=== PATIENT | female | born 1940 | race Caucasian/White ===

== ENCOUNTER 2017-01-22 11:48 | Inpatient (IN) | payer MEDICARE ==
[2017-01-22] MEDS ORDERED: IPRATROPIUM-ALBUTEROL 3 ML NEB INHALATION STA (12:33)
--- NOTE | 2017-01-22 12:35 | ED ---
General Adult HPI - General Chief complaint: Shortness of Breath Stated complaint: Diff Breathing Time Seen by Provider: 01/22/17 12:19 Source: patient, EMS, RN notes reviewed Mode of arrival: EMS Limitations: no limitations - History of Present Illness Initial comments: Patient is a pleasant 76-year-old female presenting to the emergency Department with difficulty breathing. Symptoms have progressed with the past 3-4 days. Patient does have cough with occasional brown sputum. Patient is unclear whether or not she could be having some fevers. Patient has myalgias. Patient believes she may have a history of some mild COPD and states she has smoked 5 cigars a day for the past 60 years. No calf pain or leg swelling. No chest pain. - Related Data Home Medications Medication Instructions Recorded Confirmed Levothyroxine Sodium [Synthroid] 50 mcg PO QAM 03/03/14 01/22/17 Aspirin 81 mg PO QAM 07/29/14 01/22/17 Atenolol 100 mg PO HS 09/25/15 01/22/17 Furosemide [Lasix] 40 mg PO QAM 09/25/15 01/22/17 Baclofen 10 mg PO TID PRN 01/02/16 01/22/17 ALPRAZolam [Xanax] 2 mg PO Q8H PRN 07/17/16 01/22/17 DULoxetine HCL [Cymbalta] 60 mg PO DAILY 07/17/16 01/22/17 oxyCODONE-APAP 10-325MG [Percocet 1 tab PO Q6HR PRN 07/17/16 01/22/17 10-325 mg] Disopyramide Phosphate 150 mg PO BID 01/22/17 01/22/17 Esomeprazole Magnesium [NexIUM 20 mg PO DAILY 01/22/17 01/22/17 24Hr] Allergies Allergy/AdvReac Type Severity Reaction Status Date / Time adhesive tape Allergy Rash/Hives Verified 01/22/17 12:15 Influenza Virus Vaccines Allergy "MAKES HER Verified 01/22/17 12:15 FEEL SICK" Sulfa (Sulfonamide Allergy Rash/Hives Verified 01/22/17 12:15 Antibiotics) amoxicillin trihydrate AdvReac Diarrhea Verified 01/22/17 12:15 [From Augmentin] potassium clavulanate AdvReac Diarrhea Verified 01/22/17 12:15 [From Augmentin] quinidine AdvReac BLOOD CLOTS Verified 01/22/17 12:15 Review of Systems ROS Statement: Those systems with pertinent positive or pertinent negative responses have been documented in the HPI. ROS Other: All systems not noted in ROS Statement are negative. Constitutional: Reports: as per HPI Eyes: Denies: eye pain ENT: Denies: ear pain Respiratory: Reports: cough, dyspnea Cardiovascular: Denies: chest pain Endocrine: Reports: fatigue Gastrointestinal: Denies: abdominal pain Genitourinary: Denies: dysuria Musculoskeletal: Denies: back pain Skin: Denies: rash Neurological: Denies: weakness Past Medical History Past Medical History: Atrial Fibrillation, Atrial Flutter, GERD/Reflux, Hyperlipidemia, Hypertension, Mitral Valve Prolapse (MVP), Rheumatoid Arthritis (RA), Thyroid Disorder Additional Past Medical History / Comment(s): OTHER HX: 03/06/14, 03/30/14, , 07/29/14 with CDIFF colitis, HYPOTHYROID, MVP, urinary incontinence, PROLAPSED MITRAL VALVE- NO PROBLEMS FOR 30 YRS. History of Any Multi-Drug Resistant Organisms: None Reported Date of last positivie culture/infection: UNK MDRO Source:: FECAL Past Surgical History: Adenoidectomy, Cholecystectomy, Hysterectomy, Joint Replacement, Orthopedic Surgery, Tonsillectomy Additional Past Surgical History / Comment(s): 02/18/16 total R hip arthroplasty. Other surgical HX: BILATERAL KNEE REPLACEMENT (2003-RIGHT & 2005 - LEFT); LOWER LUMBAR LAMINECTOMYL4-L5 (2007); LEFT HIP REPLACEMENT (2012) ; RIGHT SHOULDER REPLACEMENT (2008), left total knee arthroplasty revision. Bilateral cataracts with lens implants. FECALCAL TRASPLANT TX FOR C-DIFF three times. Past Anesthesia/Blood Transfusion Reactions: No Reported Reaction Past Psychological History: Anxiety, Depression Smoking Status: Current every day smoker Past Alcohol Use History: None Reported Past Drug Use History: None Reported - Past Family History Mother Family Medical History: Cancer Father Family Medical History: CVA/TIA Sister(s) Family Medical History: Unable to Obtain Daughter(s) Family Medical History: COPD, Myocardial Infarction ([place]) Additional Family Medical History / Comment(s): Mother at age 60 yrs of emphysema/lung CA Son(s) Family Medical History: Myocardial Infarction ([place]) Additional Family Medical History / Comment(s): Father at age 74yrs with "CVA of his larynx" General Exam Limitations: no limitations General appearance: alert, in no apparent distress Head exam: Present: atraumatic Eye exam: Present: normal appearance, PERRL ENT exam: Present: normal oropharynx Neck exam: Present: normal inspection Respiratory exam: Present: normal lung sounds bilaterally Cardiovascular Exam: Present: regular rate, normal rhythm GI/Abdominal exam: Present: soft. Absent: tenderness Extremities exam: Present: normal inspection. Absent: pedal edema, calf tenderness Back exam: Present: normal inspection Neurological exam: Present: alert Psychiatric exam: Present: normal affect, normal mood Skin exam: Present: normal color Course Vital Signs 01/22/17 01/22/17 01/22/17 11:55 12:14 12:29 Temperature 97.7 F Pulse Rate 59 L 54 L Pulse Rate [ Pulse Oximetery ] Respiratory 18 Rate Blood Pressure 103/56 84/46 91/46 O2 Sat by Pulse 100 Oximetry 01/22/17 01/22/17 01/22/17 12:42 12:44 12:50 Temperature Pulse Rate 52 L 50 L Pulse Rate [ 56 L Pulse Oximetery ] Respiratory 22 20 16 Rate Blood Pressure 81/43 O2 Sat by Pulse 99 Oximetry 01/22/17 01/22/17 13:27 13:50 Temperature 97.2 F L Pulse Rate 55 L 60 Pulse Rate [ Pulse Oximetery ] Respiratory 18 Rate Blood Pressure 87/47 90/46 O2 Sat by Pulse 100 100 Oximetry EKG Findings - EKG Comments: EKG Findings:: Sinus bradycardia 56. First-degree AV block with [place] of 246. QRS 88. QT 514. QTC 496. Left axis. Inferior Q waves. Septal Q waves. No acute ST change. Medical Decision Making - Medical Decision Making Patient reevaluated and resting comfortably in bed. Patient states she does have a history of anemia several times previously with unclear etiology. Case discussed in detail with Dr. Weinberg who is familiar with this patient and will admit for Dr. Marino. Consults with JAXSON and Dr. borden. Dr. Byrd has been paged. - Lab Data Result diagrams: 01/22/17 12:20 01/22/17 12:20 Lab Results 10/13/17 10/13/17 10/13/17 Range/Units 12:20 12:20 12:20 WBC 6.2 (3.8-10.6) k/uL RBC 2.66 L (3.80-5.40) m/uL Hgb 5.8 L* (11.4-16.0) gm/dL Hct 20.1 L (34.0-46.0) % MCV 75.6 L (80.0-100.0) fL MCH 21.7 L (25.0-35.0) pg MCHC 28.7 L (31.0-37.0) g/dL RDW 19.2 H (11.5-15.5) % Plt Count 336 (150-450) k/uL Neutrophils % 69 % Lymphocytes % 19 % Monocytes % 7 % Eosinophils % 2 % Basophils % 0 % Neutrophils # 4.3 (1.3-7.7) k/uL Lymphocytes # 1.2 (1.0-4.8) k/uL Monocytes # 0.5 (0-1.0) k/uL Eosinophils # 0.1 (0-0.7) k/uL Basophils # 0.0 (0-0.2) k/uL Manual Slide Review Performed Large Platelets Present Hypochromasia Marked Poikilocytosis Marked Anisocytosis Slight Microcytosis Moderate PT (9.0-12.0) sec INR (<1.2) APTT (22.0-30.0) sec D-Dimer (<0.60) mg/L FEU Sodium 138 (137-145) mmol/L Potassium 3.5 (3.5-5.1) mmol/L Chloride 102 (98-107) mmol/L Carbon Dioxide 23 (22-30) mmol/L Anion Gap 13 mmol/L BUN 10 (7-17) mg/dL Creatinine 0.85 (0.52-1.04) mg/dL Est GFR (MDRD) Af Amer >60 (>60 ml/min/1.73 sqM) Est GFR (MDRD) Non-Af >60 (>60 ml/min/1.73 sqM) Glucose 99 (74-99) mg/dL Calcium 8.9 (8.4-10.2) mg/dL Total Bilirubin 0.2 (0.2-1.3) mg/dL AST 16 (14-36) U/L ALT 21 (9-52) U/L Alkaline Phosphatase 95 (38-126) U/L Total Creatine Kinase 33 (30-135) U/L CK-MB (CK-2) 0.4 (0.0-2.4) ng/mL CK-MB (CK-2) Rel Index 1.2 Troponin I <0.012 (0.000-0.034) ng/mL NT-Pro-B Natriuret Pep pg/mL Total Protein 6.7 (6.3-8.2) g/dL Albumin 3.7 (3.5-5.0) g/dL Stool Occult Blood (Negative) 01/22/17 01/22/17 01/22/17 Range/Units 12:20 12:20 14:00 WBC (3.8-10.6) k/uL RBC (3.80-5.40) m/uL Hgb (11.4-16.0) gm/dL Hct (34.0-46.0) % MCV (80.0-100.0) fL MCH (25.0-35.0) pg MCHC (31.0-37.0) g/dL RDW (11.5-15.5) % Plt Count (150-450) k/uL Neutrophils % % Lymphocytes % % Monocytes % % Eosinophils % % Basophils % % Neutrophils # (1.3-7.7) k/uL Lymphocytes # (1.0-4.8) k/uL Monocytes # (0-1.0) k/uL Eosinophils # (0-0.7) k/uL Basophils # (0-0.2) k/uL Manual Slide Review Large Platelets Hypochromasia Poikilocytosis Anisocytosis Microcytosis PT 10.3 (9.0-12.0) sec INR 1.0 (<1.2) APTT 19.8 L (22.0-30.0) sec D-Dimer 1.01 H (<0.60) mg/L FEU Sodium (137-145) mmol/L Potassium (3.5-5.1) mmol/L Chloride (98-107) mmol/L Carbon Dioxide (22-30) mmol/L Anion Gap mmol/L BUN (7-17) mg/dL Creatinine (0.52-1.04) mg/dL Est GFR (MDRD) Af Amer (>60 ml/min/1.73 sqM) Est GFR (MDRD) Non-Af (>60 ml/min/1.73 sqM) Glucose (74-99) mg/dL Calcium (8.4-10.2) mg/dL Total Bilirubin (0.2-1.3) mg/dL AST (14-36) U/L ALT (9-52) U/L Alkaline Phosphatase (38-126) U/L Total Creatine Kinase (30-135) U/L CK-MB (CK-2) (0.0-2.4) ng/mL CK-MB (CK-2) Rel Index Troponin I (0.000-0.034) ng/mL NT-Pro-B Natriuret Pep 572 pg/mL Total Protein (6.3-8.2) g/dL Albumin (3.5-5.0) g/dL Stool Occult Blood Negative (Negative) - Radiology Data Radiology results: image reviewed (Chest x-ray shows no acute process. Hiatal hernia.) Critical Care Time Critical Care Time: Yes Total Critical Care Time: 31 Disposition Clinical Impression: Anemia, Dyspnea Disposition: ADMITTED IP TO [facility] Condition: Serious Referrals: Franklyn Marino DO [Primary Care Provider] - 1-2 days Decision Time: 14:32
[2017-01-22 13:32] LABS: Prothrombin Time 10.3 sec (9.0-12.0)
[2017-01-22 13:33] LABS: Anisocytosis Slight; Basophils % (A) 0 %; CH 22.4; CHCM 29.3; Eosinophils # (A) 0.1 k/uL (0-0.7); Eosinophils % (A) 2 %; HCT 20.1 % (34.0-46.0); HDW 4.67; Hypochromasia Marked; Luc % (Auto) 2; Lymphocytes # (A) 1.2 k/uL (1.0-4.8); Lymphocytes % (A) 19 %; MCH 21.7 pg (25.0-35.0); MCHC 28.7 g/dL (31.0-37.0); MCV 75.6 fL (80.0-100.0); Microcytosis Moderate; Monocytes # (A) 0.5 k/uL (0-1.0); Monocytes % (A) 7 %; Neutrophils # (A) 4.3 k/uL (1.3-7.7); Neutrophils % (A) 69 %; Poikilocytosis Marked; RBC 2.66 m/uL (3.80-5.40); RDW 19.2 % (11.5-15.5); WBC 6.2 k/uL (3.8-10.6); WBC (Perox) 6.45
[2017-01-22 13:36] LABS: HGB 5.8 gm/dL (11.4-16.0)
[2017-01-22 13:42] LABS: ALT 21 U/L (9-52); AST 16 U/L (14-36); Alkaline Phosphatase 95 U/L (38-126); Anion Gap 13 mmol/L; Blood Urea Nitrogen 10 mg/dL (7-17); Calcium 8.9 mg/dL (8.4-10.2); Carbon Dioxide 23 mmol/L (22-30); Chloride 102 mmol/L (98-107); Glucose 99 mg/dL (74-99); Non-African American GFR(MDRD) >60 (>60 ml/min/1.73 sqM); Potassium 3.5 mmol/L (3.5-5.1); Sodium 138 mmol/L (137-145); Total Bilirubin 0.2 mg/dL (0.2-1.3); Total Protein 6.7 g/dL (6.3-8.2)
--- NOTE | 2017-01-22 13:43 | XR ---
EXAMINATION TYPE: XR chest 2V DATE OF EXAM: 01/22/2017 COMPARISON: 07/17/2016 HISTORY: Shortness of breath and possible bronchitis. TECHNIQUE: Frontal and lateral views of the chest are obtained. FINDINGS: There is no focal air space opacity, pleural effusion, or pneumothorax seen. The cardiac silhouette size is within normal limits. The osseous structures are intact. Enlarging partial intra thoracic stomach/large hiatal hernia as seen in comparison to the prior exam. Partial visualization o f the right humeral arthroplasty. Note is made of high riding left humeral head that may relate to un derlying rotator cuff injury/tear. IMPRESSION: 1. No acute cardiopulmonary process. 2. Enlarging partial intrathoracic stomach/large hiatal hernia in comparison to the prior exam.
[2017-01-22 13:44] LABS: Partial Thromboplastin Time 19.8 sec (22.0-30.0)
[2017-01-22 13:55] LABS: Creatine Kinase 33 U/L (30-135); Large Platelets Present; Manual Review Performed
[2017-01-22 14:08] LABS: Creatine Kinase MB 0.4 ng/mL (0.0-2.4); Troponin I <0.012 ng/mL (0.000-0.034)
[2017-01-22] MEDS ORDERED: PANTOPRAZOLE 40 MG/10 ML VIAL IVP STA (14:08)
[2017-01-22] MEDS ORDERED: NALOXONE 0.4 MG/ML 1 ML VIAL IV PRN (14:35)
[2017-01-22] MEDS: SODIUM CHLORIDE 0.9% 1,000 ML IV SCH (14:37)
[2017-01-22] MEDS ORDERED: BACLOFEN 10 MG TAB PO PRN (15:33)
--- NOTE | 2017-01-22 15:33 | P.HPIM ---
History of Present Illness H&P Date: 01/22/17 This is a 75-year-old female one of Dr. 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 Marino in office about a month ago and the last time she had her blood drawn was about 4 month ago, patient was hospitalized in the past for similar scenario with the hemoglobin dropping to the findings in 6 she underwent upper and lower endoscopy as well as capsule endoscopy without finding any source of bleeding at this time. Patient will be admitted to the hospital and to the intensive care unit as her blood pressure was admitted on the low side blood pressure was 90/50 her heart rate is stable at this time. However because of her hemoglobin and because of her antibodies patient would need to have blood transfusion after checking for the antibodies. ICU consultation Dr. Byrd as well as GI consultation Dr. Mccormack. Patient did have a negative guaiac stool I believe patient will need to be evaluated by hematology oncology at this time to rule out any myelodysplasia. Review of Systems Constitutional: Reports fatigue, Reports lethargy, Reports malaise, Reports weakness, Denies anorexia, Denies chronic headaches, Denies chronic pain, Denies weight gain, Denies weight loss Eyes: denies blurred vision, denies bulging eye, denies decreased vision, denies diplopia Ears: bilateral: decreased hearing Ears, nose, mouth and throat: Denies dysphagia, Denies epistaxis, Denies neck lump, Denies swelling in throat, Denies sore throat, Denies vertigo Cardiovascular: Reports decreased exercise tolerance, Reports dyspnea on exertion, Reports high blood pressure, Reports shortness of breath, Denies chest pain, Denies phlebitis, Denies rapid heart beat, Denies syncope Respiratory: Denies congestion, Denies cough, Denies cough with sputum, Denies home oxygen, Denies sleep apnea, Denies snoring, Denies wheezing Gastrointestinal: Denies abdominal pain, Denies belching, Denies BRBPR, Denies heartburn, Denies hematemesis, Denies hematochezia, Denies indigestion, Denies melena, Denies nausea, Denies vomiting Genitourinary: Reports as per HPI Menstruation: Reports postmenopausal Musculoskeletal: Denies myalgias Musculoskeletal: absent: ankle pain, ankle stiffness, ankle swelling, elbow pain , elbow stiffness, elbow swelling, foot pain, foot stiffness, foot swelling, hand pain, hand stiffness, hand swelling, hip pain, hip stiffness, hip swelling , knee pain, knee stiffness, knee swelling, shoulder pain, shoulder stiffness, shoulder swelling, wrist pain, wrist stiffness, wrist swelling Integumentary: Denies pruritus, Denies rash Neurological: Denies numbness, Denies weakness Psychiatric: Reports anxiety, Reports depression, Denies sadness/tearfulness, Denies sleep disturbances, Denies suicidal ideation Past Medical History Past Medical History: Atrial Fibrillation, Atrial Flutter, GERD/Reflux, Hyperlipidemia, Hypertension, Mitral Valve Prolapse (MVP), Rheumatoid Arthritis (RA), Thyroid Disorder Additional Past Medical History / Comment(s): OTHER HX: 03/06/14, 03/30/14, , 07/29/14 with CDIFF colitis, HYPOTHYROID, MVP, urinary incontinence, PROLAPSED MITRAL VALVE- NO PROBLEMS FOR 30 YRS. History of Any Multi-Drug Resistant Organisms: None Reported Date of last positivie culture/infection: UNK MDRO Source:: FECAL Past Surgical History: Adenoidectomy, Cholecystectomy, Hysterectomy, Joint Replacement, Orthopedic Surgery, Tonsillectomy Additional Past Surgical History / Comment(s): 02/18/16 total R hip arthroplasty. Other surgical HX: BILATERAL KNEE REPLACEMENT (2003-RIGHT & 2005 - LEFT); LOWER LUMBAR LAMINECTOMYL4-L5 (2007); LEFT HIP REPLACEMENT (2012) ; RIGHT SHOULDER REPLACEMENT (2008), left total knee arthroplasty revision. Bilateral cataracts with lens implants. FECALCAL TRASPLANT TX FOR C-DIFF three times. Past Anesthesia/Blood Transfusion Reactions: No Reported Reaction Past Psychological History: Anxiety, Depression Smoking Status: Current every day smoker Past Alcohol Use History: None Reported Past Drug Use History: None Reported - Past Family History Mother Family Medical History: Cancer Father Family Medical History: CVA/TIA Sister(s) Family Medical History: Unable to Obtain Daughter(s) Family Medical History: COPD, Myocardial Infarction ([place]) Additional Family Medical History / Comment(s): Mother at age 60 yrs of emphysema/lung CA Son(s) Family Medical History: Myocardial Infarction ([place]) Additional Family Medical History / Comment(s): Father at age 74yrs with "CVA of his larynx" Medications and Allergies Home Medications Medication Instructions Recorded Confirmed Type Levothyroxine Sodium [Synthroid] 50 mcg PO QAM 03/03/14 01/22/17 History Aspirin 81 mg PO QAM 07/29/14 01/22/17 History Atenolol 100 mg PO HS 09/25/15 01/22/17 History Furosemide [Lasix] 40 mg PO QAM 09/25/15 01/22/17 History Baclofen 10 mg PO TID PRN 01/02/16 01/22/17 History ALPRAZolam [Xanax] 2 mg PO Q8H PRN 07/17/16 01/22/17 History DULoxetine HCL [Cymbalta] 60 mg PO DAILY 07/17/16 01/22/17 History oxyCODONE-APAP 10-325MG [Percocet 1 tab PO Q6HR PRN 07/17/16 01/22/17 History 10-325 mg] Disopyramide Phosphate 150 mg PO BID 01/22/17 01/22/17 History Esomeprazole Magnesium [NexIUM 20 mg PO DAILY 01/22/17 01/22/17 History 24Hr] Allergies Allergy/AdvReac Type Severity Reaction Status Date / Time adhesive tape Allergy Rash/Hives Verified 01/22/17 12:15 Influenza Virus Vaccines Allergy "MAKES HER Verified 01/22/17 12:15 FEEL SICK" Sulfa (Sulfonamide Allergy Rash/Hives Verified 01/22/17 12:15 Antibiotics) amoxicillin trihydrate AdvReac Diarrhea Verified 01/22/17 12:15 [From Augmentin] potassium clavulanate AdvReac Diarrhea Verified 01/22/17 12:15 [From Augmentin] quinidine AdvReac BLOOD CLOTS Verified 01/22/17 12:15 Physical Exam Vitals: Vital Signs Temp Pulse Pulse Resp BP Pulse Ox 01/22/17 14:53 64 16 107/47 100 01/22/17 13:50 97.2 F L 60 18 90/46 100 01/22/17 13:27 55 L 87/47 100 01/22/17 12:50 50 L 16 01/22/17 12:44 56 L 20 01/22/17 12:42 52 L 22 81/43 99 01/22/17 12:29 54 L 91/46 01/22/17 12:14 84/46 01/22/17 11:55 97.7 F 59 L 18 103/56 100 Intake and Output 01/22/17 01/22/17 01/22/17 06:59 14:59 22:59 Other: Weight 90.718 kg Patient Weight 01/23/17 06:59 Weight 90.718 kg - Constitutional General appearance: average body habitus, mild distress - EENT Eyes: anicteric sclerae, EOMI, PERRLA, no ptosis, no scleral icterus, normal appearance ENT: hard of hearing, NA/AT, normal oropharynx, no thrush, no tonsillar exudates Ears: bilateral: normal - Neck Neck: no lymphadenopathy, normal ROM, no rigidity, no stridor, no thyromegaly Carotids: bilateral: upstroke normal - Respiratory Respiratory: bilateral: diminished, negative: dullness, rales, rhonchi, wheezing , prolonged expiration, prolonged inspiration - Cardiovascular Rhythm: regular Heart sounds: normal: S1, S2 Abnormal Heart Sounds: systolic murmur, no S3 Gallop, no S4 Gallop - Gastrointestinal General gastrointestinal: normal bowel sounds, soft, no tenderness, no umbilical hernia, no ventral hernia - Integumentary Integumentary: normal, normal turgor - Neurologic Neurologic: CNII-XII intact - Musculoskeletal Musculoskeletal: generalized weakness, strength equal bilaterally - Psychiatric Psychiatric: A&O x's 3, appropriate affect, intact judgment & insight Results CBC & Chem 7: 01/22/17 12:20 01/22/17 12:20 Labs: Abnormal Lab Results - Last 24 Hours (Table) 01/22/17 01/22/17 Range/Units 12:20 12:20 RBC 2.66 L (3.80-5.40) m/uL Hgb 5.8 L* (11.4-16.0) gm/dL Hct 20.1 L (34.0-46.0) % MCV 75.6 L (80.0-100.0) fL MCH 21.7 L (25.0-35.0) pg MCHC 28.7 L (31.0-37.0) g/dL RDW 19.2 H (11.5-15.5) % APTT 19.8 L (22.0-30.0) sec D-Dimer 1.01 H (<0.60) mg/L FEU Thrombosis Risk Factor Assmnt - DVT/VTE Prophylaxis DVT/VTE Prophylaxis: Mechanical Prophylaxis ordered, Contraindicated - See note Assessment and Plan Plan: Assessment and plan: 1. Acute blood loss anemia symptomatic. Type and cross and transfuse 3 units of packed red blood cells, check blood for antibodies, admit the patient to intensive care unit, start IV fluid resuscitation normal saline 100 mL an hour, Dr. Byrd consultation, Dr. You consultation, considering adding hematology oncology consultation for possible bone marrow biopsy. 2. Microcytic anemia. Patient did have an EGD colonoscopy and capsule endoscopy last year without delineation of the source of the bleeding. There is no evidence of any hematuria this time, even though its microcytic anemia patient would need to have bone marrow evaluation. 3. History of SVT. Continue patient on Norpace 100 mg orally twice every day and atenolol 100 mg orally once every day. 4. Hypertension and hypertensive cardiovascular disease. Continue atenolol 100 mg orally once every day. 5. Hyperlipidemia. Low-cholesterol diet. 6. Moderate COPD. stable. 7. GERD. Continue Protonix 40 mg IV push daily. 8. Rheumatoid arthritis. Stable. 9. Hypothyroidism. Continue Synthroid 50 g orally once every day. 10. Depression. Continue Cymbalta to 60 mg orally once every day. 11. 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 12. DVT prophylaxis. Bilateral knee-high TIMOTEO hose. 13. GI prophylaxis. Continue Protonix 40 mg IV push daily. 14. Admitted to inpatient. Estimate a length of stay 2 midnights. 15. Patient is full code.
[2017-01-22 16:54] LABS: Glucose,Whole Blood 97 mg/dL (75-99)
[2017-01-22 16:54] LABS: Reticulocyte % 2.3 % (0.5-2.0)
--- NOTE | 2017-01-22 16:58 | P.CNPUL ---
<Shannan Vazquez - Last Filed: 01/22/17 16:03> History of Present Illness Consult date: 01/22/17 Requesting physician: Shirley Weinberg Reason for consult: dyspnea Chief complaint: Increased shortness of breath and weakness History of present illness: This is a 76-year-old female patient presenting to the emergency room with 2 week history of increased shortness of breath and weakness. 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 She is a current smoker, she smokes 5 cigarettes a day and she has no intentions on quitting per her statement. Patient has a rescue inhaler at home which she uses on an as-needed basis. She states in the last 2 weeks she has been using it quite frequently due to increased dyspnea even ambulating around the house. Her oral intake has been poor because she has been too weak to prepare meals for herself. She denies having fever or chills, no hemoptysis , no chest pain. She states she had been evaluated by the GI service for her anemia and had undergone an EGD, colonoscopy and the capsule endoscopy a year ago with Dr. Mccormack without finding any source of bleeding. Upper endoscopy from 11/21/2014 revealed moderate size hiatal hernia and mild antral gastritis. Colonoscopy showed no evidence of colitis or colorectal neoplasia. Patient was started on supplemental iron at that time for severe iron deficiency anemia. In the emergency room she was found to have a hemoglobin of 5.9, with evidence of microcytosis and hypochromasia. Her last hemoglobin from July 2016 was at 14.7. Her blood pressure is ranging from 80-100 systolic and diastolic in the 40s. She is currently on 2 L oxygen per nasal cannula with O2 saturations around 100%, she is afebrile, no evidence of tachycardia. EKG showed sinus bradycardia with first-degree AV block with a rate of 56 BPM. On examination patient is awake alert resting on the gurney, in no acute distress. She is complaining of a dry mouth because she hasn't been given anything to eat or drink. Mucous membranes are dry. Lung sounds are diminished with a few scattered rales at posterior bases. Heart sounds are positive for soft systolic murmur. Abdomen is soft and nontender. Stool for occult blood was negative. She denies hematemesis or hematochezia. Denies change in her bowel habits. No nausea no vomiting. Patient will be transfused with 2 units of blood for symptomatic anemia, however she was found to have multiple antibiotics on her type and screen and this will likely slightly delay her transfusion. She appears to be relatively stable despite her slight hypotension and hemoglobin of 5.9. She will be placed in the intensive care for close monitoring. Will await hematology and GI service input. Review of Systems Constitutional: Denies chills, Denies fever Eyes: denies blurred vision, denies pain Ears, nose, mouth and throat: Denies headache, Denies sore throat Cardiovascular: Reports decreased exercise tolerance, Denies chest pain, Denies shortness of breath Respiratory: Reports dyspnea, Denies cough Gastrointestinal: Denies abdominal pain, Denies diarrhea, Denies nausea, Denies vomiting Genitourinary: Denies dysuria, Denies hematuria Musculoskeletal: Denies myalgias Integumentary: Denies pruritus, Denies rash Neurological: Denies numbness, Denies weakness Psychiatric: Denies anxiety, Denies depression Endocrine: Denies fatigue, Denies weight change Past Medical History Past Medical History: Atrial Fibrillation, Atrial Flutter, GERD/Reflux, Hyperlipidemia, Hypertension, Mitral Valve Prolapse (MVP), Rheumatoid Arthritis (RA), Thyroid Disorder Additional Past Medical History / Comment(s): OTHER HX: 03/06/14, 03/30/14, , 07/29/14 with CDIFF colitis, HYPOTHYROID, MVP, urinary incontinence, PROLAPSED MITRAL VALVE- NO PROBLEMS FOR 30 YRS. History of Any Multi-Drug Resistant Organisms: None Reported Date of last positivie culture/infection: UNK MDRO Source:: FECAL Past Surgical History: Adenoidectomy, Cholecystectomy, Hysterectomy, Joint Replacement, Orthopedic Surgery, Tonsillectomy Additional Past Surgical History / Comment(s): 02/18/16 total R hip arthroplasty. Other surgical HX: BILATERAL KNEE REPLACEMENT (2003-RIGHT & 2005 - LEFT); LOWER LUMBAR LAMINECTOMYL4-L5 (2007); LEFT HIP REPLACEMENT (2012) ; RIGHT SHOULDER REPLACEMENT (2008), left total knee arthroplasty revision. Bilateral cataracts with lens implants. FECALCAL TRASPLANT TX FOR C-DIFF three times. Past Anesthesia/Blood Transfusion Reactions: No Reported Reaction Past Psychological History: Anxiety, Depression Smoking Status: Current every day smoker Past Alcohol Use History: None Reported Past Drug Use History: None Reported - Past Family History Mother Family Medical History: Cancer Father Family Medical History: CVA/TIA Sister(s) Family Medical History: Unable to Obtain Daughter(s) Family Medical History: COPD, Myocardial Infarction (VT) Additional Family Medical History / Comment(s): Mother at age 60 yrs of emphysema/lung CA Son(s) Family Medical History: Myocardial Infarction (VT) Additional Family Medical History / Comment(s): Father at age 74yrs with "CVA of his larynx" Medications and Allergies Home Medications Medication Instructions Recorded Confirmed Type Levothyroxine Sodium [Synthroid] 50 mcg PO QAM 03/03/14 01/22/17 History Aspirin 81 mg PO QAM 07/29/14 01/22/17 History Atenolol 100 mg PO HS 09/25/15 01/22/17 History Furosemide [Lasix] 40 mg PO QAM 09/25/15 01/22/17 History Baclofen 10 mg PO TID PRN 01/02/16 01/22/17 History ALPRAZolam [Xanax] 2 mg PO Q8H PRN 07/17/16 01/22/17 History DULoxetine HCL [Cymbalta] 60 mg PO DAILY 07/17/16 01/22/17 History oxyCODONE-APAP 10-325MG [Percocet 1 tab PO Q6HR PRN 07/17/16 01/22/17 History 10-325 mg] Disopyramide Phosphate 150 mg PO BID 01/22/17 01/22/17 History Esomeprazole Magnesium [NexIUM 20 mg PO DAILY 01/22/17 01/22/17 History 24Hr] Allergies Allergy/AdvReac Type Severity Reaction Status Date / Time adhesive tape Allergy Rash/Hives Verified 01/22/17 12:15 Influenza Virus Vaccines Allergy "MAKES HER Verified 01/22/17 12:15 FEEL SICK" Sulfa (Sulfonamide Allergy Rash/Hives Verified 01/22/17 12:15 Antibiotics) amoxicillin trihydrate AdvReac Diarrhea Verified 01/22/17 12:15 [From Augmentin] potassium clavulanate AdvReac Diarrhea Verified 01/22/17 12:15 [From Augmentin] quinidine AdvReac BLOOD CLOTS Verified 01/22/17 12:15 Physical Exam Vitals: Vital Signs Temp Pulse Pulse Resp BP Pulse Ox 01/22/17 14:53 64 16 107/47 100 01/22/17 13:50 97.2 F L 60 18 90/46 100 01/22/17 13:27 55 L 87/47 100 01/22/17 12:50 50 L 16 01/22/17 12:44 56 L 20 01/22/17 12:42 52 L 22 81/43 99 01/22/17 12:29 54 L 91/46 01/22/17 12:14 84/46 01/22/17 11:55 97.7 F 59 L 18 103/56 100 Intake and Output 01/22/17 01/22/17 01/22/17 06:59 14:59 22:59 Other: Weight 90.718 kg Patient Weight 01/23/17 06:59 Weight 90.718 kg - Constitutional General appearance: average body habitus, cooperative, no acute distress - EENT Eyes: EOMI, normal appearance Ears: bilateral: normal - Neck Neck: no lymphadenopathy, normal ROM Carotids: bilateral: upstroke normal Thyroid: bilateral: normal size - Respiratory Respiratory: bilateral: diminished, rales (few ) - Cardiovascular Rhythm: regular Heart sounds: normal: S1, S2 Abnormal Heart Sounds: systolic murmur systolic murmur (1) Type: holo Grade: II/ Radiation: none dorsalis pedis Peripheral Pulses: bilateral: Diminished radial pulse Peripheral Pulses: bilateral: Diminished - Gastrointestinal General gastrointestinal: no organomegaly, soft, no tenderness - Integumentary Integumentary: normal turgor, pale - Neurologic Neurologic: CNII-XII intact - Musculoskeletal Musculoskeletal: generalized weakness - Psychiatric Psychiatric: A&O x's 3, appropriate affect, intact judgment & insight Results - Laboratory Findings CBC and BMP: 01/22/17 12:20 01/22/17 12:20 PT/INR, D-dimer PT 10.3 sec (9.0-12.0) 01/22/17 12:20 INR 1.0 (<1.2) 01/22/17 12:20 D-Dimer 1.01 mg/L FEU (<0.60) H 01/22/17 12:20 Abnormal lab findings: Abnormal Labs 01/22/17 01/22/17 12:20 12:20 RBC 2.66 L Hgb 5.8 L* Hct 20.1 L MCV 75.6 L MCH 21.7 L MCHC 28.7 L RDW 19.2 H APTT 19.8 L D-Dimer 1.01 H - Diagnostic Findings Chest x-ray: report reviewed Assessment and Plan Plan: Assessment: #1. Acute symptomatic microcytic hypochromic anemia, hemoglobin 5.9. Patient has multiple antibodies, awaiting transfusion with 3 units of blood. Await input of GI service and hematology. EGD/colonoscopy on 11/21/2014 with no obvious source of bleeding. #2. Dyspnea probably secondary to profound anemia. Chest x-ray from 2016 has been reviewed and showed no evidence of focal airspace opacity, pleural effusion or pneumothorax. No evidence of leukocytosis, chest congestion , or increased sputum production in the patient with a history of COPD. #3. History of rheumatoid arthritis #4. His G of atrial fibrillation, currently in sinus rhythm with a first- degree AV block with a rate of 56 BPM #5. History of prolapsed mitral valve #6. GERD/reflux, on esomeprazole 20 mg by mouth daily for maintenance dose #7. History of hypothyroidism, on thyroid replacement therapy #8. History of COPD, not currently on any maintenance inhalers #9. Ongoing and chronic nicotine dependence, refuses to quit #10. Depression #11. Hypertension, currently hypotensive #12. Hyperlipidemia #13. History of C. difficile colitis status post fecal transplant Plan: Transfuse 2 units of PRBC as soon as they become available. Transfer to ICU for close hemodynamic monitoring. GI and DVT prophylaxis per protocol. Patient may have clear liquid diet. Agree with reticulocyte count, TIBS, and ferritin. Await GI service and hematology input. Patient's COPD seems to be stable for now. Agree with DuoNeb nebulized treatments on an as-needed basis. We will continue to closely follow this patient in the intensive care. I performed a history & physical examination of the patient and discussed their management with my nurse practitioner, Shannan Vazquez. I reviewed the nurse practitioner's note and agree with the documented findings and plan of care. <Adonis Byrd - Last Filed: 01/22/17 20:17> Physical Exam Vitals: Vital Signs Temp Pulse Pulse Resp BP Pulse Ox 01/22/17 18:30 65 18 101/45 100 01/22/17 18:00 63 15 87/41 100 01/22/17 17:34 56 L 01/22/17 17:30 57 L 49 H 87/41 100 01/22/17 17:10 98.0 F 58 L 13 87/41 98 01/22/17 17:00 63 21 114/72 99 01/22/17 16:50 114/72 01/22/17 16:40 114/72 01/22/17 16:35 97.1 F L 58 L 14 135/60 100 01/22/17 16:30 114/72 01/22/17 16:20 114/72 01/22/17 16:06 60 15 90/49 100 01/22/17 15:45 97.5 F L 14 L 60 H 87/42 100 01/22/17 14:53 64 16 107/47 100 01/22/17 13:50 97.2 F L 60 18 90/46 100 01/22/17 13:27 55 L 87/47 100 01/22/17 12:50 50 L 16 01/22/17 12:44 56 L 20 01/22/17 12:42 52 L 22 81/43 99 01/22/17 12:29 54 L 91/46 01/22/17 12:14 84/46 01/22/17 11:55 97.7 F 59 L 18 103/56 100 Intake and Output 01/22/17 01/22/17 01/22/17 06:59 14:59 22:59 Intake Total 200 Balance 200 Intake: IV 200 0.9 NACL 200 Other: Weight 90.718 kg Patient Weight 01/23/17 06:59 Weight 90.718 kg Results - Laboratory Findings CBC and BMP: 01/22/17 12:20 01/22/17 12:20 PT/INR, D-dimer PT 10.3 sec (9.0-12.0) 01/22/17 12:20 INR 1.0 (<1.2) 01/22/17 12:20 D-Dimer 1.01 mg/L FEU (<0.60) H 01/22/17 12:20 Abnormal lab findings: Abnormal Labs 01/22/17 01/22/17 01/22/17 12:20 12:20 16:16 RBC 2.66 L Hgb 5.8 L* Hct 20.1 L MCV 75.6 L MCH 21.7 L MCHC 28.7 L RDW 19.2 H Retic Count APTT 19.8 L D-Dimer 1.01 H Crossmatch See Detail 01/22/17 16:16 RBC Hgb Hct MCV MCH MCHC RDW Retic Count 2.3 H APTT D-Dimer Crossmatch Assessment and Plan Plan: This is a joint evaluation that was done with the [employer] ADMINISTRATOR. The patient was seen and evaluated and I agree on the plan mentioned above and the patient will be observed here in the [facility] for severe anemia and possible GI blood loss.
[2017-01-22] MEDS: ATENOLOL 50 MG TAB PO SCH (20:57)
[2017-01-22] MEDS: DISOPYRAMIDE 150 MG PO SCH (20:58)
[2017-01-22] MEDS: oxyCODONE-APAP 10-325MG 1 EACH TAB PO PRN (23:36)
[2017-01-22] MEDS: ALPRAZolam 0.5 MG TAB PO PRN (23:36)
[2017-01-23] MEDS: SODIUM CHLORIDE 0.9% 1,000 ML IV SCH ×3 (00:56→15:19)
[2017-01-23 03:05] LABS: Iron Saturation 2.49 (12.00-45.00)
[2017-01-23] MEDS: oxyCODONE-APAP 10-325MG 1 EACH TAB PO PRN ×3 (06:37→23:06)
[2017-01-23] MEDS: LEVOTHYROXINE 50 MCG TAB PO SCH (06:37)
[2017-01-23 06:45] LABS: Anisocytosis Slight; Basophils % (A) 1 %; CH 24.2; CHCM 29.8; Eosinophils # (A) 0.1 k/uL (0-0.7); Eosinophils % (A) 2 %; Hypochromasia Marked; Luc # (Auto) 0.21; Luc % (Auto) 3; Lymphocytes # (A) 1.3 k/uL (1.0-4.8); Lymphocytes % (A) 21 %; MCH 23.4 pg (25.0-35.0); MCHC 29.1 g/dL (31.0-37.0); MCV 80.3 fL (80.0-100.0); Mean Platelet Volume 7.4; Microcytosis Slight; Monocytes # (A) 0.5 k/uL (0-1.0); Monocytes % (A) 9 %; Neutrophils % (A) 64 %; Poikilocytosis Marked; RBC 3.61 m/uL (3.80-5.40); RDW 17.4 % (11.5-15.5); WBC 6.2 k/uL (3.8-10.6); WBC (Perox) 5.94
[2017-01-23 06:49] LABS: HGB 8.5 gm/dL (11.4-16.0)
[2017-01-23 07:06] LABS: ALT 22 U/L (9-52); AST 27 U/L (14-36); Alkaline Phosphatase 90 U/L (38-126); Anion Gap 11 mmol/L; Blood Urea Nitrogen 9 mg/dL (7-17); Calcium 8.7 mg/dL (8.4-10.2); Carbon Dioxide 22 mmol/L (22-30); Chloride 109 mmol/L (98-107); Glucose 86 mg/dL (74-99); Magnesium 1.8 mg/dL (1.6-2.3); Non-African American GFR(MDRD) >60 (>60 ml/min/1.73 sqM); Potassium 3.8 mmol/L (3.5-5.1); Sodium 142 mmol/L (137-145); Total Bilirubin 0.4 mg/dL (0.2-1.3); Total Protein 6.3 g/dL (6.3-8.2)
[2017-01-23 07:26] LABS: Iron 24 ug/dL (37-170)
[2017-01-23] MEDS ORDERED: POTASSIUM CHLORIDE ER 20 MEQ TAB.ER PO ONE (08:00)
[2017-01-23] MEDS: DISOPYRAMIDE 150 MG PO SCH ×2 (08:27→20:48)
[2017-01-23] MEDS: MENTHOL (NICE) LOZENGE MUCOUS MEM PRN ×2 (08:27→23:06)
[2017-01-23] MEDS: MAGNESIUM SULFATE-D5W PMX 1 GM in DEXTROSE/WATER 1 100ML.BAG IVPB SCH ×2 (08:27→10:53)
[2017-01-23] MEDS: PANTOPRAZOLE 40 MG/10 ML VIAL IV SCH (08:27)
--- NOTE | 2017-01-23 08:44 | P.PN ---
Subjective Progress Note Date: 01/23/17 This is a 76-year-old female patient presenting to the emergency room with 2 week history of increased shortness of breath and weakness. 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 She is a current smoker, she smokes 5 cigarettes a day and she has no intentions on quitting per her statement. Patient has a rescue inhaler at home which she uses on an as-needed basis. She states in the last 2 weeks she has been using it quite frequently due to increased dyspnea even ambulating around the house. Her oral intake has been poor because she has been too weak to prepare meals for herself. She denies having fever or chills, no hemoptysis , no chest pain. She states she had been evaluated by the GI service for her anemia and had undergone an EGD, colonoscopy and the capsule endoscopy a year ago with Dr. Mccormack without finding any source of bleeding. Upper endoscopy from 11/21/2014 revealed moderate size hiatal hernia and mild antral gastritis. Colonoscopy showed no evidence of colitis or colorectal neoplasia. Patient was started on supplemental iron at that time for severe iron deficiency anemia. In the emergency room she was found to have a hemoglobin of 5.9, with evidence of microcytosis and hypochromasia. Her last hemoglobin from July 2016 was at 14.7. Her blood pressure is ranging from 80-100 systolic and diastolic in the 40s. She is currently on 2 L oxygen per nasal cannula with O2 saturations around 100%, she is afebrile, no evidence of tachycardia. EKG showed sinus bradycardia with first-degree AV block with a rate of 56 BPM. On examination patient is awake alert resting on the gurney, in no acute distress. She is complaining of a dry mouth because she hasn't been given anything to eat or drink. Mucous membranes are dry. Lung sounds are diminished with a few scattered rales at posterior bases. Heart sounds are positive for soft systolic murmur. Abdomen is soft and nontender. Stool for occult blood was negative. She denies hematemesis or hematochezia. Denies change in her bowel habits. No nausea no vomiting. Patient will be transfused with 2 units of blood for symptomatic anemia, however she was found to have multiple antibiotics on her type and screen and this will likely slightly delay her transfusion. She appears to be relatively stable despite her slight hypotension and hemoglobin of 5.9. She will be placed in the intensive care for close monitoring. Will await hematology and GI service input. On 01/23/2017 the patient is being seen in follow-up. The patient is doing extremely well. She has no specific complaints. She got transfused with a total of 2 units of packed RBC yesterday. Serum iron level came back low at 24. She claims that she has been taking oral iron supplements over probably she is not absorbing the iron the way she is supposed to. Her follow-up hemoglobin from today is up to 8.5. No evidence of any GI bleeding. No hematemesis. No melanotic stools. Stool for occult blood was negative. Troponins been negative. No respiratory distress. No chest pain. She'll be given IV iron. She'll be transferred to medical floor today. Objective - Vital Signs Vital signs: Vital Signs Temp 98.4 F 01/23/17 04:00 Pulse 54 L 01/23/17 07:00 Resp 20 01/23/17 04:00 BP 135/68 01/23/17 07:00 Pulse Ox 95 01/23/17 07:00 Intake & Output 01/22/17 01/23/17 01/23/17 18:59 06:59 18:59 Intake Total 200 2440 100 Output Total 1650 50 Balance 200 790 50 Weight 90.718 kg 97 kg Intake: IV 200 1200 100 0.9 NACL 200 1200 100 Blood Product 1240 Rc As-1 Unit 310 [id number] Rc As-1 Unit 310 [id number] Output: Urine 1650 50 - Exam The patient appeared well nourished and normally developed. Vital signs as documented. Head exam is unremarkable. No scleral icterus or corneal arcus noted. Neck is without jugular venous distension, thyromegaly, or carotid bruits. Carotid upstrokes are brisk bilaterally. Lungs are clear to auscultation and percussion. Cardiac exam reveals the PMI to be normally sized and situated. Rhythm is regular. First and second heart sounds normal. No murmurs, rubs or gallops. Abdominal exam reveals normal bowel sounds, no masses , no organomegaly and no aortic enlargement. Extremities are nonedematous and both femoral and pedal pulses are normal.Examination of the skin revealed no evidence of significant rashes, suspicious appearing nevi or other concerning lesions. Neurologically the patient is awake and alert and there is no focal neurological deficit. - Labs CBC & Chem 7: 01/23/17 06:32 01/23/17 06:32 Labs: Abnormal Lab Results - Last 24 Hours (Table) 01/22/17 01/22/17 01/22/17 Range/Units 12:20 12:20 16:16 RBC 2.66 L (3.80-5.40) m/uL Hgb 5.8 L* (11.4-16.0) gm/dL Hct 20.1 L (34.0-46.0) % MCV 75.6 L (80.0-100.0) fL MCH 21.7 L (25.0-35.0) pg MCHC 28.7 L (31.0-37.0) g/dL RDW 19.2 H (11.5-15.5) % Retic Count (0.5-2.0) % APTT 19.8 L (22.0-30.0) sec D-Dimer 1.01 H (<0.60) mg/L FEU Chloride (98-107) mmol/L Iron (37-170) ug/dL Albumin (3.5-5.0) g/dL Crossmatch See Detail 01/22/17 01/23/17 01/23/17 Range/Units 16:16 06:32 06:32 RBC 3.61 L (3.80-5.40) m/uL Hgb 8.5 L D (11.4-16.0) gm/dL Hct 29.0 L (34.0-46.0) % MCV (80.0-100.0) fL MCH 23.4 L (25.0-35.0) pg MCHC 29.1 L (31.0-37.0) g/dL RDW 17.4 H (11.5-15.5) % Retic Count 2.3 H (0.5-2.0) % APTT (22.0-30.0) sec D-Dimer (<0.60) mg/L FEU Chloride 109 H (98-107) mmol/L Iron 24 L (37-170) ug/dL Albumin 3.4 L (3.5-5.0) g/dL Crossmatch Assessment and Plan Plan: Assessment: #1. symptomatic microcytic hypochromic anemia, hemoglobin 5.9. This is likely due to iron deficiency and there is no indication for any acute gastrointestinal examination was blood loss. The patient received 2 units of packed RBCs. The patient responded nicely in hemoglobin is above 8. Iron levels are low and the patient will be given IV iron. #2. Dyspnea probably secondary to profound anemia. Patient also has a background COPD. #3. History of rheumatoid arthritis #4. History of atrial fibrillation, currently in sinus rhythm with a first- degree AV block with a rate of 56 BPM #5. History of prolapsed mitral valve #6. GERD/reflux, on esomeprazole 20 mg by mouth daily for maintenance dose #7. History of hypothyroidism, on thyroid replacement therapy #8. History of COPD, not currently on any maintenance inhalers #9. Ongoing and chronic nicotine dependence, refuses to quit #10. Depression #11. Hypertension, currently hypotensive #12. Hyperlipidemia #13. History of C. difficile colitis status post fecal transplant Plan Give the patient IV iron 300 mg, monitor hemoglobin, watch for any bleeding, the patient is stable and she can be transferred out of the intensive care unit.
[2017-01-23] MEDS ORDERED: SODIUM FERRIC GLUCONAT-SUCROSE 125 MG in SODIUM CHLORIDE 0.9% 100 ML IVPB ONE (09:00)
[2017-01-23] MEDS ORDERED: DULoxetine HCL 60 MG CAPSULE.DR PO SCH (09:00)
--- NOTE | 2017-01-23 10:14 | CONS ---
CONSULTATION REQUESTING PHYSICIAN: Dr. Weinberg REASON FOR CONSULTATION: Severe symptomatic anemia. HISTORY OF PRESENT ILLNESS: The patient is a 76-year-old pleasant white male who is known to me from her previous hospitalizations. She was admitted with shortness of breath and was noted to have severe symptomatic anemia with a hemoglobin of 5.5 requiring 3 units of blood transfusions. This morning hemoglobin is up to 8.4 g/dL. The patient initially presented with similar symptoms in November of 2014 at which time she underwent an upper endoscopy as well as colonoscopy by me that revealed moderate-size hiatal hernia and Silviano erosions. Subsequently, she was treated with iron supplements and anemia completely resolved. She was readmitted in November of 2015 with severe anemia again at which time a small bowel capsule endoscopy was done which was reported as normal. Once again, she was treated with iron supplements and her last hemoglobin three months ago was 14.5 g/dL. For the last few days she was having some progressive weakness and shortness of breath and now came to the emergency room and once again was noted to have a hemoglobin of 5.6. She got two units of blood. She is feeling much better. Her shortness of breath has improved. She denies any abdominal pain reports no nausea, vomiting. Denies any rectal bleeding or melena. She was noted to have Hemoccult-positive stool. She denies any recent NSAID use. 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 PAST SURGICAL HISTORY: Appendectomy, cholecystectomy, hysterectomy, tonsillectomy, EGD, colonoscopy in November of 2014. MEDICATIONS: At home include: 1. Synthroid. 2. Aspirin. 3. Lasix. 4. . 5. Xanax. 6. Cymbalta. 7. Percocet. 8. Nexium. ALLERGIES: TO SULFA, AUGMENTIN, QUINIDINE, INFLUENZA VACCINE. SOCIAL HISTORY: No smoking. No alcohol use. FAMILY HISTORY: Unremarkable. Mother had some cancer. Father had some CVA. REVIEW OF SYSTEMS: Cardiopulmonary: No chest pain, shortness of breath. Genitourinary: No dysuria, hematuria. Musculoskeletal unremarkable. Skin unremarkable. Endocrine unremarkable. Psychiatric unremarkable. Neurology unremarkable. ENT vision unremarkable. Constitutional no recent weight loss. No fever, chills, night sweats. PHYSICAL EXAMINATION: She appears comfortable. No apparent distress. VITAL SIGNS: Stable. Blood pressure is 135/68, pulse 54. HEENT: examination unremarkable. Conjunctivae pink. Sclerae anicteric. Oral cavity no lesions. Neck no JVD. No lymph node enlargement. CHEST: Clear to auscultation. HEART: Regular rate and rhythm. ABDOMEN: Obese. Bowel sounds are positive. No organomegaly. Extremities no pedal edema. Skin no rashes. NEUROLOGIC: Alert and oriented x3. No focal deficits. LABS: From today, WBC 6.2, hemoglobin 5.8, MCV 75, platelets are normal. PT/INR is within normal limits. Basic metabolic panel is within normal limits. Stool Hemoccult was negative. Today hemoglobin is 8.5. 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 As mentioned above. She had an EGD and colonoscopy by me in November of 2014 and was noted to have hiatal hernia with Silviano erosions and the sigmoid diverticulosis. In November of 2015 during her last admission to the hospital with severe anemia, she had a small bowel capsule endoscopy done that was negative. She presents this time with similar symptoms with a severe anemia hemoglobin of 5.6, requiring blood transfusion, most likely we are dealing with occult GI blood loss and so far she does not have any clinically any evidence of subacute or active bleeding. RECOMMENDATIONS: 1. Agree with blood transfusion. 2. Regular diet. 3. We will proceed with an upper endoscopy to evaluate the hiatal hernia and Silviano erosions that were noted on upper endoscopy 2 years ago. As this would potentially be the cause of chronic occult GI blood loss. Upper endoscopy will be scheduled for tomorrow. I discussed with the patient benefits and complications of procedure and based on the findings, further recommendations will follow. Thank you for this consultation. MMODL / IJN: [id number] /
--- NOTE | 2017-01-23 12:12 | PN ---
PROGRESS NOTE INTERVAL HISTORY: Patient continues to be hemodynamically stable. No major events reported by nursing staff. Received 3 units transfusion yesterday without any major side effects. Patient currently is denying chest pain, shortness of breath, nausea, vomiting, abdominal pain, dizziness, lightheadedness and blurry vision. PHYSICAL EXAMINATION: VITAL SIGNS: 98.0, 57, respiratory rate 20, blood pressure 134/69. Saturation is 96% on room air. LUNGS: Clear to auscultation bilaterally. HEART: Normal S1, S2. ABDOMEN: Soft. No tenderness. Positive bowel sounds in all 4 quadrants. LOWER EXTREMITIES: No edema. PSYCH: Alert, oriented x3. Relaxed mood and affect. SKIN: No new rash. IMAGING AND LABS: Hemoglobin improved to 8.5 today. Normal otherwise CBC. Retic count was on the higher side at 2.3. Chemistry showed normal findings. Stool for occult blood came back negative. Albumin slightly low at 3.4. ASSESSMENT AND PLAN: 1. Anemia, likely related to blood loss. I discussed with Dr. Mccormack from GI current treatment plan, and Dr. Mccormack has high suspicion for upper GI bleed and would like to perform EGD in the morning, as most recent EGD was 2 years ago. She would like to ensure that her hiatal hernia is still not the cause for her current bleed, especially with a history of Silviano erosions in 2015. Patient will be continued on proton pump inhibitors. We will continue monitoring her vital signs closely. Continue repeating her blood work in the morning and consider discharging patient home tomorrow if GI clears her. 2. Patient refused hematology/oncology evaluation; said she is not interested in biopsy, bone marrow biopsy, as she is 76 and not interested in any further treatment. 3. Hypertension, under fair control. 4. Hyperlipidemia. Follow up with primary care physician. 5. Gastroesophageal reflux disease. Will continue PPI. 6. Rheumatoid arthritis/osteoarthritis; pain under fair control. 7. Hypothyroidism. Continue Synthroid. 8. Discharge planning in the morning based on clinical progress. MMODL / IJN: [id number] /
[2017-01-23 12:32] VITALS: BMI 34.4
[2017-01-23] MEDS: DULoxetine HCL 60 MG CAPSULE.DR PO SCH (20:48)
[2017-01-23] MEDS: ATENOLOL 50 MG TAB PO SCH (20:49)
[2017-01-23] MEDS: IPRATROPIUM-ALBUTEROL 3 ML NEB INHALATION PRN (21:42)
[2017-01-23] MEDS: ALPRAZolam 0.5 MG TAB PO PRN (23:07)
[2017-01-23] MEDS: ZOLPIDEM 10 MG TAB PO SCH (23:48)
[2017-01-24] MEDS: LEVOTHYROXINE 50 MCG TAB PO SCH (05:33)
[2017-01-24] MEDS ORDERED: LIDOCAINE 1% INJ 10MG/ML (20 ML MDV) ONE (08:34)
[2017-01-24] MEDS ORDERED: IV FLUID CONTINUATION 1,000 ML IV ONE (08:34)
[2017-01-24] MEDS ORDERED: PROPOFOL 10 MG/ML 20 ML VIAL IV ONE (08:34)
--- NOTE | 2017-01-24 08:53 | P.PCN ---
Date of Procedure: 01/24/17 Procedure(s) Performed: BRIEF HISTORY: Patient is a 76-year-old, pleasant, white female, admitted to the hospital with severe symptomatic anemia and hemoglobin of 5.6 requiring 3 units of blood transition. She denies any active GI bleed. She had an EGD and colonoscopy in November 2014 that showed hiatal hernia with Silviano erosions and diverticulosis she had a small bowel capsule endoscopy a year ago that was unremarkable. Because of the recurrent anemia she is scheduled for a repeat upper endoscopy today PROCEDURE PERFORMED: Esophagogastroduodenoscopy biopsy . PREOPERATIVE DIAGNOSIS: Recurrent severe symptomatic anemia IV sedation per anesthesia. PROCEDURE: After informed consent was obtained, the patient was brought into the endoscopy unit. IV sedation was administered by Anesthesia under continuous monitoring. Initially the Olympus GIF-140 video endoscope was inserted into the mouth. Esophagus intubated without any difficulty. It was gradually advanced into the stomach and duodenum and carefully examined. The bulb and the second part of the duodenum appeared normal. The scope at this time was withdrawn to the stomach, adequately insufflated with air, and upon careful examination, mucosa of the antrum, had scattered erosions and biopsies were done from this area. The body, cardia and the fundus appeared normal. The scope was then withdrawn into the esophagus. Moderate to large size hiatal hernia noted but no obvious erosions identified.The GE junction was located at 33 cm from the incisors. The esophagus appeared normal. There were no erosions or ulcerations seen and the patient tolerated the procedure well. IMPRESSION: 1. Moderate large-size hiatal hernia but no obvious erosions identified 2. Mild antral gastritis. RECOMMENDATIONS: The findings of this examination were discussed with the patient as well as a family. She was advised to continue with iron supplements. She was also advised to follow with hematology for workup of recurrent anemia.
[2017-01-24] MEDS: PANTOPRAZOLE 40 MG/10 ML VIAL IV SCH (09:52)
[2017-01-24] MEDS: DISOPYRAMIDE 150 MG PO SCH ×2 (09:52→21:04)
[2017-01-24] MEDS: oxyCODONE-APAP 10-325MG 1 EACH TAB PO PRN ×2 (09:52→15:56)
[2017-01-24] MEDS: ALPRAZolam 0.5 MG TAB PO PRN ×2 (09:52→21:10)
[2017-01-24] MEDS: FLUTICASONE 50MCG/SPRAY NASAL 16GM EA NOSTRIL SCH (12:15)
[2017-01-24] MEDS: AZITHROMYCIN 500 MG TAB PO SCH (12:15)
[2017-01-24] MEDS: LORATADINE 10 MG TAB PO SCH (12:15)
[2017-01-24] MEDS: SODIUM CHLORIDE 0.9% 1,000 ML IV SCH (15:00)
[2017-01-24] MEDS: MENTHOL (NICE) LOZENGE MUCOUS MEM PRN ×2 (16:45→21:05)
--- NOTE | 2017-01-24 17:13 | PN ---
PROGRESS NOTE INTERVAL HISTORY: Patient continued to be hemodynamically stable. No major events reported by nursing staff. Patient received EGD this morning by Dr. Mccormack and currently denied chest pain, shortness of breath. No nausea, vomiting, abdominal pain, dizziness, lightheadedness, or blurry vision. Complaining of worsening sinus symptoms. PHYSICAL EXAMINATION: Vital signs reviewed and stable. LUNGS: Clear to auscultation bilaterally. HEART: S1, S2. ABDOMEN: Soft, no tenderness. Bowel sounds soft in all four quadrant. LOWER EXTREMITY: No edema. PSYCH: Alert and oriented x3. NECK: Positive for tenderness on the facial area consistent with sinus pain. Throat examination within normal limit. IMAGING AND LABS: Reviewed. ASSESSMENT AND PLAN: 1. Anemia status post transfusion with a chronic history of anemia. The patient received a EGD that showed stable hiatal hernia without any erosions or gastritis and stool was negative for acute blood. The patient understands that she requires more workup with hematology oncology for a bone marrow biopsy. Currently refusing that test and stated that she is almost 77-years old and would like to treat herself conservatively and transfuse as needed. I discussed that with the patient at the bedside in the presence of the nursing staff where she declined further treatment and stated that she would like to follow up with her primary care physician as outpatient. The patient will be monitored during this hospital stay. 2. Sinusitis. The patient requested antibiotics to be given as it has been going on for greater than 2 weeks with greenish phlegm this morning. I would like to start patient on Zithromax due to ALLERGY TO AUGMENTIN and I would like to consider discharging the patient on Zithromax at the time of the discharge with Zyrtec 10 mg daily and Flonase twice daily and monitor for improvement. 3. Discharge planning based on clinical progress. The patient requested to be discharged in the morning as she is not ready to go home today. MMODL / IJN: [id number] /
[2017-01-24] MEDS: DULoxetine HCL 60 MG CAPSULE.DR PO SCH (21:05)
[2017-01-24] MEDS: ATENOLOL 50 MG TAB PO SCH (21:05)
[2017-01-24] MEDS: ZOLPIDEM 10 MG TAB PO SCH (21:11)
[2017-01-25] MEDS: MENTHOL (NICE) LOZENGE MUCOUS MEM PRN ×3 (00:34→19:58)
[2017-01-25] MEDS: oxyCODONE-APAP 10-325MG 1 EACH TAB PO PRN ×4 (00:34→20:59)
[2017-01-25] MEDS: LEVOTHYROXINE 50 MCG TAB PO SCH (05:51)
[2017-01-25] MEDS: PANTOPRAZOLE 40 MG/10 ML VIAL IV SCH (07:53)
[2017-01-25] MEDS: LORATADINE 10 MG TAB PO SCH (07:53)
[2017-01-25] MEDS: DISOPYRAMIDE 150 MG PO SCH ×2 (07:53→20:59)
[2017-01-25] MEDS: AZITHROMYCIN 500 MG TAB PO SCH (07:53)
[2017-01-25 10:03] LABS: Anisocytosis Slight; Basophils # (A) 0.1 k/uL (0-0.2); Basophils % (A) 1 %; CHCM 28.3; Eosinophils # (A) 0.3 k/uL (0-0.7); Eosinophils % (A) 2 %; HCT 31.9 % (34.0-46.0); HDW 4.86; HGB 8.9 gm/dL (11.4-16.0); Hypochromasia Marked; Luc # (Auto) 0.31; Luc % (Auto) 3; Lymphocytes # (A) 1.7 k/uL (1.0-4.8); Lymphocytes % (A) 16 %; MCH 23.4 pg (25.0-35.0); MCHC 27.8 g/dL (31.0-37.0); MCV 83.9 fL (80.0-100.0); Mean Platelet Volume 7.3; Monocytes # (A) 0.6 k/uL (0-1.0); Monocytes % (A) 6 %; Neutrophils # (A) 7.5 k/uL (1.3-7.7); Neutrophils % (A) 72 %; Poikilocytosis Marked; WBC 10.4 k/uL (3.8-10.6); WBC (Perox) 10.67
[2017-01-25 10:25] LABS: ALT 25 U/L (9-52); AST 20 U/L (14-36); Alkaline Phosphatase 93 U/L (38-126); Anion Gap 13 mmol/L; Blood Urea Nitrogen 7 mg/dL (7-17); Calcium 8.9 mg/dL (8.4-10.2); Carbon Dioxide 19 mmol/L (22-30); Chloride 107 mmol/L (98-107); Glucose 94 mg/dL (74-99); Non-African American GFR(MDRD) >60 (>60 ml/min/1.73 sqM); Potassium 3.9 mmol/L (3.5-5.1); Sodium 139 mmol/L (137-145); Total Bilirubin 0.2 mg/dL (0.2-1.3); Total Protein 6.9 g/dL (6.3-8.2)
[2017-01-25] MEDS: FERROUS SULFATE 325 MG TAB PO SCH (11:05)
[2017-01-25] MEDS: SODIUM CHLORIDE 0.9% 1,000 ML IV SCH (11:10)
--- NOTE | 2017-01-25 14:39 | P.PN ---
Subjective Progress Note Date: 01/25/17 This is a 75-year-old female one of Dr. 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 Marino in office about a month ago and the last time she had her blood drawn was about 4 month ago, patient was hospitalized in the past for similar scenario with the hemoglobin dropping to the findings in 6 she underwent upper and lower endoscopy as well as capsule endoscopy without finding any source of bleeding at this time. Patient will be admitted to the hospital and to the intensive care unit as her blood pressure was admitted on the low side blood pressure was 90/50 her heart rate is stable at this time. However because of her hemoglobin and because of her antibodies patient would need to have blood transfusion after checking for the antibodies. ICU consultation Dr. Byrd as well as GI consultation Dr. Mccormack. Patient did have a negative guaiac stool I believe patient will need to be evaluated by hematology oncology at this time to rule out any myelodysplasia. 01/25: Patient was was followed by Dr. Byrd from pulmonary medicine. Patient was seen by Dr. Gregor Mccormack and underwent EGD with biopsy finding moderate large size hiatal hernia with no obvious erosions. Mild antral gastritis. Patient was advised to take iron supplements and hematology for workup. Patient declines workup with hematology and prefers to follow-up with her primary care physician. Patient is complaining of lightheadedness for which orthostatics will be checked. PT and OT request placed. Patient only ate 2 bites of eggs and one bite of ptosis morning. She states she is drinking 64 ounces of water each day. Patient does not wish to be discharged home today. We will plan to monitor overnight and discharged tomorrow. She again declines hematology consult. Objective - Vital Signs Vital signs: Vital Signs Temp 97.7 F 01/25/17 07:00 Pulse 62 01/25/17 07:00 Resp 18 01/25/17 07:00 BP 120/65 01/25/17 07:00 Pulse Ox 95 01/25/17 07:00 Intake & Output 01/24/17 01/25/17 01/25/17 18:59 06:59 18:59 Intake Total 180 Output Total 200 Balance 180 -200 Intake: IV 100 Intake, IV Titration 80 Amount Sodium Chloride 0.9% 1, 80 000 ml @ 10 mls/hr IV . Q24H KACY Rx#:[id number] Output: Urine 200 Other: # Voids 3 # Bowel Movements 0 - Exam General appearance: average body habitus, mild distress - EENT Eyes: anicteric sclerae, EOMI, PERRLA, no ptosis, no scleral icterus, normal appearance ENT: hard of hearing, NA/AT, normal oropharynx, no thrush, no tonsillar exudates Ears: bilateral: normal - Neck Neck: no lymphadenopathy, normal ROM, no rigidity, no stridor, no thyromegaly Carotids: bilateral: upstroke normal - Respiratory Respiratory: bilateral: diminished, negative: dullness, rales, rhonchi, wheezing , prolonged expiration, prolonged inspiration - Cardiovascular Rhythm: regular Heart sounds: normal: S1, S2 Abnormal Heart Sounds: systolic murmur, no S3 Gallop, no S4 Gallop - Gastrointestinal General gastrointestinal: normal bowel sounds, soft, no tenderness, no umbilical hernia, no ventral hernia - Integumentary Integumentary: normal, normal turgor - Neurologic Neurologic: CNII-XII intact - Musculoskeletal Musculoskeletal: generalized weakness, strength equal bilaterally - Psychiatric Psychiatric: A&O x's 3, appropriate affect, intact judgment & insight - Labs CBC & Chem 7: 01/25/17 09:38 01/25/17 09:38 Labs: Abnormal Lab Results - Last 24 Hours (Table) 01/22/17 01/22/17 Range/Units 12:42 12:42 Haptoglobin 235.0 H (31.2-198.0) mg/dL Iron 9 L (50-170) ug/dL Iron Saturation 2.49 L (12.00-45.00) Ferritin 4.9 L (10.0-291.0) ng/mL Assessment and Plan Plan: 1. Acute blood loss anemia symptomatic. Status post transfusion of 2 units packed RBCs and EGD noted above. Dr. Byrd consultation, Dr. You consultation, patient declined hematology oncology consultation for possible bone marrow biopsy. 2. Microcytic anemia. Patient did have an EGD colonoscopy and capsule endoscopy last year without delineation of the source of the bleeding. There is no evidence of any hematuria this time, even though its microcytic anemia patient would need to have bone marrow evaluation. 3. History of SVT. Continue patient on Norpace 100 mg orally twice every day and atenolol 100 mg orally once every day. 4. Hypertension and hypertensive cardiovascular disease. Continue atenolol 100 mg orally once every day. 5. Hyperlipidemia. Low-cholesterol diet. 6. Moderate COPD. stable. 7. GERD. Continue Protonix 40 mg IV push daily. 8. Rheumatoid arthritis. Stable. 9. Hypothyroidism. Continue Synthroid 50 g orally once every day. 10. Depression, recurrent. Continue Cymbalta to 60 mg orally once every day. 11. 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 12. DVT prophylaxis. Bilateral knee-high TIMOTEO hose. 13. GI prophylaxis. Continue Protonix 40 mg IV push daily. 14. Admitted to inpatient. Estimate a length of stay 2 midnights. 15. Patient is full code. Discharge plan: Return home on Wednesday Impression and plan of care have been directed as dictated by the signing physician. Domenica Reed nurse practitioner acting as scribe for signing physician.
[2017-01-25] MEDS: FLUTICASONE 50MCG/SPRAY NASAL 16GM EA NOSTRIL SCH (15:01)
[2017-01-25] MEDS: IPRATROPIUM-ALBUTEROL 3 ML NEB INHALATION PRN (15:10)
[2017-01-25] MEDS: ZOLPIDEM 10 MG TAB PO SCH (20:59)
[2017-01-25] MEDS: ALPRAZolam 0.5 MG TAB PO PRN (20:59)
[2017-01-25] MEDS: DULoxetine HCL 60 MG CAPSULE.DR PO SCH (20:59)
[2017-01-25] MEDS: ATENOLOL 50 MG TAB PO SCH (20:59)
[2017-01-25 22:12] VITALS: RESP 16
[2017-01-26] MEDS: oxyCODONE-APAP 10-325MG 1 EACH TAB PO PRN ×2 (03:35→08:47)
[2017-01-26] MEDS: MENTHOL (NICE) LOZENGE MUCOUS MEM PRN (03:43)
[2017-01-26] MEDS: LEVOTHYROXINE 50 MCG TAB PO SCH (06:17)
[2017-01-26] MEDS: IPRATROPIUM-ALBUTEROL 3 ML NEB INHALATION PRN (07:06)
[2017-01-26] MEDS: DISOPYRAMIDE 150 MG PO SCH (07:30)
[2017-01-26] MEDS: AZITHROMYCIN 500 MG TAB PO SCH (07:30)
[2017-01-26] MEDS: LORATADINE 10 MG TAB PO SCH (07:30)
[2017-01-26] MEDS: FERROUS SULFATE 325 MG TAB PO SCH (07:30)
[2017-01-26] MEDS ORDERED: PANTOPRAZOLE 40 MG TABLET PO SCH (07:30)
[2017-01-26 08:10] VITALS: BP 124/68; PULSE 56; TEMP 98.4
[2017-01-26 08:55] LABS: Anisocytosis Slight; Basophils % (A) 1 %; CH 23.9; CHCM 28.8; Eosinophils # (A) 0.2 k/uL (0-0.7); Eosinophils % (A) 3 %; HCT 29.1 % (34.0-46.0); HDW 5.01; HGB 8.3 gm/dL (11.4-16.0); Hypochromasia Marked; Luc % (Auto) 3; Lymphocytes # (A) 1.5 k/uL (1.0-4.8); Lymphocytes % (A) 23 %; MCH 23.4 pg (25.0-35.0); MCHC 28.4 g/dL (31.0-37.0); MCV 82.2 fL (80.0-100.0); Mean Platelet Volume 6.5; Microcytosis Slight; Monocytes # (A) 0.4 k/uL (0-1.0); Monocytes % (A) 7 %; Neutrophils # (A) 4.3 k/uL (1.3-7.7); Neutrophils % (A) 64 %; Poikilocytosis Marked; RBC 3.54 m/uL (3.80-5.40); RDW 19.5 % (11.5-15.5); WBC 6.6 k/uL (3.8-10.6); WBC (Perox) 6.71
--- NOTE | 2017-01-26 10:46 | ECHOF ---
Referral Reason:LVF MEASUREMENTS -------- HEIGHT: 167.6 cm WEIGHT: 96.6 kg BP: 120/65 RVIDd: 3.4 cm (< 3.3) IVSd: 1.2 cm (0.6 - 1.1) LVIDd: 3.5 cm (3.9 - 5.3) LVPWd: 1.3 cm (0.6 - 1.1) IVSs: 1.3 cm LVIDs: 2.4 cm LVPWs: 1.5 cm LA Diam: 3.6 cm (2.7 - 3.8) LAESV Index (A-L): 31.22 ml/m Ao Diam: 3.3 cm (2.0 - 3.7) AV Cusp: 1.2 cm (1.5 - 2.6) MV EXCURSION: 11.453 mm (> 18.000) MV EF SLOPE: 32 mm/s (70 - 150) EPSS: 0.5 cm MV E Jem: 1.67 m/s MV DecT: 241 ms MV A Jem: 1.42 m/s MV E/A Ratio: 1.18 AV maxP.34 mmHg AV meanP.95 mmHg RAP: 5.00 mmHg RVSP: 33.39 mmHg FINDINGS -------- Sinus rhythm. This was a technically adequate study. The left ventricular size is normal. There is mild concentric left ventricular hypertrophy. Overall left ventricular systolic function is normal with, an EF between 60 - 65 %. The right ventricle is mildly enlarged. LA is midly dilated 29-33ml/m2. The right atrium is normal in size. There is moderate aortic valve sclerosis. There is mild aortic stenosis present. Peak/mean gradient across the Aortic Valve is 34.34mmHg / 17.95mmHg. The mitral valve leaflets are mildly thickened. Moderate mitral annular calcification present. Mild mitral regurgitation is present. The peak and mean MV gradients are 17.01mmHg 4.30mmHg as measured by doppler. Mild mitral stenosis. Mild tricuspid regurgitation present. Right ventricular systolic pressure is normal at < 35 mmHg. The pulmonic valve was not well visualized. The aortic root size is normal. The inferior vena cava is mildly dilated. There is no pericardial effusion. CONCLUSIONS -------- 1. Sinus rhythm. 2. There is mild aortic stenosis present. 3. Peak/mean gradient across the Aortic Valve is 34.34mmHg / 17.95mmHg. 4. The mitral valve leaflets are mildly thickened. 5. Moderate mitral annular calcification present. 6. Mild mitral regurgitation is present. 7. The peak and mean MV gradients are 17.01mmHg 4.30mmHg as measured by doppler. 8. Mild mitral stenosis. 9. Mild tricuspid regurgitation present. 10. Right ventricular systolic pressure is normal at < 35 mmHg. 11. The pulmonic valve was not well visualized. 12. This was a technically adequate study. 13. The aortic root size is normal. 14. The inferior vena cava is mildly dilated. 15. There is no pericardial effusion. 16. The left ventricular size is normal. 17. There is mild concentric left ventricular hypertrophy. 18. Overall left ventricular systolic function is normal with, an EF between 60 - 65 %. 19. The right ventricle is mildly enlarged. 20. LA is midly dilated 29-33ml/m2. 21. The right atrium is normal in size. 22. There is moderate aortic valve sclerosis. [place] [facility] CONSULTANT: Leslie Cortes RDCS
--- NOTE | 2017-01-26 11:21 | P.DS ---
Providers Date of admission: 01/22/17 14:35 Expected date of discharge: 01/26/17 Attending physician: Shilrey Weinberg Consults: 01/22/17 14:34 Consult Physician Urgent Consulting Provider: Sameera Mccormack Consult Reason/Comments: anemia Do you want consulting provider notified?: Yes 01/22/17 14:35 Consult Physician Stat Consulting Provider: Adonis Byrd Consult Reason/Comments: critical care Do you want consulting provider notified?: Already Contacted Primary care physician: Franklyn Marino [place] [facility] Course: This is a 75-year-old female one of Dr. 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 Marino in office about a month ago and the last time she had her blood drawn was about 4 month ago, patient was hospitalized in the past for similar scenario with the hemoglobin dropping to the findings in 6 she underwent upper and lower endoscopy as well as capsule endoscopy without finding any source of bleeding at this time. Patient will be admitted to the hospital and to the intensive care unit as her blood pressure was admitted on the low side blood pressure was 90/50 her heart rate is stable at this time. However because of her hemoglobin and because of her antibodies patient would need to have blood transfusion after checking for the antibodies. ICU consultation Dr. Byrd as well as GI consultation Dr. Mccormack. Patient did have a negative guaiac stool I believe patient will need to be evaluated by hematology oncology at this time to rule out any myelodysplasia. 01/25: Patient was was followed by Dr. Byrd from pulmonary medicine. Patient was seen by Dr. Gregor Mccormack and underwent EGD with biopsy finding moderate large size hiatal hernia with no obvious erosions. Mild antral gastritis. Patient was advised to take iron supplements and hematology for workup. Patient declines workup with hematology and prefers to follow-up with her primary care physician. Patient is complaining of lightheadedness for which orthostatics will be checked. PT and OT request placed. Patient only ate 2 bites of eggs and one bite of ptosis morning. She states she is drinking 64 ounces of water each day. Patient does not wish to be discharged home today. We will plan to monitor overnight and discharged tomorrow. She again declines hematology consult. 01/26: PT has evaluated the patient with recommendations for home with home care but patient declined need for home care. Breathing status is stable today. She will be discharged home today in stable condition. Discharge diagnoses: 1. Acute blood loss anemia symptomatic. Status post transfusion of 2 units packed RBCs and EGD noted above. 2. Microcytic anemia. Patient did have an EGD colonoscopy and capsule endoscopy last year without delineation of the source of the bleeding. There is no evidence of any hematuria this time, even though its microcytic anemia patient would need to have bone marrow evaluation. 3. History of SVT. 4. Hypertension and hypertensive cardiovascular disease. 5. Hyperlipidemia. 6. Moderate COPD. stable. 7. GERD. 8. Rheumatoid arthritis. Stable. 9. Hypothyroidism. 10. Depression, recurrent. 11. 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 Discharge plan: Return home Impression and plan of care have been directed as dictated by the signing physician. Domenica Reed nurse practitioner acting as scribe for signing physician Patient Condition at Discharge: Good Plan - Discharge Summary New Discharge Prescriptions: New Ferrous Sulfate [Iron (65 MG Elemental)] 325 mg PO Q48H tab Fluticasone Nasal [place] [Flonase Nasal [place]] 1 spray EA NOSTRIL DAILY@1600 spray Loratadine [Claritin] 10 mg PO DAILY tab Continue Levothyroxine Sodium [Synthroid] 50 mcg PO QAM Aspirin 81 mg PO QAM Furosemide [Lasix] 40 mg PO QAM Atenolol 100 mg PO HS Baclofen 10 mg PO TID PRN PRN Reason: Muscle Spasm ALPRAZolam [Xanax] 2 mg PO Q8H PRN PRN Reason: Anxiety DULoxetine HCL [Cymbalta] 60 mg PO DAILY oxyCODONE-APAP 10-325MG [Percocet 10-325 mg] 1 tab PO Q6HR PRN PRN Reason: Pain Esomeprazole Magnesium [NexIUM 24Hr] 20 mg PO DAILY Disopyramide Phosphate 150 mg PO BID Discharge Medication List Levothyroxine Sodium [Synthroid] 50 mcg PO QAM 03/03/14 [History] Aspirin 81 mg PO QAM 07/29/14 [History] Atenolol 100 mg PO HS 09/25/15 [History] Furosemide [Lasix] 40 mg PO QAM 09/25/15 [History] Baclofen 10 mg PO TID PRN 01/02/16 [History] ALPRAZolam [Xanax] 2 mg PO Q8H PRN 07/17/16 [History] DULoxetine HCL [Cymbalta] 60 mg PO DAILY 07/17/16 [History] oxyCODONE-APAP 10-325MG [Percocet 10-325 mg] 1 tab PO Q6HR PRN 07/17/16 [History ] Disopyramide Phosphate 150 mg PO BID 01/22/17 [History] Esomeprazole Magnesium [NexIUM 24Hr] 20 mg PO DAILY 01/22/17 [History] Ferrous Sulfate [Iron (65 MG Elemental)] 325 mg PO Q48H tab 01/26/17 [Rx] Fluticasone Nasal [place] [Flonase Nasal [place]] 1 spray EA NOSTRIL DAILY@1600 spray 01/26/17 [Rx] Loratadine [Claritin] 10 mg PO DAILY tab 01/26/17 [Rx] Follow up Appointment(s)/Referral(s): Franklyn Marino DO [Primary Care Provider] - 1 Week ([facility] will call with appointment time) Patient Instructions/Handouts: How to Stop Smoking (DC), Anemia (DC) Discharge Disposition: HOME SELF-CARE
== END 2017-01-26 13:34 | disposition home or self-care (01) | DRG 812 ==
LOC: EC 11:48 → 6ICU 14:35 → 4MS4W 01-23 10:36
PROVIDERS: ADMIT Internal Medicine; ATTEND Internal Medicine
PROC: 0DB68ZX Excision of Stomach, Via Natural or Artificial Opening Endoscopic, Diagnostic (ICD-10-PCS; principal; 2017-01-24 08:00)
DX: D62 Acute posthemorrhagic anemia (principal); Z94.89 Other transplanted organ and tissue status; I11.9 Hypertensive heart disease without heart failure; J44.9 Chronic obstructive pulmonary disease, unspecified; I48.92 Unspecified atrial flutter; I47.1 Supraventricular tachycardia; I48.91 Unspecified atrial fibrillation; I34.1 Nonrheumatic mitral (valve) prolapse; Z87.19 Personal history of other diseases of the digestive system; K29.60 Other gastritis without bleeding; K44.9 Diaphragmatic hernia without obstruction or gangrene; E03.9 Hypothyroidism, unspecified; E78.5 Hyperlipidemia, unspecified; F17.210 Nicotine dependence, cigarettes, uncomplicated; F32.9 Major depressive disorder, single episode, unspecified; F41.9 Anxiety disorder, unspecified; I44.0 Atrioventricular block, first degree; K21.9 Gastro-esophageal reflux disease without esophagitis; K57.30 Diverticulosis of large intestine without perforation or abscess without bleeding; M06.9 Rheumatoid arthritis, unspecified; M19.90 Unspecified osteoarthritis, unspecified site; Z79.82 Long term (current) use of aspirin; Z80.1 Family history of malignant neoplasm of trachea, bronchus and lung; Z82.5 Family history of asthma and other chronic lower respiratory diseases; Z96.611 Presence of right artificial shoulder joint; Z96.643 Presence of artificial hip joint, bilateral; Z96.653 Presence of artificial knee joint, bilateral; Z88.0 Allergy status to penicillin; Z88.2 Allergy status to sulfonamides; Z88.7 Allergy status to serum and vaccine; Z88.8 Allergy status to other drugs, medicaments and biological substances
CPT/HCPCS: 36415; 43239; 71020; 80053; 82272; 82550; 82553; 82728; 82747; 83010; 83540; 83550; 83615; 83735; 83880; 84484; 85025; 85045; 85379; 85610; 85730; 86850; 86870; 86880; 86900; 86901; 86902; 86920; 88305; 88342; 93005; 93306; 94640; 94760; 96361; 96374; 99291

== ENCOUNTER 2017-10-28 16:47 | Inpatient (IN) | payer MEDICARE ==
--- NOTE | 2017-10-28 17:54 | ED ---
General Adult HPI - General Chief complaint: Abdominal Pain Stated complaint: Abd Pain Time Seen by Provider: 10/28/17 16:49 Source: patient, EMS Mode of arrival: EMS Limitations: no limitations - History of Present Illness Initial comments: Kim is a 77-year-old female who presents to the emergency department today for evaluation of abdominal pain and diarrhea. She reports that she developed crampy abdominal pain and diarrhea a number of weeks ago, she was evaluated by her primary care physician who prescribed her Cipro and Flagyl for presumed colitis. No imaging or labs were completed that time. She reports she had mild improvement with her first dose of antibiotics, she was prescribed a refill which she did choose to get, she recently completed the second course of antibiotics. Patient reports that since starting these medications she has had less frequent diarrhea and more solid stools however she continues to experiencing a gurgling in her stomach and she feels that all foods taste bad due to taking antibiotics. Patient does have a history of C. diff colitis in the past, she reports that she had a be transferred to an outside tertiary care center for treatment. She reports that that has resolved. She reports that prior to this event she did not have any diarrhea or abdominal pain. Patient reports that she had pill endoscopy approximately a urinary half ago with findings of mild bleeding but was advised that due to her advanced age is no indication for surgery. Patient states that she is chronically anemic but doesn't require blood transfusions. - Related Data Home Medications Medication Instructions Recorded Confirmed Levothyroxine Sodium [Synthroid] 50 mcg PO QAM 03/03/14 10/28/17 Aspirin 81 mg PO QAM 07/29/14 10/28/17 Atenolol 100 mg PO HS 09/25/15 10/28/17 Furosemide [Lasix] 40 mg PO QAM 09/25/15 10/28/17 ALPRAZolam [Xanax] 2 mg PO Q8H PRN 07/17/16 10/28/17 DULoxetine HCL [Cymbalta] 60 mg PO DAILY 07/17/16 10/28/17 Citalopram Hydrobromide [CeleXA] 40 mg PO DAILY 10/28/17 10/28/17 Disopyramide Phosphate [Norpace Cr] 150 mg PO BID 10/28/17 10/28/17 Multivit-Min/Iron/Folic/Lutein 1 tab PO DAILY 10/28/17 10/28/17 [Centrum Silver Women Tablet] Tofacitinib Citrate [Xeljanz] 5 mg PO DAILY 10/28/17 10/28/17 Zolpidem [Ambien] 10 mg PO HS PRN 10/28/17 10/28/17 Previous Rx's Medication Instructions Recorded Loratadine [Claritin] 10 mg PO DAILY tab 01/26/17 Allergies Allergy/AdvReac Type Severity Reaction Status Date / Time adhesive tape Allergy Rash/Hives Verified 10/28/17 17:09 Influenza Virus Vaccines Allergy "MAKES HER Verified 10/28/17 17:09 FEEL SICK" Sulfa (Sulfonamide Allergy Rash/Hives Verified 10/28/17 17:09 Antibiotics) amoxicillin trihydrate AdvReac Diarrhea Verified 10/28/17 17:09 [From Augmentin] ciprofloxacin [From Cipro] AdvReac Unknown Verified 10/28/17 17:09 metronidazole [From Flagyl] AdvReac Unknown Verified 10/28/17 17:09 potassium clavulanate AdvReac Diarrhea Verified 10/28/17 17:09 [From Augmentin] quinidine AdvReac BLOOD CLOTS Verified 10/28/17 17:09 Review of Systems ROS Statement: Those systems with pertinent positive or pertinent negative responses have been documented in the HPI. ROS Other: All systems not noted in ROS Statement are negative. Constitutional: Denies: fever Respiratory: Denies: cough, dyspnea Cardiovascular: Denies: chest pain, palpitations Endocrine: Reports: fatigue Gastrointestinal: Reports: abdominal pain, nausea, diarrhea Genitourinary: Denies: urgency, dysuria Skin: Denies: rash, lesions Neurological: Denies: weakness Psychiatric: Reports: anxiety Hematological/Lymphatic: Denies: easy bleeding, easy bruising Past Medical History Past Medical History: Atrial Fibrillation, Atrial Flutter, GERD/Reflux, Hyperlipidemia, Hypertension, Mitral Valve Prolapse (MVP), Rheumatoid Arthritis (RA), Thyroid Disorder Additional Past Medical History / Comment(s): OTHER HX: 03/06/14, 03/30/14, , 07/29/14 with CDIFF colitis, HYPOTHYROID, MVP, urinary incontinence, PROLAPSED MITRAL VALVE- NO PROBLEMS FOR 30 YRS. History of Any Multi-Drug Resistant Organisms: None Reported Date of last positivie culture/infection: UNK MDRO Source:: FECAL Past Surgical History: Adenoidectomy, Cholecystectomy, Hysterectomy, Joint Replacement, Orthopedic Surgery, Tonsillectomy Additional Past Surgical History / Comment(s): 02/18/16 total R hip arthroplasty. Other surgical HX: BILATERAL KNEE REPLACEMENT (2003-RIGHT & 2005 - LEFT); LOWER LUMBAR LAMINECTOMYL4-L5 (2007); LEFT HIP REPLACEMENT (2012) ; RIGHT SHOULDER REPLACEMENT (2008), left total knee arthroplasty revision. Bilateral cataracts with lens implants. FECALCAL TRASPLANT TX FOR C-DIFF three times. Past Anesthesia/Blood Transfusion Reactions: No Reported Reaction Additional Past Anesthesia/Blood Transfusion Reaction / Comment(s): blood transfusion in past no reactions Past Psychological History: Anxiety, Depression Smoking Status: Current every day smoker Past Alcohol Use History: None Reported Past Drug Use History: None Reported - Past Family History Mother Family Medical History: Cancer Father Family Medical History: CVA/TIA Sister(s) Family Medical History: Unable to Obtain Daughter(s) Family Medical History: COPD, Myocardial Infarction ([place]) Additional Family Medical History / Comment(s): Mother at age 60 yrs of emphysema/lung CA Son(s) Family Medical History: Myocardial Infarction ([place]) Additional Family Medical History / Comment(s): Father at age 74yrs with "CVA of his larynx" General Exam Limitations: no limitations General appearance: alert, in no apparent distress Head exam: Present: atraumatic, normocephalic Eye exam: Present: normal appearance, PERRL ENT exam: Present: normal exam Neck exam: Present: normal inspection Respiratory exam: Present: normal lung sounds bilaterally. Absent: respiratory distress Cardiovascular Exam: Present: regular rate GI/Abdominal exam: Present: soft, tenderness, normal bowel sounds. Absent: distended, guarding, rebound, rigid Rectal exam: Present: deferred Extremities exam: Present: full ROM. Absent: pedal edema Neurological exam: Present: alert, oriented X3 Psychiatric exam: Present: normal mood Skin exam: Present: warm, dry, pallor Course Vital Signs 10/28/17 10/28/17 16:56 21:21 Temperature 96.8 F L 98.3 F Pulse Rate 57 L 63 Respiratory 20 16 Rate Blood Pressure 127/60 138/64 O2 Sat by Pulse 97 96 Oximetry - Reevaluation(s) Reevaluation #1: Patient was advised on CT findings. Expresses relief that there is no acute abnormality but expresses concern because every time she eats she has to have a bowel movement immediately afterwards. States that she feels that this is making her weak. 10/28/17 21:15 Medical Decision Making - Medical Decision Making The patient was seen and evaluated, history was obtained from the patient She with a history of C. diff colitis in the past, recent Cipro Flagyl for abdominal pain and diarrhea presumed to be colitis. Asians diarrhea is improving however she does report that any time she eats she has a bowel movement, and addition she feels that taking antibiotics this change the taste of foods for her patient states that this time she is just fed up and wanted further evaluation. Patient IV access had been attempted 2 times by EMS. Patient declined an IV but did consent to having a professional from laboratory come to draw her blood. Labs consistent with chronic anemia, mild elevation of BUN consistent with prerenal dehydration Because the patient refused IV access, CT without contrast was performed CT with no acute findings UA with UTI, culture and rocephin ordered Patient does not feel comfortable being discharged home due to her advanced age , generalized weakness and feeling of fatigue and chronic diarrhea. Patient care discussed with Dr Snell who is familiar with the patient and accepts the patient to his service - Lab Data Result diagrams: 10/28/17 19:40 10/28/17 19:40 Lab Results 10/28/17 10/28/17 10/28/17 Range/Units 19:40 19:40 20:55 WBC 6.4 (3.8-10.6) k/uL RBC 3.67 L (3.80-5.40) m/uL Hgb 10.2 L (11.4-16.0) gm/dL Hct 32.6 L (34.0-46.0) % MCV 88.8 (80.0-100.0) fL MCH 27.7 (25.0-35.0) pg MCHC 31.2 (31.0-37.0) g/dL RDW 14.1 (11.5-15.5) % Plt Count 230 (150-450) k/uL Neutrophils % 67 % Lymphocytes % 23 % Monocytes % 6 % Eosinophils % 1 % Basophils % 0 % Neutrophils # 4.2 (1.3-7.7) k/uL Lymphocytes # 1.5 (1.0-4.8) k/uL Monocytes # 0.4 (0-1.0) k/uL Eosinophils # 0.1 (0-0.7) k/uL Basophils # 0.0 (0-0.2) k/uL Hypochromasia Moderate Sodium 140 (137-145) mmol/L Potassium 3.8 (3.5-5.1) mmol/L Chloride 109 H (98-107) mmol/L Carbon Dioxide 24 (22-30) mmol/L Anion Gap 7 mmol/L BUN 29 H (7-17) mg/dL Creatinine 0.60 (0.52-1.04) mg/dL Est GFR (CKD-EPI)AfAm >90 (>60 ml/min/1.73 sqM) Est GFR (CKD-EPI)NonAf 89 (>60 ml/min/1.73 sqM) Glucose 84 (74-99) mg/dL Calcium 8.4 (8.4-10.2) mg/dL Total Bilirubin 0.3 (0.2-1.3) mg/dL AST 32 (14-36) U/L ALT 25 (9-52) U/L Alkaline Phosphatase 51 (38-126) U/L Total Protein 5.8 L (6.3-8.2) g/dL Albumin 3.3 L (3.5-5.0) g/dL Urine Color Yellow Urine Appearance Cloudy H (Clear) Urine pH 6.0 (5.0-8.0) Ur Specific Brandon 1.015 (1.001-1.035) Urine Protein Negative (Negative) Urine Glucose (UA) Negative (Negative) Urine Ketones Negative (Negative) Urine Blood Negative (Negative) Urine Nitrite Positive H (Negative) Urine Bilirubin Negative (Negative) Urine Urobilinogen <2.0 (<2.0) mg/dL Ur Leukocyte Esterase Large H (Negative) Urine WBC >182 H (0-5) /hpf Urine WBC Clumps Occasional H (None) /hpf Ur Squamous Epith Cells 7 H (0-4) /hpf Urine Bacteria Many H (None) /hpf Urine Mucus Occasional H (None) /hpf Disposition Clinical Impression: UTI (urinary tract infection), Generalized weakness Disposition: ADMITTED IP TO THIS [facility] Condition: Good Referrals: Franklyn Marino DO [Primary Care Provider] - 1-2 days Decision Time: 21:27
[2017-10-28 20:01] LABS: ALT 25 U/L (9-52); AST 32 U/L (14-36); Albumin 3.3 g/dL (3.5-5.0); Alkaline Phosphatase 51 U/L (38-126); Anion Gap 7 mmol/L; Blood Urea Nitrogen 29 mg/dL (7-17); Calcium 8.4 mg/dL (8.4-10.2); Carbon Dioxide 24 mmol/L (22-30); Chloride 109 mmol/L (98-107); Glucose 84 mg/dL (74-99); Potassium 3.8 mmol/L (3.5-5.1); Sodium 140 mmol/L (137-145); Total Bilirubin 0.3 mg/dL (0.2-1.3); Total Protein 5.8 g/dL (6.3-8.2)
[2017-10-28 20:14] LABS: Basophils % (A) 0 %; Eosinophils # (A) 0.1 k/uL (0-0.7); Eosinophils % (A) 1 %; HCT 32.6 % (34.0-46.0); HGB 10.2 gm/dL (11.4-16.0); Hypochromasia Moderate; Lymphocytes # (A) 1.5 k/uL (1.0-4.8); Lymphocytes % (A) 23 %; MCH 27.7 pg (25.0-35.0); MCHC 31.2 g/dL (31.0-37.0); MCV 88.8 fL (80.0-100.0); Mean Platelet Volume 8.5; Monocytes # (A) 0.4 k/uL (0-1.0); Monocytes % (A) 6 %; Neutrophils # (A) 4.2 k/uL (1.3-7.7); Neutrophils % (A) 67 %; Platelet Count 230 k/uL (150-450); RBC 3.67 m/uL (3.80-5.40); RDW 14.1 % (11.5-15.5); WBC 6.4 k/uL (3.8-10.6)
--- NOTE | 2017-10-28 20:55 | CT ---
EXAMINATION TYPE: CT abdomen pelvis wo con DATE OF EXAM: 10/28/2017 COMPARISON: 07/02/2014 HISTORY: ABDOMINAL PAIN CT DLP: 803 mGycm Automated exposure control for dose reduction was used. TECHNIQUE: Helical acquisition of images was performed from the lung bases through the pelvis. FINDINGS: There is moderate hiatal hernia. Lung bases are clear of consolidation. Liver and spleen appear megan l. Bile ducts are not dilated. There is no pancreatic mass. There are clips from cholecystectomy. The re is no adrenal mass. Kidneys have normal size. Ureters are not dilated. There is no hydronephrosis. There is no retroperitoneal adenopathy. There is metal artifact from multilevel posterior fusion gallito suraj. There is no intestinal wall thickening. There are no dilated loops. Bladder distends smoothly. There is bilateral hip prosthesis. There is no evidence of a pelvic mass. Appendix is not seen. There is no sign of appendicitis. IMPRESSION: HIATAL HERNIA. NEGATIVE CT SCAN OF THE ABDOMEN AND PELVIS. THERE IS CLEARING OF THE MILD INFLAMMATORY CHANGES AROUND THE SIGMOID COLON COMPARED TO OLD EXAM.
[2017-10-28 21:18] LABS: Appearance,Urine Cloudy (Clear); Bacteria,Urine Many /hpf; Bilirubin,Urine Negative (Negative); Blood,Urine Negative (Negative); Color,Urine Yellow; Glucose,Urine (UA) Negative (Negative); Ketones,Urine Negative (Negative); Leukocyte Esterase,Urine Large (Negative); Mucus,Urine Occasional /hpf; Nitrite,Urine Positive (Negative); Protein,Urine Negative (Negative); Specific Gravity,Urine 1.015 (1.001-1.035); Squamous Epithelial Cell,Urine 7 /hpf (0-4); Urobilinogen,Urine <2.0 mg/dL (<2.0); WBC,Urine >182 /hpf (0-5)
[2017-10-28] MEDS ORDERED: NALOXONE 0.4 MG/ML 1 ML VIAL IV PRN (21:28)
[2017-10-28] MEDS ORDERED: cefTRIAXone IN SWFI 1,000 MG/10 ML SYRINGE IVP STA (21:46)
[2017-10-28 22:08] VITALS: BMI 31.4
[2017-10-28] MEDS: SODIUM CHLORIDE 0.9% 1,000 ML IV SCH (22:08)
[2017-10-29] MEDS ORDERED: ALPRAZolam 0.5 MG TAB ONE (01:00)
[2017-10-29] MEDS ORDERED: DISOPYRAMIDE 150 MG ONE (01:00)
[2017-10-29] MEDS ORDERED: ZOLPIDEM 10 MG TAB ONE (01:00)
[2017-10-29] MEDS ORDERED: traMADol 50 MG TAB ONE (01:00)
[2017-10-29] MEDS ORDERED: ATENOLOL 50 MG TAB ONE (01:00)
[2017-10-29] MEDS: DISOPYRAMIDE 150 MG PO SCH ×3 (05:12→21:05)
[2017-10-29] MEDS: ATENOLOL 50 MG TAB PO SCH ×2 (05:12→21:05)
[2017-10-29 05:16] VITALS: RESP 16
[2017-10-29] MEDS: LEVOTHYROXINE 50 MCG TAB PO SCH (05:42)
[2017-10-29] MEDS: traMADol 50 MG TAB PO PRN ×2 (08:06→21:06)
[2017-10-29] MEDS: DULoxetine HCL 60 MG CAPSULE.DR PO SCH (08:07)
[2017-10-29] MEDS: ASPIRIN 81 MG PO SCH (08:07)
[2017-10-29] MEDS: FUROSEMIDE 40 MG TAB PO SCH (08:07)
[2017-10-29] MEDS: CITALOPRAM HYDROBROMIDE 20 MG TAB PO SCH (08:07)
[2017-10-29] MEDS: VIT A,C & E-LUTEIN-MINERALS 1 EACH TAB PO SCH (08:07)
[2017-10-29] MEDS: LORATADINE 10 MG TAB PO SCH (08:07)
[2017-10-29] MEDS: Tofacitinib Citrate [Xeljanz] 5 MG PO SCH (08:08)
[2017-10-29] MEDS: SODIUM CHLORIDE 0.9% 1,000 ML IV SCH (12:40)
[2017-10-29] MEDS: PANTOPRAZOLE 40 MG TABLET PO SCH (12:40)
--- NOTE | 2017-10-29 13:09 | P.HPIM ---
History of Present Illness H&P Date: 10/29/17 Chief Complaint: Abdominal pain and diarrhea This is a 77-year-old female one of Dr. 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 Patient's last hospitalization was in January 2017 at which time she was treated for acute blood loss anemia with EGD finding only mild antral gastritis. Patient gives history that she has been under treatment with Dr. Marino for colitis and at that time she only had abdominal pain but no diarrhea. Patient was started on Cipro and Flagyl and completed a two-week course. She states she has had diarrhea since she's been started and also complaining of increased weakness which continued to get worse. Her abdomen is sore but she denies any significant pain. She then picked up another course of ciprofloxacin and Flagyl but 2 days ago she stopped taking it. She states she has been drinking 64 ounces of water. She denies any vomiting. She is only able to eat a small amount of food at a time. She came into [facility] emergency center for evaluation. Her vital signs were stable. Hemoglobin 10.2, white count was 6.4, creatinine 0.6. She underwent a CAT scan of the abdomen and pelvis that showed no acute findings. Her urinalysis was cloudy, leukoesterase large, WBC is greater than 182, WBC clumps occasional, squamous cells 7. Patient was started on ceftriaxone for urinary tract infection [facility] Patient denies having any ear pain or burning with urination. He states this morning she was able to eat some scrambled eggs and afterwards she got up to the bathroom to urinate and it was the first time that she did not have a stool at the same time. Subsequently, consult placed with Dr. Ortiz from infectious disease. Patient has had ongoing problems with diarrhea with concern for C. difficile colitis. Review of Systems All systems: negative Constitutional: Reports fatigue, Reports lethargy, Reports malaise, Reports poor appetite, Reports weakness, Denies chills, Denies fever Eyes: denies blurred vision, denies pain Ears, nose, mouth and throat: Denies dental pain, Denies headache, Denies sore throat Cardiovascular: Denies chest pain, Denies decreased exercise tolerance, Denies dyspnea on exertion, Denies edema, Denies leg edema, Denies lightheadedness, Denies shortness of breath, Denies syncope Respiratory: Denies cough, Denies cough with sputum, Denies dyspnea, Denies excessive sputum, Denies hemoptysis, Denies home oxygen, Denies wheezing Gastrointestinal: Reports abdominal pain, Reports diarrhea, Reports loss of appetite, Denies nausea, Denies vomiting Genitourinary: Denies dysuria, Denies hematuria Musculoskeletal: Denies myalgias Integumentary: Denies pruritus, Denies rash Neurological: Denies numbness, Denies weakness Psychiatric: Denies anxiety, Denies depression Endocrine: Denies fatigue, Denies weight change Past Medical History Past Medical History: Atrial Fibrillation, Atrial Flutter, GERD/Reflux, Hyperlipidemia, Hypertension, Mitral Valve Prolapse (MVP), Rheumatoid Arthritis (RA), Thyroid Disorder Additional Past Medical History / Comment(s): OTHER HX: 03/06/14, 03/30/14, , 07/29/14 with CDIFF colitis, HYPOTHYROID, MVP, urinary incontinence, PROLAPSED MITRAL VALVE- NO PROBLEMS FOR 30 YRS. History of Any Multi-Drug Resistant Organisms: None Reported Date of last positivie culture/infection: UNK MDRO Source:: FECAL Past Surgical History: Adenoidectomy, Cholecystectomy, Hysterectomy, Joint Replacement, Orthopedic Surgery, Tonsillectomy Additional Past Surgical History / Comment(s): 02/18/16 total R hip arthroplasty. Other surgical HX: BILATERAL KNEE REPLACEMENT (2003-RIGHT & 2005 - LEFT); LOWER LUMBAR LAMINECTOMYL4-L5 (2007); LEFT HIP REPLACEMENT (2012) ; RIGHT SHOULDER REPLACEMENT (2008), left total knee arthroplasty revision. Bilateral cataracts with lens implants. FECALCAL TRASPLANT TX FOR C-DIFF three times. Past Anesthesia/Blood Transfusion Reactions: No Reported Reaction Additional Past Anesthesia/Blood Transfusion Reaction / Comment(s): blood transfusion in past no reactions Past Psychological History: Anxiety, Depression Additional Psychological History / Comment(s): pt lives in own home w/ a nephew , SHE IS A . CARES FOR HERSELF BUT DOES HAVE A CLEANING LADY ONCE A MONTH. STILL DRIVES, has an electric scooter/w/c. Smoking Status: Current every day smoker Past Alcohol Use History: None Reported Additional Past Alcohol Use History / Comment(s): has smoked since 1954- 5 cig per day and stated she has no intention of quitting No alcohol use or abuse. No street drug use marijuana or medical marijuana use. Past Drug Use History: None Reported - Past Family History Mother Family Medical History: Cancer Additional Family Medical History / Comment(s): Mother at age 60 with history of emphysema and lung cancer. Father Family Medical History: CVA/TIA Additional Family Medical History / Comment(s): Father at age 74 with problems with his larynx. Sister(s) Family Medical History: Unable to Obtain Daughter(s) Family Medical History: COPD, Myocardial Infarction ([place]) Son(s) Family Medical History: Myocardial Infarction ([place]) Medications and Allergies Home Medications Medication Instructions Recorded Confirmed Type Levothyroxine Sodium [Synthroid] 50 mcg PO QAM 03/03/14 10/28/17 History Aspirin 81 mg PO QAM 07/29/14 10/28/17 History Atenolol 100 mg PO HS 09/25/15 10/28/17 History Furosemide [Lasix] 40 mg PO QAM 09/25/15 10/28/17 History ALPRAZolam [Xanax] 2 mg PO Q8H PRN 07/17/16 10/28/17 History DULoxetine HCL [Cymbalta] 60 mg PO DAILY 07/17/16 10/28/17 History Loratadine [Claritin] 10 mg PO DAILY tab 01/26/17 10/28/17 Rx Citalopram Hydrobromide [CeleXA] 40 mg PO DAILY 10/28/17 10/28/17 History Disopyramide Phosphate [Norpace Cr] 150 mg PO BID 10/28/17 10/28/17 History Multivit-Min/Iron/Folic/Lutein 1 tab PO DAILY 10/28/17 10/28/17 History [Centrum Silver Women Tablet] Tofacitinib Citrate [Xeljanz] 5 mg PO DAILY 10/28/17 10/28/17 History Zolpidem [Ambien] 10 mg PO HS PRN 10/28/17 10/28/17 History traMADol HCl [Ultram] 50 mg PO TID PRN 10/28/17 10/28/17 History Allergies Allergy/AdvReac Type Severity Reaction Status Date / Time adhesive tape Allergy Rash/Hives Verified 10/28/17 17:09 Influenza Virus Vaccines Allergy "MAKES HER Verified 10/28/17 17:09 FEEL SICK" Sulfa (Sulfonamide Allergy Rash/Hives Verified 10/28/17 17:09 Antibiotics) amoxicillin trihydrate AdvReac Diarrhea Verified 10/28/17 17:09 [From Augmentin] ciprofloxacin [From Cipro] AdvReac Unknown Verified 10/28/17 17:09 metronidazole [From Flagyl] AdvReac Unknown Verified 10/28/17 17:09 potassium clavulanate AdvReac Diarrhea Verified 10/28/17 17:09 [From Augmentin] quinidine AdvReac BLOOD CLOTS Verified 10/28/17 17:09 Physical Exam Vitals: Vital Signs Temp Pulse Pulse Resp BP BP Pulse Ox 10/29/17 05:15 97.6 F 80 16 123/57 96 10/28/17 22:08 97.7 F 57 L 18 137/69 100 10/28/17 21:44 16 10/28/17 21:21 98.3 F 63 16 138/64 96 10/28/17 16:56 96.8 F L 57 L 20 127/60 97 Intake and Output 10/28/17 10/29/17 10/29/17 22:59 06:59 14:59 Intake Total 270 450 Balance 270 450 Intake: Intake, IV Titration 150 450 Amount Sodium Chloride 0.9% 1, 150 450 000 ml @ 75 mls/hr IV . [id number] [facility] Rx#:[id number] Oral 120 Other: Voiding Method Toilet # Voids 2 Weight 81.647 kg Gen: This is a obese 77-year-old female. She is in bed and appears to be in no acute distress. HEENT: Head is atraumatic, normocephalic. Pupils equal, round. Sclerae is anicteric. NECK: Supple. No JVD. No lymphadenopathy. No thyromegaly. LUNGS: Clear to auscultation. No wheezes or rhonchi. No intercostal retractions. HEART: Regular rate and rhythm. Systolic murmur. ABDOMEN: Soft. Bowel sounds are present. No masses. No tenderness. EXTREMITIES: No pedal edema. No calf tenderness. NEUROLOGICAL: Patient is awake, alert and oriented x3. Cranial nerves 2 through 12 are grossly intact. Results CBC & Chem 7: 10/28/17 19:40 10/28/17 19:40 Labs: Abnormal Lab Results - Last 24 Hours (Table) 10/28/17 10/28/17 10/28/17 Range/Units 19:40 19:40 20:55 RBC 3.67 L (3.80-5.40) m/uL Hgb 10.2 L (11.4-16.0) gm/dL Hct 32.6 L (34.0-46.0) % Chloride 109 H (98-107) mmol/L BUN 29 H (7-17) mg/dL Total Protein 5.8 L (6.3-8.2) g/dL Albumin 3.3 L (3.5-5.0) g/dL Urine Appearance Cloudy H (Clear) Urine Nitrite Positive H (Negative) Ur Leukocyte Esterase Large H (Negative) Urine WBC >182 H (0-5) /hpf Urine WBC Clumps Occasional H (None) /hpf Ur Squamous Epith Cells 7 H (0-4) /hpf Urine Bacteria Many H (None) /hpf Urine Mucus Occasional H (None) /hpf Thrombosis Risk Factor Assmnt - DVT/VTE Prophylaxis DVT/VTE Prophylaxis: Pharmacologic Prophylaxis ordered - Choose All That Apply Any of the Below Risk Factors Present?: No Other Risk Factors: No Each Risk Factor Represents 3 Points: Age 75 years or older Thrombosis Risk Factor Assessment Total Risk Factor Score: 3 Thrombosis Risk Factor Assessment Level: Very Low Risk Assessment and Plan Plan: 1. Acute asymptomatic urinary tract infection. Patient has been on ceftriaxone. Repeat urinalysis and culture ordered. Consult with Dr. Ortiz. 2. Recent treatment for colitis under the care of Dr. Marino. Patient is known to Dr. Mccormack Consult with Dr. You. Patient has been on 2 courses of both ciprofloxacin and Flagyl. These a been discontinued 3 days ago by the patient. 3. Diarrhea with history of C. difficile colitis status post fecal transplant. Consult with Dr. Ortiz. Stool specimen ordered for C. difficile toxin. 4. Anemia of chronic disease. 5. History of SVT. Continue patient on Norpace 150 mg orally twice every day and atenolol 100 mg orally once every day. 4. Hypertension and hypertensive cardiovascular disease. Continue atenolol 100 mg orally once every day. 5. Hyperlipidemia. Low-cholesterol diet. 6. Moderate COPD. stable. 7. GERD. Continue Protonix 40 mg oral daily. 8. Rheumatoid arthritis. Stable. 9. Hypothyroidism. Continue Synthroid 50 g orally once every day. 10. Depression, recurrent. Continue Cymbalta to 60 mg orally once every day. 11. 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 12. DVT prophylaxis. Lovenox daily. 13. GI prophylaxis. Continue Protonix 40 mg daily. 14. Admitted to inpatient. Estimate a length of stay 2 midnights. 15. Patient is full code. Discharge plan: Return home Impression and plan of care have been directed as dictated by the signing physician. Domenica Reed nurse practitioner acting as scribe for signing physician.
[2017-10-29] MEDS ORDERED: cefTRIAXone IN SWFI 1,000 MG/10 ML SYRINGE IVP SCH (13:15)
--- NOTE | 2017-10-29 13:35 | P.CONS ---
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 Patient gives history that she has been under treatment with Dr. Marino for colitis with abdominal pain but no diarrhea. Patient was started on Cipro and Flagyl and completed a two-week course. She states she has had diarrhea since she's been started and also complaining of increased weakness which continued to get worse. Her abdomen is sore but she denies any significant pain. She then picked up another course of ciprofloxacin and Flagyl but 2 days ago she stopped taking it. She states she has been drinking 64 ounces of water. She denies any vomiting. She is only able to eat a small amount of food at a time. She came into [facility] emergency center for evaluation. Her vital signs were stable. Hemoglobin 10.2, white count was 6.4, creatinine 0.6. She underwent a CAT scan of the abdomen and pelvis that showed no acute findings. Her urinalysis was cloudy, leukoesterase large, WBC is greater than 182, WBC clumps occasional, squamous cells 7. Patient was started on ceftriaxone for urinary tract infection and [facility]. Patient denies having any pain or burning with urination. She states this morning she was able to eat some scrambled eggs and afterwards she got up to the bathroom to urinate and it was the first time that she did not have a stool at the same time. There is a consult in place for GI. Patient has had ongoing problems with diarrhea with concern for C. difficile colitis and thus this ID consult was placed. Review of Systems All systems: negative Constitutional: Reports fatigue, Reports lethargy, Reports malaise, Reports poor appetite, Reports weakness, Denies chills, Denies fever Eyes: denies blurred vision, denies pain Ears, nose, mouth and throat: Denies dental pain, Denies headache, Denies sore throat Cardiovascular: Denies chest pain, Denies decreased exercise tolerance, Denies dyspnea on exertion, Denies edema, Denies leg edema, Denies lightheadedness, Denies shortness of breath, Denies syncope Respiratory: Denies cough, Denies cough with sputum, Denies dyspnea, Denies excessive sputum, Denies hemoptysis, Denies home oxygen, Denies wheezing Gastrointestinal: Reports abdominal pain, Reports diarrhea, Reports loss of appetite, Denies nausea, Denies vomiting Genitourinary: Denies dysuria, Denies hematuria Musculoskeletal: Denies myalgias Integumentary: Denies pruritus, Denies rash Neurological: Denies numbness, Denies weakness Psychiatric: Denies anxiety, Denies depression Endocrine: Denies fatigue, Denies weight change Past Medical History Past Medical History: Atrial Fibrillation, Atrial Flutter, GERD/Reflux, Hyperlipidemia, Hypertension, Mitral Valve Prolapse (MVP), Rheumatoid Arthritis (RA), Thyroid Disorder Additional Past Medical History / Comment(s): OTHER HX: 03/06/14, 03/30/14, , 07/29/14 with CDIFF colitis, HYPOTHYROID, MVP, urinary incontinence, PROLAPSED MITRAL VALVE- NO PROBLEMS FOR 30 YRS. History of Any Multi-Drug Resistant Organisms: None Reported Year Discovered:: UNK MDRO Source:: FECAL Past Surgical History: Adenoidectomy, Cholecystectomy, Hysterectomy, Joint Replacement, Orthopedic Surgery, Tonsillectomy Additional Past Surgical History / Comment(s): 02/18/16 total R hip arthroplasty. Other surgical HX: BILATERAL KNEE REPLACEMENT (2003-RIGHT & 2005 - LEFT); LOWER LUMBAR LAMINECTOMYL4-L5 (2007); LEFT HIP REPLACEMENT (2012) ; RIGHT SHOULDER REPLACEMENT (2008), left total knee arthroplasty revision. Bilateral cataracts with lens implants. FECALCAL TRASPLANT TX FOR C-DIFF three times. Past Anesthesia/Blood Transfusion Reactions: No Reported Reaction Additional Past Anesthesia/Blood Transfusion Reaction / Comm: blood transfusion in past no reactions Past Psychological History: Anxiety, Depression Additional Psychological History / Comment(s): pt lives in own home w/ a nephew , SHE IS A . CARES FOR HERSELF BUT DOES HAVE A CLEANING LADY ONCE A MONTH. STILL DRIVES, has an electric scooter/w/c. Smoking Status: Current every day smoker Past Alcohol Use History: None Reported Additional Past Alcohol Use History / Comment(s): has smoked since 1954- 5 cig per day and stated she has no intention of quitting No alcohol use or abuse. No street drug use marijuana or medical marijuana use. Past Drug Use History: None Reported - Past Family History Mother Family Medical History: Cancer Father Family Medical History: CVA/TIA Sister(s) Family Medical History: Unable to Obtain Daughter(s) Family Medical History: COPD, Myocardial Infarction (ID) Additional Family Medical History / Comment(s): Mother at age 60 yrs of emphysema/lung CA Son(s) Family Medical History: Myocardial Infarction (ID) Additional Family Medical History / Comment(s): Father at age 74yrs with "CVA of his larynx" Medications and Allergies Home Medications Medication Instructions Recorded Confirmed Type Levothyroxine Sodium [Synthroid] 50 mcg PO QAM 03/03/14 10/28/17 History Aspirin 81 mg PO QAM 07/29/14 10/28/17 History Atenolol 100 mg PO HS 09/25/15 10/28/17 History Furosemide [Lasix] 40 mg PO QAM 09/25/15 10/28/17 History ALPRAZolam [Xanax] 2 mg PO Q8H PRN 07/17/16 10/28/17 History DULoxetine HCL [Cymbalta] 60 mg PO DAILY 07/17/16 10/28/17 History Loratadine [Claritin] 10 mg PO DAILY tab 01/26/17 10/28/17 Rx Citalopram Hydrobromide [CeleXA] 40 mg PO DAILY 10/28/17 10/28/17 History Disopyramide Phosphate [Norpace Cr] 150 mg PO BID 10/28/17 10/28/17 History Multivit-Min/Iron/Folic/Lutein 1 tab PO DAILY 10/28/17 10/28/17 History [Centrum Silver Women Tablet] Tofacitinib Citrate [Xeljanz] 5 mg PO DAILY 10/28/17 10/28/17 History Zolpidem [Ambien] 10 mg PO HS PRN 10/28/17 10/28/17 History traMADol HCl [Ultram] 50 mg PO TID PRN 10/28/17 10/28/17 History Allergies Allergy/AdvReac Type Severity Reaction Status Date / Time adhesive tape Allergy Rash/Hives Verified 10/28/17 17:09 Influenza Virus Vaccines Allergy "MAKES HER Verified 10/28/17 17:09 FEEL SICK" Sulfa (Sulfonamide Allergy Rash/Hives Verified 10/28/17 17:09 Antibiotics) amoxicillin trihydrate AdvReac Diarrhea Verified 10/28/17 17:09 [From Augmentin] ciprofloxacin [From Cipro] AdvReac Unknown Verified 10/28/17 17:09 metronidazole [From Flagyl] AdvReac Unknown Verified 10/28/17 17:09 potassium clavulanate AdvReac Diarrhea Verified 10/28/17 17:09 [From Augmentin] quinidine AdvReac BLOOD CLOTS Verified 10/28/17 17:09 Physical Exam Vitals: Vital Signs Temp Pulse Pulse Resp BP BP Pulse Ox 10/29/17 05:15 97.6 F 80 16 123/57 96 10/28/17 22:08 97.7 F 57 L 18 137/69 100 10/28/17 21:44 16 10/28/17 21:21 98.3 F 63 16 138/64 96 10/28/17 16:56 96.8 F L 57 L 20 127/60 97 Intake and Output 10/28/17 10/29/17 10/29/17 22:59 06:59 14:59 Intake Total 270 450 Balance 270 450 Intake: Intake, IV Titration 150 450 Amount Sodium Chloride 0.9% 1, 150 450 000 ml @ 75 mls/hr IV . [id number] [facility] Rx#:[id number] Oral 120 Other: Voiding Method Toilet # Voids 2 1 Weight 81.647 kg Gen: This is a obese 77-year-old female. She is in bed and appears to be in no acute distress. HEENT: Head is atraumatic, normocephalic. Pupils equal, round. Sclerae is anicteric. NECK: Supple. No JVD. No lymphadenopathy. No thyromegaly. LUNGS: Clear to auscultation. No wheezes or rhonchi. No intercostal retractions. HEART: Regular rate and rhythm. Systolic murmur. ABDOMEN: Soft. Bowel sounds are present. No masses. No tenderness. EXTREMITIES: No pedal edema. No calf tenderness. NEUROLOGICAL: Patient is awake, alert and oriented x3. Cranial nerves 2 through 12 are grossly intact. Results Results: Laboratory Results WBC 6.4 k/uL (3.8-10.6) 10/28/17 19:40 RBC 3.67 m/uL (3.80-5.40) L 10/28/17 19:40 Hgb 10.2 gm/dL (11.4-16.0) L 10/28/17 19:40 Hct 32.6 % (34.0-46.0) L 10/28/17 19:40 MCV 88.8 fL (80.0-100.0) 10/28/17 19:40 MCH 27.7 pg (25.0-35.0) 10/28/17 19:40 MCHC 31.2 g/dL (31.0-37.0) 10/28/17 19:40 RDW 14.1 % (11.5-15.5) 10/28/17 19:40 Plt Count 230 k/uL (150-450) 10/28/17 19:40 Neutrophils % 67 % 10/28/17 19:40 Lymphocytes % 23 % 10/28/17 19:40 Monocytes % 6 % 10/28/17 19:40 Eosinophils % 1 % 10/28/17 19:40 Basophils % 0 % 10/28/17 19:40 Neutrophils # 4.2 k/uL (1.3-7.7) 10/28/17 19:40 Lymphocytes # 1.5 k/uL (1.0-4.8) 10/28/17 19:40 Monocytes # 0.4 k/uL (0-1.0) 10/28/17 19:40 Eosinophils # 0.1 k/uL (0-0.7) 10/28/17 19:40 Basophils # 0.0 k/uL (0-0.2) 10/28/17 19:40 Hypochromasia Moderate 10/28/17 19:40 Sodium 140 mmol/L (137-145) 10/28/17 19:40 Potassium 3.8 mmol/L (3.5-5.1) 10/28/17 19:40 Chloride 109 mmol/L (98-107) H 10/28/17 19:40 Carbon Dioxide 24 mmol/L (22-30) 10/28/17 19:40 Anion Gap 7 mmol/L 10/28/17 19:40 BUN 29 mg/dL (7-17) H 10/28/17 19:40 Creatinine 0.60 mg/dL (0.52-1.04) 10/28/17 19:40 Est GFR (CKD-EPI)AfAm >90 (>60 ml/min/1.73 sqM) 10/28/17 19:40 Est GFR (CKD-EPI)NonAf 89 (>60 ml/min/1.73 sqM) 10/28/17 19:40 Glucose 84 mg/dL (74-99) 10/28/17 19:40 Calcium 8.4 mg/dL (8.4-10.2) 10/28/17 19:40 Total Bilirubin 0.3 mg/dL (0.2-1.3) 10/28/17 19:40 AST 32 U/L (14-36) 10/28/17 19:40 ALT 25 U/L (9-52) 10/28/17 19:40 Alkaline Phosphatase 51 U/L (38-126) 10/28/17 19:40 Total Protein 5.8 g/dL (6.3-8.2) L 10/28/17 19:40 Albumin 3.3 g/dL (3.5-5.0) L 10/28/17 19:40 Urine Color Yellow 10/28/17 20:55 Urine Appearance Cloudy (Clear) H 10/28/17 20:55 Urine pH 6.0 (5.0-8.0) 10/28/17 20:55 Ur Specific [place] 1.015 (1.001-1.035) 10/28/17 20:55 Urine Protein Negative (Negative) 10/28/17 20:55 Urine Glucose (UA) Negative (Negative) 10/28/17 20:55 Urine Ketones Negative (Negative) 10/28/17 20:55 Urine Blood Negative (Negative) 10/28/17 20:55 Urine Nitrite Positive (Negative) H 10/28/17 20:55 Urine Bilirubin Negative (Negative) 10/28/17 20:55 Urine Urobilinogen <2.0 mg/dL (<2.0) 10/28/17 20:55 Ur Leukocyte Esterase Large (Negative) H 10/28/17 20:55 Urine WBC >182 /hpf (0-5) H 10/28/17 20:55 Urine WBC Clumps Occasional /hpf (None) H 10/28/17 20:55 Ur Squamous Epith Cells 7 /hpf (0-4) H 10/28/17 20:55 Urine Bacteria Many /hpf (None) H 10/28/17 20:55 Urine Mucus Occasional /hpf (None) H 10/28/17 20:55 CBC & Chem 7: 10/28/17 19:40 10/28/17 19:40 Labs: Abnormal Lab Results - Last 24 Hours (Table) 10/28/17 10/28/17 10/28/17 Range/Units 19:40 19:40 20:55 RBC 3.67 L (3.80-5.40) m/uL Hgb 10.2 L (11.4-16.0) gm/dL Hct 32.6 L (34.0-46.0) % Chloride 109 H (98-107) mmol/L BUN 29 H (7-17) mg/dL Total Protein 5.8 L (6.3-8.2) g/dL Albumin 3.3 L (3.5-5.0) g/dL Urine Appearance Cloudy H (Clear) Urine Nitrite Positive H (Negative) Ur Leukocyte Esterase Large H (Negative) Urine WBC >182 H (0-5) /hpf Urine WBC Clumps Occasional H (None) /hpf Ur Squamous Epith Cells 7 H (0-4) /hpf Urine Bacteria Many H (None) /hpf Urine Mucus Occasional H (None) /hpf Assessment and Plan Plan: This is a 77-year-old female who presented to the hospital with concerns for ongoing diarrhea recently under treatment for colitis on 2 courses of antibiotics with both ciprofloxacin and Flagyl and patient with history of C. difficile colitis status post fecal transplantation and possible urinary tract infection. At this time, stool specimen has not been obtainable. Urinalysis and urine culture in progress. Patient is on ceftriaxone. Continue supportive care. Further recommendations as patient progresses. The above dictated assessment and findings were discussed with Dr. Ortiz. The impression and plan of care have been directed as dictated. Domenica Reed nurse practitioner acting as scribe for Dr. Ortiz.
[2017-10-29 13:37] LABS: Appearance,Urine Clear (Clear); Bilirubin,Urine Negative (Negative); Blood,Urine Small (Negative); Color,Urine Colorless; Glucose,Urine (UA) Negative (Negative); Ketones,Urine Negative (Negative); Leukocyte Esterase,Urine Trace (Negative); Mucus,Urine Rare /hpf; Nitrite,Urine Negative (Negative); PH, Urine 6.5 (5.0-8.0); Protein,Urine Negative (Negative); Specific Gravity,Urine 1.006 (1.001-1.035); Squamous Epithelial Cell,Urine 1 /hpf (0-4); Urobilinogen,Urine <2.0 mg/dL (<2.0); WBC,Urine 1 /hpf (0-5)
[2017-10-29] MEDS: ALPRAZolam 0.5 MG TAB PO PRN (23:48)
[2017-10-29] MEDS: ZOLPIDEM 10 MG TAB PO PRN (23:48)
--- NOTE | 2017-10-29 23:48 | P.CON ---
Consult Note - . Consult date: 10/29/17 Assessment/Plan:: This is a 77-year-old female one of Dr. 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 Patient's last hospitalization was in January 2017 at which time she was treated for acute blood loss anemia with EGD finding only mild antral gastritis. Patient gives history that she has been under treatment with Dr. Marino for colitis and at that time she only had abdominal pain but no diarrhea. Patient was started on Cipro and Flagyl and completed a two-week course. She states she has had diarrhea since she's been started and also complaining of increased weakness which continued to get worse. Her abdomen is sore but she denies any significant pain. She then picked up another course of ciprofloxacin and Flagyl but 2 days ago she stopped taking it. She states she has been drinking 64 ounces of water. She denies any vomiting. She is only able to eat a small amount of food at a time. She came into [facility] emergency center for evaluation. Her vital signs were stable. Hemoglobin 10.2, white count was 6.4, creatinine 0.6. She underwent a CAT scan of the abdomen and pelvis that showed no acute findings. Her urinalysis was cloudy, leukoesterase large, WBC is greater than 182, WBC clumps occasional, squamous cells 7. Patient was started on ceftriaxone for urinary tract infection and admitted to the [facility] floor. Patient denies having any ear pain or burning with urination. He states this morning she was able to eat some scrambled eggs and afterwards she got up to the bathroom to urinate and it was the first time that she did not have a stool at the same time. Subsequently, consult placed with Dr. Ortiz from infectious disease. Patient has had ongoing problems with diarrhea with concern for C. difficile colitis. Please see the consult note as dictated by nurse practitioner Domenica Goodrichjose. 77-year-old woman presents to Hospital with recent difficulties with abdominal pain and has received several courses of antibiotic therapy. She still having some diarrhea and constantly was very concerned presented to Hospital. She has a history of C. diff colitis with prior fecal transplantation. She has has now developed diarrhea and weakness and workup is in process. The patient has been receiving multiple antibiotics including metronidazole which can give significant GI distress and even altered mental status and this will be discontinued at this point in time. Original urinalysis is mildly abnormal antibiotics were begun. Follow-up urinalysis is negative elect to discontinue the ceftriaxone and that she has no urinary symptoms and is not likely that she has a urinary tract infection. With history of C. diff would also like to limit antibiotic therapy as much as possible. Stool for C. diff is pending but does not seem to be likely at this time given the lack of frequent stool and the lack of the classic odor to them the name. Probiotic therapy will be added in the patient's frequency of stools were monitored. Computed tomography scan was performed that shows evidence of improvement since last evaluation. For now continue supportive care, fluid resuscitation and management of discomfort. Laboratory testing will further direct course of therapy, I agree with evaluation, assessment and plan is to see by nurse practitioner Mrs. Domenica Reed.
[2017-10-30] MEDS: traMADol 50 MG TAB PO PRN ×3 (05:31→21:27)
[2017-10-30] MEDS: LEVOTHYROXINE 50 MCG TAB PO SCH (06:00)
[2017-10-30] MEDS: SODIUM CHLORIDE 0.9% 1,000 ML IV SCH ×4 (08:07→14:59)
[2017-10-30] MEDS: Tofacitinib Citrate [Xeljanz] 5 MG PO SCH (08:10)
[2017-10-30] MEDS: VIT A,C & E-LUTEIN-MINERALS 1 EACH TAB PO SCH (08:10)
[2017-10-30] MEDS: PANTOPRAZOLE 40 MG TABLET PO SCH (08:10)
[2017-10-30] MEDS: FUROSEMIDE 40 MG TAB PO SCH (08:10)
[2017-10-30] MEDS: DULoxetine HCL 60 MG CAPSULE.DR PO SCH (08:10)
[2017-10-30] MEDS: DISOPYRAMIDE 150 MG PO SCH ×2 (08:10→21:26)
[2017-10-30] MEDS: LORATADINE 10 MG TAB PO SCH (08:10)
[2017-10-30] MEDS: CITALOPRAM HYDROBROMIDE 20 MG TAB PO SCH (08:10)
[2017-10-30] MEDS: LACTOBACILLUS ACIDOPH & BULGAR 1 EACH PACKET PO SCH ×3 (08:10→21:26)
[2017-10-30] MEDS: ASPIRIN 81 MG PO SCH (08:10)
[2017-10-30] MEDS ORDERED: ACETAMINOPHEN TAB 325 MG TAB PO PRN (09:09)
[2017-10-30 09:45] LABS: HCT 31.4 % (34.0-46.0); HGB 9.8 gm/dL (11.4-16.0); Hypochromasia Moderate; MCH 27.6 pg (25.0-35.0); MCHC 31.3 g/dL (31.0-37.0); MCV 88.1 fL (80.0-100.0); Platelet Count 334 k/uL (150-450); Poikilocytosis Slight; RBC 3.56 m/uL (3.80-5.40); RDW 13.8 % (11.5-15.5); WBC 6.3 k/uL (3.8-10.6)
--- NOTE | 2017-10-30 11:29 | P.PN ---
Subjective Progress Note Date: 10/30/17 This is a 77-year-old female one of Dr. 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 Patient's last hospitalization was in January 2017 at which time she was treated for acute blood loss anemia with EGD finding only mild antral gastritis. Patient gives history that she has been under treatment with Dr. Marino for colitis and at that time she only had abdominal pain but no diarrhea. Patient was started on Cipro and Flagyl and completed a two-week course. She states she has had diarrhea since she's been started and also complaining of increased weakness which continued to get worse. Her abdomen is sore but she denies any significant pain. She then picked up another course of ciprofloxacin and Flagyl but 2 days ago she stopped taking it. She states she has been drinking 64 ounces of water. She denies any vomiting. She is only able to eat a small amount of food at a time. She came into [facility] emergency center for evaluation. Her vital signs were stable. Hemoglobin 10.2, white count was 6.4, creatinine 0.6. She underwent a CAT scan of the abdomen and pelvis that showed no acute findings. Her urinalysis was cloudy, leukoesterase large, WBC is greater than 182, WBC clumps occasional, squamous cells 7. Patient was started on ceftriaxone for urinary tract infection and admitted to the [facility] floor. Patient denies having any ear pain or burning with urination. He states this morning she was able to eat some scrambled eggs and afterwards she got up to the bathroom to urinate and it was the first time that she did not have a stool at the same time. Subsequently, consult placed with Dr. Ortiz from infectious disease. Patient has had ongoing problems with diarrhea with concern for C. difficile colitis. 10/30: Patient had stool that was dark red yesterday and this was sent for occult blood which came back positive. Patient is seen by Dr. You. She is complaining of headache for which Tylenol will be added. Patient has been seen by Dr. Ortiz with recommendations for no antibiotics at this time. C. difficile toxin has returned negative. Anticipate discharge home tomorrow. Objective - Vital Signs Vital signs: Vital Signs Temp 98.0 F 10/30/17 05:55 Pulse 47 L 10/30/17 05:55 Resp 16 10/30/17 05:55 BP 112/55 10/30/17 05:55 Pulse Ox 97 10/30/17 05:55 Intake & Output 10/29/17 10/30/17 10/30/17 18:59 06:59 18:59 Intake Total 1560 540 Balance 1560 540 Intake: Oral 1560 540 Other: Voiding Method Toilet # Voids 5 1 - Exam Gen: This is a obese 77-year-old female. She is in bed and appears to be in no acute distress. HEENT: Head is atraumatic, normocephalic. Pupils equal, round. Sclerae is anicteric. NECK: Supple. No JVD. No lymphadenopathy. No thyromegaly. LUNGS: Clear to auscultation. No wheezes or rhonchi. No intercostal retractions. HEART: Regular rate and rhythm. Systolic murmur. ABDOMEN: Soft. Bowel sounds are present. No masses. No tenderness. EXTREMITIES: No pedal edema. No calf tenderness. NEUROLOGICAL: Patient is awake, alert and oriented x3. Cranial nerves 2 through 12 are grossly intact. - Labs CBC & Chem 7: 10/30/17 09:19 10/28/17 19:40 Labs: Abnormal Lab Results - Last 24 Hours (Table) 10/29/17 10/29/17 Range/Units 12:43 14:00 Urine Blood Small H (Negative) Ur Leukocyte Esterase Trace H (Negative) Urine Mucus Rare H (None) /hpf Stool Occult Blood Positive H (Negative) Microbiology - Last 24 Hours (Table) 10/29/17 12:43 Urine Culture - Preliminary Urine,Clean Catch Assessment and Plan Plan: 1. Bacteriuria without infection. Consult with Dr. Ortiz appreciated. No antibiotics. 2. Recent treatment for colitis under the care of Dr. Marino. Patient is known to Dr. Mccormack Consult with Dr. You. Patient has been on 2 courses of both ciprofloxacin and Flagyl. These a been discontinued 3 days ago by the patient. 3. Diarrhea with history of C. difficile colitis status post fecal transplant. Consult with Dr. Ortiz. C. difficile colitis has been ruled out. Consult with Dr You for GI bleed. 4. Anemia of chronic disease. 5. History of SVT. Continue patient on Norpace 150 mg orally twice every day and atenolol 100 mg orally once every day. 4. Hypertension and hypertensive cardiovascular disease. Continue atenolol 100 mg orally once every day. 5. Hyperlipidemia. Low-cholesterol diet. 6. Moderate COPD. stable. 7. GERD. Continue Protonix 40 mg oral daily. 8. Rheumatoid arthritis. Stable. 9. Hypothyroidism. Continue Synthroid 50 g orally once every day. 10. Depression, recurrent. Continue Cymbalta to 60 mg orally once every day. 11. 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 12. DVT prophylaxis. Lovenox daily. 13. GI prophylaxis. Continue Protonix 40 mg daily. 14. Patient is full code. Discharge plan: Return home Impression and plan of care have been directed as dictated by the signing physician. Domenica Reed nurse practitioner acting as scribe for signing physician.
--- NOTE | 2017-10-30 13:24 | CONS ---
CONSULTATION DATE OF SERVICE: October 30, 2017. REASON FOR CONSULTATION: Chronic diarrhea. 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 She started having diarrhea from mid September and was having about 8-10 loose watery bowel movements daily associated with lower abdominal discomfort. She saw Dr. Marino on an outpatient basis and was given empiric treatment of ciprofloxacin for 2 weeks. She continued to have persistent diarrhea and about a few days later, the antibiotics were repeated again and while she was taking the medication, she became extremely weak and tired and hence came into the emergency room for further evaluation. She had a CT of the abdomen and pelvis done in the emergency room and that was unremarkable. In the meantime, her antibiotics were on hold and since then, her symptoms are significantly improved. In fact, all day yesterday she did not have any diarrhea and so far none today. She had in face one small bowel movement with no bleeding. She did have cramping lower abdominal pain, but presently is asymptomatic. She reports no abdominal pain. No nausea, no vomiting. Overall, she is feeling much better. During this hospitalization, she did have stool studies for C diff toxin that came back as negative. PAST MEDICAL HISTORY: Significant for A. fib, hypertension, hyperlipidemia, GERD, rheumatoid arthritis, mitral valve prolapse, hypothyroidism. PAST SURGICAL HISTORY: EGD, colonoscopy in November of 2014 as a part of evaluation of severe symptomatic anemia which was unremarkable. History of laminectomy, right shoulder replacement, bilateral cataract surgery, total knee arthroplasty and right hip arthroplasty. History of adenoidectomy, cholecystectomy, hysterectomy, and tonsillectomy. MEDICATIONS: At home include Synthroid, aspirin, Atenolol, Lasix, Xanax, Cymbalta, Claritin, Celexa, multivitamins, and Ambien and Ultram. ALLERGIES: To AMOXICILLIN, SULFA AND POTASSIUM. SOCIAL HISTORY: No smoking. No alcohol use. FAMILY HISTORY: Mother had some kind of cancer. Father had CVA and TIA. REVIEW OF SYSTEMS: Cardiopulmonary: No chest pain, shortness of breath. Genitourinary: No dysuria or hematuria. Musculoskeletal: Unremarkable. Skin unremarkable. Endocrine unremarkable. Psychiatric: Unremarkable. Neurological: Unremarkable. ENT/vision unremarkable. Constitutional: No recent weight loss. No fever, chills, night sweats. PHYSICAL EXAMINATION: She appears comfortable. No apparent distress. Vital signs are stable. Blood pressure is 104/64, pulse rate 49, temperature 98.4. HEENT examination unremarkable. Conjunctivae pink. Sclerae anicteric. Oral cavity no lesions. Neck no jugular venous distention or lymph node enlargement. The chest was clear to auscultation. HEART: Regular rate and rhythm. ABDOMEN: Soft. Bowel sounds are positive. No organomegaly. Extremities: No pedal edema. Skin no rashes. NEUROLOGIC: Alert and oriented x3. No focal deficits. LAB: Done at the time of admission to the hospital: WBC 6.4, hemoglobin 10.2, platelets are normal. Basic metabolic panel is within normal limits. Today hemoglobin is 9.8, WBC 6.3, platelets 334. C diff toxin is negative. Stool Hemoccult was positive. IMPRESSION: 1. This is a lady who presents with chronic diarrhea for the last one month duration who had prior history of recurrent C diff colitis for which she underwent stool transplant at [facility] in 2016. Because of the recurrent diarrhea, she had C diff toxin done on outpatient basis which was negative. She was treated empirically with Cipro and Flagyl for 2 weeks with no relief in her symptoms. She was restarted back on antibiotics eight days ago, but while she was on the medications, she became extremely weak and tired, came to the emergency room and now all her antibiotics have been on hold and since then the diarrhea has completely resolved. The patient did have an EGD and colonoscopy in November of 2014 that was unremarkable. Most likely she had antibiotic associated diarrhea. Recent C diff toxin testing was once again reported as negative. 2. Hemoccult-positive stool, but stable hemoglobin. As mentioned above, EGD and colonoscopy in November of 2014 was unremarkable. RECOMMENDATIONS: 1. Advance diet as tolerated. 2. Since the diarrhea has resolved at this time, we will continue with conservative approach. No plans on any endoscopy intervention at the present time. 3. We will follow the patient closely during the hospital stay. Thank you for this consultation. MMODL / IJN: [id number] /
[2017-10-30] MEDS: ATENOLOL 50 MG TAB PO SCH (20:45)
[2017-10-30] MEDS: ALPRAZolam 0.5 MG TAB PO PRN (21:27)
[2017-10-30] MEDS: ZOLPIDEM 10 MG TAB PO PRN (22:13)
[2017-10-31] MEDS: LOPERAMIDE 2 MG CAP PO PRN ×2 (00:17→05:42)
[2017-10-31] MEDS: SODIUM CHLORIDE 0.9% 1,000 ML IV SCH ×3 (01:21→14:58)
[2017-10-31] MEDS: traMADol 50 MG TAB PO PRN ×3 (05:17→21:42)
[2017-10-31] MEDS: LEVOTHYROXINE 50 MCG TAB PO SCH (05:42)
[2017-10-31] MEDS: LACTOBACILLUS ACIDOPH & BULGAR 1 EACH PACKET PO SCH ×3 (07:53→21:42)
[2017-10-31] MEDS: PANTOPRAZOLE 40 MG TABLET PO SCH (07:53)
[2017-10-31 07:56] LABS: HCT 28.6 % (34.0-46.0); HGB 9.1 gm/dL (11.4-16.0); Hypochromasia Moderate; MCH 27.9 pg (25.0-35.0); MCHC 31.7 g/dL (31.0-37.0); MCV 88.2 fL (80.0-100.0); Mean Platelet Volume 7.1; Platelet Count 260 k/uL (150-450); RBC 3.25 m/uL (3.80-5.40); RDW 13.9 % (11.5-15.5); WBC 5.7 k/uL (3.8-10.6)
[2017-10-31 08:23] LABS: ALT 22 U/L (9-52); AST 19 U/L (14-36); Albumin 3.1 g/dL (3.5-5.0); Alkaline Phosphatase 52 U/L (38-126); Anion Gap 8 mmol/L; Blood Urea Nitrogen 6 mg/dL (7-17); Calcium 8.2 mg/dL (8.4-10.2); Carbon Dioxide 26 mmol/L (22-30); Chloride 104 mmol/L (98-107); Glucose 84 mg/dL (74-99); Sodium 138 mmol/L (137-145); Total Bilirubin 0.2 mg/dL (0.2-1.3); Total Protein 5.5 g/dL (6.3-8.2)
--- NOTE | 2017-10-31 09:26 | P.PN ---
Subjective Progress Note Date: 10/31/17 This is a 77-year-old female one of Dr. Marino with a previous medical history significant for hypertension and hypertensive cardio vascular disease, mitral valve prolapse, supraventricular tachycardia, rheumatoid arthritis, GERD, COPD, and recurrent C. difficile colitis for which she required fecal transplantation at [facility]. Patient's last hospitalization was in January 2017 at which time she was treated for acute blood loss anemia with EGD finding only mild antral gastritis. Patient gives history that she has been under treatment with Dr. Marino for colitis and at that time she only had abdominal pain but no diarrhea. Patient was started on Cipro and Flagyl and completed a two-week course. She states she has had diarrhea since she's been started and also complaining of increased weakness which continued to get worse. Her abdomen is sore but she denies any significant pain. She then picked up another course of ciprofloxacin and Flagyl but 2 days ago she stopped taking it. She states she has been drinking 64 ounces of water. She denies any vomiting. She is only able to eat a small amount of food at a time. She came into [facility] emergency center for evaluation. Her vital signs were stable. Hemoglobin 10.2, white count was 6.4, creatinine 0.6. She underwent a CAT scan of the abdomen and pelvis that showed no acute findings. Her urinalysis was cloudy, leukoesterase large, WBC is greater than 182, WBC clumps occasional, squamous cells 7. Patient was started on ceftriaxone for urinary tract infection and [facility] Patient denies having any ear pain or burning with urination. He states this morning she was able to eat some scrambled eggs and afterwards she got up to the bathroom to urinate and it was the first time that she did not have a stool at the same time. Subsequently, consult placed with Dr. Ortiz from infectious disease. Patient has had ongoing problems with diarrhea with concern for C. difficile colitis. 10/30: Patient had stool that was dark red yesterday and this was sent for occult blood which came back positive. Patient is seen by Dr. Mccormack. She is complaining of headache for which Tylenol will be added. Patient has been seen by Dr. Ortiz with recommendations for no antibiotics at this time. C. difficile toxin has returned negative. Patient continues to have very poor oral intake and only eating a few bites. She will been started on IV fluids at 100 mL per hour. Anticipate possible discharge home tomorrow. 10/31: Patient continued to have diarrhea and Imodium was given last evening. Her last bowel movement was at 9:30 pm. She was able to eat cereal and banana. Plan to continue IVF for most of today and monitor over night and most likely discharge home tomorrow. Objective - Vital Signs Vital signs: Vital Signs Temp 97.0 F L 10/31/17 05:00 Pulse 55 L 10/31/17 05:00 Resp 16 10/31/17 05:00 BP 106/58 10/31/17 05:00 Pulse Ox 98 10/31/17 05:00 Intake & Output 10/30/17 10/31/17 10/31/17 18:59 06:59 18:59 Weight 88.451 kg Other: Voiding Method Toilet Toilet # Voids 2 2 # Bowel Movements 2 - Exam Gen: This is a obese 77-year-old female. She is in bed and appears to be in no acute distress. HEENT: Head is atraumatic, normocephalic. Pupils equal, round. Sclerae is anicteric. NECK: Supple. No JVD. No lymphadenopathy. No thyromegaly. LUNGS: Clear to auscultation. No wheezes or rhonchi. No intercostal retractions. HEART: Regular rate and rhythm. Systolic murmur. ABDOMEN: Soft. Bowel sounds are present. No masses. No tenderness. EXTREMITIES: No pedal edema. No calf tenderness. NEUROLOGICAL: Patient is awake, alert and oriented x3. Cranial nerves 2 through 12 are grossly intact. - Labs CBC & Chem 7: 10/31/17 07:19 10/31/17 07:19 Labs: Abnormal Lab Results - Last 24 Hours (Table) 10/30/17 10/31/17 Range/Units 09:19 07:19 RBC 3.56 L 3.25 L (3.80-5.40) m/uL Hgb 9.8 L 9.1 L (11.4-16.0) gm/dL Hct 31.4 L 28.6 L (34.0-46.0) % Microbiology - Last 24 Hours (Table) 10/29/17 12:43 Urine Culture - Final Urine,Clean Catch Assessment and Plan Plan: 1. Bacteriuria without infection. Consult with Dr. Ortiz appreciated. No antibiotics. 2. Recent treatment for colitis under the care of Dr. Marino. Patient is known to Dr. Mccormack Consult with Dr. You. Patient has been on 2 courses of both ciprofloxacin and Flagyl. These a been discontinued 3 days ago by the patient. 3. Diarrhea with history of C. difficile colitis status post fecal transplant. Consult with Dr. Ortiz. C. difficile colitis has been ruled out. Consult with Dr You for GI bleed. Imodium added. 4. Anemia of chronic disease. 5. History of SVT. Continue patient on Norpace 150 mg orally twice every day and atenolol 100 mg orally once every day. 4. Hypertension and hypertensive cardiovascular disease. Continue atenolol 100 mg orally once every day. 5. Hyperlipidemia. Low-cholesterol diet. 6. Moderate COPD. stable. 7. GERD. Continue Protonix 40 mg oral daily. 8. Rheumatoid arthritis. Stable. 9. Hypothyroidism. Continue Synthroid 50 g orally once every day. 10. Depression, recurrent. Continue Cymbalta to 60 mg orally once every day. 11. 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 12. DVT prophylaxis. Lovenox daily. 13. GI prophylaxis. Continue Protonix 40 mg daily. 14. Patient is full code. Discharge plan: Return home Wednesday. Impression and plan of care have been directed as dictated by the signing physician. Domenica Reed nurse practitioner acting as scribe for signing physician.
[2017-10-31] MEDS: CITALOPRAM HYDROBROMIDE 20 MG TAB PO SCH (09:33)
[2017-10-31] MEDS: VIT A,C & E-LUTEIN-MINERALS 1 EACH TAB PO SCH (09:33)
[2017-10-31] MEDS: DULoxetine HCL 60 MG CAPSULE.DR PO SCH (09:33)
[2017-10-31] MEDS: DISOPYRAMIDE 150 MG PO SCH ×2 (09:33→21:42)
[2017-10-31] MEDS: LORATADINE 10 MG TAB PO SCH (09:34)
[2017-10-31] MEDS: Tofacitinib Citrate [Xeljanz] 5 MG PO SCH (09:34)
[2017-10-31] MEDS: ASPIRIN 81 MG PO SCH (09:34)
[2017-10-31] MEDS: FUROSEMIDE 40 MG TAB PO SCH (09:34)
[2017-10-31] MEDS: POTASSIUM CHLORIDE ER 20 MEQ TAB.ER PO SCH ×2 (09:38→11:45)
--- NOTE | 2017-10-31 12:40 | PN ---
PROGRESS NOTE DATE OF SERVICE: October 31, 2017 Patient is a 77-year-old pleasant white female admitted to the hospital with severe diarrhea, abdominal pain of one month duration. She was treated with 2 courses of Cipro and Flagyl on an outpatient basis and while she was towards the tail end of her 2nd course, she started feeling extremely worse and hence was admitted to the hospital for further evaluation. Since being in the hospital, antibiotic regimen was discontinued. She had a CT of the abdomen and pelvis done that was unremarkable. Repeat C diff toxin was negative. She was doing well. Yesterday, however, after eating her meal, she had some cramping lower abdominal pain with diarrhea. She was started on Imodium and she is feeling much better today. PHYSICAL EXAMINATION: Appears comfortable in no apparent distress. VITAL SIGNS: Stable. Blood pressure 87/51, pulse rate 50, temperature 97.5. HEENT examination unremarkable. Conjunctivae pink. Sclerae anicteric. Oral cavity no lesions. Neck no jugular venous distention or lymph node enlargement. Chest was clear to auscultation. HEART: Regular rate and rhythm. ABDOMEN: Soft. Bowel sounds are positive. No organomegaly. Extremities: No pedal edema. Skin no rashes. NEUROLOGIC: Alert and oriented x3. No focal deficits. LABS: From today WBC 5.7, hemoglobin 9.1, platelets are normal. Potassium 3, BUN and creatinine normal. IMPRESSION: 1. Chronic diarrhea of 1 month duration status post and empiric antibiotic therapy on an outpatient basis with no help. Presently on Imodium 1 tablet 3 times daily and the diarrhea has resolved. 2. Anemia and Hemoccult-positive stool. She did have an EGD and colonoscopy in November of 2014 as well as capsule endoscopy that was unremarkable. RECOMMENDATIONS: 1. Continue with Imodium as needed. 2. Patient can be discharged home today with outpatient follow up in 2 weeks. Thank you for this consultation. MMODL / IJN: [id number] /
[2017-10-31] MEDS: ATENOLOL 50 MG TAB PO SCH (21:42)
[2017-10-31] MEDS: ALPRAZolam 0.5 MG TAB PO PRN (22:11)
[2017-11-01] MEDS: ZOLPIDEM 10 MG TAB PO PRN (00:55)
[2017-11-01] MEDS: LEVOTHYROXINE 50 MCG TAB PO SCH (05:50)
[2017-11-01] MEDS: SODIUM CHLORIDE 0.9% 1,000 ML IV SCH (05:50)
[2017-11-01] MEDS: traMADol 50 MG TAB PO PRN (05:58)
[2017-11-01] MEDS: PANTOPRAZOLE 40 MG TABLET PO SCH (07:08)
[2017-11-01] MEDS: ASPIRIN 81 MG PO SCH (07:09)
[2017-11-01] MEDS: LORATADINE 10 MG TAB PO SCH (07:09)
[2017-11-01] MEDS: DISOPYRAMIDE 150 MG PO SCH (07:09)
[2017-11-01] MEDS: VIT A,C & E-LUTEIN-MINERALS 1 EACH TAB PO SCH (07:09)
[2017-11-01] MEDS: LACTOBACILLUS ACIDOPH & BULGAR 1 EACH PACKET PO SCH (07:09)
[2017-11-01] MEDS: CITALOPRAM HYDROBROMIDE 20 MG TAB PO SCH (07:10)
[2017-11-01] MEDS: DULoxetine HCL 60 MG CAPSULE.DR PO SCH ×2 (07:10→07:20)
[2017-11-01] MEDS: FUROSEMIDE 40 MG TAB PO SCH (07:10)
[2017-11-01] MEDS: ATENOLOL 50 MG TAB PO SCH (07:10)
[2017-11-01] MEDS: Tofacitinib Citrate [Xeljanz] 5 MG PO SCH (07:11)
[2017-11-01 07:12] VITALS: BP 116/55; PULSE 61; TEMP 97.9
[2017-11-01] MEDS: LOPERAMIDE 2 MG CAP PO PRN (09:57)
--- NOTE | 2017-11-01 14:11 | P.DS ---
Providers Date of admission: 10/30/17 12:53 Expected date of discharge: 11/01/17 Attending physician: Angel Snell Consults: 10/29/17 10:28 Consult Physician Routine Consulting Provider: Angel Ortiz Consult Reason/Comments: diarrhea Do you want consulting provider notified?: Yes 10/29/17 10:55 Consult Physician Routine Consulting Provider: Sameera Mccormack Consult Reason/Comments: + stool occult blood Do you want consulting provider notified?: Yes Primary care physician: Franklyn Marino [facility] Course: This is a 77-year-old female one of Dr. 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 Patient's last hospitalization was in January 2017 at which time she was treated for acute blood loss anemia with EGD finding only mild antral gastritis. Patient gives history that she has been under treatment with Dr. Marino for colitis and at that time she only had abdominal pain but no diarrhea. Patient was started on Cipro and Flagyl and completed a two-week course. She states she has had diarrhea since she's been started and also complaining of increased weakness which continued to get worse. Her abdomen is sore but she denies any significant pain. She then picked up another course of ciprofloxacin and Flagyl but 2 days ago she stopped taking it. She states she has been drinking 64 ounces of water. She denies any vomiting. She is only able to eat a small amount of food at a time. She came into [facility] emergency center for evaluation. Her vital signs were stable. Hemoglobin 10.2, white count was 6.4, creatinine 0.6. She underwent a CAT scan of the abdomen and pelvis that showed no acute findings. Her urinalysis was cloudy, leukoesterase large, WBC is greater than 182, WBC clumps occasional, squamous cells 7. Patient was started on ceftriaxone for urinary tract infection and admitted to the [facility] floor. Patient denies having any ear pain or burning with urination. He states this morning she was able to eat some scrambled eggs and afterwards she got up to the bathroom to urinate and it was the first time that she did not have a stool at the same time. Subsequently, consult placed with Dr. Ortiz from infectious disease. Patient has had ongoing problems with diarrhea with concern for C. difficile colitis. 10/30: Patient had stool that was dark red yesterday and this was sent for occult blood which came back positive. Patient is seen by Dr. Mccormack. She is complaining of headache for which Tylenol will be added. Patient has been seen by Dr. Ortiz with recommendations for no antibiotics at this time. C. difficile toxin has returned negative. Patient continues to have very poor oral intake and only eating a few bites. She will been started on IV fluids at 100 mL per hour. Anticipate possible discharge home tomorrow. 10/31: Patient continued to have diarrhea and Imodium was given last evening. Her last bowel movement was at 9:30 pm. She was able to eat cereal and banana. Plan to continue IVF for most of today and monitor over night and most likely discharge home tomorrow. 11/01: Patient has had no further episodes of diarrhea. She is tolerating her diet. Patient will be discharged home today in stable condition. Discharge diagnoses: 1. Bacteriuria without infection. 2. Recent treatment for colitis under the care of Dr. Marino. 3. Diarrhea secondary to recent antibiotics with history of C. difficile colitis status post fecal transplant. 4. Anemia of chronic disease. 5. History of SVT. 4. Hypertension and hypertensive cardiovascular disease. 5. Hyperlipidemia. 6. Moderate COPD. stable. 7. GERD. 8. Rheumatoid arthritis. Stable. 9. Hypothyroidism. 10. Depression, recurrent. Discharge plan: Return home Impression and plan of care have been directed as dictated by the signing physician. Domenica Reed nurse practitioner acting as scribe for signing physician. Patient Condition at Discharge: Good Plan - Discharge Summary Discharge Rx Participant: No New Discharge Prescriptions: New Lactobacillus Acidoph & Bulgar [Lactinex] 1 each PO TID packet Loperamide [Imodium] 2 mg PO QID PRN cap PRN Reason: Diarrhea Pantoprazole [Protonix] 40 mg PO AC-BRKFST tablet.dr Lee Levothyroxine Sodium [Synthroid] 50 mcg PO QAM Aspirin 81 mg PO QAM Furosemide [Lasix] 40 mg PO QAM Atenolol 100 mg PO HS ALPRAZolam [Xanax] 2 mg PO Q8H PRN PRN Reason: Anxiety DULoxetine HCL [Cymbalta] 60 mg PO DAILY Loratadine [Claritin] 10 mg PO DAILY tab Zolpidem [Ambien] 10 mg PO HS PRN PRN Reason: Insomnia Tofacitinib Citrate [Xeljanz] 5 mg PO DAILY Multivit-Min/Iron/Folic/Lutein [Centrum Silver Women Tablet] 1 tab PO DAILY Disopyramide Phosphate [Norpace Cr] 150 mg PO BID Citalopram Hydrobromide [CeleXA] 40 mg PO DAILY traMADol HCl [Ultram] 50 mg PO TID PRN PRN Reason: Pain Discharge Medication List Levothyroxine Sodium [Synthroid] 50 mcg PO QAM 03/03/14 [History] Aspirin 81 mg PO QAM 07/29/14 [History] Atenolol 100 mg PO HS 09/25/15 [History] Furosemide [Lasix] 40 mg PO QAM 09/25/15 [History] ALPRAZolam [Xanax] 2 mg PO Q8H PRN 07/17/16 [History] DULoxetine HCL [Cymbalta] 60 mg PO DAILY 07/17/16 [History] Loratadine [Claritin] 10 mg PO DAILY tab 01/26/17 [Rx] Citalopram Hydrobromide [CeleXA] 40 mg PO DAILY 10/28/17 [History] Disopyramide Phosphate [Norpace Cr] 150 mg PO BID 10/28/17 [History] Multivit-Min/Iron/Folic/Lutein [Centrum Silver Women Tablet] 1 tab PO DAILY [History] Tofacitinib Citrate [Xeljanz] 5 mg PO DAILY 10/28/17 [History] Zolpidem [Ambien] 10 mg PO HS PRN 10/28/17 [History] traMADol HCl [Ultram] 50 mg PO TID PRN 10/28/17 [History] Lactobacillus Acidoph & Bulgar [Lactinex] 1 each PO TID packet 11/01/17 [Rx] Loperamide [Imodium] 2 mg PO QID PRN cap 11/01/17 [Rx] Pantoprazole [Protonix] 40 mg PO AC-BRKFST tablet. 11/01/17 [Rx] Follow up Appointment(s)/Referral(s): Franklyn Marino DO [Primary Care Provider] - 11/11/17 4:00 pm Patient Instructions/Handouts: Urinary Tract Infection in Women (DC), Weakness (GEN)
== END 2017-11-01 14:10 | disposition home or self-care (01) | DRG 394 ==
LOC: EC 16:47 → 5MS5E 21:27 → OBSVTOIN 10-30 12:53
PROVIDERS: ADMIT Internal Medicine Geriatric Medicine; ATTEND Internal Medicine Geriatric Medicine
DX: K52.1 Toxic gastroenteritis and colitis (principal); I48.92 Unspecified atrial flutter; F33.9 Major depressive disorder, recurrent, unspecified; D63.8 Anemia in other chronic diseases classified elsewhere; J44.9 Chronic obstructive pulmonary disease, unspecified; I11.9 Hypertensive heart disease without heart failure; I34.1 Nonrheumatic mitral (valve) prolapse; I48.91 Unspecified atrial fibrillation; M06.9 Rheumatoid arthritis, unspecified; E03.9 Hypothyroidism, unspecified; E78.5 Hyperlipidemia, unspecified; F17.200 Nicotine dependence, unspecified, uncomplicated; F41.9 Anxiety disorder, unspecified; T36.95XA Adverse effect of unspecified systemic antibiotic, initial encounter; K21.9 Gastro-esophageal reflux disease without esophagitis; R19.5 Other fecal abnormalities; R51 Headache; R32 Unspecified urinary incontinence; E66.9 Obesity, unspecified; Z68.31 Body mass index [BMI] 31.0-31.9, adult; Z79.82 Long term (current) use of aspirin; Z79.899 Other long term (current) drug therapy; Z79.890 Hormone replacement therapy; Z88.1 Allergy status to other antibiotic agents; Z88.2 Allergy status to sulfonamides; Z88.7 Allergy status to serum and vaccine; Z88.8 Allergy status to other drugs, medicaments and biological substances; Z91.048 Other nonmedicinal substance allergy status; Z96.653 Presence of artificial knee joint, bilateral; Z96.643 Presence of artificial hip joint, bilateral; Z96.611 Presence of right artificial shoulder joint; Z90.710 Acquired absence of both cervix and uterus; Z90.49 Acquired absence of other specified parts of digestive tract; Z86.19 Personal history of other infectious and parasitic diseases; Z98.42 Cataract extraction status, left eye; Z98.41 Cataract extraction status, right eye; Z96.1 Presence of intraocular lens; Z80.1 Family history of malignant neoplasm of trachea, bronchus and lung; Z82.3 Family history of stroke; Z82.49 Family history of ischemic heart disease and other diseases of the circulatory system; Z82.5 Family history of asthma and other chronic lower respiratory diseases; Y92.009 Unspecified place in unspecified non-institutional (private) residence as the place of occurrence of the external cause
CPT/HCPCS: 36415; 74176; 80053; 81001; 82272; 85025; 85027; 87086; 87324; 99285

== ENCOUNTER 2018-01-13 19:46 | Inpatient (IN) | payer MEDICARE ==
[2018-01-13] MEDS ORDERED: SODIUM CHLORIDE 0.9% 1,000 ML IV STA (19:48)
[2018-01-13 20:39] LABS: Creatine Kinase 29 U/L (30-135)
[2018-01-13 20:41] LABS: Albumin 3.3 g/dL (3.5-5.0); Anisocytosis Slight; Calcium 8.5 mg/dL (8.4-10.2); Hypochromasia Marked; INR 1.1 (<1.2); MCH 22.7 pg (25.0-35.0); MCV 84.1 fL (80.0-100.0); Magnesium 1.8 mg/dL (1.6-2.3); Mean Platelet Volume 7.2; Platelet Count 334 k/uL (150-450); Poikilocytosis Moderate; Potassium 3.2 mmol/L (3.5-5.1); RBC 2.12 m/uL (3.80-5.40); RDW 17.6 % (11.5-15.5); Total Bilirubin 0.3 mg/dL (0.2-1.3); Total Protein 5.9 g/dL (6.3-8.2); WBC 6.8 k/uL (3.8-10.6)
[2018-01-13 20:48] LABS: HGB 4.8 gm/dL (11.4-16.0)
[2018-01-13 20:49] LABS: HCT 17.8 % (34.0-46.0)
[2018-01-13 20:52] LABS: Creatine Kinase MB 0.5 ng/mL (0.0-2.4); Troponin I <0.012 ng/mL (0.000-0.034)
[2018-01-13 20:58] LABS: Partial Thromboplastin Time 19.4 sec (22.0-30.0)
[2018-01-13 21:15] LABS: Anisocytosis (M) Present; Hypochromasia (M) Present; Lymphocytes # (M) 1.02 k/uL (1.0-4.8); Monocytes # (M) 0.75 k/uL (0-1.0); Neutrophils # (M) 5.03 k/uL (1.3-7.7); Neutrophils % (M) 74 %; Nucleated Red Blood Cells 0 /100 WBC (0-0); Poikilocytosis (M) Present; Polychromasia Present; Total Cells Counted 100
--- NOTE | 2018-01-13 21:33 | ED ---
Recheck HPI - General Chief Complaint: Recheck/Abnormal Lab/Rx Stated Complaint: Low hemoglobin Time Seen by Provider: 01/13/18 19:47 Source: patient, RN notes reviewed, old records reviewed Mode of arrival: EMS Limitations: no limitations - History of Present Illness Initial Comments: This is a 77-year-old female the ER for evaluation. Patient states she presented today for evaluation of low hemoglobin. States she was seen an outpatient for continued evaluation of significant infection. She's been feeling increasingly weak lately with difficulty getting around secondary to shortness of breath. Patient states she has history of GI bleed with history of low hemoglobin. Patient has not passed out or is not feeling she cannot pass out but does feel significantly weak MD Complaint: abnormal lab (Anemia) -: month(s) Initial Visit For: other (Weakness) Returns Today for: Called Because of Abnormal Lab/Test Context: called for abnormal lab result Associated Symptoms: shortness of breath, malaise - Related Data Home Medications Medication Instructions Recorded Confirmed Levothyroxine Sodium [Synthroid] 50 mcg PO QAM 03/03/14 01/13/18 Aspirin 81 mg PO QAM 07/29/14 01/13/18 Atenolol 100 mg PO HS 09/25/15 01/13/18 Furosemide [Lasix] 40 mg PO QAM 09/25/15 01/13/18 ALPRAZolam [Xanax] 2 mg PO Q8H PRN 07/17/16 01/13/18 Disopyramide Phosphate [Norpace Cr] 150 mg PO BID 10/28/17 01/13/18 Multivit-Min/Iron/Folic/Lutein 1 tab PO DAILY 10/28/17 01/13/18 [Centrum Silver Women Tablet] Zolpidem [Ambien] 10 mg PO HS PRN 10/28/17 01/13/18 traMADol HCl [Ultram] 50 mg PO TID PRN 10/28/17 01/13/18 Pantoprazole [Protonix] 40 mg PO QAM 01/13/18 01/13/18 Previous Rx's Medication Instructions Recorded Loratadine [Claritin] 10 mg PO DAILY tab 01/26/17 Cholestyramine (with Sugar) 4 gm PO AC-BID #20 packet 12/20/17 [Questran Packet] Allergies Allergy/AdvReac Type Severity Reaction Status Date / Time adhesive tape Allergy Rash/Hives Verified 01/13/18 20:30 Influenza Virus Vaccines Allergy "MAKES HER Verified 01/13/18 20:30 FEEL SICK" Sulfa (Sulfonamide Allergy Rash/Hives Verified 01/13/18 20:30 Antibiotics) amoxicillin trihydrate AdvReac Diarrhea Verified 01/13/18 20:30 [From Augmentin] ciprofloxacin [From Cipro] AdvReac Unknown Verified 01/13/18 20:30 metronidazole [From Flagyl] AdvReac Unknown Verified 01/13/18 20:30 potassium clavulanate AdvReac Diarrhea Verified 01/13/18 20:30 [From Augmentin] quinidine AdvReac BLOOD CLOTS Verified 01/13/18 20:30 Review of Systems ROS Statement: Those systems with pertinent positive or pertinent negative responses have been documented in the HPI. ROS Other: All systems not noted in ROS Statement are negative. Past Medical History Past Medical History: Atrial Fibrillation, Atrial Flutter, GERD/Reflux, Hyperlipidemia, Hypertension, Mitral Valve Prolapse (MVP), Rheumatoid Arthritis (RA), Thyroid Disorder Additional Past Medical History / Comment(s): OTHER HX: 03/06/14, 03/30/14, , 07/29/14 with CDIFF colitis, HYPOTHYROID, MVP, urinary incontinence, PROLAPSED MITRAL VALVE- NO PROBLEMS FOR 30 YRS. History of Any Multi-Drug Resistant Organisms: C-DIFF Date of last positivie culture/infection: 11/29/2017 per pt MDRO Source:: none Past Surgical History: Adenoidectomy, Cholecystectomy, Hysterectomy, Joint Replacement, Orthopedic Surgery, Tonsillectomy Additional Past Surgical History / Comment(s): 02/18/16 total R hip arthroplasty. Other surgical HX: BILATERAL KNEE REPLACEMENT (2003-RIGHT & 2005 - LEFT); LOWER LUMBAR LAMINECTOMYL4-L5 (2007); LEFT HIP REPLACEMENT (2012) ; RIGHT SHOULDER REPLACEMENT (2008), left total knee arthroplasty revision. Bilateral cataracts with lens implants. FECALCAL TRASPLANT TX FOR C-DIFF three times. Past Anesthesia/Blood Transfusion Reactions: No Reported Reaction Additional Past Anesthesia/Blood Transfusion Reaction / Comment(s): blood transfusion in past no reactions Past Psychological History: Anxiety, Depression Smoking Status: Current every day smoker Past Alcohol Use History: None Reported Past Drug Use History: None Reported - Past Family History Mother Family Medical History: Cancer Additional Family Medical History / Comment(s): Mother at age 60 with history of emphysema and lung cancer. Father Family Medical History: CVA/TIA Additional Family Medical History / Comment(s): Father at age 74 with problems with his larynx. Sister(s) Family Medical History: Unable to Obtain Daughter(s) Family Medical History: COPD, Myocardial Infarction ([place]) Additional Family Medical History / Comment(s): Mother at age 60 yrs of emphysema/lung CA Son(s) Family Medical History: Myocardial Infarction ([place]) Additional Family Medical History / Comment(s): Father at age 74yrs with "CVA of his larynx" General Exam Limitations: no limitations General appearance: alert, in no apparent distress Head exam: Present: atraumatic, normocephalic, normal inspection Eye exam: Present: normal appearance, PERRL, EOMI. Absent: scleral icterus, conjunctival injection, periorbital swelling ENT exam: Present: normal exam, mucous membranes moist Neck exam: Present: normal inspection. Absent: tenderness, meningismus, lymphadenopathy Respiratory exam: Present: normal lung sounds bilaterally. Absent: respiratory distress, wheezes, rales, rhonchi, stridor Cardiovascular Exam: Present: regular rate, normal rhythm, normal heart sounds. Absent: systolic murmur, diastolic murmur, rubs, gallop, clicks GI/Abdominal exam: Present: soft, normal bowel sounds. Absent: distended, tenderness, guarding, rebound, rigid Extremities exam: Present: normal inspection, full ROM, normal capillary refill. Absent: tenderness, pedal edema, joint swelling, calf tenderness Back exam: Present: normal inspection Neurological exam: Present: alert, oriented X3, CN II-XII intact Psychiatric exam: Present: normal affect, normal mood Skin exam: Present: warm, dry, intact, normal color. Absent: rash Course Vital Signs 01/13/18 01/13/18 19:49 21:51 Temperature 97.3 F L 96.6 F L Pulse Rate 64 72 Respiratory 18 18 Rate Blood Pressure 106/52 105/51 O2 Sat by Pulse 97 95 Oximetry - Reevaluation(s) Reevaluation #1: 01/13/18 22:07 Patient's medical record and prior hemoglobin is reviewed Reevaluation #2: 01/13/18 22:07 Patient states she feels still feels weak and dizzy Medical Decision Making - Medical Decision Making 77 female the ER for evaluation positive GI bleed positive anemia. Patient be admitted for transfusion and monitoring of hemodynamic status - Lab Data Result diagrams: 01/13/18 20:11 01/13/18 20:11 Lab Results 01/13/18 01/13/18 01/13/18 Range/Units 20:11 20:11 20:11 WBC 6.8 (3.8-10.6) k/uL RBC 2.12 L (3.80-5.40) m/uL Hgb 4.8 L* (11.4-16.0) gm/dL Hct 17.8 L* (34.0-46.0) % MCV 84.1 (80.0-100.0) fL MCH 22.7 L (25.0-35.0) pg MCHC 27.0 L (31.0-37.0) g/dL RDW 17.6 H (11.5-15.5) % Plt Count 334 (150-450) k/uL Neutrophils % (Manual) 74 % Lymphocytes % (Manual) 15 % Monocytes % (Manual) 11 % Neutrophils # (Manual) 5.03 (1.3-7.7) k/uL Lymphocytes # (Manual) 1.02 (1.0-4.8) k/uL Monocytes # (Manual) 0.75 (0-1.0) k/uL Nucleated RBCs 0 (0-0) /100 WBC Manual Slide Review Performed Polychromasia Present Hypochromasia Marked Hypochromasia (manual) Present Poikilocytosis Moderate Poikilocytosis (manual Present Anisocytosis Slight Anisocytosis (manual) Present PT (9.0-12.0) sec INR (<1.2) APTT (22.0-30.0) sec Sodium 138 (137-145) mmol/L Potassium 3.2 L (3.5-5.1) mmol/L Chloride 105 (98-107) mmol/L Carbon Dioxide 23 (22-30) mmol/L Anion Gap 10 mmol/L BUN 11 (7-17) mg/dL Creatinine 0.81 (0.52-1.04) mg/dL Est GFR (CKD-EPI)AfAm 82 (>60 ml/min/1.73 sqM) Est GFR (CKD-EPI)NonAf 71 (>60 ml/min/1.73 sqM) Glucose 114 H (74-99) mg/dL Calcium 8.5 (8.4-10.2) mg/dL Magnesium 1.8 (1.6-2.3) mg/dL Total Bilirubin 0.3 (0.2-1.3) mg/dL AST 15 (14-36) U/L ALT 9 (9-52) U/L Alkaline Phosphatase 65 (38-126) U/L Total Creatine Kinase 29 L (30-135) U/L CK-MB (CK-2) 0.5 (0.0-2.4) ng/mL CK-MB (CK-2) Rel Index 1.7 Troponin I <0.012 (0.000-0.034) ng/mL Total Protein 5.9 L (6.3-8.2) g/dL Albumin 3.3 L (3.5-5.0) g/dL Crossmatch 01/13/18 01/13/18 Range/Units 20:11 20:11 WBC (3.8-10.6) k/uL RBC (3.80-5.40) m/uL Hgb (11.4-16.0) gm/dL Hct (34.0-46.0) % MCV (80.0-100.0) fL MCH (25.0-35.0) pg MCHC (31.0-37.0) g/dL RDW (11.5-15.5) % Plt Count (150-450) k/uL Neutrophils % (Manual) % Lymphocytes % (Manual) % Monocytes % (Manual) % Neutrophils # (Manual) (1.3-7.7) k/uL Lymphocytes # (Manual) (1.0-4.8) k/uL Monocytes # (Manual) (0-1.0) k/uL Nucleated RBCs (0-0) /100 WBC Manual Slide Review Polychromasia Hypochromasia Hypochromasia (manual) Poikilocytosis Poikilocytosis (manual Anisocytosis Anisocytosis (manual) PT 11.0 (9.0-12.0) sec INR 1.1 (<1.2) APTT 19.4 L (22.0-30.0) sec Sodium (137-145) mmol/L Potassium (3.5-5.1) mmol/L Chloride (98-107) mmol/L Carbon Dioxide (22-30) mmol/L Anion Gap mmol/L BUN (7-17) mg/dL Creatinine (0.52-1.04) mg/dL Est GFR (CKD-EPI)AfAm (>60 ml/min/1.73 sqM) Est GFR (CKD-EPI)NonAf (>60 ml/min/1.73 sqM) Glucose (74-99) mg/dL Calcium (8.4-10.2) mg/dL Magnesium (1.6-2.3) mg/dL Total Bilirubin (0.2-1.3) mg/dL AST (14-36) U/L ALT (9-52) U/L Alkaline Phosphatase (38-126) U/L Total Creatine Kinase (30-135) U/L CK-MB (CK-2) (0.0-2.4) ng/mL CK-MB (CK-2) Rel Index Troponin I (0.000-0.034) ng/mL Total Protein (6.3-8.2) g/dL Albumin (3.5-5.0) g/dL Crossmatch See Detail Critical Care Time Critical Care Time: Yes Total Critical Care Time: 31 Disposition Clinical Impression: GI bleeding, Weakness, Anemia Disposition: ADMITTED IP TO THIS [facility] Condition: Serious Is patient prescribed a controlled substance at d/c from ED?: No Referrals: Franklyn Marino DO [Primary Care Provider] - 1-2 days
[2018-01-13] MEDS ORDERED: POTASSIUM BICARBONATE/CIT AC 20 MEQ TABLET.EFF PO ONE (23:41)
[2018-01-13] MEDS: ALPRAZolam 1 MG TAB PO PRN (23:48)
[2018-01-14 00:12] LABS: Glucose,Whole Blood 105 mg/dL (75-99)
[2018-01-14 00:31] VITALS: BMI 33.9
[2018-01-14] MEDS: ZOLPIDEM 10 MG TAB PO PRN ×2 (02:06→21:38)
[2018-01-14 05:20] LABS: Anisocytosis Slight; Basophils % (A) 0 %; Eosinophils # (A) 0.1 k/uL (0-0.7); Eosinophils % (A) 2 %; Hypochromasia Marked; Lymphocytes # (A) 1.3 k/uL (1.0-4.8); Lymphocytes % (A) 20 %; MCH 20.4 pg (25.0-35.0); MCHC 24.8 g/dL (31.0-37.0); MCV 82.3 fL (80.0-100.0); Microcytosis Slight; Monocytes # (A) 0.4 k/uL (0-1.0); Monocytes % (A) 7 %; Neutrophils # (A) 4.4 k/uL (1.3-7.7); Neutrophils % (A) 69 %; Platelet Count 304 k/uL (150-450); Poikilocytosis Moderate; RDW 18.4 % (11.5-15.5); WBC 6.3 k/uL (3.8-10.6)
[2018-01-14 05:33] LABS: Sodium 137 mmol/L (137-145)
[2018-01-14 05:36] LABS: Anion Gap 6 mmol/L; Blood Urea Nitrogen 20 mg/dL (7-17); Calcium 7.7 mg/dL (8.4-10.2); Carbon Dioxide 22 mmol/L (22-30); Chloride 109 mmol/L (98-107); Glucose 99 mg/dL (74-99); Magnesium 1.7 mg/dL (1.6-2.3); Phosphorus 3.3 mg/dL (2.5-4.5); Potassium 3.6 mmol/L (3.5-5.1)
[2018-01-14 05:56] LABS: HCT 13.2 % (34.0-46.0); HGB 3.3 gm/dL (11.4-16.0)
[2018-01-14] MEDS ORDERED: Potassium Replacement Protocol 1 EACH MISC MISCELLANE PRN (06:39)
[2018-01-14] MEDS ORDERED: Magnesium Replacement Protocol 1 EACH MISC MISCELLANE PRN (06:40)
[2018-01-14] MEDS ORDERED: POTASSIUM CHLORIDE ER 20 MEQ TAB.ER PO SCH (07:00)
[2018-01-14] MEDS: MAGNESIUM SULFATE-D5W PMX 1 GM in DEXTROSE/WATER 1 100ML.BAG IVPB SCH ×2 (08:09→09:59)
[2018-01-14] MEDS: PANTOPRAZOLE 40 MG/10 ML VIAL IV SCH (08:10)
--- NOTE | 2018-01-14 09:22 | P.CNPUL ---
History of Present Illness Consult date: 01/14/18 Reason for consult: dyspnea, other Chief complaint: Weakness, profound anemia History of present illness: This is 77-year-old white female patient of Dr. Marino, who presented to the emergency department on 01/13/2018 at 1900 for evaluation of following weakness, shortness of breath, difficulty getting around. No syncope, no chest pain, patient has been having black stools, however she is on iron supplements, and thinks could be related to the iron supplements. 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, rheumatoid arthritis, hypothyroidism, anxiety, depression, nicotine dependence. Patient was recently hospitalized for persistent watery diarrhea, generalized weakness, and the C. diff culture was positive. During that admission hemoglobin was noted to be around 7.0, however patient denied any bloody stools. Infectious disease service was involved, patient was placed on deficit, Questran, her diarrhea had improved, and patient was discharged home on 12/20/2017. Patient's last EGD was done by Dr. Mccormack, on 01/22/2017 and and there was moderate large size hiatal hernia with no obvious erosions, mild antral gastritis. Last colonoscopy in November 2014 as part of the evaluation of severe symptomatic anemia was unremarkable. Patient had also at the capsule endoscopy in the past without finding any source of bleeding. Lab work revealed hemoglobin of 4.8, WBC of 6.8, platelet count of 334, PT was 11, INR was 1.1, sodium is 138, potassium is 3.2, the rest of her electrolytes and renal profile were all within normal limits, troponin and cardiac enzymes were negative 1, LFTs were within normal limits. Patient was hypotensive with a blood pressure of 88/48, she was given a fluid bolus of 500 mL of normal saline. Afebrile, currently on 2 L per nasal cannula and her pulse ox is 97%. Pulse ox on room air was noted to be around 88. She started on IV Protonix, IV normal saline at a rate of 100 ML per hour, patient is to receive packed red blood cell transfusion, but there is presence of antibodies which is delayed transfusion. Expected arrival of packed red blood cells is sometime today from [place]. Currently patient is hemodynamically stable, denies any chest pain. Blood pressures 93/53, remains sinus rhythm on the monitor, with a rate of 74 BPM, no arrhythmias. Mildly short of breath, but no acute distress. This morning's hemoglobin is 3.3, patient denies any ongoing diarrhea. Has not had a bowel movement since she came in. GI service has been consulted. Patient is being monitored in the intensive care unit. Review of Systems All systems: negative Constitutional: Denies chills, Denies fever Eyes: denies blurred vision, denies pain Ears, nose, mouth and throat: Denies headache, Denies sore throat Cardiovascular: Reports dyspnea on exertion, Denies chest pain, Denies shortness of breath Respiratory: Reports dyspnea, Denies cough Gastrointestinal: Reports abdominal pain, Denies diarrhea, Denies nausea, Denies vomiting Genitourinary: Denies dysuria, Denies hematuria Musculoskeletal: Denies myalgias Integumentary: Denies pruritus, Denies rash Neurological: Reports weakness, Denies numbness Psychiatric: Denies anxiety, Denies depression Endocrine: Reports weight change, Denies fatigue Past Medical History Past Medical History: Atrial Fibrillation, Atrial Flutter, GERD/Reflux, Hyperlipidemia, Hypertension, Mitral Valve Prolapse (MVP), Rheumatoid Arthritis (RA), Thyroid Disorder Additional Past Medical History / Comment(s): OTHER HX: 03/06/14, 03/30/14, , 07/29/14 with CDIFF colitis, HYPOTHYROID, MVP, urinary incontinence, PROLAPSED MITRAL VALVE- NO PROBLEMS FOR 30 YRS. History of Any Multi-Drug Resistant Organisms: C-DIFF Date of last positivie culture/infection: 11/29/2017 per pt MDRO Source:: none Past Surgical History: Adenoidectomy, Cholecystectomy, Hysterectomy, Joint Replacement, Orthopedic Surgery, Tonsillectomy Additional Past Surgical History / Comment(s): 02/18/16 total R hip arthroplasty. Other surgical HX: BILATERAL KNEE REPLACEMENT (2003-RIGHT & 2005 - LEFT); LOWER LUMBAR LAMINECTOMYL4-L5 (2007); LEFT HIP REPLACEMENT (2012) ; RIGHT SHOULDER REPLACEMENT (2008), left total knee arthroplasty revision. Bilateral cataracts with lens implants. FECALCAL TRASPLANT TX FOR C-DIFF three times. Past Anesthesia/Blood Transfusion Reactions: No Reported Reaction Additional Past Anesthesia/Blood Transfusion Reaction / Comment(s): blood transfusion in past no reactions Past Psychological History: Anxiety, Depression Additional Psychological History / Comment(s): pt lives in own home w/ a nephew , SHE IS A . CARES FOR HERSELF BUT DOES HAVE A CLEANING LADY ONCE A MONTH. STILL DRIVES, has an electric scooter/w/c. Smoking Status: Current every day smoker Past Alcohol Use History: None Reported Additional Past Alcohol Use History / Comment(s): has smoked since 195- 5 cig per day and stated she has no intention of quitting No alcohol use or abuse. No street drug use marijuana or medical marijuana use. Past Drug Use History: None Reported - Past Family History Mother Family Medical History: Cancer Additional Family Medical History / Comment(s): Mother at age 60 with history of emphysema and lung cancer. Father Family Medical History: CVA/TIA Additional Family Medical History / Comment(s): Father at age 74 with problems with his larynx. Sister(s) Family Medical History: Unable to Obtain Daughter(s) Family Medical History: COPD, Myocardial Infarction ([place]) Additional Family Medical History / Comment(s): Mother at age 60 yrs of emphysema/lung CA Son(s) Family Medical History: Myocardial Infarction ([place]) Additional Family Medical History / Comment(s): Father at age 74yrs with "CVA of his larynx" Medications and Allergies Home Medications Medication Instructions Recorded Confirmed Type Levothyroxine Sodium [Synthroid] 50 mcg PO QAM 03/03/14 01/13/18 History Aspirin 81 mg PO QAM 07/29/14 01/13/18 History Atenolol 100 mg PO HS 09/25/15 01/13/18 History Furosemide [Lasix] 40 mg PO QAM 09/25/15 01/13/18 History ALPRAZolam [Xanax] 2 mg PO Q8H PRN 07/17/16 01/13/18 History Loratadine [Claritin] 10 mg PO DAILY tab 01/26/17 01/13/18 Rx Disopyramide Phosphate [Norpace Cr] 150 mg PO BID 10/28/17 01/13/18 History Multivit-Min/Iron/Folic/Lutein 1 tab PO DAILY 10/28/17 01/13/18 History [Centrum Silver Women Tablet] Zolpidem [Ambien] 10 mg PO HS PRN 10/28/17 01/13/18 History traMADol HCl [Ultram] 50 mg PO TID PRN 10/28/17 01/13/18 History Cholestyramine (with Sugar) 4 gm PO AC-BID #20 packet 12/20/17 01/13/18 Rx [Questran Packet] Pantoprazole [Protonix] 40 mg PO QAM 01/13/18 01/13/18 History Allergies Allergy/AdvReac Type Severity Reaction Status Date / Time adhesive tape Allergy Rash/Hives Verified 01/13/18 20:30 Influenza Virus Vaccines Allergy "MAKES HER Verified 01/13/18 20:30 FEEL SICK" Sulfa (Sulfonamide Allergy Rash/Hives Verified 01/13/18 20:30 Antibiotics) amoxicillin trihydrate AdvReac Diarrhea Verified 01/13/18 20:30 [From Augmentin] ciprofloxacin [From Cipro] AdvReac Unknown Verified 01/13/18 20:30 metronidazole [From Flagyl] AdvReac Unknown Verified 01/13/18 20:30 potassium clavulanate AdvReac Diarrhea Verified 01/13/18 20:30 [From Augmentin] quinidine AdvReac BLOOD CLOTS Verified 01/13/18 20:30 Physical Exam Vitals: Vital Signs Temp Pulse Pulse Resp BP BP Pulse Ox 01/14/18 08:00 99.1 F 74 22 93/53 97 01/14/18 07:30 76 97 01/14/18 07:00 72 100 01/14/18 06:30 71 88 L 01/14/18 06:00 74 100 01/14/18 05:30 73 100 01/14/18 05:00 71 95/53 100 01/14/18 04:30 75 100 01/14/18 04:00 98.0 F 76 92/50 96 01/14/18 03:30 74 100 01/14/18 03:00 73 95 01/14/18 02:30 73 100 01/14/18 02:00 75 98/51 99 01/14/18 01:30 79 97 01/14/18 01:00 97.3 F L 77 18 85 L 01/14/18 00:30 73 100 01/14/18 00:10 79 01/13/18 23:47 74 16 92/49 100 01/13/18 23:14 70 16 88/48 99 01/13/18 22:53 97.3 F L 72 18 85/49 100 01/13/18 21:51 96.6 F L 72 18 105/51 95 01/13/18 19:49 97.3 F L 64 18 106/52 97 Intake and Output 01/13/18 01/14/18 01/14/18 22:59 06:59 14:59 Intake Total 500 Output Total 1325 Balance -825 Intake: IV 500 Sodium Chloride 0.9% 1, 500 000 ml @ 100 mls/hr IV . Q10H STA Rx#:[id number] Output: Urine 1325 Uretheral (Perez) 1000 Other: Voiding Method Indwelling Catheter Weight 95.3 kg GENERAL EXAM: Alert, irritable, 77-year-old white female comfortable in no apparent distress. HEAD: Normocephalic/atraumatic. EYES: Normal reaction of pupils, equal size. Conjunctiva pink, sclera white. NOSE: Clear with pink turbinates. THROAT: No erythema or exudates. NECK: No masses, no JVD, no thyroid enlargement, no adenopathy. CHEST: No chest wall deformity. Symmetrical expansion. LUNGS: Equal air entry with crackles over bilateral lower lobes posteriorly, no wheeze, rhonchi or dullness. CVS: Regular rate and rhythm, normal S1 and S2, no gallops, no murmurs, no rubs ABDOMEN: Soft, nontender. No hepatosplenomegaly, normal bowel sounds, no guarding or rigidity. EXTREMITIES: No clubbing, mild pretib edema, no cyanosis, 2+ pulses and upper and lower extremities. MUSCULOSKELETAL: Muscle strength and tone normal. SPINE: No scoliosis or deformity SKIN: No rashes CENTRAL NERVOUS SYSTEM: Alert and oriented -3. No focal deficits, tone is normal in all 4 extremities. PSYCHIATRIC: Alert and oriented -3. Appropriate affect. Intact judgment and insight. Results - Laboratory Findings CBC and BMP: 01/14/18 04:39 01/14/18 04:39 PT/INR, D-dimer PT 11.0 sec (9.0-12.0) 01/13/18 20:11 INR 1.1 (<1.2) 01/13/18 20:11 Abnormal lab findings: Abnormal Labs 01/13/18 01/13/18 01/13/18 20:11 20:11 20:11 RBC 2.12 L Hgb 4.8 L* Hct 17.8 L* MCH 22.7 L MCHC 27.0 L RDW 17.6 H APTT Potassium 3.2 L Chloride BUN Glucose 114 H POC Glucose (mg/dL) Calcium Total Creatine Kinase 29 L Total Protein 5.9 L Albumin 3.3 L Crossmatch 01/13/18 01/13/18 01/13/18 20:11 20:11 21:47 RBC Hgb Hct MCH MCHC RDW APTT 19.4 L Potassium Chloride BUN Glucose POC Glucose (mg/dL) Calcium Total Creatine Kinase Total Protein Albumin Crossmatch See Detail See Detail 01/14/18 01/14/18 01/14/18 00:10 04:39 04:39 RBC 1.60 L Hgb 3.3 L* D Hct 13.2 L* MCH 20.4 L MCHC 24.8 L RDW 18.4 H APTT Potassium Chloride 109 H BUN 20 H Glucose POC Glucose (mg/dL) 105 H Calcium 7.7 L Total Creatine Kinase Total Protein Albumin Crossmatch Assessment and Plan Plan: Assessment: #1. Acute on chronic symptomatic anemia, hemoglobin of 4.8 on presentation, currently down to 3.3. Patient presented with worsening weakness, difficulty ambulating, and shortness of breath. She is awaiting transfusion with packed red blood cells, has multiple antibodies. Awaiting input from GI service. Last EGD from 2016 showed moderate large size hiatal hernia without obvious erosions, mild antral gastritis. Patient is on iron supplements, and she is having black stools. Will obtain occult blood. Previous colonoscopy without evidence of colitis or colorectal neoplasia, endoscopy without any source of bleeding. #2. Recent hospitalization in December for recurrent C. diff colitis, patient was treated with Dificid, and Questran, improved and was discharged home on 01/2018 #3. Recurrent C. diff colitis, with history of fecal transplant #4. 30 pound weight loss per patient in the last 6 weeks related to lack of appetite, ongoing diarrhea, dehydration #5. History of atrial fibrillation, currently in sinus rhythm, patient is on baby aspirin only #6. History of supraventricular tachycardia #7. Mitral valve prolapse #8. Rheumatoid arthritis #9. Hypothyroidism #10. Nicotine dependence, 5 cigarettes a day #11. COPD, stable #12. Chronic back pain #13. Bilateral cataracts with lens implants #14. Anxiety and depression Plan: Continue IV fluids at 100 ML per hour, patient is awaiting the arrival of packed red blood cells from [place], he has multiple antibodies. For now patient remains hemodynamically stable. GI service has been consulted. Continue IV Protonix. We'll check stool for occult blood. We'll restart patient's Synthroid, Norpace, and Ultram. We'll continue close hemodynamic monitoring. Patient will remain in the intensive care unit. I performed a history & physical examination of the patient and discussed their management with my nurse practitioner, Shannan Vazquez. I reviewed the nurse practitioner's note and agree with the documented findings and plan of care. Lung sounds are some rales at bilateral lower lobes. The findings and the impression was discussed with the patient. I attest to the documentation by the nurse practitioner. Time with Patient: Greater than 30
--- NOTE | 2018-01-14 10:15 | P.CONS ---
History of Present Illness - Reason for Consult Consult date: 01/14/18 anemia Requesting physician: Shirley Weinberg - Chief Complaint Weakness lethargy - History of Present Illness 77-year-old female with a history of atrial fibrillation, iron deficiency anemia admitted with profound weakness lethargy. Admission hemoglobin 4.5 presently 3.3. Blood transfusion has been ordered however presently delayed secondary to an antibody issue. White count 6.3-6.8. MCV 84. Platelet 334. BUN 11. Creatinine 0.8. Consult requested for anemia. Previous hemoglobin over the last few months ranging between 7-8. Home medications include baby aspirin. No NSAIDs or alcohol. Denies overt bleeding such as hematemesis hematochezia or melena. Patient reports her bowel movements to be black in color the takes oral iron. EGD colonoscopy 2014 for evaluation of iron deficiency anemia was unremarkable. EGD January 2017 moderate-sized hiatal hernia no evidence of peptic ulcer disease. Capsule study has been performed within the last year into patient's memory was unremarkable as well. Presently she reports generalized pain arthritic in nature secondary to her rheumatoid arthritis. Hemodynamically stable. She was recently hospitalized at [facility] a month ago for C. diff colitis which she has previously received fecal transplant. She was discharged with Dificid and Questran. Review of Systems Constitutional: Denies fever, chills, sweats, weight gain, or loss. Profound lethargy weakness. HEENT: Negative for migraines, blurred vision or loss, earaches, drainage, tinnitus, oral mucosal lesions, dysphagia, or odynophagia. CARDIAC: Negative for chest pain, arrhythmias, or palpitation. RESPIRATORY: Admitted with shortness of breath, denies hemoptysis, cough, or sputum production. GI: See HPI for pertinent findings. : Negative for hematuria, urgency, frequency, polyuria, or dysuria. GYNc: Denies possibility of . Negative vaginal discharge. MUSCULOSKELETAL: Negative for muscle aches, swelling, arthritis, and arthralgias. NEUROLOGIC: Negative for stroke or TIA. ENDOCRINE: Negative for thyroid problems. SKIN: Negative for rash or itching. PSYCHIATRIC: Negative history for depression and anxiety Past Medical History Past Medical History: Atrial Fibrillation, Atrial Flutter, GERD/Reflux, Hyperlipidemia, Hypertension, Mitral Valve Prolapse (MVP), Rheumatoid Arthritis (RA), Thyroid Disorder Additional Past Medical History / Comment(s): OTHER HX: 11/25/14, 03/30/14, , 07/29/14 with CDIFF colitis, HYPOTHYROID, MVP, urinary incontinence, PROLAPSED MITRAL VALVE- NO PROBLEMS FOR 30 YRS. History of Any Multi-Drug Resistant Organisms: C-DIFF Year Discovered:: 11/29/2017 per pt MDRO Source:: none Past Surgical History: Adenoidectomy, Cholecystectomy, Hysterectomy, Joint Replacement, Orthopedic Surgery, Tonsillectomy Additional Past Surgical History / Comment(s): 02/18/16 total R hip arthroplasty. Other surgical HX: BILATERAL KNEE REPLACEMENT (2003-RIGHT & 2005 - LEFT); LOWER LUMBAR LAMINECTOMYL4-L5 (2007); LEFT HIP REPLACEMENT (2012) ; RIGHT SHOULDER REPLACEMENT (2008), left total knee arthroplasty revision. Bilateral cataracts with lens implants. FECALCAL TRASPLANT TX FOR C-DIFF three times. Past Anesthesia/Blood Transfusion Reactions: No Reported Reaction Additional Past Anesthesia/Blood Transfusion Reaction / Comm: blood transfusion in past no reactions Past Psychological History: Anxiety, Depression Additional Psychological History / Comment(s): pt lives in own home w/ a nephew , SHE IS A . CARES FOR HERSELF BUT DOES HAVE A CLEANING LADY ONCE A MONTH. STILL DRIVES, has an electric scooter/w/c. Smoking Status: Current every day smoker Past Alcohol Use History: None Reported Additional Past Alcohol Use History / Comment(s): has smoked since 1954- 5 cig per day and stated she has no intention of quitting No alcohol use or abuse. No street drug use marijuana or medical marijuana use. Past Drug Use History: None Reported - Past Family History Mother Family Medical History: Cancer Additional Family Medical History / Comment(s): Mother at age 60 with history of emphysema and lung cancer. Father Family Medical History: CVA/TIA Additional Family Medical History / Comment(s): Father at age 74 with problems with his larynx. Sister(s) Family Medical History: Unable to Obtain Daughter(s) Family Medical History: COPD, Myocardial Infarction ([place]) Additional Family Medical History / Comment(s): Mother at age 60 yrs of emphysema/lung CA Son(s) Family Medical History: Myocardial Infarction ([place]) Additional Family Medical History / Comment(s): Father at age 74yrs with "CVA of his larynx" Medications and Allergies Home Medications Medication Instructions Recorded Confirmed Type Levothyroxine Sodium [Synthroid] 50 mcg PO QAM 03/03/14 01/13/18 History Aspirin 81 mg PO QAM 07/29/14 01/13/18 History Atenolol 100 mg PO HS 09/25/15 01/13/18 History Furosemide [Lasix] 40 mg PO QAM 09/25/15 01/13/18 History ALPRAZolam [Xanax] 2 mg PO Q8H PRN 07/17/16 01/13/18 History Loratadine [Claritin] 10 mg PO DAILY tab 01/26/17 01/13/18 Rx Disopyramide Phosphate [Norpace Cr] 150 mg PO BID 10/28/17 01/13/18 History Multivit-Min/Iron/Folic/Lutein 1 tab PO DAILY 10/28/17 01/13/18 History [Centrum Silver Women Tablet] Zolpidem [Ambien] 10 mg PO HS PRN 10/28/17 01/13/18 History traMADol HCl [Ultram] 50 mg PO TID PRN 10/28/17 01/13/18 History Cholestyramine (with Sugar) 4 gm PO AC-BID #20 packet 12/20/17 01/13/18 Rx [Questran Packet] Pantoprazole [Protonix] 40 mg PO QAM 01/13/18 01/13/18 History Allergies Allergy/AdvReac Type Severity Reaction Status Date / Time adhesive tape Allergy Rash/Hives Verified 01/13/18 20:30 Influenza Virus Vaccines Allergy "MAKES HER Verified 01/13/18 20:30 FEEL SICK" Sulfa (Sulfonamide Allergy Rash/Hives Verified 01/13/18 20:30 Antibiotics) amoxicillin trihydrate AdvReac Diarrhea Verified 01/13/18 20:30 [From Augmentin] ciprofloxacin [From Cipro] AdvReac Unknown Verified 01/13/18 20:30 metronidazole [From Flagyl] AdvReac Unknown Verified 01/13/18 20:30 potassium clavulanate AdvReac Diarrhea Verified 01/13/18 20:30 [From Augmentin] quinidine AdvReac BLOOD CLOTS Verified 01/13/18 20:30 Physical Exam Vitals: Vital Signs Temp Pulse Pulse Resp BP BP Pulse Ox 01/14/18 10:00 77 22 100/50 95 01/14/18 09:30 75 22 100/50 99 01/14/18 09:00 69 97 01/14/18 08:30 74 85 L 01/14/18 08:00 99.1 F 74 22 93/53 97 01/14/18 07:30 76 97 01/14/18 07:00 72 100 01/14/18 06:30 71 88 L 01/14/18 06:00 74 100 01/14/18 05:30 73 100 01/14/18 05:00 71 95/53 100 01/14/18 04:30 75 100 01/14/18 04:00 98.0 F 76 92/50 96 01/14/18 03:30 74 100 01/14/18 03:00 73 95 01/14/18 02:30 73 100 01/14/18 02:00 75 98/51 99 01/14/18 01:30 79 97 01/14/18 01:00 97.3 F L 77 18 85 L 01/14/18 00:30 73 100 01/14/18 00:10 79 01/13/18 23:47 74 16 92/49 100 01/13/18 23:14 70 16 88/48 99 01/13/18 22:53 97.3 F L 72 18 85/49 100 01/13/18 21:51 96.6 F L 72 18 105/51 95 01/13/18 19:49 97.3 F L 64 18 106/52 97 Intake and Output 01/13/18 01/14/18 01/14/18 22:59 06:59 14:59 Intake Total 600 600 Output Total 1400 780 Balance -800 -180 Intake: IV 600 400 Sodium Chloride 0.9% 1, 600 400 000 ml @ 100 mls/hr IV . Q10H [facility] Rx#:[id number] Intake, IV Titration 200 Amount Magnesium Sulfate-D5w Pmx 200 1 gm In Dextrose/Water 1 100ml.bag @ 100 mls/hr IVPB Q1H [facility] Rx#: [id number] Output: Urine 1400 780 Uretheral (Perez) 1000 500 Other: Voiding Method Indwelling Catheter Indwelling Catheter Weight 95.3 kg General appearance: The patient is alert, oriented, in no acute distress. HET: Head is normocephalic and atraumatic. Pupils are equal and reactive. Oropharynx is clear without lesions. Neck: Supple without lymphadenopathy. Trachea midline. Heart: S1 S2. Regular rate and rhythm. Lungs: No crackles or wheezes are heard. Abdomen: Soft, very mild tenderness across the midabdomen, nondistended with bowel sounds. No peritoneal signs. No palpable organomegaly or masses. Extremities: Normal skin color and turgor. No cyanosis, rash, ulceration, clubbing, or edema. Radial and pedal pulses are 2/4 bilaterally. Neurological: No focal deficits. Strength and sensation are grossly intact. Results CBC & Chem 7: 01/14/18 04:39 01/14/18 04:39 Labs: Abnormal Lab Results - Last 24 Hours (Table) 01/13/18 01/13/18 01/13/18 Range/Units 20:11 20:11 20:11 RBC 2.12 L (3.80-5.40) m/uL Hgb 4.8 L* (11.4-16.0) gm/dL Hct 17.8 L* (34.0-46.0) % MCH 22.7 L (25.0-35.0) pg MCHC 27.0 L (31.0-37.0) g/dL RDW 17.6 H (11.5-15.5) % APTT (22.0-30.0) sec Potassium 3.2 L (3.5-5.1) mmol/L Chloride (98-107) mmol/L BUN (7-17) mg/dL Glucose 114 H (74-99) mg/dL POC Glucose (mg/dL) (75-99) mg/dL Calcium (8.4-10.2) mg/dL Total Creatine Kinase 29 L (30-135) U/L Total Protein 5.9 L (6.3-8.2) g/dL Albumin 3.3 L (3.5-5.0) g/dL Crossmatch 01/13/18 01/13/18 01/13/18 Range/Units 20:11 20:11 21:47 RBC (3.80-5.40) m/uL Hgb (11.4-16.0) gm/dL Hct (34.0-46.0) % MCH (25.0-35.0) pg MCHC (31.0-37.0) g/dL RDW (11.5-15.5) % APTT 19.4 L (22.0-30.0) sec Potassium (3.5-5.1) mmol/L Chloride (98-107) mmol/L BUN (7-17) mg/dL Glucose (74-99) mg/dL POC Glucose (mg/dL) (75-99) mg/dL Calcium (8.4-10.2) mg/dL Total Creatine Kinase (30-135) U/L Total Protein (6.3-8.2) g/dL Albumin (3.5-5.0) g/dL Crossmatch See Detail See Detail 01/14/18 01/14/18 01/14/18 Range/Units 00:10 04:39 04:39 RBC 1.60 L (3.80-5.40) m/uL Hgb 3.3 L* D (11.4-16.0) gm/dL Hct 13.2 L* (34.0-46.0) % MCH 20.4 L (25.0-35.0) pg MCHC 24.8 L (31.0-37.0) g/dL RDW 18.4 H (11.5-15.5) % APTT (22.0-30.0) sec Potassium (3.5-5.1) mmol/L Chloride 109 H (98-107) mmol/L BUN 20 H (7-17) mg/dL Glucose (74-99) mg/dL POC Glucose (mg/dL) 105 H (75-99) mg/dL Calcium 7.7 L (8.4-10.2) mg/dL Total Creatine Kinase (30-135) U/L Total Protein (6.3-8.2) g/dL Albumin (3.5-5.0) g/dL Crossmatch Assessment and Plan (1) Symptomatic anemia Narrative/Plan: 77-year-old female admitted with profound symptomatic iron deficiency anemia without overt bleeding. History of iron deficiency anemia with EGD 1 year ago reporting no evidence of peptic ulcer disease moderate-sized large hiatal hernia underlying Silviano erosions cannot be excluded, small bowel capsule endoscopy unremarkable as well. Colonoscopy 2015 unremarkable. Current Visit: Yes Status: Acute Code(s): D64.9 - ANEMIA, UNSPECIFIED SNOMED Code(s): 275214331 (2) Iron deficiency Current Visit: Yes Status: Acute Code(s): E61.1 - IRON DEFICIENCY SNOMED Code(s): 01191377 (3) History of Clostridium difficile colitis Current Visit: Yes Status: Acute Code(s): Z86.19 - PERSONAL HISTORY OF OTHER INFECTIOUS AND PARASITIC DISEASES SNOMED Code(s): 709160799 (4) Status post fecal microbiota transplant Current Visit: Yes Status: Acute Code(s): THW6151 - SNOMED Code(s): 687795598 Plan: 1. Liquid diet as tolerated. Blood transfusion as indicated. CBC monitoring. FOBT requested. Iron supplementation. 2. Inpatient endoscopic exams not planned at this time but contingent on clinical course. Thank you for this kind referral and the opportunity to participate in the care of your patient. This consultation was discussed with Dr. Bergman. The impression and plan of care have been directed as dictated.
--- NOTE | 2018-01-14 13:38 | XR ---
EXAMINATION TYPE: XR chest 1V portable DATE OF EXAM: 01/14/2018 COMPARISON: Prior chest x-ray 01/22/2017 HISTORY: Shortness of breath TECHNIQUE: Single frontal view of the chest is obtained. FINDINGS: Patient is rotated. Heart is enlarged. There is overlying cardiac lead and artifact. Patie nt is status post right shoulder arthroplasty. No pneumothorax or pleural effusion. Patchy basilar de nsity suspected, retrocardiac density with central lucency again noted compatible with hiatal hernia. Interstitium is mildly increased. Central vascularity shows a similar appearance. IMPRESSION: Findings are similar to prior exam. Cardiomegaly. Retrocardiac density may be related to hiatal hernia, there may be associated atelectasis, difficult to exclude pneumonia. Mild prominence of interstitium could be technical, correlate to exclude interstitial edema. Follow-up as indicated.
[2018-01-14 14:15] LABS: Polychromasia Present
[2018-01-14 14:17] LABS: Reticulocyte % 3.3 % (0.5-2.0)
--- NOTE | 2018-01-14 15:35 | P.HPIM ---
History of Present Illness H&P Date: 01/14/18 This is a 77-year-old female one of Dr. Marino's patients, she has a past medical history of hypertension, hypertensive cardiovascular disease , mitral valve prolapse, supraventricular tachycardia, rheumatoid arthritis, GERD, COPD, and recurrent C. diff colitis. 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 diff at [facility] 3. Patient have follow-up appointment with Dr. Oritz and was noted to be pale and weak at that time. He ordered outpatient laboratory studies which found a hemoglobin of 5.7 and patient was instructed to come into [facility] emergency center for evaluation where she was found to have a hemoglobin of 4.8 and this morning 3.3. Patient says only been admitted into intensive care unit and is starting transfusion for 1 unit of packed RBCs delayed due to antibodies. Patient is known to have chronic anemia and is followed up with Dr. Shelton in the past. She denies having any change in her stools but they are normally dark due to iron. GI and oncology on consult. Put pressures have been on the low side but not requiring vasopressors. Perez catheter has been placed. Review of Systems All systems: negative Constitutional: Reports fatigue, Reports weakness, Denies chills, Denies fever Eyes: denies blurred vision, denies pain Ears, nose, mouth and throat: Denies headache, Denies sore throat Cardiovascular: Denies chest pain, Denies lightheadedness, Denies shortness of breath, Denies syncope Respiratory: Denies cough, Denies cough with sputum, Denies dyspnea, Denies excessive sputum, Denies hemoptysis, Denies home oxygen, Denies wheezing Gastrointestinal: Denies abdominal pain, Denies diarrhea, Denies nausea, Denies vomiting Genitourinary: Denies dysuria, Denies hematuria Musculoskeletal: Denies myalgias Integumentary: Denies pruritus, Denies rash Neurological: Denies numbness, Denies weakness Psychiatric: Denies anxiety, Denies depression Endocrine: Denies fatigue, Denies weight change Past Medical History Past Medical History: Atrial Fibrillation, Atrial Flutter, GERD/Reflux, Hyperlipidemia, Hypertension, Mitral Valve Prolapse (MVP), Rheumatoid Arthritis (RA), Thyroid Disorder Additional Past Medical History / Comment(s): OTHER HX: 03/06/14, 03/30/14, , 07/29/14 with CDIFF colitis, HYPOTHYROID, MVP, urinary incontinence, PROLAPSED MITRAL VALVE- NO PROBLEMS FOR 30 YRS. History of Any Multi-Drug Resistant Organisms: C-DIFF Date of last positivie culture/infection: 11/29/2017 per pt MDRO Source:: none Past Surgical History: Adenoidectomy, Cholecystectomy, Hysterectomy, Joint Replacement, Orthopedic Surgery, Tonsillectomy Additional Past Surgical History / Comment(s): 02/18/16 total R hip arthroplasty. Other surgical HX: BILATERAL KNEE REPLACEMENT (2003-RIGHT & 2005 - LEFT); LOWER LUMBAR LAMINECTOMYL4-L5 (2007); LEFT HIP REPLACEMENT (2012) ; RIGHT SHOULDER REPLACEMENT (2008), left total knee arthroplasty revision. Bilateral cataracts with lens implants. FECALCAL TRASPLANT TX FOR C-DIFF three times. Past Anesthesia/Blood Transfusion Reactions: No Reported Reaction Additional Past Anesthesia/Blood Transfusion Reaction / Comment(s): blood transfusion in past no reactions Past Psychological History: Anxiety, Depression Additional Psychological History / Comment(s): pt lives in own home w/ a nephew , SHE IS A . CARES FOR HERSELF BUT DOES HAVE A CLEANING LADY ONCE A MONTH. STILL DRIVES, has an electric scooter/w/c. Smoking Status: Current every day smoker Past Alcohol Use History: None Reported Additional Past Alcohol Use History / Comment(s): has smoked since 1954- 5 cig per day and stated she has no intention of quitting No alcohol use or abuse. No street drug use marijuana or medical marijuana use. Past Drug Use History: None Reported - Past Family History Mother Family Medical History: Cancer Additional Family Medical History / Comment(s): Mother at age 60 with history of emphysema and lung cancer. Father Family Medical History: CVA/TIA Additional Family Medical History / Comment(s): Father at age 74 with problems with his larynx. Sister(s) Family Medical History: Unable to Obtain Daughter(s) Family Medical History: COPD, Myocardial Infarction ([place]) Additional Family Medical History / Comment(s): Mother at age 60 yrs of emphysema/lung CA Son(s) Family Medical History: Myocardial Infarction ([place]) Additional Family Medical History / Comment(s): Father at age 74yrs with "CVA of his larynx" Medications and Allergies Home Medications Medication Instructions Recorded Confirmed Type Levothyroxine Sodium [Synthroid] 50 mcg PO QAM 03/03/14 01/13/18 History Aspirin 81 mg PO QAM 07/29/14 01/13/18 History Atenolol 100 mg PO HS 09/25/15 01/13/18 History Furosemide [Lasix] 40 mg PO QAM 09/25/15 01/13/18 History ALPRAZolam [Xanax] 2 mg PO Q8H PRN 07/17/16 01/13/18 History Loratadine [Claritin] 10 mg PO DAILY tab 01/26/17 01/13/18 Rx Disopyramide Phosphate [Norpace Cr] 150 mg PO BID 10/28/17 01/13/18 History Multivit-Min/Iron/Folic/Lutein 1 tab PO DAILY 10/28/17 01/13/18 History [Centrum Silver Women Tablet] Zolpidem [Ambien] 10 mg PO HS PRN 10/28/17 01/13/18 History traMADol HCl [Ultram] 50 mg PO TID PRN 10/28/17 01/13/18 History Cholestyramine (with Sugar) 4 gm PO AC-BID #20 packet 12/20/17 01/13/18 Rx [Questran Packet] Pantoprazole [Protonix] 40 mg PO QAM 01/13/18 01/13/18 History Allergies Allergy/AdvReac Type Severity Reaction Status Date / Time adhesive tape Allergy Rash/Hives Verified 01/13/18 20:30 Influenza Virus Vaccines Allergy "MAKES HER Verified 01/13/18 20:30 FEEL SICK" Sulfa (Sulfonamide Allergy Rash/Hives Verified 01/13/18 20:30 Antibiotics) amoxicillin trihydrate AdvReac Diarrhea Verified 01/13/18 20:30 [From Augmentin] ciprofloxacin [From Cipro] AdvReac Unknown Verified 01/13/18 20:30 metronidazole [From Flagyl] AdvReac Unknown Verified 01/13/18 20:30 potassium clavulanate AdvReac Diarrhea Verified 01/13/18 20:30 [From Augmentin] quinidine AdvReac BLOOD CLOTS Verified 01/13/18 20:30 Physical Exam Vitals: Vital Signs Temp Pulse Pulse Resp BP BP Pulse Ox 10/05/18 09:30 75 22 100/50 99 01/14/18 09:00 69 97 01/14/18 08:30 74 85 L 01/14/18 08:00 99.1 F 74 22 93/53 97 01/14/18 07:30 76 97 01/14/18 07:00 72 100 01/14/18 06:30 71 88 L 01/14/18 06:00 74 100 01/14/18 05:30 73 100 01/14/18 05:00 71 95/53 100 01/14/18 04:30 75 100 01/14/18 04:00 98.0 F 76 92/50 96 01/14/18 03:30 74 100 01/14/18 03:00 73 95 01/14/18 02:30 73 100 01/14/18 02:00 75 98/51 99 01/14/18 01:30 79 97 01/14/18 01:00 97.3 F L 77 18 85 L 01/14/18 00:30 73 100 01/14/18 00:10 79 01/13/18 23:47 74 16 92/49 100 01/13/18 23:14 70 16 88/48 99 01/13/18 22:53 97.3 F L 72 18 85/49 100 01/13/18 21:51 96.6 F L 72 18 105/51 95 01/13/18 19:49 97.3 F L 64 18 106/52 97 Intake and Output 01/13/18 01/14/18 01/14/18 22:59 06:59 14:59 Intake Total 500 Output Total 1325 500 Balance -825 -500 Intake: IV 500 Sodium Chloride 0.9% 1, 500 000 ml @ 100 mls/hr IV . Q10H [facility] Rx#:[id number] Output: Urine 1325 500 Uretheral (Perez) 1000 500 Other: Voiding Method Indwelling Catheter Indwelling Catheter Weight 95.3 kg Gen: This is a obese 77-year-old female. She is in bed and appears to be in no acute distress. HEENT: Head is atraumatic, normocephalic. Pupils equal, round. Sclerae is anicteric. NECK: Supple. No JVD. No lymphadenopathy. No thyromegaly. LUNGS: Clear to auscultation. No wheezes or rhonchi. No intercostal retractions. HEART: Regular rate and rhythm. Systolic murmur. ABDOMEN: Soft. Bowel sounds are present. No masses. No tenderness. EXTREMITIES: No pedal edema. No calf tenderness. NEUROLOGICAL: Patient is awake, alert and oriented x3. Cranial nerves 2 through 12 are grossly intact. Results CBC & Chem 7: 01/14/18 04:39 01/14/18 04:39 Labs: Abnormal Lab Results - Last 24 Hours (Table) 01/13/18 01/13/18 01/13/18 Range/Units 20:11 20:11 20:11 RBC 2.12 L (3.80-5.40) m/uL Hgb 4.8 L* (11.4-16.0) gm/dL Hct 17.8 L* (34.0-46.0) % MCH 22.7 L (25.0-35.0) pg MCHC 27.0 L (31.0-37.0) g/dL RDW 17.6 H (11.5-15.5) % APTT (22.0-30.0) sec Potassium 3.2 L (3.5-5.1) mmol/L Chloride (98-107) mmol/L BUN (7-17) mg/dL Glucose 114 H (74-99) mg/dL POC Glucose (mg/dL) (75-99) mg/dL Calcium (8.4-10.2) mg/dL Total Creatine Kinase 29 L (30-135) U/L Total Protein 5.9 L (6.3-8.2) g/dL Albumin 3.3 L (3.5-5.0) g/dL Crossmatch 01/13/18 01/13/18 01/13/18 Range/Units 20:11 20:11 21:47 RBC (3.80-5.40) m/uL Hgb (11.4-16.0) gm/dL Hct (34.0-46.0) % MCH (25.0-35.0) pg MCHC (31.0-37.0) g/dL RDW (11.5-15.5) % APTT 19.4 L (22.0-30.0) sec Potassium (3.5-5.1) mmol/L Chloride (98-107) mmol/L BUN (7-17) mg/dL Glucose (74-99) mg/dL POC Glucose (mg/dL) (75-99) mg/dL Calcium (8.4-10.2) mg/dL Total Creatine Kinase (30-135) U/L Total Protein (6.3-8.2) g/dL Albumin (3.5-5.0) g/dL Crossmatch See Detail See Detail 01/14/18 01/14/18 01/14/18 Range/Units 00:10 04:39 04:39 RBC 1.60 L (3.80-5.40) m/uL Hgb 3.3 L* D (11.4-16.0) gm/dL Hct 13.2 L* (34.0-46.0) % MCH 20.4 L (25.0-35.0) pg MCHC 24.8 L (31.0-37.0) g/dL RDW 18.4 H (11.5-15.5) % APTT (22.0-30.0) sec Potassium (3.5-5.1) mmol/L Chloride 109 H (98-107) mmol/L BUN 20 H (7-17) mg/dL Glucose (74-99) mg/dL POC Glucose (mg/dL) 105 H (75-99) mg/dL Calcium 7.7 L (8.4-10.2) mg/dL Total Creatine Kinase (30-135) U/L Total Protein (6.3-8.2) g/dL Albumin (3.5-5.0) g/dL Crossmatch Thrombosis Risk Factor Assmnt - DVT/VTE Prophylaxis DVT/VTE Prophylaxis: Mechanical Prophylaxis ordered - Choose All That Apply Any of the Below Risk Factors Present?: No Other Risk Factors: Yes Each Risk Factor Represents 3 Points: Age 75 years or older Other congenital or acquired thrombophilia - If yes, enter type in comment: No Thrombosis Risk Factor Assessment Total Risk Factor Score: 3 Thrombosis Risk Factor Assessment Level: Moderate Risk Assessment and Plan Plan: 1. Profound anemia with history of anemia of chronic disease. No signs of bleeding. GI consult and oncology consult. Patient to be transfused 2 units of packed RBCs. Anemia workup. Repeat CBC this evening. 2. History of C.Difficile colitis status post fecal transplant at [facility]. Monitor closely. Avoid antibiotics. 3. History of SVT. Stable, Norpace 150 mg twice a day. 4. Hypertension and hypertensive cardiovascular disease. Continue Norpace. 5. GERD. Continue Protonix 40 mg IV twice daily 6. Rheumatoid arthritis. 7. Hypothyroidism. Continue levothyroxine 50 MCG daily 8. Generalized anxiety disorder. Continue Xanax 2 mg every 8 hours as needed. 9. DVT prophylaxis. SCDs and TIMOTEO hose 10. GI prophylaxis. Protonix 40 mg twice daily. Patient will be admitted to the hospital for a minimum of 2 night stay. Discharge plan: Most likely return home The above impression and plan of care have been discussed and directed by signing physician. Domenica Reed nurse practitioner acting as scribe for signing physician.
[2018-01-14] MEDS ORDERED: diphenhydrAMINE 50 MG/ML 1 ML VIAL IVP STA (15:43)
[2018-01-14] MEDS ORDERED: ACETAMINOPHEN TAB 325 MG TAB PO STA (15:43)
[2018-01-14 17:45] LABS: Anisocytosis Slight; HCT 22.7 % (34.0-46.0); Hypochromasia Marked; MCHC 29.5 g/dL (31.0-37.0); Mean Platelet Volume 8.2; Platelet Count 305 k/uL (150-450); Poikilocytosis Marked; RBC 2.58 m/uL (3.80-5.40); RDW 18.5 % (11.5-15.5); WBC 9.5 k/uL (3.8-10.6)
[2018-01-14 17:46] LABS: HGB 6.7 gm/dL (11.4-16.0); MCV 88.1 fL (80.0-100.0)
[2018-01-14] MEDS: traMADol 50 MG TAB PO PRN (18:15)
[2018-01-14 19:46] LABS: Iron Saturation 3.57 (12.00-45.00)
--- NOTE | 2018-01-14 21:14 | P.CONS ---
History of Present Illness - Reason for Consult Consult date: 01/14/18 Severe anemia with iron deficiency - History of Present Illness The patient is a 77-year-old white female, with multiple medical problems and complicated past medical history. She has a long-standing history of anemia, dating back to at least early 2014. She has had very severe drops in hemoglobin intermittently since that time, including 5.8 in 08/24, 6.3 in 12/26, and 5.9 in 01/26. She has apparently seen Dr. Shelton in the past, though those records are not available to me presently. She has had an EGD and colonoscopy in 2014 that were apparently negative. She also had a capsule endoscopy in 2015 that was negative. EGD in 01/26 was also negative. She has required blood transfusions intermittently. She has been on oral iron for at least 6 months. She has not noted any overt bleeding. She was sent in by her primary care physician because of a hemoglobin of 4.5 and on outpatient testing, associated with marked weakness, shortness of breath on exertion and some dizziness on exertion. This had been progressive over the past several days. Blood transfusion was ordered but could not be started immediately as she has antibodies. Hemoglobin in the meantime declined to 3.3. Consult was therefore placed a further evaluation and recommendations. She has noted black stools because of oral iron but no overt bleeding. 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 She has been on antibiotics chronically. Review of Systems Constitutional: Reports chills, Reports fatigue, Reports weakness Eyes: denies blurred vision, denies pain Ears: deny: decreased hearing, ear discharge, earache, tinnitus Ears, nose, mouth and throat: Denies headache, Denies sore throat Cardiovascular: Reports dyspnea on exertion, Reports rapid heart beat, Reports shortness of breath Respiratory: Reports dyspnea Gastrointestinal: Reports as per HPI Genitourinary: Denies dysuria, Denies hematuria Menstruation: Reports postmenopausal Musculoskeletal: Reports muscle weakness Integumentary: Denies pruritus, Denies rash Neurological: Reports weakness Psychiatric: Denies anxiety, Denies depression Endocrine: Reports fatigue, Denies weight change Hematologic/Lymphatic: Reports as per HPI Past Medical History Past Medical History: Atrial Fibrillation, Atrial Flutter, GERD/Reflux, Hyperlipidemia, Hypertension, Mitral Valve Prolapse (MVP), Rheumatoid Arthritis (RA), Thyroid Disorder Additional Past Medical History / Comment(s): OTHER HX: 03/06/14, 03/30/14, , 07/29/14 with CDIFF colitis, HYPOTHYROID, MVP, urinary incontinence, PROLAPSED MITRAL VALVE- NO PROBLEMS FOR 30 YRS. History of Any Multi-Drug Resistant Organisms: C-DIFF Year Discovered:: 11/29/2017 per pt MDRO Source:: none Past Surgical History: Adenoidectomy, Cholecystectomy, Hysterectomy, Joint Replacement, Orthopedic Surgery, Tonsillectomy Additional Past Surgical History / Comment(s): 02/18/16 total R hip arthroplasty. Other surgical HX: BILATERAL KNEE REPLACEMENT (2003-RIGHT & 2005 - LEFT); LOWER LUMBAR LAMINECTOMYL4-L5 (2007); LEFT HIP REPLACEMENT (2012) ; RIGHT SHOULDER REPLACEMENT (2008), left total knee arthroplasty revision. Bilateral cataracts with lens implants. FECALCAL TRASPLANT TX FOR C-DIFF three times. Past Anesthesia/Blood Transfusion Reactions: No Reported Reaction Additional Past Anesthesia/Blood Transfusion Reaction / Comm: blood transfusion in past no reactions Past Psychological History: Anxiety, Depression Additional Psychological History / Comment(s): pt lives in own home w/ a nephew , SHE IS A . CARES FOR HERSELF BUT DOES HAVE A CLEANING LADY ONCE A MONTH. STILL DRIVES, has an electric scooter/w/c. Smoking Status: Current every day smoker Past Alcohol Use History: None Reported Additional Past Alcohol Use History / Comment(s): has smoked since 1954- 5 cig per day and stated she has no intention of quitting No alcohol use or abuse. No street drug use marijuana or medical marijuana use. Past Drug Use History: None Reported - Past Family History Mother Family Medical History: Cancer Additional Family Medical History / Comment(s): Mother at age 60 with history of emphysema and lung cancer. Father Family Medical History: CVA/TIA Additional Family Medical History / Comment(s): Father at age 74 with problems with his larynx. Sister(s) Family Medical History: Unable to Obtain Daughter(s) Family Medical History: COPD, Myocardial Infarction ([place]) Additional Family Medical History / Comment(s): Mother at age 60 yrs of emphysema/lung CA Son(s) Family Medical History: Myocardial Infarction ([place]) Additional Family Medical History / Comment(s): Father at age 74yrs with "CVA of his larynx" Medications and Allergies Home Medications Medication Instructions Recorded Confirmed Type Levothyroxine Sodium [Synthroid] 50 mcg PO QAM 03/03/14 01/13/18 History Aspirin 81 mg PO QAM 07/29/14 01/13/18 History Atenolol 100 mg PO HS 09/25/15 01/13/18 History Furosemide [Lasix] 40 mg PO QAM 09/25/15 01/13/18 History ALPRAZolam [Xanax] 2 mg PO Q8H PRN 07/17/16 01/13/18 History Loratadine [Claritin] 10 mg PO DAILY tab 01/26/17 01/13/18 Rx Disopyramide Phosphate [Norpace Cr] 150 mg PO BID 10/28/17 01/13/18 History Multivit-Min/Iron/Folic/Lutein 1 tab PO DAILY 10/28/17 01/13/18 History [Centrum Silver Women Tablet] Zolpidem [Ambien] 10 mg PO HS PRN 10/28/17 01/13/18 History traMADol HCl [Ultram] 50 mg PO TID PRN 10/28/17 01/13/18 History Cholestyramine (with Sugar) 4 gm PO AC-BID #20 packet 12/20/17 01/13/18 Rx [Questran Packet] Pantoprazole [Protonix] 40 mg PO QAM 01/13/18 01/13/18 History Allergies Allergy/AdvReac Type Severity Reaction Status Date / Time adhesive tape Allergy Rash/Hives Verified 01/13/18 20:30 Influenza Virus Vaccines Allergy "MAKES HER Verified 01/13/18 20:30 FEEL SICK" Sulfa (Sulfonamide Allergy Rash/Hives Verified 01/13/18 20:30 Antibiotics) amoxicillin trihydrate AdvReac Diarrhea Verified 01/13/18 20:30 [From Augmentin] ciprofloxacin [From Cipro] AdvReac Unknown Verified 01/13/18 20:30 metronidazole [From Flagyl] AdvReac Unknown Verified 01/13/18 20:30 potassium clavulanate AdvReac Diarrhea Verified 01/13/18 20:30 [From Augmentin] quinidine AdvReac BLOOD CLOTS Verified 01/13/18 20:30 Physical Exam Vitals: Vital Signs Temp Pulse Pulse Resp BP BP Pulse Ox 01/14/18 17:00 98 15 98/57 99 01/14/18 16:30 89 18 98 01/14/18 16:00 98.7 F 81 22 114/57 97 01/14/18 15:48 98.2 F 76 22 113/52 01/14/18 15:46 98.7 F 85 22 113/52 01/14/18 15:30 70 97 01/14/18 15:00 72 98 01/14/18 14:30 72 22 87 L 01/14/18 14:00 75 18 100/50 100 01/14/18 13:51 98.2 F 73 18 89/51 99 01/14/18 13:30 78 18 95 01/14/18 13:21 98.1 F 76 18 81/46 99 01/14/18 13:11 98.2 F 75 18 80/45 99 01/14/18 13:08 98.2 F 74 22 88/51 01/14/18 13:07 98.1 F 72 18 96/55 01/14/18 13:00 72 18 92/53 94 L 01/14/18 12:30 77 12 95 01/14/18 12:00 98.2 F 70 22 99/54 100 01/14/18 11:41 98.1 F 68 22 94/50 100 01/14/18 11:30 69 111/55 100 01/14/18 11:11 98.2 F 69 22 111/55 100 01/14/18 11:01 98.1 F 75 22 99/52 01/14/18 11:00 73 100 01/14/18 10:30 73 100 01/14/18 10:00 77 22 100/50 95 01/14/18 09:30 75 22 100/50 99 01/14/18 09:00 69 97 05 08:30 74 85 L 01/14/18 08:00 99.1 F 74 22 93/53 97 01/14/18 07:30 76 97 05 07:00 72 100 01/14/18 06:30 71 88 L 05 06:00 74 100 05 05:30 73 100 01/14/18 05:00 71 95/53 100 08/27 04:30 75 100 10/05/18 04:00 98.0 F 76 92/50 96 01/14/18 03:30 74 100 01/14/18 03:00 73 95 01/14/18 02:30 73 100 01/14/18 02:00 75 98/51 99 01/14/18 01:30 79 97 01/14/18 01:00 97.3 F L 77 18 85 L 01/14/18 00:30 73 100 01/14/18 00:10 79 01/13/18 23:47 74 16 92/49 100 01/13/18 23:14 70 16 88/48 99 01/13/18 22:53 97.3 F L 72 18 85/49 100 01/13/18 21:51 96.6 F L 72 18 105/51 95 01/13/18 19:49 97.3 F L 64 18 106/52 97 Intake and Output 01/14/18 01/14/18 01/14/18 06:59 14:59 22:59 Intake Total 600 1410 510 Output Total 1400 565 70 Balance -800 845 440 Intake: IV 600 900 200 Sodium Chloride 0.9% 1, 600 900 200 000 ml @ 100 mls/hr IV . Q10H [facility] Rx#:[id number] Intake, IV Titration 200 Amount Magnesium Sulfate-D5w Pmx 200 1 gm In Dextrose/Water 1 100ml.bag @ 100 mls/hr IVPB Q1H [facility] Rx#: [id number] Blood Product 310 310 Rc As-1 Unit 310 [id number] Rc As-1 Unit 0 310 [id number] Output: Urine 1400 565 70 Uretheral (Perez) 1000 Other: Voiding Method Indwelling Catheter Indwelling Catheter - Constitutional General appearance: mild distress (Due to new onset rigors) - EENT Eyes: EOMI, PERRLA ENT: hearing grossly normal, normal oropharynx - Neck Neck: no lymphadenopathy Thyroid: bilateral: normal size - Respiratory Respiratory: bilateral: CTA - Cardiovascular Rhythm: regular Heart sounds: normal: S1, S2 - Gastrointestinal General gastrointestinal: normal bowel sounds, soft - Integumentary Integumentary: normal - Neurologic Neurologic: CNII-XII intact - Musculoskeletal Musculoskeletal: generalized weakness, strength equal bilaterally - Psychiatric Psychiatric: A&O x's 3, appropriate affect Results CBC & Chem 7: 01/14/18 16:00 01/14/18 04:39 Labs: Abnormal Lab Results - Last 24 Hours (Table) 01/13/18 01/13/18 01/13/18 Range/Units 20:11 20:11 20:11 RBC 2.12 L (3.80-5.40) m/uL Hgb 4.8 L* (11.4-16.0) gm/dL Hct 17.8 L* (34.0-46.0) % MCH 22.7 L (25.0-35.0) pg MCHC 27.0 L (31.0-37.0) g/dL RDW 17.6 H (11.5-15.5) % Retic Count (0.5-2.0) % APTT (22.0-30.0) sec Potassium 3.2 L (3.5-5.1) mmol/L Chloride (98-107) mmol/L BUN (7-17) mg/dL Glucose 114 H (74-99) mg/dL POC Glucose (mg/dL) (75-99) mg/dL Calcium (8.4-10.2) mg/dL Total Creatine Kinase 29 L (30-135) U/L Total Protein 5.9 L (6.3-8.2) g/dL Albumin 3.3 L (3.5-5.0) g/dL Crossmatch 01/13/18 01/13/18 01/13/18 Range/Units 20:11 20:11 21:47 RBC (3.80-5.40) m/uL Hgb (11.4-16.0) gm/dL Hct (34.0-46.0) % MCH (25.0-35.0) pg MCHC (31.0-37.0) g/dL RDW (11.5-15.5) % Retic Count (0.5-2.0) % APTT 19.4 L (22.0-30.0) sec Potassium (3.5-5.1) mmol/L Chloride (98-107) mmol/L BUN (7-17) mg/dL Glucose (74-99) mg/dL POC Glucose (mg/dL) (75-99) mg/dL Calcium (8.4-10.2) mg/dL Total Creatine Kinase (30-135) U/L Total Protein (6.3-8.2) g/dL Albumin (3.5-5.0) g/dL Crossmatch See Detail See Detail 01/14/18 01/14/18 01/14/18 Range/Units 00:10 04:39 04:39 RBC 1.60 L (3.80-5.40) m/uL Hgb 3.3 L* D (11.4-16.0) gm/dL Hct 13.2 L* (34.0-46.0) % MCH 20.4 L (25.0-35.0) pg MCHC 24.8 L (31.0-37.0) g/dL RDW 18.4 H (11.5-15.5) % Retic Count (0.5-2.0) % APTT (22.0-30.0) sec Potassium (3.5-5.1) mmol/L Chloride 109 H (98-107) mmol/L BUN 20 H (7-17) mg/dL Glucose (74-99) mg/dL POC Glucose (mg/dL) 105 H (75-99) mg/dL Calcium 7.7 L (8.4-10.2) mg/dL Total Creatine Kinase (30-135) U/L Total Protein (6.3-8.2) g/dL Albumin (3.5-5.0) g/dL Crossmatch 01/14/18 Range/Units 04:39 RBC (3.80-5.40) m/uL Hgb (11.4-16.0) gm/dL Hct (34.0-46.0) % MCH (25.0-35.0) pg MCHC (31.0-37.0) g/dL RDW (11.5-15.5) % Retic Count 3.3 H (0.5-2.0) % APTT (22.0-30.0) sec Potassium (3.5-5.1) mmol/L Chloride (98-107) mmol/L BUN (7-17) mg/dL Glucose (74-99) mg/dL POC Glucose (mg/dL) (75-99) mg/dL Calcium (8.4-10.2) mg/dL Total Creatine Kinase (30-135) U/L Total Protein (6.3-8.2) g/dL Albumin (3.5-5.0) g/dL Crossmatch Comments: ECHO report , EGDs, colonoscopy , capsule endoscopy, pathology reports reviewed in EMR Chest x-ray: report reviewed CT scan - abdomen: report reviewed CT scan - pelvis: report reviewed Assessment and Plan (1) Anemia Narrative/Plan: This has been ongoing, with intermittent , severe drops, requiring transfusions. W/u is c/w iron deficiency, including most recent iron studies from 01/26 and this admission. She denied any h/o obvious bleeding. - At this it is likely that she has some component of chronic , low volume blood loss, related to small bowel AVMs and/or her colitis. In addition, she likely has reduced iron absortion due to her GI issues - Transfuse acutely to keep Hgb > 7 - Start Iv iron. I would recommend continued f/u as an outpt with IV iron as appropriate. PO iron does not appear to be effective. Current Visit: Yes Status: Acute Code(s): D64.9 - ANEMIA, UNSPECIFIED SNOMED Code(s): 963157501 Plan: Defer to the admitting service and other consultants for management of her other medical problems
[2018-01-14] MEDS: DISOPYRAMIDE 150 MG PO SCH (21:38)
[2018-01-14] MEDS: ALPRAZolam 1 MG TAB PO PRN (21:38)
[2018-01-15] MEDS: LEVOTHYROXINE 50 MCG TAB PO SCH (05:56)
[2018-01-15] MEDS: traMADol 50 MG TAB PO PRN ×3 (05:56→21:26)
[2018-01-15 06:29] LABS: Anisocytosis Slight; Basophils % (A) 0 %; Eosinophils # (A) 0.1 k/uL (0-0.7); Eosinophils % (A) 1 %; Hypochromasia Marked; Lymphocytes # (A) 0.8 k/uL (1.0-4.8); Lymphocytes % (A) 13 %; MCH 26.5 pg (25.0-35.0); MCHC 30.4 g/dL (31.0-37.0); MCV 87.1 fL (80.0-100.0); Mean Platelet Volume 6.9; Monocytes # (A) 0.4 k/uL (0-1.0); Monocytes % (A) 6 %; Neutrophils # (A) 4.9 k/uL (1.3-7.7); Neutrophils % (A) 78 %; Platelet Count 232 k/uL (150-450); Poikilocytosis Marked; RBC 2.03 m/uL (3.80-5.40); WBC 6.4 k/uL (3.8-10.6)
[2018-01-15 06:41] LABS: HCT 17.7 % (34.0-46.0); HGB 5.4 gm/dL (11.4-16.0)
[2018-01-15 06:55] LABS: Anion Gap 7 mmol/L; Blood Urea Nitrogen 8 mg/dL (7-17); Calcium 7.5 mg/dL (8.4-10.2); Carbon Dioxide 20 mmol/L (22-30); Chloride 113 mmol/L (98-107); Glucose 106 mg/dL (74-99); Magnesium 1.9 mg/dL (1.6-2.3); Potassium 3.2 mmol/L (3.5-5.1); Sodium 140 mmol/L (137-145)
[2018-01-15] MEDS: DISOPYRAMIDE 150 MG PO SCH ×2 (09:51→21:42)
--- NOTE | 2018-01-15 10:20 | P.PN ---
Subjective Progress Note Date: 01/15/18 Principal diagnosis: Profound anemia, weakness This is 77-year-old white female patient of Dr. Marino, who presented to the emergency department on 01/13/2018 at 1900 for evaluation of following weakness, shortness of breath, difficulty getting around. No syncope, no chest pain, patient has been having black stools, however she is on iron supplements, and thinks could be related to the iron supplements. Patient has an underlying history of anemia with multiple transfusions in the past, atrial fibrillation on baby aspirin, GERD/reflux, hypertension, hyperlipidemia, mitral valve prolapse, SVT, COPD, recurrent C. diff colitis with history of fecal transplant at [facility], rheumatoid arthritis, hypothyroidism, anxiety, depression, nicotine dependence. Patient was recently hospitalized for persistent watery diarrhea, generalized weakness, and the C. diff culture was positive. During that admission hemoglobin was noted to be around 7.0, however patient denied any bloody stools. Infectious disease service was involved, patient was placed on deficit, Questran, her diarrhea had improved, and patient was discharged home on 12/20/2017. Patient's last EGD was done by Dr. Mccormack, on 01/22/2017 and and there was moderate large size hiatal hernia with no obvious erosions, mild antral gastritis. Last colonoscopy in November 2014 as part of the evaluation of severe symptomatic anemia was unremarkable. Patient had also at the capsule endoscopy in the past without finding any source of bleeding. Lab work revealed hemoglobin of 4.8, WBC of 6.8, platelet count of 334, PT was 11, INR was 1.1, sodium is 138, potassium is 3.2, the rest of her electrolytes and renal profile were all within normal limits, troponin and cardiac enzymes were negative 1, LFTs were within normal limits. Patient was hypotensive with a blood pressure of 88/48, she was given a fluid bolus of 500 mL of normal saline. Afebrile, currently on 2 L per nasal cannula and her pulse ox is 97%. Pulse ox on room air was noted to be around 88. She started on IV Protonix, IV normal saline at a rate of 100 ML per hour, patient is to receive packed red blood cell transfusion, but there is presence of antibodies which is delayed transfusion. Expected arrival of packed red blood cells is sometime today from [place]. Currently patient is hemodynamically stable, denies any chest pain. Blood pressures 93/53, remains sinus rhythm on the monitor, with a rate of 74 BPM, no arrhythmias. Mildly short of breath, but no acute distress. This morning's hemoglobin is 3.3, patient denies any ongoing diarrhea. Has not had a bowel movement since she came in. GI service has been consulted. Patient is being monitored in the intensive care unit. The patient was seen again today 01/15/2018 in follow-up in the intensive care unit. She remains awake, alert in no no acute distress. She is status post 2 units of packed red blood cells with a hemoglobin of 5.4. 2 more units are pending. She is also receiving IV iron. She denies any worsening shortness of breath, cough or congestion. No dizziness or lightheadedness. No palpitations or chest pain. She is currently afebrile. O2 saturations in the 90s on room air. She is maintaining mean arterial pressures greater than 60. Currently not requiring pressor support. She remains in a positive balance. She has been seen by hematology and they feel her anemia is likely secondary to iron deficiency, chronic low volume blood loss, small bowel AVMs and or colitis. No plans for inpatient endoscopy per GI services. Objective - Vital Signs Vital signs: Vital Signs Temp 98.1 F 01/15/18 08:53 Pulse 78 01/15/18 09:00 Resp 18 01/15/18 08:53 BP 99/47 01/15/18 09:00 Pulse Ox 100 01/15/18 09:00 Intake & Output 01/14/18 01/15/18 01/15/18 18:59 06:59 18:59 Intake Total 2020 1680 890 Output Total 750 1175 200 Balance 1270 505 690 Weight 99.5 kg Intake: IV 1200 1200 100 Sodium Chloride 0.9% 1, 1200 1200 100 000 ml @ 100 mls/hr IV . Q10H [facility] Rx#:[id number] Intake, IV Titration 200 Amount Magnesium Sulfate-D5w Pmx 200 1 gm In Dextrose/Water 1 100ml.bag @ 100 mls/hr IVPB Q1H [facility] Rx#: [id number] Oral 480 290 Blood Product 620 500 Rc As-1 Unit 310 [id number] Rc As-1 Unit 0 [id number] Rc As-1 Unit 310 [id number] Output: Urine 750 1175 200 Other: Voiding Method Indwelling Catheter Indwelling Catheter Indwelling Catheter - Exam GENERAL EXAM: Alert, irritable, 77-year-old white female comfortable in no apparent distress. HEAD: Normocephalic/atraumatic. EYES: Normal reaction of pupils, equal size. Conjunctiva pink, sclera white. NOSE: Clear with pink turbinates. THROAT: No erythema or exudates. NECK: No masses, no JVD, no thyroid enlargement, no adenopathy. CHEST: No chest wall deformity. Symmetrical expansion. LUNGS: Equal air entry with crackles over bilateral lower lobes posteriorly, faint end expiratory wheeze. CVS: Regular rate and rhythm, normal S1 and S2, no gallops, no murmurs, no rubs ABDOMEN: Soft, nontender. No hepatosplenomegaly, normal bowel sounds, no guarding or rigidity. EXTREMITIES: No clubbing, mild pretib edema, no cyanosis, 2+ pulses and upper and lower extremities. MUSCULOSKELETAL: Muscle strength and tone normal. SPINE: No scoliosis or deformity SKIN: No rashes CENTRAL NERVOUS SYSTEM: Alert and oriented -3. No focal deficits, tone is normal in all 4 extremities. PSYCHIATRIC: Alert and oriented -3. Appropriate affect. Intact judgment and insight. - Labs CBC & Chem 7: 01/15/18 05:22 01/15/18 05:22 Labs: Abnormal Lab Results - Last 24 Hours (Table) 01/13/18 01/14/18 01/14/18 Range/Units 21:47 04:39 04:39 RBC 1.60 L (3.80-5.40) m/uL Hgb 3.3 L* D (11.4-16.0) gm/dL Hct 13.2 L* (34.0-46.0) % MCH 20.4 L (25.0-35.0) pg MCHC 24.8 L (31.0-37.0) g/dL RDW 18.4 H (11.5-15.5) % Lymphocytes # (1.0-4.8) k/uL Retic Count 3.3 H (0.5-2.0) % Potassium (3.5-5.1) mmol/L Chloride (98-107) mmol/L Carbon Dioxide (22-30) mmol/L Glucose (74-99) mg/dL Calcium (8.4-10.2) mg/dL Iron (50-170) ug/dL Iron Saturation (12.00-45.00) Crossmatch See Detail 01/14/18 01/14/18 01/14/18 Range/Units 04:39 16:00 16:00 RBC 2.58 L (3.80-5.40) m/uL Hgb 6.7 L* D (11.4-16.0) gm/dL Hct 22.7 L (34.0-46.0) % MCH (25.0-35.0) pg MCHC 29.5 L (31.0-37.0) g/dL RDW 18.5 H (11.5-15.5) % Lymphocytes # (1.0-4.8) k/uL Retic Count (0.5-2.0) % Potassium (3.5-5.1) mmol/L Chloride (98-107) mmol/L Carbon Dioxide (22-30) mmol/L Glucose (74-99) mg/dL Calcium (8.4-10.2) mg/dL Iron 12 L (50-170) ug/dL Iron Saturation 3.57 L (12.00-45.00) Crossmatch See Detail 01/15/18 01/15/18 Range/Units 05:22 05:22 RBC 2.03 L (3.80-5.40) m/uL Hgb 5.4 L* (11.4-16.0) gm/dL Hct 17.7 L* (34.0-46.0) % MCH (25.0-35.0) pg MCHC 30.4 L (31.0-37.0) g/dL RDW 18.0 H (11.5-15.5) % Lymphocytes # 0.8 L (1.0-4.8) k/uL Retic Count (0.5-2.0) % Potassium 3.2 L (3.5-5.1) mmol/L Chloride 113 H (98-107) mmol/L Carbon Dioxide 20 L (22-30) mmol/L Glucose 106 H (74-99) mg/dL Calcium 7.5 L (8.4-10.2) mg/dL Iron (50-170) ug/dL Iron Saturation (12.00-45.00) Crossmatch Assessment and Plan Assessment: Assessment: #1. Acute on chronic symptomatic anemia, hemoglobin of 4.8 on presentation, currently down to 3.3. Patient presented with worsening weakness, difficulty ambulating, and shortness of breath. Last EGD from 2016 showed moderate large size hiatal hernia without obvious erosions, mild antral gastritis. Patient is on iron supplements, and she is having black stools. Previous colonoscopy without evidence of colitis or colorectal neoplasia, endoscopy without any source of bleeding. On 01/15/2018 her current hemoglobin is 5.4. She is receiving 2 more units of packed red blood cells today. She is receiving IV iron as well. Hematology is on the case and feels this is an iron deficiency anemia with low volume blood loss related to small bowel AVMs and/or her colitis. In addition she likely has reduced iron absorption due to her GI issues. GI services are on the case. No plans for endoscopy at this time. #2. Recent hospitalization in December for recurrent C. diff colitis, patient was treated with Dificid, and Questran, improved and was discharged home on 01/2018 #3. Recurrent C. diff colitis, with history of fecal transplant #4. 30 pound weight loss per patient in the last 6 weeks related to lack of appetite, ongoing diarrhea, dehydration #5. History of atrial fibrillation, currently in sinus rhythm, patient is on baby aspirin only #6. History of supraventricular tachycardia #7. Mitral valve prolapse #8. Rheumatoid arthritis #9. Hypothyroidism #10. Nicotine dependence, 5 cigarettes a day #11. COPD, stable #12. Chronic back pain #13. Bilateral cataracts with lens implants #14. Anxiety and depression Plan: The patient is seen and evaluated by Dr. Byrd. We will add bronchodilators. We'll continue with blood transfusions and iron replacement. We'll plan to transfer out of the intensive care unit today. Continue to monitor hemoglobins. We will continue to follow and make further recommendations based on her clinical status. I, the cosigning physician, performed a history & physical examination of the patient. Lungs sounds with faint end expiratory wheeze, crackles in the posterior bases. Maintaining good O2 saturations in the 90s on room air. I discussed the assessment and plan of care with my nurse practitioner, Judith Ackerman. I attest to the above note as dictated by her.
--- NOTE | 2018-01-15 12:20 | P.PN ---
Subjective Progress Note Date: 01/15/18 This is a 77-year-old female one of Dr. Marino's patients, she has a past medical history of hypertension, hypertensive cardiovascular disease , mitral valve prolapse, supraventricular tachycardia, rheumatoid arthritis, GERD, COPD, and recurrent C. diff colitis. 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 diff at [facility] 3. Patient have follow-up appointment with Dr. Ortiz and was noted to be pale and weak at that time. He ordered outpatient laboratory studies which found a hemoglobin of 5.7 and patient was instructed to come into [facility] [place] for evaluation where she was found to have a hemoglobin of 4.8 and this morning 3.3. Patient says only been admitted into intensive care unit and is starting transfusion for 1 unit of packed RBCs delayed due to antibodies. Patient is known to have chronic anemia and is followed up with Dr. Shelton in the past. She denies having any change in her stools but they are normally dark due to iron. GI and oncology on consult. Put pressures have been on the low side but not requiring vasopressors. Perez catheter has been placed. 01/15: Patient is resting comfortably without any complaints today. Patient continues to have packed red blood cells blood transfusion. Hemoglobin today is 5.4. She has had a total of 4 transfusion. GI consult completed, endoscopic exams not planned at this time but contingent on clinical course. IV iron ordered. Patient denies any diarrhea, abdominal pain, nausea or vomiting, or hematemesis. She denies any chest pain or difficulty breathing at this time. Urine output is apparently 70-80 mL per hour. Sinus rhythm with a rate of 70 noted on telemetry. Objective - Vital Signs Vital signs: Vital Signs Temp 98.0 F 01/15/18 11:24 Pulse 62 01/15/18 11:24 Resp 18 01/15/18 11:24 BP 106/56 01/15/18 11:24 Pulse Ox 96 01/15/18 11:24 Intake & Output 01/14/18 01/15/18 01/15/18 18:59 06:59 18:59 Intake Total 2020 1680 1000 Output Total 750 1175 260 Balance 1270 505 740 Weight 99.5 kg Intake: IV 1200 1200 100 Sodium Chloride 0.9% 1, 1200 1200 100 000 ml @ 100 mls/hr IV . Q10H [facility] Rx#:[id number] Intake, IV Titration 200 Amount Magnesium Sulfate-D5w Pmx 200 1 gm In Dextrose/Water 1 100ml.bag @ 100 mls/hr IVPB Q1H [facility] Rx#: [id number] Oral 480 290 Blood Product 620 610 Rc As-1 Unit 310 [id number] Rc As-1 Unit 310 [id number] Rc As-1 Unit 310 [id number] Rc As-1 Unit 0 [id number] Output: Urine 750 1175 260 Other: Voiding Method Indwelling Catheter Indwelling Catheter Indwelling Catheter - Exam Gen: This is a 77-year-old female resting comfortably, no acute distress noted, cooperative, obese HEENT: Head is atraumatic, normocephalic. Pupils equal, round. Sclerae is anicteric. NECK: Supple. No JVD. No lymphadenopathy. No thyromegaly. LUNGS: Clear to auscultation. No wheezes or rhonchi. No intercostal retractions. HEART: Regular rate and rhythm. No murmur. ABDOMEN: Soft. Bowel sounds are present. No masses. No tenderness. EXTREMITIES: No pedal edema. No calf tenderness. NEUROLOGICAL: Patient is awake, alert and oriented x3. Cranial nerves 2 through 12 are grossly intact. - Labs CBC & Chem 7: 01/15/18 05:22 01/15/18 05:22 Labs: Abnormal Lab Results - Last 24 Hours (Table) 01/13/18 01/14/18 01/14/18 Range/Units 21:47 04:39 04:39 RBC 1.60 L (3.80-5.40) m/uL Hgb 3.3 L* D (11.4-16.0) gm/dL Hct 13.2 L* (34.0-46.0) % MCH 20.4 L (25.0-35.0) pg MCHC 24.8 L (31.0-37.0) g/dL RDW 18.4 H (11.5-15.5) % Lymphocytes # (1.0-4.8) k/uL Retic Count 3.3 H (0.5-2.0) % Potassium (3.5-5.1) mmol/L Chloride (98-107) mmol/L Carbon Dioxide (22-30) mmol/L Glucose (74-99) mg/dL Calcium (8.4-10.2) mg/dL Iron (50-170) ug/dL Iron Saturation (12.00-45.00) Crossmatch See Detail 01/14/18 01/14/18 01/14/18 Range/Units 04:39 16:00 16:00 RBC 2.58 L (3.80-5.40) m/uL Hgb 6.7 L* D (11.4-16.0) gm/dL Hct 22.7 L (34.0-46.0) % MCH (25.0-35.0) pg MCHC 29.5 L (31.0-37.0) g/dL RDW 18.5 H (11.5-15.5) % Lymphocytes # (1.0-4.8) k/uL Retic Count (0.5-2.0) % Potassium (3.5-5.1) mmol/L Chloride (98-107) mmol/L Carbon Dioxide (22-30) mmol/L Glucose (74-99) mg/dL Calcium (8.4-10.2) mg/dL Iron 12 L (50-170) ug/dL Iron Saturation 3.57 L (12.00-45.00) Crossmatch See Detail 01/15/18 01/15/18 Range/Units 05:22 05:22 RBC 2.03 L (3.80-5.40) m/uL Hgb 5.4 L* (11.4-16.0) gm/dL Hct 17.7 L* (34.0-46.0) % MCH (25.0-35.0) pg MCHC 30.4 L (31.0-37.0) g/dL RDW 18.0 H (11.5-15.5) % Lymphocytes # 0.8 L (1.0-4.8) k/uL Retic Count (0.5-2.0) % Potassium 3.2 L (3.5-5.1) mmol/L Chloride 113 H (98-107) mmol/L Carbon Dioxide 20 L (22-30) mmol/L Glucose 106 H (74-99) mg/dL Calcium 7.5 L (8.4-10.2) mg/dL Iron (50-170) ug/dL Iron Saturation (12.00-45.00) Crossmatch Assessment and Plan Plan: 1. Profound anemia with history of anemia of chronic disease. No signs of bleeding. GI consult, no endoscopic exams ordered at this time, oncology consult, IV iron added. Patient transfused a total of 4 units of packed RBCs. Anemia workup completed. Repeat CBC in the a.m. 2. History of C.Difficile colitis status post fecal transplant at [facility]. Monitor closely. Avoid antibiotics. 3. History of SVT. Stable, Norpace 150 mg twice a day. 4. Hypertension and hypertensive cardiovascular disease. Continue Norpace. 5. GERD. Continue Protonix 40 mg IV twice daily 6. Rheumatoid arthritis. 7. Hypothyroidism. Continue levothyroxine 50 MCG daily 8. Generalized anxiety disorder. Continue Xanax 2 mg every 8 hours as needed. 9. DVT prophylaxis. SCDs and TIMOTEO hose 10. GI prophylaxis. Protonix 40 mg twice daily. Impression and plan of care have been directed as dictated by the signing physician. Skylar Fox nurse practitioner acting as scribe for signing physician.
[2018-01-15] MEDS: POTASSIUM CHLORIDE ER 20 MEQ TAB.ER PO SCH ×2 (13:33→14:48)
[2018-01-15] MEDS: PANTOPRAZOLE 40 MG/10 ML VIAL IV SCH (14:38)
[2018-01-15] MEDS: SODIUM FERRIC GLUCONAT-SUCROSE 125 MG in SODIUM CHLORIDE 0.9% 100 ML IVPB SCH (14:55)
[2018-01-15] MEDS: MAGNESIUM SULFATE-D5W PMX 1 GM in DEXTROSE/WATER 1 100ML.BAG IVPB SCH ×2 (16:07→17:39)
[2018-01-15 17:56] LABS: Anisocytosis Slight; Basophils % (A) 0 %; Eosinophils # (A) 0.1 k/uL (0-0.7); Eosinophils % (A) 2 %; HCT 27.8 % (34.0-46.0); Hypochromasia Marked; Lymphocytes # (A) 1.1 k/uL (1.0-4.8); Lymphocytes % (A) 16 %; MCH 27.5 pg (25.0-35.0); MCHC 30.4 g/dL (31.0-37.0); MCV 90.4 fL (80.0-100.0); Mean Platelet Volume 8.3; Monocytes # (A) 0.6 k/uL (0-1.0); Monocytes % (A) 9 %; Neutrophils # (A) 4.7 k/uL (1.3-7.7); Neutrophils % (A) 71 %; Platelet Count 208 k/uL (150-450); Poikilocytosis Marked; RBC 3.07 m/uL (3.80-5.40); RDW 17.4 % (11.5-15.5); WBC 6.7 k/uL (3.8-10.6)
[2018-01-15 17:57] LABS: HGB 8.4 gm/dL (11.4-16.0)
[2018-01-15 18:15] LABS: Polychromasia Present
--- NOTE | 2018-01-15 20:57 | PN ---
PROGRESS NOTE DATE OF SERVICE: January 15, 2018. CHIEF COMPLAINT: Tired. Janey seen today as a followup. She remained in the intensive care unit. She is still requiring blood transfusion, and she is also currently receiving parenteral iron supplement. Her medication reviewed in her electronic medical record. Denies any fever or chills. No nausea or vomiting. No melena, hematochezia, hematuria or hemoptysis. PHYSICAL EXAMINATION: She is alert, oriented x3. She does not appear to be in distress. Her vital signs are temperature 98.1, afebrile, pulse 67 regular, respiration 18, blood pressure 119/57. HEENT: Normocephalic, atraumatic. No icterus. NECK: Supple. CHEST: Equal expansion bilaterally. Lungs are clear to auscultation. Heart is regular rhythm. Abdomen is soft. No tenderness. Extremities reveal no edema. SKIN: No significant bruises. LABORATORY DATA: WBC of 6.4, hemoglobin 5.4, hematocrit 17.7, platelets are 232. IMPRESSION: Anemia. This is likely been going on for significant period of time, which has worsened over time. The previous iron studies were suggestive of severe iron deficiency anemia. She did have a GI workup in the past including an EGD last year, which revealed large hiatal hernia, and also she did have a colonoscopy within the last 2 years or so, which was unremarkable and she also had a capsule endoscopy. Definitely this worsening anemia happened over prolonged periods of time with severe iron deficiency, which could be due to chronic gastrointestinal blood loss or possible AVM or also she may have issue with absorption of iron supplement because she has severe iron deficiency despite being on oral iron supplement. RECOMMENDATION: 1. Agree with supportive transfusion. 2. The patient may continue parenteral iron supplement. 3. Once her hemoglobin stabilizes, the patient could be discharged home. She will require periodic monitoring of her hemoglobin and of her iron and she may require periodic parenteral iron supplement. Also we should consider additional workup in the outpatient setting, which may include an enteroscopy or CT enterogram to for to further evaluate potential source or potential cause of gastrointestinal blood loss. The above was discussed with the patient. I have answered her questions. MMODL / IJN: [id number] /
[2018-01-15] MEDS: ALBUTEROL NEBULIZED 2.5 MG/3 ML INHALATION PRN (21:25)
[2018-01-15] MEDS: ALPRAZolam 1 MG TAB PO PRN (21:26)
[2018-01-15] MEDS: ZOLPIDEM 10 MG TAB PO PRN (21:26)
[2018-01-16] MEDS: ALPRAZolam 1 MG TAB PO PRN ×2 (04:28→21:33)
[2018-01-16 05:11] LABS: Anisocytosis Slight; Basophils % (A) 0 %; Eosinophils # (A) 0.1 k/uL (0-0.7); Eosinophils % (A) 2 %; HCT 25.6 % (34.0-46.0); HGB 7.7 gm/dL (11.4-16.0); Hypochromasia Marked; Lymphocytes # (A) 0.9 k/uL (1.0-4.8); Lymphocytes % (A) 14 %; MCH 26.9 pg (25.0-35.0); MCV 89.6 fL (80.0-100.0); Mean Platelet Volume 8.1; Monocytes # (A) 0.5 k/uL (0-1.0); Monocytes % (A) 8 %; Neutrophils # (A) 4.9 k/uL (1.3-7.7); Neutrophils % (A) 74 %; Platelet Count 218 k/uL (150-450); Poikilocytosis Marked; RBC 2.86 m/uL (3.80-5.40); RDW 17.7 % (11.5-15.5); WBC 6.5 k/uL (3.8-10.6)
[2018-01-16 05:22] LABS: ALT 17 U/L (9-52); AST 21 U/L (14-36); Albumin 2.4 g/dL (3.5-5.0); Alkaline Phosphatase 53 U/L (38-126); Anion Gap 7 mmol/L; Blood Urea Nitrogen 6 mg/dL (7-17); Calcium 7.7 mg/dL (8.4-10.2); Carbon Dioxide 19 mmol/L (22-30); Chloride 112 mmol/L (98-107); Glucose 90 mg/dL (74-99); Phosphorus 3.7 mg/dL (2.5-4.5); Potassium 3.4 mmol/L (3.5-5.1); Sodium 138 mmol/L (137-145); Total Bilirubin 0.5 mg/dL (0.2-1.3); Total Protein 4.7 g/dL (6.3-8.2)
[2018-01-16] MEDS: LEVOTHYROXINE 50 MCG TAB PO SCH (06:47)
[2018-01-16] MEDS: DISOPYRAMIDE 150 MG PO SCH ×2 (08:07→22:25)
[2018-01-16] MEDS: PANTOPRAZOLE 40 MG/10 ML VIAL IV SCH (08:07)
[2018-01-16] MEDS: SODIUM FERRIC GLUCONAT-SUCROSE 125 MG in SODIUM CHLORIDE 0.9% 100 ML IVPB SCH (10:16)
--- NOTE | 2018-01-16 10:34 | PN ---
PROGRESS NOTE DATE OF SERVICE: January 16, 2018. REQUESTING PHYSICIAN: Dr. Snell. The patient is a 77-year-old pleasant white female admitted to the hospital with severe anemia, hemoglobin of 5.5 requiring 2 units of blood transfusion. The patient has been doing well. Presently in the ICU. Denies any symptoms. She reports no abdominal pain. No nausea, no vomiting. No fever, chills, or night sweats. She had a similar episode in 2014 at which time she was admitted to the hospital with a hemoglobin of 5, needing an EGD and colonoscopy that was unremarkable. Two years later, which was in January of 2017 she was readmitted to the hospital with once again with severe iron deficiency anemia. Upper endoscopy done at that time revealed a moderate- sized hiatal hernia, but otherwise it was unremarkable. Subsequently, she had a small bowel capsule endoscopy done that was also unremarkable. The patient denies any symptoms currently. PHYSICAL EXAMINATION: She appears comfortable. No apparent distress. VITAL SIGNS: Stable. Blood pressure is 119/52, pulse rate 73, temperature 99.3. HEENT examination unremarkable. Conjunctivae pink. Sclerae anicteric. Oral cavity no lesions. Neck no jugular venous distention or lymph node enlargement. Chest was clear to auscultation. HEART: Regular rate and rhythm. ABDOMEN: Soft. Bowel sounds are positive. No organomegaly. Extremities no pedal edema. Skin no rashes. NEUROLOGIC: Alert and oriented x3. No focal deficits. LABS: From at the time of admission to the hospital revealed WBC 6.3, hemoglobin 3.3, and platelets are 304. Today hemoglobin is 7.7, WBC 6.5, and platelets are normal. Serum ferritin is 70, TIBC 336, iron is 12, and iron saturation is 3.5%. IMPRESSION: Severe symptomatic iron deficiency anemia with a hemoglobin at 3.3, requiring 4 units of blood transfusion. Patient had similar hospitalizations in 2014 at which time an EGD and colonoscopy showed a moderate-size hiatal hernia, but otherwise unremarkable. She had a hospitalization in January of 2017. An EGD done at that time showed a moderate-size hiatal hernia, but no source of active bleeding. The small bowel capsule endoscopy done around the same time was unremarkable. Most likely her anemia is from occult gastrointestinal blood loss source of which remains unidentified. RECOMMENDATIONS: 1. We will not plan on any endoscopy intervention at the present time as patient does not want to proceed with anything while in the hospital. 2. We will consider repeat small bowel capsule endoscopy or CT/MR enterography to investigate further on an outpatient basis. 3. Continue with iron supplements. 4. Follow up with Dr. Shelton on a periodic basis and monitor hemoglobin and hematocrit closely. Thank you for this consultation. MMODL / IJN: [id number] /
--- NOTE | 2018-01-16 11:42 | P.PN ---
Subjective Progress Note Date: 01/16/18 On 01/17/2080 I'm seeing this patient for a follow-up. The patient received 2 units of packed RBC and hemoglobin is up to 8.4 and dropped down to 7.7. No evidence of any acute GI bleeding for now. She is calm and comfortable. No respiratory difficulties. No transfusion reaction. No other complaints otherwise for now and the patient be transferred out of the intensive care unit today. Hemodynamically she is stable. Renal function stable. The patient received a dose of IV iron yesterday and hematology is on the case. She had a formed bowel movement today. She is is drinking in drinking adequately. Objective - Vital Signs Vital signs: Vital Signs Temp 99.3 F 01/16/18 04:00 Pulse 68 01/16/18 11:00 Resp 15 01/16/18 11:00 BP 124/58 01/16/18 11:00 Pulse Ox 97 01/16/18 11:00 Intake & Output 01/15/18 01/16/18 01/16/18 18:59 06:59 18:59 Intake Total 2000 700 440 Output Total 700 900 540 Balance 1300 -200 -100 Weight 99.2 kg Intake: IV 100 220 100 0.9 220 100 Sodium Chloride 0.9% 1, 100 000 ml @ 100 mls/hr IV . Q10H [facility] Rx#:[id number] Intake, IV Titration 300 100 Amount Magnesium Sulfate-D5w Pmx 200 1 gm In Dextrose/Water 1 100ml.bag @ 100 mls/hr IVPB Q1H [facility] Rx#: [id number] Sodium Ferric Gluconat- 100 100 Sucrose 125 mg In Sodium Chloride 0.9% 100 ml @ 100 mls/hr IVPB DAILY [facility] Rx#:[id number] Oral 680 480 240 Blood Product 920 Rc As-1 Unit 310 [id number] Rc As-1 Unit 310 [id number] Output: Urine 700 900 540 Other: Voiding Method Indwelling Catheter Indwelling Catheter Indwelling Catheter - Exam GENERAL EXAM: Alert, irritable, 77-year-old white female comfortable in no apparent distress. HEAD: Normocephalic/atraumatic. EYES: Normal reaction of pupils, equal size. Conjunctiva pink, sclera white. NOSE: Clear with pink turbinates. THROAT: No erythema or exudates. NECK: No masses, no JVD, no thyroid enlargement, no adenopathy. CHEST: No chest wall deformity. Symmetrical expansion. LUNGS: Equal air entry with crackles over bilateral lower lobes posteriorly, faint end expiratory wheeze. CVS: Regular rate and rhythm, normal S1 and S2, no gallops, no murmurs, no rubs ABDOMEN: Soft, nontender. No hepatosplenomegaly, normal bowel sounds, no guarding or rigidity. EXTREMITIES: No clubbing, mild pretib edema, no cyanosis, 2+ pulses and upper and lower extremities. MUSCULOSKELETAL: Muscle strength and tone normal. SPINE: No scoliosis or deformity SKIN: No rashes CENTRAL NERVOUS SYSTEM: Alert and oriented -3. No focal deficits, tone is normal in all 4 extremities. PSYCHIATRIC: Alert and oriented -3. Appropriate affect. Intact judgment and insight. - Labs CBC & Chem 7: 01/16/18 04:21 01/16/18 04:21 Labs: Abnormal Lab Results - Last 24 Hours (Table) 01/14/18 01/15/18 01/16/18 Range/Units 16:00 17:27 04:21 RBC 3.07 L 2.86 L (3.80-5.40) m/uL Hgb 8.4 L D 7.7 L (11.4-16.0) gm/dL Hct 27.8 L 25.6 L (34.0-46.0) % MCHC 30.4 L 30.0 L (31.0-37.0) g/dL RDW 17.4 H 17.7 H (11.5-15.5) % Lymphocytes # 0.9 L (1.0-4.8) k/uL Potassium (3.5-5.1) mmol/L Chloride (98-107) mmol/L Carbon Dioxide (22-30) mmol/L BUN (7-17) mg/dL Calcium (8.4-10.2) mg/dL Total Protein (6.3-8.2) g/dL Albumin (3.5-5.0) g/dL Crossmatch See Detail 01/16/18 Range/Units 04:21 RBC (3.80-5.40) m/uL Hgb (11.4-16.0) gm/dL Hct (34.0-46.0) % MCHC (31.0-37.0) g/dL RDW (11.5-15.5) % Lymphocytes # (1.0-4.8) k/uL Potassium 3.4 L (3.5-5.1) mmol/L Chloride 112 H (98-107) mmol/L Carbon Dioxide 19 L (22-30) mmol/L BUN 6 L (7-17) mg/dL Calcium 7.7 L (8.4-10.2) mg/dL Total Protein 4.7 L (6.3-8.2) g/dL Albumin 2.4 L (3.5-5.0) g/dL Crossmatch Assessment and Plan Plan: Assessment: #1. Acute on chronic symptomatic anemia, hemoglobin of 4.8 on presentation, currently down to 3.3. Patient presented with worsening weakness, difficulty ambulating, and shortness of breath. Last EGD from 2016 showed moderate large size hiatal hernia without obvious erosions, mild antral gastritis. Patient is on iron supplements, and she is having black stools. Previous colonoscopy without evidence of colitis or colorectal neoplasia, endoscopy without any source of bleeding. On 01/15/2018 her current hemoglobin is 5.4. She is receiving 2 more units of packed red blood cells today. She is receiving IV iron as well. Hematology is on the case and feels this is an iron deficiency anemia with low volume blood loss related to small bowel AVMs and/or her colitis. In addition she likely has reduced iron absorption due to her GI issues. GI services are on the case. No plans for endoscopy at this time. On 01/16/2018 the patient is transfused and the patient is hemodynamically stable and hemoglobin is above 7 and there are no signs of any acute GI bleeding. IV iron was also given an hematology is on the case. No plans to repeat her endoscopy at this point in time. #2. Recent hospitalization in December for recurrent C. diff colitis, patient was treated with Dificid, and Questran, improved and was discharged home on 01/2018 #3. Recurrent C. diff colitis, with history of fecal transplant #4. 30 pound weight loss per patient in the last 6 weeks related to lack of appetite, ongoing diarrhea, dehydration #5. History of atrial fibrillation, currently in sinus rhythm, patient is on baby aspirin only #6. History of supraventricular tachycardia #7. Mitral valve prolapse #8. Rheumatoid arthritis #9. Hypothyroidism #10. Nicotine dependence, 5 cigarettes a day #11. COPD, stable #12. Chronic back pain #13. Bilateral cataracts with lens implants #14. Anxiety and depression Plan Transfer this patient to medical floor. She'll be leaving the ICU today under the care of medicine.
--- NOTE | 2018-01-16 12:30 | P.PN ---
Subjective Progress Note Date: 01/16/18 This is a 77-year-old female one of Dr. Marino's patients, she has a past medical history of hypertension, hypertensive cardiovascular disease , mitral valve prolapse, supraventricular tachycardia, rheumatoid arthritis, GERD, COPD, and recurrent C. diff colitis. 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 diff at [facility] 3. Patient have follow-up appointment with Dr. Ortiz and was noted to be pale and weak at that time. He ordered outpatient laboratory studies which found a hemoglobin of 5.7 and patient was instructed to come into [facility] emergency [place] for evaluation where she was found to have a hemoglobin of 4.8 and this morning 3.3. Patient says only been admitted into intensive care unit and is starting transfusion for 1 unit of packed RBCs delayed due to antibodies. Patient is known to have chronic anemia and is followed up with Dr. Shelton in the past. She denies having any change in her stools but they are normally dark due to iron. GI and oncology on consult. Put pressures have been on the low side but not requiring vasopressors. Perez catheter has been placed. 01/15: Patient is resting comfortably without any complaints today. Patient continues to have packed red blood cells blood transfusion. Hemoglobin today is 5.4. She has had a total of 4 transfusion. GI consult completed, endoscopic exams not planned at this time but contingent on clinical course. IV iron ordered. Patient denies any diarrhea, abdominal pain, nausea or vomiting, or hematemesis. She denies any chest pain or difficulty breathing at this time. Urine output is apparently 70-80 mL per hour. Sinus rhythm with a rate of 70 noted on telemetry. 01/16: Patient continues to rest comfortably without any complaints today. Patient had a total of 4 transfusions. Hemoglobin today is 7.7. Continues to have intravenous iron supplements. Hematology and gastroenterology testing can be completed in the outpatient setting. Patient denies any diarrhea, abdominal pain, nausea or vomiting, or hematemesis. She denies any chest pain or difficulty breathing at this time. Urine output is approximately 70-80 ML per hour. Patient may be transferred to medical surgical unit for possible discharge tomorrow home. Sinus rhythm with a rate of 75 noted on telemetry. Objective - Vital Signs Vital signs: Vital Signs Temp 99.3 F 01/16/18 04:00 Pulse 68 01/16/18 11:00 Resp 15 01/16/18 11:00 BP 124/58 01/16/18 11:00 Pulse Ox 97 01/16/18 11:00 Intake & Output 01/15/18 01/16/18 01/16/18 18:59 06:59 18:59 Intake Total 2000 700 440 Output Total 700 900 540 Balance 1300 -200 -100 Weight 99.2 kg Intake: IV 100 220 100 0.9 220 100 Sodium Chloride 0.9% 1, 100 000 ml @ 100 mls/hr IV . Q10H [facility] Rx#:[id number] Intake, IV Titration 300 100 Amount Magnesium Sulfate-D5w Pmx 200 1 gm In Dextrose/Water 1 100ml.bag @ 100 mls/hr IVPB Q1H [facility] Rx#: [id number] Sodium Ferric Gluconat- 100 100 Sucrose 125 mg In Sodium Chloride 0.9% 100 ml @ 100 mls/hr IVPB DAILY [facility] Rx#:[id number] Oral 680 480 240 Blood Product 920 Rc As-1 Unit 310 [id number] Rc As-1 Unit 310 [id number] Output: Urine 700 900 540 Other: Voiding Method Indwelling Catheter Indwelling Catheter Indwelling Catheter - Exam Gen: This is a 77-year-old female resting comfortably, no acute distress noted, cooperative, obese HEENT: Head is atraumatic, normocephalic. Pupils equal, round. Sclerae is anicteric. NECK: Supple. No JVD. No lymphadenopathy. No thyromegaly. LUNGS: Clear to auscultation. No wheezes or rhonchi. No intercostal retractions. HEART: Regular rate and rhythm. No murmur. ABDOMEN: Soft. Bowel sounds are present. No masses. No tenderness. EXTREMITIES: No pedal edema. No calf tenderness. NEUROLOGICAL: Patient is awake, alert and oriented x3. Cranial nerves 2 through 12 are grossly intact. - Labs CBC & Chem 7: 01/16/18 04:21 01/16/18 04:21 Labs: Abnormal Lab Results - Last 24 Hours (Table) 01/14/18 01/15/18 01/16/18 Range/Units 16:00 17:27 04:21 RBC 3.07 L 2.86 L (3.80-5.40) m/uL Hgb 8.4 L D 7.7 L (11.4-16.0) gm/dL Hct 27.8 L 25.6 L (34.0-46.0) % MCHC 30.4 L 30.0 L (31.0-37.0) g/dL RDW 17.4 H 17.7 H (11.5-15.5) % Lymphocytes # 0.9 L (1.0-4.8) k/uL Potassium (3.5-5.1) mmol/L Chloride (98-107) mmol/L Carbon Dioxide (22-30) mmol/L BUN (7-17) mg/dL Calcium (8.4-10.2) mg/dL Total Protein (6.3-8.2) g/dL Albumin (3.5-5.0) g/dL Crossmatch See Detail 01/16/18 Range/Units 04:21 RBC (3.80-5.40) m/uL Hgb (11.4-16.0) gm/dL Hct (34.0-46.0) % MCHC (31.0-37.0) g/dL RDW (11.5-15.5) % Lymphocytes # (1.0-4.8) k/uL Potassium 3.4 L (3.5-5.1) mmol/L Chloride 112 H (98-107) mmol/L Carbon Dioxide 19 L (22-30) mmol/L BUN 6 L (7-17) mg/dL Calcium 7.7 L (8.4-10.2) mg/dL Total Protein 4.7 L (6.3-8.2) g/dL Albumin 2.4 L (3.5-5.0) g/dL Crossmatch Assessment and Plan Plan: 1. Profound anemia with history of anemia of chronic disease. No signs of bleeding. Repeat hemoglobin 7.7, continue with IV iron, hematologic and gastroenterologic testing may be completed outpatient setting. Transferred to medical surgical unit with a possible discharge tomorrow. 2. History of C.Difficile colitis status post fecal transplant at [facility]. Monitor closely. Avoid antibiotics. 3. History of SVT. Stable, Norpace 150 mg twice a day. 4. Hypertension and hypertensive cardiovascular disease. Continue Norpace. 5. GERD. Continue Protonix 40 mg IV twice daily 6. Rheumatoid arthritis. 7. Hypothyroidism. Continue levothyroxine 50 MCG daily 8. Generalized anxiety disorder. Continue Xanax 2 mg every 8 hours as needed. 9. DVT prophylaxis. SCDs and TIMOTEO hose 10. GI prophylaxis. Protonix 40 mg twice daily. Impression and plan of care have been directed as dictated by the signing physician. Skylar Fox nurse practitioner acting as scribe for signing physician.
[2018-01-16] MEDS: traMADol 50 MG TAB PO PRN (16:27)
[2018-01-16] MEDS: ALBUTEROL NEBULIZED 2.5 MG/3 ML INHALATION PRN ×3 (16:33→23:57)
[2018-01-16] MEDS: ZOLPIDEM 10 MG TAB PO PRN (21:33)
[2018-01-17] MEDS: traMADol 50 MG TAB PO PRN (01:47)
[2018-01-17] MEDS: ALPRAZolam 1 MG TAB PO PRN (04:36)
[2018-01-17] MEDS: LEVOTHYROXINE 50 MCG TAB PO SCH (06:42)
[2018-01-17 07:11] VITALS: BP 143/79; RESP 16; TEMP 98
[2018-01-17] MEDS: ALBUTEROL NEBULIZED 2.5 MG/3 ML INHALATION PRN ×2 (08:25→12:41)
[2018-01-17] MEDS: PANTOPRAZOLE 40 MG/10 ML VIAL IV SCH (09:05)
[2018-01-17] MEDS: DISOPYRAMIDE 150 MG PO SCH (09:05)
[2018-01-17 09:13] LABS: Anisocytosis Slight; Basophils % (A) 0 %; Eosinophils # (A) 0.1 k/uL (0-0.7); Eosinophils % (A) 1 %; HCT 26.4 % (34.0-46.0); HGB 7.9 gm/dL (11.4-16.0); Hypochromasia Marked; Lymphocytes # (A) 0.8 k/uL (1.0-4.8); Lymphocytes % (A) 13 %; MCH 26.4 pg (25.0-35.0); MCHC 29.8 g/dL (31.0-37.0); MCV 88.4 fL (80.0-100.0); Mean Platelet Volume 8.2; Monocytes # (A) 0.4 k/uL (0-1.0); Monocytes % (A) 7 %; Neutrophils % (A) 79 %; Platelet Count 197 k/uL (150-450); Poikilocytosis Marked; RBC 2.98 m/uL (3.80-5.40); RDW 18.8 % (11.5-15.5); WBC 6.3 k/uL (3.8-10.6)
[2018-01-17 09:19] LABS: Anion Gap 6 mmol/L; Blood Urea Nitrogen 5 mg/dL (7-17); Carbon Dioxide 23 mmol/L (22-30); Chloride 109 mmol/L (98-107); Glucose 97 mg/dL (74-99); Magnesium 1.6 mg/dL (1.6-2.3); Potassium 3.7 mmol/L (3.5-5.1); Sodium 138 mmol/L (137-145)
[2018-01-17] MEDS ORDERED: ACETAMINOPHEN TAB 325 MG TAB PO PRN (09:26)
[2018-01-17 12:42] VITALS: PULSE 72
--- NOTE | 2018-01-17 16:07 | P.DS ---
Providers Date of admission: 01/13/18 21:40 Expected date of discharge: 01/17/18 Attending physician: Shirley Weinberg Consults: 01/13/18 21:40 Consult Physician Routine Consulting Provider: Deyvi Medrano Consult Reason/Comments: gib Do you want consulting provider notified?: Yes 01/13/18 22:02 Consult Physician Routine Consulting Provider: Bernabe Sanchez Consult Reason/Comments: icu Do you want consulting provider notified?: Yes 01/14/18 12:14 Consult Physician Routine Consulting Provider: Eddie Acuna Consult Reason/Comments: anemia Do you want consulting provider notified?: Yes [facility] Course: This is a 77-year-old female one of Dr. Marino's patients, she has a past medical history of hypertension, hypertensive cardiovascular disease , mitral valve prolapse, supraventricular tachycardia, rheumatoid arthritis, GERD, COPD, and recurrent C. diff colitis. 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 Patient have follow-up appointment with Dr. Ortiz and was noted to be pale and weak at that time. He ordered outpatient laboratory studies which found a hemoglobin of 5.7 and patient was instructed to come into [facility] emergency center for evaluation where she was found to have a hemoglobin of 4.8 and this morning 3.3. Patient says only been admitted into intensive care unit and is starting transfusion for 1 unit of packed RBCs delayed due to antibodies. Patient is known to have chronic anemia and is followed up with Dr. Shelton in the past. She denies having any change in her stools but they are normally dark due to iron. GI and oncology on consult. Put pressures have been on the low side but not requiring vasopressors. Eprez catheter has been placed. 01/15: Patient is resting comfortably without any complaints today. Patient continues to have packed red blood cells blood transfusion. Hemoglobin today is 5.4. She has had a total of 4 transfusion. GI consult completed, endoscopic exams not planned at this time but contingent on clinical course. IV iron ordered. Patient denies any diarrhea, abdominal pain, nausea or vomiting, or hematemesis. She denies any chest pain or difficulty breathing at this time. Urine output is apparently 70-80 mL per hour. Sinus rhythm with a rate of 70 noted on telemetry. 01/16: Patient continues to rest comfortably without any complaints today. Patient had a total of 4 transfusions. Hemoglobin today is 7.7. Continues to have intravenous iron supplements. Hematology and gastroenterology testing can be completed in the outpatient setting. Patient denies any diarrhea, abdominal pain, nausea or vomiting, or hematemesis. She denies any chest pain or difficulty breathing at this time. Urine output is approximately 70-80 ML per hour. Patient may be transferred to medical surgical unit for possible discharge tomorrow home. Sinus rhythm with a rate of 75 noted on telemetry. 01/17: Hemoglobin is stable today at 7.9, WBC 6.3 and platelet count 197, creatinine of 0.51. Patient has complaints of a headache this morning of a #8 that did not help with trying month old. Tylenol added which didn't significantly help her headache. Patient will be discharged home today in stable condition. Discharge diagnoses: 1. Profound anemia with history of anemia of chronic disease. 2. History of C.Difficile colitis status post fecal transplant at [facility]. 3. History of SVT. 4. Hypertension and hypertensive cardiovascular disease. 5. GERD. 6. Rheumatoid arthritis. 7. Hypothyroidism. 8. Generalized anxiety disorder. Discharge plan: home Impression and plan of care have been directed as dictated by the signing physician. Domenica Reed nurse practitioner acting as scribe for signing physician. Patient Condition at Discharge: Good Plan - Discharge Summary New Discharge Prescriptions: New Ferrous Sulfate [Feosol] 325 mg PO DAILY #30 tab Continue Levothyroxine Sodium [Synthroid] 50 mcg PO QAM Aspirin 81 mg PO QAM Furosemide [Lasix] 40 mg PO QAM Atenolol 100 mg PO HS ALPRAZolam [Xanax] 2 mg PO Q8H PRN PRN Reason: Anxiety Loratadine [Claritin] 10 mg PO DAILY tab Zolpidem [Ambien] 10 mg PO HS PRN PRN Reason: Insomnia Multivit-Min/Iron/Folic/Lutein [Centrum Silver Women Tablet] 1 tab PO DAILY Disopyramide Phosphate [Norpace Cr] 150 mg PO BID traMADol HCl [Ultram] 50 mg PO TID PRN PRN Reason: Pain Cholestyramine (with Sugar) [Questran Packet] 4 gm PO AC-BID #20 packet Pantoprazole [Protonix] 40 mg PO QAM Discharge Medication List Levothyroxine Sodium [Synthroid] 50 mcg PO QAM 03/03/14 [History] Aspirin 81 mg PO QAM 07/29/14 [History] Atenolol 100 mg PO HS 09/25/15 [History] Furosemide [Lasix] 40 mg PO QAM 09/25/15 [History] ALPRAZolam [Xanax] 2 mg PO Q8H PRN 07/17/16 [History] Loratadine [Claritin] 10 mg PO DAILY tab 01/26/17 [Rx] Disopyramide Phosphate [Norpace Cr] 150 mg PO BID 10/28/17 [History] Multivit-Min/Iron/Folic/Lutein [Centrum Silver Women Tablet] 1 tab PO DAILY [History] Zolpidem [Ambien] 10 mg PO HS PRN 10/28/17 [History] traMADol HCl [Ultram] 50 mg PO TID PRN 10/28/17 [History] Cholestyramine (with Sugar) [Questran Packet] 4 gm PO AC-BID #20 packet [Rx] Pantoprazole [Protonix] 40 mg PO QAM 01/13/18 [History] Ferrous Sulfate [Feosol] 325 mg PO DAILY #30 tab 01/17/18 [Rx] Follow up Appointment(s)/Referral(s): Eddie Acuna MD [STAFF PHYSICIAN] - 01/27/18 3:15 pm ([place] [address] ) Sameera Mccormack MD [STAFF PHYSICIAN] - 02/23/18 2:45 pm Franklyn Marino DO [Primary Care Provider] - 1 Week (Office will contact patient upon discharge to set up a follow up appointment) Patient Instructions/Handouts: Gastrointestinal Bleeding (DC), Anemia (DC) Discharge Disposition: HOME SELF-CARE
[2018-01-18 09:34] LABS: Methylmalonic Acid 0.14 umol/L (<0.40)
== END 2018-01-17 13:40 | disposition home or self-care (01) | DRG 812 ==
LOC: EC 19:46 → 6ICU 21:40 → 3SUR 01-16 14:53
PROVIDERS: ADMIT Internal Medicine; ATTEND Internal Medicine
PROC: 30233N1 Transfusion of Nonautologous Red Blood Cells into Peripheral Vein, Percutaneous Approach (ICD-10-PCS; principal; 2018-01-17)
DX: D50.9 Iron deficiency anemia, unspecified (principal); I48.92 Unspecified atrial flutter; A04.71 Enterocolitis due to Clostridium difficile, recurrent; D63.8 Anemia in other chronic diseases classified elsewhere; E03.9 Hypothyroidism, unspecified; E78.5 Hyperlipidemia, unspecified; F17.210 Nicotine dependence, cigarettes, uncomplicated; F32.9 Major depressive disorder, single episode, unspecified; F41.1 Generalized anxiety disorder; G89.29 Other chronic pain; M54.9 Dorsalgia, unspecified; Z98.42 Cataract extraction status, left eye; Z98.41 Cataract extraction status, right eye; Z96.1 Presence of intraocular lens; R63.4 Abnormal weight loss; Z68.35 Body mass index [BMI] 35.0-35.9, adult; I11.9 Hypertensive heart disease without heart failure; I34.1 Nonrheumatic mitral (valve) prolapse; I48.91 Unspecified atrial fibrillation; Z79.82 Long term (current) use of aspirin; Z79.890 Hormone replacement therapy; Z79.899 Other long term (current) drug therapy; J44.9 Chronic obstructive pulmonary disease, unspecified; K21.9 Gastro-esophageal reflux disease without esophagitis; K44.9 Diaphragmatic hernia without obstruction or gangrene; K55.20 Angiodysplasia of colon without hemorrhage; M06.9 Rheumatoid arthritis, unspecified; Z80.1 Family history of malignant neoplasm of trachea, bronchus and lung; Z82.3 Family history of stroke; Z82.49 Family history of ischemic heart disease and other diseases of the circulatory system; Z82.5 Family history of asthma and other chronic lower respiratory diseases; Z86.19 Personal history of other infectious and parasitic diseases; Z90.710 Acquired absence of both cervix and uterus; Z96.611 Presence of right artificial shoulder joint; Z96.643 Presence of artificial hip joint, bilateral; Z96.653 Presence of artificial knee joint, bilateral; Z88.1 Allergy status to other antibiotic agents; Z88.0 Allergy status to penicillin; Z88.2 Allergy status to sulfonamides; Z88.8 Allergy status to other drugs, medicaments and biological substances; Z94.89 Other transplanted organ and tissue status
CPT/HCPCS: 36415; 71045; 80048; 80053; 82550; 82553; 82607; 82728; 82747; 83010; 83540; 83550; 83615; 83735; 83921; 84100; 84484; 85025; 85027; 85045; 85610; 85730; 86850; 86870; 86880; 86885; 86900; 86901; 86902; 86920; 94640; 96360; 96361; 99291

== ENCOUNTER → 2018-01-13 | Outpatient (CLI) | payer MEDICARE ==
[2018-01-13 17:44] LABS: Anisocytosis Slight; Basophils % (A) 0 %; Eosinophils # (A) 0.1 k/uL (0-0.7); Eosinophils % (A) 1 %; Hypochromasia Marked; Lymphocytes # (A) 1.4 k/uL (1.0-4.8); Lymphocytes % (A) 20 %; MCH 21.2 pg (25.0-35.0); MCHC 24.5 g/dL (31.0-37.0); MCV 86.5 fL (80.0-100.0); Mean Platelet Volume 6.8; Monocytes # (A) 0.4 k/uL (0-1.0); Monocytes % (A) 6 %; Neutrophils % (A) 70 %; Platelet Count 349 k/uL (150-450); Poikilocytosis Slight; RDW 17.1 % (11.5-15.5); WBC 7.2 k/uL (3.8-10.6)
[2018-01-13 17:48] LABS: Anion Gap 9 mmol/L; Blood Urea Nitrogen 11 mg/dL (7-17); Calcium 8.5 mg/dL (8.4-10.2); Carbon Dioxide 22 mmol/L (22-30); Chloride 106 mmol/L (98-107); Glucose 83 mg/dL (74-99); Potassium 3.6 mmol/L (3.5-5.1); Sodium 137 mmol/L (137-145)
[2018-01-13 17:57] LABS: HCT 18.2 % (34.0-46.0); HGB 4.5 gm/dL (11.4-16.0)
[2018-01-14 02:44] LABS: Iron Saturation 37.86 (12.00-45.00)
== END | disposition home or self-care (01) ==
LOC: LABWHC1 16:26
PROVIDERS: ATTEND Internal Medicine Infectious Disease
DX: D64.9 Anemia, unspecified (principal)
CPT/HCPCS: 36415; 80048; 82728; 83540; 83550; 85025

== ENCOUNTER 2018-03-15 19:15 | Inpatient (IN) | payer MEDICARE ==
[2018-03-15 20:12] LABS: Albumin 3.7 g/dL (3.5-5.0); Calcium 8.6 mg/dL (8.4-10.2); Potassium 3.6 mmol/L (3.5-5.1); Total Bilirubin 0.3 mg/dL (0.2-1.3); Total Protein 6.8 g/dL (6.3-8.2)
[2018-03-15 20:13] LABS: Anisocytosis Slight; Hypochromasia Marked; MCH 20.6 pg (25.0-35.0); MCHC 27.4 g/dL (31.0-37.0); MCV 75.2 fL (80.0-100.0); Mean Platelet Volume 7.1; Microcytosis Moderate; Platelet Count 308 k/uL (150-450); Poikilocytosis Moderate; RBC 2.51 m/uL (3.80-5.40); RDW 19.4 % (11.5-15.5)
[2018-03-15 20:16] LABS: HCT 18.9 % (34.0-46.0); HGB 5.2 gm/dL (11.4-16.0); Prothrombin Time 10.1 sec (9.0-12.0)
[2018-03-15 20:20] LABS: Partial Thromboplastin Time 16.7 sec (22.0-30.0)
[2018-03-15 20:43] LABS: Eosinophils # (M) 0.12 k/uL (0-0.7); Neutrophils % (M) 64 %; Nucleated Red Blood Cells 1 /100 WBC (0-0); Total Cells Counted 200
[2018-03-15 20:44] LABS: Hypersegmented Neutrophils Present; Lymphocytes # (M) 1.77 k/uL (1.0-4.8); Neutrophils # (M) 3.78 k/uL (1.3-7.7); Ovalocytes Present; Poikilocytosis (M) Present; Polychromasia Present; Target Cells Present; Toxic Vacuolation Present; WBC 5.9 k/uL (3.8-10.6)
--- NOTE | 2018-03-15 20:48 | ED ---
Recheck HPI - General Chief Complaint: Recheck/Abnormal Lab/Rx Stated Complaint: low hemoglobin Time Seen by Provider: 03/15/18 19:18 Source: patient, EMS - History of Present Illness Initial Comments: 77-year-old female patient presents to the emergency department today sent by her primary care physician for low hemoglobin. Patient states that she has history of anemia and had labs drawn around 2:00 this afternoon. Patient is unsure why she is anemic. States they have been unable to find a cause. She states she has been feeling unwell. States she is tired, and weak. She denies any chest pain or shortness of breath. She denies any hematemesis, hematochezia , or melena. Denies any hematuria, dysuria, urinary frequency, urinary urgency. Patient denies any recent rash, fever, chills, abdominal pain, nausea, vomiting, diarrhea, constipation, back pain, numbness, tingling, dizziness, hematuria, dysuria, urinary urgency, urinary frequency, headache, visual changes , or any other complaints. - Related Data Home Medications Medication Instructions Recorded Confirmed Levothyroxine Sodium [Synthroid] 50 mcg PO QAM 03/03/14 03/15/18 Aspirin 81 mg PO QAM 07/29/14 03/15/18 Atenolol 100 mg PO HS 09/25/15 03/15/18 ALPRAZolam [Xanax] 2 mg PO HS 07/17/16 03/15/18 Disopyramide Phosphate [Norpace Cr] 150 mg PO BID 10/28/17 03/15/18 Multivit-Min/Iron/Folic/Lutein 1 tab PO DAILY 10/28/17 03/15/18 [Centrum Silver Women Tablet] Zolpidem [Ambien] 10 mg PO HS 10/28/17 03/15/18 Albuterol Inhaler [Ventolin Hfa 2 puff INHALATION RT-QID PRN 03/15/18 03/15/18 Inhaler] Citalopram Hydrobromide [CeleXA] 40 mg PO DAILY 03/15/18 03/15/18 Esomeprazole Magnesium [NexIUM] 40 mg PO DAILY 03/15/18 03/15/18 Latanoprost [Xalatan 0.005%] 1 drop BOTH EYES HS 03/15/18 03/15/18 Previous Rx's Medication Instructions Recorded Ferrous Sulfate [Feosol] 325 mg PO DAILY #30 tab 01/17/18 Allergies Allergy/AdvReac Type Severity Reaction Status Date / Time adhesive tape Allergy Rash/Hives Verified 03/15/18 20:05 Influenza Virus Vaccines Allergy "MAKES HER Verified 03/15/18 20:05 FEEL SICK" Sulfa (Sulfonamide Allergy Rash/Hives Verified 03/15/18 20:05 Antibiotics) amoxicillin trihydrate AdvReac Diarrhea Verified 03/15/18 20:05 [From Augmentin] ciprofloxacin [From Cipro] AdvReac Unknown Verified 03/15/18 20:05 metronidazole [From Flagyl] AdvReac Unknown Verified 03/15/18 20:05 potassium clavulanate AdvReac Diarrhea Verified 03/15/18 20:05 [From Augmentin] quinidine AdvReac BLOOD CLOTS Verified 03/15/18 20:05 Review of Systems ROS Statement: Those systems with pertinent positive or pertinent negative responses have been documented in the HPI. ROS Other: All systems not noted in ROS Statement are negative. Past Medical History Past Medical History: Atrial Fibrillation, Atrial Flutter, GERD/Reflux, Hyperlipidemia, Hypertension, Mitral Valve Prolapse (MVP), Rheumatoid Arthritis (RA), Thyroid Disorder Additional Past Medical History / Comment(s): OTHER HX: 03/06/14, 03/30/14, , 07/29/14 with CDIFF colitis, HYPOTHYROID, MVP, urinary incontinence, PROLAPSED MITRAL VALVE- NO PROBLEMS FOR 30 YRS. History of Any Multi-Drug Resistant Organisms: C-DIFF Date of last positivie culture/infection: 11/29/2017 per pt MDRO Source:: none Past Surgical History: Adenoidectomy, Cholecystectomy, Hysterectomy, Joint Replacement, Orthopedic Surgery, Tonsillectomy Additional Past Surgical History / Comment(s): 02/18/16 total R hip arthroplasty. Other surgical HX: BILATERAL KNEE REPLACEMENT (2003-RIGHT & 2005 - LEFT); LOWER LUMBAR LAMINECTOMYL4-L5 (2007); LEFT HIP REPLACEMENT (2012) ; RIGHT SHOULDER REPLACEMENT (2008), left total knee arthroplasty revision. Bilateral cataracts with lens implants. FECALCAL TRASPLANT TX FOR C-DIFF three times. Past Anesthesia/Blood Transfusion Reactions: No Reported Reaction Additional Past Anesthesia/Blood Transfusion Reaction / Comment(s): blood transfusion in past no reactions Past Psychological History: Anxiety, Depression Smoking Status: Current every day smoker Past Alcohol Use History: None Reported Past Drug Use History: None Reported - Past Family History Mother Family Medical History: Cancer Additional Family Medical History / Comment(s): Mother at age 60 with history of emphysema and lung cancer. Father Family Medical History: CVA/TIA Additional Family Medical History / Comment(s): Father at age 74 with problems with his larynx. Sister(s) Family Medical History: Unable to Obtain Daughter(s) Family Medical History: COPD, Myocardial Infarction (NE) Additional Family Medical History / Comment(s): Mother at age 60 yrs of emphysema/lung CA Son(s) Family Medical History: Myocardial Infarction ([place]) Additional Family Medical History / Comment(s): Father at age 74yrs with "CVA of his larynx" General Exam General appearance: alert, in no apparent distress, other (This is a well- developed, well-nourished elderly female patient in no acute distress. Vital signs upon presentation are temperature 97.1F, pulse 63, respirations 16, blood pressure 119/57, pulse ox 100% on room air.) Eye exam: Present: normal appearance, PERRL, EOMI. Absent: scleral icterus, conjunctival injection, periorbital swelling ENT exam: Present: normal exam, normal oropharynx, mucous membranes moist Respiratory exam: Present: normal lung sounds bilaterally. Absent: respiratory distress, wheezes, rales, rhonchi, stridor Cardiovascular Exam: Present: regular rate, normal rhythm, normal heart sounds. Absent: systolic murmur, diastolic murmur, rubs, gallop, clicks GI/Abdominal exam: Present: soft, normal bowel sounds. Absent: distended, tenderness, guarding, rebound, rigid Neurological exam: Present: alert, oriented X3, CN II-XII intact Psychiatric exam: Present: normal affect, normal mood Skin exam: Present: warm, dry, intact, normal color. Absent: rash Course Vital Signs 03/15/18 19:22 Temperature 97.1 F L Pulse Rate 63 Respiratory 16 Rate Blood Pressure 119/57 O2 Sat by Pulse 100 Oximetry Medical Decision Making - Medical Decision Making 77 year-old female patient with history of anemia and multiple heart conditions presents to the emergency department today sent by her primary care physician for low hemoglobin. Labs repeated here and did reveal hemoglobin of 5.2, hematocrit 18.9, remainder of labs were unremarkable. Did order type and screen with crossmatched for 2 units of packed red blood cells. Patient will be admitted to the hospital. Patient is currently hemodynamically stable. - Lab Data Result diagrams: 03/15/18 19:47 03/15/18 19:47 Lab Results 03/15/18 03/15/18 03/15/18 Range/Units 19:47 19:47 19:47 WBC 5.9 (3.8-10.6) k/uL RBC 2.51 L (3.80-5.40) m/uL Hgb 5.2 L* (11.4-16.0) gm/dL Hct 18.9 L* (34.0-46.0) % MCV 75.2 L (80.0-100.0) fL MCH 20.6 L (25.0-35.0) pg MCHC 27.4 L (31.0-37.0) g/dL RDW 19.4 H (11.5-15.5) % Plt Count 308 (150-450) k/uL Neutrophils % (Manual) 64 % Lymphocytes % (Manual) 30 % Monocytes % (Manual) 5 % Eosinophils % (Manual) 2 % Neutrophils # (Manual) 3.78 (1.3-7.7) k/uL Lymphocytes # (Manual) 1.77 (1.0-4.8) k/uL Monocytes # (Manual) 0.30 (0-1.0) k/uL Eosinophils # (Manual) 0.12 (0-0.7) k/uL Nucleated RBCs 1 H (0-0) /100 WBC Manual Slide Review Performed Hypersegmented Neuts Present Toxic Vacuolation Present Polychromasia Present Hypochromasia Marked Poikilocytosis Moderate Poikilocytosis (manual Present Anisocytosis Slight Microcytosis Moderate Target Cells Present Ovalocytes Present PT 10.1 (9.0-12.0) sec INR 1.0 (<1.2) APTT 16.7 L (22.0-30.0) sec Sodium (137-145) mmol/L Potassium (3.5-5.1) mmol/L Chloride (98-107) mmol/L Carbon Dioxide (22-30) mmol/L Anion Gap mmol/L BUN (7-17) mg/dL Creatinine (0.52-1.04) mg/dL Est GFR (CKD-EPI)AfAm (>60 ml/min/1.73 sqM) Est GFR (CKD-EPI)NonAf (>60 ml/min/1.73 sqM) Glucose (74-99) mg/dL Calcium (8.4-10.2) mg/dL Total Bilirubin (0.2-1.3) mg/dL AST (14-36) U/L ALT (9-52) U/L Alkaline Phosphatase (38-126) U/L Total Protein (6.3-8.2) g/dL Albumin (3.5-5.0) g/dL Blood Type Cancelled Blood Type Recheck Cancelled Antibody Screen Cancelled Crossmatch See Detail Spec Expiration Date Cancelled 03/15/18 Range/Units 19:47 WBC (3.8-10.6) k/uL RBC (3.80-5.40) m/uL Hgb (11.4-16.0) gm/dL Hct (34.0-46.0) % MCV (80.0-100.0) fL MCH (25.0-35.0) pg MCHC (31.0-37.0) g/dL RDW (11.5-15.5) % Plt Count (150-450) k/uL Neutrophils % (Manual) % Lymphocytes % (Manual) % Monocytes % (Manual) % Eosinophils % (Manual) % Neutrophils # (Manual) (1.3-7.7) k/uL Lymphocytes # (Manual) (1.0-4.8) k/uL Monocytes # (Manual) (0-1.0) k/uL Eosinophils # (Manual) (0-0.7) k/uL Nucleated RBCs (0-0) /100 WBC Manual Slide Review Hypersegmented Neuts Toxic Vacuolation Polychromasia Hypochromasia Poikilocytosis Poikilocytosis (manual Anisocytosis Microcytosis Target Cells Ovalocytes PT (9.0-12.0) sec INR (<1.2) APTT (22.0-30.0) sec Sodium 137 (137-145) mmol/L Potassium 3.6 (3.5-5.1) mmol/L Chloride 105 (98-107) mmol/L Carbon Dioxide 22 (22-30) mmol/L Anion Gap 10 mmol/L BUN 11 (7-17) mg/dL Creatinine 0.81 (0.52-1.04) mg/dL Est GFR (CKD-EPI)AfAm 82 (>60 ml/min/1.73 sqM) Est GFR (CKD-EPI)NonAf 71 (>60 ml/min/1.73 sqM) Glucose 102 H (74-99) mg/dL Calcium 8.6 (8.4-10.2) mg/dL Total Bilirubin 0.3 (0.2-1.3) mg/dL AST 27 (14-36) U/L ALT 13 (9-52) U/L Alkaline Phosphatase 56 (38-126) U/L Total Protein 6.8 (6.3-8.2) g/dL Albumin 3.7 (3.5-5.0) g/dL Blood Type Blood Type Recheck Antibody Screen Crossmatch Spec Expiration Date - EKG Data -: EKG Interpreted by Dc EKG Comments: EKG obtained at 1928 shows sinus rhythm with first-degree AV block, prolonged QT , ventricular rate is 60, OR interval 226, QRS duration 86, QTc 518, QTC 518. No evidence of ST elevation or depression. Disposition Clinical Impression: Anemia Disposition: ADMITTED IP TO THIS [facility] Condition: Serious Referrals: Franklyn Marino DO [Primary Care Provider] - 1-2 days Decision to Admit Reason: Admit from EC Decision Date: 03/15/18 Decision Time: 21:47
[2018-03-15] MEDS ORDERED: NALOXONE 0.4 MG/ML 1 ML VIAL IV PRN (21:43)
[2018-03-15] MEDS: ALPRAZolam 1 MG TAB PO SCH (23:43)
[2018-03-16] MEDS: oxyCODONE-APAP 5-325MG 1 EACH TAB PO PRN ×3 (00:30→19:38)
[2018-03-16] MEDS: ZOLPIDEM 10 MG TAB PO PRN ×2 (00:30→22:34)
[2018-03-16] MEDS: LEVOTHYROXINE 50 MCG TAB PO SCH (05:37)
[2018-03-16 07:05] LABS: Anisocytosis Slight; Basophils % (A) 0 %; Eosinophils # (A) 0.1 k/uL (0-0.7); Eosinophils % (A) 2 %; Hypochromasia Marked; Lymphocytes % (A) 19 %; MCH 21.2 pg (25.0-35.0); MCHC 27.5 g/dL (31.0-37.0); MCV 77.2 fL (80.0-100.0); Mean Platelet Volume 6.6; Microcytosis Slight; Monocytes # (A) 0.3 k/uL (0-1.0); Monocytes % (A) 5 %; Neutrophils # (A) 3.8 k/uL (1.3-7.7); Neutrophils % (A) 71 %; Platelet Count 286 k/uL (150-450); Poikilocytosis Moderate; RBC 2.05 m/uL (3.80-5.40); RDW 18.6 % (11.5-15.5); WBC 5.3 k/uL (3.8-10.6)
[2018-03-16 07:14] LABS: HGB 4.4 gm/dL (11.4-16.0)
[2018-03-16 07:15] LABS: HCT 15.8 % (34.0-46.0)
[2018-03-16] MEDS: PANTOPRAZOLE 40 MG TABLET PO SCH (08:28)
[2018-03-16] MEDS: CITALOPRAM HYDROBROMIDE 20 MG TAB PO SCH (08:28)
[2018-03-16] MEDS: ASPIRIN 81 MG PO SCH (08:29)
[2018-03-16] MEDS: NORPACE PO SCH ×2 (08:29→22:35)
--- NOTE | 2018-03-16 10:35 | P.CONS ---
History of Present Illness - Reason for Consult Consult date: 03/16/18 Anemia Requesting physician: Angel Snell - Chief Complaint abnormal CBC - History of Present Illness 77 year old female with a history of C. difficile colitis, iron deficiency anemia and positive Hemoccult testing status post EGD colonoscopy capsule endoscopy presents with reported abnormal CBC in the outpatient setting without abdominal pain and symptoms of shortness of breath x 2 weeks. Patient denies overt bleeding such as hematemesis hematochezia or melena. Hemoglobin 4.8. MCV 77.5. Platelets 318. BUN 10. Creatinine 0.7. Denies fever chills abdominal pain. Previous hemoglobin January 2018 9.3. Home medications include Feosol 325 mg every other day secondary to constipation as well as PPI therapy 40 mg daily. Aspirin 81 mg daily. No alcohol or NSAIDs. Iron indices; iron 5. TIBC 325. Ferritin 17. Endoscopic history: EGD colonoscopy November 2014 moderate size hiatal hernia Silviano erosions colonoscopy colonic diverticulosis. Capsule endoscopy November 2015 normal. EGD January 2017 moderate large-size hiatal hernia no obvious erosions identified. Review of Systems Constitutional: Denies fever, chills, sweats, weight gain, or loss. HEENT: Negative for migraines, blurred vision or loss, earaches, drainage, tinnitus, oral mucosal lesions, dysphagia, or odynophagia. CARDIAC: Negative for chest pain, arrhythmias, or palpitation. RESPIRATORY: Negative for shortness of breath, hemoptysis, cough, or sputum production. GI: See HPI for pertinent findings. : Negative for hematuria, urgency, frequency, polyuria, or dysuria. GYNc: Negative vaginal discharge. MUSCULOSKELETAL: Negative for muscle aches, swelling, arthritis, and arthralgias. NEUROLOGIC: Negative for stroke or TIA. ENDOCRINE: Negative for thyroid problems. SKIN: Negative for rash or itching. PSYCHIATRIC: Negative history for depression and anxiety Past Medical History Past Medical History: Atrial Fibrillation, Atrial Flutter, GERD/Reflux, Hyperlipidemia, Hypertension, Mitral Valve Prolapse (MVP), Rheumatoid Arthritis (RA), Thyroid Disorder Additional Past Medical History / Comment(s): OTHER HX: 03/06/14, 03/30/14, , 07/29/14 with CDIFF colitis, HYPOTHYROID, MVP, urinary incontinence, PROLAPSED MITRAL VALVE- NO PROBLEMS FOR 30 YRS. History of Any Multi-Drug Resistant Organisms: C-DIFF Year Discovered:: 11/29/2017 per pt MDRO Source:: none Past Surgical History: Adenoidectomy, Cholecystectomy, Hysterectomy, Joint Replacement, Orthopedic Surgery, Tonsillectomy Additional Past Surgical History / Comment(s): 02/18/16 total R hip arthroplasty. Other surgical HX: BILATERAL KNEE REPLACEMENT (2003-RIGHT & 2005 - LEFT); LOWER LUMBAR LAMINECTOMYL4-L5 (2007); LEFT HIP REPLACEMENT (2012) ; RIGHT SHOULDER REPLACEMENT (2008), left total knee arthroplasty revision. Bilateral cataracts with lens implants. FECALCAL TRASPLANT TX FOR C-DIFF three times. Past Anesthesia/Blood Transfusion Reactions: No Reported Reaction Additional Past Anesthesia/Blood Transfusion Reaction / Comm: blood transfusion in past no reactions Past Psychological History: Anxiety, Depression Additional Psychological History / Comment(s): pt lives in own home w/ a nephew , SHE IS A . CARES FOR HERSELF BUT DOES HAVE A CLEANING LADY ONCE A MONTH. STILL DRIVES, has an electric scooter/w/c. Smoking Status: Current every day smoker Past Alcohol Use History: None Reported Additional Past Alcohol Use History / Comment(s): has smoked since 1954- 5 cig per day and stated she has no intention of quitting No alcohol use or abuse. No street drug use marijuana or medical marijuana use. Past Drug Use History: None Reported - Past Family History Mother Family Medical History: Cancer Additional Family Medical History / Comment(s): Mother at age 60 with history of emphysema and lung cancer. Father Family Medical History: CVA/TIA Additional Family Medical History / Comment(s): Father at age 74 with problems with his larynx. Sister(s) Family Medical History: Unable to Obtain Daughter(s) Family Medical History: COPD, Myocardial Infarction ([place]) Additional Family Medical History / Comment(s): Mother at age 60 yrs of emphysema/lung CA Son(s) Family Medical History: Myocardial Infarction ([place]) Additional Family Medical History / Comment(s): Father at age 74yrs with "CVA of his larynx" Medications and Allergies Home Medications Medication Instructions Recorded Confirmed Type Levothyroxine Sodium [Synthroid] 50 mcg PO QAM 03/03/14 03/15/18 History Aspirin 81 mg PO QAM 07/29/14 03/15/18 History Atenolol 100 mg PO HS 09/25/15 03/15/18 History ALPRAZolam [Xanax] 2 mg PO HS 07/17/16 03/15/18 History Disopyramide Phosphate [Norpace Cr] 150 mg PO BID 10/28/17 03/15/18 History Multivit-Min/Iron/Folic/Lutein 1 tab PO DAILY 10/28/17 03/15/18 History [Centrum Silver Women Tablet] Zolpidem [Ambien] 10 mg PO HS 10/28/17 03/15/18 History Ferrous Sulfate [Feosol] 325 mg PO DAILY #30 tab 01/17/18 03/15/18 Rx Albuterol Inhaler [Ventolin Hfa 2 puff INHALATION RT-QID PRN 03/15/18 03/15/18 History Inhaler] Citalopram Hydrobromide [CeleXA] 40 mg PO DAILY 03/15/18 03/15/18 History Esomeprazole Magnesium [NexIUM] 40 mg PO DAILY 03/15/18 03/15/18 History Latanoprost [Xalatan 0.005%] 1 drop BOTH EYES HS 03/15/18 03/15/18 History Allergies Allergy/AdvReac Type Severity Reaction Status Date / Time adhesive tape Allergy Rash/Hives Verified 03/15/18 20:05 Influenza Virus Vaccines Allergy "MAKES HER Verified 03/15/18 20:05 FEEL SICK" Sulfa (Sulfonamide Allergy Rash/Hives Verified 03/15/18 20:05 Antibiotics) amoxicillin trihydrate AdvReac Diarrhea Verified 03/15/18 20:05 [From Augmentin] ciprofloxacin [From Cipro] AdvReac Unknown Verified 03/15/18 20:05 metronidazole [From Flagyl] AdvReac Unknown Verified 03/15/18 20:05 potassium clavulanate AdvReac Diarrhea Verified 03/15/18 20:05 [From Augmentin] quinidine AdvReac BLOOD CLOTS Verified 03/15/18 20:05 Physical Exam Vitals: Vital Signs Temp Pulse Pulse Resp BP BP Pulse Ox 03/16/18 07:38 98.3 F 66 15 102/62 100 03/16/18 01:58 98.2 F 98/57 03/15/18 22:28 97.7 F 69 17 117/55 100 03/15/18 22:05 98.1 F 89 16 101/54 97 03/15/18 19:22 97.1 F L 63 16 119/57 100 Intake and Output 03/15/18 03/16/18 03/16/18 22:59 06:59 14:59 Other: # Voids 1 1 Weight 86.183 kg General appearance: The patient is alert, oriented, in no acute distress. HET: Head is normocephalic and atraumatic. Pupils are equal and reactive. Oropharynx is clear without lesions. Neck: Supple without lymphadenopathy. Trachea midline. Heart: S1 S2. Regular rate and rhythm. Lungs: No crackles or wheezes are heard. Abdomen: Soft, nontender, nondistended with bowel sounds. No peritoneal signs. No palpable organomegaly or masses. Extremities: Normal skin color and turgor. No cyanosis, rash, ulceration, clubbing, or edema. Radial and pedal pulses are 2/4 bilaterally. Neurological: No focal deficits. Strength and sensation are grossly intact. Results CBC & Chem 7: 03/16/18 06:51 03/15/18 19:47 Labs: Abnormal Lab Results - Last 24 Hours (Table) 03/15/18 03/15/18 03/15/18 Range/Units 19:47 19:47 19:47 RBC 2.51 L (3.80-5.40) m/uL Hgb 5.2 L* (11.4-16.0) gm/dL Hct 18.9 L* (34.0-46.0) % MCV 75.2 L (80.0-100.0) fL MCH 20.6 L (25.0-35.0) pg MCHC 27.4 L (31.0-37.0) g/dL RDW 19.4 H (11.5-15.5) % Nucleated RBCs 1 H (0-0) /100 WBC APTT 16.7 L (22.0-30.0) sec Glucose (74-99) mg/dL Crossmatch See Detail 03/15/18 03/15/18 03/16/18 Range/Units 19:47 21:26 06:51 RBC 2.05 L (3.80-5.40) m/uL Hgb 4.4 L* (11.4-16.0) gm/dL Hct 15.8 L* (34.0-46.0) % MCV 77.2 L (80.0-100.0) fL MCH 21.2 L (25.0-35.0) pg MCHC 27.5 L (31.0-37.0) g/dL RDW 18.6 H (11.5-15.5) % Nucleated RBCs (0-0) /100 WBC APTT (22.0-30.0) sec Glucose 102 H (74-99) mg/dL Crossmatch See Detail Assessment and Plan (1) Iron deficiency anemia Narrative/Plan: 77 year old female with a history of iron deficiency anemia status post EGD colonoscopy capsule endoscopy in the past with findings of colonic diverticulosis hiatal hernia Silviano erosions no evidence of peptic ulcer disease presents with severe symptomatic anemia abnormal outpatient CBC without overt bleeding such as hematemesis hematochezia melena maintained on daily PPI and every other day iron supplementation. Possible component of chronic blood loss. Current Visit: Yes Status: Acute Code(s): D50.9 - IRON DEFICIENCY ANEMIA, UNSPECIFIED SNOMED Code(s): 57373454 Plan: 1. Hematology consult patient may benefit from IV iron therapy to help off set constipation from oral supplementation. Hemoccult testing requested. Dr. Mccormack recommends repeating capsule study tomorrow. Hold oral iron for capsule study. Blood transfusion. Clear liquids today. NPO after mn. Inpatient endoscopy is not planned at this time. CBC monitoring. Thank you for this kind referral and the opportunity to participate in the care of your patient. This consultation was discussed with Dr. Mccormack. The impression and plan of care have been directed as dictated.
[2018-03-16] MEDS: SODIUM FERRIC GLUCONAT-SUCROSE 125 MG in SODIUM CHLORIDE 0.9% 100 ML IVPB SCH (10:43)
[2018-03-16] MEDS: MULTIVITAMINS, THERA 1 EACH TAB PO SCH (11:50)
[2018-03-16] MEDS ORDERED: FERROUS SULFATE 325 MG TAB PO SCH (12:00)
--- NOTE | 2018-03-16 13:03 | P.HPIM ---
History of Present Illness H&P Date: 03/16/18 Chief Complaint: Shortness of breath This is a 77-year-old female one of Dr. Marino's patients, she has a past medical history of hypertension, hypertensive cardiovascular disease , mitral valve prolapse, supraventricular tachycardia, rheumatoid arthritis, GERD, COPD, and recurrent C. diff colitis. 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 diff at [facility]. The patient had a recent hospitalization in January which time she presented to the hospital with hemoglobin of 4.8. She was seen in consultation by GI and patient was to have follow-up in their office with plan for iron transfusions. Patient states she has follow-up with Dr. Ortiz and was told that no more return visits were necessary at this point as she had no diarrhea and no C. diff was evident. Patient states she has had trouble following up with her physicians because her daughter had a nervous breakdown recently. Patient states she has had shortness of breath and feeling sleepy all the time for the past 2 weeks. She denies any tarry or bloody stools, no diarrhea, no fever no chills, no abdominal pain, no cough. Patient presented with hemoglobin of 5.2 and repeat was 4.4. Patient was admitted to the [facility] floor, blood transfusion and iron infusion ordered, consult with GI, oncology. Dr. Mccormack recommends capsule endoscopy tomorrow, hold oral iron. No inpatient endoscopy is planned. Diet is clear liquids. Review of Systems All systems: negative Constitutional: Reports daytime sleepiness, Denies anorexia, Denies chills, Denies fever, Denies lethargy, Denies malaise, Denies night sweats, Denies poor appetite, Denies weight loss Eyes: denies blurred vision, denies pain Ears, nose, mouth and throat: Denies dental pain, Denies dysphagia, Denies headache, Denies mouth pain, Denies sore throat, Denies vertigo Cardiovascular: Reports shortness of breath, Denies chest pain, Denies edema, Denies leg edema, Denies palpitations, Denies syncope Respiratory: Denies cough Gastrointestinal: Denies abdominal pain, Denies diarrhea, Denies loss of appetite, Denies nausea, Denies vomiting Genitourinary: Denies dysuria, Denies hematuria Musculoskeletal: Denies myalgias Integumentary: Denies pruritus, Denies rash Neurological: Denies numbness, Denies weakness Psychiatric: Denies anxiety, Denies depression Endocrine: Denies fatigue, Denies weight change Past Medical History Past Medical History: Atrial Fibrillation, Atrial Flutter, GERD/Reflux, Hyperlipidemia, Hypertension, Mitral Valve Prolapse (MVP), Rheumatoid Arthritis (RA), Thyroid Disorder Additional Past Medical History / Comment(s): OTHER HX: 03/06/14, 03/30/14, , 07/29/14 with CDIFF colitis, HYPOTHYROID, MVP, urinary incontinence, PROLAPSED MITRAL VALVE- NO PROBLEMS FOR 30 YRS. History of Any Multi-Drug Resistant Organisms: C-DIFF Date of last positivie culture/infection: 11/29/2017 per pt MDRO Source:: none Past Surgical History: Adenoidectomy, Cholecystectomy, Hysterectomy, Joint Replacement, Orthopedic Surgery, Tonsillectomy Additional Past Surgical History / Comment(s): 02/18/16 total R hip arthroplasty. Other surgical HX: BILATERAL KNEE REPLACEMENT (2003-RIGHT & 2005 - LEFT); LOWER LUMBAR LAMINECTOMYL4-L5 (2007); LEFT HIP REPLACEMENT (2012) ; RIGHT SHOULDER REPLACEMENT (2008), left total knee arthroplasty revision. Bilateral cataracts with lens implants. FECALCAL TRASPLANT TX FOR C-DIFF three times. Past Anesthesia/Blood Transfusion Reactions: No Reported Reaction Additional Past Anesthesia/Blood Transfusion Reaction / Comment(s): blood transfusion in past no reactions Past Psychological History: Anxiety, Depression Additional Psychological History / Comment(s): pt lives in own home w/ a nephew , SHE IS A . CARES FOR HERSELF BUT DOES HAVE A CLEANING LADY ONCE A MONTH. STILL DRIVES, has an electric scooter/w/c. Smoking Status: Current every day smoker Past Alcohol Use History: None Reported Additional Past Alcohol Use History / Comment(s): has smoked since 1954- 5 cig per day and stated she has no intention of quitting No alcohol use or abuse. No street drug use marijuana or medical marijuana use. Past Drug Use History: None Reported - Past Family History Mother Family Medical History: Cancer Additional Family Medical History / Comment(s): Mother at age 60 with history of emphysema and lung cancer. Father Family Medical History: CVA/TIA Additional Family Medical History / Comment(s): Father at age 74 with problems with his larynx. Sister(s) Family Medical History: Unable to Obtain Daughter(s) Family Medical History: COPD, Myocardial Infarction ([place]) Additional Family Medical History / Comment(s): Mother at age 60 yrs of emphysema/lung CA Son(s) Family Medical History: Myocardial Infarction ([place]) Additional Family Medical History / Comment(s): Father at age 74yrs with "CVA of his larynx" Medications and Allergies Home Medications Medication Instructions Recorded Confirmed Type Levothyroxine Sodium [Synthroid] 50 mcg PO QAM 03/03/14 03/15/18 History Aspirin 81 mg PO QAM 07/29/14 03/15/18 History Atenolol 100 mg PO HS 09/25/15 03/15/18 History ALPRAZolam [Xanax] 2 mg PO HS 07/17/16 03/15/18 History Disopyramide Phosphate [Norpace Cr] 150 mg PO BID 10/28/17 03/15/18 History Multivit-Min/Iron/Folic/Lutein 1 tab PO DAILY 10/28/17 03/15/18 History [Centrum Silver Women Tablet] Zolpidem [Ambien] 10 mg PO HS 10/28/17 03/15/18 History Ferrous Sulfate [Feosol] 325 mg PO DAILY #30 tab 01/17/18 03/15/18 Rx Albuterol Inhaler [Ventolin Hfa 2 puff INHALATION RT-QID PRN 03/15/18 03/15/18 History Inhaler] Citalopram Hydrobromide [CeleXA] 40 mg PO DAILY 03/15/18 03/15/18 History Esomeprazole Magnesium [NexIUM] 40 mg PO DAILY 03/15/18 03/15/18 History Latanoprost [Xalatan 0.005%] 1 drop BOTH EYES HS 03/15/18 03/15/18 History Allergies Allergy/AdvReac Type Severity Reaction Status Date / Time adhesive tape Allergy Rash/Hives Verified 03/15/18 20:05 Influenza Virus Vaccines Allergy "MAKES HER Verified 03/15/18 20:05 FEEL SICK" Sulfa (Sulfonamide Allergy Rash/Hives Verified 03/15/18 20:05 Antibiotics) amoxicillin trihydrate AdvReac Diarrhea Verified 03/15/18 20:05 [From Augmentin] ciprofloxacin [From Cipro] AdvReac Unknown Verified 03/15/18 20:05 metronidazole [From Flagyl] AdvReac Unknown Verified 03/15/18 20:05 potassium clavulanate AdvReac Diarrhea Verified 03/15/18 20:05 [From Augmentin] quinidine AdvReac BLOOD CLOTS Verified 03/15/18 20:05 Physical Exam Vitals: Vital Signs Temp Pulse Pulse Resp BP BP Pulse Ox 03/16/18 01:58 98.2 F 98/57 03/15/18 22:28 97.7 F 69 17 117/55 100 03/15/18 22:05 98.1 F 89 16 101/54 97 03/15/18 19:22 97.1 F L 63 16 119/57 100 Intake and Output 03/15/18 03/16/18 03/16/18 22:59 06:59 14:59 Other: # Voids 1 1 Weight 86.183 kg Gen: This is a obese 77-year-old female. She is in bed and appears to be in no acute distress. HEENT: Head is atraumatic, normocephalic. Pupils equal, round. Sclerae is anicteric. NECK: Supple. No JVD. No lymphadenopathy. No thyromegaly. LUNGS: Clear to auscultation. No wheezes or rhonchi. No intercostal retractions. HEART: Regular rate and rhythm. Systolic murmur. ABDOMEN: Soft. Bowel sounds are present. No masses. No tenderness. EXTREMITIES: No pedal edema. No calf tenderness. NEUROLOGICAL: Patient is awake, alert and oriented x3. Cranial nerves 2 through 12 are grossly intact. Results CBC & Chem 7: 03/16/18 06:51 03/15/18 19:47 Labs: Abnormal Lab Results - Last 24 Hours (Table) 03/15/18 03/15/18 03/15/18 Range/Units 19:47 19:47 19:47 RBC 2.51 L (3.80-5.40) m/uL Hgb 5.2 L* (11.4-16.0) gm/dL Hct 18.9 L* (34.0-46.0) % MCV 75.2 L (80.0-100.0) fL MCH 20.6 L (25.0-35.0) pg MCHC 27.4 L (31.0-37.0) g/dL RDW 19.4 H (11.5-15.5) % Nucleated RBCs 1 H (0-0) /100 WBC APTT 16.7 L (22.0-30.0) sec Glucose (74-99) mg/dL Crossmatch See Detail 03/15/18 03/15/18 03/16/18 Range/Units 19:47 21:26 06:51 RBC 2.05 L (3.80-5.40) m/uL Hgb 4.4 L* (11.4-16.0) gm/dL Hct 15.8 L* (34.0-46.0) % MCV 77.2 L (80.0-100.0) fL MCH 21.2 L (25.0-35.0) pg MCHC 27.5 L (31.0-37.0) g/dL RDW 18.6 H (11.5-15.5) % Nucleated RBCs (0-0) /100 WBC APTT (22.0-30.0) sec Glucose 102 H (74-99) mg/dL Crossmatch See Detail Thrombosis Risk Factor Assmnt - DVT/VTE Prophylaxis DVT/VTE Prophylaxis: Mechanical Prophylaxis ordered - Choose All That Apply Any of the Below Risk Factors Present?: Yes Each Factor Represents 1 point: Obesity (BMI >25) Other Risk Factors: Yes Each Risk Factor Represents 3 Points: Age 75 years or older Other congenital or acquired thrombophilia - If yes, enter type in comment: No Thrombosis Risk Factor Assessment Total Risk Factor Score: 4 Thrombosis Risk Factor Assessment Level: Moderate Risk Assessment and Plan Plan: 1. Acute anemia with history of anemia of chronic disease. No signs of bleeding. Hemoccult stool ordered. GI consult and oncology consult. Patient to be transfused 1 units of packed RBCs and one infusion of Ferrlecit. 2. History of C.Difficile colitis status post fecal transplant at [facility]. Monitor closely. Avoid antibiotics. 3. History of SVT. Stable, Norpace 150 mg twice a day. 4. Hypertension and hypertensive cardiovascular disease. Continue Norpace. 5. GERD. Continue Protonix 40 mg IV twice daily 6. Rheumatoid arthritis. 7. Hypothyroidism. Continue levothyroxine 50 MCG daily 8. Generalized anxiety disorder. Continue Xanax 2 mg every hs. 9. DVT prophylaxis. SCDs and TIMOTEO hose 10. GI prophylaxis. Protonix 40 mg daily. Patient will be admitted to the hospital for a minimum of 2 night stay. Discharge plan: Most likely return home The above impression and plan of care have been discussed and directed by signing physician. Domenica Reed nurse practitioner acting as scribe for signing physician.
--- NOTE | 2018-03-16 15:57 | P.CONS ---
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 She states that she has been worked up through gastroenterology, iron deficient state. She has been trying to take oral iron supplementation daily but admits constipation can cause her to miss doses now and again. She did well for a few years and then 2 years ago she had another episode of severe anemia requiring approximately 6-8 units of packed red blood cells. Patient did fine again until just recently, she noticed increasing shortness of breath at rest and unrealistic weakness. She contacted her primary care physician Dr. Marino who directed her to the hospital. Patient was sent to the emergency room and found to have a hemoglobin of 5.2, today it is 4.4, pending 2 units PRBCs for transfusion. MCV 77.2, MCH 21.2 MCHC 27.5, B12 202. Pt denied history of any other blood problems, no family history of blood disorders, denies bleeding of any kind, nose, urine or stool, no easy bruising, she has had some unintentional weight loss lately and loss of appetite which she attributes to being so tired. Denied headaches, nausea, vomiting, hematemesis, cough, she does have shortness of breath on exertion, no chest pain , abd pain, bloating, cramping, leg swelling, new or unusual pain. Last mammogram 2014, EGD 2016, colonoscopy 2014 Review of Systems 14 point ROS as stated in HPI Past Medical History Past Medical History: Atrial Fibrillation, Atrial Flutter, GERD/Reflux, Hyperlipidemia, Hypertension, Mitral Valve Prolapse (MVP), Rheumatoid Arthritis (RA), Thyroid Disorder Additional Past Medical History / Comment(s): OTHER HX: 03/06/14, 03/30/14, , 07/29/14 with CDIFF colitis, HYPOTHYROID, MVP, urinary incontinence, PROLAPSED MITRAL VALVE- NO PROBLEMS FOR 30 YRS. History of Any Multi-Drug Resistant Organisms: C-DIFF Year Discovered:: 11/29/2017 per pt MDRO Source:: none Past Surgical History: Adenoidectomy, Cholecystectomy, Hysterectomy, Joint Replacement, Orthopedic Surgery, Tonsillectomy Additional Past Surgical History / Comment(s): 02/18/16 total R hip arthroplasty. Other surgical HX: BILATERAL KNEE REPLACEMENT (2003-RIGHT & 2006 - LEFT); LOWER LUMBAR LAMINECTOMYL4-L5 (2007); LEFT HIP REPLACEMENT (2012) ; RIGHT SHOULDER REPLACEMENT (2008), left total knee arthroplasty revision. Bilateral cataracts with lens implants. FECALCAL TRASPLANT TX FOR C-DIFF three times. Past Anesthesia/Blood Transfusion Reactions: No Reported Reaction Additional Past Anesthesia/Blood Transfusion Reaction / Comm: blood transfusion in past no reactions Past Psychological History: Anxiety, Depression Additional Psychological History / Comment(s): pt lives in own home w/ a nephew , SHE IS A . CARES FOR HERSELF BUT DOES HAVE A CLEANING LADY ONCE A MONTH. STILL DRIVES, has an electric scooter/w/c. Smoking Status: Current every day smoker Past Alcohol Use History: None Reported Additional Past Alcohol Use History / Comment(s): has smoked since 1953- 5 cig per day and stated she has no intention of quitting No alcohol use or abuse. No street drug use marijuana or medical marijuana use. Past Drug Use History: None Reported - Past Family History Mother Family Medical History: Cancer Additional Family Medical History / Comment(s): Mother at age 60 with history of emphysema and lung cancer. Father Family Medical History: CVA/TIA Additional Family Medical History / Comment(s): Father at age 74 with problems with his larynx. Sister(s) Family Medical History: Unable to Obtain Daughter(s) Family Medical History: COPD, Myocardial Infarction (ME) Additional Family Medical History / Comment(s): Mother at age 60 yrs of emphysema/lung CA Son(s) Family Medical History: Myocardial Infarction (ME) Additional Family Medical History / Comment(s): Father at age 74yrs with "CVA of his larynx" Medications and Allergies Home Medications Medication Instructions Recorded Confirmed Type Levothyroxine Sodium [Synthroid] 50 mcg PO QAM 03/03/14 03/15/18 History Aspirin 81 mg PO QAM 07/29/14 03/15/18 History Atenolol 100 mg PO HS 09/25/15 03/15/18 History ALPRAZolam [Xanax] 2 mg PO HS 07/17/16 03/15/18 History Disopyramide Phosphate [Norpace Cr] 150 mg PO BID 10/28/17 03/15/18 History Multivit-Min/Iron/Folic/Lutein 1 tab PO DAILY 10/28/17 03/15/18 History [Centrum Silver Women Tablet] Zolpidem [Ambien] 10 mg PO HS 10/28/17 03/15/18 History Ferrous Sulfate [Feosol] 325 mg PO DAILY #30 tab 01/17/18 03/15/18 Rx Albuterol Inhaler [Ventolin Hfa 2 puff INHALATION RT-QID PRN 03/15/18 03/15/18 History Inhaler] Citalopram Hydrobromide [CeleXA] 40 mg PO DAILY 03/15/18 03/15/18 History Esomeprazole Magnesium [NexIUM] 40 mg PO DAILY 03/15/18 03/15/18 History Latanoprost [Xalatan 0.005%] 1 drop BOTH EYES HS 03/15/18 03/15/18 History Allergies Allergy/AdvReac Type Severity Reaction Status Date / Time adhesive tape Allergy Rash/Hives Verified 03/15/18 20:05 Influenza Virus Vaccines Allergy "MAKES HER Verified 03/15/18 20:05 FEEL SICK" Sulfa (Sulfonamide Allergy Rash/Hives Verified 03/15/18 20:05 Antibiotics) amoxicillin trihydrate AdvReac Diarrhea Verified 03/15/18 20:05 [From Augmentin] ciprofloxacin [From Cipro] AdvReac Unknown Verified 03/15/18 20:05 metronidazole [From Flagyl] AdvReac Unknown Verified 03/15/18 20:05 potassium clavulanate AdvReac Diarrhea Verified 03/15/18 20:05 [From Augmentin] quinidine AdvReac BLOOD CLOTS Verified 03/15/18 20:05 Physical Exam Vitals: Vital Signs Temp Pulse Pulse Resp BP BP Pulse Ox 03/16/18 15:44 97.8 F 63 16 105/64 03/16/18 15:34 98.3 F 67 18 114/60 03/16/18 15:26 98.3 F 60 18 109/61 03/16/18 07:38 98.3 F 66 15 102/62 100 03/16/18 01:58 98.2 F 98/57 03/15/18 22:28 97.7 F 69 17 117/55 100 03/15/18 22:05 98.1 F 89 16 101/54 97 03/15/18 19:22 97.1 F L 63 16 119/57 100 Intake and Output 03/16/18 03/16/18 03/16/18 06:59 14:59 22:59 Intake Total 200 0 Balance 200 0 Intake: Blood Product 0 Rc Pheresis As-3 Unit 0 [id number] Other 200 Other: # Voids 1 3 - Constitutional General appearance: average body habitus, cooperative, no acute distress - EENT Eyes: anicteric sclerae, EOMI, normal appearance ENT: hearing grossly normal, normal oropharynx - Neck Neck: no lymphadenopathy - Respiratory Respiratory: bilateral: CTA - Cardiovascular Heart sounds: normal: S1, S2 leg Peripheral Edema: bilateral: Trace - Gastrointestinal General gastrointestinal: no absent bowel sounds, no decreased bowel sounds, no distended, no hepatomegaly, no hyperactive bowel sounds, normal bowel sounds, no organomegaly, no rigid, no scaphoid, soft, no splenomegaly, no tenderness, no umbilical hernia, no ventral hernia - Integumentary Integumentary: pale - Neurologic Neurologic: CNII-XII intact - Musculoskeletal Musculoskeletal: generalized weakness, strength equal bilaterally - Psychiatric Psychiatric: A&O x's 3, appropriate affect, intact judgment & insight Results CBC & Chem 7: 03/16/18 06:51 03/15/18 19:47 Labs: Abnormal Lab Results - Last 24 Hours (Table) 03/15/18 03/15/18 03/15/18 Range/Units 19:47 19:47 19:47 RBC 2.51 L (3.80-5.40) m/uL Hgb 5.2 L* (11.4-16.0) gm/dL Hct 18.9 L* (34.0-46.0) % MCV 75.2 L (80.0-100.0) fL MCH 20.6 L (25.0-35.0) pg MCHC 27.4 L (31.0-37.0) g/dL RDW 19.4 H (11.5-15.5) % Nucleated RBCs 1 H (0-0) /100 WBC APTT 16.7 L (22.0-30.0) sec Glucose (74-99) mg/dL Crossmatch See Detail 03/15/18 03/15/18 03/16/18 Range/Units 19:47 21:26 06:51 RBC 2.05 L (3.80-5.40) m/uL Hgb 4.4 L* (11.4-16.0) gm/dL Hct 15.8 L* (34.0-46.0) % MCV 77.2 L (80.0-100.0) fL MCH 21.2 L (25.0-35.0) pg MCHC 27.5 L (31.0-37.0) g/dL RDW 18.6 H (11.5-15.5) % Nucleated RBCs (0-0) /100 WBC APTT (22.0-30.0) sec Glucose 102 H (74-99) mg/dL Crossmatch See Detail Assessment and Plan (1) Iron deficiency anemia Narrative/Plan: Cont work up per GI Supplement with parenteral iron due to increased bioavailability with better/ faster iron store replacement and fewer side effects, pt c/o constipation with the oral preparation. Pt can continue to get parenteral iron in the outpatient setting through our office if ok with PCP. PRBC transfusions to keep Hgb 7 or greater, unless symptomatic. Additional labs ordered to complete work up Current Visit: Yes Status: Chronic Priority: High Code(s): D50.9 - IRON DEFICIENCY ANEMIA, UNSPECIFIED SNOMED Code(s): 07820149 (2) B12 deficiency anemia Narrative/Plan: B12 supplement initiated inpatient, to be given daily. Continue supplement monthly outpatient. Current Visit: Yes Status: Acute Priority: Medium Code(s): D51.9 - VITAMIN B12 DEFICIENCY ANEMIA, UNSPECIFIED SNOMED Code(s): 86706240 Plan: Follow-up Dr. Acuna 4-5 weeks after discharge to reevaluate iron stores with possible continuation of parenteral iron. Can give B12 as well if needed
[2018-03-16] MEDS ORDERED: CYANOCOBALAMIN 1,000 MCG/ML 1 ML VIAL IM SCH (16:00)
[2018-03-16] MEDS ORDERED: MAGNESIUM CITRATE 296 ML BOTTLE PO ONE (17:00)
[2018-03-16] MEDS: ALBUTEROL NEBULIZED 2.5 MG/3 ML INHALATION PRN (20:13)
[2018-03-16] MEDS ORDERED: ZOLPIDEM 10 MG TAB PO SCH (21:45)
[2018-03-16] MEDS: ATENOLOL 50 MG TAB PO SCH (22:29)
[2018-03-16] MEDS: ALPRAZolam 1 MG TAB PO SCH (22:34)
[2018-03-16] MEDS: LATANOPROST 0.005% OPHTH DROPS 2.5 ML BTL BOTH EYES SCH (22:35)
[2018-03-16] MEDS: CYANOCOBALAMIN 1,000 MCG/ML 1 ML VIAL IM SCH (22:44)
[2018-03-16 23:02] LABS: Anisocytosis Slight; Basophils % (A) 0 %; Eosinophils # (A) 0.1 k/uL (0-0.7); Eosinophils % (A) 1 %; HCT 21.8 % (34.0-46.0); Hypochromasia Marked; Lymphocytes # (A) 0.8 k/uL (1.0-4.8); Lymphocytes % (A) 18 %; MCH 23.2 pg (25.0-35.0); MCHC 28.6 g/dL (31.0-37.0); MCV 81.2 fL (80.0-100.0); Mean Platelet Volume 7.4; Microcytosis Slight; Monocytes # (A) 0.3 k/uL (0-1.0); Monocytes % (A) 6 %; Neutrophils # (A) 3.5 k/uL (1.3-7.7); Neutrophils % (A) 73 %; Platelet Count 292 k/uL (150-450); Poikilocytosis Marked; RBC 2.68 m/uL (3.80-5.40); RDW 18.9 % (11.5-15.5); WBC 4.7 k/uL (3.8-10.6)
[2018-03-16 23:08] LABS: HGB 6.2 gm/dL (11.4-16.0)
[2018-03-17] MEDS: LEVOTHYROXINE 50 MCG TAB PO SCH (05:54)
[2018-03-17] MEDS: MULTIVITAMINS, THERA 1 EACH TAB PO SCH (10:11)
[2018-03-17] MEDS: ASPIRIN 81 MG PO SCH (10:12)
[2018-03-17] MEDS: CITALOPRAM HYDROBROMIDE 20 MG TAB PO SCH (10:12)
[2018-03-17] MEDS: NORPACE PO SCH ×2 (10:12→21:00)
[2018-03-17] MEDS: PANTOPRAZOLE 40 MG TABLET PO SCH (10:12)
--- NOTE | 2018-03-17 11:04 | P.PN ---
Subjective Progress Note Date: 03/17/18 This is a 77-year-old female one of Dr. Marino's patients, she has a past medical history of hypertension, hypertensive cardiovascular disease , mitral valve prolapse, supraventricular tachycardia, rheumatoid arthritis, GERD, COPD, and recurrent C. diff colitis. 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 diff at [facility] 3. The patient had a recent hospitalization in January which time she presented to the hospital with hemoglobin of 4.8. She was seen in consultation by GI and patient was to have follow-up in their office with plan for iron transfusions. Patient states she has follow-up with Dr. Ortiz and was told that no more return visits were necessary at this point as she had no diarrhea and no C. diff was evident. Patient states she has had trouble following up with her physicians because her daughter had a nervous breakdown recently. Patient states she has had shortness of breath and feeling sleepy all the time for the past 2 weeks. She denies any tarry or bloody stools, no diarrhea, no fever no chills, no abdominal pain, no cough. Patient presented with hemoglobin of 5.2 and repeat was 4.4. Patient was admitted to the [facility] floor, blood transfusion and iron infusion ordered, consult with GI, oncology. Dr. Mccormack recommends capsule endoscopy tomorrow, hold oral iron. No inpatient endoscopy is planned. Diet is clear liquids. 03/17: Repeat hemoglobin is 6.2 after 2 units of packed RBCs and patient is scheduled for transfusion of 2 more units today. Patient received 1 dose of Ferrlecit yesterday. She is undergoing capsule endoscopy today. She has had no rectal bleeding. Dr. Acuna is following with plan for follow-up in the outpatient setting for IV iron. Anticipate discharge home tomorrow. Review of Systems Constitutional: Reports daytime sleepiness, Denies anorexia, Denies chills, Denies fever, Denies lethargy, Denies malaise, Denies night sweats, Denies poor appetite, Denies weight loss Eyes: denies blurred vision, denies pain Ears, nose, mouth and throat: Denies dental pain, Denies dysphagia, Denies headache, Denies mouth pain, Denies sore throat, Denies vertigo Cardiovascular: Reports shortness of breath, Denies chest pain, Denies edema, Denies leg edema, Denies palpitations, Denies syncope Respiratory: Denies cough Gastrointestinal: Denies abdominal pain, Denies diarrhea, Denies loss of appetite, Denies nausea, Denies vomiting, denies bloody stools. Genitourinary: Denies dysuria, Denies hematuria Musculoskeletal: Denies myalgias Integumentary: Denies pruritus, Denies rash Neurological: Denies numbness, Denies weakness Psychiatric: Denies anxiety, Denies depression Endocrine: Denies fatigue, Denies weight change Objective - Vital Signs Vital signs: Vital Signs Temp 97.9 F 03/17/18 07:10 Pulse 63 03/17/18 07:10 Resp 17 03/17/18 07:57 BP 126/56 03/17/18 07:10 Pulse Ox 100 03/17/18 07:10 Intake & Output 03/16/18 03/17/18 03/17/18 18:59 06:59 18:59 Intake Total 510 0 Output Total 300 Balance 510 -300 Intake: Blood Product 310 0 Rc Pheresis 2 As3 Unit 0 0 [id number] Rc Pheresis As-3 Unit 310 [id number] Other 200 Output: Urine 300 Other: Voiding Method Bedside Commode # Voids 3 1 - Exam Gen: This is a obese 77-year-old female. She is in bed and appears to be in no acute distress at rest. HEENT: Head is atraumatic, normocephalic. Pupils equal, round. Sclerae is anicteric. NECK: Supple. No JVD. No lymphadenopathy. No thyromegaly. LUNGS: Clear to auscultation. No wheezes or rhonchi. No intercostal retractions. HEART: Regular rate and rhythm. Systolic murmur. ABDOMEN: Soft. Bowel sounds are present. No masses. No tenderness. EXTREMITIES: No pedal edema. No calf tenderness. NEUROLOGICAL: Patient is awake, alert and oriented x3. Cranial nerves 2 through 12 are grossly intact. - Labs CBC & Chem 7: 03/16/18 22:41 03/15/18 19:47 Labs: Abnormal Lab Results - Last 24 Hours (Table) 03/15/18 03/16/18 Range/Units 21:26 22:41 RBC 2.68 L (3.80-5.40) m/uL Hgb 6.2 L* D (11.4-16.0) gm/dL Hct 21.8 L (34.0-46.0) % MCH 23.2 L (25.0-35.0) pg MCHC 28.6 L (31.0-37.0) g/dL RDW 18.9 H (11.5-15.5) % Lymphocytes # 0.8 L (1.0-4.8) k/uL Crossmatch See Detail Assessment and Plan Plan: 1. Acute anemia with history of anemia of chronic disease. No signs of bleeding. Hemoccult stool ordered. GI consult and oncology consult. Patienthas been transfused 2 units of packed RBCs and scheduled for 2 more units today. He is status post one infusion of Ferrlecit. 2. History of C.Difficile colitis status post fecal transplant at [facility]. Monitor closely. Avoid antibiotics. 3. History of SVT. Stable, Norpace 150 mg twice a day. 4. Hypertension and hypertensive cardiovascular disease. Continue Norpace. 5. GERD. Continue Protonix 40 mg IV twice daily 6. Rheumatoid arthritis. 7. Hypothyroidism. Continue levothyroxine 50 MCG daily 8. Generalized anxiety disorder. Continue Xanax 2 mg every hs. 9. DVT prophylaxis. SCDs and TIMOTEO hose 10. GI prophylaxis. Protonix 40 mg daily. Discharge plan: Most likely return home tomorrow without homecare The above impression and plan of care have been discussed and directed by signing physician. Domenica Reed nurse practitioner acting as scribe for signing physician.
[2018-03-17 11:31] LABS: Anisocytosis Slight; HCT 22.4 % (34.0-46.0); Hypochromasia Marked; MCH 22.5 pg (25.0-35.0); MCHC 28.1 g/dL (31.0-37.0); MCV 79.8 fL (80.0-100.0); Mean Platelet Volume 7.8; Microcytosis Slight; Platelet Count 272 k/uL (150-450); Poikilocytosis Marked; RBC 2.81 m/uL (3.80-5.40); RDW 19.2 % (11.5-15.5); WBC 5.1 k/uL (3.8-10.6)
[2018-03-17 11:39] LABS: HGB 6.3 gm/dL (11.4-16.0)
--- NOTE | 2018-03-17 12:21 | P.PN ---
Subjective Progress Note Date: 03/17/18 Principal diagnosis: anemia severe symptomatic No bleeding. HGB 6.3 receiving blood. Capsule endoscopy started this morning. Denies abdominal pain. Nonbloody BM x 1. Objective - Vital Signs Vital signs: Vital Signs Temp 98.1 F 03/17/18 10:41 Pulse 63 03/17/18 10:41 Resp 17 03/17/18 10:41 BP 118/63 03/17/18 10:41 Pulse Ox 97 03/17/18 10:41 Intake & Output 03/16/18 03/17/18 03/17/18 18:59 06:59 18:59 Intake Total 510 310 0 Output Total 300 Balance 510 10 0 Intake: Blood Product 310 310 0 Rc As-1 Unit 0 [id number] Rc Pheresis 2 As3 Unit 0 310 [id number] Rc Pheresis As-3 Unit 310 [id number] Other 200 Output: Urine 300 Other: Voiding Method Bedside Commode # Voids 3 1 1 - Constitutional General appearance: Present: average body habitus - EENT Eyes: Present: normal appearance Ears: bilateral: normal - Neck Neck: Present: normal ROM - Respiratory Respiratory: bilateral: CTA - Cardiovascular Heart sounds: normal: S1, S2 - Gastrointestinal General gastrointestinal: Present: soft - Neurologic Neurologic: Present: CNII-XII intact - Psychiatric Psychiatric: Present: A&O x's 3 - Labs CBC & Chem 7: 03/17/18 10:55 03/15/18 19:47 Labs: Abnormal Lab Results - Last 24 Hours (Table) 03/15/18 03/16/18 03/17/18 Range/Units 21:26 22:41 10:55 RBC 2.68 L 2.81 L (3.80-5.40) m/uL Hgb 6.2 L* D 6.3 L* (11.4-16.0) gm/dL Hct 21.8 L 22.4 L (34.0-46.0) % MCV 79.8 L (80.0-100.0) fL MCH 23.2 L 22.5 L (25.0-35.0) pg MCHC 28.6 L 28.1 L (31.0-37.0) g/dL RDW 18.9 H 19.2 H (11.5-15.5) % Lymphocytes # 0.8 L (1.0-4.8) k/uL Crossmatch See Detail Assessment and Plan (1) Iron deficiency anemia Narrative/Plan: 77 year old female with a history of iron deficiency anemia status post EGD colonoscopy capsule endoscopy in the past with findings of colonic diverticulosis hiatal hernia Silviano erosions no evidence of peptic ulcer disease presents with severe symptomatic anemia abnormal outpatient CBC without overt bleeding such as hematemesis hematochezia melena maintained on daily PPI and every other day iron supplementation. Possible component of chronic blood loss. Current Visit: Yes Status: Chronic Priority: High Code(s): D50.9 - IRON DEFICIENCY ANEMIA, UNSPECIFIED SNOMED Code(s): 05089221 Plan: 1. CBC monitoring. WIll review capsule in am. PPI therapy. Assessment and plan of care discussed with Dr. Mccormack
--- NOTE | 2018-03-17 14:45 | P.PN ---
Subjective Progress Note Date: 03/17/18 Principal diagnosis: microcytic, hypochromic, iron deficient, low B12 anemia Pt seen in f/u. SHe is getting more blood today. SHe has received parenteral iron doses daily, B12 IM was initiated, she is having capsule endoscopy. Objective - Vital Signs Vital signs: Vital Signs Temp 98.1 F 03/17/18 13:55 Pulse 68 03/17/18 13:55 Resp 16 03/17/18 13:55 BP 114/66 03/17/18 13:55 Pulse Ox 97 03/17/18 10:41 Intake & Output 03/16/18 03/17/18 03/17/18 18:59 06:59 18:59 Intake Total 510 310 310 Output Total 300 Balance 510 10 310 Intake: Blood Product 310 310 310 Rc As-1 Unit 0 [id number] Rc As-1 Unit 310 [id number] Rc Pheresis 2 As3 Unit 0 310 [id number] Rc Pheresis As-3 Unit 310 [id number] Other 200 Output: Urine 300 Other: Voiding Method Bedside Commode # Voids 3 1 1 - Constitutional General appearance: Present: cooperative, no acute distress, thin - EENT Eyes: Present: anicteric sclerae, EOMI - Respiratory Respiratory: bilateral: CTA - Cardiovascular Heart sounds: normal: S1, S2 - Peripheral edema leg Peripheral Edema: bilateral: None - Gastrointestinal General gastrointestinal: Present: normal bowel sounds, soft - Integumentary Integumentary: Present: pale - Neurologic Neurologic: Present: CNII-XII intact - Musculoskeletal Musculoskeletal: Present: strength equal bilaterally - Psychiatric Psychiatric: Present: A&O x's 3, appropriate affect, intact judgment & insight - Labs CBC & Chem 7: 03/17/18 10:55 03/15/18 19:47 Labs: Abnormal Lab Results - Last 24 Hours (Table) 03/15/18 03/16/18 03/17/18 Range/Units 21:26 22:41 10:55 RBC 2.68 L 2.81 L (3.80-5.40) m/uL Hgb 6.2 L* D 6.3 L* (11.4-16.0) gm/dL Hct 21.8 L 22.4 L (34.0-46.0) % MCV 79.8 L (80.0-100.0) fL MCH 23.2 L 22.5 L (25.0-35.0) pg MCHC 28.6 L 28.1 L (31.0-37.0) g/dL RDW 18.9 H 19.2 H (11.5-15.5) % Lymphocytes # 0.8 L (1.0-4.8) k/uL Crossmatch See Detail Assessment and Plan (1) Iron deficiency anemia Current Visit: Yes Status: Chronic Priority: High Code(s): D50.9 - IRON DEFICIENCY ANEMIA, UNSPECIFIED SNOMED Code(s): 14969060 (2) B12 deficiency anemia Current Visit: Yes Status: Acute Priority: Medium Code(s): D51.9 - VITAMIN B12 DEFICIENCY ANEMIA, UNSPECIFIED SNOMED Code(s): 53064971 Plan: Pt will f/u with Dr. Acuna to continue parenteral iron supplementation as oral supplement is not adequate. Appt in chart. We can also continue B12 monthly
[2018-03-17] MEDS: oxyCODONE-APAP 5-325MG 1 EACH TAB PO PRN ×2 (14:52→21:00)
[2018-03-17] MEDS: SODIUM FERRIC GLUCONAT-SUCROSE 125 MG in SODIUM CHLORIDE 0.9% 100 ML IVPB SCH (17:51)
[2018-03-17] MEDS: ALPRAZolam 1 MG TAB PO SCH (20:59)
[2018-03-17] MEDS: ATENOLOL 50 MG TAB PO SCH (20:59)
[2018-03-17] MEDS: LATANOPROST 0.005% OPHTH DROPS 2.5 ML BTL BOTH EYES SCH (21:00)
[2018-03-17] MEDS: ZOLPIDEM 10 MG TAB PO PRN (21:00)
[2018-03-17] MEDS: CYANOCOBALAMIN 1,000 MCG/ML 1 ML VIAL IM SCH (21:00)
[2018-03-18] MEDS: oxyCODONE-APAP 5-325MG 1 EACH TAB PO PRN ×2 (04:13→12:55)
[2018-03-18] MEDS: ALBUTEROL NEBULIZED 2.5 MG/3 ML INHALATION PRN (04:29)
[2018-03-18] MEDS: LEVOTHYROXINE 50 MCG TAB PO SCH (06:00)
[2018-03-18 07:24] VITALS: BP 119/66; PULSE 88; RESP 20; TEMP 97.9
[2018-03-18] MEDS: MULTIVITAMINS, THERA 1 EACH TAB PO SCH (08:46)
[2018-03-18] MEDS: PANTOPRAZOLE 40 MG TABLET PO SCH (08:46)
[2018-03-18] MEDS: NORPACE PO SCH (08:46)
[2018-03-18] MEDS: CITALOPRAM HYDROBROMIDE 20 MG TAB PO SCH (08:46)
[2018-03-18] MEDS: ASPIRIN 81 MG PO SCH (08:46)
[2018-03-18 09:33] LABS: Anisocytosis Slight; HCT 28.4 % (34.0-46.0); Hypochromasia Marked; MCHC 29.6 g/dL (31.0-37.0); MCV 84.2 fL (80.0-100.0); Mean Platelet Volume 7.7; Microcytosis Slight; Platelet Count 248 k/uL (150-450); Poikilocytosis Marked; RBC 3.37 m/uL (3.80-5.40); RDW 18.8 % (11.5-15.5); WBC 8.4 k/uL (3.8-10.6)
[2018-03-18] MEDS: SODIUM FERRIC GLUCONAT-SUCROSE 125 MG in SODIUM CHLORIDE 0.9% 100 ML IVPB SCH ×2 (09:44→10:05)
[2018-03-18 09:46] LABS: HGB 8.4 gm/dL (11.4-16.0)
--- NOTE | 2018-03-18 11:34 | P.PN ---
Subjective Progress Note Date: 03/18/18 Principal diagnosis: anemia severe symptomatic No bleeding. Passing nonbloody bowel movements. Hemoglobin 8.4. Received IV iron. Small bowel capsule endoscopy complete preliminary report no active bleeding. Feels well. Denies abdominal pain. Objective - Vital Signs Vital signs: Vital Signs Temp 97.9 F 03/18/18 07:22 Pulse 88 03/18/18 07:22 Resp 20 03/18/18 07:22 BP 119/66 03/18/18 07:22 Pulse Ox 96 03/18/18 07:22 Intake & Output 03/17/18 03/18/18 03/18/18 18:59 06:59 18:59 Intake Total 970 550 150 Balance 970 550 150 Intake: Intake, IV Titration 100 Amount Sodium Ferric Gluconat- 100 Sucrose 125 mg In Sodium Chloride 0.9% 100 ml @ 100 mls/hr IVPB DAILY [facility] Rx#:[id number] Oral 350 450 150 Blood Product 620 Rc As-1 Unit 310 [id number] Rc As-1 Unit 310 [id number] Other: Voiding Method Bedside Commode Bedside Commode # Voids 1 2 - Exam General appearance: The patient is alert, oriented, in no acute distress. HET: Head is normocephalic and atraumatic. Pupils are equal and reactive. Oropharynx is clear without lesions. Neck: Supple without lymphadenopathy. Trachea midline. Heart: S1 S2. Regular rate and rhythm. Lungs: No crackles or wheezes are heard. Abdomen: Soft, nontender, nondistended with bowel sounds. No peritoneal signs. No palpable organomegaly or masses. Extremities: Normal skin color and turgor. No cyanosis, rash, ulceration, clubbing, or edema. Radial and pedal pulses are 2/4 bilaterally. Neurological: No focal deficits. Strength and sensation are grossly intact. - Labs CBC & Chem 7: 03/18/18 08:31 03/15/18 19:47 Labs: Abnormal Lab Results - Last 24 Hours (Table) 03/15/18 03/17/18 03/18/18 Range/Units 21:26 10:55 08:31 RBC 2.81 L 3.37 L (3.80-5.40) m/uL Hgb 6.3 L* 8.4 L D (11.4-16.0) gm/dL Hct 22.4 L 28.4 L (34.0-46.0) % MCV 79.8 L (80.0-100.0) fL MCH 22.5 L (25.0-35.0) pg MCHC 28.1 L 29.6 L (31.0-37.0) g/dL RDW 19.2 H 18.8 H (11.5-15.5) % Crossmatch See Detail Assessment and Plan (1) Iron deficiency anemia Narrative/Plan: 77 year old female with a history of iron deficiency anemia status post EGD colonoscopy capsule endoscopy in the past with findings of colonic diverticulosis hiatal hernia Silviano erosions no evidence of peptic ulcer disease presents with severe symptomatic anemia abnormal outpatient CBC without overt bleeding such as hematemesis hematochezia melena maintained on daily PPI and every other day iron supplementation. Status post small bowel capsule endoscopy no evidence of active bleeding. Current Visit: Yes Status: Chronic Priority: High Code(s): D50.9 - IRON DEFICIENCY ANEMIA, UNSPECIFIED SNOMED Code(s): 96918718 Plan: 1. Discharge per medicine hematology. We will defer to hematology service for iron supplementation recommendations. Will follow as needed. Assessment and plan of care discussed with Dr. Mccormack
--- NOTE | 2018-03-18 14:15 | P.DS ---
Providers Date of admission: 03/15/18 20:57 Expected date of discharge: 03/18/18 Attending physician: Angel Snell Consults: 03/16/18 09:48 Consult Physician Routine Consulting Provider: Sameera Mccormack Consult Reason/Comments: chronic anemia Do you want consulting provider notified?: Yes 03/16/18 09:51 Consult Physician Routine Consulting Provider: Eddie Acuna Consult Reason/Comments: chronic anemia Do you want consulting provider notified?: Yes Primary care physician: Franklyn Marino [facility] Course: This is a 77-year-old female one of Dr. Marino's patients, she has a past medical history of hypertension, hypertensive cardiovascular disease , mitral valve prolapse, supraventricular tachycardia, rheumatoid arthritis, GERD, COPD, and recurrent C. diff colitis. 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 diff at [facility]. The patient had a recent hospitalization in January which time she presented to the hospital with hemoglobin of 4.8. She was seen in consultation by GI and patient was to have follow-up in their office with plan for iron transfusions. Patient states she has follow-up with Dr. Ortiz and was told that no more return visits were necessary at this point as she had no diarrhea and no C. diff was evident. Patient states she has had trouble following up with her physicians because her daughter had a nervous breakdown recently. Patient states she has had shortness of breath and feeling sleepy all the time for the past 2 weeks. She denies any tarry or bloody stools, no diarrhea, no fever no chills, no abdominal pain, no cough. Patient presented with hemoglobin of 5.2 and repeat was 4.4. Patient was admitted to the [facility] floor, blood transfusion and iron infusion ordered, consult with GI, oncology. Dr. Mccormack recommends capsule endoscopy tomorrow, hold oral iron. No inpatient endoscopy is planned. Diet is clear liquids. 03/17: Repeat hemoglobin is 6.2 after 2 units of packed RBCs and patient is scheduled for transfusion of 2 more units today. Patient received 1 dose of Ferrlecit yesterday. She is undergoing capsule endoscopy today. She has had no rectal bleeding. Dr. Acuna is following with plan for follow-up in the outpatient setting for IV iron. Anticipate discharge home tomorrow. 03/18: Oncology also added and B12 IM and plan is to follow-up with Dr. Acuna for parenteral iron supplementation and appointment has been made. Patient is to continue on B12 monthly injections. Capsule endoscopy was completed yesterday. Patient has received a total of 4 units of packed RBCs. She has received Ferrlecit infusion 2 doses Hemoglobin this morning Patient denies having any abdominal pain, no bloody stools or tarry stools. Patient will be discharged home today in stable condition. Discharge diagnoses: 1. Acute anemia with history of anemia of chronic disease. 2. History of C.Difficile colitis status post fecal transplant at [facility]. 3. History of SVT. Stable 4. Hypertension and hypertensive cardiovascular disease. 5. GERD. 6. Rheumatoid arthritis. 7. Hypothyroidism. 8. Generalized anxiety disorder. Discharge plan: home without homecare The above impression and plan of care have been discussed and directed by signing physician. Domenica Reed nurse practitioner acting as scribe for signing physician. Patient Condition at Discharge: Good Plan - Discharge Summary Discharge Rx Participant: No New Discharge Prescriptions: No Action Levothyroxine Sodium [Synthroid] 50 mcg PO QAM Aspirin 81 mg PO QAM Atenolol 100 mg PO HS ALPRAZolam [Xanax] 2 mg PO HS Zolpidem [Ambien] 10 mg PO HS Multivit-Min/Iron/Folic/Lutein [Centrum Silver Women Tablet] 1 tab PO DAILY Disopyramide Phosphate [Norpace Cr] 150 mg PO BID Ferrous Sulfate [Feosol] 325 mg PO DAILY #30 tab Esomeprazole Magnesium [NexIUM] 40 mg PO DAILY Citalopram Hydrobromide [CeleXA] 40 mg PO DAILY Latanoprost [Xalatan 0.005%] 1 drop BOTH EYES HS Albuterol Inhaler [Ventolin Hfa Inhaler] 2 puff INHALATION RT-QID PRN PRN Reason: Shortness Of Breath Discharge Medication List Levothyroxine Sodium [Synthroid] 50 mcg PO QAM 03/03/14 [History] Aspirin 81 mg PO QAM 07/29/14 [History] Atenolol 100 mg PO HS 09/25/15 [History] ALPRAZolam [Xanax] 2 mg PO HS 07/17/16 [History] Disopyramide Phosphate [Norpace Cr] 150 mg PO BID 10/28/17 [History] Multivit-Min/Iron/Folic/Lutein [Centrum Silver Women Tablet] 1 tab PO DAILY [History] Zolpidem [Ambien] 10 mg PO HS 10/28/17 [History] Ferrous Sulfate [Feosol] 325 mg PO DAILY #30 tab 01/17/18 [Rx] Albuterol Inhaler [Ventolin Hfa Inhaler] 2 puff INHALATION RT-QID PRN 03/15/18 [ History] Citalopram Hydrobromide [CeleXA] 40 mg PO DAILY 03/15/18 [History] Esomeprazole Magnesium [NexIUM] 40 mg PO DAILY 03/15/18 [History] Latanoprost [Xalatan 0.005%] 1 drop BOTH EYES HS 03/15/18 [History] Follow up Appointment(s)/Referral(s): Eddie Acuna MD [STAFF PHYSICIAN] - 04/21/18 2:30 pm (This visit is at the [facility] office ) Franklyn Marino DO [Primary Care Provider] - 1 Week (Office will call patient to make follow up appointment) Patient Instructions/Handouts: Anemia (DC) Activity/Diet/Wound Care/Special Instructions: Pt will be contacted by Dr. Acuna's office to schedule iron infusions in the next week. B12 1000mcg IM monthly Discharge Disposition: HOME SELF-CARE
== END 2018-03-18 13:34 | disposition home or self-care (01) | DRG 812 ==
LOC: EC 19:15 → 4SSUR 20:57
PROVIDERS: ADMIT Internal Medicine Geriatric Medicine; ATTEND Internal Medicine Geriatric Medicine
PROC: 30230N1 Transfusion of Nonautologous Red Blood Cells into Peripheral Vein, Open Approach (ICD-10-PCS; principal; 2018-03-16)
DX: D50.9 Iron deficiency anemia, unspecified (principal); D63.8 Anemia in other chronic diseases classified elsewhere; D51.9 Vitamin B12 deficiency anemia, unspecified; I34.1 Nonrheumatic mitral (valve) prolapse; I11.9 Hypertensive heart disease without heart failure; J44.9 Chronic obstructive pulmonary disease, unspecified; M06.9 Rheumatoid arthritis, unspecified; K59.03 Drug induced constipation; T45.4X5A Adverse effect of iron and its compounds, initial encounter; K44.9 Diaphragmatic hernia without obstruction or gangrene; K57.30 Diverticulosis of large intestine without perforation or abscess without bleeding; K21.9 Gastro-esophageal reflux disease without esophagitis; E03.9 Hypothyroidism, unspecified; R32 Unspecified urinary incontinence; E78.5 Hyperlipidemia, unspecified; F41.1 Generalized anxiety disorder; F32.9 Major depressive disorder, single episode, unspecified; E66.9 Obesity, unspecified; Z68.30 Body mass index [BMI] 30.0-30.9, adult; F17.210 Nicotine dependence, cigarettes, uncomplicated; Z71.6 Tobacco abuse counseling; Z79.82 Long term (current) use of aspirin; Z79.890 Hormone replacement therapy; Z79.899 Other long term (current) drug therapy; Z86.79 Personal history of other diseases of the circulatory system; Z90.710 Acquired absence of both cervix and uterus; Z86.19 Personal history of other infectious and parasitic diseases; Z90.49 Acquired absence of other specified parts of digestive tract; Z94.89 Other transplanted organ and tissue status; Z96.653 Presence of artificial knee joint, bilateral; Z96.643 Presence of artificial hip joint, bilateral; Z96.611 Presence of right artificial shoulder joint; Z98.42 Cataract extraction status, left eye; Z98.41 Cataract extraction status, right eye; Z96.1 Presence of intraocular lens; Z88.0 Allergy status to penicillin; Z88.7 Allergy status to serum and vaccine; Z88.8 Allergy status to other drugs, medicaments and biological substances; Z91.048 Other nonmedicinal substance allergy status; Z82.5 Family history of asthma and other chronic lower respiratory diseases; Z80.1 Family history of malignant neoplasm of trachea, bronchus and lung; Z82.3 Family history of stroke; Z82.49 Family history of ischemic heart disease and other diseases of the circulatory system
CPT/HCPCS: 36415; 80053; 85025; 85027; 85610; 85730; 86850; 86870; 86880; 86900; 86901; 86902; 86920; 91110; 93005; 94640; 99285

== ENCOUNTER → 2018-03-15 | Outpatient (CLI) | payer MEDICARE ==
[2018-03-15 14:51] LABS: Anisocytosis Slight; Hypochromasia Marked; MCH 20.4 pg (25.0-35.0); MCHC 26.4 g/dL (31.0-37.0); Mean Platelet Volume 6.7; Microcytosis Slight; Platelet Count 318 k/uL (150-450); Poikilocytosis Moderate; RBC 2.33 m/uL (3.80-5.40); RDW 18.6 % (11.5-15.5); Reticulocyte % 5.2 % (0.5-2.0)
[2018-03-15 15:03] LABS: MCV 77.5 fL (80.0-100.0)
[2018-03-15 15:10] LABS: HCT 18.1 % (34.0-46.0)
[2018-03-15 15:23] LABS: HGB 4.8 gm/dL (11.4-16.0)
[2018-03-15 16:49] LABS: Band Neutrophils % 1 %; Neutrophils % (M) 78 %; Nucleated Red Blood Cells 3 /100 WBC (0-0); Total Cells Counted 200
[2018-03-15 16:50] LABS: Eosinophils # (M) 0.05 k/uL (0-0.7); Lymphocytes # (M) 0.74 k/uL (1.0-4.8); Monocytes # (M) 0.42 k/uL (0-1.0); Ovalocytes Present; Poikilocytosis (M) Present; Polychromasia Present; WBC 5.3 k/uL (3.8-10.6)
[2018-03-15 16:52] LABS: Target Cells Present
[2018-03-15 19:22] LABS: Anion Gap 6.8 mmol/L (4.00-12.00); Calcium 8.3 mg/dL (8.7-10.3); Carbon Dioxide 25.2 mmol/L (21.6-31.8); Iron Saturation 1.54 (12.00-45.00); Potassium 3.2 mmol/L (3.5-5.5)
== END | disposition home or self-care (01) ==
LOC: LABWHC1 12:52
PROVIDERS: ATTEND Family Medicine
DX: D64.9 Anemia, unspecified (principal)
CPT/HCPCS: 36415; 80048; 82728; 83540; 83550; 85025; 85045

== ENCOUNTER 2018-03-18 19:05 | Inpatient (IN) | payer MEDICARE ==
[2018-03-18] MEDS ORDERED: DEXAMETHASONE SOD PHOSPHATE 10 MG/ML 1 ML VIAL IV STA (19:11)
[2018-03-18] MEDS ORDERED: IPRATROPIUM-ALBUTEROL 3 ML NEB INHALATION STA (19:11)
[2018-03-18] MEDS ORDERED: FUROSEMIDE 10 MG/ML 4 ML VIAL IV STA ×2 (19:16→23:14)
--- NOTE | 2018-03-18 19:21 | ED ---
General Adult HPI - General Chief complaint: Shortness of Breath Stated complaint: MERVIN Time Seen by Provider: 03/18/18 19:09 Source: patient, EMS, RN notes reviewed, old records reviewed Mode of arrival: EMS Limitations: no limitations - History of Present Illness Initial comments: 77-year-old female with difficulty breathing. Symptoms began approximately 5 hours prior to arrival. History is somewhat limited secondary to clinical presentation. Patient was found by paramedics in severe respiratory distress, hypertensive, tachycardic tachypneic. Patient was placed on CPAP and transported to the emergency department. She was admitted to this hospital with anemia and received 4 units of packed RBCs over the past 24 hours. She is currently being evaluated for COPD and takes albuterol as needed at home. No fever. No chest pain. - Related Data Home Medications Medication Instructions Recorded Confirmed Levothyroxine Sodium [Synthroid] 50 mcg PO QAM 03/03/14 03/18/18 Aspirin 81 mg PO QAM 07/29/14 03/18/18 Atenolol 100 mg PO HS 09/25/15 03/18/18 ALPRAZolam [Xanax] 2 mg PO HS 07/17/16 03/18/18 Disopyramide Phosphate [Norpace Cr] 150 mg PO BID 10/28/17 03/18/18 Multivit-Min/Iron/Folic/Lutein 1 tab PO DAILY 10/28/17 03/18/18 [Centrum Silver Women Tablet] Zolpidem [Ambien] 10 mg PO HS 10/28/17 03/18/18 Albuterol Inhaler [Ventolin Hfa 2 puff INHALATION RT-QID PRN 03/15/18 03/18/18 Inhaler] Citalopram Hydrobromide [CeleXA] 40 mg PO DAILY 03/15/18 03/18/18 Esomeprazole Magnesium [NexIUM] 40 mg PO DAILY 03/15/18 03/18/18 Latanoprost [Xalatan 0.005%] 1 drop BOTH EYES HS 03/15/18 03/18/18 Previous Rx's Medication Instructions Recorded Ferrous Sulfate [Feosol] 325 mg PO DAILY #30 tab 01/17/18 Allergies Allergy/AdvReac Type Severity Reaction Status Date / Time adhesive tape Allergy Rash/Hives Verified 03/18/18 20:13 Influenza Virus Vaccines Allergy "MAKES HER Verified 03/18/18 20:13 FEEL SICK" Sulfa (Sulfonamide Allergy Rash/Hives Verified 03/18/18 20:13 Antibiotics) amoxicillin trihydrate AdvReac Diarrhea Verified 03/18/18 20:13 [From Augmentin] ciprofloxacin [From Cipro] AdvReac Unknown Verified 03/18/18 20:13 metronidazole [From Flagyl] AdvReac Unknown Verified 03/18/18 20:13 potassium clavulanate AdvReac Diarrhea Verified 03/18/18 20:13 [From Augmentin] quinidine AdvReac BLOOD CLOTS Verified 03/18/18 20:13 Review of Systems ROS Statement: Those systems with pertinent positive or pertinent negative responses have been documented in the HPI. ROS Other: All systems not noted in ROS Statement are negative. Past Medical History Past Medical History: Atrial Fibrillation, Atrial Flutter, GERD/Reflux, Hyperlipidemia, Hypertension, Mitral Valve Prolapse (MVP), Rheumatoid Arthritis (RA), Thyroid Disorder Additional Past Medical History / Comment(s): OTHER HX: 03/06/14, 03/30/14, , 07/29/14 with CDIFF colitis, HYPOTHYROID, MVP, urinary incontinence, PROLAPSED MITRAL VALVE- NO PROBLEMS FOR 30 YRS. History of Any Multi-Drug Resistant Organisms: C-DIFF Date of last positivie culture/infection: 11/29/2017 per pt MDRO Source:: none Past Surgical History: Adenoidectomy, Cholecystectomy, Hysterectomy, Joint Replacement, Orthopedic Surgery, Tonsillectomy Additional Past Surgical History / Comment(s): 02/18/16 total R hip arthroplasty. Other surgical HX: BILATERAL KNEE REPLACEMENT (2003-RIGHT & 2005 - LEFT); LOWER LUMBAR LAMINECTOMYL4-L5 (2007); LEFT HIP REPLACEMENT (2012) ; RIGHT SHOULDER REPLACEMENT (2008), left total knee arthroplasty revision. Bilateral cataracts with lens implants. FECALCAL TRASPLANT TX FOR C-DIFF three times. Past Anesthesia/Blood Transfusion Reactions: No Reported Reaction Additional Past Anesthesia/Blood Transfusion Reaction / Comment(s): blood transfusion in past no reactions Past Psychological History: Anxiety, Depression Smoking Status: Current every day smoker Past Alcohol Use History: None Reported Past Drug Use History: None Reported - Past Family History Mother Family Medical History: Cancer Additional Family Medical History / Comment(s): Mother at age 60 with history of emphysema and lung cancer. Father Family Medical History: CVA/TIA Additional Family Medical History / Comment(s): Father at age 74 with problems with his larynx. Sister(s) Family Medical History: Unable to Obtain Daughter(s) Family Medical History: COPD, Myocardial Infarction (OK) Additional Family Medical History / Comment(s): Mother at age 60 yrs of emphysema/lung CA Son(s) Family Medical History: Myocardial Infarction (OK) Additional Family Medical History / Comment(s): Father at age 74yrs with "CVA of his larynx" General Exam Limitations: no limitations General appearance: alert, in distress Head exam: Present: atraumatic, normocephalic Eye exam: Present: normal appearance, PERRL Neck exam: Present: normal inspection. Absent: tenderness, meningismus Respiratory exam: Present: respiratory distress, wheezes, rales Cardiovascular Exam: Present: normal rhythm, tachycardia GI/Abdominal exam: Present: soft. Absent: distended, tenderness, guarding Extremities exam: Present: pedal edema (Trace edema) Neurological exam: Present: alert, oriented X3. Absent: motor sensory deficit Psychiatric exam: Present: anxious Skin exam: Present: warm, dry, intact. Absent: cyanosis, diaphoretic Course Vital Signs 03/18/18 03/18/18 03/18/18 19:08 19:36 19:42 Temperature 97.5 F L Pulse Rate 105 H 82 82 Respiratory 29 H Rate Blood Pressure 165/100 O2 Sat by Pulse 94 L Oximetry 03/18/18 03/18/18 20:26 21:06 Temperature Pulse Rate 79 69 Respiratory 22 19 Rate Blood Pressure 117/78 88/61 O2 Sat by Pulse 97 97 Oximetry EKG Findings - EKG Comments: EKG Findings:: EKG: Sinus tachycardia QRS slightly widened, 100 ms, ventricular rate 104, PA interval 192, no ST segment elevation. Medical Decision Making - Medical Decision Making 77-year-old female presented in respiratory distress. Patient was discharged earlier today after receiving transfusion for anemia. She had bilateral Rales on exam. Chest x-ray does show coarse lung markings. Patient has mildly elevated white blood cell count at 12.1, hemoglobin is stable 9.3, CMP is within normal limits, BNP is elevated 2002 and 40. After treatment with BiPAP and Lasix, patient's symptoms are somewhat improved. Vital signs normalized. She will be kept in observation for several doses of diuretics. Symptoms likely related to fluid overload secondary to transfusion. - Lab Data Result diagrams: 03/18/18 19:20 03/18/18 19:20 Lab Results 03/18/18 03/18/18 03/18/18 Range/Units 19:20 19:20 19:20 WBC 12.1 H (3.8-10.6) k/uL RBC 3.85 (3.80-5.40) m/uL Hgb 9.3 L (11.4-16.0) gm/dL Hct 32.2 L (34.0-46.0) % MCV 83.6 (80.0-100.0) fL MCH 24.1 L (25.0-35.0) pg MCHC 28.8 L (31.0-37.0) g/dL RDW 19.4 H (11.5-15.5) % Plt Count 293 (150-450) k/uL Neutrophils % 88 % Lymphocytes % 7 % Monocytes % 4 % Eosinophils % 1 % Basophils % 0 % Neutrophils # 10.6 H (1.3-7.7) k/uL Lymphocytes # 0.8 L (1.0-4.8) k/uL Monocytes # 0.5 (0-1.0) k/uL Eosinophils # 0.1 (0-0.7) k/uL Basophils # 0.0 (0-0.2) k/uL Hypochromasia Marked Poikilocytosis Marked Anisocytosis Slight Microcytosis Slight PT (9.0-12.0) sec INR (<1.2) APTT (22.0-30.0) sec Sodium 137 (137-145) mmol/L Potassium 4.0 (3.5-5.1) mmol/L Chloride 105 (98-107) mmol/L Carbon Dioxide 22 (22-30) mmol/L Anion Gap 10 mmol/L BUN 10 (7-17) mg/dL Creatinine 0.55 (0.52-1.04) mg/dL Est GFR (CKD-EPI)AfAm >90 (>60 ml/min/1.73 sqM) Est GFR (CKD-EPI)NonAf >90 (>60 ml/min/1.73 sqM) Glucose 209 H (74-99) mg/dL POC Glucose (mg/dL) (75-99) mg/dL POC Glu [employer] Production Supervisor ID Calcium 8.4 (8.4-10.2) mg/dL Magnesium 1.9 (1.6-2.3) mg/dL Total Bilirubin 1.2 (0.2-1.3) mg/dL AST 42 H (14-36) U/L ALT 20 (9-52) U/L Alkaline Phosphatase 83 (38-126) U/L Total Creatine Kinase 37 (30-135) U/L CK-MB (CK-2) 0.5 (0.0-2.4) ng/mL CK-MB (CK-2) Rel Index 1.4 Troponin I <0.012 (0.000-0.034) ng/mL NT-Pro-B Natriuret Pep pg/mL Total Protein 6.9 (6.3-8.2) g/dL Albumin 3.7 (3.5-5.0) g/dL 03/18/18 03/18/18 03/18/18 Range/Units 19:20 19:20 19:28 WBC (3.8-10.6) k/uL RBC (3.80-5.40) m/uL Hgb (11.4-16.0) gm/dL Hct (34.0-46.0) % MCV (80.0-100.0) fL MCH (25.0-35.0) pg MCHC (31.0-37.0) g/dL RDW (11.5-15.5) % Plt Count (150-450) k/uL Neutrophils % % Lymphocytes % % Monocytes % % Eosinophils % % Basophils % % Neutrophils # (1.3-7.7) k/uL Lymphocytes # (1.0-4.8) k/uL Monocytes # (0-1.0) k/uL Eosinophils # (0-0.7) k/uL Basophils # (0-0.2) k/uL Hypochromasia Poikilocytosis Anisocytosis Microcytosis PT 11.3 (9.0-12.0) sec INR 1.1 (<1.2) APTT 22.9 (22.0-30.0) sec Sodium (137-145) mmol/L Potassium (3.5-5.1) mmol/L Chloride (98-107) mmol/L Carbon Dioxide (22-30) mmol/L Anion Gap mmol/L BUN (7-17) mg/dL Creatinine (0.52-1.04) mg/dL Est GFR (CKD-EPI)AfAm (>60 ml/min/1.73 sqM) Est GFR (CKD-EPI)NonAf (>60 ml/min/1.73 sqM) Glucose (74-99) mg/dL POC Glucose (mg/dL) 228 H (75-99) mg/dL POC Glu [employer] Production Supervisor ID Bautista Sin Calcium (8.4-10.2) mg/dL Magnesium (1.6-2.3) mg/dL Total Bilirubin (0.2-1.3) mg/dL AST (14-36) U/L ALT (9-52) U/L Alkaline Phosphatase (38-126) U/L Total Creatine Kinase (30-135) U/L CK-MB (CK-2) (0.0-2.4) ng/mL CK-MB (CK-2) Rel Index Troponin I (0.000-0.034) ng/mL NT-Pro-B Natriuret Pep 2240 pg/mL Total Protein (6.3-8.2) g/dL Albumin (3.5-5.0) g/dL Critical Care Time Critical Care Time: Yes Total Critical Care Time: 35 Disposition Clinical Impression: Fluid overload, Dyspnea Disposition: ADMITTED IP TO THIS [facility] Condition: Stable Is patient prescribed a controlled substance at d/c from ED?: No Referrals: Franklyn Marino DO [Primary Care Provider] - 1-2 days Decision to Admit Reason: Admit from EC Decision Date: 03/18/18 Decision Time: 22:06
[2018-03-18 19:34] LABS: Glucose,Whole Blood 228 mg/dL (75-99)
--- NOTE | 2018-03-18 19:44 | XR ---
EXAMINATION TYPE: XR chest 1V portable DATE OF EXAM: 03/18/2018 COMPARISON: 01/14/2018 HISTORY: Difficulty breathing TECHNIQUE: Single frontal view of the chest is obtained. FINDINGS: Heart is enlarged. There is no gross heart failure. There is moderate coarsening of the vilma ng markings. There are chest leads. There is right shoulder prosthesis. There is no definite pleural effusion. Bony thorax appears intact. IMPRESSION: Pulmonary fibrosis. No significant change.
[2018-03-18 19:48] LABS: INR 1.1 (<1.2); Partial Thromboplastin Time 22.9 sec (22.0-30.0); Prothrombin Time 11.3 sec (9.0-12.0)
[2018-03-18 19:50] LABS: ALT 20 U/L (9-52); AST 42 U/L (14-36); Albumin 3.7 g/dL (3.5-5.0); Alkaline Phosphatase 83 U/L (38-126); Anion Gap 10 mmol/L; Blood Urea Nitrogen 10 mg/dL (7-17); Calcium 8.4 mg/dL (8.4-10.2); Carbon Dioxide 22 mmol/L (22-30); Chloride 105 mmol/L (98-107); Glucose 209 mg/dL (74-99); Magnesium 1.9 mg/dL (1.6-2.3); Sodium 137 mmol/L (137-145); Total Bilirubin 1.2 mg/dL (0.2-1.3); Total Protein 6.9 g/dL (6.3-8.2)
[2018-03-18 19:51] LABS: Creatine Kinase 37 U/L (30-135)
[2018-03-18 19:58] LABS: Anisocytosis Slight; Basophils % (A) 0 %; Eosinophils # (A) 0.1 k/uL (0-0.7); Eosinophils % (A) 1 %; HCT 32.2 % (34.0-46.0); HGB 9.3 gm/dL (11.4-16.0); Hypochromasia Marked; Lymphocytes # (A) 0.8 k/uL (1.0-4.8); Lymphocytes % (A) 7 %; MCH 24.1 pg (25.0-35.0); MCHC 28.8 g/dL (31.0-37.0); MCV 83.6 fL (80.0-100.0); Mean Platelet Volume 7.6; Microcytosis Slight; Monocytes # (A) 0.5 k/uL (0-1.0); Monocytes % (A) 4 %; Neutrophils # (A) 10.6 k/uL (1.3-7.7); Neutrophils % (A) 88 %; Platelet Count 293 k/uL (150-450); Poikilocytosis Marked; RBC 3.85 m/uL (3.80-5.40); RDW 19.4 % (11.5-15.5); WBC 12.1 k/uL (3.8-10.6)
[2018-03-18 20:04] LABS: Creatine Kinase MB 0.5 ng/mL (0.0-2.4); Troponin I <0.012 ng/mL (0.000-0.034)
[2018-03-18] MEDS ORDERED: NALOXONE 0.4 MG/ML 1 ML VIAL IV PRN (21:59)
[2018-03-18] MEDS ORDERED: ACETAMINOPHEN TAB 325 MG TAB PO PRN (21:59)
[2018-03-18] MEDS ORDERED: ALBUTEROL NEBULIZED 2.5 MG/3 ML INHALATION PRN (23:16)
[2018-03-18 23:18] VITALS: BMI 31.4
[2018-03-18] MEDS: IPRATROPIUM-ALBUTEROL 3 ML NEB INHALATION SCH (23:42)
[2018-03-18] MEDS ORDERED: ZOLPIDEM 10 MG TAB ONE (23:50)
[2018-03-18] MEDS: DISOPYRAMIDE 150 MG PO SCH (23:52)
[2018-03-18] MEDS: ALPRAZolam 1 MG TAB PO SCH (23:52)
[2018-03-18] MEDS: ZOLPIDEM 10 MG TAB PO SCH (23:52)
[2018-03-18] MEDS: oxyCODONE-APAP 10-325MG 1 EACH TAB PO PRN (23:52)
[2018-03-19] MEDS: PANTOPRAZOLE 40 MG TABLET PO SCH (06:09)
[2018-03-19] MEDS: LEVOTHYROXINE 50 MCG TAB PO SCH (06:09)
[2018-03-19 07:30] LABS: Anisocytosis Moderate; Basophils % (A) 0 %; Eosinophils % (A) 0 %; HCT 27.1 % (34.0-46.0); HGB 7.9 gm/dL (11.4-16.0); Hypochromasia Marked; Lymphocytes # (A) 0.3 k/uL (1.0-4.8); Lymphocytes % (A) 9 %; MCH 24.2 pg (25.0-35.0); MCHC 29.2 g/dL (31.0-37.0); MCV 82.9 fL (80.0-100.0); Mean Platelet Volume 7.8; Microcytosis Slight; Monocytes # (A) 0.1 k/uL (0-1.0); Monocytes % (A) 3 %; Neutrophils % (A) 86 %; Platelet Count 236 k/uL (150-450); Poikilocytosis Marked; RBC 3.27 m/uL (3.80-5.40); WBC 3.6 k/uL (3.8-10.6)
[2018-03-19 07:31] LABS: ALT 24 U/L (9-52); AST 19 U/L (14-36); Alkaline Phosphatase 69 U/L (38-126); Anion Gap 8 mmol/L; Blood Urea Nitrogen 11 mg/dL (7-17); Calcium 8.5 mg/dL (8.4-10.2); Carbon Dioxide 28 mmol/L (22-30); Chloride 105 mmol/L (98-107); Glucose 138 mg/dL (74-99); Magnesium 1.6 mg/dL (1.6-2.3); Potassium 3.4 mmol/L (3.5-5.1); Sodium 141 mmol/L (137-145); Total Bilirubin 0.6 mg/dL (0.2-1.3); Total Protein 5.7 g/dL (6.3-8.2)
[2018-03-19] MEDS: IPRATROPIUM-ALBUTEROL 3 ML NEB INHALATION SCH ×4 (07:49→19:07)
[2018-03-19] MEDS: ASPIRIN 81 MG PO SCH (07:55)
[2018-03-19] MEDS: DISOPYRAMIDE 150 MG PO SCH ×2 (07:55→21:19)
[2018-03-19] MEDS: CITALOPRAM HYDROBROMIDE 20 MG TAB PO SCH (07:55)
[2018-03-19] MEDS: FERROUS SULFATE 325 MG TAB PO SCH (07:56)
[2018-03-19] MEDS: FUROSEMIDE 10 MG/ML 4 ML VIAL IV SCH ×2 (07:56→21:20)
[2018-03-19] MEDS ORDERED: POTASSIUM CHLORIDE ER 20 MEQ TAB.ER PO STA (08:03)
[2018-03-19] MEDS: MULTIVITAMINS, THERA 1 EACH TAB PO SCH (11:54)
--- NOTE | 2018-03-19 12:01 | P.HPIM ---
History of Present Illness H&P Date: 03/19/18 Chief Complaint: Acute respiratory distress due to pulmonary edema. This is a 77-year-old female one of Dr. Marino's patients, she has a past medical history of hypertension, hypertensive cardiovascular disease , mitral valve prolapse, supraventricular tachycardia, rheumatoid arthritis, GERD, COPD, and recurrent C. diff colitis. 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 diff at [facility] 3. The patient had a recent hospitalization in January which time she presented to the hospital with hemoglobin of 4.8. She was seen in consultation by GI and patient was to have follow-up in their office with plan for iron transfusions. Patient states she has follow-up with Dr. Ortiz and was told that no more return visits were necessary at this point as she had no diarrhea and no C. diff was evident. Patient states she has had trouble following up with her physicians because her daughter had a nervous breakdown recently. Patient states she has had shortness of breath and feeling sleepy all the time for the past 2 weeks. She denies any tarry or bloody stools, no diarrhea, no fever no chills, no abdominal pain, no cough. Patient presented with hemoglobin of 5.2 and repeat was 4.4. Patient did receive a total of 4 Packed red blood cells and iron infusion and was just discharged yesterday,went home and developed to have severe respiratory distress was placed on BIPAP and was transferred back to [facility] were she was found to have acute pulmonary edema and did receive 2 doses of lasix and was taken off her BIPAP and she was feeling better, however because of her presentation she was kept in the hospital for evaluation and treatment. Review of Systems Constitutional: Reports fatigue, Reports malaise, Reports weakness Eyes: denies blurred vision, denies bulging eye, denies decreased vision Cardiovascular: Reports decreased exercise tolerance, Reports dyspnea on exertion, Reports shortness of breath, Denies chest pain, Denies leg edema, Denies lightheadedness, Denies rapid heart beat, Denies syncope Respiratory: Reports congestion, Reports cough, Reports dyspnea, Reports wheezing, Denies sleep apnea, Denies snoring Gastrointestinal: Reports change in bowel habits, Reports nausea, Denies abdominal pain, Denies bloating, Denies BRBPR, Denies heartburn, Denies hematemesis, Denies hematochezia, Denies melena, Denies vomiting Genitourinary: Denies dysuria, Denies hematuria Musculoskeletal: Denies myalgias Musculoskeletal: absent: ankle pain, ankle stiffness, ankle swelling, elbow pain , elbow stiffness, elbow swelling, foot pain, foot stiffness, foot swelling, hand pain, hand stiffness, hand swelling, hip pain, hip stiffness, hip swelling , knee pain, knee stiffness, knee swelling, shoulder pain, shoulder stiffness, shoulder swelling, wrist pain, wrist stiffness, wrist swelling Integumentary: Denies pruritus, Denies rash Neurological: Denies numbness, Denies weakness Psychiatric: Reports anxiety, Reports depression, Reports mood swings, Denies sleep disturbances, Denies suicidal ideation Endocrine: Denies fatigue, Denies weight change Past Medical History Past Medical History: Atrial Fibrillation, Atrial Flutter, GERD/Reflux, Hyperlipidemia, Hypertension, Mitral Valve Prolapse (MVP), Rheumatoid Arthritis (RA), Thyroid Disorder Additional Past Medical History / Comment(s): OTHER HX: 03/06/14, 03/30/14, , 07/29/14 with CDIFF colitis, HYPOTHYROID, MVP, urinary incontinence, PROLAPSED MITRAL VALVE- NO PROBLEMS FOR 30 YRS. History of Any Multi-Drug Resistant Organisms: C-DIFF Date of last positivie culture/infection: 11/29/2017 per pt MDRO Source:: none Past Surgical History: Adenoidectomy, Cholecystectomy, Hysterectomy, Joint Replacement, Orthopedic Surgery, Tonsillectomy Additional Past Surgical History / Comment(s): 02/18/16 total R hip arthroplasty. Other surgical HX: BILATERAL KNEE REPLACEMENT (2003-RIGHT & 2005 - LEFT); LOWER LUMBAR LAMINECTOMYL4-L5 (2007); LEFT HIP REPLACEMENT (2012) ; RIGHT SHOULDER REPLACEMENT (2008), left total knee arthroplasty revision. Bilateral cataracts with lens implants. FECALCAL TRASPLANT TX FOR C-DIFF three times. Past Anesthesia/Blood Transfusion Reactions: No Reported Reaction Additional Past Anesthesia/Blood Transfusion Reaction / Comment(s): blood transfusion in past no reactions Past Psychological History: Anxiety, Depression Additional Psychological History / Comment(s): pt lives in own home w/ a nephew , SHE IS A . CARES FOR HERSELF BUT DOES HAVE A CLEANING LADY ONCE A MONTH. STILL DRIVES, has an electric scooter/w/c. Smoking Status: Current every day smoker Past Alcohol Use History: None Reported Additional Past Alcohol Use History / Comment(s): has smoked since 1954- 5 cig per day and stated she has no intention of quitting No alcohol use or abuse. No street drug use marijuana or medical marijuana use. Past Drug Use History: None Reported - Past Family History Mother Family Medical History: Cancer Additional Family Medical History / Comment(s): Mother at age 60 with history of emphysema and lung cancer. Father Family Medical History: CVA/TIA Additional Family Medical History / Comment(s): Father at age 74 with problems with his larynx. Sister(s) Family Medical History: Unable to Obtain Daughter(s) Family Medical History: COPD, Myocardial Infarction ([place]) Additional Family Medical History / Comment(s): Mother at age 60 yrs of emphysema/lung CA Son(s) Family Medical History: Myocardial Infarction ([place]) Additional Family Medical History / Comment(s): Father at age 74yrs with "CVA of his larynx" Medications and Allergies Home Medications Medication Instructions Recorded Confirmed Type Levothyroxine Sodium [Synthroid] 50 mcg PO QAM 03/03/14 03/18/18 History Aspirin 81 mg PO QAM 07/29/14 03/18/18 History Atenolol 100 mg PO HS 09/25/15 03/18/18 History ALPRAZolam [Xanax] 2 mg PO HS 07/17/16 03/18/18 History Disopyramide Phosphate [Norpace Cr] 150 mg PO BID 10/28/17 03/18/18 History Multivit-Min/Iron/Folic/Lutein 1 tab PO DAILY 10/28/17 03/18/18 History [Centrum Silver Women Tablet] Zolpidem [Ambien] 10 mg PO HS 10/28/17 03/18/18 History Ferrous Sulfate [Feosol] 325 mg PO DAILY #30 tab 01/17/18 03/18/18 Rx Albuterol Inhaler [Ventolin Hfa 2 puff INHALATION RT-QID PRN 03/15/18 03/18/18 History Inhaler] Citalopram Hydrobromide [CeleXA] 40 mg PO DAILY 03/15/18 03/18/18 History Esomeprazole Magnesium [NexIUM] 40 mg PO DAILY 03/15/18 03/18/18 History Latanoprost [Xalatan 0.005%] 1 drop BOTH EYES HS 03/15/18 03/18/18 History oxyCODONE-APAP 10-325MG [Percocet 1 tab PO Q6HR PRN 03/18/18 03/18/18 History 10-325 mg] Allergies Allergy/AdvReac Type Severity Reaction Status Date / Time adhesive tape Allergy Rash/Hives Verified 03/18/18 20:13 Influenza Virus Vaccines Allergy "MAKES HER Verified 03/18/18 20:13 FEEL SICK" Sulfa (Sulfonamide Allergy Rash/Hives Verified 03/18/18 20:13 Antibiotics) amoxicillin trihydrate AdvReac Diarrhea Verified 03/18/18 20:13 [From Augmentin] ciprofloxacin [From Cipro] AdvReac Unknown Verified 03/18/18 20:13 metronidazole [From Flagyl] AdvReac Unknown Verified 03/18/18 20:13 potassium clavulanate AdvReac Diarrhea Verified 03/18/18 20:13 [From Augmentin] quinidine AdvReac BLOOD CLOTS Verified 03/18/18 20:13 Physical Exam Vitals: Vital Signs Temp Pulse Pulse Resp BP BP BP 03/19/18 04:00 72 22 134/71 03/19/18 00:00 75 22 114/65 03/18/18 22:30 69 16 117/75 03/18/18 22:00 67 17 118/73 03/18/18 21:06 69 19 88/61 03/18/18 20:26 79 22 117/78 03/18/18 19:42 82 03/18/18 19:36 82 03/18/18 19:08 97.5 F L 105 H 29 H 165/100 Pulse Ox 03/19/18 04:00 96 03/19/18 00:00 98 03/18/18 22:30 99 03/18/18 22:00 97 03/18/18 21:06 97 03/18/18 20:26 97 03/18/18 19:42 03/18/18 19:36 03/18/18 19:08 94 L Intake and Output 03/18/18 03/19/18 03/19/18 22:59 06:59 14:59 Output Total 1400 Balance -1400 Output: Urine 1400 Other: # Voids 1 1 Weight 88.2 kg 88.2 kg - Constitutional General appearance: mild distress - EENT Eyes: anicteric sclerae, EOMI, PERRLA, no ptosis, no scleral icterus, normal appearance ENT: hearing grossly normal, NA/AT, normal oropharynx, no thrush Ears: bilateral: normal - Neck Neck: no lymphadenopathy, normal ROM, no rigidity, no stridor, no thyromegaly Carotids: bilateral: upstroke normal Thyroid: bilateral: normal size - Respiratory Respiratory: bilateral: diminished, rales, wheezing, prolonged expiration, negative: dullness, rhonchi - Cardiovascular Rhythm: regular Heart sounds: normal: S1, S2 Abnormal Heart Sounds: systolic murmur, S3 Gallop - Gastrointestinal General gastrointestinal: decreased bowel sounds, soft, no splenomegaly, no tenderness, no umbilical hernia, no ventral hernia - Neurologic Neurologic: CNII-XII intact - Musculoskeletal Musculoskeletal: generalized weakness, strength equal bilaterally - Psychiatric Psychiatric: A&O x's 3, appropriate affect, intact judgment & insight Results CBC & Chem 7: 03/19/18 06:15 03/19/18 06:15 Labs: Abnormal Lab Results - Last 24 Hours (Table) 03/18/18 03/18/18 03/18/18 Range/Units 19:20 19:20 19:28 WBC 12.1 H (3.8-10.6) k/uL RBC (3.80-5.40) m/uL Hgb 9.3 L (11.4-16.0) gm/dL Hct 32.2 L (34.0-46.0) % MCH 24.1 L (25.0-35.0) pg MCHC 28.8 L (31.0-37.0) g/dL RDW 19.4 H (11.5-15.5) % Neutrophils # 10.6 H (1.3-7.7) k/uL Lymphocytes # 0.8 L (1.0-4.8) k/uL Potassium (3.5-5.1) mmol/L Glucose 209 H (74-99) mg/dL POC Glucose (mg/dL) 228 H (75-99) mg/dL AST 42 H (14-36) U/L Total Protein (6.3-8.2) g/dL Albumin (3.5-5.0) g/dL 03/19/18 03/19/18 Range/Units 06:15 06:15 WBC 3.6 L (3.8-10.6) k/uL RBC 3.27 L (3.80-5.40) m/uL Hgb 7.9 L (11.4-16.0) gm/dL Hct 27.1 L (34.0-46.0) % MCH 24.2 L (25.0-35.0) pg MCHC 29.2 L (31.0-37.0) g/dL RDW 20.0 H (11.5-15.5) % Neutrophils # (1.3-7.7) k/uL Lymphocytes # 0.3 L (1.0-4.8) k/uL Potassium 3.4 L (3.5-5.1) mmol/L Glucose 138 H (74-99) mg/dL POC Glucose (mg/dL) (75-99) mg/dL AST (14-36) U/L Total Protein 5.7 L (6.3-8.2) g/dL Albumin 3.0 L (3.5-5.0) g/dL Thrombosis Risk Factor Assmnt - DVT/VTE Prophylaxis DVT/VTE Prophylaxis: Mechanical Prophylaxis ordered, Contraindicated - See note - Choose All That Apply Any of the Below Risk Factors Present?: Yes Each Factor Represents 1 point: Obesity (BMI >25), Swollen legs (current), Varicose veins Other Risk Factors: Yes Each Risk Factor Represents 3 Points: Age 75 years or older Other congenital or acquired thrombophilia - If yes, enter type in comment: No Thrombosis Risk Factor Assessment Total Risk Factor Score: 6 Thrombosis Risk Factor Assessment Level: High Risk Assessment and Plan Assessment: Assessment and plan: 1. Acute respiratory failure due to pulmonary edema and fluid overload . continue with lasix 40 mg IVP Q 12 hours and Nebulized treatment Duoneb 3 ml inhalation QID and O2 support ,we will continue with daily weight and monitor BMP and Magnesium. 2. Acute anemia with history of anemia of chronic disease. No signs of bleeding. S/P 4 units of PRBCs and Ferrlicit infusion. 3. History of C.Difficile colitis status post fecal transplant at [facility]. Monitor closely. Avoid antibiotics. 4. History of SVT. Stable, Norpace 150 mg twice a day. 5. Hypertension and hypertensive cardiovascular disease. Continue Norpace. 6. GERD. Continue Protonix 40 mg IV twice daily 7. Rheumatoid arthritis. Stable. 8. Hypothyroidism. Continue levothyroxine 50 MCG daily 9. Generalized anxiety disorder. Continue Xanax 2 mg every hs. 10. DVT prophylaxis. SCDs and TIMOTEO hose 11. GI prophylaxis. Protonix 40 mg daily. Patient will be admitted to the hospital for a minimum of 2 night stay. Discharge plan: Most likely return home
[2018-03-19] MEDS: oxyCODONE-APAP 10-325MG 1 EACH TAB PO PRN ×2 (12:51→21:19)
[2018-03-19] MEDS: ATENOLOL 50 MG TAB PO SCH (21:15)
[2018-03-19] MEDS: LATANOPROST 0.005% OPHTH DROPS 2.5 ML BTL BOTH EYES SCH (21:20)
[2018-03-19] MEDS: ALPRAZolam 1 MG TAB PO SCH (22:48)
[2018-03-19] MEDS: ZOLPIDEM 10 MG TAB PO SCH (22:48)
[2018-03-20] MEDS: oxyCODONE-APAP 10-325MG 1 EACH TAB PO PRN ×2 (05:49→21:32)
[2018-03-20] MEDS: PANTOPRAZOLE 40 MG TABLET PO SCH (05:49)
[2018-03-20] MEDS: LEVOTHYROXINE 50 MCG TAB PO SCH (05:49)
[2018-03-20 06:20] LABS: Anisocytosis Moderate; Basophils % (A) 0 %; Eosinophils # (A) 0.1 k/uL (0-0.7); Eosinophils % (A) 1 %; HCT 28.3 % (34.0-46.0); HGB 8.4 gm/dL (11.4-16.0); Hypochromasia Marked; Lymphocytes # (A) 1.2 k/uL (1.0-4.8); Lymphocytes % (A) 18 %; MCHC 29.7 g/dL (31.0-37.0); MCV 84.2 fL (80.0-100.0); Mean Platelet Volume 7.3; Microcytosis Slight; Monocytes # (A) 0.4 k/uL (0-1.0); Monocytes % (A) 6 %; Neutrophils # (A) 4.8 k/uL (1.3-7.7); Neutrophils % (A) 73 %; Platelet Count 279 k/uL (150-450); Poikilocytosis Marked; RBC 3.36 m/uL (3.80-5.40); RDW 21.4 % (11.5-15.5); WBC 6.5 k/uL (3.8-10.6)
[2018-03-20 06:30] LABS: ALT 16 U/L (9-52); AST 20 U/L (14-36); Albumin 3.1 g/dL (3.5-5.0); Alkaline Phosphatase 61 U/L (38-126); Anion Gap 8 mmol/L; Blood Urea Nitrogen 8 mg/dL (7-17); Calcium 8.3 mg/dL (8.4-10.2); Carbon Dioxide 29 mmol/L (22-30); Chloride 103 mmol/L (98-107); Glucose 78 mg/dL (74-99); Magnesium 1.4 mg/dL (1.6-2.3); Potassium 2.9 mmol/L (3.5-5.1); Sodium 140 mmol/L (137-145); Total Bilirubin 0.5 mg/dL (0.2-1.3); Total Protein 5.9 g/dL (6.3-8.2)
[2018-03-20] MEDS ORDERED: POTASSIUM CHLORIDE ER 20 MEQ TAB.ER PO STA (07:32)
[2018-03-20] MEDS: IPRATROPIUM-ALBUTEROL 3 ML NEB INHALATION SCH ×4 (07:51→19:22)
[2018-03-20] MEDS: MULTIVITAMINS, THERA 1 EACH TAB PO SCH (08:20)
[2018-03-20] MEDS: MAGNESIUM SULFATE-D5W PMX 1 GM in DEXTROSE/WATER 1 100ML.BAG IVPB SCH ×2 (08:20→09:27)
[2018-03-20] MEDS: FERROUS SULFATE 325 MG TAB PO SCH (08:20)
[2018-03-20] MEDS: CITALOPRAM HYDROBROMIDE 20 MG TAB PO SCH (08:20)
[2018-03-20] MEDS: ASPIRIN 81 MG PO SCH (08:20)
[2018-03-20] MEDS: DISOPYRAMIDE 150 MG PO SCH ×2 (08:22→21:33)
[2018-03-20] MEDS ORDERED: POTASSIUM CHLORIDE ER 20 MEQ TAB.ER PO ONE (12:00)
[2018-03-20] MEDS: ATENOLOL 50 MG TAB PO SCH (21:28)
[2018-03-20] MEDS: ALPRAZolam 1 MG TAB PO SCH (21:33)
[2018-03-20] MEDS: LATANOPROST 0.005% OPHTH DROPS 2.5 ML BTL BOTH EYES SCH (21:33)
--- NOTE | 2018-03-20 22:30 | P.PN ---
Subjective Progress Note Date: 03/20/18 This is a 77-year-old female one of Dr. Marino's patients, she has a past medical history of hypertension, hypertensive cardiovascular disease , mitral valve prolapse, supraventricular tachycardia, rheumatoid arthritis, GERD, COPD, and recurrent C. diff colitis. 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 diff at [facility] 3. The patient had a recent hospitalization in January which time she presented to the hospital with hemoglobin of 4.8. She was seen in consultation by GI and patient was to have follow-up in their office with plan for iron transfusions. Patient states she has follow-up with Dr. Ortiz and was told that no more return visits were necessary at this point as she had no diarrhea and no C. diff was evident. Patient states she has had trouble following up with her physicians because her daughter had a nervous breakdown recently. Patient states she has had shortness of breath and feeling sleepy all the time for the past 2 weeks. She denies any tarry or bloody stools, no diarrhea, no fever no chills, no abdominal pain, no cough. Patient presented with hemoglobin of 5.2 and repeat was 4.4. Patient did receive a total of 4 Packed red blood cells and iron infusion and was just discharged yesterday,went home and developed to have severe respiratory distress was placed on BIPAP and was transferred back to [facility] were she was found to have acute pulmonary edema and did receive 2 doses of lasix and was taken off her BIPAP and she was feeling better, however because of her presentation she was kept in the hospital for evaluation and treatment. 03/20:Patient is doing much better we will replace her potassium and magnesium and she will be discharged home in AM. Objective - Vital Signs Vital signs: Vital Signs Temp 98 F 03/19/18 16:00 Pulse 67 03/20/18 04:00 Resp 17 03/20/18 04:00 BP 110/57 03/20/18 04:00 Pulse Ox 95 03/20/18 04:00 Intake & Output 03/19/18 03/20/18 03/20/18 18:59 06:59 18:59 Intake Total 942 Output Total 1700 3500 Balance -758 -3500 Intake: Oral 942 Output: Urine 1700 3500 - Exam - Constitutional General appearance: mild distress - EENT Eyes: anicteric sclerae, EOMI, PERRLA, no ptosis, no scleral icterus, normal appearance ENT: hearing grossly normal, NA/AT, normal oropharynx, no thrush Ears: bilateral: normal - Neck Neck: no lymphadenopathy, normal ROM, no rigidity, no stridor, no thyromegaly Carotids: bilateral: upstroke normal Thyroid: bilateral: normal size - Respiratory Respiratory: bilateral: diminished, rales, wheezing, prolonged expiration, negative: dullness, rhonchi - Cardiovascular Rhythm: regular Heart sounds: normal: S1, S2 Abnormal Heart Sounds: systolic murmur, S3 Gallop - Gastrointestinal General gastrointestinal: decreased bowel sounds, soft, no splenomegaly, no tenderness, no umbilical hernia, no ventral hernia - Neurologic Neurologic: CNII-XII intact - Musculoskeletal Musculoskeletal: generalized weakness, strength equal bilaterally - Psychiatric Psychiatric: A&O x's 3, appropriate affect, intact judgment & insight - Labs CBC & Chem 7: 03/20/18 05:38 03/20/18 05:38 Labs: Abnormal Lab Results - Last 24 Hours (Table) 03/19/18 03/19/18 03/20/18 Range/Units 06:15 06:15 05:38 WBC 3.6 L (3.8-10.6) k/uL RBC 3.27 L 3.36 L (3.80-5.40) m/uL Hgb 7.9 L 8.4 L (11.4-16.0) gm/dL Hct 27.1 L 28.3 L (34.0-46.0) % MCH 24.2 L (25.0-35.0) pg MCHC 29.2 L 29.7 L (31.0-37.0) g/dL RDW 20.0 H 21.4 H (11.5-15.5) % Lymphocytes # 0.3 L (1.0-4.8) k/uL Potassium 3.4 L (3.5-5.1) mmol/L Glucose 138 H (74-99) mg/dL Calcium (8.4-10.2) mg/dL Magnesium (1.6-2.3) mg/dL Total Protein 5.7 L (6.3-8.2) g/dL Albumin 3.0 L (3.5-5.0) g/dL 03/20/18 Range/Units 05:38 WBC (3.8-10.6) k/uL RBC (3.80-5.40) m/uL Hgb (11.4-16.0) gm/dL Hct (34.0-46.0) % MCH (25.0-35.0) pg MCHC (31.0-37.0) g/dL RDW (11.5-15.5) % Lymphocytes # (1.0-4.8) k/uL Potassium 2.9 L (3.5-5.1) mmol/L Glucose (74-99) mg/dL Calcium 8.3 L (8.4-10.2) mg/dL Magnesium 1.4 L (1.6-2.3) mg/dL Total Protein 5.9 L (6.3-8.2) g/dL Albumin 3.1 L (3.5-5.0) g/dL Assessment and Plan Assessment: Assessment and plan: 1. Acute respiratory failure due to pulmonary edema and fluid overload . continue with lasix 40 mg IVP Q 12 hours and Nebulized treatment Duoneb 3 ml inhalation QID and O2 support ,we will continue with daily weight and monitor BMP and Magnesium. 2. Acute anemia with history of anemia of chronic disease. No signs of bleeding. S/P 4 units of PRBCs and Ferrlicit infusion. 3. History of C.Difficile colitis status post fecal transplant at [facility]. Monitor closely. Avoid antibiotics. 4. History of SVT. Stable, Norpace 150 mg twice a day. 5. Hypertension and hypertensive cardiovascular disease. Continue Norpace. 6. GERD. Continue Protonix 40 mg IV twice daily 7. Rheumatoid arthritis. Stable. 8. Hypothyroidism. Continue levothyroxine 50 MCG daily 9. Generalized anxiety disorder. Continue Xanax 2 mg every hs. 10. DVT prophylaxis. SCDs and TIMOTEO hose 11. GI prophylaxis. Protonix 40 mg daily. 12. Home tomorrow morning
[2018-03-20] MEDS: ZOLPIDEM 10 MG TAB PO SCH (23:03)
[2018-03-21] MEDS: oxyCODONE-APAP 10-325MG 1 EACH TAB PO PRN (03:27)
[2018-03-21] MEDS: PANTOPRAZOLE 40 MG TABLET PO SCH (06:28)
[2018-03-21] MEDS: LEVOTHYROXINE 50 MCG TAB PO SCH (06:28)
[2018-03-21 07:15] LABS: Anisocytosis Moderate; Basophils % (A) 0 %; Eosinophils # (A) 0.1 k/uL (0-0.7); Eosinophils % (A) 4 %; HCT 29.6 % (34.0-46.0); HGB 8.6 gm/dL (11.4-16.0); Hypochromasia Marked; Lymphocytes # (A) 1.1 k/uL (1.0-4.8); Lymphocytes % (A) 28 %; MCH 24.7 pg (25.0-35.0); MCV 85.1 fL (80.0-100.0); Mean Platelet Volume 6.8; Microcytosis Slight; Monocytes # (A) 0.3 k/uL (0-1.0); Monocytes % (A) 9 %; Neutrophils # (A) 2.3 k/uL (1.3-7.7); Neutrophils % (A) 58 %; Platelet Count 270 k/uL (150-450); Poikilocytosis Marked; RBC 3.48 m/uL (3.80-5.40); RDW 20.7 % (11.5-15.5)
[2018-03-21 07:41] LABS: Anion Gap 6 mmol/L; Blood Urea Nitrogen 6 mg/dL (7-17); Calcium 8.5 mg/dL (8.4-10.2); Carbon Dioxide 29 mmol/L (22-30); Chloride 103 mmol/L (98-107); Glucose 79 mg/dL (74-99); Magnesium 1.8 mg/dL (1.6-2.3); Potassium 3.7 mmol/L (3.5-5.1); Sodium 138 mmol/L (137-145)
[2018-03-21] MEDS: IPRATROPIUM-ALBUTEROL 3 ML NEB INHALATION SCH ×3 (07:45→15:23)
[2018-03-21] MEDS: DISOPYRAMIDE 150 MG PO SCH (07:47)
[2018-03-21] MEDS: CITALOPRAM HYDROBROMIDE 20 MG TAB PO SCH (07:47)
[2018-03-21] MEDS: ASPIRIN 81 MG PO SCH (07:47)
[2018-03-21] MEDS: FERROUS SULFATE 325 MG TAB PO SCH (07:47)
[2018-03-21 07:48] VITALS: RESP 18
[2018-03-21] MEDS: MULTIVITAMINS, THERA 1 EACH TAB PO SCH (07:48)
[2018-03-21] MEDS: BENZONATATE 100 MG CAP PO SCH ×2 (11:27→15:45)
[2018-03-21 11:46] VITALS: BP 126/67; PULSE 70; TEMP 97.8
--- NOTE | 2018-03-21 15:08 | P.DS ---
Providers Date of admission: 03/20/18 06:56 Expected date of discharge: 03/21/18 Attending physician: Shirley Weinberg Primary care physician: [facility]: This is a 77-year-old female one of Dr. Marino's patients, she has a past medical history of hypertension, hypertensive cardiovascular disease , mitral valve prolapse, supraventricular tachycardia, rheumatoid arthritis, GERD, COPD, and recurrent C. diff colitis. 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 diff at [facility] 3. The patient had a recent hospitalization in January which time she presented to the hospital with hemoglobin of 4.8. She was seen in consultation by GI and patient was to have follow-up in their office with plan for iron transfusions. Patient states she has follow-up with Dr. Ortiz and was told that no more return visits were necessary at this point as she had no diarrhea and no C. diff was evident. Patient states she has had trouble following up with her physicians because her daughter had a nervous breakdown recently. Patient states she has had shortness of breath and feeling sleepy all the time for the past 2 weeks. She denies any tarry or bloody stools, no diarrhea, no fever no chills, no abdominal pain, no cough. Patient presented with hemoglobin of 5.2 and repeat was 4.4. Patient did receive a total of 4 Packed red blood cells and iron infusion and was just discharged yesterday,went home and developed to have severe respiratory distress was placed on BIPAP and was transferred back to [facility] were she was found to have acute pulmonary edema and did receive 2 doses of lasix and was taken off her BIPAP and she was feeling better, however because of her presentation she was kept in the hospital for evaluation and treatment. 03/20:Patient is doing much better we will replace her potassium and magnesium and she will be discharged home in AM. 03/21: Patient is doing much better today. Potassium and magnesium are normal. She has no lower extremity edema. Patient instructed to take her Lasix at home just on Wednesday and Wednesday when needed. Nebulizer will be ordered for home. Discharge diagnoses: 1. Acute respiratory failure due to pulmonary edema and fluid overload 2. Acute anemia with history of anemia of chronic disease. 3. History of C.Difficile colitis status post fecal transplant at [facility]. 4. History of SVT. 5. Hypertension and hypertensive cardiovascular disease. 6. GERD. 7. Rheumatoid arthritis. 8. Hypothyroidism. 9. Generalized anxiety disorder. Discharge plan: Home Impression and plan of care have been directed as dictated by the signing physician. Domenica Reed nurse practitioner acting as scribe for signing physician. Patient Condition at Discharge: Good Plan - Discharge Summary Discharge Rx Participant: No New Discharge Prescriptions: New Benzonatate [Tessalon Perles] 100 mg PO TID PRN #30 capsule PRN Reason: Cough Ipratropium-Albuterol Nebulize [Duoneb 0.5 mg-3 mg/3 ml Soln] 3 ml INHALATION RT-QID #120 ampul.neb Continue Levothyroxine Sodium [Synthroid] 50 mcg PO QAM Aspirin 81 mg PO QAM Atenolol 100 mg PO HS ALPRAZolam [Xanax] 2 mg PO HS Zolpidem [Ambien] 10 mg PO HS Multivit-Min/Iron/Folic/Lutein [Centrum Silver Women Tablet] 1 tab PO DAILY Disopyramide Phosphate [Norpace Cr] 150 mg PO BID Ferrous Sulfate [Feosol] 325 mg PO DAILY #30 tab Esomeprazole Magnesium [NexIUM] 40 mg PO DAILY Citalopram Hydrobromide [CeleXA] 40 mg PO DAILY Latanoprost [Xalatan 0.005%] 1 drop BOTH EYES HS Albuterol Inhaler [Ventolin Hfa Inhaler] 2 puff INHALATION RT-QID PRN PRN Reason: Shortness Of Breath oxyCODONE-APAP 10-325MG [Percocet 10-325 mg] 1 tab PO Q6HR PRN PRN Reason: Pain Control Discharge Medication List Levothyroxine Sodium [Synthroid] 50 mcg PO QAM 03/03/14 [History] Aspirin 81 mg PO QAM 07/29/14 [History] Atenolol 100 mg PO HS 09/25/15 [History] ALPRAZolam [Xanax] 2 mg PO HS 07/17/16 [History] Disopyramide Phosphate [Norpace Cr] 150 mg PO BID 10/28/17 [History] Multivit-Min/Iron/Folic/Lutein [Centrum Silver Women Tablet] 1 tab PO DAILY [History] Zolpidem [Ambien] 10 mg PO HS 10/28/17 [History] Ferrous Sulfate [Feosol] 325 mg PO DAILY #30 tab 01/17/18 [Rx] Albuterol Inhaler [Ventolin Hfa Inhaler] 2 puff INHALATION RT-QID PRN 03/15/18 [ History] Citalopram Hydrobromide [CeleXA] 40 mg PO DAILY 03/15/18 [History] Esomeprazole Magnesium [NexIUM] 40 mg PO DAILY 03/15/18 [History] Latanoprost [Xalatan 0.005%] 1 drop BOTH EYES HS 03/15/18 [History] oxyCODONE-APAP 10-325MG [Percocet 10-325 mg] 1 tab PO Q6HR PRN 03/18/18 [History ] Benzonatate [Tessalon Perles] 100 mg PO TID PRN #30 capsule 03/21/18 [Rx] Ipratropium-Albuterol Nebulize [Duoneb 0.5 mg-3 mg/3 ml Soln] 3 ml INHALATION RT -QID #120 ampul.neb 03/21/18 [Rx] Follow up Appointment(s)/Referral(s): [facility], [NON-STAFF] - As Needed Franklyn Marino DO [Primary Care Provider] - 03/28/18 3:00 pm (Wednesday -previously scheduled appointment)
--- NOTE | 2018-03-23 10:34 | CDI ---
Documentation Clarification Form Date: 03/23/2018 10:21:02 AM From: ELSI Wetzel; Antonia Zapata [employer] Phone: If you have a question about this query, please contact Antonia Zapata [employer] at [phone] between 8am and 5pm. Admit Date: 03/20/2018 6:56:00 AM Patient Name: Janey Trejo Visit Number: [id number] Discharge Date: 03/21/2018 3:46:00 PM ATTENTION: The Clinical Documentation Specialists (CDI) and [facility] Coding Staff appreciate your assistance in clarifying documentation. Please respond to the clarification below the line at the bottom and electronically sign. The CDI & [facility] Coding staff will review the response and follow-up if needed. Please note: Queries are made part of the Legal Health Record. If you have any questions, please contact the author of this message via ITS. Dr. Shirley Weinberg Acute respiratory failure due to pulmonary edema and fluid overload is documented in the record. The patient received blood transfusion prior to admission, and returned to the ED with respiratory distress and fluid overload. She was given IV Lasix and placed on BIPAP. History/Risk Factors: Anemia of chronic disease, hypertensive cardiovascular disease, hypothyroidism. Clinical Indicators: Pulmonary edema, fluid overload. Treatment: IV Lasix In your professional opinion, please further clarify the presenting fluid overload and pulmonary edema, Transfusion Associated Circulatory Overload (TACO) Other underlying cause, please specify Unable to determine Transfusion associated circulatory overload. SUSAND
== END 2018-03-21 15:46 | disposition home health service (06) | DRG 640 ==
LOC: EC 19:05 → 3SCARD 22:06 → OBSVTOIN 03-20 06:56
PROVIDERS: ADMIT Internal Medicine; ATTEND Internal Medicine
DX: E87.71 Transfusion associated circulatory overload (principal); J96.00 Acute respiratory failure, unspecified whether with hypoxia or hypercapnia; J81.0 Acute pulmonary edema; E87.70 Fluid overload, unspecified; D63.8 Anemia in other chronic diseases classified elsewhere; E03.9 Hypothyroidism, unspecified; E78.5 Hyperlipidemia, unspecified; F17.200 Nicotine dependence, unspecified, uncomplicated; F32.9 Major depressive disorder, single episode, unspecified; F41.1 Generalized anxiety disorder; I11.9 Hypertensive heart disease without heart failure; I34.1 Nonrheumatic mitral (valve) prolapse; I48.91 Unspecified atrial fibrillation; J44.9 Chronic obstructive pulmonary disease, unspecified; K21.9 Gastro-esophageal reflux disease without esophagitis; M06.9 Rheumatoid arthritis, unspecified; Z79.890 Hormone replacement therapy; Z79.899 Other long term (current) drug therapy; Z80.1 Family history of malignant neoplasm of trachea, bronchus and lung; Z82.3 Family history of stroke; Z82.49 Family history of ischemic heart disease and other diseases of the circulatory system; Z82.5 Family history of asthma and other chronic lower respiratory diseases; Z86.19 Personal history of other infectious and parasitic diseases; Z90.710 Acquired absence of both cervix and uterus; Z98.42 Cataract extraction status, left eye; Z98.41 Cataract extraction status, right eye; Z96.1 Presence of intraocular lens; Z96.611 Presence of right artificial shoulder joint; Z96.643 Presence of artificial hip joint, bilateral; Z96.653 Presence of artificial knee joint, bilateral; Z94.89 Other transplanted organ and tissue status; Z88.1 Allergy status to other antibiotic agents; Z88.7 Allergy status to serum and vaccine; Z88.2 Allergy status to sulfonamides; Z88.8 Allergy status to other drugs, medicaments and biological substances
CPT/HCPCS: 36415; 71045; 80048; 80053; 82550; 82553; 83735; 83880; 84132; 84484; 85025; 85610; 85730; 93005; 94640; 94660; 94760; 96374; 96375; 99291

== ENCOUNTER 2018-03-23 22:11 | Inpatient (IN) | payer MEDICARE ==
[2018-03-23] MEDS ORDERED: FUROSEMIDE 10 MG/ML 4 ML VIAL IV STA (22:18)
[2018-03-23] MEDS ORDERED: LORazepam 2 MG/ML INJ IV STA (22:18)
[2018-03-23 22:53] LABS: Anisocytosis Moderate; Basophils % (A) 0 %; Eosinophils # (A) 0.1 k/uL (0-0.7); Eosinophils % (A) 1 %; HCT 37.8 % (34.0-46.0); HGB 10.8 gm/dL (11.4-16.0); Hypochromasia Marked; Lymphocytes # (A) 0.8 k/uL (1.0-4.8); Lymphocytes % (A) 9 %; MCH 24.2 pg (25.0-35.0); MCHC 28.7 g/dL (31.0-37.0); MCV 84.5 fL (80.0-100.0); Mean Platelet Volume 7.1; Microcytosis Slight; Monocytes # (A) 0.4 k/uL (0-1.0); Monocytes % (A) 5 %; Neutrophils # (A) 7.4 k/uL (1.3-7.7); Neutrophils % (A) 85 %; Platelet Count 380 k/uL (150-450); Poikilocytosis Moderate; RBC 4.48 m/uL (3.80-5.40); RDW 20.3 % (11.5-15.5); WBC 8.8 k/uL (3.8-10.6)
[2018-03-23 23:07] LABS: Prothrombin Time 10.9 sec (9.0-12.0)
[2018-03-23 23:12] LABS: ALT 18 U/L (9-52); AST 32 U/L (14-36); Alkaline Phosphatase 90 U/L (38-126); Anion Gap 10 mmol/L; Blood Urea Nitrogen 12 mg/dL (7-17); Carbon Dioxide 25 mmol/L (22-30); Chloride 104 mmol/L (98-107); Glucose 203 mg/dL (74-99); Sodium 139 mmol/L (137-145); Total Bilirubin 0.5 mg/dL (0.2-1.3); Total Protein 7.2 g/dL (6.3-8.2)
[2018-03-23 23:14] LABS: Creatine Kinase 34 U/L (30-135)
[2018-03-23 23:26] LABS: Creatine Kinase MB 0.7 ng/mL (0.0-2.4); Troponin I <0.012 ng/mL (0.000-0.034)
--- NOTE | 2018-03-23 23:26 | XR ---
EXAMINATION TYPE: XR chest 1V portable DATE OF EXAM: 03/23/2018 COMPARISON: 03/18/2018 HISTORY: Dyspnea TECHNIQUE: Single frontal view of the chest is obtained. FINDINGS: Heart is enlarged. There is coarsening of the lung markings. There is no heart failure. I see no pleural effusion. IMPRESSION: Cardiomegaly and pulmonary fibrosis. No gross heart failure. No change compared to old e xam.
--- NOTE | 2018-03-23 23:56 | ED ---
General Adult HPI - General Chief complaint: Shortness of Breath Stated complaint: MERVIN Time Seen by Provider: 03/23/18 22:16 Source: patient, EMS Mode of arrival: EMS Limitations: no limitations - History of Present Illness Initial comments: Tiana Hernandez is a 77-year-old female with extensive past medical history who presents the emergency department today via EMS in respiratory distress. Patient reports she was recently admitted for difficulty breathing due to fluid overload after a transfusion of 4 units of packed red blood cells. Patient reports she improved mildly during her admission but since returning home has again felt short of breath. Patient reports that this evening she began having significant worsening of her shortness of breath so she called 911. EMS reports they found the patient in moderate respiratory distress, she was wheezing, tachypneic, one-word dyspnea, noted to have oxygen saturations of only the low 70s on room air. Patient was placed on CPAP during transport to the hospital. - Related Data Home Medications Medication Instructions Recorded Confirmed RX: Levothyroxine Sodium 50 mcg PO QAM 03/03/14 03/23/18 [Synthroid] RX: Aspirin 81 mg PO QAM 07/29/14 03/23/18 RX: Atenolol 100 mg PO HS 09/25/15 03/23/18 RX: ALPRAZolam [Xanax] 2 mg PO HS 07/17/16 03/23/18 RX: Disopyramide Phosphate 150 mg PO BID 10/28/17 03/23/18 [Norpace Cr] RX: Multivit-Min/Iron/Folic/Lutein 1 tab PO DAILY 10/28/17 03/23/18 [Centrum Silver Women Tablet] RX: Zolpidem [Ambien] 10 mg PO HS 10/28/17 03/23/18 RX: Albuterol Inhaler [Ventolin 2 puff INHALATION RT-QID PRN 03/15/18 03/23/18 Hfa Inhaler] RX: Citalopram Hydrobromide 40 mg PO DAILY 03/15/18 03/23/18 [CeleXA] RX: Esomeprazole Magnesium [NexIUM] 40 mg PO DAILY 03/15/18 03/23/18 RX: Latanoprost [Xalatan 0.005%] 1 drop BOTH EYES HS 03/15/18 03/23/18 RX: oxyCODONE-APAP 10-325MG 1 tab PO Q6HR PRN 03/18/18 03/23/18 [Percocet 10-325 mg] Ipratropium-Albuterol Nebulize 3 ml INHALATION RT-QID 03/23/18 03/23/18 [Duoneb 0.5 mg-3 mg/3 ml Soln] Previous Rx's Medication Instructions Recorded RX: Ferrous Sulfate [Feosol] 325 mg PO DAILY #30 tab 01/17/18 Benzonatate [Tessalon Perles] 100 mg PO TID PRN #30 capsule 03/21/18 Allergies Allergy/AdvReac Type Severity Reaction Status Date / Time adhesive tape Allergy Rash/Hives Verified 03/18/18 20:13 Influenza Virus Vaccines Allergy "MAKES HER Verified 03/18/18 20:13 FEEL SICK" Sulfa (Sulfonamide Allergy Rash/Hives Verified 03/18/18 20:13 Antibiotics) amoxicillin trihydrate AdvReac Diarrhea Verified 03/18/18 20:13 [From Augmentin] ciprofloxacin [From Cipro] AdvReac Unknown Verified 03/18/18 20:13 metronidazole [From Flagyl] AdvReac Unknown Verified 03/18/18 20:13 potassium clavulanate AdvReac Diarrhea Verified 03/18/18 20:13 [From Augmentin] quinidine AdvReac BLOOD CLOTS Verified 03/18/18 20:13 Review of Systems ROS Statement: Those systems with pertinent positive or pertinent negative responses have been documented in the HPI. ROS Other: All systems not noted in ROS Statement are negative. Limitations: ROS unobtainable due to patients medical condition (respiratory distress) Past Medical History Past Medical History: Atrial Fibrillation, Atrial Flutter, GERD/Reflux, Hyperlipidemia, Hypertension, Mitral Valve Prolapse (MVP), Rheumatoid Arthritis (RA), Thyroid Disorder Additional Past Medical History / Comment(s): OTHER HX: 03/06/14, 03/30/14, , 07/29/14 with CDIFF colitis, HYPOTHYROID, MVP, urinary incontinence, PROLAPSED MITRAL VALVE- NO PROBLEMS FOR 30 YRS. History of Any Multi-Drug Resistant Organisms: C-DIFF Date of last positivie culture/infection: 11/29/2017 per pt MDRO Source:: none Past Surgical History: Adenoidectomy, Cholecystectomy, Hysterectomy, Joint Replacement, Orthopedic Surgery, Tonsillectomy Additional Past Surgical History / Comment(s): 02/18/16 total R hip arthroplasty. Other surgical HX: BILATERAL KNEE REPLACEMENT (2003-RIGHT & 2005 - LEFT); LOWER LUMBAR LAMINECTOMYL4-L5 (2007); LEFT HIP REPLACEMENT (2012) ; RIGHT SHOULDER REPLACEMENT (2008), left total knee arthroplasty revision. Bilateral cataracts with lens implants. FECALCAL TRASPLANT TX FOR C-DIFF three times. Past Anesthesia/Blood Transfusion Reactions: No Reported Reaction Additional Past Anesthesia/Blood Transfusion Reaction / Comment(s): blood transfusion in past no reactions Past Psychological History: Anxiety, Depression Smoking Status: Current every day smoker Past Alcohol Use History: None Reported Past Drug Use History: None Reported - Past Family History Mother Family Medical History: Cancer Additional Family Medical History / Comment(s): Mother at age 60 with history of emphysema and lung cancer. Father Family Medical History: CVA/TIA Additional Family Medical History / Comment(s): Father at age 74 with problems with his larynx. Sister(s) Family Medical History: Unable to Obtain Daughter(s) Family Medical History: COPD, Myocardial Infarction ([place]) Additional Family Medical History / Comment(s): Mother at age 60 yrs of emphysema/lung CA Son(s) Family Medical History: Myocardial Infarction ([place]) Additional Family Medical History / Comment(s): Father at age 74yrs with "CVA of his larynx" General Exam - General Exam Comments Initial Comments: Physical Exam GENERAL: Chronically ill-appearing in acute respiratory distress HENT: Normocephalic, Atraumatic. EYES: PERRL, EOMI No conjunctival pallor PULMONARY: Tachypnea, course breath sounds CARDIOVASCULAR: There is a regular rate and rhythm without any murmurs gallops or rubs. ABDOMEN: Soft and nontender with normal bowel sounds. SKIN: Skin is clear with no lesions or rashes and otherwise unremarkable. : Deferred NEUROLOGIC: Patient is alert and oriented x3. Moving all extremities spontaneously MUSCULOSKELETAL: Normal extremities with adequate strength and full range of motion. No lower extremity swelling or edema. No calf tenderness. PSYCHIATRIC: Normal psychiatric evaluation. Limitations: no limitations Limitations: no limitations Course Vital Signs 03/23/18 03/23/18 03/23/18 22:13 22:19 22:30 Temperature Pulse Rate 62 Respiratory 28 H Rate Blood Pressure 143/95 143/95 143/95 O2 Sat by Pulse 99 99 98 Oximetry 03/23/18 03/23/18 03/24/18 23:00 23:30 01:00 Temperature Pulse Rate 51 L 50 L 49 L Respiratory 19 Rate Blood Pressure 139/89 115/90 126/69 O2 Sat by Pulse Oximetry 03/24/18 03:26 Temperature 97.9 F Pulse Rate 57 L Respiratory 18 Rate Blood Pressure 124/76 O2 Sat by Pulse 100 Oximetry EKG Findings - EKG Comments: EKG Findings:: EKG obtained at 10:41 PM, rate is 54, rhythm is sinus bradycardia with first degree AV block and a prolonged QT. VT is 214, QRS is 84 , QTC is 513. Medical Decision Making - Medical Decision Making Patient was seen and evaluated immediately upon arrival to the emergency department, patient was noted to be in moderate respiratory distress Patient received solumedrol, and duoneb x2 en route to the hospital Patient was transitioned from EMS CPAP to hospital BiPAP Labs and imaging were ordered Labs are reviewed, anemia resolved - hemoglobin 10 Chest x-ray with no acute findings Patient's with her breathing improved significantly with BiPAP At this time will plan to admit patient for respiratory distress Patient tolerated BiPAP for approximately 3hrs, was weaned to NC She care was discussed with Dr. Weinberg who requests a CT angiogram of the chest to evaluate for cause of the patient's hypoxia as her chest x-ray does not reveal any large pleural effusions or cause for hypoxia Computed tomography scan reveals no acute pulmonary embolism, there is moderate bilateral pleural effusions which is likely causing patient's hypoxia. - Lab Data Result diagrams: 03/23/18 22:40 03/23/18 22:40 Lab Results 03/23/18 03/23/18 03/23/18 Range/Units 22:40 22:40 22:40 WBC 8.8 (3.8-10.6) k/uL RBC 4.48 (3.80-5.40) m/uL Hgb 10.8 L (11.4-16.0) gm/dL Hct 37.8 (34.0-46.0) % MCV 84.5 (80.0-100.0) fL MCH 24.2 L (25.0-35.0) pg MCHC 28.7 L (31.0-37.0) g/dL RDW 20.3 H (11.5-15.5) % Plt Count 380 (150-450) k/uL Neutrophils % 85 % Lymphocytes % 9 % Monocytes % 5 % Eosinophils % 1 % Basophils % 0 % Neutrophils # 7.4 (1.3-7.7) k/uL Lymphocytes # 0.8 L (1.0-4.8) k/uL Monocytes # 0.4 (0-1.0) k/uL Eosinophils # 0.1 (0-0.7) k/uL Basophils # 0.0 (0-0.2) k/uL Hypochromasia Marked Poikilocytosis Moderate Anisocytosis Moderate Microcytosis Slight PT (9.0-12.0) sec INR (<1.2) APTT (22.0-30.0) sec Sodium (137-145) mmol/L Potassium (3.5-5.1) mmol/L Chloride (98-107) mmol/L Carbon Dioxide (22-30) mmol/L Anion Gap mmol/L BUN (7-17) mg/dL Creatinine (0.52-1.04) mg/dL Est GFR (CKD-EPI)AfAm (>60 ml/min/1.73 sqM) Est GFR (CKD-EPI)NonAf (>60 ml/min/1.73 sqM) Glucose (74-99) mg/dL Calcium (8.4-10.2) mg/dL Total Bilirubin (0.2-1.3) mg/dL AST (14-36) U/L ALT (9-52) U/L Alkaline Phosphatase (38-126) U/L Total Creatine Kinase 34 (30-135) U/L CK-MB (CK-2) 0.7 (0.0-2.4) ng/mL CK-MB (CK-2) Rel Index 2.1 Troponin I <0.012 (0.000-0.034) ng/mL Total Protein (6.3-8.2) g/dL Albumin (3.5-5.0) g/dL Blood Type A Positive Blood Type Recheck No Antibody Screen POSITIVE Antibody Identification Anti-Little c Direct Antiglob Test Negative Spec Expiration Date 03/26/2018233903/23/18 03/23/18 Range/Units 22:40 22:40 WBC (3.8-10.6) k/uL RBC (3.80-5.40) m/uL Hgb (11.4-16.0) gm/dL Hct (34.0-46.0) % MCV (80.0-100.0) fL MCH (25.0-35.0) pg MCHC (31.0-37.0) g/dL RDW (11.5-15.5) % Plt Count (150-450) k/uL Neutrophils % % Lymphocytes % % Monocytes % % Eosinophils % % Basophils % % Neutrophils # (1.3-7.7) k/uL Lymphocytes # (1.0-4.8) k/uL Monocytes # (0-1.0) k/uL Eosinophils # (0-0.7) k/uL Basophils # (0-0.2) k/uL Hypochromasia Poikilocytosis Anisocytosis Microcytosis PT 10.9 (9.0-12.0) sec INR 1.0 (<1.2) APTT 22.0 (22.0-30.0) sec Sodium 139 (137-145) mmol/L Potassium 4.0 (3.5-5.1) mmol/L Chloride 104 (98-107) mmol/L Carbon Dioxide 25 (22-30) mmol/L Anion Gap 10 mmol/L BUN 12 (7-17) mg/dL Creatinine 0.62 (0.52-1.04) mg/dL Est GFR (CKD-EPI)AfAm >90 (>60 ml/min/1.73 sqM) Est GFR (CKD-EPI)NonAf 88 (>60 ml/min/1.73 sqM) Glucose 203 H (74-99) mg/dL Calcium 9.0 (8.4-10.2) mg/dL Total Bilirubin 0.5 (0.2-1.3) mg/dL AST 32 (14-36) U/L ALT 18 (9-52) U/L Alkaline Phosphatase 90 (38-126) U/L Total Creatine Kinase (30-135) U/L CK-MB (CK-2) (0.0-2.4) ng/mL CK-MB (CK-2) Rel Index Troponin I (0.000-0.034) ng/mL Total Protein 7.2 (6.3-8.2) g/dL Albumin 4.0 (3.5-5.0) g/dL Blood Type Blood Type Recheck Antibody Screen Antibody Identification Direct Antiglob Test Spec Expiration Date Disposition Clinical Impression: Hypoxia, Pleural effusion, Acute respiratory failure Disposition: ADMITTED IP TO THIS HOSP Referrals: Shirley Weinberg MD [Primary Care Provider] - 1-2 days
[2018-03-24] MEDS ORDERED: NALOXONE 0.4 MG/ML 1 ML VIAL IV PRN (03:06)
[2018-03-24] MEDS ORDERED: ALBUTEROL NEBULIZED 2.5 MG/3 ML INHALATION PRN (03:07)
--- NOTE | 2018-03-24 03:09 | CT ---
EXAMINATION TYPE: CT chest angio for PE DATE OF EXAM: 03/24/2018 COMPARISON: None HISTORY: Chest pain CT DLP: mGycm Automated exposure control for dose reduction was used. CONTRAST: CT Chest for pulmonary embolism performed with , patient injected with mL of . The contrast was Isovue 75 mL. FINDINGS: There are 3-D post processed images. There are bilateral pleural effusions. There is no mediastinal adenopathy. Thoracic aorta is intact. There is aneurysm of the ascending aorta measures 4.2 cm. There is no dissection. There are no hilar masses. There is normal contrast opacification of the pulmonary arteries. There are no filling defect s. There is a large hiatal hernia. There is basilar pulmonary infiltrate and atelectasis. The heart a ppears enlarged. There is spurring in the thoracic spine. There is lumbar spine posterior fusion surg queta. There is no thoracic compression fracture. IMPRESSION: No evidence of pulmonary embolism. Cardiomegaly. As the attending aortic aneurysm. Moderate pleural effusions with bilateral basilar atelectasis. Large hiatal hernia.
[2018-03-24] MEDS ORDERED: ALPRAZolam 0.25 MG TAB PO STA (03:25)
[2018-03-24 03:53] LABS: Glucose,Whole Blood 101 mg/dL (75-99)
[2018-03-24 05:00] VITALS: BMI 29.2
[2018-03-24] MEDS: oxyCODONE-APAP 10-325MG 1 EACH TAB PO PRN ×2 (05:34→18:46)
[2018-03-24] MEDS: LEVOTHYROXINE 50 MCG TAB PO SCH (05:34)
[2018-03-24] MEDS: CITALOPRAM HYDROBROMIDE 20 MG TAB PO SCH (08:34)
[2018-03-24] MEDS: ASPIRIN 81 MG PO SCH (08:34)
[2018-03-24] MEDS: DISOPYRAMIDE 150 MG PO SCH ×2 (08:34→21:14)
[2018-03-24] MEDS: IPRATROPIUM-ALBUTEROL 3 ML NEB INHALATION SCH ×4 (08:52→20:17)
[2018-03-24] MEDS: LISINOPRIL 2.5 MG TAB PO SCH (11:52)
--- NOTE | 2018-03-24 12:55 | P.HPIM ---
History of Present Illness H&P Date: 03/24/18 Chief Complaint: acute diastolic heart failure/recurrent. This is a 77-year-old female one of Dr. Marino's patients, she has a past medical history of hypertension, hypertensive cardiovascular disease , mitral valve prolapse, supraventricular tachycardia, rheumatoid arthritis, GERD, COPD, and recurrent C. diff colitis. 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 diff at [facility]. The patient had a recent hospitalization in January which time she presented to the hospital with hemoglobin of 4.8. She was seen in consultation by GI and patient was to have follow-up in their office with plan for iron transfusions. Patient states she has follow-up with Dr. Ortiz and was told that no more return visits were necessary at this point as she had no diarrhea and no C. diff was evident. Patient states she has had trouble following up with her physicians because her daughter had a nervous breakdown recently. Patient states she has had shortness of breath and feeling sleepy all the time for the past 2 weeks. She denies any tarry or bloody stools, no diarrhea, no fever no chills, no abdominal pain, no cough. Patient presented with hemoglobin of 5.2 and repeat was 4.4. Patient did receive a total of 4 Packed red blood cells and iron infusion and was just discharged ,went home and developed to have severe respiratory distress was placed on BIPAP and was transferred back to [facility] were she was found to have acute pulmonary edema and did receive 2 doses of lasix and was taken off her BIPAP and she was feeling better, then she was aggressively diuresed using IV Lasix for the next 2 days and after that she was sent home patient went and saw Dr. Espinoza in the office and she was scheduled to go for an IV iron infusion was done yesterday and she was scheduled for another IV infusion for next Wednesday patient went back home and she suddenly developed to have a significant shortness of breath associated with orthopnea and PND she ended up calling EMS and the patient was brought into the ER she was placed on a BiPAP again and she was in acute respiratory failure patient was given Lasix and she was admitted to the hospital for cardiology evaluation, echocardiogram was obtained to check the LV function rule out broken heart syndrome as the patient has been under a lot of stress over the last few months. Review of Systems Constitutional: Denies anorexia, Denies chronic headaches, Denies lethargy, Denies weight gain, Denies weight loss Eyes: denies blurred vision, denies bulging eye, denies decreased vision, denies diplopia Ears: deny: decreased hearing Ears, nose, mouth and throat: Denies dysphagia, Denies neck lump, Denies sore throat Cardiovascular: Reports decreased exercise tolerance, Reports dyspnea on exertion, Reports high blood pressure, Reports shortness of breath, Denies chest pain, Denies rapid heart beat, Denies syncope Respiratory: Denies congestion, Denies cough with sputum, Denies home oxygen, Denies sleep apnea, Denies snoring, Denies wheezing Gastrointestinal: Denies abdominal pain, Denies bloating, Denies BRBPR, Denies excessive gas, Denies melena, Denies nausea, Denies vomiting Genitourinary: Denies dysuria Menstruation: Reports postmenopausal Musculoskeletal: Denies myalgias Musculoskeletal: absent: ankle pain, ankle stiffness, ankle swelling, elbow pain , elbow stiffness, elbow swelling, foot pain, foot stiffness, foot swelling, hand pain, hand stiffness, hand swelling, hip pain, hip stiffness, hip swelling , knee pain, knee stiffness, knee swelling, shoulder pain, shoulder stiffness, shoulder swelling, wrist pain, wrist stiffness, wrist swelling Integumentary: Denies pruritus, Denies rash Neurological: Denies numbness, Denies weakness Psychiatric: Reports anxiety, Reports depression, Reports sleep disturbances, Denies sadness/tearfulness, Denies suicidal ideation Endocrine: Denies fatigue, Denies weight change Past Medical History Past Medical History: Atrial Fibrillation, Atrial Flutter, GERD/Reflux, Hyperlipidemia, Hypertension, Mitral Valve Prolapse (MVP), Rheumatoid Arthritis (RA), Thyroid Disorder Additional Past Medical History / Comment(s): OTHER HX: 03/06/14, 03/30/14, , 07/29/14 with CDIFF colitis, HYPOTHYROID, MVP, urinary incontinence, PROLAPSED MITRAL VALVE- NO PROBLEMS FOR 30 YRS. History of Any Multi-Drug Resistant Organisms: C-DIFF Date of last positivie culture/infection: 11/29/2017 per pt MDRO Source:: none Past Surgical History: Adenoidectomy, Cholecystectomy, Hysterectomy, Joint Replacement, Orthopedic Surgery, Tonsillectomy Additional Past Surgical History / Comment(s): 02/18/16 total R hip arthroplasty. Other surgical HX: BILATERAL KNEE REPLACEMENT (2003-RIGHT & 2006 - LEFT); LOWER LUMBAR LAMINECTOMYL4-L5 (2007); LEFT HIP REPLACEMENT (2012) ; RIGHT SHOULDER REPLACEMENT (2008), left total knee arthroplasty revision. Bilateral cataracts with lens implants. FECALCAL TRASPLANT TX FOR C-DIFF three times. Past Anesthesia/Blood Transfusion Reactions: No Reported Reaction Additional Past Anesthesia/Blood Transfusion Reaction / Comment(s): blood transfusion in past no reactions Smoking Status: Current every day smoker - Past Family History Mother Family Medical History: Cancer Additional Family Medical History / Comment(s): Mother at age 60 with history of emphysema and lung cancer. Father Family Medical History: CVA/TIA Additional Family Medical History / Comment(s): Father at age 74 with problems with his larynx. Sister(s) Family Medical History: Unable to Obtain Daughter(s) Family Medical History: COPD, Myocardial Infarction ([place]) Additional Family Medical History / Comment(s): Mother at age 60 yrs of emphysema/lung CA Son(s) Family Medical History: Myocardial Infarction ([place]) Additional Family Medical History / Comment(s): Father at age 74yrs with "CVA of his larynx" Medications and Allergies Home Medications Medication Instructions Recorded Confirmed Type Levothyroxine Sodium [Synthroid] 50 mcg PO QAM 03/03/14 03/23/18 History Aspirin 81 mg PO QAM 07/29/14 03/23/18 History Atenolol 100 mg PO HS 09/25/15 03/23/18 History ALPRAZolam [Xanax] 2 mg PO HS 07/17/16 03/23/18 History Disopyramide Phosphate [Norpace Cr] 150 mg PO BID 10/28/17 03/23/18 History Multivit-Min/Iron/Folic/Lutein 1 tab PO DAILY 10/28/17 03/23/18 History [Centrum Silver Women Tablet] Zolpidem [Ambien] 10 mg PO HS 10/28/17 03/23/18 History Ferrous Sulfate [Feosol] 325 mg PO DAILY #30 tab 01/17/18 03/23/18 Rx Albuterol Inhaler [Ventolin Hfa 2 puff INHALATION RT-QID PRN 03/15/18 03/23/18 History Inhaler] Citalopram Hydrobromide [CeleXA] 40 mg PO DAILY 03/15/18 03/23/18 History Esomeprazole Magnesium [NexIUM] 40 mg PO DAILY 03/15/18 03/23/18 History Latanoprost [Xalatan 0.005%] 1 drop BOTH EYES HS 03/15/18 03/23/18 History oxyCODONE-APAP 10-325MG [Percocet 1 tab PO Q6HR PRN 03/18/18 03/23/18 History 10-325 mg] Benzonatate [Tessalon Perles] 100 mg PO TID PRN #30 capsule 03/21/18 03/23/18 Rx Ipratropium-Albuterol Nebulize 3 ml INHALATION RT-QID 03/23/18 03/23/18 History [Duoneb 0.5 mg-3 mg/3 ml Soln] Allergies Allergy/AdvReac Type Severity Reaction Status Date / Time adhesive tape Allergy Rash/Hives Verified 03/18/18 20:13 Influenza Virus Vaccines Allergy "MAKES HER Verified 03/18/18 20:13 FEEL SICK" Sulfa (Sulfonamide Allergy Rash/Hives Verified 03/18/18 20:13 Antibiotics) amoxicillin trihydrate AdvReac Diarrhea Verified 03/18/18 20:13 [From Augmentin] ciprofloxacin [From Cipro] AdvReac Unknown Verified 03/18/18 20:13 metronidazole [From Flagyl] AdvReac Unknown Verified 03/18/18 20:13 potassium clavulanate AdvReac Diarrhea Verified 03/18/18 20:13 [From Augmentin] quinidine AdvReac BLOOD CLOTS Verified 03/18/18 20:13 Physical Exam Vitals: Vital Signs Temp Pulse Pulse Resp BP BP Pulse Ox 03/24/18 12:24 60 03/24/18 12:12 62 03/24/18 09:02 60 03/24/18 08:53 60 03/24/18 07:00 98.1 F 58 L 16 127/70 97 03/24/18 04:30 100 03/24/18 03:36 98.8 F 60 16 141/76 98 03/24/18 03:26 97.9 F 57 L 18 124/76 100 03/24/18 01:00 49 L 126/69 03/23/18 23:30 50 L 115/90 03/23/18 23:00 51 L 19 139/89 03/23/18 22:30 143/95 98 03/23/18 22:19 143/95 99 03/23/18 22:13 62 28 H 143/95 99 Intake and Output 03/23/18 03/24/18 03/24/18 22:59 06:59 14:59 Other: Voiding Method Bedpan # Voids 1 1 Weight 77.111 kg 77.111 kg 77.111 kg - Constitutional General appearance: average body habitus, no acute distress - EENT Eyes: anicteric sclerae, EOMI, PERRLA, no ptosis, no scleral icterus, normal appearance ENT: hearing grossly normal, NA/AT, normal oropharynx, no thrush Ears: bilateral: bulging - Neck Neck: no lymphadenopathy, normal ROM, no rigidity, no stridor, no thyromegaly Carotids: bilateral: upstroke normal Thyroid: bilateral: normal size - Respiratory Respiratory: bilateral: diminished, negative: dullness, rales, rhonchi, wheezing , prolonged expiration, prolonged inspiration - Cardiovascular Rhythm: regular Heart sounds: normal: S1, S2 Abnormal Heart Sounds: systolic murmur, no S3 Gallop - Gastrointestinal General gastrointestinal: normal bowel sounds, soft, no splenomegaly, no tenderness, no umbilical hernia - Integumentary Integumentary: normal, normal turgor - Neurologic Neurologic: CNII-XII intact - Musculoskeletal Musculoskeletal: generalized weakness, strength equal bilaterally - Psychiatric Psychiatric: A&O x's 3, appropriate affect, intact judgment & insight Results CBC & Chem 7: 03/23/18 22:40 03/23/18 22:40 Labs: Abnormal Lab Results - Last 24 Hours (Table) 03/23/18 03/23/18 03/24/18 Range/Units 22:40 22:40 03:51 Hgb 10.8 L (11.4-16.0) gm/dL MCH 24.2 L (25.0-35.0) pg MCHC 28.7 L (31.0-37.0) g/dL RDW 20.3 H (11.5-15.5) % Lymphocytes # 0.8 L (1.0-4.8) k/uL Glucose 203 H (74-99) mg/dL POC Glucose (mg/dL) 101 H (75-99) mg/dL Thrombosis Risk Factor Assmnt - DVT/VTE Prophylaxis DVT/VTE Prophylaxis: Pharmacologic Prophylaxis ordered, Mechanical Prophylaxis ordered - Choose All That Apply Each Factor Represents 1 point: Serious lung disease incl. pneumonia (< 1month) Thrombosis Risk Factor Assessment Total Risk Factor Score: 1 Thrombosis Risk Factor Assessment Level: Low Risk Assessment and Plan Assessment: Assessment and plan: 1. Acute respiratory failure due acute diastolic heart failure rule out broken heart syndrome. . continue with lasix 40 mg IVP Q 12 hours and Nebulized treatment Duoneb 3 ml inhalation QID and O2 support ,we will continue with daily weight and monitor BMP and Magnesium. 2. Acute anemia with history of anemia of chronic disease. No signs of bleeding. S/P 4 units of PRBCs and Ferrlicit infusion. 3. History of C.Difficile colitis status post fecal transplant at [facility]. Monitor closely. Avoid antibiotics. 4. History of SVT. Stable, Norpace 150 mg twice a day. 5. Hypertension and hypertensive cardiovascular disease. Continue Norpace. 6. GERD. Continue Protonix 40 mg IV twice daily 7. Rheumatoid arthritis. Stable. 8. Hypothyroidism. Continue levothyroxine 50 MCG daily 9. Generalized anxiety disorder. Continue Xanax 2 mg every hs. 10. DVT prophylaxis. SCDs and TIMOTEO hose 11. GI prophylaxis. Protonix 40 mg daily. Patient will be admitted to the hospital for a minimum of 2 night stay. Discharge plan: Most likely return home
[2018-03-24] MEDS: HEPARIN SODIUM,PORCINE 5,000 UNIT/ML 1 ML VIAL SQ SCH (13:10)
[2018-03-24] MEDS: ALPRAZolam 1 MG TAB PO SCH (21:14)
[2018-03-24] MEDS: FUROSEMIDE 10 MG/ML 4 ML VIAL IV SCH (21:14)
[2018-03-24] MEDS: LATANOPROST 0.005% OPHTH DROPS 2.5 ML BTL BOTH EYES SCH (21:14)
[2018-03-24] MEDS: POTASSIUM CHLORIDE ER 20 MEQ TAB.ER PO SCH (21:15)
[2018-03-24] MEDS: ZOLPIDEM 10 MG TAB PO SCH (21:15)
[2018-03-24] MEDS: ATENOLOL 50 MG TAB PO SCH (21:15)
[2018-03-25] MEDS: HEPARIN SODIUM,PORCINE 5,000 UNIT/ML 1 ML VIAL SQ SCH ×3 (00:58→23:25)
[2018-03-25] MEDS: LEVOTHYROXINE 50 MCG TAB PO SCH (05:57)
[2018-03-25] MEDS: FERROUS SULFATE 325 MG TAB PO SCH (08:31)
[2018-03-25] MEDS: CITALOPRAM HYDROBROMIDE 20 MG TAB PO SCH (08:31)
[2018-03-25] MEDS: DISOPYRAMIDE 150 MG PO SCH (08:31)
[2018-03-25] MEDS: MULTIVITAMINS, THERA 1 EACH TAB PO SCH (08:31)
[2018-03-25] MEDS: LISINOPRIL 2.5 MG TAB PO SCH (08:31)
[2018-03-25] MEDS: ASPIRIN 81 MG PO SCH (08:31)
[2018-03-25] MEDS: PANTOPRAZOLE 40 MG TABLET PO SCH (08:31)
[2018-03-25] MEDS: FUROSEMIDE 10 MG/ML 4 ML VIAL IV SCH ×2 (08:32→21:40)
[2018-03-25] MEDS: POTASSIUM CHLORIDE ER 20 MEQ TAB.ER PO SCH ×2 (08:32→21:40)
[2018-03-25 08:45] LABS: Anisocytosis Moderate; Basophils % (A) 1 %; Eosinophils # (A) 0.1 k/uL (0-0.7); Eosinophils % (A) 2 %; HCT 32.1 % (34.0-46.0); Hypochromasia Marked; Lymphocytes % (A) 20 %; MCH 24.5 pg (25.0-35.0); MCHC 28.3 g/dL (31.0-37.0); MCV 86.5 fL (80.0-100.0); Mean Platelet Volume 6.6; Microcytosis Slight; Monocytes # (A) 0.4 k/uL (0-1.0); Monocytes % (A) 8 %; Neutrophils # (A) 3.5 k/uL (1.3-7.7); Neutrophils % (A) 68 %; Platelet Count 261 k/uL (150-450); Poikilocytosis Moderate; RBC 3.71 m/uL (3.80-5.40); WBC 5.1 k/uL (3.8-10.6)
[2018-03-25 08:53] LABS: HGB 9.1 gm/dL (11.4-16.0)
[2018-03-25 09:06] LABS: Albumin 3.3 g/dL (3.5-5.0); Calcium 8.6 mg/dL (8.4-10.2); Magnesium 1.7 mg/dL (1.6-2.3); Potassium 3.7 mmol/L (3.5-5.1); Total Bilirubin 0.4 mg/dL (0.2-1.3); Total Protein 6.1 g/dL (6.3-8.2)
[2018-03-25] MEDS: oxyCODONE-APAP 10-325MG 1 EACH TAB PO PRN ×2 (10:14→18:18)
[2018-03-25] MEDS: IPRATROPIUM-ALBUTEROL 3 ML NEB INHALATION SCH ×4 (10:31→21:11)
--- NOTE | 2018-03-25 11:31 | ECHOF ---
Referral Reason:LVF MEASUREMENTS -------- HEIGHT: 162.6 cm WEIGHT: 77.1 kg BP: 127/70 RVIDd: 3.9 cm (< 3.3) IVSd: 1.2 cm (0.6 - 1.1) LVIDd: 4.3 cm (3.9 - 5.3) LVPWd: 1.3 cm (0.6 - 1.1) IVSs: 1.6 cm LVIDs: 2.4 cm LVPWs: 1.6 cm LA Diam: 4.0 cm (2.7 - 3.8) LAESV Index (A-L): 37.54 ml/m Ao Diam: 3.5 cm (2.0 - 3.7) AV Cusp: 1.7 cm (1.5 - 2.6) MV EXCURSION: 18.395 mm (> 18.000) MV EF SLOPE: 37 mm/s (70 - 150) EPSS: 0.5 cm MV E Jem: 1.64 m/s MV DecT: 216 ms MV A Jem: 1.10 m/s MV E/A Ratio: 1.49 AV maxP.22 mmHg AV meanP.31 mmHg RAP: 5.00 mmHg RVSP: 36.35 mmHg FINDINGS -------- Sinus rhythm. This was a technically good study. The left ventricular size is normal. There is mild concentric left ventricular hypertrophy. Overa ll left ventricular systolic function is mild-moderately impaired with, an EF between 40 - 45 %. Mi d anterior LV wall motion is hypokinetic. Mid anteroseptal LV wall motion is hypokinetic. Apica l anterior LV wall motion is hypokinetic. Apical septum LV wall motion is hypokinetic. The right ventricle is mild to moderately enlarged. LA is moderately dilated 34-39 ml/m2 The right atrium is normal in size. There is moderate aortic valve sclerosis. There is moderate aortic stenosis present. Peak/mean gr adient across the Aortic Valve is 42.22mmHg / 22.31mmHg. The mitral valve leaflets are mildly thickened. Mild mitral regurgitation is present. Mild tricuspid regurgitation present. There is mild pulmonary hypertension. The right ventricular systolic pressure, as measured by Doppler, is 36.35mmHg. Moderate pulmonic regurgitation. The aortic root size is normal. Normal inferior vena cava with normal inspiratory collapse consistent with estimated right atrial pre ssure of 5 mmHg. The inferior vena cava is mildly dilated. There is no pericardial effusion. CONCLUSIONS -------- 1. Sinus rhythm. 2. This was a technically good study. 3. The left ventricular size is normal. 4. There is mild concentric left ventricular hypertrophy. 5. Overall left ventricular systolic function is mild-moderately impaired with, an EF between 40 - 45 %. 6. Mid anteroseptal LV wall motion is hypokinetic. 7. Apical anterior LV wall motion is hypokinetic. 8. Apical septum LV wall motion is hypokinetic. 9. The right ventricle is mild to moderately enlarged. 10. LA is moderately dilated 34-39 ml/m2 11. There is moderate aortic valve sclerosis. 12. There is moderate aortic stenosis present. 13. Peak/mean gradient across the Aortic Valve is 42.22mmHg / 22.31mmHg. 14. The mitral valve leaflets are mildly thickened. 15. Mild mitral regurgitation is present. 16. Mild tricuspid regurgitation present. 17. There is mild pulmonary hypertension. 18. Moderate pulmonic regurgitation. 19. The aortic root size is normal. 20. Normal inferior vena cava with normal inspiratory collapse consistent with estimated right atrial pressure of 5 mmHg. 21. The inferior vena cava is mildly dilated. 22. There is no pericardial effusion. ROPE LAYING MACHINE OPERATOR: Leslie Cortes RDCS
--- NOTE | 2018-03-25 13:51 | P.CRDCN ---
History of Present Illness History of present illness: This is a pleasant 77-year-old female past medical history significant for hypertension, paroxysmal SVT, aortic stenosis, mitral valve prolapse with mitral regurgitation, COPD, dyslipidemia and chronic nicotine dependence. She is to follow the office with Dr. Almendarez but has not followed since early 1999. If he has to see her in consultation secondary to exertional shortness of breath and heart failure. Echocardiogram has been obtained and reveals mild to moderately impaired left ventricular systolic function with ejection fraction 40-45%, mid anteroseptal, apical anterior and apical septal wall motion hypokinesia, moderately dilated left atrium, mild aortic valve sclerosis, moderate aortic stenosis with a mean gradient across the valve of 22 mmHg, mildly thickened mitral valve leaflets, mild mitral regurgitation, mild tricuspid regurgitation and mild pulmonary hypertension with an RVSP of 36 mmHg. She presented to the hospital 2 days ago with symptoms of increased shortness of breath with exertion. Chest x-ray obtained on admission reveals cardiomegaly and pulmonary fibrosis with no gross heart failure noted. She states that she was at home she was becoming significantly short of breath with exertion. She was unable to go from the bedroom to the bathroom without having to stop to take a breath. Initially since she sat down her breathing would greatly improve. However prior to coming in the shortness of breath had increased to at rest as well as with exertion. She felt as though she was having a very difficult time catching her breath and she was unable to lay flat in bed without feeling extremely short of breath. She also noticed increased swelling of her lower extremities. Since arrival she is started on IV Lasix and states she has been up and down to the bathroom multiple times and is feeling much better. Lower extremity has improved per the patient and his noted only be trace at this time. She states she can get up and use the restroom using her walker without feeling significantly short of breath. She denies symptoms of chest discomfort, dizziness or palpitations. She is seen and examined resting comfortably lying flat in bed in no acute distress. She also states she has lost approximately 30 pounds in the previous 6 weeks secondary to poor oral intake and having no appetite. Per the patient she has undergone cardiac catheterization in the past approximately 20 years ago and was told she has no blockages. Those records are unavailable to me at this time. EKG reveals sinus bradycardia heart rate of 54 with a first-degree AV block, inferior Q waves noted as well as evidence of old anterior wall myocardial infarction. CTA chest reveals no evidence of pulmonary embolism with cardiomegaly as well as moderate pleural effusions and bibasilar and a large hiatal hernia. Laboratory data reviewed, WBC 5.1, hemoglobin 9.1, platelets 261, sodium 140, potassium 3.7, magnesium 1.7, creatinine 0.75, GFR 78, cardiac enzymes negative 1, ENT proBNP 3080. Most recent echocardiogram in 2017 reveals preserved left ventricular systolic function with ejection fraction 60-65%, mitral regurgitation and aortic stenosis with a mean of 17 mmHg. She underwent a dobutamine stress echocardiogram in 2013 that was negative for stress-induced ischemia. At the time of my exam: CONSTITUTIONAL: Denies fever. Denies chills. EYES: Denies blurred vision. Denies vision changes. Denies eye pain. EARS, NOSE, MOUTH & THROAT: Denies headache. Denies sore throat. Denies ear pain. CARDIOVASCULAR: Denies chest pain. Denies shortness of breath. Denies orthopnea. Denies PND. Denies palpitations. RESPIRATORY: Denies cough. GASTROINTESTINAL: Denies abdominal pain. Denies diarrhea. Denies constipation. Denies nausea. Denies vomiting. MUSCULOSKELETAL: Denies myalgias. INTEGUMENTARY: Denies pruitis. Denies rash. NEUROLOGIC: Denies numbness. Denies tingling. Denies weakness. PSYCHIATRIC: Denies anxiety. Denies depression. ENDOCRINE: Denies fatigue. Denies weight change. Denies polydipsia. Denies polyurina. GENITOURINARY: Denies burning, hematuria or urgency with micturation. HEMATOLOGIC: Denies history of anemia. Denies bleeding. Blood pressure 121/74 heart rate 52 afebrile maintaining oxygen saturation on room air GENERAL: This is a 77-year-old female in no apparent distress at the time of my examination. HEENT: Head is atraumatic, normocephalic. Pupils are equal, round. Sclerae anicteric. Conjunctivae are clear. Mucous membranes of the mouth are moist. Neck is supple. There is no jugular venous distention. No carotid bruit is heard. LUNGS: Clear to auscultation no wheezes, rales or rhonchi. No chest wall tenderness is noted on palpation or with deep breathing. Diminished bilaterally. HEART: Regular rate and rhythm with systolic ejection murmur at the base and the apex, no rubs or gallops. S1 and S2 heard. ABDOMEN: Soft, nontender. Bowel sounds are heard. No organomegaly noted. EXTREMITIES: Trace bilateral lower extremity edema. No calf tenderness noted. VASCULAR: Radial and dorsalis pedis pulses palpated, no evidence of clubbing. NEUROLOGIC: Patient is awake, alert and oriented x3. ASSESSMENT Acute systolic heart failure, new since echocardiogram obtained in 2017. Unknown if due to ischemic or nonischemic cardiomyopathy. Will require cardiac catheterization once hemodynamically stable. History of SVT in the past, has been on norpace for 20+ years. Hypertension Dyslipidemia Aortic stenosis, mean gradient 22 mmHg Mitral regurgitation COPD Recent anemia requiring transfusion Chronic nicotine dependence PLAN Continue IV lasix as previously ordered. Follow renal function and electrolytes in the morning. Document daily weights along with intake and output to accurately assess disuresis. Discontinue norpace permanently. Continue atenolol 100 mg daily, may increase if needed. Continue lisinopril. Once she is hemodynamically stable from a heart failure perspective, she will require cardiac catheterization to assess coronary arteries. Smoking cessation recommended. We will continue to follow and make recommendations accordingly. Thank you kindly for this consultation. Nurse Practitioner note has been reviewed, I agree with a documented findings and plan of care. Patient was seen and examined. Past Medical History Past Medical History: Atrial Fibrillation, Atrial Flutter, GERD/Reflux, Hyperlipidemia, Hypertension, Mitral Valve Prolapse (MVP), Rheumatoid Arthritis (RA), Thyroid Disorder Additional Past Medical History / Comment(s): OTHER HX: 03/06/14, 03/30/14, , 07/29/14 with CDIFF colitis, HYPOTHYROID, MVP, urinary incontinence, PROLAPSED MITRAL VALVE- NO PROBLEMS FOR 30 YRS. History of Any Multi-Drug Resistant Organisms: C-DIFF Date of last positivie culture/infection: 11/29/2017 per pt MDRO Source:: none Past Surgical History: Adenoidectomy, Cholecystectomy, Hysterectomy, Joint Replacement, Orthopedic Surgery, Tonsillectomy Additional Past Surgical History / Comment(s): 02/18/16 total R hip arthroplasty. Other surgical HX: BILATERAL KNEE REPLACEMENT (2003-RIGHT & 2005 - LEFT); LOWER LUMBAR LAMINECTOMYL4-L5 (2007); LEFT HIP REPLACEMENT (2012) ; RIGHT SHOULDER REPLACEMENT (2008), left total knee arthroplasty revision. Bilateral cataracts with lens implants. FECALCAL TRASPLANT TX FOR C-DIFF three times. Past Anesthesia/Blood Transfusion Reactions: No Reported Reaction Additional Past Anesthesia/Blood Transfusion Reaction / Comment(s): blood transfusion in past no reactions Smoking Status: Current every day smoker - Past Family History Mother Family Medical History: Cancer Additional Family Medical History / Comment(s): Mother at age 60 with history of emphysema and lung cancer. Father Family Medical History: CVA/TIA Additional Family Medical History / Comment(s): Father at age 74 with problems with his larynx. Sister(s) Family Medical History: Unable to Obtain Daughter(s) Family Medical History: COPD, Myocardial Infarction (NM) Additional Family Medical History / Comment(s): Mother at age 60 yrs of emphysema/lung CA Son(s) Family Medical History: Myocardial Infarction (NM) Additional Family Medical History / Comment(s): Father at age 74yrs with "CVA of his larynx" Medications and Allergies Home Medications Medication Instructions Recorded Confirmed Type Levothyroxine Sodium [Synthroid] 50 mcg PO QAM 03/03/14 03/23/18 History Aspirin 81 mg PO QAM 07/29/14 03/23/18 History Atenolol 100 mg PO HS 09/25/15 03/23/18 History ALPRAZolam [Xanax] 2 mg PO HS 07/17/16 03/23/18 History Disopyramide Phosphate [Norpace Cr] 150 mg PO BID 10/28/17 03/23/18 History Multivit-Min/Iron/Folic/Lutein 1 tab PO DAILY 10/28/17 03/23/18 History [Centrum Silver Women Tablet] Zolpidem [Ambien] 10 mg PO HS 10/28/17 03/23/18 History Ferrous Sulfate [Feosol] 325 mg PO DAILY #30 tab 01/17/18 03/23/18 Rx Albuterol Inhaler [Ventolin Hfa 2 puff INHALATION RT-QID PRN 03/15/18 03/23/18 History Inhaler] Citalopram Hydrobromide [CeleXA] 40 mg PO DAILY 03/15/18 03/23/18 History Esomeprazole Magnesium [NexIUM] 40 mg PO DAILY 03/15/18 03/23/18 History Latanoprost [Xalatan 0.005%] 1 drop BOTH EYES HS 03/15/18 03/23/18 History oxyCODONE-APAP 10-325MG [Percocet 1 tab PO Q6HR PRN 03/18/18 03/23/18 History 10-325 mg] Benzonatate [Tessalon Perles] 100 mg PO TID PRN #30 capsule 03/21/18 03/23/18 Rx Ipratropium-Albuterol Nebulize 3 ml INHALATION RT-QID 03/23/18 03/23/18 History [Duoneb 0.5 mg-3 mg/3 ml Soln] Allergies Allergy/AdvReac Type Severity Reaction Status Date / Time adhesive tape Allergy Rash/Hives Verified 03/18/18 20:13 Influenza Virus Vaccines Allergy "MAKES HER Verified 03/18/18 20:13 FEEL SICK" Sulfa (Sulfonamide Allergy Rash/Hives Verified 03/18/18 20:13 Antibiotics) amoxicillin trihydrate AdvReac Diarrhea Verified 03/18/18 20:13 [From Augmentin] ciprofloxacin [From Cipro] AdvReac Unknown Verified 03/18/18 20:13 metronidazole [From Flagyl] AdvReac Unknown Verified 03/18/18 20:13 potassium clavulanate AdvReac Diarrhea Verified 03/18/18 20:13 [From Augmentin] quinidine AdvReac BLOOD CLOTS Verified 03/18/18 20:13 Physical Exam Vitals: Vital Signs Temp Pulse Pulse Resp BP Pulse Ox 03/25/18 10:42 60 03/25/18 10:34 60 03/25/18 06:55 97.7 F 52 L 16 121/74 97 03/25/18 00:57 97.6 F 50 L 16 107/59 99 03/24/18 20:43 98.6 F 75 18 120/65 98 03/24/18 20:27 61 03/24/18 20:19 61 03/24/18 16:03 62 03/24/18 15:53 60 03/24/18 15:00 98.0 F 60 15 126/72 97 Intake and Output 03/24/18 03/25/18 03/25/18 22:59 06:59 14:59 Other: # Voids 1 1 1 Weight 77 kg Results 03/25/18 06:43 03/25/18 06:43 Cardiac Enzymes 03/25/18 Range/Units 06:43 AST 28 (14-36) U/L CBC 03/25/18 Range/Units 06:43 WBC 5.1 (3.8-10.6) k/uL RBC 3.71 L (3.80-5.40) m/uL Hgb 9.1 L D (11.4-16.0) gm/dL Hct 32.1 L (34.0-46.0) % Plt Count 261 (150-450) k/uL Comprehensive Metabolic Panel 03/25/18 Range/Units 06:43 Sodium 140 (137-145) mmol/L Potassium 3.7 (3.5-5.1) mmol/L Chloride 102 (98-107) mmol/L Carbon Dioxide 30 (22-30) mmol/L BUN 10 (7-17) mg/dL Creatinine 0.75 (0.52-1.04) mg/dL Glucose 66 L (74-99) mg/dL Calcium 8.6 (8.4-10.2) mg/dL AST 28 (14-36) U/L ALT 14 (9-52) U/L Alkaline Phosphatase 68 (38-126) U/L Total Protein 6.1 L (6.3-8.2) g/dL Albumin 3.3 L (3.5-5.0) g/dL Current Medications Generic Name Dose Route Start Last Admin Trade Name Freq PRN Reason Stop Dose Admin Albuterol Sulfate 2 mg 03/24/18 03:07 Ventolin Nebulized INHALATION RT-QID PRN Shortness Of Breath Albuterol/Ipratropium 3 ml 03/24/18 08:00 03/25/18 10:31 Duoneb 0.5 Mg-3 Mg/3 Ml Soln INHALATION 3 ml RT-QID KACY Administration Alprazolam 2 mg 03/24/18 21:00 03/24/18 21:14 Xanax PO 2 mg HS KACY Administration Aspirin 81 mg 03/24/18 09:00 03/25/18 08:31 Aspirin PO 81 mg QAM KACY Administration Atenolol 100 mg 03/24/18 21:00 03/24/18 21:15 Tenormin PO 100 mg HS KACY Administration Citalopram Hydrobromide 40 mg 03/24/18 09:00 03/25/18 08:31 Celexa PO 40 mg DAILY KACY Administration Ferrous Sulfate 325 mg 03/25/18 12:00 03/25/18 08:31 Feosol PO 325 mg DAILY@1200 KACY Administration Furosemide 40 mg 03/24/18 21:00 03/25/18 08:32 Lasix IV 40 mg Q12HR KACY Administration Heparin Sodium (Porcine) 5,000 unit 03/24/18 13:00 03/25/18 12:48 Heparin SQ 5,000 unit Q12H KACY Administration Latanoprost 1 drops 03/24/18 21:00 03/24/18 21:14 Xalatan 0.005% BOTH EYES 1 drops HS KACY Administration Levothyroxine Sodium 50 mcg 03/24/18 06:30 03/25/18 05:57 Synthroid PO 50 mcg DAILY@0630 KACY Administration Lisinopril 2.5 mg 03/24/18 11:15 03/25/18 08:31 Zestril PO 2.5 mg DAILY KACY Administration Multivitamins 1 each 03/25/18 12:00 03/25/18 08:31 Theragran PO 1 each DAILY@1200 KACY Administration Naloxone HCl 0.2 mg 03/24/18 03:06 Narcan IV Q2M PRN Opioid Reversal Oxycodone/Acetaminophen 1 each 03/24/18 03:07 03/25/18 10:14 Percocet 10-325 PO 1 each Q6HR PRN Administration Pain Control Pantoprazole Sodium 40 mg 03/25/18 07:30 03/25/18 08:31 Protonix PO 40 mg AC-[id number] KACY Administration Potassium Chloride 20 meq 03/24/18 21:00 03/25/18 08:32 K-Dur 20 PO 20 meq BID KACY Administration Zolpidem Tartrate 10 mg 03/24/18 21:00 03/24/18 21:15 Ambien PO 10 mg HS KACY Administration Intake and Output 03/24/18 03/25/18 03/25/18 22:59 06:59 14:59 Other: # Voids 1 1 1 Weight 77 kg Patient Weight 03/26/18 06:59 Weight 77 kg 03/25/18 06:43 03/25/18 06:43
--- NOTE | 2018-03-25 15:18 | P.PN ---
Subjective Progress Note Date: 03/25/18 This is a 77-year-old female one of Dr. Marino's patients, she has a past medical history of hypertension, hypertensive cardiovascular disease , mitral valve prolapse, supraventricular tachycardia, rheumatoid arthritis, GERD, COPD, and recurrent C. diff colitis. 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 diff at [facility] 3. The patient had a recent hospitalization in January which time she presented to the hospital with hemoglobin of 4.8. She was seen in consultation by GI and patient was to have follow-up in their office with plan for iron transfusions. Patient states she has follow-up with Dr. Ortiz and was told that no more return visits were necessary at this point as she had no diarrhea and no C. diff was evident. Patient states she has had trouble following up with her physicians because her daughter had a nervous breakdown recently. Patient states she has had shortness of breath and feeling sleepy all the time for the past 2 weeks. She denies any tarry or bloody stools, no diarrhea, no fever no chills, no abdominal pain, no cough. Patient presented with hemoglobin of 5.2 and repeat was 4.4. Patient did receive a total of 4 Packed red blood cells and iron infusion and was just discharged ,went home and developed to have severe respiratory distress was placed on BIPAP and was transferred back to [facility] were she was found to have acute pulmonary edema and did receive 2 doses of lasix and was taken off her BIPAP and she was feeling better, then she was aggressively diuresed using IV Lasix for the next 2 days and after that she was sent home patient went and saw Dr. Espinoza in the office and she was scheduled to go for an IV iron infusion was done yesterday and she was scheduled for another IV infusion for next Wednesday patient went back home and she suddenly developed to have a significant shortness of breath associated with orthopnea and PND she ended up calling EMS and the patient was brought into the ER she was placed on a BiPAP again and she was in acute respiratory failure patient was given Lasix and she was admitted to the hospital for cardiology evaluation, echocardiogram was obtained to check the LV function rule out broken heart syndrome as the patient has been under a lot of stress over the last few months. 03/25: We will add in consult with cardiology for heart failure. Echocardiogram report is still pending. Patient states that her breathing is improved. She is concerned about having a diagnosis of heart failure. We will continue IV Lasix at 40 mg every 12 hours. No weight loss. Hemoglobin 9.1, creatinine 0.75, electrolytes are within normal limits. Review of Systems Constitutional: Denies anorexia, Denies chronic headaches, Denies lethargy, Denies weight gain, Denies weight loss Eyes: denies blurred vision, denies bulging eye, denies decreased vision, denies diplopia Ears: deny: decreased hearing Ears, nose, mouth and throat: Denies dysphagia, Denies neck lump, Denies sore throat Cardiovascular: Reports decreased exercise tolerance, Reports dyspnea on exertion, Reports high blood pressure, Reports shortness of breath, Denies chest pain, Denies rapid heart beat, Denies syncope Respiratory: Denies congestion, Denies cough with sputum, Denies home oxygen, Denies sleep apnea, Denies snoring, Denies wheezing Gastrointestinal: Denies abdominal pain, Denies bloating, Denies BRBPR, Denies excessive gas, Denies melena, Denies nausea, Denies vomiting Genitourinary: Denies dysuria Menstruation: Reports postmenopausal Musculoskeletal: Denies myalgias Musculoskeletal: absent: ankle pain, ankle stiffness, ankle swelling, elbow pain , elbow stiffness, elbow swelling, foot pain, foot stiffness, foot swelling, hand pain, hand stiffness, hand swelling, hip pain, hip stiffness, hip swelling , knee pain, knee stiffness, knee swelling, shoulder pain, shoulder stiffness, shoulder swelling, wrist pain, wrist stiffness, wrist swelling Integumentary: Denies pruritus, Denies rash Neurological: Denies numbness, Denies weakness Psychiatric: Reports anxiety, Reports depression, Reports sleep disturbances, Denies sadness/tearfulness, Denies suicidal ideation Endocrine: Denies fatigue, Denies weight change Objective - Vital Signs Vital signs: Vital Signs Temp 97.7 F 03/25/18 06:55 Pulse 60 03/25/18 10:42 Resp 16 03/25/18 06:55 BP 121/74 03/25/18 06:55 Pulse Ox 97 03/25/18 06:55 Intake & Output 03/24/18 03/25/18 03/25/18 18:59 06:59 18:59 Weight 77.111 kg Other: Voiding Method Bedpan # Voids 1 1 1 - Exam General appearance: average body habitus, no acute distress while at rest - EENT Eyes: anicteric sclerae, EOMI, PERRLA, no ptosis, no scleral icterus, normal appearance ENT: hearing grossly normal, NA/AT, normal oropharynx, no thrush Ears: bilateral: bulging - Neck Neck: no lymphadenopathy, normal ROM, no rigidity, no stridor, no thyromegaly Carotids: bilateral: upstroke normal Thyroid: bilateral: normal size - Respiratory Respiratory: bilateral: diminished, negative: dullness, rales, rhonchi, wheezing , prolonged expiration, prolonged inspiration - Cardiovascular Rhythm: regular Heart sounds: normal: S1, S2 Abnormal Heart Sounds: systolic murmur, no S3 Gallop - Gastrointestinal General gastrointestinal: normal bowel sounds, soft, no splenomegaly, no tenderness, no umbilical hernia - Integumentary Integumentary: normal, normal turgor - Neurologic Neurologic: CNII-XII intact - Musculoskeletal Musculoskeletal: generalized weakness, strength equal bilaterally - Psychiatric Psychiatric: A&O x's 3, appropriate affect, intact judgment & insight - Labs CBC & Chem 7: 03/25/18 06:43 03/25/18 06:43 Labs: Abnormal Lab Results - Last 24 Hours (Table) 03/25/18 03/25/18 Range/Units 06:43 06:43 RBC 3.71 L (3.80-5.40) m/uL Hgb 9.1 L D (11.4-16.0) gm/dL Hct 32.1 L (34.0-46.0) % MCH 24.5 L (25.0-35.0) pg MCHC 28.3 L (31.0-37.0) g/dL RDW 20.0 H (11.5-15.5) % Glucose 66 L (74-99) mg/dL Total Protein 6.1 L (6.3-8.2) g/dL Albumin 3.3 L (3.5-5.0) g/dL Assessment and Plan Plan: 1. Acute hypoxic respiratory failure due acute diastolic heart failure rule out broken heart syndrome. Continue with lasix 40 mg IVP Q 12 hours and Nebulized treatment Duoneb 3 ml inhalation QID and O2 support ,we will continue with daily weight and monitor BMP and Magnesium. Consult cardiology. Echocardiogram report pending. 2. Acute anemia with history of anemia of chronic disease. No signs of bleeding. S/P 4 units of PRBCs and Ferrlicit infusion. 3. History of C.Difficile colitis status post fecal transplant at [facility]. Monitor closely. Avoid antibiotics. 4. History of SVT. Stable, Norpace 150 mg twice a day. 5. Hypertension and hypertensive cardiovascular disease. Continue Norpace. 6. GERD. Continue Protonix 40 mg IV twice daily 7. Rheumatoid arthritis. Stable. 8. Hypothyroidism. Continue levothyroxine 50 MCG daily 9. Generalized anxiety disorder. Continue Xanax 2 mg every hs. 10. DVT prophylaxis. SCDs and TIMOTEO hose 11. GI prophylaxis. Protonix 40 mg daily. Discharge plan: Most likely return home Impression and plan of care have been directed as dictated by the signing physician. Domenica Reed nurse practitioner acting as scribe for signing physician.
[2018-03-25] MEDS: LATANOPROST 0.005% OPHTH DROPS 2.5 ML BTL BOTH EYES SCH (21:40)
[2018-03-25] MEDS: ALPRAZolam 1 MG TAB PO SCH (21:40)
[2018-03-25] MEDS: ATENOLOL 50 MG TAB PO SCH (21:40)
[2018-03-25] MEDS: ZOLPIDEM 10 MG TAB PO SCH (22:19)
[2018-03-26] MEDS: LEVOTHYROXINE 50 MCG TAB PO SCH (07:31)
[2018-03-26] MEDS: oxyCODONE-APAP 10-325MG 1 EACH TAB PO PRN ×3 (07:33→20:36)
[2018-03-26 08:15] LABS: Anion Gap 8 mmol/L; Blood Urea Nitrogen 10 mg/dL (7-17); Calcium 8.6 mg/dL (8.4-10.2); Carbon Dioxide 30 mmol/L (22-30); Chloride 102 mmol/L (98-107); Glucose 85 mg/dL (74-99); Potassium 3.6 mmol/L (3.5-5.1); Sodium 140 mmol/L (137-145)
[2018-03-26] MEDS: CITALOPRAM HYDROBROMIDE 20 MG TAB PO SCH (09:44)
[2018-03-26] MEDS: PANTOPRAZOLE 40 MG TABLET PO SCH (09:44)
[2018-03-26] MEDS: FUROSEMIDE 10 MG/ML 4 ML VIAL IV SCH (09:44)
[2018-03-26] MEDS: ASPIRIN 81 MG PO SCH (09:45)
[2018-03-26] MEDS: POTASSIUM CHLORIDE ER 20 MEQ TAB.ER PO SCH (09:45)
[2018-03-26] MEDS: LISINOPRIL 2.5 MG TAB PO SCH (09:45)
[2018-03-26] MEDS: IPRATROPIUM-ALBUTEROL 3 ML NEB INHALATION SCH ×4 (10:00→21:15)
--- NOTE | 2018-03-26 12:22 | P.PN ---
Subjective Progress Note Date: 03/26/18 This is a pleasant 77-year-old female past medical history significant for hypertension, paroxysmal SVT, aortic stenosis, mitral valve prolapse with mitral regurgitation, COPD, dyslipidemia and chronic nicotine dependence. She is to follow the office with Dr. Almendarez but has not followed since early 1999. If he has to see her in consultation secondary to exertional shortness of breath and heart failure. Echocardiogram has been obtained and reveals mild to moderately impaired left ventricular systolic function with ejection fraction 40-45%, mid anteroseptal, apical anterior and apical septal wall motion hypokinesia, moderately dilated left atrium, mild aortic valve sclerosis, moderate aortic stenosis with a mean gradient across the valve of 22 mmHg, mildly thickened mitral valve leaflets, mild mitral regurgitation, mild tricuspid regurgitation and mild pulmonary hypertension with an RVSP of 36 mmHg. She presented to the hospital 2 days ago with symptoms of increased shortness of breath with exertion. Chest x-ray obtained on admission reveals cardiomegaly and pulmonary fibrosis with no gross heart failure noted. She states that she was at home she was becoming significantly short of breath with exertion. She was unable to go from the bedroom to the bathroom without having to stop to take a breath. Initially since she sat down her breathing would greatly improve. However prior to coming in the shortness of breath had increased to at rest as well as with exertion. She felt as though she was having a very difficult time catching her breath and she was unable to lay flat in bed without feeling extremely short of breath. She also noticed increased swelling of her lower extremities. Since arrival she is started on IV Lasix and states she has been up and down to the bathroom multiple times and is feeling much better. Lower extremity has improved per the patient and his noted only be trace at this time. She states she can get up and use the restroom using her walker without feeling significantly short of breath. She denies symptoms of chest discomfort, dizziness or palpitations. She is seen and examined resting comfortably lying flat in bed in no acute distress. She also states she has lost approximately 30 pounds in the previous 6 weeks secondary to poor oral intake and having no appetite. Per the patient she has undergone cardiac catheterization in the past approximately 20 years ago and was told she has no blockages. Those records are unavailable to me at this time. EKG reveals sinus bradycardia heart rate of 54 with a first-degree AV block, inferior Q waves noted as well as evidence of old anterior wall myocardial infarction. CTA chest reveals no evidence of pulmonary embolism with cardiomegaly as well as moderate pleural effusions and bibasilar and a large hiatal hernia. Laboratory data reviewed, WBC 5.1, hemoglobin 9.1, platelets 261, sodium 140, potassium 3.7, magnesium 1.7, creatinine 0.75, GFR 78, cardiac enzymes negative 1, proBNP 3080. Most recent echocardiogram in 2017 reveals preserved left ventricular systolic function with ejection fraction 60-65%, mitral regurgitation and aortic stenosis with a mean of 17 mmHg. She underwent a dobutamine stress echocardiogram in 2012 that was negative for stress-induced ischemia. 03/26: Denies having any shortness of breath. She states she is trying to wean herself off oxygen. Pulse ox is 95% on room air. She anticipates ambulating in the hallway today. Weight is unchanged. Electrolytes are within normal limits, potassium 3.6, creatinine 0.71. Patient does not have any pedal edema. Heart rate is running in the 50s and 60s in a sinus rhythm. Atenolol will be changed to 50 mg twice daily and atorvastatin added. Plan is for patient to follow up with Dr. Bryant in 2 weeks for scheduling of outpatient heart catheterization. At the time of my exam: CONSTITUTIONAL: Denies fever. Denies chills. EYES: Denies blurred vision. Denies vision changes. Denies eye pain. EARS, NOSE, MOUTH & THROAT: Denies headache. Denies sore throat. Denies ear pain. CARDIOVASCULAR: Denies chest pain. Denies shortness of breath. Denies orthopnea. Denies PND. Denies palpitations. Denies pedal edema RESPIRATORY: Denies cough. GASTROINTESTINAL: Denies abdominal pain. Denies diarrhea. Denies constipation. Denies nausea. Denies vomiting. MUSCULOSKELETAL: Denies myalgias. INTEGUMENTARY: Denies pruitis. Denies rash. NEUROLOGIC: Denies numbness. Denies tingling. Denies weakness. PSYCHIATRIC: Denies anxiety. Denies depression. ENDOCRINE: Denies fatigue. Denies weight change. Denies polydipsia. Denies polyurina. GENITOURINARY: Denies burning, hematuria or urgency with micturation. HEMATOLOGIC: Denies history of anemia. Denies bleeding. Blood pressure 100/50 heart rate 52 afebrile maintaining oxygen saturation on room air GENERAL: This is a 77-year-old female in no apparent distress at the time of my examination. HEENT: Head is atraumatic, normocephalic. Pupils are equal, round. Sclerae anicteric. Conjunctivae are clear. Mucous membranes of the mouth are moist. Neck is supple. There is no jugular venous distention. No carotid bruit is heard. LUNGS: Clear to auscultation no wheezes, rales or rhonchi. No chest wall tenderness is noted on palpation or with deep breathing. Diminished bilaterally. HEART: Regular rate and rhythm with systolic ejection murmur at the base and the apex, no rubs or gallops. S1 and S2 heard. ABDOMEN: Soft, nontender. Bowel sounds are heard. No organomegaly noted. EXTREMITIES: Trace bilateral lower extremity edema. No calf tenderness noted. VASCULAR: Radial and dorsalis pedis pulses palpated, no evidence of clubbing. NEUROLOGIC: Patient is awake, alert and oriented x3. ASSESSMENT Acute systolic heart failure, new since echocardiogram obtained in 2017. Unknown if due to ischemic or nonischemic cardiomyopathy. Will require cardiac catheterization once hemodynamically stable. History of SVT in the past, has been on norpace for 20+ years. Hypertension Dyslipidemia Aortic stenosis, mean gradient 22 mmHg Mitral regurgitation COPD Recent anemia requiring transfusion Chronic nicotine dependence PLAN IV lasix will be changed to oral Lasix 40 mg daily. Discontinue norpace permanently. Continue atenolol which will be changed to 50 mg twice daily. Continue lisinopril. Once she is hemodynamically stable from a heart failure perspective, she will require cardiac catheterization to assess coronary arteries. Appointment with Dr. Bryant in 2 weeks for scheduling of heart catheterization. Smoking cessation recommended. Patient does not intend to quit smoking. New prescriptions have been sent to her pharmacy. Patient is cleared for discharge from cardiology standpoint. Thank you kindly for this consultation. Nurse Practitioner note has been reviewed, I agree with a documented findings and plan of care. Patient was seen and examined. Objective - Vital Signs Vital signs: Vital Signs Temp 97.8 F 03/26/18 09:57 Pulse 57 L 03/26/18 09:59 Resp 16 03/26/18 09:57 BP 100/50 03/26/18 09:57 Pulse Ox 95 03/26/18 09:57 Intake & Output 03/25/18 03/26/18 03/26/18 18:59 06:59 18:59 Intake Total 840 240 Balance 840 240 Weight 77 kg Intake: Oral 840 240 Other: # Voids 4 1 - Labs CBC & Chem 7: 03/25/18 06:43 03/26/18 07:35
[2018-03-26] MEDS: MULTIVITAMINS, THERA 1 EACH TAB PO SCH (12:24)
[2018-03-26] MEDS: HEPARIN SODIUM,PORCINE 5,000 UNIT/ML 1 ML VIAL SQ SCH ×2 (12:24→23:34)
[2018-03-26] MEDS: FERROUS SULFATE 325 MG TAB PO SCH (12:24)
[2018-03-26 20:33] VITALS: RESP 16
[2018-03-26] MEDS: ATENOLOL 50 MG TAB PO SCH (20:35)
[2018-03-26] MEDS: LATANOPROST 0.005% OPHTH DROPS 2.5 ML BTL BOTH EYES SCH (20:36)
[2018-03-26] MEDS: ZOLPIDEM 10 MG TAB PO SCH (23:34)
[2018-03-26] MEDS: ALPRAZolam 1 MG TAB PO SCH (23:34)
[2018-03-27] MEDS: IPRATROPIUM-ALBUTEROL 3 ML NEB INHALATION SCH ×4 (08:25→20:42)
[2018-03-27] MEDS: PANTOPRAZOLE 40 MG TABLET PO SCH (08:44)
[2018-03-27] MEDS: FERROUS SULFATE 325 MG TAB PO SCH (08:44)
[2018-03-27] MEDS: ASPIRIN 81 MG PO SCH (08:44)
[2018-03-27] MEDS: oxyCODONE-APAP 10-325MG 1 EACH TAB PO PRN ×3 (08:44→21:25)
[2018-03-27] MEDS: LISINOPRIL 2.5 MG TAB PO SCH (08:44)
[2018-03-27] MEDS: POTASSIUM CHLORIDE ER 20 MEQ TAB.ER PO SCH (08:45)
[2018-03-27] MEDS: CITALOPRAM HYDROBROMIDE 20 MG TAB PO SCH (08:45)
[2018-03-27] MEDS: LEVOTHYROXINE 50 MCG TAB PO SCH (08:46)
[2018-03-27] MEDS: ATENOLOL 50 MG TAB PO SCH ×2 (08:46→21:26)
[2018-03-27] MEDS ORDERED: FUROSEMIDE 40 MG TAB PO SCH (09:00)
--- NOTE | 2018-03-27 11:10 | P.PN ---
Subjective This is a pleasant 77-year-old female past medical history significant for hypertension, paroxysmal SVT, aortic stenosis, mitral valve prolapse with mitral regurgitation, COPD, dyslipidemia and chronic nicotine dependence. She is to follow the office with Dr. Almendarez but has not followed since early 1999. If he has to see her in consultation secondary to exertional shortness of breath and heart failure. Echocardiogram has been obtained and reveals mild to moderately impaired left ventricular systolic function with ejection fraction 40-45%, mid anteroseptal, apical anterior and apical septal wall motion hypokinesia, moderately dilated left atrium, mild aortic valve sclerosis, moderate aortic stenosis with a mean gradient across the valve of 22 mmHg, mildly thickened mitral valve leaflets, mild mitral regurgitation, mild tricuspid regurgitation and mild pulmonary hypertension with an RVSP of 36 mmHg. She is seen and examined laying flat in bed in no acute distress. She states she generally feels ongoing weakness and is concerned about her ability to get around independently at home. She denies chest pain, shortness of breath , dizziness or palpitations. Blood pressure 113/60 heart rate 59 afebrile maintaining oxygen saturation on room air. currently maintained on aspirin 81 mg daily, atenolol 50 mg twice a day, Lasix 40 mg daily, lisinopril 2.5 mg daily. GENERAL: This is a 77-year-old female in no apparent distress at the time of my examination. HEENT: Head is atraumatic, normocephalic. Pupils are equal, round. Sclerae anicteric. Conjunctivae are clear. Mucous membranes of the mouth are moist. Neck is supple. There is no jugular venous distention. No carotid bruit is heard. LUNGS: Clear to auscultation no wheezes, rales or rhonchi. No chest wall tenderness is noted on palpation or with deep breathing. Diminished bilaterally. HEART: Regular rate and rhythm with systolic ejection murmur at the base and the apex, no rubs or gallops. S1 and S2 heard. EXTREMITIES: Trace bilateral lower extremity edema. No calf tenderness noted. ASSESSMENT Acute systolic heart failure, new since echocardiogram obtained in 2016. Unknown if due to ischemic or nonischemic cardiomyopathy. Will require cardiac catheterization once hemodynamically stable. History of SVT in the past, has been on norpace for 20+ years. Hypertension Dyslipidemia Aortic stenosis, mean gradient 22 mmHg Mitral regurgitation COPD Recent anemia requiring transfusion Chronic nicotine dependence PLAN Continue current medical regimen. Patient is stable from a cardiac perspective. Follow-up with Dr. Bryant as an outpatient for outpatient elective cardiac catheterization once anemia and fluid overload has completely stabilized. Nurse Practitioner note has been reviewed, I agree with a documented findings and plan of care. Patient was seen and examined. Objective - Vital Signs Vital signs: Vital Signs Temp 98.2 F 03/27/18 08:55 Pulse 59 L 03/27/18 08:55 Resp 16 03/27/18 08:55 BP 113/60 03/27/18 08:55 Pulse Ox 96 03/27/18 08:55 Intake & Output 03/26/18 03/27/18 03/27/18 18:59 06:59 18:59 Intake Total 720 240 Balance 720 240 Weight 84.4 kg Intake: Oral 720 240 - Labs CBC & Chem 7: 03/25/18 06:43 03/26/18 07:35
[2018-03-27] MEDS ORDERED: ALPRAZolam 0.25 MG TAB PO PRN (13:56)
[2018-03-27] MEDS: busPIRone HCl 10 MG TAB PO SCH ×2 (14:08→21:25)
[2018-03-27] MEDS: MULTIVITAMINS, THERA 1 EACH TAB PO SCH (14:09)
[2018-03-27] MEDS: HEPARIN SODIUM,PORCINE 5,000 UNIT/ML 1 ML VIAL SQ SCH (14:09)
[2018-03-27] MEDS ORDERED: traZODone HCL 100 MG TAB PO SCH (21:00)
[2018-03-27] MEDS: LATANOPROST 0.005% OPHTH DROPS 2.5 ML BTL BOTH EYES SCH (21:25)
--- NOTE | 2018-03-27 23:24 | P.PN ---
Subjective Progress Note Date: 03/27/18 shelly is a pleasant 77-year-old female past medical history significant for hypertension, paroxysmal SVT, aortic stenosis, mitral valve prolapse with mitral regurgitation, COPD, dyslipidemia and chronic nicotine dependence. She is to follow the office with Dr. Almendarez but has not followed since early 1999. If he has to see her in consultation secondary to exertional shortness of breath and heart failure. Echocardiogram has been obtained and reveals mild to moderately impaired left ventricular systolic function with ejection fraction 40-45%, mid anteroseptal, apical anterior and apical septal wall motion hypokinesia, moderately dilated left atrium, mild aortic valve sclerosis , moderate aortic stenosis with a mean gradient across the valve of 22 mmHg, mildly thickened mitral valve leaflets, mild mitral regurgitation, mild tricuspid regurgitation and mild pulmonary hypertension with an RVSP of 36 mmHg. She presented to the hospital 2 days ago with symptoms of increased shortness of breath with exertion. Chest x-ray obtained on admission reveals cardiomegaly and pulmonary fibrosis with no gross heart failure noted. She states that she was at home she was becoming significantly short of breath with exertion. She was unable to go from the bedroom to the bathroom without having to stop to take a breath. Initially since she sat down her breathing would greatly improve. However prior to coming in the shortness of breath had increased to at rest as well as with exertion. She felt as though she was having a very difficult time catching her breath and she was unable to lay flat in bed without feeling extremely short of breath. She also noticed increased swelling of her lower extremities. Since arrival she is started on IV Lasix and states she has been up and down to the bathroom multiple times and is feeling much better. Lower extremity has improved per the patient and his noted only be trace at this time. She states she can get up and use the restroom using her walker without feeling significantly short of breath. She denies symptoms of chest discomfort, dizziness or palpitations. She is seen and examined resting comfortably lying flat in bed in no acute distress. She also states she has lost approximately 30 pounds in the previous 6 weeks secondary to poor oral intake and having no appetite. Per the patient she has undergone cardiac catheterization in the past approximately 20 years ago and was told she has no blockages. Those records are unavailable to me at this time. EKG reveals sinus bradycardia heart rate of 54 with a first-degree AV block, inferior Q waves noted as well as evidence of old anterior wall myocardial infarction. CTA chest reveals no evidence of pulmonary embolism with cardiomegaly as well as moderate pleural effusions and bibasilar and a large hiatal hernia. Laboratory data reviewed, WBC 5.1, hemoglobin 9.1, platelets 261, sodium 140, potassium 3.7, magnesium 1.7, creatinine 0.75, GFR 78, cardiac enzymes negative 1, proBNP 3080. Most recent echocardiogram in 2017 reveals preserved left ventricular systolic function with ejection fraction 60-65%, mitral regurgitation and aortic stenosis with a mean of 17 mmHg. She underwent a dobutamine stress echocardiogram in 2012 that was negative for stress-induced ischemia. 03/26: Denies having any shortness of breath. She states she is trying to wean herself off oxygen. Pulse ox is 95% on room air. She anticipates ambulating in the hallway today. Weight is unchanged. Electrolytes are within normal limits, potassium 3.6, creatinine 0.71. Patient does not have any pedal edema. Heart rate is running in the 50s and 60s in a sinus rhythm. Atenolol will be changed to 50 mg twice daily and atorvastatin added. Plan is for patient to follow up with Dr. Bryant in 2 weeks for scheduling of outpatient heart catheterization 03/27 patient request stay as she has a hard take getting both xanax 2 hs hs and ambien 10 mg hs as rx OP, she wants to be transitioned to a safer profile for sleep medication, trazodone 100 mg hs initally started tonight will decrease xanax to 0.25 mg tid prn, saart buspar 10 mg bid for anxiety. we will keep patient another night to allow safe transition to this medication,s se profile discussed along with drug prescription safety as per nursing staff, her atenolol has been held for the past 2 days, heart rate has been between 55, but systolic pressure ranges between 87-96 today, lisinopril 2.5 will be held secondary to low BP we are going to decrease atenolol to 12.5 mg every morning to be started tomorrow. TSH to be obtained Objective - Vital Signs Vital signs: Vital Signs Temp 98.2 F 03/27/18 08:55 Pulse 68 03/27/18 13:12 Resp 16 03/27/18 08:55 BP 113/60 03/27/18 08:55 Pulse Ox 96 03/27/18 08:55 Intake & Output 03/26/18 03/27/18 03/27/18 18:59 06:59 18:59 Intake Total 720 480 Balance 720 480 Weight 84.4 kg Intake: Oral 720 480 - Constitutional General appearance: Present: cooperative, no acute distress - EENT Eyes: Present: anicteric sclerae, EOMI, PERRLA, dentition normal ENT: Present: normal oropharynx - Neck Neck: Present: normal ROM. Absent: lymphadenopathy, other, rigidity, stridor, thyromegaly Thyroid: bilateral: normal size - Respiratory Respiratory: bilateral: CTA, negative: diminished, dullness, rales - Cardiovascular Rhythm: regular Heart sounds: normal: S1, S2 Abnormal Heart Sounds: Absent: systolic murmur, diastolic murmur, rub, S3 Gallop , S4 Gallop, click, other - Gastrointestinal General gastrointestinal: Present: normal bowel sounds, soft - Integumentary Integumentary: Present: decreased turgor, normal - Musculoskeletal Musculoskeletal: Present: gait normal, strength equal bilaterally - Psychiatric Psychiatric: Present: A&O x's 3. Absent: appropriate affect, intact judgment & insight - Labs CBC & Chem 7: 03/25/18 06:43 03/26/18 07:35 Assessment and Plan Plan: Acute hypoxic respiratory failure due acute diastolic heart failure rule out broken heart syndrome. Continue with lasix 40 mg IVP Q 12 hours and Nebulized treatment Duoneb 3 ml inhalation QID and O2 support ,we will continue with daily weight and monitor BMP and Magnesium. Consult cardiology. Echocardiogram report pending. 2. Acute anemia with history of anemia of chronic disease. No signs of bleeding. S/P 4 units of PRBCs and Ferrlicit infusion. 3. History of C.Difficile colitis status post fecal transplant at [facility]. Monitor closely. Avoid antibiotics. 4. History of SVT. Stable, Norpace 150 mg twice a day. 5. Hypertension and hypertensive cardiovascular disease. Continue Norpace. 6. GERD. Continue Protonix 40 mg IV twice daily 7. Rheumatoid arthritis. Stable. 8. Hypothyroidism. Continue levothyroxine 50 MCG daily 9. Generalized anxiety disorder. Continue Xanax 2 mg every hs. 10. generalized anziety and chronic sleep disorder/ insomnia, benzo chronic use. patient will be transitioned off ambien as per Beer's criteria, will use buspar 10 bid for aniety and xanax 0.25 tid prn, will monitor for benzo withdrawals. 10. DVT prophylaxis. SCDs and TIMOTEO roberts discharge planning: home in am
[2018-03-28] MEDS: HEPARIN SODIUM,PORCINE 5,000 UNIT/ML 1 ML VIAL SQ SCH ×3 (00:36→13:14)
[2018-03-28 01:31] LABS: Anisocytosis Moderate; Basophils % (A) 1 %; Eosinophils # (A) 0.2 k/uL (0-0.7); Eosinophils % (A) 4 %; HCT 32.8 % (34.0-46.0); HGB 9.6 gm/dL (11.4-16.0); Hypochromasia Marked; Lymphocytes # (A) 1.1 k/uL (1.0-4.8); Lymphocytes % (A) 28 %; MCH 25.7 pg (25.0-35.0); MCHC 29.2 g/dL (31.0-37.0); MCV 88.1 fL (80.0-100.0); Mean Platelet Volume 6.9; Monocytes # (A) 0.3 k/uL (0-1.0); Monocytes % (A) 6 %; Neutrophils # (A) 2.4 k/uL (1.3-7.7); Neutrophils % (A) 60 %; Platelet Count 283 k/uL (150-450); Poikilocytosis Moderate; RBC 3.72 m/uL (3.80-5.40); RDW 20.3 % (11.5-15.5)
[2018-03-28 01:40] LABS: ALT 19 U/L (9-52); AST 25 U/L (14-36); Albumin 3.1 g/dL (3.5-5.0); Alkaline Phosphatase 68 U/L (38-126); Anion Gap 10 mmol/L; Blood Urea Nitrogen 10 mg/dL (7-17); Calcium 8.4 mg/dL (8.4-10.2); Carbon Dioxide 26 mmol/L (22-30); Chloride 100 mmol/L (98-107); Glucose 118 mg/dL (74-99); Potassium 3.8 mmol/L (3.5-5.1); Sodium 136 mmol/L (137-145); Total Bilirubin 0.2 mg/dL (0.2-1.3); Total Protein 5.7 g/dL (6.3-8.2)
[2018-03-28 07:18] LABS: T4, Free (Free Thyroxine) 1.29 ng/dL (0.78-2.19)
[2018-03-28] MEDS: IPRATROPIUM-ALBUTEROL 3 ML NEB INHALATION SCH ×2 (08:24→11:48)
[2018-03-28] MEDS: POTASSIUM CHLORIDE ER 20 MEQ TAB.ER PO SCH (08:34)
[2018-03-28] MEDS: ASPIRIN 81 MG PO SCH (08:35)
[2018-03-28] MEDS: LEVOTHYROXINE 50 MCG TAB PO SCH (08:35)
[2018-03-28] MEDS: oxyCODONE-APAP 10-325MG 1 EACH TAB PO PRN (08:35)
[2018-03-28] MEDS: CITALOPRAM HYDROBROMIDE 20 MG TAB PO SCH (08:35)
[2018-03-28] MEDS: PANTOPRAZOLE 40 MG TABLET PO SCH (08:35)
[2018-03-28] MEDS: busPIRone HCl 10 MG TAB PO SCH (08:36)
[2018-03-28 08:42] VITALS: BP 130/61; TEMP 98.2
[2018-03-28] MEDS ORDERED: ATENOLOL 12.5 MG TAB PO SCH (09:00)
[2018-03-28] MEDS ORDERED: FUROSEMIDE 20 MG TAB PO SCH (09:00)
[2018-03-28 12:03] VITALS: PULSE 64
[2018-03-28] MEDS: FERROUS SULFATE 325 MG TAB PO SCH (13:14)
[2018-03-28] MEDS: MULTIVITAMINS, THERA 1 EACH TAB PO SCH (13:14)
[2018-03-29] MEDS ORDERED: LEVOTHYROXINE 75 MCG TAB PO SCH (06:30)
--- NOTE | 2018-03-30 08:58 | P.DS ---
Providers Date of admission: 03/24/18 03:09 Expected date of discharge: 03/28/18 Attending physician: Shirley Wienberg Consults: 03/25/18 10:44 Consult Physician Routine Consulting Provider: Adria Angela Consult Reason/Comments: heart failure Do you want consulting provider notified?: Yes Primary care physician: Shirley Weinberg [facility] Course: This is a 77-year-old female one of Dr. Marino's patients, she has a past medical history of hypertension, hypertensive cardiovascular disease , mitral valve prolapse, supraventricular tachycardia, rheumatoid arthritis, GERD, COPD, and recurrent C. diff colitis. 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 diff at [facility]. The patient had a recent hospitalization in January which time she presented to the hospital with hemoglobin of 4.8. She was seen in consultation by GI and patient was to have follow-up in their office with plan for iron transfusions. Patient states she has follow-up with Dr. Ortiz and was told that no more return visits were necessary at this point as she had no diarrhea and no C. diff was evident. Patient states she has had trouble following up with her physicians because her daughter had a nervous breakdown recently. Patient states she has had shortness of breath and feeling sleepy all the time for the past 2 weeks. She denies any tarry or bloody stools, no diarrhea, no fever no chills, no abdominal pain, no cough. Patient presented with hemoglobin of 5.2 and repeat was 4.4. Patient did receive a total of 4 Packed red blood cells and iron infusion and was just discharged ,went home and developed to have severe respiratory distress was placed on BIPAP and was transferred back to [facility] were she was found to have acute pulmonary edema and did receive 2 doses of lasix and was taken off her BIPAP and she was feeling better, then she was aggressively diuresed using IV Lasix for the next 2 days and after that she was sent home patient went and saw Dr. Espinoza in the office and she was scheduled to go for an IV iron infusion was done yesterday and she was scheduled for another IV infusion for next Wednesday patient went back home and she suddenly developed to have a significant shortness of breath associated with orthopnea and PND she ended up calling EMS and the patient was brought into the ER she was placed on a BiPAP again and she was in acute respiratory failure patient was given Lasix and she was admitted to the hospital for cardiology evaluation, echocardiogram was obtained to check the LV function rule out broken heart syndrome as the patient has been under a lot of stress over the last few months. 03/25: We will add in consult with cardiology for heart failure. Echocardiogram report is still pending. Patient states that her breathing is improved. She is concerned about having a diagnosis of heart failure. We will continue IV Lasix at 40 mg every 12 hours. No weight loss. Hemoglobin 9.1, creatinine 0.75, electrolytes are within normal limits. 03/26: Denies having any shortness of breath. She states she is trying to wean herself off oxygen. Pulse ox is 95% on room air. She anticipates ambulating in the hallway today. Weight is unchanged. Electrolytes are within normal limits, potassium 3.6, creatinine 0.71. Patient does not have any pedal edema. Heart rate is running in the 50s and 60s in a sinus rhythm. Atenolol will be changed to 50 mg twice daily and atorvastatin added. Plan is for patient to follow up with Dr. Bryant in 2 weeks for scheduling of outpatient heart catheterization 03/27 patient request stay as she has a hard take getting both xanax 2 hs hs and ambien 10 mg hs as rx OP, she wants to be transitioned to a safer profile for sleep medication, trazodone 100 mg hs initally started tonight will decrease xanax to 0.25 mg tid prn, saart buspar 10 mg bid for anxiety. we will keep patient another night to allow safe transition to this medication,s se profile discussed along with drug prescription safety as per nursing staff, her atenolol has been held for the past 2 days, heart rate has been between 55, but systolic pressure ranges between 87-96 today, lisinopril 2.5 will be held secondary to low BP we are going to decrease atenolol to 12.5 mg every morning to be started tomorrow. TSH to be obtained 03/28: TSH came back at 7.940 and levothyroxine will be increased to 75 g daily. Patient states she could not sleep last night. Patient has been started on a number of new medications during this hospitalization. She is plan for follow-up with Dr. Bryant in the office for anticipated a heart catheterization. Hemoglobin 9.6, creatinine 0.7. Patient has been afebrile, blood pressure 130/61, pulse ox 97% on room air. Heart rate running in the 60s. Patient will be discharged home today in stable condition. Discharge diagnoses: 1. Acute hypoxic respiratory failure due acute diastolic heart failure with cardiomyopathy, unknown if ischemic or nonischemic. 2. Acute anemia with history of anemia of chronic disease. No blood loss anemia. 3. History of C.Difficile colitis status post fecal transplant at [facility]. 4. History of SVT. 5. Hypertension and hypertensive cardiovascular disease. 6. GERD. 7. Rheumatoid arthritis. Stable. 8. Hypothyroidism. 9. Generalized anxiety disorder. 10. Chronic sleep disorder/ insomnia Discharge plan: Home Impression and plan of care have been directed as dictated by the signing physician. Domenica Reed nurse practitioner acting as scribe for signing physician. Patient Condition at Discharge: Good Plan - Discharge Summary Discharge Rx Participant: No New Discharge Prescriptions: New Lisinopril [Zestril] 2.5 mg PO DAILY #60 tab ALPRAZolam [Xanax] 0.25 mg PO TID PRN #21 tab PRN Reason: Anxiety Atenolol [Tenormin] 12.5 mg PO DAILY #30 tab busPIRone HCl [Buspar] 10 mg PO BID #60 tab Furosemide [Lasix] 20 mg PO DAILY #30 tab Levothyroxine Sodium [Synthroid] 75 mcg PO DAILY@0630 #30 tab Potassium Chloride ER [K-Dur 10] 10 meq PO DAILY #30 tab traZODone HCL [Desyrel] 150 mg PO HS #45 tab Continue Aspirin 81 mg PO QAM Multivit-Min/Iron/Folic/Lutein [Centrum Silver Women Tablet] 1 tab PO DAILY Ferrous Sulfate [Feosol] 325 mg PO DAILY #30 tab Esomeprazole Magnesium [NexIUM] 40 mg PO DAILY Latanoprost [Xalatan 0.005%] 1 drop BOTH EYES HS Albuterol Inhaler [Ventolin Hfa Inhaler] 2 puff INHALATION RT-QID PRN PRN Reason: Shortness Of Breath oxyCODONE-APAP 10-325MG [Percocet 10-325 mg] 1 tab PO Q6HR PRN PRN Reason: Pain Control Benzonatate [Tessalon Perles] 100 mg PO TID PRN #30 capsule PRN Reason: Cough Ipratropium-Albuterol Nebulize [Duoneb 0.5 mg-3 mg/3 ml Soln] 3 ml INHALATION RT-QID Changed Citalopram Hydrobromide [CeleXA] 20 mg PO DAILY #0 Discontinued Levothyroxine Sodium [Synthroid] 50 mcg PO QAM Atenolol 100 mg PO HS ALPRAZolam [Xanax] 2 mg PO HS Zolpidem [Ambien] 10 mg PO HS Disopyramide Phosphate [Norpace Cr] 150 mg PO BID Discharge Medication List Aspirin 81 mg PO QAM 07/29/14 [History] Multivit-Min/Iron/Folic/Lutein [Centrum Silver Women Tablet] 1 tab PO DAILY [History] Ferrous Sulfate [Feosol] 325 mg PO DAILY #30 tab 01/17/18 [Rx] Albuterol Inhaler [Ventolin Hfa Inhaler] 2 puff INHALATION RT-QID PRN 03/15/18 [ History] Esomeprazole Magnesium [NexIUM] 40 mg PO DAILY 03/15/18 [History] Latanoprost [Xalatan 0.005%] 1 drop BOTH EYES HS 03/15/18 [History] oxyCODONE-APAP 10-325MG [Percocet 10-325 mg] 1 tab PO Q6HR PRN 03/18/18 [History ] Benzonatate [Tessalon Perles] 100 mg PO TID PRN #30 capsule 03/21/18 [Rx] Ipratropium-Albuterol Nebulize [Duoneb 0.5 mg-3 mg/3 ml Soln] 3 ml INHALATION RT -QID 03/23/18 [History] Lisinopril [Zestril] 2.5 mg PO DAILY #60 tab 03/26/18 [Rx] ALPRAZolam [Xanax] 0.25 mg PO TID PRN #21 tab 03/28/18 [Rx] Atenolol [Tenormin] 12.5 mg PO DAILY #30 tab 03/28/18 [Rx] Citalopram Hydrobromide [CeleXA] 20 mg PO DAILY #0 12/17/18 [Rx] Furosemide [Lasix] 20 mg PO DAILY #30 tab 03/28/18 [Rx] Levothyroxine Sodium [Synthroid] 75 mcg PO DAILY@0630 #30 tab 03/28/18 [Rx] Potassium Chloride ER [K-Dur 10] 10 meq PO DAILY #30 tab 03/28/18 [Rx] busPIRone HCl [Buspar] 10 mg PO BID #60 tab 03/28/18 [Rx] traZODone HCL [Desyrel] 150 mg PO HS #45 tab 03/28/18 [Rx] Follow up Appointment(s)/Referral(s): Nuzhat Bryant MD [STAFF PHYSICIAN] - 2 Weeks (please call office) [facility], [NON-STAFF] - As Needed Franklyn Marino DO [STAFF PHYSICIAN] - 1 Week (office will with appointment time) Patient Instructions/Handouts: Chronic Respiratory Failure (DC) Activity/Diet/Wound Care/Special Instructions: Hold Lisinopril for Systolic BP <100 Discharge Disposition: HOME WITH HOME HEALTH SERVICES
== END 2018-03-28 14:21 | disposition home health service (06) | DRG 291 ==
LOC: EC 22:11 → 4SSUR 03-24 03:09
PROVIDERS: ADMIT Internal Medicine; ATTEND Internal Medicine
PROC: 5A09357 Assistance with Respiratory Ventilation, Less than 24 Consecutive Hours, Continuous Positive Airway Pressure (ICD-10-PCS; principal; 2018-03-24)
DX: I11.0 Hypertensive heart disease with heart failure (principal); I50.21 Acute systolic (congestive) heart failure; J96.01 Acute respiratory failure with hypoxia; I47.1 Supraventricular tachycardia; I27.20 Pulmonary hypertension, unspecified; J44.9 Chronic obstructive pulmonary disease, unspecified; J84.10 Pulmonary fibrosis, unspecified; I08.3 Combined rheumatic disorders of mitral, aortic and tricuspid valves; D63.8 Anemia in other chronic diseases classified elsewhere; I48.91 Unspecified atrial fibrillation; I42.9 Cardiomyopathy, unspecified; M06.9 Rheumatoid arthritis, unspecified; R00.1 Bradycardia, unspecified; F32.9 Major depressive disorder, single episode, unspecified; E03.9 Hypothyroidism, unspecified; G47.00 Insomnia, unspecified; E78.5 Hyperlipidemia, unspecified; F17.200 Nicotine dependence, unspecified, uncomplicated; F41.1 Generalized anxiety disorder; I25.2 Old myocardial infarction; I44.0 Atrioventricular block, first degree; K21.9 Gastro-esophageal reflux disease without esophagitis; R32 Unspecified urinary incontinence; F51.04 Psychophysiologic insomnia; Z79.82 Long term (current) use of aspirin; Z79.890 Hormone replacement therapy; Z79.899 Other long term (current) drug therapy; Z96.653 Presence of artificial knee joint, bilateral; Z96.611 Presence of right artificial shoulder joint; Z96.642 Presence of left artificial hip joint; Z98.42 Cataract extraction status, left eye; Z98.41 Cataract extraction status, right eye; Z96.1 Presence of intraocular lens; Z90.710 Acquired absence of both cervix and uterus; Z86.19 Personal history of other infectious and parasitic diseases; Z90.49 Acquired absence of other specified parts of digestive tract; Z88.1 Allergy status to other antibiotic agents; Z88.2 Allergy status to sulfonamides; Z88.7 Allergy status to serum and vaccine; Z88.8 Allergy status to other drugs, medicaments and biological substances; Z71.6 Tobacco abuse counseling; Z82.5 Family history of asthma and other chronic lower respiratory diseases; Z82.49 Family history of ischemic heart disease and other diseases of the circulatory system; Z82.3 Family history of stroke; Z80.1 Family history of malignant neoplasm of trachea, bronchus and lung
CPT/HCPCS: 36415; 71045; 71275; 80048; 80053; 82550; 82553; 83735; 83880; 84439; 84443; 84484; 85025; 85610; 85730; 86850; 86870; 86880; 86900; 86901; 86902; 93306; 94640; 94660; 96374; 96375; 99285

== ENCOUNTER 2018-05-12 12:37 | Inpatient (IN) | payer MEDICARE ==
--- NOTE | 2018-05-12 13:36 | ED ---
General Adult HPI - General Chief complaint: Recheck/Abnormal Lab/Rx Stated complaint: needs blood transfusion Time Seen by Provider: 05/12/18 12:58 Source: patient, RN notes reviewed, old records reviewed Mode of arrival: wheelchair Limitations: no limitations - History of Present Illness Initial comments: 71 sexual female presenting for evaluation of anemia. Patient has been dealing with chronic anemia and been receiving blood transfusions through the infusion center. She had outpatient laboratory testing yesterday that reveal hemoglobin 6.1, she is scheduled for 2 units packed RBCs and transfuse today. The infusion center was unable to obtain IV access as well as an issue with the patient's antibodies. Patient has no complaints, no anticoagulation, no history of melena or rectal bleeding. She reports some mild dyspnea, no lightheadedness, she is asymptomatic at the time my evaluation. - Related Data Home Medications Medication Instructions Recorded Confirmed Aspirin 81 mg PO QAM 07/29/14 05/12/18 Ipratropium-Albuterol Nebulize 3 ml INHALATION RT-QID 03/23/18 05/12/18 [Duoneb 0.5 mg-3 mg/3 ml Soln] Citalopram Hydrobromide [CeleXA] 40 mg PO DAILY 05/12/18 05/12/18 Furosemide [Lasix] 40 mg PO DAILY 05/12/18 05/12/18 oxyCODONE-APAP 7.5-325MG [Percocet 1 tab PO TID PRN 05/12/18 05/12/18 7.5-325 mg] Previous Rx's Medication Instructions Recorded Lisinopril [Zestril] 2.5 mg PO DAILY #60 tab 03/26/18 ALPRAZolam [Xanax] 0.25 mg PO TID PRN #21 tab 03/28/18 Atenolol [Tenormin] 12.5 mg PO DAILY #30 tab 03/28/18 Levothyroxine Sodium [Synthroid] 75 mcg PO DAILY@0630 #30 tab 03/28/18 Potassium Chloride ER [K-Dur 10] 10 meq PO DAILY #30 tab 03/28/18 busPIRone HCl [Buspar] 10 mg PO BID #60 tab 03/28/18 Allergies Allergy/AdvReac Type Severity Reaction Status Date / Time adhesive tape Allergy Rash/Hives Verified 05/12/18 14:26 Influenza Virus Vaccines Allergy "MAKES HER Verified 05/12/18 14:26 FEEL SICK" Sulfa (Sulfonamide Allergy Rash/Hives Verified 05/12/18 14:26 Antibiotics) amoxicillin trihydrate AdvReac Diarrhea Verified 05/12/18 14:26 [From Augmentin] ciprofloxacin [From Cipro] AdvReac Unknown Verified 05/12/18 14:26 metronidazole [From Flagyl] AdvReac Unknown Verified 05/12/18 14:26 potassium clavulanate AdvReac Diarrhea Verified 05/12/18 14:26 [From Augmentin] quinidine AdvReac BLOOD CLOTS Verified 05/12/18 14:26 Review of Systems ROS Statement: Those systems with pertinent positive or pertinent negative responses have been documented in the HPI. ROS Other: All systems not noted in ROS Statement are negative. Past Medical History Past Medical History: Atrial Fibrillation, Atrial Flutter, GERD/Reflux, Hyperlipidemia, Hypertension, Mitral Valve Prolapse (MVP), Rheumatoid Arthritis (RA), Thyroid Disorder Additional Past Medical History / Comment(s): OTHER HX: 03/06/14, 03/30/14, , 07/29/14 with CDIFF colitis, HYPOTHYROID, MVP, urinary incontinence, PROLAPSED MITRAL VALVE- NO PROBLEMS FOR 30 YRS. History of Any Multi-Drug Resistant Organisms: C-DIFF Date of last positivie culture/infection: 11/29/2017 per pt MDRO Source:: none Past Surgical History: Adenoidectomy, Cholecystectomy, Hysterectomy, Joint Replacement, Orthopedic Surgery, Tonsillectomy Additional Past Surgical History / Comment(s): 02/18/16 total R hip arthroplasty. Other surgical HX: BILATERAL KNEE REPLACEMENT (2003-RIGHT & 2005 - LEFT); LOWER LUMBAR LAMINECTOMYL4-L5 (2007); LEFT HIP REPLACEMENT (2012) ; RIGHT SHOULDER REPLACEMENT (2008), left total knee arthroplasty revision. Bilateral cataracts with lens implants. FECALCAL TRASPLANT TX FOR C-DIFF three times. Past Anesthesia/Blood Transfusion Reactions: No Reported Reaction Additional Past Anesthesia/Blood Transfusion Reaction / Comment(s): blood transfusion in past no reactions Past Psychological History: Anxiety, Depression Smoking Status: Current every day smoker Past Alcohol Use History: None Reported Past Drug Use History: None Reported - Past Family History Mother Family Medical History: Cancer Additional Family Medical History / Comment(s): Mother at age 60 with history of emphysema and lung cancer. Father Family Medical History: CVA/TIA Additional Family Medical History / Comment(s): Father at age 74 with problems with his larynx. Sister(s) Family Medical History: Unable to Obtain Daughter(s) Family Medical History: COPD, Myocardial Infarction ([place]) Additional Family Medical History / Comment(s): Mother at age 60 yrs of emphysema/lung CA Son(s) Family Medical History: Myocardial Infarction ([place]) Additional Family Medical History / Comment(s): Father at age 74yrs with "CVA of his larynx" General Exam Limitations: no limitations General appearance: alert, in no apparent distress Head exam: Present: atraumatic, normocephalic Eye exam: Present: normal appearance, PERRL ENT exam: Present: normal exam. Absent: normal oropharynx, mucous membranes dry Neck exam: Present: normal inspection. Absent: tenderness, meningismus Respiratory exam: Present: normal lung sounds bilaterally. Absent: respiratory distress, wheezes Cardiovascular Exam: Present: regular rate, normal rhythm, systolic murmur GI/Abdominal exam: Present: soft. Absent: distended, tenderness, guarding Extremities exam: Present: normal inspection, normal capillary refill. Absent: pedal edema Neurological exam: Present: alert, oriented X3, CN II-XII intact. Absent: motor sensory deficit Psychiatric exam: Present: normal affect, normal mood Skin exam: Present: warm, dry, intact. Absent: cyanosis, diaphoretic Course Vital Signs 05/12/18 05/12/18 12:48 14:21 Temperature 98.2 F Pulse Rate 101 H 76 Respiratory 16 18 Rate Blood Pressure 94/59 90/61 O2 Sat by Pulse 96 100 Oximetry Medical Decision Making - Medical Decision Making 77 -year-old female presents for evaluation of anemia. Patient has chronic anemia. She had outpatient laboratory testing yesterday which showed hemogram 6.1, she was scheduled for 2 units transfused at the infusion center. IV access was attempted but failed. She was sent to the ER for evaluation treatment. Hemoglobin emergency department today is 5.9. 2 units have been ordered and are pending. Patient does have significant antibodies and there will be a in the laboratory of packed RBCs. She will be placed in observation awaiting transfusion. Case is discussed with Dr. Snell, will accept admission. - Lab Data Result diagrams: 05/12/18 13:25 05/12/18 13:25 Lab Results 05/12/18 05/12/18 05/12/18 Range/Units 13:25 13:25 13:25 WBC 7.7 (3.8-10.6) k/uL RBC 2.48 L (3.80-5.40) m/uL Hgb 5.9 L* (11.4-16.0) gm/dL Hct 19.4 L* (34.0-46.0) % MCV 78.3 L (80.0-100.0) fL MCH 23.9 L (25.0-35.0) pg MCHC 30.6 L (31.0-37.0) g/dL RDW 18.5 H (11.5-15.5) % Plt Count 330 (150-450) k/uL PT (9.0-12.0) sec INR (<1.2) APTT (22.0-30.0) sec Sodium 138 (137-145) mmol/L Potassium 3.5 (3.5-5.1) mmol/L Chloride 107 (98-107) mmol/L Carbon Dioxide 22 (22-30) mmol/L Anion Gap 9 mmol/L BUN 19 H (7-17) mg/dL Creatinine 1.11 H (0.52-1.04) mg/dL Est GFR (CKD-EPI)AfAm 56 (>60 ml/min/1.73 sqM) Est GFR (CKD-EPI)NonAf 49 (>60 ml/min/1.73 sqM) Glucose 89 (74-99) mg/dL Calcium 9.2 (8.4-10.2) mg/dL Magnesium 1.7 (1.6-2.3) mg/dL Total Bilirubin 0.2 (0.2-1.3) mg/dL AST 15 (14-36) U/L ALT 13 (9-52) U/L Alkaline Phosphatase 69 (38-126) U/L Total Protein 6.7 (6.3-8.2) g/dL Albumin 3.8 (3.5-5.0) g/dL Disposition Clinical Impression: Iron deficiency anemia, Symptomatic anemia Disposition: ADMITTED IP TO THIS HOSP Condition: Stable Is patient prescribed a controlled substance at d/c from ED?: No Referrals: Franklyn Marino DO [Primary Care Provider] - 1-2 days Decision to Admit Reason: Admit from EC Decision Date: 05/12/18 Decision Time: 14:38
[2018-05-12 13:38] LABS: Anisocytosis Slight; Basophils % (A) 0 %; Eosinophils # (A) 0.2 k/uL (0-0.7); Eosinophils % (A) 2 %; Hypochromasia Marked; Lymphocytes # (A) 1.1 k/uL (1.0-4.8); Lymphocytes % (A) 14 %; MCH 23.9 pg (25.0-35.0); MCHC 30.6 g/dL (31.0-37.0); MCV 78.3 fL (80.0-100.0); Mean Platelet Volume 7.4; Microcytosis Slight; Monocytes # (A) 0.5 k/uL (0-1.0); Monocytes % (A) 6 %; Neutrophils # (A) 5.8 k/uL (1.3-7.7); Neutrophils % (A) 75 %; Platelet Count 330 k/uL (150-450); Poikilocytosis Marked; RBC 2.48 m/uL (3.80-5.40); RDW 18.5 % (11.5-15.5); WBC 7.7 k/uL (3.8-10.6)
[2018-05-12 13:43] LABS: HCT 19.4 % (34.0-46.0); HGB 5.9 gm/dL (11.4-16.0)
[2018-05-12 13:49] LABS: Albumin 3.8 g/dL (3.5-5.0); Calcium 9.2 mg/dL (8.4-10.2); Magnesium 1.7 mg/dL (1.6-2.3); Potassium 3.5 mmol/L (3.5-5.1); Total Bilirubin 0.2 mg/dL (0.2-1.3); Total Protein 6.7 g/dL (6.3-8.2)
[2018-05-12] MEDS ORDERED: SODIUM CHLORIDE 0.9% 500 ML 500 ML IV ONE (14:24)
[2018-05-12] MEDS ORDERED: NALOXONE 0.4 MG/ML 1 ML VIAL IV PRN (14:34)
[2018-05-12 14:44] LABS: INR 0.9 (<1.2); Prothrombin Time 9.9 sec (9.0-12.0)
[2018-05-12 14:51] LABS: Partial Thromboplastin Time 18.4 sec (22.0-30.0)
[2018-05-12 15:29] VITALS: BMI 28.2
[2018-05-12 20:03] LABS: Glucose,Whole Blood 147 mg/dL (75-99)
[2018-05-12] MEDS: oxyCODONE-APAP 7.5-325MG 1 EACH TAB PO PRN (21:20)
[2018-05-12] MEDS: busPIRone HCl 10 MG TAB PO SCH (21:21)
[2018-05-12] MEDS: ALPRAZolam 0.25 MG TAB PO PRN (22:01)
[2018-05-13] MEDS: LEVOTHYROXINE 75 MCG TAB PO SCH (05:32)
[2018-05-13] MEDS: IPRATROPIUM-ALBUTEROL 3 ML NEB INHALATION SCH ×4 (08:33→20:34)
[2018-05-13] MEDS: oxyCODONE-APAP 7.5-325MG 1 EACH TAB PO PRN ×2 (08:35→17:45)
[2018-05-13] MEDS: LISINOPRIL 2.5 MG TAB PO SCH (08:35)
[2018-05-13] MEDS: FUROSEMIDE 40 MG TAB PO SCH (08:35)
[2018-05-13] MEDS: POTASSIUM CHLORIDE ER 10 MEQ TAB.ER.PRT PO SCH (08:35)
[2018-05-13] MEDS: ASPIRIN 81 MG PO SCH (08:36)
[2018-05-13] MEDS: ATENOLOL 12.5 MG TAB PO SCH (08:37)
[2018-05-13] MEDS: CITALOPRAM HYDROBROMIDE 20 MG TAB PO SCH (08:37)
[2018-05-13] MEDS: busPIRone HCl 10 MG TAB PO SCH ×2 (08:38→20:33)
[2018-05-13] MEDS ORDERED: FUROSEMIDE 10 MG/ML 2 ML VIAL IV ONE (11:51)
--- NOTE | 2018-05-13 13:12 | P.HPIM ---
History of Present Illness H&P Date: 05/12/18 Chief Complaint: acute symptomatic anemi, chronic colitis, A. fib/A flutter, hyper recurren 77-year-old female one of Dr. Marino patient with frequent flying to the hospital with acute anemia blood loss iron deficient with hemoglobin run as low as 5 sometimes with chronic history of colitis, recurrent C. diff, chronic diarrhea and chronic gastrointestinal symptoms. Patient was the hospital four time in the last 8 weeks with severe diarrhea acute blood loss along with acute symptom of colitis and recurrent shortness of breath and dyspnea. Patient apparently was diagnosed with acute anemia this time and arrangement for blood transfusion was made to have it as an outpatient patient presented today to the outpatient clinic they were not able to start peripheral IV for her transfusion ended up being sent to the emergency department and found to have severe anemia with hemoglobin of 5.9 very symptomatic very dyspneic and surprisingly had we have antibiotic he will take over 12 hours to get her 2 units of blood Angela. Patient was admitted for symptoms treatment for acute anemia with no active sign of GI bleed at this point. No need for any further GI workup at this point patient had recurrent workup in the last 2 years last time was less than 6 month ago. Patient blood transfusion was order and will be admitted will continue fluid and the Crystal resuscitation till her blood transfusion complete. Review of Systems CONSTITUTIONAL: Well-developed very pale in mild respiratory distre EYES: No icterus sclerae, no conjunctivitis. EARS, NOSE, MOUTH, THROAT, and FACE: No sore throat, lymphadenopathy, carotid bruits or deformity. RESPIRATORY: mild shortness of breath with mild cough with no whee CARDIOVASCULAR: positive chest pain and dyspn with PND and orthopn GASTROINTESTINAL: recurrent episode of ab no constipation no vomitin., No active GI Bleed, no distention or masses. GENITOURINARY: Negative for Hematuria or UTI, no kidney stones. INTEGUMENT/BREAST: Negative for any muscular injury with mild osteoarthritis.. HEMATOLOGIC/LYMPHATIC: Negative for bleed or purpura. MUSCULOSKELTAL: Negative for Myalgia or arthralgia. NEURLOGICAL: No LOC, Sz or syncope, blurred vision dizziness or abnormality.. BEHAVIORAL/PSYCH: Negative. ENDOCRINE: Negative. Past Medical History Past Medical History: Atrial Fibrillation, Atrial Flutter, GERD/Reflux, Hyperlipidemia, Hypertension, Mitral Valve Prolapse (MVP), Rheumatoid Arthritis (RA), Thyroid Disorder Additional Past Medical History / Comment(s): OTHER HX: 03/06/14, 03/30/14, , 07/29/14 with CDIFF colitis, HYPOTHYROID, MVP, urinary incontinence, PROLAPSED MITRAL VALVE- NO PROBLEMS FOR 30 YRS.anemia -requiring blood transfusion History of Any Multi-Drug Resistant Organisms: C-DIFF Date of last positivie culture/infection: cdiff(eia) intrp (positive) MDRO Source:: 12-16-17 under serology in computer Past Surgical History: Adenoidectomy, Cholecystectomy, Hysterectomy, Joint Replacement, Orthopedic Surgery, Tonsillectomy Additional Past Surgical History / Comment(s): 02/18/16 total R hip arthroplasty. Other surgical HX: BILATERAL KNEE REPLACEMENT (2003-RIGHT & 2005 - LEFT); LOWER LUMBAR LAMINECTOMYL4-L5 (2007); LEFT HIP REPLACEMENT (2012) ; RIGHT SHOULDER REPLACEMENT (2008), left total knee arthroplasty revision. Bilateral cataracts with lens implants. FECAL TRASPLANT TX FOR C-DIFF three times.cataracts-lens implants Past Anesthesia/Blood Transfusion Reactions: No Reported Reaction Additional Past Anesthesia/Blood Transfusion Reaction / Comment(s): blood transfusion in past no reactions Smoking Status: Current every day smoker - Past Family History Mother Family Medical History: Cancer Additional Family Medical History / Comment(s): Mother at age 60 with history of emphysema and lung cancer. Father Family Medical History: CVA/TIA Additional Family Medical History / Comment(s): Father at age 74 with problems with his larynx. Sister(s) Family Medical History: Unable to Obtain Daughter(s) Family Medical History: COPD, Myocardial Infarction ([place]) Additional Family Medical History / Comment(s): Mother at age 60 yrs of emphysema/lung CA Son(s) Family Medical History: Myocardial Infarction ([place]) Additional Family Medical History / Comment(s): Father at age 74yrs with "CVA of his larynx" Medications and Allergies Home Medications Medication Instructions Recorded Confirmed Type Aspirin 81 mg PO QAM 07/29/14 05/12/18 History Ipratropium-Albuterol Nebulize 3 ml INHALATION RT-QID 03/23/18 05/12/18 History [Duoneb 0.5 mg-3 mg/3 ml Soln] Lisinopril [Zestril] 2.5 mg PO DAILY #60 tab 03/26/18 05/12/18 Rx ALPRAZolam [Xanax] 0.25 mg PO TID PRN #21 tab 03/28/18 05/12/18 Rx Atenolol [Tenormin] 12.5 mg PO DAILY #30 tab 03/28/18 05/12/18 Rx Levothyroxine Sodium [Synthroid] 75 mcg PO DAILY@0630 #30 tab 03/28/18 05/12/18 Rx Potassium Chloride ER [K-Dur 10] 10 meq PO DAILY #30 tab 03/28/18 05/12/18 Rx busPIRone HCl [Buspar] 10 mg PO BID #60 tab 03/28/18 05/12/18 Rx Citalopram Hydrobromide [CeleXA] 40 mg PO DAILY 05/12/18 05/12/18 History Furosemide [Lasix] 40 mg PO DAILY 05/12/18 05/12/18 History oxyCODONE-APAP 7.5-325MG [Percocet 1 tab PO TID PRN 05/12/18 05/12/18 History 7.5-325 mg] Allergies Allergy/AdvReac Type Severity Reaction Status Date / Time adhesive tape Allergy Rash/Hives Verified 05/12/18 14:26 Influenza Virus Vaccines Allergy "MAKES HER Verified 05/12/18 14:26 FEEL SICK" Sulfa (Sulfonamide Allergy Rash/Hives Verified 05/12/18 14:26 Antibiotics) amoxicillin trihydrate AdvReac Diarrhea Verified 05/12/18 14:26 [From Augmentin] ciprofloxacin [From Cipro] AdvReac Unknown Verified 05/12/18 14:26 metronidazole [From Flagyl] AdvReac Unknown Verified 05/12/18 14:26 potassium clavulanate AdvReac Diarrhea Verified 05/12/18 14:26 [From Augmentin] quinidine AdvReac BLOOD CLOTS Verified 05/12/18 14:26 Physical Exam Vitals: Vital Signs Temp Pulse Pulse Resp BP BP Pulse Ox 05/12/18 16:05 97.3 F L 58 L 18 98/48 95 05/12/18 14:21 76 18 90/61 100 05/12/18 12:48 98.2 F 101 H 16 94/59 96 Intake and Output 05/12/18 05/12/18 05/12/18 06:59 14:59 22:59 Intake Total 500 Balance 500 Intake: Amount of Fluid Infused ( 500 ml) Other: Weight 79.379 kg General Appearance: Alert, cooperative, tachypnea In mild respiratory distress very pale Neck HEENT: Supple, no lymphadenopathy, no thyroid enlargement, no carotid bruits. Lungs: decrease breath sound bilaterally fine rhonchi positive mild expiratory whe Chest Wall: Chest wall normal expansion with deep inspiration no tenderness and no deformity was found on exam, no costochondral pain or discomfort. Heart: Regular rate and rhythm, S1, S2 normal, no murmur, rub or gallop.positive tachycardia Back: Symmetric, no curvature, ROM normal, no CVA tenderness. Abdomen: Soft, non-tender, bowel sounds active mild generalized abdomine epigastric and done region area. Extremities: Extremities normal, atraumatic, no cyanosis or edema. Pulses: 2+ and symmetric. Skin: Skin color, texture, tugor normal, no rashes or lesions. Neurologic: Alert oriented x3 cranial nerves II through XII intact, no motor deficit, no abnormal balance or gait. Results CBC & Chem 7: 05/12/18 13:25 05/12/18 13:25 Labs: Abnormal Lab Results - Last 24 Hours (Table) 05/12/18 05/12/18 05/12/18 Range/Units 13:25 13:25 13:25 RBC 2.48 L (3.80-5.40) m/uL Hgb 5.9 L* (11.4-16.0) gm/dL Hct 19.4 L* (34.0-46.0) % MCV 78.3 L (80.0-100.0) fL MCH 23.9 L (25.0-35.0) pg MCHC 30.6 L (31.0-37.0) g/dL RDW 18.5 H (11.5-15.5) % APTT (22.0-30.0) sec BUN 19 H (7-17) mg/dL Creatinine 1.11 H (0.52-1.04) mg/dL POC Glucose (mg/dL) (75-99) mg/dL Crossmatch See Detail 01/31/19 01/31/19 Range/Units 14:15 20:01 RBC (3.80-5.40) m/uL Hgb (11.4-16.0) gm/dL Hct (34.0-46.0) % MCV (80.0-100.0) fL MCH (25.0-35.0) pg MCHC (31.0-37.0) g/dL RDW (11.5-15.5) % APTT 18.4 L (22.0-30.0) sec BUN (7-17) mg/dL Creatinine (0.52-1.04) mg/dL POC Glucose (mg/dL) 147 H (75-99) mg/dL Crossmatch Thrombosis Risk Factor Assmnt - Choose All That Apply Each Factor Represents 1 point: Obesity (BMI >25) Each Risk Factor Represents 3 Points: Age 75 years or older Thrombosis Risk Factor Assessment Total Risk Factor Score: 4 Thrombosis Risk Factor Assessment Level: Moderate Risk Assessment and Plan Plan: 1 Acute symptomatic anemia: Patient will be admitted to the hospital blood transfusion 14 it was requested in the meanwhile continue fluid resuscitation and crystal resuscitation. 2 Recurrent episode of GI bleed with full workup no need for any further workup at this point continue iron supplement and infusion when needed. 3 Severe iron deficiency: With malabsorption of iron has been seen hematology iron infusion has been ordered to be done as needed and can be perform as an outpatient at the hematology clinic. 4 Severe dyspnea and shortness of breath: Combination off chronic diastolic heart failure along with COPD continue to treat underlying disease. Continue patient on bronchodilator and steroid nebulizer. 5 A. fib/A flutter: Pulse rates under control currently remain on Tenormin 12.5 mg daily only. 6 Hypertension: Has been on lisinopril 2.5 mg and atenolol 12.5 mg daily. 7 History of recurrent C. diff: With no episode lately her diarrhea has improved some still on Imodium for symptom control only. 8 Chronic depression: Has been on site Teleprompter 40 mg daily along with BuSpar an as-needed basis. 9 Chronic pain syndrome: Has been on Percocet 3 times a day. 10 Hypothyroidism: Continue Synthroid 75 g daily. 11 GI prophylaxis: Continue patient on PPI with pantoprazole daily. 12 DVT prophylaxis: Patient had absolute contraindication for anticoagulation, will continue patient on knee-high TIMOTEO hose and early mobilization. CODE STATUS: Full code. Admit patient to inpatient status for 1-2 nights.
--- NOTE | 2018-05-13 13:14 | P.DS ---
Providers Date of admission: 05/12/18 14:34 Attending physician: Angel Snell [facility]: Chief Complaint: acute symptomatic anemi, chronic colitis, A. fib/A flutter, hyper recurren 77-year-old female one of Dr. Marino patient with frequent flying to the hospital with acute anemia blood loss iron deficient with hemoglobin run as low as 5 sometimes with chronic history of colitis, recurrent C. diff, chronic diarrhea and chronic gastrointestinal symptoms. Patient was the hospital four time in the last 8 weeks with severe diarrhea acute blood loss along with acute symptom of colitis and recurrent shortness of breath and dyspnea. Patient apparently was diagnosed with acute anemia this time and arrangement for blood transfusion was made to have it as an outpatient patient presented today to the outpatient clinic they were not able to start peripheral IV for her transfusion ended up being sent to the emergency department and found to have severe anemia with hemoglobin of 5.9 very symptomatic very dyspneic and surprisingly had we have antibiotic he will take over 12 hours to get her 2 units of blood Angela. Patient was admitted for symptoms treatment for acute anemia with no active sign of GI bleed at this point. No need for any further GI workup at this point patient had recurrent workup in the last 2 years last time was less than 6 month ago. Patient blood transfusion was order and will be admitted will continue fluid and the Crystal resuscitation till her blood transfusion complete. Physical examination: Vitals: Vital Signs Temp Pulse Pulse Resp BP BP Pulse Ox 05/12/18 16:05 97.3 F L 58 L 18 98/48 95 05/12/18 14:21 76 18 90/61 100 05/12/18 12:48 98.2 F 101 H 16 94/59 96 Intake and Output 05/12/18 05/12/18 05/12/18 06:59 14:59 22:59 Intake Total 500 Balance 500 Intake: Amount of Fluid Infused ( 500 ml) Other: Weight 79.379 kg General Appearance: Alert, cooperative, tachypnea In mild respiratory distress very pale Neck HEENT: Supple, no lymphadenopathy, no thyroid enlargement, no carotid bruits. Lungs: decrease breath sound bilaterally fine rhonchi positive mild expiratory whe Chest Wall: Chest wall normal expansion with deep inspiration no tenderness and no deformity was found on exam, no costochondral pain or discomfort. Heart: Regular rate and rhythm, S1, S2 normal, no murmur, rub or gallop.positive tachycardia Back: Symmetric, no curvature, ROM normal, no CVA tenderness. Abdomen: Soft, non-tender, bowel sounds active mild generalized abdomine epigastric and done region area. Extremities: Extremities normal, atraumatic, no cyanosis or edema. Pulses: 2+ and symmetric. Skin: Skin color, texture, tugor normal, no rashes or lesions. Neurologic: Alert oriented x3 cranial nerves II through XII intact, no motor deficit, no abnormal balance or gait. Plan: 1 Acute symptomatic anemia: Patient will be admitted to the hospital for blood transfusion, was requested in the meanwhile continue fluid resuscitation and crystal resuscitation. 2 Recurrent episode of GI bleed with full workup no need for any further workup at this point continue iron supplement and infusion when needed. 3 Severe iron deficiency: With malabsorption of iron has been seen hematology iron infusion has been ordered to be done as needed and can be perform as an outpatient at the hematology clinic. 4 Severe dyspnea and shortness of breath: Combination off chronic diastolic heart failure along with COPD continue to treat underlying disease. Continue patient on bronchodilator and steroid nebulizer. 5 A. fib/A flutter: Pulse rates under control currently remain on Tenormin 12.5 mg daily only. 6 Hypertension: Has been on lisinopril 2.5 mg and atenolol 12.5 mg daily. 7 History of recurrent C. diff: With no episode lately her diarrhea has improved some still on Imodium for symptom control only. 8 Chronic depression: Has been on site Teleprompter 40 mg daily along with BuSpar an as-needed basis. 9 Chronic pain syndrome: Has been on Percocet 3 times a day. 10 Hypothyroidism: Continue Synthroid 75 g daily. 11 GI prophylaxis: Continue patient on PPI with pantoprazole daily. 12 DVT prophylaxis: Patient had absolute contraindication for anticoagulation, will continue patient on knee-high TIMOTEO hose and early mobilization. Long talk with the patient about further planning again to see the senior erp consultant every 2 weeks and request to do CBC and iron testing and to do iron infusion along with Procrit at least every 2-4 weeks repeatedly till her hemoglobin stain up and not dropping down any further. Patient is seen Dr. Acuna appointment will be made with him from here on and she'll be going back to see Dr. Marino every month. Patient Condition at Discharge: Stable Plan - Discharge Summary Discharge Rx Participant: Yes New Discharge Prescriptions: Continue Aspirin 81 mg PO QAM Ipratropium-Albuterol Nebulize [Duoneb 0.5 mg-3 mg/3 ml Soln] 3 ml INHALATION RT-QID Lisinopril [Zestril] 2.5 mg PO DAILY #60 tab ALPRAZolam [Xanax] 0.25 mg PO TID PRN #21 tab PRN Reason: Anxiety Atenolol [Tenormin] 12.5 mg PO DAILY #30 tab busPIRone HCl [Buspar] 10 mg PO BID #60 tab Levothyroxine Sodium [Synthroid] 75 mcg PO DAILY@0630 #30 tab Potassium Chloride ER [K-Dur 10] 10 meq PO DAILY #30 tab Citalopram Hydrobromide [CeleXA] 40 mg PO DAILY Furosemide [Lasix] 40 mg PO DAILY oxyCODONE-APAP 7.5-325MG [Percocet 7.5-325 mg] 1 tab PO TID PRN PRN Reason: Pain Discharge Medication List Aspirin 81 mg PO QAM 07/29/14 [History] Ipratropium-Albuterol Nebulize [Duoneb 0.5 mg-3 mg/3 ml Soln] 3 ml INHALATION RT -QID 03/23/18 [History] Lisinopril [Zestril] 2.5 mg PO DAILY #60 tab 03/26/18 [Rx] ALPRAZolam [Xanax] 0.25 mg PO TID PRN #21 tab 03/28/18 [Rx] Atenolol [Tenormin] 12.5 mg PO DAILY #30 tab 03/28/18 [Rx] Levothyroxine Sodium [Synthroid] 75 mcg PO DAILY@0630 #30 tab 03/28/18 [Rx] Potassium Chloride ER [K-Dur 10] 10 meq PO DAILY #30 tab 03/28/18 [Rx] busPIRone HCl [Buspar] 10 mg PO BID #60 tab 03/28/18 [Rx] Citalopram Hydrobromide [CeleXA] 40 mg PO DAILY 05/12/18 [History] Furosemide [Lasix] 40 mg PO DAILY 05/12/18 [History] oxyCODONE-APAP 7.5-325MG [Percocet 7.5-325 mg] 1 tab PO TID PRN 05/12/18 [ History] Follow up Appointment(s)/Referral(s): Eddie Acuna MD [STAFF PHYSICIAN] - 05/30/18 3:00 pm ([address] Office) Franklyn Marino DO [Primary Care Provider] - 05/20/18 8:00 am Patient Instructions/Handouts: Anemia (DC), Blood Transfusion (GEN)
[2018-05-13] MEDS ORDERED: traZODone HCL 50 MG TAB PO SCH (21:00)
[2018-05-13] MEDS: ALPRAZolam 0.25 MG TAB PO PRN (22:57)
[2018-05-13 23:59] VITALS: RESP 16
[2018-05-14] MEDS: oxyCODONE-APAP 7.5-325MG 1 EACH TAB PO PRN ×2 (01:18→08:46)
[2018-05-14 05:44] VITALS: BP 206/145; PULSE 82; TEMP 98.1
[2018-05-14] MEDS: LEVOTHYROXINE 75 MCG TAB PO SCH (06:18)
[2018-05-14] MEDS: ASPIRIN 81 MG PO SCH (08:41)
[2018-05-14] MEDS: LISINOPRIL 2.5 MG TAB PO SCH (08:42)
[2018-05-14] MEDS: CITALOPRAM HYDROBROMIDE 20 MG TAB PO SCH (08:42)
[2018-05-14] MEDS: ATENOLOL 12.5 MG TAB PO SCH (08:42)
[2018-05-14] MEDS: FUROSEMIDE 40 MG TAB PO SCH (08:42)
[2018-05-14] MEDS: POTASSIUM CHLORIDE ER 10 MEQ TAB.ER.PRT PO SCH (08:42)
[2018-05-14] MEDS: busPIRone HCl 10 MG TAB PO SCH (08:42)
[2018-05-14] MEDS: IPRATROPIUM-ALBUTEROL 3 ML NEB INHALATION SCH (08:49)
== END 2018-05-14 09:31 | disposition home or self-care (01) | DRG 812 ==
LOC: EC 12:37 → 3NMEDONC 14:34 → OBSVTOIN 14:34 → 3NMEDONC 15:12
PROVIDERS: ADMIT Internal Medicine Geriatric Medicine; ATTEND Internal Medicine Geriatric Medicine
PROC: 30233N1 Transfusion of Nonautologous Red Blood Cells into Peripheral Vein, Percutaneous Approach (ICD-10-PCS; principal; 2018-05-13)
DX: D62 Acute posthemorrhagic anemia (principal); I48.92 Unspecified atrial flutter; I50.32 Chronic diastolic (congestive) heart failure; K90.9 Intestinal malabsorption, unspecified; D50.9 Iron deficiency anemia, unspecified; E03.9 Hypothyroidism, unspecified; E78.5 Hyperlipidemia, unspecified; F17.200 Nicotine dependence, unspecified, uncomplicated; F32.9 Major depressive disorder, single episode, unspecified; G89.4 Chronic pain syndrome; I11.0 Hypertensive heart disease with heart failure; I34.1 Nonrheumatic mitral (valve) prolapse; I48.91 Unspecified atrial fibrillation; J44.9 Chronic obstructive pulmonary disease, unspecified; K21.9 Gastro-esophageal reflux disease without esophagitis; K52.9 Noninfective gastroenteritis and colitis, unspecified; M06.9 Rheumatoid arthritis, unspecified; Z79.82 Long term (current) use of aspirin; Z79.890 Hormone replacement therapy; Z79.899 Other long term (current) drug therapy; Z80.1 Family history of malignant neoplasm of trachea, bronchus and lung; Z82.3 Family history of stroke; Z82.49 Family history of ischemic heart disease and other diseases of the circulatory system; Z82.5 Family history of asthma and other chronic lower respiratory diseases; Z90.710 Acquired absence of both cervix and uterus; Z98.42 Cataract extraction status, left eye; Z98.41 Cataract extraction status, right eye; Z96.1 Presence of intraocular lens; Z96.611 Presence of right artificial shoulder joint; Z96.643 Presence of artificial hip joint, bilateral; Z96.653 Presence of artificial knee joint, bilateral
CPT/HCPCS: 36415; 80053; 83735; 85025; 85610; 85730; 86850; 86870; 86880; 86900; 86901; 86902; 86920; 94640; 96360; 99285

== ENCOUNTER 2018-06-06 18:03 | Inpatient (IN) | payer MEDICARE ==
[2018-06-06] MEDS ORDERED: SODIUM CHLORIDE 0.9% 1,000 ML IV ONE (20:18)
--- NOTE | 2018-06-06 20:22 | ED ---
Recheck HPI - General Chief Complaint: Recheck/Abnormal Lab/Rx Stated Complaint: Dr Acuna wants this pt to receive 2 units Source: patient, RN notes reviewed, old records reviewed Mode of arrival: ambulatory Limitations: no limitations - History of Present Illness Initial Comments: This is a 77-year-old female the ER for evaluation. Patient is to is to be evaluated regarding weakness, not feeling well. Lightheadedness dizziness or weakness. No trauma no fevers. No travel history or sick contacts. Patient states she does not feel well. Has history of the same regarding anemia MD Complaint: abnormal lab (Hemoglobin) -: unknown Returns Today for: Called Because of Abnormal Lab/Test Context: called for abnormal lab result Associated Symptoms: shortness of breath, malaise - Related Data Home Medications Medication Instructions Recorded Confirmed Aspirin 81 mg PO QAM 07/29/14 05/12/18 Ipratropium-Albuterol Nebulize 3 ml INHALATION RT-QID 03/23/18 05/12/18 [Duoneb 0.5 mg-3 mg/3 ml Soln] Citalopram Hydrobromide [CeleXA] 40 mg PO DAILY 05/12/18 05/12/18 Furosemide [Lasix] 40 mg PO DAILY 05/12/18 05/12/18 oxyCODONE-APAP 7.5-325MG [Percocet 1 tab PO TID PRN 05/12/18 05/12/18 7.5-325 mg] Previous Rx's Medication Instructions Recorded Lisinopril [Zestril] 2.5 mg PO DAILY #60 tab 03/26/18 ALPRAZolam [Xanax] 0.25 mg PO TID PRN #21 tab 03/28/18 Atenolol [Tenormin] 12.5 mg PO DAILY #30 tab 03/28/18 Levothyroxine Sodium [Synthroid] 75 mcg PO DAILY@0630 #30 tab 03/28/18 Potassium Chloride ER [K-Dur 10] 10 meq PO DAILY #30 tab 03/28/18 busPIRone HCl [Buspar] 10 mg PO BID #60 tab 03/28/18 Allergies Allergy/AdvReac Type Severity Reaction Status Date / Time adhesive tape Allergy Rash/Hives Verified 06/06/18 18:15 Influenza Virus Vaccines Allergy "MAKES HER Verified 06/06/18 18:15 FEEL SICK" Sulfa (Sulfonamide Allergy Rash/Hives Verified 06/06/18 18:15 Antibiotics) amoxicillin trihydrate AdvReac Diarrhea Verified 06/06/18 18:15 [From Augmentin] ciprofloxacin [From Cipro] AdvReac Unknown Verified 06/06/18 18:15 metronidazole [From Flagyl] AdvReac Unknown Verified 06/06/18 18:15 potassium clavulanate AdvReac Diarrhea Verified 06/06/18 18:15 [From Augmentin] quinidine AdvReac BLOOD CLOTS Verified 06/06/18 18:15 Review of Systems ROS Statement: Those systems with pertinent positive or pertinent negative responses have been documented in the HPI. ROS Other: All systems not noted in ROS Statement are negative. Past Medical History Past Medical History: Atrial Fibrillation, Atrial Flutter, GERD/Reflux, Hyperlipidemia, Hypertension, Mitral Valve Prolapse (MVP), Rheumatoid Arthritis (RA), Thyroid Disorder Additional Past Medical History / Comment(s): OTHER HX: 03/06/14, 03/30/14, , 07/29/14 with CDIFF colitis, HYPOTHYROID, MVP, urinary incontinence, PROLAPSED MITRAL VALVE- NO PROBLEMS FOR 30 YRS.anemia -requiring blood transfusion History of Any Multi-Drug Resistant Organisms: C-DIFF Date of last positivie culture/infection: cdiff(eia) intrp (positive) MDRO Source:: 12-16-17 under serology in computer Past Surgical History: Adenoidectomy, Cholecystectomy, Hysterectomy, Joint Replacement, Orthopedic Surgery, Tonsillectomy Additional Past Surgical History / Comment(s): 02/18/16 total R hip arthroplasty. Other surgical HX: BILATERAL KNEE REPLACEMENT (2003-RIGHT & 2005 - LEFT); LOWER LUMBAR LAMINECTOMYL4-L5 (2007); LEFT HIP REPLACEMENT (2012) ; RIGHT SHOULDER REPLACEMENT (2008), left total knee arthroplasty revision. Bilateral cataracts with lens implants. FECAL TRASPLANT TX FOR C-DIFF three times.cataracts-lens implants Past Anesthesia/Blood Transfusion Reactions: No Reported Reaction Additional Past Anesthesia/Blood Transfusion Reaction / Comment(s): blood transfusion in past no reactions Past Psychological History: Anxiety, Depression Smoking Status: Current every day smoker Past Alcohol Use History: None Reported Past Drug Use History: None Reported - Past Family History Mother Family Medical History: Cancer Additional Family Medical History / Comment(s): Mother at age 60 with history of emphysema and lung cancer. Father Family Medical History: CVA/TIA Additional Family Medical History / Comment(s): Father at age 74 with problems with his larynx. Sister(s) Family Medical History: Unable to Obtain Daughter(s) Family Medical History: COPD, Myocardial Infarction ([place]) Additional Family Medical History / Comment(s): Mother at age 60 yrs of emphysema/lung CA Son(s) Family Medical History: Myocardial Infarction ([place]) Additional Family Medical History / Comment(s): Father at age 74yrs with "CVA of his larynx" General Exam Limitations: no limitations General appearance: alert, in no apparent distress, lethargic Head exam: Present: atraumatic, normocephalic, normal inspection Eye exam: Present: normal appearance, PERRL, EOMI. Absent: scleral icterus, conjunctival injection, periorbital swelling ENT exam: Present: normal exam, mucous membranes moist Neck exam: Present: normal inspection. Absent: tenderness, meningismus, lymphadenopathy Respiratory exam: Present: normal lung sounds bilaterally. Absent: respiratory distress, wheezes, rales, rhonchi, stridor Cardiovascular Exam: Present: regular rate, normal rhythm, normal heart sounds. Absent: systolic murmur, diastolic murmur, rubs, gallop, clicks GI/Abdominal exam: Present: soft, normal bowel sounds. Absent: distended, tenderness, guarding, rebound, rigid Extremities exam: Present: normal inspection, full ROM, normal capillary refill. Absent: tenderness, pedal edema, joint swelling, calf tenderness Back exam: Present: normal inspection Neurological exam: Present: alert, oriented X3, CN II-XII intact Psychiatric exam: Present: normal affect, normal mood Skin exam: Present: warm, dry, intact, normal color. Absent: rash Course Vital Signs 06/06/18 18:10 Temperature 97.9 F Pulse Rate 55 L Respiratory 18 Rate Blood Pressure 100/57 O2 Sat by Pulse 98 Oximetry - Reevaluation(s) Reevaluation #1: 06/06/18 20:21 Medical record is reviewed with history of multiple times having the same issues Reevaluation #2: 06/06/18 20:21 Patient still feeling very weak dizzy lightheaded Medical Decision Making - Medical Decision Making 77 female the ER with recurrent anemia. Patient sent in by oncology hematology for evaluation she may, patient is anemic we'll be admitted for transfusion and monitoring Disposition Clinical Impression: Weakness, Iron deficiency anemia, GI bleeding, B12 deficiency anemia, Microcytic hypochromic anemia Disposition: ADMITTED IP TO THIS HOSP Condition: Fair Referrals: Franklyn Marino DO [Primary Care Provider] - 1-2 days
[2018-06-06 21:09] LABS: Anisocytosis Moderate; Hypochromasia Marked; MCH 21.9 pg (25.0-35.0); MCHC 27.8 g/dL (31.0-37.0); Mean Platelet Volume 7.6; Microcytosis Moderate; Platelet Count 328 k/uL (150-450); Poikilocytosis Marked; RBC 2.34 m/uL (3.80-5.40); RDW 21.1 % (11.5-15.5)
[2018-06-06 21:20] LABS: HGB 5.1 gm/dL (11.4-16.0)
[2018-06-06 21:21] LABS: HCT 18.5 % (34.0-46.0); Partial Thromboplastin Time 18.1 sec (22.0-30.0); Prothrombin Time 10.8 sec (9.0-12.0)
[2018-06-06 21:28] LABS: Albumin 3.7 g/dL (3.5-5.0); Calcium 8.8 mg/dL (8.4-10.2); Eosinophils # (M) 0.07 k/uL (0-0.7); Lymphocytes # (M) 1.54 k/uL (1.0-4.8); Magnesium 1.9 mg/dL (1.6-2.3); Monocytes # (M) 0.42 k/uL (0-1.0); Neutrophils # (M) 5.11 k/uL (1.3-7.7); Neutrophils % (M) 73 %; Nucleated Red Blood Cells 0 /100 WBC (0-0); Phosphorus 4.6 mg/dL (2.5-4.5); Poikilocytosis (M) Present; Polychromasia Present; Potassium 3.8 mmol/L (3.5-5.1); Total Bilirubin 0.6 mg/dL (0.2-1.3); Total Cells Counted 200; Total Protein 6.6 g/dL (6.3-8.2)
[2018-06-06 21:29] LABS: Hypersegmented Neutrophils Present; Ovalocytes Present; Target Cells Present; Toxic Vacuolation Present
[2018-06-06 23:08] VITALS: BMI 25.0
[2018-06-07] MEDS ORDERED: ALPRAZolam 0.5 MG TAB PO SCH ×2 (00:45)
[2018-06-07] MEDS: oxyCODONE-APAP 7.5-325MG 1 EACH TAB PO PRN (01:38)
[2018-06-07] MEDS: traZODone HCL 100 MG TAB PO SCH ×2 (01:39→21:11)
[2018-06-07] MEDS ORDERED: SODIUM CHLORIDE 0.9% 500 ML 500 ML IV ONE (03:11)
[2018-06-07] MEDS: SODIUM CHLORIDE 0.9% 1,000 ML IV SCH ×3 (03:31→21:15)
--- NOTE | 2018-06-07 08:41 | P.CONS ---
History of Present Illness - Reason for Consult Consult date: 06/07/18 anemia Requesting physician: Yeison Woodruff - Chief Complaint anemia on routine blood work - History of Present Illness Ms. Trejo is a very pleasant female pt of Dr. Acuna, initially seen in consult [facility] 03/16/18, with a long-standing history of iron deficient anemia that was diagnosed 2012. She has had extensive workup including EGD and colonoscopy in 2014, and then EGD again in 2016, all negative. She tried oral iron supplementation with somewhat irregular use due to constipation. During an episode in 2017 she had required about 6-8 units of packed red blood cells, iron studies showed iron deficiency, B12 had a significant drop. She had a capsule endoscopy that was negative. Patient had trouble keeping appointments in the office, due to difficulties with transportation and weakness. She was admitted to the hospital again on 05/11/18 with hemoglobin in the 5 range and was discharged after transfusion. She, unfortunately, again missed appointment due to transportation issues and was ultimately seen for her first office visit on 06/06/18. She was sent to hospital for transfusion, Hgb 5.1 on admit. Pt has been symptomatic for a few days, weakness, SOB with any activity, denies any bleeding. No other c/o on a 14 point ROS Review of Systems 14 point ROS is negative except as stated in HPI Past Medical History Past Medical History: Atrial Fibrillation, Atrial Flutter, GERD/Reflux, Hyperlipidemia, Hypertension, Mitral Valve Prolapse (MVP), Rheumatoid Arthritis (RA), Thyroid Disorder Additional Past Medical History / Comment(s): OTHER HX: 03/06/14, 03/30/14, , 07/29/14 with CDIFF colitis, HYPOTHYROID, MVP, urinary incontinence, PROLAPSED MITRAL VALVE- NO PROBLEMS FOR 30 YRS.anemia -requiring blood transfusion History of Any Multi-Drug Resistant Organisms: C-DIFF Year Discovered:: 2016 MDRO Source:: Stool Past Surgical History: Adenoidectomy, Cholecystectomy, Hysterectomy, Joint Replacement, Orthopedic Surgery, Tonsillectomy Additional Past Surgical History / Comment(s): 02/18/16 total R hip arthroplasty. Other surgical HX: BILATERAL KNEE REPLACEMENT (2003-RIGHT & 2005 - LEFT); LOWER LUMBAR LAMINECTOMYL4-L5 (2007); LEFT HIP REPLACEMENT (2012) ; RIGHT SHOULDER REPLACEMENT (2008), left total knee arthroplasty revision. Bilateral cataracts with lens implants. FECAL TRASPLANT TX FOR C-DIFF three times.cataracts-lens implants Past Anesthesia/Blood Transfusion Reactions: No Reported Reaction Additional Past Anesthesia/Blood Transfusion Reaction / Comm: blood transfusion in past no reactions Past Psychological History: Anxiety, Depression Additional Psychological History / Comment(s): pt lives in own home w/roommate, SHE IS A . STILL DRIVES, has an electric scooter currently not working so uses rollator. Smoking Status: Current every day smoker Past Alcohol Use History: None Reported Additional Past Alcohol Use History / Comment(s): has smoked since 1953- 5 cig per day and stated she has no intention of quitting No alcohol use or abuse. No street drug use marijuana or medical marijuana use. Past Drug Use History: None Reported - Past Family History Mother Family Medical History: Cancer Additional Family Medical History / Comment(s): Mother at age 60 with history of emphysema and lung cancer. Father Family Medical History: CVA/TIA Additional Family Medical History / Comment(s): Father at age 74 with problems with his larynx. Sister(s) Family Medical History: Unable to Obtain Daughter(s) Family Medical History: COPD, Myocardial Infarction ([place]) Additional Family Medical History / Comment(s): Mother at age 60 yrs of emphysema/lung CA Son(s) Family Medical History: Myocardial Infarction ([place]) Additional Family Medical History / Comment(s): Father at age 74yrs with "CVA of his larynx" Medications and Allergies Home Medications Medication Instructions Recorded Confirmed Type Ipratropium-Albuterol Nebulize 3 ml INHALATION RT-QID PRN 03/23/18 06/06/18 History [Duoneb 0.5 mg-3 mg/3 ml Soln] Lisinopril [Zestril] 2.5 mg PO DAILY #60 tab 03/26/18 06/06/18 Rx Potassium Chloride ER [K-Dur 10] 10 meq PO DAILY #30 tab 03/28/18 06/06/18 Rx busPIRone HCl [Buspar] 10 mg PO BID #60 tab 03/28/18 06/06/18 Rx Citalopram Hydrobromide [CeleXA] 40 mg PO DAILY 05/12/18 06/06/18 History Furosemide [Lasix] 40 mg PO DAILY 05/12/18 06/06/18 History oxyCODONE-APAP 7.5-325MG [Percocet 0.5 tab PO Q6H 05/12/18 06/06/18 History 7.5-325 mg] ALPRAZolam [Xanax] 2 mg PO HS 06/06/18 06/06/18 History Atenolol 100 mg PO DAILY 06/06/18 06/06/18 History Esomeprazole Magnesium [NexIUM] 40 mg PO DAILY 06/06/18 06/06/18 History Levothyroxine Sodium [Synthroid] 50 mcg PO DAILY 06/06/18 06/06/18 History traZODone HCL 100 mg PO HS 06/06/18 06/06/18 History Allergies Allergy/AdvReac Type Severity Reaction Status Date / Time adhesive tape Allergy Rash/Hives Verified 06/06/18 20:43 Influenza Virus Vaccines Allergy "MAKES HER Verified 06/06/18 20:43 FEEL SICK" Sulfa (Sulfonamide Allergy Rash/Hives Verified 06/06/18 20:43 Antibiotics) amoxicillin trihydrate AdvReac Diarrhea Verified 06/06/18 20:43 [From Augmentin] ciprofloxacin [From Cipro] AdvReac Unknown Verified 06/06/18 20:43 metronidazole [From Flagyl] AdvReac Unknown Verified 06/06/18 20:43 potassium clavulanate AdvReac Diarrhea Verified 06/06/18 20:43 [From Augmentin] quinidine AdvReac BLOOD CLOTS Verified 06/06/18 20:43 Physical Exam Vitals: Vital Signs Temp Pulse Pulse Resp BP BP BP 06/07/18 06:02 98.0 F 60 88/45 06/07/18 05:54 98.0 F 58 L 18 88/45 06/07/18 05:24 98.3 F 57 L 16 89/46 06/07/18 05:14 98.2 F 57 L 14 87/47 06/07/18 04:25 86/49 06/07/18 03:54 96/50 06/07/18 03:51 82/42 06/07/18 03:50 06/07/18 03:42 75/43 06/07/18 03:41 80/37 06/07/18 03:24 83/39 06/07/18 03:21 77/34 06/07/18 03:06 74/38 06/07/18 02:50 76/40 06/07/18 02:30 79/39 06/07/18 02:09 87/37 06/07/18 01:38 93/51 06/07/18 00:41 92/62 06/06/18 23:08 95/59 06/06/18 22:51 95/59 06/06/18 22:35 97.6 F 84/38 06/06/18 22:00 62 18 92/43 06/06/18 21:46 62 18 91/42 06/06/18 18:10 97.9 F 55 L 18 100/57 Pulse Ox 06/07/18 06:02 100 06/07/18 05:54 100 06/07/18 05:24 98 06/07/18 05:14 98 06/07/18 04:25 06/07/18 03:54 06/07/18 03:51 06/07/18 03:50 99 06/07/18 03:42 06/07/18 03:41 06/07/18 03:24 06/07/18 03:21 06/07/18 03:06 06/07/18 02:50 06/07/18 02:30 06/07/18 02:09 06/07/18 01:38 06/07/18 00:41 06/06/18 23:08 06/06/18 22:51 06/06/18 22:35 06/06/18 22:00 99 06/06/18 21:46 100 06/06/18 18:10 98 Intake and Output 06/06/18 06/07/18 06/07/18 22:59 06:59 14:59 Intake Total 1500 Balance 1500 Intake: Intake, IV Titration 1000 Amount Sodium Chloride 0.9% 1, 500 000 ml @ 100 mls/hr IV . Q10H [facility] Rx#:[id number] Sodium Chloride 0.9% 500 500 ml 500 ml @ 999 mls/hr IV .Q31M ONE Rx#:[id number] Oral 500 Blood Product 0 Rc As-1 Unit 0 [id number] Other: # Voids 2 Weight 70.307 kg - Constitutional General appearance: average body habitus, cooperative, no acute distress - EENT Eyes: anicteric sclerae, EOMI ENT: hearing grossly normal - Neck Neck: no lymphadenopathy - Respiratory Respiratory: bilateral: CTA - Cardiovascular Rhythm: regular Heart sounds: normal: S1, S2 Abnormal Heart Sounds: systolic murmur leg Peripheral Edema: bilateral: None - Gastrointestinal General gastrointestinal: no absent bowel sounds, no decreased bowel sounds, no distended, no hepatomegaly, no hyperactive bowel sounds, normal bowel sounds, no organomegaly, no rigid, no scaphoid, soft, no splenomegaly, no tenderness, no umbilical hernia, no ventral hernia - Integumentary Integumentary: pale - Neurologic Neurologic: CNII-XII intact - Musculoskeletal Musculoskeletal: generalized weakness, strength equal bilaterally - Psychiatric Psychiatric: A&O x's 3, appropriate affect, intact judgment & insight Results CBC & Chem 7: 06/06/18 20:52 06/06/18 20:52 Labs: Abnormal Lab Results - Last 24 Hours (Table) 06/06/18 06/06/18 06/06/18 Range/Units 20:52 20:52 20:52 RBC 2.34 L (3.80-5.40) m/uL Hgb 5.1 L* (11.4-16.0) gm/dL Hct 18.5 L* (34.0-46.0) % MCV 79.0 L (80.0-100.0) fL MCH 21.9 L (25.0-35.0) pg MCHC 27.8 L (31.0-37.0) g/dL RDW 21.1 H (11.5-15.5) % APTT 18.1 L (22.0-30.0) sec Glucose 115 H (74-99) mg/dL Phosphorus 4.6 H (2.5-4.5) mg/dL AST 68 H (14-36) U/L Crossmatch 06/06/18 Range/Units 20:52 RBC (3.80-5.40) m/uL Hgb (11.4-16.0) gm/dL Hct (34.0-46.0) % MCV (80.0-100.0) fL MCH (25.0-35.0) pg MCHC (31.0-37.0) g/dL RDW (11.5-15.5) % APTT (22.0-30.0) sec Glucose (74-99) mg/dL Phosphorus (2.5-4.5) mg/dL AST (14-36) U/L Crossmatch See Detail Assessment and Plan (1) B12 deficiency anemia Current Visit: Yes Status: Chronic Priority: Medium Code(s): D51.9 - VITAMIN B12 DEFICIENCY ANEMIA, UNSPECIFIED SNOMED Code(s): 79510392 (2) Microcytic hypochromic anemia Current Visit: Yes Status: Chronic Priority: High Code(s): D50.9 - IRON DEFICIENCY ANEMIA, UNSPECIFIED SNOMED Code(s): 27089100 (3) Iron deficiency anemia Current Visit: Yes Status: Chronic Priority: High Code(s): D50.9 - IRON DEFICIENCY ANEMIA, UNSPECIFIED SNOMED Code(s): 89907611 Plan: Pt has recurrent iron deficiency anemia, appears to follow a pattern of periodic , severe exacerbations of unknown etiology. Extensive GI w/u has been negative. 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 She was advised that the mainstay of treatment from the Heme standpoint would be aggressive iron supplementation and avoidance of any blood thinners, antiplatelet therapy. ASA was stopped. P[facility] panel was ordered in office to rule that out as a cause for recurrent iron deficiency. Plan is to transfuse pt and discharge Did discuss case with the child support case officer. Have asked for contact information to be provided to patient for transportation. Discussed the option of home care doing lab draws in the patient home 2-3 days before her visits so that the appropriate labs can be evaluated prior to visit so treatment can be provided with fewer appts. This is being worked on.
[2018-06-07] MEDS ORDERED: IPRATROPIUM-ALBUTEROL 3 ML NEB INHALATION PRN (09:47)
[2018-06-07] MEDS: oxyCODONE-APAP 7.5-325MG 1 EACH TAB PO SCH ×2 (10:51→18:37)
[2018-06-07] MEDS ORDERED: PANTOPRAZOLE 40 MG TABLET PO STA (11:07)
--- NOTE | 2018-06-07 13:05 | P.HPIM ---
History of Present Illness H&P Date: 06/07/18 Chief Complaint: Acute severe anemia, acute iron loss, shortness of breath l ightheadedness a 77-year-old female one of Dr. Marino patient was seen for the last few years almost on regular basis in the hospital for recurrent anemia with multiple admission for blood transfusion and workup for GI in the last 2 years had EGD and colonoscopy in 2015 in 2017 also had small bowel series ENDOSCOPY THIS PAST YEAR WITH NO MAJOR FINDING. PATIENT CONTINUED TO HAVE SIGNIFICANT DROP IN HER HEMOGLOBIN WITH HEMOGLOBIN RUN DOWN TO 5 and required transfusion. Last time patient had blood transfusion was 3 weeks ago had 1 unit stays in the hospital overnight and end up going home to see Dr. Acuna on regular basis her first appointment with him was on 06/06/2018 her CBC showed hemoglobin 5 patient was referred to [facility] and admitted to have 2 units of blood transfusion and iron infusion 2 in the next 48 hours. Review of Systems CONSTITUTIONAL: Well-developed no acute respiratory distress. EYES: No icterus sclerae, no conjunctivitis. EARS, NOSE, MOUTH, THROAT, and FACE: No sore throat, lymphadenopathy, carotid br uits or deformity. RESPIRATORY: Positive shortness of breath cough and wheezes CARDIOVASCULAR: Positive PND orthopnea no angina GASTROINTESTINAL: No Abd pain, Nausea or vomiting, no Diarrhea or constipation, No GI Bleed, no distention or masses. GENITOURINARY: Negative for Hematuria or UTI, no kidney stones. INTEGUMENT/BREAST: Negative for any muscular injury with mild osteoarthritis.. HEMATOLOGIC/LYMPHATIC: Positive anemia with recurrent blood transfusion. MUSCULOSKELTAL: Negative for Myalgia and generalized arthralgia NEURLOGICAL: No LOC, Sz or syncope, blurred vision dizziness or abnormality.. BEHAVIORAL/PSYCH: Negative. ENDOCRINE: Negative. Past Medical History Past Medical History: Atrial Fibrillation, Atrial Flutter, GERD/Reflux, Hyperlipidemia, Hypertension, Mitral Valve Prolapse (MVP), Rheumatoid Arthritis (RA), Thyroid Disorder Additional Past Medical History / Comment(s): OTHER HX: 03/06/14, 03/30/14, 07/03/14, 07/29/14 with CDIFF colitis, HYPOTHYROID, MVP, urinary incontinence, PROLAPSED MITRAL VALVE- NO PROBLEMS FOR 30 YRS.anemia -requiring blood transfusion History of Any Multi-Drug Resistant Organisms: C-DIFF Date of last positivie culture/infection: 2015 MDRO Source:: Stool Past Surgical History: Adenoidectomy, Cholecystectomy, Hysterectomy, Joint Replacement, Orthopedic Surgery, Tonsillectomy Additional Past Surgical History / Comment(s): 02/18/16 total R hip arthroplasty. Other surgical HX: BILATERAL KNEE REPLACEMENT (2003-RIGHT & 2005 - LEFT); LOWER LUMBAR LAMINECTOMYL4-L5 (2007); LEFT HIP REPLACEMENT (2012); RIGHT SHOULDER REPLACEMENT (2008), left total knee arthroplasty revision. Bilateral cataracts with lens implants. FECAL TRASPLANT TX FOR C-DIFF three ti mes.cataracts-lens implants Past Anesthesia/Blood Transfusion Reactions: No Reported Reaction Additional Past Anesthesia/Blood Transfusion Reaction / Comment(s): blood transfusion in past no reactions Past Psychological History: Anxiety, Depression Additional Psychological History / Comment(s): pt lives in own home w/roommate, SHE IS A . STILL DRIVES, has an electric scooter currently not working so uses rollator. Smoking Status: Current every day smoker Past Alcohol Use History: None Reported Additional Past Alcohol Use History / Comment(s): has smoked since 1954- 5 cig per day and stated she has no intention of quitting No alcohol use or abuse. No street drug use marijuana or medical marijuana use. Past Drug Use History: None Reported - Past Family History Mother Family Medical History: Cancer Additional Family Medical History / Comment(s): Mother at age 60 with history of emphysema and lung cancer. Father Family Medical History: CVA/TIA Additional Family Medical History / Comment(s): Father at age 74 with problems with his larynx. Sister(s) Family Medical History: Unable to Obtain Daughter(s) Family Medical History: COPD, Myocardial Infarction ([place]) Additional Family Medical History / Comment(s): Mother at age 60 yrs of emphysema/lung CA Son(s) Family Medical History: Myocardial Infarction ([place]) Additional Family Medical History / Comment(s): Father at age 74yrs with " CVA of his larynx" Medications and Allergies Home Medications Medication Instructions Recorded Confirmed Type Ipratropium-Albuterol Nebulize 3 ml INHALATION RT-QID PRN 03/23/18 06/06/18 History [Duoneb 0.5 mg-3 mg/3 ml Soln] Lisinopril [Zestril] 2.5 mg PO DAILY #60 tab 03/26/18 06/06/18 Rx Potassium Chloride ER [K-Dur 10] 10 meq PO DAILY #30 tab 03/28/18 06/06/18 Rx busPIRone HCl [Buspar] 10 mg PO BID #60 tab 03/28/18 06/06/18 Rx Citalopram Hydrobromide [CeleXA] 40 mg PO DAILY 05/12/18 06/06/18 History Furosemide [Lasix] 40 mg PO DAILY 05/12/18 06/06/18 History oxyCODONE-APAP 7.5-325MG [Percocet 0.5 tab PO Q6H 05/12/18 06/06/18 History 7.5-325 mg] ALPRAZolam [Xanax] 2 mg PO HS 06/06/18 06/06/18 History Atenolol 100 mg PO DAILY 06/06/18 06/06/18 History Esomeprazole Magnesium [NexIUM] 40 mg PO DAILY 06/06/18 06/06/18 History Levothyroxine Sodium [Synthroid] 50 mcg PO DAILY 06/06/18 06/06/18 History traZODone HCL 100 mg PO HS 06/06/18 06/06/18 History Allergies Allergy/AdvReac Type Severity Reaction Status Date / Time adhesive tape Allergy Rash/Hives Verified 06/06/18 20:43 Influenza Virus Vaccines Allergy "MAKES HER Verified 06/06/18 20:43 FEEL SICK" Sulfa (Sulfonamide Allergy Rash/Hives Verified 06/06/18 20:43 Antibiotics) amoxicillin trihydrate AdvReac Diarrhea Verified 06/06/18 20:43 [From Augmentin] ciprofloxacin [From Cipro] AdvReac Unknown Verified 06/06/18 20:43 metronidazole [From Flagyl] AdvReac Unknown Verified 06/06/18 20:43 potassium clavulanate AdvReac Diarrhea Verified 06/06/18 20:43 [From Augmentin] quinidine AdvReac BLOOD CLOTS Verified 06/06/18 20:43 Physical Exam Vitals: Vital Signs Temp Pulse Pulse Resp BP BP BP 06/07/18 10:56 98.2 F 65 16 92/53 06/07/18 10:53 98.2 F 65 16 92/53 02/26/19 10:43 97.8 F 60 16 90/51 06/07/18 08:44 98.0 F 64 16 91/51 06/07/18 08:41 98.0 F 65 14 91/51 06/07/18 08:40 98.0 F 64 16 91/51 06/07/18 06:02 98.0 F 60 88/45 06/07/18 05:54 98.0 F 58 L 18 88/45 06/07/18 05:24 98.3 F 57 L 16 89/46 06/07/18 05:14 98.2 F 57 L 14 87/47 06/07/18 04:25 86/49 06/07/18 03:54 96/50 06/07/18 03:51 82/42 06/07/18 03:50 06/07/18 03:42 75/43 06/07/18 03:41 80/37 06/07/18 03:24 83/39 06/07/18 03:21 77/34 06/07/18 03:06 74/38 06/07/18 02:50 76/40 06/07/18 02:30 79/39 06/07/18 02:09 87/37 06/07/18 01:38 93/51 06/07/18 00:41 92/62 06/06/18 23:08 95/59 06/06/18 22:51 95/59 06/06/18 22:35 97.6 F 84/38 06/06/18 22:00 62 18 92/43 06/06/18 21:46 62 18 91/42 06/06/18 18:10 97.9 F 55 L 18 100/57 Pulse Ox 06/07/18 10:56 98 06/07/18 10:53 98 06/07/18 10:43 98 06/07/18 08:44 100 06/07/18 08:41 100 06/07/18 08:40 100 06/07/18 06:02 100 06/07/18 05:54 100 06/07/18 05:24 98 06/07/18 05:14 98 06/07/18 04:25 06/07/18 03:54 06/07/18 03:51 06/07/18 03:50 99 06/07/18 03:42 06/07/18 03:41 06/07/18 03:24 06/07/18 03:21 06/07/18 03:06 06/07/18 02:50 06/07/18 02:30 06/07/18 02:09 06/07/18 01:38 06/07/18 00:41 06/06/18 23:08 06/06/18 22:51 06/06/18 22:35 06/06/18 22:00 99 06/06/18 21:46 100 06/06/18 18:10 98 Intake and Output 06/06/18 06/07/18 06/07/18 22:59 06:59 14:59 Intake Total 1500 310 Balance 1500 310 Intake: Intake, IV Titration 1000 Amount Sodium Chloride 0.9% 1, 500 000 ml @ 100 mls/hr IV . Q10H [facility] Rx#:[id number] Sodium Chloride 0.9% 500 500 ml 500 ml @ 999 mls/hr IV .Q31M ONE Rx#:[id number] Oral 500 Blood Product 0 310 Rc As-1 Unit 0 310 [id number] Rc As-1 Unit 0 [id number] Other: # Voids 2 Weight 70.307 kg General Appearance: Alert, cooperative, no distress, appears stated age. Very pale. Neck HEENT: Supple, no lymphadenopathy, no thyroid enlargement, no carotid bruits. Lungs: Clear to auscultation without crackles or wheezes no rhonchi, no deformity. Chest Wall: Chest wall normal expansion with deep inspiration no tenderness and no deformity was found on exam, no costochondral pain or discomfort. Heart: Regular rate and rhythm, S1, S2 normal, no murmur, rub or gallop. Positive mild irregularity with 2/6 ejection systolic murmur. Back: Symmetric, no curvature, ROM normal, no CVA tenderness. Abdomen: Soft, non-tender, bowel sounds active all four quadrants, no masses, no organomegaly. Extremities: Extremities normal, atraumatic, no cyanosis or edema. Pulses: 2+ and symmetric. Skin: Skin color, texture, tugor normal, no rashes or lesions. Neurologic: Alert oriented x3 cranial nerves II through XII intact, no motor deficit, no abnormal balance or gait. Results CBC & Chem 7: 06/06/18 20:52 06/06/18 20:52 Labs: Abnormal Lab Results - Last 24 Hours (Table) 06/06/18 06/06/18 06/06/18 Range/Units 20:52 20:52 20:52 RBC 2.34 L (3.80-5.40) m/uL Hgb 5.1 L* (11.4-16.0) gm/dL Hct 18.5 L* (34.0-46.0) % MCV 79.0 L (80.0-100.0) fL MCH 21.9 L (25.0-35.0) pg MCHC 27.8 L (31.0-37.0) g/dL RDW 21.1 H (11.5-15.5) % APTT 18.1 L (22.0-30.0) sec Glucose 115 H (74-99) mg/dL Phosphorus 4.6 H (2.5-4.5) mg/dL AST 68 H (14-36) U/L Crossmatch 06/06/18 Range/Units 20:52 RBC (3.80-5.40) m/uL Hgb (11.4-16.0) gm/dL Hct (34.0-46.0) % MCV (80.0-100.0) fL MCH (25.0-35.0) pg MCHC (31.0-37.0) g/dL RDW (11.5-15.5) % APTT (22.0-30.0) sec Glucose (74-99) mg/dL Phosphorus (2.5-4.5) mg/dL AST (14-36) U/L Crossmatch See Detail Thrombosis Risk Factor Assmnt - DVT/VTE Prophylaxis DVT/VTE Prophylaxis: Pharmacologic Prophylaxis ordered, Mechanical Prophylaxis ordered - Choose All That Apply Any of the Below Risk Factors Present?: No Other Risk Factors: Yes Each Risk Factor Represents 3 Points: Age 75 years or older Other congenital or acquired thrombophilia - If yes, enter type in comment: No Thrombosis Risk Factor Assessment Total Risk Factor Score: 3 Thrombosis Risk Factor Assessment Level: Moderate Risk Assessment and Plan Plan: 1 acute anemia: Most likely iron deficiency most likely from GI bleed not been able to find despite all the testing and study had an the past and multiple referral to GI and general surgery. Patient will have blood transfusion and iron infusion for now continued see hematology and recommended to repeat her CBC every 2 weeks and repeat iron infusion one of her her level is low. Blood transfusion to be preserved less her hemoglobin is below 7. 2 severe iron deficiency: Combination of GI bleed and atypical iron loss, patient will be on iron infusion regular basis probably between 2-4 weeks. 3 COPD: Has been on DuoNeb and Pulmicort. 4 chronic edema and chronic diastolic congestive heart failure: Has been on Zestril 2.5 mg a day furosemide 40 mg daily and atenolol 100 mg a day. 5 nonsustained A. fib: With pulse rates under control on atenolol patient is not a candidate for any anticoagulation. 6 chronic depression: Has been on BuSpar and citalopram. 7 hypothyroidism: Continue levothyroxine 50 g daily. 8 hypertension will continue atenolol at 10 mg daily and lisinopril 2.5 mg titrated the dose higher if needed. 9 chronic anxiety attacks: Has been on trazodone and reduce alprazolam 2.5 mg daily at bedtime as needed. 10 chronic pain syndrome: Mostly from arthralgia and chronic lower back pain, patient remain on hydrocodone on an as-needed basis. 11 severe GERD/GI prophylaxis: Remain on pantoprazole. 12 history of rheumatoid arthritis: She is on Tylenol derivative product no aggressive anti-inflammatory agent or biological agent this point. 13 valvular heart disease: Mostly mitral regurgitation has been on medical management only. CODE STATUS: Full code. Admit patient to inpatient status for more than 2 nights.
[2018-06-07] MEDS: SODIUM FERRIC GLUCONAT-SUCROSE 125 MG in SODIUM CHLORIDE 0.9% 100 ML IVPB SCH (14:46)
[2018-06-07 18:02] LABS: Anisocytosis Slight; Basophils % (A) 0 %; Eosinophils # (A) 0.1 k/uL (0-0.7); Eosinophils % (A) 2 %; HCT 22.7 % (34.0-46.0); Hypochromasia Marked; Lymphocytes # (A) 0.6 k/uL (1.0-4.8); Lymphocytes % (A) 10 %; MCH 24.7 pg (25.0-35.0); MCHC 29.1 g/dL (31.0-37.0); Mean Platelet Volume 7.3; Monocytes # (A) 0.2 k/uL (0-1.0); Monocytes % (A) 4 %; Neutrophils # (A) 4.5 k/uL (1.3-7.7); Neutrophils % (A) 83 %; Platelet Count 239 k/uL (150-450); Poikilocytosis Marked; RBC 2.68 m/uL (3.80-5.40); RDW 17.9 % (11.5-15.5); WBC 5.4 k/uL (3.8-10.6)
[2018-06-07 18:06] LABS: MCV 84.8 fL (80.0-100.0)
[2018-06-07 18:07] LABS: HGB 6.6 gm/dL (11.4-16.0)
[2018-06-07] MEDS ORDERED: traZODone HCL 100 MG TAB PO SCH (21:00)
[2018-06-07] MEDS: busPIRone HCl 10 MG TAB PO SCH (21:11)
[2018-06-07] MEDS: ALPRAZolam 1 MG TAB PO SCH (21:11)
[2018-06-08] MEDS: oxyCODONE-APAP 7.5-325MG 1 EACH TAB PO SCH ×5 (02:44→22:39)
[2018-06-08] MEDS: SODIUM CHLORIDE 0.9% 1,000 ML IV SCH ×2 (05:33→16:05)
[2018-06-08] MEDS: LEVOTHYROXINE 50 MCG TAB PO SCH ×2 (05:46→05:49)
[2018-06-08] MEDS: SODIUM FERRIC GLUCONAT-SUCROSE 125 MG in SODIUM CHLORIDE 0.9% 100 ML IVPB SCH (09:46)
[2018-06-08] MEDS: busPIRone HCl 10 MG TAB PO SCH ×2 (09:47→22:30)
[2018-06-08] MEDS: CITALOPRAM HYDROBROMIDE 20 MG TAB PO SCH (09:47)
[2018-06-08] MEDS: FUROSEMIDE 40 MG TAB PO SCH (09:47)
[2018-06-08] MEDS: PANTOPRAZOLE 40 MG TABLET PO SCH (09:47)
[2018-06-08 09:48] LABS: Anisocytosis Slight; Basophils % (A) 0 %; Eosinophils # (A) 0.1 k/uL (0-0.7); Eosinophils % (A) 2 %; HCT 23.2 % (34.0-46.0); Hypochromasia Marked; Lymphocytes # (A) 0.5 k/uL (1.0-4.8); Lymphocytes % (A) 11 %; MCH 24.5 pg (25.0-35.0); MCHC 28.4 g/dL (31.0-37.0); MCV 86.5 fL (80.0-100.0); Mean Platelet Volume 7.5; Monocytes # (A) 0.2 k/uL (0-1.0); Monocytes % (A) 5 %; Neutrophils # (A) 3.5 k/uL (1.3-7.7); Neutrophils % (A) 80 %; Platelet Count 231 k/uL (150-450); Poikilocytosis Marked; RBC 2.69 m/uL (3.80-5.40); RDW 17.9 % (11.5-15.5); WBC 4.4 k/uL (3.8-10.6)
[2018-06-08] MEDS: ATENOLOL 50 MG TAB PO SCH (09:50)
[2018-06-08] MEDS: LISINOPRIL 2.5 MG TAB PO SCH (09:50)
[2018-06-08 09:52] LABS: HGB 6.6 gm/dL (11.4-16.0)
[2018-06-08 10:12] LABS: Mixed Population RBC Present
[2018-06-08 10:13] LABS: Polychromasia Present
[2018-06-08] MEDS: oxyCODONE-APAP 7.5-325MG 1 EACH TAB PO PRN (12:36)
--- NOTE | 2018-06-08 12:39 | P.PN ---
Subjective Progress Note Date: 06/08/18 Principal diagnosis: iron deficient anemia In f/u today pt is feeling frustrated as her Hgb after 2 units is still only 6.8. She has received parenteral iron infusions as well. Denies any symptoms or SE post transfusion/infusions. She is fatigued and weak. Denies any visible bleeding Objective - Vital Signs Vital signs: Vital Signs Temp 97.7 F 06/08/18 06:46 Pulse 62 06/08/18 06:46 Resp 16 06/08/18 06:46 BP 90/50 06/08/18 06:46 Pulse Ox 95 06/08/18 06:46 Intake & Output 06/07/18 06/08/18 06/08/18 18:59 06:59 18:59 Intake Total 842 Balance 842 Intake: Oral 222 Blood Product 620 Rc As-1 Unit 310 [id number] Rc As-1 Unit 310 [id number] Other: # Voids 2 2 # Bowel Movements 1 1 - Constitutional General appearance: Present: cooperative, no acute distress, thin - EENT Eyes: Present: anicteric sclerae, EOMI ENT: Present: hearing grossly normal - Respiratory Respiratory: bilateral: CTA - Cardiovascular Heart sounds: normal: S1, S2 Abnormal Heart Sounds: Absent: systolic murmur, diastolic murmur, rub, S3 Gallop , S4 Gallop, click, other - Peripheral edema leg Peripheral Edema: bilateral: None - Gastrointestinal General gastrointestinal: Present: normal bowel sounds, soft - Integumentary Integumentary: Present: pale - Neurologic Neurologic: Present: CNII-XII intact - Musculoskeletal Musculoskeletal: Present: generalized weakness, strength equal bilaterally - Psychiatric Psychiatric: Present: A&O x's 3, appropriate affect, intact judgment & insight - Labs CBC & Chem 7: 06/08/18 08:31 06/06/18 20:52 Labs: Abnormal Lab Results - Last 24 Hours (Table) 06/06/18 06/07/18 06/08/18 Range/Units 20:52 17:52 08:31 RBC 2.68 L 2.69 L (3.80-5.40) m/uL Hgb 6.6 L* D 6.6 L* (11.4-16.0) gm/dL Hct 22.7 L 23.2 L (34.0-46.0) % MCH 24.7 L 24.5 L (25.0-35.0) pg MCHC 29.1 L 28.4 L (31.0-37.0) g/dL RDW 17.9 H 17.9 H (11.5-15.5) % Lymphocytes # 0.6 L 0.5 L (1.0-4.8) k/uL Crossmatch See Detail Assessment and Plan (1) B12 deficiency anemia Narrative/Plan: Cont B12 supplements Current Visit: Yes Status: Chronic Priority: Medium Code(s): D51.9 - VITAMIN B12 DEFICIENCY ANEMIA, UNSPECIFIED SNOMED Code(s): 95994354 (2) Microcytic hypochromic anemia Narrative/Plan: Severe iron deficiency. Pt has work up pending ([facility] labs), all other work up has been reviewed. Plan for now is to treat with transfusions PRN and aggressive iron supplementation. Current Visit: Yes Status: Chronic Priority: High Code(s): D50.9 - IRON DEFICIENCY ANEMIA, UNSPECIFIED SNOMED Code(s): 26403677 (3) Iron deficiency anemia Narrative/Plan: Parenteral iron supplementation being administered Current Visit: Yes Status: Chronic Priority: High Code(s): D50.9 - IRON DEFICIENCY ANEMIA, UNSPECIFIED SNOMED Code(s): 06872227 Plan: Transfuse to Hgb>7. Complete parenteral iron course Pt has f/u in chart for 2 weeks for CBC and transfusion if needed.
[2018-06-08] MEDS ORDERED: CYANOCOBALAMIN 1,000 MCG/ML 1 ML VIAL IM ONE (12:40)
[2018-06-08] MEDS ORDERED: FUROSEMIDE 10 MG/ML 2 ML VIAL IV ONE (17:16)
[2018-06-08] MEDS: ALPRAZolam 1 MG TAB PO SCH (22:29)
[2018-06-08] MEDS: traZODone HCL 100 MG TAB PO SCH (22:30)
[2018-06-09] MEDS: SODIUM CHLORIDE 0.9% 1,000 ML IV SCH ×3 (02:58→22:31)
[2018-06-09] MEDS: oxyCODONE-APAP 7.5-325MG 1 EACH TAB PO SCH (05:49)
[2018-06-09] MEDS ORDERED: oxyCODONE-APAP 7.5-325MG 1 EACH TAB PO PRN (08:00)
[2018-06-09] MEDS: FUROSEMIDE 40 MG TAB PO SCH (08:13)
[2018-06-09] MEDS: PANTOPRAZOLE 40 MG TABLET PO SCH (08:13)
[2018-06-09] MEDS: CITALOPRAM HYDROBROMIDE 20 MG TAB PO SCH (08:13)
[2018-06-09] MEDS: ATENOLOL 50 MG TAB PO SCH (08:13)
[2018-06-09] MEDS: LEVOTHYROXINE 50 MCG TAB PO SCH (08:13)
[2018-06-09] MEDS: busPIRone HCl 10 MG TAB PO SCH ×2 (08:13→22:24)
[2018-06-09] MEDS: oxyCODONE-APAP 7.5-325MG 1 EACH TAB PO PRN ×2 (08:14→22:25)
[2018-06-09] MEDS: LISINOPRIL 2.5 MG TAB PO SCH (08:14)
--- NOTE | 2018-06-09 08:21 | P.PN ---
Subjective Progress Note Date: 06/08/18 77-year-old female one of Dr. Marino patient was seen for the last few years almost on regular basis in the hospital for recurrent anemia with multiple admission for blood transfusion and workup for GI in the last 2 years had EGD and colonoscopy in 2015 in 2017 also had small bowel series ENDOSCOPY THIS PAST YEAR WITH NO MAJOR FINDING. PATIENT CONTINUED TO HAVE SIGNIFICANT DROP IN HER HEMOGLOBIN WITH HEMOGLOBIN RUN DOWN TO 5 and required transfusion. Last time patient had blood transfusion was 3 weeks ago had 1 unit stays in the hospital overnight and end up going home to see Dr. Acuna on regular basis her first appointment with him was on 06/06/2018 her CBC showed hemoglobin 5 patient was referred to [facility] [place] and admitted to have 2 units of blood transfusion and iron infusion 2 in the next 48 hours. 06/08: Patient denies new complaints. She feels a little stronger after transfusion yesterday. HGB 6.6 and another unit of blood will be ordered for today which will total 3. She is receiving second dose Ferrlecit as well. She has been afebrile, HR 50-60s, BP 91/54. Will plan for third dose of iron tomorrow and discharge home most likely tomorrow. Review of Systems CONSTITUTIONAL: no fever, no chills. EYES: No icterus sclerae, no conjunctivitis. EARS, NOSE, MOUTH, THROAT, and FACE: No sore throat, lymphadenopathy, carotid bruits or deformity. RESPIRATORY: Positive shortness of breath cough and wheezes CARDIOVASCULAR: Positive PND orthopnea no angina GASTROINTESTINAL: No Abd pain, Nausea or vomiting, no Diarrhea or constipation, No GI Bleed, no distention or masses. GENITOURINARY: Negative for Hematuria or UTI, no kidney stones. INTEGUMENT/BREAST: Negative for any muscular injury with mild osteoarthritis.. HEMATOLOGIC/LYMPHATIC: Positive anemia with recurrent blood transfusion. MUSCULOSKELTAL: Negative for Myalgia and generalized arthralgia NEURLOGICAL: No LOC, Sz or syncope, blurred vision dizziness or abnormality.. BEHAVIORAL/PSYCH: Negative. ENDOCRINE: Negative. Objective - Vital Signs Vital signs: Vital Signs Temp 97.7 F 06/08/18 06:46 Pulse 62 06/08/18 06:46 Resp 16 06/08/18 06:46 BP 90/50 06/08/18 06:46 Pulse Ox 95 06/08/18 06:46 Intake & Output 06/07/18 06/08/18 06/08/18 18:59 06:59 18:59 Intake Total 842 Balance 842 Intake: Oral 222 Blood Product 620 Rc As-1 Unit 310 [id number] Rc As-1 Unit 310 [id number] Other: # Voids 2 2 # Bowel Movements 1 1 - Exam General Appearance: Alert, cooperative, no distress, appears stated age.Pale. Neck HEENT: Supple, no lymphadenopathy, no thyroid enlargement, no carotid bruits. Lungs: Clear to auscultation without crackles or wheezes no rhonchi, no deformity. Chest Wall: Chest wall normal expansion with deep inspiration no tenderness and no deformity was found on exam, no costochondral pain or discomfort. Heart: Regular rate and rhythm, S1, S2 normal, no murmur, rub or gallop. Positive mild irregularity with 2/6 ejection systolic murmur. Back: Symmetric, no curvature, ROM normal, no CVA tenderness. Abdomen: Soft, non-tender, bowel sounds active all four quadrants, no masses, no organomegaly. Extremities: Extremities normal, atraumatic, no cyanosis or edema. Pulses: 2+ and symmetric. Skin: Skin color, texture, tugor normal, no rashes or lesions. Neurologic: Alert oriented x3 cranial nerves II through XII intact, no motor def icit, no abnormal balance or gait. - Labs CBC & Chem 7: 06/08/18 08:31 06/06/18 20:52 Labs: Abnormal Lab Results - Last 24 Hours (Table) 06/06/18 06/07/18 06/08/18 Range/Units 20:52 17:52 08:31 RBC 2.68 L 2.69 L (3.80-5.40) m/uL Hgb 6.6 L* D 6.6 L* (11.4-16.0) gm/dL Hct 22.7 L 23.2 L (34.0-46.0) % MCH 24.7 L 24.5 L (25.0-35.0) pg MCHC 29.1 L 28.4 L (31.0-37.0) g/dL RDW 17.9 H 17.9 H (11.5-15.5) % Lymphocytes # 0.6 L 0.5 L (1.0-4.8) k/uL Crossmatch See Detail Assessment and Plan Plan: 1 acute anemia secondary to a combination of chronic disease anemia and possible GI bleed. Patient will have blood transfusion and iron infusion for now continued see hematology and recommended to repeat her CBC every 2 weeks and repeat iron infusion one of her her level is low. Blood transfusion to be preserved less her hemoglobin is below 7. 2 severe iron deficiency: Combination of GI bleed and atypical iron loss, patient will be on iron infusion regular basis probably between 2-4 weeks. 3 COPD: Has been on DuoNeb and Pulmicort. 4 chronic edema and chronic diastolic heart failure: Has been on Zestril 2.5 mg a day furosemide 40 mg daily and atenolol 100 mg a day. 5 nonsustained A. fib: With pulse rates under control on atenolol patient is not a candidate for any anticoagulation. 6 chronic depression: Has been on BuSpar and citalopram. 7 hypothyroidism: Continue levothyroxine 50 g daily. 8 hypertension will continue atenolol at 10 mg daily and lisinopril 2.5 mg titrated the dose higher if needed. 9 chronic anxiety attacks: Has been on trazodone and reduce alprazolam 2.5 mg daily at bedtime as needed. 10 chronic pain syndrome: Mostly from arthralgia and chronic lower back pain, patient remain on hydrocodone on an as-needed basis. 11 severe GERD/GI prophylaxis: Remain on pantoprazole. 12 history of rheumatoid arthritis: She is on Tylenol derivative product no aggressive anti-inflammatory agent or biological agent this point. 13 valvular heart disease: Mostly mitral regurgitation has been on medical management only. CODE STATUS: Full code. Home in the next 24 hours Impression and plan of care have been directed as dictated by the signing physician. Domenica Reed nurse practitioner acting as scribe for signing physician.
[2018-06-09 09:54] LABS: Anisocytosis Slight; Basophils # (A) 0.1 k/uL (0-0.2); Basophils % (A) 2 %; Eosinophils # (A) 0.1 k/uL (0-0.7); Eosinophils % (A) 2 %; HCT 26.1 % (34.0-46.0); HGB 7.6 gm/dL (11.4-16.0); Hypochromasia Marked; Lymphocytes # (A) 0.5 k/uL (1.0-4.8); Lymphocytes % (A) 12 %; MCH 24.3 pg (25.0-35.0); MCV 83.8 fL (80.0-100.0); Mean Platelet Volume 7.9; Microcytosis Slight; Monocytes # (A) 0.2 k/uL (0-1.0); Monocytes % (A) 5 %; Neutrophils # (A) 3.5 k/uL (1.3-7.7); Neutrophils % (A) 78 %; Platelet Count 218 k/uL (150-450); Poikilocytosis Marked; RBC 3.11 m/uL (3.80-5.40); RDW 18.6 % (11.5-15.5); WBC 4.4 k/uL (3.8-10.6)
[2018-06-09] MEDS: SODIUM FERRIC GLUCONAT-SUCROSE 125 MG in SODIUM CHLORIDE 0.9% 100 ML IVPB SCH (11:12)
--- NOTE | 2018-06-09 13:56 | P.PN ---
Subjective Progress Note Date: 06/09/18 77-year-old female one of Dr. Marino patient was seen for the last few years almost on regular basis in the hospital for recurrent anemia with multiple admission for blood transfusion and workup for GI in the last 2 years had EGD and colonoscopy in 2015 in 2017 also had small bowel series ENDOSCOPY THIS PAST YEAR WITH NO MAJOR FINDING. PATIENT CONTINUED TO HAVE SIGNIFICANT DROP IN HER HEMOGLOBIN WITH HEMOGLOBIN RUN DOWN TO 5 and required transfusion. Last time patient had blood transfusion was 3 weeks ago had 1 unit stays in the hospital overnight and end up going home to see Dr. Acuna on regular basis her first appointment with him was on 06/06/2018 her CBC showed hemoglobin 5 patient was referred to [facility] [place] and admitted to have 2 units of blood transfusion and iron infusion 2 in the next 48 hours. 06/08: Patient denies new complaints. She feels a little stronger after transfusion yesterday. HGB 6.6 and another unit of blood will be ordered for today which will total 3. She is receiving second dose Ferrlecit as well. She has been afebrile, HR 50-60s, BP 91/54. Will plan for third dose of iron tomorrow and discharge home most likely tomorrow. 06/09: Repeat hemoglobin this morning is 7.6. No obvious bleeding. Recommended patient to have a full GI workup at a later point and also recommend bone marrow biopsy at some point. Plan to monitor overnight and most likely discharge home tomorrow. She is status post 3 units packed RBCs and 3 infusions of Ferrlecit. Review of Systems CONSTITUTIONAL: no fever, no chills. Complains of generalized weakness EYES: No icterus sclerae, no conjunctivitis. EARS, NOSE, MOUTH, THROAT, and FACE: No sore throat, lymphadenopathy, carotid bruits or deformity. RESPIRATORY: Positive shortness of breath cough and wheezes CARDIOVASCULAR: Positive PND orthopnea no angina GASTROINTESTINAL: No Abd pain, Nausea or vomiting, no Diarrhea or constipation, No GI Bleed, no distention or masses. GENITOURINARY: Negative for Hematuria or UTI, no kidney stones. INTEGUMENT/BREAST: Negative for any muscular injury with mild osteoarthritis.. HEMATOLOGIC/LYMPHATIC: Positive anemia with recurrent blood transfusion. MUSCULOSKELTAL: Negative for Myalgia and generalized arthralgia NEURLOGICAL: No LOC, Sz or syncope, blurred vision dizziness or abnormality.. BEHAVIORAL/PSYCH: Negative. ENDOCRINE: Negative. Objective - Vital Signs Vital signs: Vital Signs Temp 97.6 F 06/09/18 07:00 Pulse 59 L 06/09/18 07:00 Resp 16 06/09/18 07:00 BP 104/63 06/09/18 07:00 Pulse Ox 99 06/09/18 07:00 Intake & Output 06/08/18 06/09/18 06/09/18 18:59 06:59 18:59 Intake Total 310 Output Total 400 Balance 310 -400 Intake: Blood Product 310 Rc As-1 Unit 310 [id number] Output: Urine 400 Other: # Voids 2 1 - Exam General Appearance: Alert, cooperative, no distress, appears stated age. Pale. Neck HEENT: Supple, no lymphadenopathy, no thyroid enlargement, no carotid bruits. Lungs: Clear to auscultation without crackles or wheezes no rhonchi, no deformity. Chest Wall: Chest wall normal expansion with deep inspiration no tenderness and no deformity was found on exam, no costochondral pain or discomfort. Heart: Regular rate and rhythm, S1, S2 normal, no murmur, rub or gallop. Positive mild irregularity with 2/6 ejection systolic murmur. Back: Symmetric, no curvature, ROM normal, no CVA tenderness. Abdomen: Soft, non-tender, bowel sounds active all four quadrants, no masses, no organomegaly. Extremities: Extremities normal, atraumatic, no cyanosis or edema. Pulses: 2+ and symmetric. Skin: Skin color, texture, tugor normal, no rashes or lesions. Neurologic: Alert oriented x3 cranial nerves II through XII intact, no motor deficit, no abnormal balance or gait. - Labs CBC & Chem 7: 06/09/18 09:08 06/06/18 20:52 Labs: Abnormal Lab Results - Last 24 Hours (Table) 06/06/18 06/09/18 Range/Units 20:52 09:08 RBC 3.11 L (3.80-5.40) m/uL Hgb 7.6 L (11.4-16.0) gm/dL Hct 26.1 L (34.0-46.0) % MCH 24.3 L (25.0-35.0) pg MCHC 29.0 L (31.0-37.0) g/dL RDW 18.6 H (11.5-15.5) % Lymphocytes # 0.5 L (1.0-4.8) k/uL Crossmatch See Detail Assessment and Plan Plan: 1 acute anemia secondary to a combination of chronic disease anemia and possible GI bleed. Patient will have blood transfusion and iron infusion for now continued see hematology and recommended to repeat her CBC every 2 weeks and repeat iron infusion one of her her level is low. Blood transfusion to be preserved less her hemoglobin is below 7. 2 severe iron deficiency: Combination of GI bleed and atypical iron loss, patient will be on iron infusion regular basis probably between 2-4 weeks. 3 COPD: Has been on DuoNeb and Pulmicort. 4 chronic edema and chronic diastolic heart failure: Has been on Zestril 2.5 mg a day furosemide 40 mg daily and atenolol 100 mg a day. 5 nonsustained A. fib: With pulse rates under control on atenolol patient is not a candidate for any anticoagulation. 6 chronic depression: Has been on BuSpar and citalopram. 7 hypothyroidism: Continue levothyroxine 50 g daily. 8 hypertension will continue atenolol at 10 mg daily and lisinopril 2.5 mg titrated the dose higher if needed. 9 chronic anxiety attacks: Has been on trazodone and reduce alprazolam 2.5 mg daily at bedtime as needed. 10 chronic pain syndrome: Mostly from arthralgia and chronic lower back pain, patient remain on hydrocodone on an as-needed basis. 11 severe GERD/GI prophylaxis: Remain on pantoprazole. 12 history of rheumatoid arthritis: She is on Tylenol derivative product no aggressive anti-inflammatory agent or biological agent this point. 13 valvular heart disease: Mostly mitral regurgitation has been on medical management only. CODE STATUS: Full code. Discharge plan: Home with [facility] Impression and plan of care have been directed as dictated by the signing physician. Domenica Reed nurse practitioner acting as scribe for signing physician.
--- NOTE | 2018-06-09 19:29 | P.PN ---
Subjective Progress Note Date: 06/09/18 Principal diagnosis: iron deficient anemia In follow-up today patient is sitting up at the bedside, in much better spirits , she is feeling stronger. He is status post 3 units of blood as well as 3 doses of IV iron, Hgb 7.6 Objective - Vital Signs Vital signs: Vital Signs Temp 98.1 F 06/09/18 14:28 Pulse 55 L 06/09/18 14:28 Resp 17 06/09/18 14:28 BP 92/59 06/09/18 14:28 Pulse Ox 99 06/09/18 07:00 Intake & Output 06/09/18 06/09/18 06/10/18 06:59 18:59 06:59 Intake Total 1488 Output Total 400 2 Balance -400 1486 Intake: Intake, IV Titration 600 Amount Sodium Chloride 0.9% 1, 600 000 ml @ 100 mls/hr IV . Q10H KACY Rx#:[id number] Oral 888 Output: Urine 400 2 Other: # Voids 1 - Exam Well-developed, well-nourished, normocephalic, atraumatic, anicteric sclera, alert and oriented 4, no acute distress, respirations even and unlabored, no swelling in the lower extremities, strength equal bilaterally, patient is independently ambulatory - Labs CBC & Chem 7: 06/09/18 09:08 06/06/18 20:52 Labs: Abnormal Lab Results - Last 24 Hours (Table) 06/09/18 Range/Units 09:08 RBC 3.11 L (3.80-5.40) m/uL Hgb 7.6 L (11.4-16.0) gm/dL Hct 26.1 L (34.0-46.0) % MCH 24.3 L (25.0-35.0) pg MCHC 29.0 L (31.0-37.0) g/dL RDW 18.6 H (11.5-15.5) % Lymphocytes # 0.5 L (1.0-4.8) k/uL Assessment and Plan (1) B12 deficiency anemia Narrative/Plan: IM B12 given. Next dose will be given 1 month. Current Visit: Yes Status: Chronic Priority: Medium Code(s): D51.9 - VITAMIN B12 DEFICIENCY ANEMIA, UNSPECIFIED SNOMED Code(s): 37754704 (2) Microcytic hypochromic anemia Narrative/Plan: Severe iron deficiency. Pt has work up [facility] labs still pending, all other work up has been reviewed. Plan is to treat with transfusions PRN and aggressive iron supplementation. Patient is status post 3 units of packed red blood cells as well as 3 infusions of parenteral iron with a hemoglobin improvement today to 7.6. Current Visit: Yes Status: Chronic Priority: High Code(s): D50.9 - IRON DEFICIENCY ANEMIA, UNSPECIFIED SNOMED Code(s): 75107828 (3) Iron deficiency anemia Narrative/Plan: Parenteral iron supplementation being administered Current Visit: Yes Status: Chronic Priority: High Code(s): D50.9 - IRON DEFICIENCY ANEMIA, UNSPECIFIED SNOMED Code(s): 87198718 Plan: Transfuse to Hgb>7. Complete parenteral iron course Pt has f/u in chart for 2 weeks for CBC, iron studies and transfusion if needed.
[2018-06-09] MEDS: ALPRAZolam 1 MG TAB PO SCH (22:25)
[2018-06-09] MEDS: traZODone HCL 100 MG TAB PO SCH (22:25)
[2018-06-10 01:21] VITALS: TEMP 97.9
[2018-06-10] MEDS: oxyCODONE-APAP 7.5-325MG 1 EACH TAB PO PRN (03:52)
[2018-06-10 07:04] VITALS: BP 106/54; PULSE 61; RESP 17
[2018-06-10] MEDS: ATENOLOL 50 MG TAB PO SCH (07:05)
[2018-06-10] MEDS: LEVOTHYROXINE 50 MCG TAB PO SCH (07:05)
[2018-06-10] MEDS: busPIRone HCl 10 MG TAB PO SCH (07:05)
[2018-06-10] MEDS: PANTOPRAZOLE 40 MG TABLET PO SCH (07:05)
[2018-06-10] MEDS: CITALOPRAM HYDROBROMIDE 20 MG TAB PO SCH (07:06)
[2018-06-10] MEDS: LISINOPRIL 2.5 MG TAB PO SCH (07:06)
[2018-06-10] MEDS: FUROSEMIDE 40 MG TAB PO SCH (07:06)
[2018-06-10] MEDS: SODIUM CHLORIDE 0.9% 1,000 ML IV SCH (07:07)
[2018-06-10] MEDS: SODIUM FERRIC GLUCONAT-SUCROSE 125 MG in SODIUM CHLORIDE 0.9% 100 ML IVPB SCH (08:36)
[2018-06-10 11:36] LABS: Anisocytosis Slight; Basophils % (A) 1 %; Eosinophils # (A) 0.2 k/uL (0-0.7); Eosinophils % (A) 4 %; HCT 25.4 % (34.0-46.0); HGB 7.5 gm/dL (11.4-16.0); Hypochromasia Marked; Lymphocytes # (A) 0.8 k/uL (1.0-4.8); Lymphocytes % (A) 16 %; MCH 25.5 pg (25.0-35.0); MCHC 29.5 g/dL (31.0-37.0); MCV 86.4 fL (80.0-100.0); Mean Platelet Volume 7.3; Monocytes # (A) 0.3 k/uL (0-1.0); Monocytes % (A) 7 %; Neutrophils # (A) 3.3 k/uL (1.3-7.7); Neutrophils % (A) 71 %; Platelet Count 208 k/uL (150-450); Poikilocytosis Marked; RBC 2.94 m/uL (3.80-5.40); RDW 19.5 % (11.5-15.5); WBC 4.6 k/uL (3.8-10.6)
[2018-06-10 12:06] LABS: Polychromasia Present
[2018-06-10 12:07] LABS: Large Platelets Present; Mixed Population RBC Present
== END 2018-06-10 13:57 | disposition home health service (06) | DRG 378 ==
LOC: EC 18:03 → 4SSUR 20:18 → INTOOBSV 20:18 → OBSVTOIN 06-07 13:54 → INTOOBSV 06-07 13:54
PROVIDERS: ADMIT Internal Medicine Geriatric Medicine; ATTEND Internal Medicine Geriatric Medicine
PROC: 30233N1 Transfusion of Nonautologous Red Blood Cells into Peripheral Vein, Percutaneous Approach (ICD-10-PCS; principal; 2018-06-07)
DX: K92.2 Gastrointestinal hemorrhage, unspecified (principal); I50.32 Chronic diastolic (congestive) heart failure; D50.9 Iron deficiency anemia, unspecified; D51.9 Vitamin B12 deficiency anemia, unspecified; E03.9 Hypothyroidism, unspecified; E78.5 Hyperlipidemia, unspecified; F17.210 Nicotine dependence, cigarettes, uncomplicated; F32.9 Major depressive disorder, single episode, unspecified; F41.1 Generalized anxiety disorder; G89.4 Chronic pain syndrome; I11.0 Hypertensive heart disease with heart failure; I34.1 Nonrheumatic mitral (valve) prolapse; I34.0 Nonrheumatic mitral (valve) insufficiency; I48.91 Unspecified atrial fibrillation; J44.9 Chronic obstructive pulmonary disease, unspecified; K21.9 Gastro-esophageal reflux disease without esophagitis; K59.00 Constipation, unspecified; M06.9 Rheumatoid arthritis, unspecified; Z96.653 Presence of artificial knee joint, bilateral; Z96.643 Presence of artificial hip joint, bilateral; Z96.611 Presence of right artificial shoulder joint; Z96.1 Presence of intraocular lens; Z79.82 Long term (current) use of aspirin; Z79.890 Hormone replacement therapy; Z79.899 Other long term (current) drug therapy; Z80.1 Family history of malignant neoplasm of trachea, bronchus and lung; Z82.3 Family history of stroke; Z82.49 Family history of ischemic heart disease and other diseases of the circulatory system; Z82.5 Family history of asthma and other chronic lower respiratory diseases; Z98.42 Cataract extraction status, left eye; Z98.41 Cataract extraction status, right eye; Z90.710 Acquired absence of both cervix and uterus; Z86.19 Personal history of other infectious and parasitic diseases; Z88.1 Allergy status to other antibiotic agents; Z88.0 Allergy status to penicillin; Z88.2 Allergy status to sulfonamides; Z88.7 Allergy status to serum and vaccine; Z88.8 Allergy status to other drugs, medicaments and biological substances
CPT/HCPCS: 36415; 80053; 83735; 84100; 84484; 85025; 85610; 85730; 86850; 86870; 86880; 86900; 86901; 86902; 86920; 93005; 94640; 99285

== ENCOUNTER 2018-09-06 22:51 | Inpatient (IN) | payer MEDICARE ==
[2018-09-06] MEDS ORDERED: MORPHINE SULFATE 2 MG/ML SYRINGE IVP STA (23:07)
--- NOTE | 2018-09-06 23:28 | ED ---
General Adult HPI - General Chief complaint: Recheck/Abnormal Lab/Rx Stated complaint: SOB Source: EMS, RN notes reviewed Mode of arrival: EMS Limitations: no limitations - History of Present Illness Initial comments: This is a 78-year-old female presents emergency Department with a long-standing history of anemia. Patient states she also has chronic arthritis in her hips and knees. Patient comes in today because she's been feeling short of breath and that usually occurs when she has become more anemic. Patient states her shortness of breath is worse with exertion. Patient denies any chest pain patient denies any palpitations. Patient denies any lightheadedness. Patient denies any near syncopal episode. Patient denies headache patient denies numbness weakness. Patient denies any recent fever chills or cough. Patient denies any black or bloody stool - Related Data Home Medications Medication Instructions Recorded Confirmed Ipratropium-Albuterol Nebulize 3 ml INHALATION RT-QID 03/23/18 09/06/18 [Duoneb 0.5 mg-3 mg/3 ml Soln] Citalopram Hydrobromide [CeleXA] 40 mg PO DAILY 05/12/18 09/06/18 Furosemide [Lasix] 40 mg PO DAILY 05/12/18 09/06/18 ALPRAZolam [Xanax] 2 mg PO Q8H PRN 06/06/18 09/06/18 Atenolol 100 mg PO HS 06/06/18 09/06/18 Levothyroxine Sodium [Synthroid] 50 mcg PO DAILY 06/06/18 09/06/18 traZODone HCL 100 mg PO HS 06/06/18 09/06/18 Potassium Chloride ER [K-Dur 20] 20 meq PO BID 09/06/18 09/06/18 Previous Rx's Medication Instructions Recorded busPIRone HCl [Buspar] 10 mg PO BID #60 tab 03/28/18 Allergies Allergy/AdvReac Type Severity Reaction Status Date / Time adhesive tape Allergy Rash/Hives Verified 09/06/18 23:15 Influenza Virus Vaccines Allergy "MAKES HER Verified 09/06/18 23:15 FEEL SICK" Sulfa (Sulfonamide Allergy Rash/Hives Verified 09/06/18 23:15 Antibiotics) amoxicillin trihydrate AdvReac Diarrhea Verified 09/06/18 23:15 [From Augmentin] ciprofloxacin [From Cipro] AdvReac Unknown Verified 09/06/18 23:15 metronidazole [From Flagyl] AdvReac Unknown Verified 09/06/18 23:15 potassium clavulanate AdvReac Diarrhea Verified 09/06/18 23:15 [From Augmentin] quinidine AdvReac BLOOD CLOTS Verified 09/06/18 23:15 Review of Systems ROS Statement: Those systems with pertinent positive or pertinent negative responses have been documented in the HPI. ROS Other: All systems not noted in ROS Statement are negative. Past Medical History Past Medical History: Atrial Fibrillation, Atrial Flutter, GERD/Reflux, Hyperlipidemia, Hypertension, Mitral Valve Prolapse (MVP), Rheumatoid Arthritis (RA), Thyroid Disorder Additional Past Medical History / Comment(s): OTHER HX: 03/06/14, 03/30/14, 07/03/14, 07/29/14 with CDIFF colitis, HYPOTHYROID, MVP, urinary incontinence, PROLAPSED MITRAL VALVE- NO PROBLEMS FOR 30 YRS.anemia -requiring blood transfusion History of Any Multi-Drug Resistant Organisms: C-DIFF Date of last positivie culture/infection: 2015 MDRO Source:: Stool Past Surgical History: Adenoidectomy, Cholecystectomy, Hysterectomy, Joint Replacement, Orthopedic Surgery, Tonsillectomy Additional Past Surgical History / Comment(s): 02/18/16 total R hip arthroplasty. Other surgical HX: BILATERAL KNEE REPLACEMENT (2003-RIGHT & 2005 - LEFT); LOWER LUMBAR LAMINECTOMYL4-L5 (2007); LEFT HIP REPLACEMENT (2012); RIGHT SHOULDER REPLACEMENT (2008), left total knee arthroplasty revision. Bilateral cataracts with lens implants. FECAL TRASPLANT TX FOR C-DIFF three times.cataracts-lens implants Past Anesthesia/Blood Transfusion Reactions: No Reported Reaction Additional Past Anesthesia/Blood Transfusion Reaction / Comment(s): blood transfusion in past no reactions Past Psychological History: Anxiety, Depression Smoking Status: Current every day smoker Past Alcohol Use History: None Reported Past Drug Use History: None Reported - Past Family History Mother Family Medical History: Cancer Additional Family Medical History / Comment(s): Mother at age 60 with history of emphysema and lung cancer. Father Family Medical History: CVA/TIA Additional Family Medical History / Comment(s): Father at age 74 with problems with his larynx. Sister(s) Family Medical History: Unable to Obtain Daughter(s) Family Medical History: COPD, Myocardial Infarction ([place]) Additional Family Medical History / Comment(s): Mother at age 60 yrs of emphysema/lung CA Son(s) Family Medical History: Myocardial Infarction ([place]) Additional Family Medical History / Comment(s): Father at age 74yrs with "CVA of his larynx" General Exam - General Exam Comments Initial Comments: GENERAL: Patient is well-developed and well-nourished. Patient is nontoxic and well- hydrated and is in mild distress. ENT: Neck is soft and supple. No significant lymphadenopathy is noted. Oropharynx is clear. Moist mucous membranes. Neck has full range of motion without eliciting any pain. EYES: The sclera were anicteric and conjunctiva were pink and moist. Extraocular movements were intact and pupils were equal round and reactive to light. Eyelids were unremarkable. PULMONARY: Unlabored respirations. Good breath sounds bilaterally. No audible rales rhonchi or wheezing was noted. CARDIOVASCULAR: There is a regular rate and rhythm without any murmurs gallops or rubs. ABDOMEN: Soft and nontender with normal bowel sounds. No palpable organomegaly was noted. There is no palpable pulsatile mass. SKIN: Patient's conjunctiva are pale. NEUROLOGIC: Patient is alert and oriented x3. Cranial nerves II through XII are grossly intact. Motor and sensory are also intact. Normal speech, volume and content. Symmetrical smile. MUSCULOSKELETAL: Normal extremities with adequate strength and full range of motion. LYMPHATICS: No significant lymphadenopathy is noted PSYCHIATRIC: Normal psychiatric evaluation. Limitations: no limitations Course Vital Signs 09/06/18 22:54 Temperature 99.0 F Pulse Rate 71 Respiratory 18 Rate Blood Pressure 87/43 O2 Sat by Pulse 100 Oximetry Medical Decision Making - Medical Decision Making EKG shows a normal sinus rhythm at 60 bpm WV interval is 22 QRS is 88 QT interval is 438 QTC is 465 per patient's EKG shows no ST segment elevation however there is T-wave inversions in the 5 and V6 as well as Q waves in II, III, and F aVF. EKG is unchanged from before Chest x-ray shows no acute abnormality other than a hiatal hernia. I spoke with Dr. Weinberg he agreed to admit the patient admitted the patient and I wrote admitting orders. - Lab Data Result diagrams: 09/06/18 23:25 09/06/18 23:25 Lab Results 09/06/18 09/06/18 09/06/18 Range/Units 23:25 23:25 23:25 WBC 14.6 H (3.8-10.6) k/uL RBC 2.53 L (3.80-5.40) m/uL Hgb 6.9 L* D (11.4-16.0) gm/dL Hct 23.2 L (34.0-46.0) % MCV 91.5 (80.0-100.0) fL MCH 27.1 (25.0-35.0) pg MCHC 29.6 L (31.0-37.0) g/dL RDW 17.4 H (11.5-15.5) % Plt Count 272 (150-450) k/uL Neutrophils % 85 % Lymphocytes % 7 % Monocytes % 6 % Eosinophils % 1 % Basophils % 0 % Neutrophils # 12.5 H (1.3-7.7) k/uL Lymphocytes # 1.0 (1.0-4.8) k/uL Monocytes # 0.9 (0-1.0) k/uL Eosinophils # 0.1 (0-0.7) k/uL Basophils # 0.0 (0-0.2) k/uL Hypochromasia Marked Poikilocytosis Moderate Anisocytosis Slight PT (9.0-12.0) sec INR (<1.2) APTT (22.0-30.0) sec Sodium 138 (137-145) mmol/L Potassium 3.3 L (3.5-5.1) mmol/L Chloride 105 (98-107) mmol/L Carbon Dioxide 24 (22-30) mmol/L Anion Gap 9 mmol/L BUN 45 H (7-17) mg/dL Creatinine 0.96 (0.52-1.04) mg/dL Est GFR (CKD-EPI)AfAm 66 (>60 ml/min/1.73 sqM) Est GFR (CKD-EPI)NonAf 57 (>60 ml/min/1.73 sqM) Glucose 139 H (74-99) mg/dL Calcium 8.6 (8.4-10.2) mg/dL Total Bilirubin 0.2 (0.2-1.3) mg/dL AST 23 (14-36) U/L ALT 9 (9-52) U/L Alkaline Phosphatase 68 (38-126) U/L Total Protein 5.7 L (6.3-8.2) g/dL Albumin 3.2 L (3.5-5.0) g/dL Blood Type A Positive Blood Type Recheck No Antibody Screen POSITIVE Spec Expiration Date 09/09/2018 - 232409/06/18 Range/Units 23:25 WBC (3.8-10.6) k/uL RBC (3.80-5.40) m/uL Hgb (11.4-16.0) gm/dL Hct (34.0-46.0) % MCV (80.0-100.0) fL MCH (25.0-35.0) pg MCHC (31.0-37.0) g/dL RDW (11.5-15.5) % Plt Count (150-450) k/uL Neutrophils % % Lymphocytes % % Monocytes % % Eosinophils % % Basophils % % Neutrophils # (1.3-7.7) k/uL Lymphocytes # (1.0-4.8) k/uL Monocytes # (0-1.0) k/uL Eosinophils # (0-0.7) k/uL Basophils # (0-0.2) k/uL Hypochromasia Poikilocytosis Anisocytosis PT 10.4 (9.0-12.0) sec INR 1.0 (<1.2) APTT 19.7 L (22.0-30.0) sec Sodium (137-145) mmol/L Potassium (3.5-5.1) mmol/L Chloride (98-107) mmol/L Carbon Dioxide (22-30) mmol/L Anion Gap mmol/L BUN (7-17) mg/dL Creatinine (0.52-1.04) mg/dL Est GFR (CKD-EPI)AfAm (>60 ml/min/1.73 sqM) Est GFR (CKD-EPI)NonAf (>60 ml/min/1.73 sqM) Glucose (74-99) mg/dL Calcium (8.4-10.2) mg/dL Total Bilirubin (0.2-1.3) mg/dL AST (14-36) U/L ALT (9-52) U/L Alkaline Phosphatase (38-126) U/L Total Protein (6.3-8.2) g/dL Albumin (3.5-5.0) g/dL Blood Type Blood Type Recheck Antibody Screen Spec Expiration Date Disposition Clinical Impression: Anemia, Dyspnea, Leukocytosis Disposition: ADMITTED IP TO THIS HOSP Referrals: Franklyn Marino DO [Primary Care Provider] - 1-2 days Time of Disposition: 01:12
[2018-09-06 23:57] LABS: Albumin 3.2 g/dL (3.5-5.0); Calcium 8.6 mg/dL (8.4-10.2); Potassium 3.3 mmol/L (3.5-5.1); Total Bilirubin 0.2 mg/dL (0.2-1.3); Total Protein 5.7 g/dL (6.3-8.2)
[2018-09-07 00:13] LABS: Anisocytosis Slight; Basophils % (A) 0 %; Eosinophils # (A) 0.1 k/uL (0-0.7); Eosinophils % (A) 1 %; HCT 23.2 % (34.0-46.0); Hypochromasia Marked; Lymphocytes % (A) 7 %; MCH 27.1 pg (25.0-35.0); MCHC 29.6 g/dL (31.0-37.0); MCV 91.5 fL (80.0-100.0); Mean Platelet Volume 7.4; Monocytes # (A) 0.9 k/uL (0-1.0); Monocytes % (A) 6 %; Neutrophils # (A) 12.5 k/uL (1.3-7.7); Neutrophils % (A) 85 %; Platelet Count 272 k/uL (150-450); Poikilocytosis Moderate; RBC 2.53 m/uL (3.80-5.40); RDW 17.4 % (11.5-15.5); WBC 14.6 k/uL (3.8-10.6)
[2018-09-07 00:24] LABS: Prothrombin Time 10.4 sec (9.0-12.0)
[2018-09-07 00:31] LABS: HGB 6.9 gm/dL (11.4-16.0)
[2018-09-07] MEDS ORDERED: SODIUM CHLORIDE 0.9% 500 ML 500 ML IV ONE (00:32)
[2018-09-07 00:56] LABS: Partial Thromboplastin Time 19.7 sec (22.0-30.0)
--- NOTE | 2018-09-07 01:05 | XR ---
EXAM: XR Chest, 2 Views CLINICAL HISTORY: ITS.REASON XR Reason: Difficulty breathing TECHNIQUE: Frontal and lateral views of the chest. COMPARISON: 03/23/18 x-ray IMPRESSION: Cardiomegaly. Large hiatal hernia. No consolidation or pleural effusion.
[2018-09-07] MEDS ORDERED: SODIUM CHLORIDE 0.9% 1,000 ML IV ONE (01:13)
[2018-09-07] MEDS ORDERED: IBUPROFEN 600 MG TAB PO STA (06:36)
[2018-09-07 07:15] LABS: Appearance,Urine Cloudy (Clear); Bacteria,Urine Few /hpf; Bilirubin,Urine Negative (Negative); Blood,Urine Small (Negative); Color,Urine Light Yellow; Glucose,Urine (UA) Negative (Negative); Hyaline Casts,Urine 17 /lpf (0-2); Ketones,Urine Negative (Negative); Leukocyte Esterase,Urine Large (Negative); Mucus,Urine Rare /hpf; Nitrite,Urine Negative (Negative); Protein,Urine Negative (Negative); RBC,Urine 4 /hpf (0-5); Specific Gravity,Urine 1.012 (1.001-1.035); Squamous Epithelial Cell,Urine 1 /hpf (0-4); Urobilinogen,Urine <2.0 mg/dL (<2.0); WBC,Urine 58 /hpf (0-5)
[2018-09-07] MEDS ORDERED: predniSONE 20 MG TAB PO SCH (09:00)
[2018-09-07] MEDS: PANTOPRAZOLE 40 MG TABLET PO SCH (11:44)
[2018-09-07] MEDS: CITALOPRAM HYDROBROMIDE 20 MG TAB PO SCH (11:44)
[2018-09-07] MEDS: LEVOTHYROXINE 50 MCG TAB PO SCH (11:44)
--- NOTE | 2018-09-07 12:00 | P.CONS ---
History of Present Illness - Reason for Consult Consult date: 09/07/18 anemia Requesting physician: Yeison Lawson - Chief Complaint SOB, weakness - History of Present Illness Ms. Trejo is a very pleasant female pt of Dr. Acuna, initially seen in consult 03/16/18, long-standing history of iron deficient anemia diagnosed 2012. Extensive workup, including EGD and colonoscopy in 2014, and then EGD again in 2017, capsule endoscopy, all negative. Oral iron not tolerated due to constipation. Since 2014, documented in this electronic medical record, patient has had 20 units of packed red blood cells, she is currently pending one more. She does have iron studies that show iron and B12 deficiency. Patient continues to have trouble keeping appointments in the office, due to difficulties with transportation and weakness. She has been admitted 3 times this year for severe, symptomatic anemia. She is currently admitted for the same. Hemoglobin is 6.9 on admit. She has been symptomatic for a few days, weakness, SOB with any activity, denies any bleeding. No other c/o on a 14 point ROS Review of Systems 14 point review of systems is negative except as stated in HPI Past Medical History Past Medical History: Atrial Fibrillation, Atrial Flutter, Cancer, Heart Failure, COPD, GERD/Reflux, Hyperlipidemia, Hypertension, Mitral Valve Prolapse (MVP), Osteoarthritis (OA), Rheumatoid Arthritis (RA), Supraventricular Tachycardia (SVT), Thyroid Disorder Additional Past Medical History / Comment(s): Recurrent anemia/transfusions-pt states cause unknown, MVP/mitral regurg, chronic edema lower legs, chronic pain- back/DDD, arthritis bilateral hips/knees, severe gerd, hypothyroid, urinary incontinence, constipation, cdiff colitis, varicosities, seasonal allergies, skin cancer with removals History of Any Multi-Drug Resistant Organisms: C-DIFF Year Discovered:: 2016 MDRO Source:: Stool Past Surgical History: Adenoidectomy, Cholecystectomy, Hysterectomy, Joint Replacement, Orthopedic Surgery, Tonsillectomy Additional Past Surgical History / Comment(s): Fecal implants x 3, bilateral total hip arthroplasties, bilateral total knee arthroplasties with L knee revision, lumbar spine surgery x2, R shoulder hemiarthroplasty, bilateral cataracts/lens implants, skin cancer removals, colonoscopy Past Anesthesia/Blood Transfusion Reactions: No Reported Reaction Additional Past Anesthesia/Blood Transfusion Reaction / Comm: blood transfusion in past no reactions Smoking Status: Light tobacco smoker - Past Family History Mother Family Medical History: Cancer Additional Family Medical History / Comment(s): Mother at age 60 with history of emphysema and lung cancer. Father Family Medical History: CVA/TIA Additional Family Medical History / Comment(s): Father at age 74 with problems with his larynx. Sister(s) Family Medical History: Unable to Obtain Daughter(s) Family Medical History: COPD, Myocardial Infarction ([place]) Additional Family Medical History / Comment(s): Mother at age 60 yrs of emphysema/lung CA Son(s) Family Medical History: Myocardial Infarction ([place]) Additional Family Medical History / Comment(s): Father at age 74yrs with "CVA of his larynx" Medications and Allergies Home Medications Medication Instructions Recorded Confirmed Type Ipratropium-Albuterol Nebulize 3 ml INHALATION RT-QID 03/23/18 09/06/18 History [Duoneb 0.5 mg-3 mg/3 ml Soln] busPIRone HCl [Buspar] 10 mg PO BID #60 tab 03/28/18 09/06/18 Rx Citalopram Hydrobromide [CeleXA] 40 mg PO DAILY 05/12/18 09/06/18 History Furosemide [Lasix] 40 mg PO DAILY 05/12/18 09/06/18 History ALPRAZolam [Xanax] 2 mg PO Q8H PRN 06/06/18 09/06/18 History Atenolol 100 mg PO HS 06/06/18 09/06/18 History Levothyroxine Sodium [Synthroid] 50 mcg PO DAILY 06/06/18 09/06/18 History traZODone HCL 100 mg PO HS 06/06/18 09/06/18 History Potassium Chloride ER [K-Dur 20] 20 meq PO BID 09/06/18 09/06/18 History Allergies Allergy/AdvReac Type Severity Reaction Status Date / Time adhesive tape Allergy Rash/Hives Verified 09/06/18 23:15 Influenza Virus Vaccines Allergy "MAKES HER Verified 09/06/18 23:15 FEEL SICK" Sulfa (Sulfonamide Allergy Rash/Hives Verified 09/06/18 23:15 Antibiotics) amoxicillin trihydrate AdvReac Diarrhea Verified 09/06/18 23:15 [From Augmentin] ciprofloxacin [From Cipro] AdvReac Unknown Verified 09/06/18 23:15 metronidazole [From Flagyl] AdvReac Unknown Verified 09/06/18 23:15 potassium clavulanate AdvReac Diarrhea Verified 09/06/18 23:15 [From Augmentin] quinidine AdvReac BLOOD CLOTS Verified 09/06/18 23:15 Physical Exam Vitals: Vital Signs Temp Pulse Pulse Resp BP BP Pulse Ox 09/07/18 10:05 97.9 F 69 19 92/50 100 09/07/18 09:03 98 F 68 20 94/50 100 09/07/18 07:27 97.8 F 66 20 95/44 100 09/07/18 06:33 68 18 92/40 100 09/07/18 05:30 66 18 96/47 100 09/07/18 03:55 67 18 93/41 97 09/06/18 22:54 99.0 F 71 18 87/43 100 Intake and Output 09/06/18 09/07/18 09/07/18 22:59 06:59 14:59 Other: Weight 81.647 kg - Constitutional General appearance: cooperative, no acute distress, thin - EENT Eyes: anicteric sclerae, EOMI, normal appearance ENT: hearing grossly normal, normal oropharynx - Neck Neck: no lymphadenopathy - Respiratory Respiratory: bilateral: diminished - Cardiovascular Rhythm: regular Heart sounds: normal: S1, S2 Abnormal Heart Sounds: no systolic murmur, no diastolic murmur, no rub, no S3 Gallop, no S4 Gallop, no click, no other leg Peripheral Edema: bilateral: None - Gastrointestinal General gastrointestinal: no absent bowel sounds, no decreased bowel sounds, no distended, no hepatomegaly, no hyperactive bowel sounds, normal bowel sounds, no organomegaly, no rigid, no scaphoid, soft, no splenomegaly, no tenderness, no umbilical hernia, no ventral hernia - Integumentary Integumentary: pale - Neurologic Neurologic: CNII-XII intact - Musculoskeletal Musculoskeletal: generalized weakness, strength equal bilaterally - Psychiatric Psychiatric: A&O x's 3, appropriate affect, intact judgment & insight Results CBC & Chem 7: 09/06/18 23:25 09/06/18 23:25 Labs: Abnormal Lab Results - Last 24 Hours (Table) 09/06/18 09/06/18 09/06/18 Range/Units 23:25 23:25 23:25 WBC 14.6 H (3.8-10.6) k/uL RBC 2.53 L (3.80-5.40) m/uL Hgb 6.9 L* D (11.4-16.0) gm/dL Hct 23.2 L (34.0-46.0) % MCHC 29.6 L (31.0-37.0) g/dL RDW 17.4 H (11.5-15.5) % Neutrophils # 12.5 H (1.3-7.7) k/uL APTT 19.7 L (22.0-30.0) sec Potassium 3.3 L (3.5-5.1) mmol/L BUN 45 H (7-17) mg/dL Glucose 139 H (74-99) mg/dL Total Protein 5.7 L (6.3-8.2) g/dL Albumin 3.2 L (3.5-5.0) g/dL Urine Appearance (Clear) Urine Blood (Negative) Ur Leukocyte Esterase (Negative) Urine WBC (0-5) /hpf Urine WBC Clumps (None) /hpf Urine Bacteria (None) /hpf Hyaline Casts (0-2) /lpf Urine Mucus (None) /hpf 09/07/18 Range/Units 02:43 WBC (3.8-10.6) k/uL RBC (3.80-5.40) m/uL Hgb (11.4-16.0) gm/dL Hct (34.0-46.0) % MCHC (31.0-37.0) g/dL RDW (11.5-15.5) % Neutrophils # (1.3-7.7) k/uL APTT (22.0-30.0) sec Potassium (3.5-5.1) mmol/L BUN (7-17) mg/dL Glucose (74-99) mg/dL Total Protein (6.3-8.2) g/dL Albumin (3.5-5.0) g/dL Urine Appearance Cloudy H (Clear) Urine Blood Small H (Negative) Ur Leukocyte Esterase Large H (Negative) Urine WBC 58 H (0-5) /hpf Urine WBC Clumps Rare H (None) /hpf Urine Bacteria Few H (None) /hpf Hyaline Casts 17 H (0-2) /lpf Urine Mucus Rare H (None) /hpf Assessment and Plan (1) B12 deficiency anemia Current Visit: No Status: Chronic Priority: Medium Code(s): D51.9 - VITAMIN B12 DEFICIENCY ANEMIA, UNSPECIFIED SNOMED Code(s): 15911254 (2) Iron deficiency anemia Current Visit: Yes Status: Chronic Priority: Medium Code(s): D50.9 - IRON DEFICIENCY ANEMIA, UNSPECIFIED SNOMED Code(s): 47218651 Plan: Patient has been typed and cross with plans for transfusion of 1 unit of packed red blood cells. Patient does have antibodies. Have requested iron studies to be performed on blood collected prior to blood transfusion. Patient will be supplemented if appropriate. Will check when last B12 was given to patient, it is given to her monthly in the office.
[2018-09-07] MEDS: busPIRone HCl 10 MG TAB PO SCH ×2 (12:54→20:35)
[2018-09-07] MEDS: HYDROcodone/APAP 5-325MG 1 EACH TAB PO PRN ×2 (13:58→20:34)
--- NOTE | 2018-09-07 15:06 | P.HPIM ---
History of Present Illness H&P Date: 09/07/18 This is a 78-year-old female one of Dr. Marino's patients, past medical history of hypertension, hypertensive cardiovascular disease, mitral valve prolapse, supraventricular tachycardia, rheumatoid arthritis, GERD, COPD, and recurrent C. diff colitis. 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 The patient has had multiple hospitalizations regarding anemia with hemoglobin as low as 4.8 and followed by GI and oncology with plan for transfusions/iron infusions as an outpatient. She has not had any recent recurrence of C. difficile colitis. Her most recent hospitalization was in May which time she was treated for acute anemia secondary to chronic disease and possible GI bleed and she was transfused for a total of 3 units of packed RBCs and received Ferrlecit as well. She also received 1 dose of vitamin B12 and was followed by oncology. Patient complains of shortness of breath that is worse with exertion. No chest pain or palpitations. No lightheadedness and no syncopal episodes. No fever or chills, no cough, no headache no numbness or weakness. Patient denies any black or bloody stools. Patient is complaining of pain in her hips and knees and states she is normally on Percocet but has been out for the past 10 days. She also states that she is was on an ER stretcher which made things worse. Patient states she has been following with Dr. Acuna every month and hemoglobin was up to 12 and then approximately one and half weeks later dropped down to 8. She last saw him 2 weeks ago and has only received 1 dose of Ferrlecit. She denies any iron transfusions for 4 months. Patient presented to [facility] emergency center for evaluation. Patient was afebrile, initial blood pressure 87/43, hemoglobin 6.9, white count 14.6, platelet count 272. Sodium 138, potassium 3.3, chloride 105, CO2 24, BUN 45 and creatinine 0.96, blood sugar 139. PT 1.0. Chest x-ray showed no acute abnormality other than a hiatal hernia. EKG was a sinus rhythm in the 60s without ST elevation. T-wave inversion and V5 V6 and Q waves in 23 and aVF. EKG was unchanged from prior. The patient has been ordered for 1 unit packed RBC transfusion but due to antibodies this is delayed. Oncology is on consult and has ordered iron studies and B12 level. Review of Systems All systems: negative Constitutional: Reports fatigue, Reports weakness, Denies anorexia, Denies chills, Denies fever, Denies weight loss Eyes: denies blurred vision, denies pain Ears, nose, mouth and throat: Denies dysphagia, Denies headache, Denies nasal congestion, Denies nasal discharge, Denies sore throat, Denies vertigo Cardiovascular: Reports decreased exercise tolerance, Reports dyspnea on exertio n, Denies chest pain, Denies edema, Denies lightheadedness, Denies palpitations, Denies shortness of breath, Denies syncope Respiratory: Denies cough, Denies cough with sputum, Denies dyspnea, Denies excessive sputum, Denies hemoptysis, Denies home oxygen, Denies wheezing Gastrointestinal: Denies abdominal pain, Denies diarrhea, Denies hematemesis, Denies loss of appetite, Denies melena, Denies nausea, Denies vomiting Genitourinary: Denies dysuria, Denies hematuria Musculoskeletal: Denies frequent falls, Denies gait dysfunction, Denies muscle weakness, Denies myalgias Integumentary: Denies pruritus, Denies rash, Denies wounds Neurological: Denies change in mentation, Denies change in speech, Denies gait dysfunction, Denies head injury, Denies headaches, Denies numbness, Denies seizures, Denies weakness Psychiatric: Denies anxiety, Denies depression Endocrine: Denies fatigue, Denies weight change Past Medical History Past Medical History: Atrial Fibrillation, Atrial Flutter, GERD/Reflux, Hyperlipidemia, Hypertension, Mitral Valve Prolapse (MVP), Rheumatoid Arthritis (RA), Thyroid Disorder Additional Past Medical History / Comment(s): OTHER HX: 03/06/14, 03/30/14, 07/03/14, 07/29/14 with CDIFF colitis, HYPOTHYROID, MVP, urinary incontinence, PROLAPSED MITRAL VALVE- NO PROBLEMS FOR 30 YRS.anemia -requiring blood trans fusion History of Any Multi-Drug Resistant Organisms: C-DIFF Date of last positivie culture/infection: 2015 MDRO Source:: Stool Past Surgical History: Adenoidectomy, Cholecystectomy, Hysterectomy, Joint Replacement, Orthopedic Surgery, Tonsillectomy Additional Past Surgical History / Comment(s): 02/18/16 total R hip arthroplasty. Other surgical HX: BILATERAL KNEE REPLACEMENT (2003-RIGHT & 2006 - LEFT); LOWER LUMBAR LAMINECTOMYL4-L5 (2007); LEFT HIP REPLACEMENT (2012); RIGHT SHOULDER REPLACEMENT (2008), left total knee arthroplasty revision. Bilateral cataracts with lens implants. FECAL TRASPLANT TX FOR C-DIFF three times.cataracts-lens implants Past Anesthesia/Blood Transfusion Reactions: No Reported Reaction Additional Past Anesthesia/Blood Transfusion Reaction / Comment(s): blood transfusion in past no reactions Past Psychological History: Anxiety, Depression Additional Psychological History / Comment(s): pt lives in own home w/roommate, SHE IS A . STILL DRIVES, has an electric scooter currently not working so uses rollator. Smoking Status: Current every day smoker Past Alcohol Use History: None Reported Additional Past Alcohol Use History / Comment(s): Patient has smoked since 195- 5 cig per day and stated she has no intention of quitting No alcohol use or abuse. No street drug use marijuana or medical marijuana use. Past Drug Use History: None Reported - Past Family History Mother Family Medical History: Cancer Additional Family Medical History / Comment(s): Mother at age 60 with history of emphysema and lung cancer. Father Family Medical History: CVA/TIA Additional Family Medical History / Comment(s): Father at age 74 with problems with his larynx. Sister(s) Family Medical History: Unable to Obtain Daughter(s) Family Medical History: COPD, Myocardial Infarction ([place]) Additional Family Medical History / Comment(s): Mother at age 60 yrs of emphysema/lung CA Son(s) Family Medical History: Myocardial Infarction ([place]) Additional Family Medical History / Comment(s): Father at age 74yrs with "CVA of his larynx" Medications and Allergies Home Medications Medication Instructions Recorded Confirmed Type Ipratropium-Albuterol Nebulize 3 ml INHALATION RT-QID 03/23/18 09/06/18 History [Duoneb 0.5 mg-3 mg/3 ml Soln] busPIRone HCl [Buspar] 10 mg PO BID #60 tab 03/28/18 09/06/18 Rx Citalopram Hydrobromide [CeleXA] 40 mg PO DAILY 05/12/18 09/06/18 History Furosemide [Lasix] 40 mg PO DAILY 05/12/18 09/06/18 History ALPRAZolam [Xanax] 2 mg PO Q8H PRN 06/06/18 09/06/18 History Atenolol 100 mg PO HS 06/06/18 09/06/18 History Levothyroxine Sodium [Synthroid] 50 mcg PO DAILY 06/06/18 09/06/18 History traZODone HCL 100 mg PO HS 06/06/18 09/06/18 History Potassium Chloride ER [K-Dur 20] 20 meq PO BID 09/06/18 09/06/18 History Allergies Allergy/AdvReac Type Severity Reaction Status Date / Time adhesive tape Allergy Rash/Hives Verified 09/06/18 23:15 Influenza Virus Vaccines Allergy "MAKES HER Verified 09/06/18 23:15 FEEL SICK" Sulfa (Sulfonamide Allergy Rash/Hives Verified 09/06/18 23:15 Antibiotics) amoxicillin trihydrate AdvReac Diarrhea Verified 09/06/18 23:15 [From Augmentin] ciprofloxacin [From Cipro] AdvReac Unknown Verified 09/06/18 23:15 metronidazole [From Flagyl] AdvReac Unknown Verified 09/06/18 23:15 potassium clavulanate AdvReac Diarrhea Verified 09/06/18 23:15 [From Augmentin] quinidine AdvReac BLOOD CLOTS Verified 09/06/18 23:15 Physical Exam Vitals: Vital Signs Temp Pulse Resp BP Pulse Ox 09/07/18 07:27 97.8 F 66 20 95/44 100 09/07/18 06:33 68 18 92/40 100 09/07/18 05:30 66 18 96/47 100 09/07/18 03:55 67 18 93/41 97 09/06/18 22:54 99.0 F 71 18 87/43 100 Intake and Output 09/06/18 09/07/18 09/07/18 22:59 06:59 14:59 Other: Weight 81.647 kg General appearance: average body habitus, no acute distress - EENT Eyes: anicteric sclerae, EOMI, PERRLA, no ptosis, no scleral icterus, normal appearance ENT: hearing grossly normal, NA/AT, normal oropharynx, no thrush Ears: bilateral: bulging - Neck Neck: no lymphadenopathy, normal ROM, no rigidity, no stridor, no thyromegaly Carotids: bilateral: upstroke normal Thyroid: bilateral: normal size - Respiratory Respiratory: bilateral: diminished, negative: dullness, rales, rhonchi, wheezing, prolonged expiration, prolonged inspiration - Cardiovascular Rhythm: regular Heart sounds: normal: S1, S2 Abnormal Heart Sounds: systolic murmur, no S3 Gallop - Gastrointestinal General gastrointestinal: normal bowel sounds, soft, no splenomegaly, no tenderness, no umbilical hernia - Integumentary Integumentary: normal, normal turgor - Neurologic Neurologic: CNII-XII intact - Musculoskeletal Musculoskeletal: generalized weakness, strength equal bilaterally - Psychiatric Psychiatric: A&O x's 3, appropriate affect, intact judgment & insight Results CBC & Chem 7: 09/06/18 23:25 09/06/18 23:25 Labs: Abnormal Lab Results - Last 24 Hours (Table) 09/06/18 09/06/18 09/06/18 Range/Units 23:25 23:25 23:25 WBC 14.6 H (3.8-10.6) k/uL RBC 2.53 L (3.80-5.40) m/uL Hgb 6.9 L* D (11.4-16.0) gm/dL Hct 23.2 L (34.0-46.0) % MCHC 29.6 L (31.0-37.0) g/dL RDW 17.4 H (11.5-15.5) % Neutrophils # 12.5 H (1.3-7.7) k/uL APTT 19.7 L (22.0-30.0) sec Potassium 3.3 L (3.5-5.1) mmol/L BUN 45 H (7-17) mg/dL Glucose 139 H (74-99) mg/dL Total Protein 5.7 L (6.3-8.2) g/dL Albumin 3.2 L (3.5-5.0) g/dL Urine Appearance (Clear) Urine Blood (Negative) Ur Leukocyte Esterase (Negative) Urine WBC (0-5) /hpf Urine WBC Clumps (None) /hpf Urine Bacteria (None) /hpf Hyaline Casts (0-2) /lpf Urine Mucus (None) /hpf 09/07/18 Range/Units 02:43 WBC (3.8-10.6) k/uL RBC (3.80-5.40) m/uL Hgb (11.4-16.0) gm/dL Hct (34.0-46.0) % MCHC (31.0-37.0) g/dL RDW (11.5-15.5) % Neutrophils # (1.3-7.7) k/uL APTT (22.0-30.0) sec Potassium (3.5-5.1) mmol/L BUN (7-17) mg/dL Glucose (74-99) mg/dL Total Protein (6.3-8.2) g/dL Albumin (3.5-5.0) g/dL Urine Appearance Cloudy H (Clear) Urine Blood Small H (Negative) Ur Leukocyte Esterase Large H (Negative) Urine WBC 58 H (0-5) /hpf Urine WBC Clumps Rare H (None) /hpf Urine Bacteria Few H (None) /hpf Hyaline Casts 17 H (0-2) /lpf Urine Mucus Rare H (None) /hpf Thrombosis Risk Factor Assmnt - DVT/VTE Prophylaxis DVT/VTE Prophylaxis: Mechanical Prophylaxis ordered Assessment and Plan Plan: 1. Dyspnea on exertion secondary to anemia. Repeat CBC every 6 hours 2, then daily. Transfuse 1 unit of packed RBCs. Oncology consult appreciated. Iron studies and B12 ordered. 2. Acute anemia with history of anemia of chronic disease. No signs of bleeding. 3. History of C.Difficile colitis status post fecal transplant at [facility]. Monitor closely. Avoid antibiotics. 4. History of SVT. Stable. Continue atenolol 100 mg at bedtime. 5. Hypertension and hypertensive cardiovascular disease. Continue atenolol. 6. GERD. Continue Protonix 40 mg daily. 7. Rheumatoid arthritis. Stable. 8. Hypothyroidism. Continue levothyroxine 50 MCG daily 9. Generalized anxiety disorder. Continue Xanax 2 mg every 8 hours as needed 10. Recurrent depression. Continue BuSpar 10 mg twice daily, Celexa 40 mg daily. 11. DVT prophylaxis. SCDs and TIMOTEO hose 12. GI prophylaxis. Protonix 40 mg daily. 13. Chronic back pain. [place] 5/325 1 every 6 hours as needed. Patient will be admitted to the hospital for a minimum of 2 night stay. Discharge plan: Most likely return home Impression and plan of care have been directed as dictated by the signing physician. Domenica Reed nurse practitioner acting as scribe for signing physician.
[2018-09-07 17:04] LABS: Iron Saturation 87.17 (12.00-45.00)
[2018-09-07] MEDS: SODIUM CHLORIDE 0.9% 1,000 ML IV SCH (20:01)
[2018-09-07] MEDS: ATENOLOL 50 MG TAB PO SCH (20:34)
[2018-09-07] MEDS: traZODone HCL 100 MG TAB PO SCH (20:35)
[2018-09-08] MEDS: ACETAMINOPHEN TAB 325 MG TAB PO PRN (00:17)
[2018-09-08] MEDS: ALPRAZolam 1 MG TAB PO PRN ×2 (00:18→21:46)
[2018-09-08] MEDS: HYDROcodone/APAP 5-325MG 1 EACH TAB PO PRN ×4 (01:55→21:47)
[2018-09-08] MEDS: LEVOTHYROXINE 50 MCG TAB PO SCH (05:39)
[2018-09-08] MEDS: CITALOPRAM HYDROBROMIDE 20 MG TAB PO SCH (08:19)
[2018-09-08] MEDS: PANTOPRAZOLE 40 MG TABLET PO SCH (08:21)
[2018-09-08] MEDS: busPIRone HCl 10 MG TAB PO SCH ×2 (08:26→21:48)
[2018-09-08 10:12] LABS: ALT 13 U/L (9-52); AST 20 U/L (14-36); African American GFR (CKD) >90 (>60 ml/min/1.73 sqM); Albumin 2.5 g/dL (3.5-5.0); Alkaline Phosphatase 52 U/L (38-126); Anion Gap 3 mmol/L; Blood Urea Nitrogen 18 mg/dL (7-17); Carbon Dioxide 23 mmol/L (22-30); Chloride 112 mmol/L (98-107); Glucose 136 mg/dL (74-99); Potassium 3.6 mmol/L (3.5-5.1); Sodium 138 mmol/L (137-145); Total Bilirubin 0.3 mg/dL (0.2-1.3); Total Protein 4.7 g/dL (6.3-8.2)
[2018-09-08 10:14] LABS: Anisocytosis Slight; Hypochromasia Marked; MCH 28.1 pg (25.0-35.0); MCHC 29.9 g/dL (31.0-37.0); MCV 94.1 fL (80.0-100.0); Mean Platelet Volume 7.8; Platelet Count 201 k/uL (150-450); Poikilocytosis Moderate; RDW 16.8 % (11.5-15.5); WBC 8.2 k/uL (3.8-10.6)
[2018-09-08 10:31] LABS: HGB 5.6 gm/dL (11.4-16.0)
[2018-09-08 10:32] LABS: HCT 18.8 % (34.0-46.0)
[2018-09-08] MEDS ORDERED: FUROSEMIDE 10 MG/ML 2 ML VIAL IV PRN (10:33)
[2018-09-08] MEDS ORDERED: SODIUM CHLORIDE 0.9% 500 ML 500 ML IV ONE (12:34)
--- NOTE | 2018-09-08 13:28 | P.PN ---
Subjective Progress Note Date: 09/08/18 This is a 78-year-old female one of Dr. Marino's patients, past medical history of hypertension, hypertensive cardiovascular disease, mitral valve prolapse, supraventricular tachycardia, rheumatoid arthritis, GERD, COPD, and recurrent C. diff colitis. 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 diff at [facility]. The patient has had multiple hospitalizations regarding anemia with hemoglobin as low as 4.8 and followed by GI and oncology with plan for transfusions/iron infusions as an outpatient. She has not had any recent recurrence of C. difficile colitis. Her most recent hospitalization was in May which time she was treated for acute anemia secondary to chronic disease and possible GI bleed and she was transfused for a total of 3 units of packed RBCs and received Ferrlecit as well. She also received 1 dose of vitamin B12 and was followed by oncology. Patient complains of shortness of breath that is worse with exertion. No chest pain or palpitations. No lightheadedness and no syncopal episodes. No fever or chills, no cough, no headache no numbness or weakness. Patient denies any black or bloody stools. Patient is complaining of pain in her hips and knees and states she is normally on Percocet but has been out for the past 10 days. She also states that she is was on an ER stretcher which made things worse. Patient states she has been following with Dr. Acuna every month and hemoglobin was up to 12 and then approximately one and half we eks later dropped down to 8. She last saw him 2 weeks ago and has only received 1 dose of Ferrlecit. She denies any iron transfusions for 4 months. Patient presented to [facility] emergency center for evaluation. Patient was afebrile, initial blood pressure 87/43, hemoglobin 6.9, white count 14.6, platelet count 272. Sodium 138, potassium 3.3, chloride 105, CO2 24, BUN 45 and creatinine 0.96, blood sugar 139. PT 1.0. Chest x-ray showed no acute abnormality other than a hiatal hernia. EKG was a sinus rhythm in the 60s without ST elevation. T-wave inversion and V5 V6 and Q waves in 23 and aVF. EKG was unchanged from prior. The patient has been ordered for 1 unit packed RBC transfusion but due to antibodies this is delayed. Oncology is on consult and has ordered iron studies and B12 level. 09/08: Patient is status post transfusion 1 unit packed RBCs and repeat he moglobin this morning is 5.6 and she has been ordered for 2 units of packed RBCs. Potassium is 3.6, chloride 112, sodium 138, BUN 18 and creatinine 0.72. Blood pressure has been on the lower side and fluid bolus of 500 ML's given. Currently blood pressure is 93/54. Patient is complaining of a lightheadedness. She denies any chest pain or shortness of breath. Telemetry has been added. Patient has been afebrile, heart rate 68, blood pressure 88/54, pulse ox 90% on 2 L nasal cannula. Objective - Vital Signs Vital signs: Vital Signs Temp 98.2 F 09/08/18 05:00 Pulse 68 09/08/18 05:00 Resp 16 09/08/18 05:00 BP 88/54 09/08/18 05:00 Pulse Ox 98 09/08/18 05:00 Intake & Output 09/07/18 09/08/18 09/08/18 18:59 06:59 18:59 Intake Total 1100 1510 Balance 1100 1510 Intake: Intake, IV Titration 300 300 Amount Sodium Chloride 0.9% 1, 300 000 ml @ 75 mls/hr IV . [id number] ONE Rx#:[id number] Sodium Chloride 0.9% 1, 300 000 ml @ 75 mls/hr IV . [id number] [facility] Rx#:[id number] Oral 800 590 Blood Product 0 620 Rc As-1 Unit 0 310 [id number] Other: Voiding Method Toilet Toilet # Voids 2 2 - Exam Review of Systems Constitutional: Reports fatigue, Reports weakness, Denies anorexia, Denies chills, Denies fever, Denies weight loss Eyes: denies blurred vision, denies pain Ears, nose, mouth and throat: Denies dysphagia, Denies headache, Denies nasal congestion, Denies nasal discharge, Denies sore throat, Denies vertigo Cardiovascular: Reports decreased exercise tolerance, Reports dyspnea on exertion, Denies chest pain, Denies edema, reports lightheadedness, Denies palpitations, Denies shortness of breath, Denies syncope Respiratory: Denies cough, Denies cough with sputum, Denies dyspnea, Denies excessive sputum, Denies hemoptysis, Denies home oxygen, Denies wheezing Gastrointestinal: Denies abdominal pain, Denies diarrhea, Denies hematemesis, Denies loss of appetite, Denies melena, Denies nausea, Denies vomiting Genitourinary: Denies dysuria, Denies hematuria Musculoskeletal: Denies frequent falls, Denies gait dysfunction, Denies muscle weakness, Denies myalgias Integumentary: Denies pruritus, Denies rash, Denies wounds Neurological: Denies change in mentation, Denies change in speech, Denies gait dysfunction, Denies head injury, Denies headaches, Denies numbness, Denies seizures, Denies weakness Psychiatric: Denies anxiety, Denies depression Endocrine: Denies fatigue, Denies weight change General appearance: cooperative, no acute distress, thin, patient is resting comfortably in bed. - EENT Eyes: anicteric sclerae, EOMI, normal appearance ENT: hearing grossly normal, normal oropharynx - Neck Neck: no lymphadenopathy - Respiratory Respiratory: bilateral: diminished - Cardiovascular Rhythm: regular Heart sounds: normal: S1, S2 Abnormal Heart Sounds: no systolic murmur, no diastolic murmur, no rub, no S3 Gallop, no S4 Gallop, no click, no other leg Peripheral Edema: bilateral: None - Gastrointestinal General gastrointestinal: no absent bowel sounds, no decreased bowel sounds, no distended, no hepatomegaly, no hyperactive bowel sounds, normal bowel sounds, no organomegaly, no rigid, no scaphoid, soft, no splenomegaly, no tenderness, no umbilical hernia, no ventral hernia - Integumentary Integumentary: pale - Neurologic Neurologic: CNII-XII intact - Musculoskeletal Musculoskeletal: generalized weakness, strength equal bilaterally - Psychiatric Psychiatric: A&O x's 3, appropriate affect, intact judgment & insight - Labs CBC & Chem 7: 09/08/18 09:03 09/08/18 09:03 Labs: Abnormal Lab Results - Last 24 Hours (Table) 09/06/18 09/06/18 Range/Units 23:25 23:25 Iron 231 H (50-170) ug/dL Iron Saturation 87.17 H (12.00-45.00) Crossmatch See Detail Assessment and Plan Plan: 1. Dyspnea on exertion secondary to anemia. Repeat CBC every 6 hours 2, then daily. Transfuse 2 unit of packed RBCs for total of 3 units. Oncology consult appreciated. Iron studies and B12 ordered. 2. Acute anemia with history of anemia of chronic disease. No signs of bleeding. 3. History of C.Difficile colitis status post fecal transplant at [facility]. Monitor closely. Avoid antibiotics. 4. History of SVT. Stable. Continue atenolol 100 mg at bedtime. 5. Hypertension and hypertensive cardiovascular disease. Continue atenolol. 6. GERD. Continue Protonix 40 mg daily. 7. Rheumatoid arthritis. Stable. 8. Hypothyroidism. Continue levothyroxine 50 MCG daily 9. Generalized anxiety disorder. Continue Xanax 2 mg every 8 hours as needed 10. Recurrent depression. Continue BuSpar 10 mg twice daily, Celexa 40 mg daily. 11. DVT prophylaxis. SCDs and TIMOTEO hose 12. GI prophylaxis. Protonix 40 mg daily. 13. Chronic back pain. [place] 5/325 1 every 6 hours as needed. 14. Hypotension. Patient was given IV fluid bolus 500 ML's. monitoring coordinator be added. Patient is currently stable. Discharge plan: Most likely return home Impression and plan of care have been directed as dictated by the signing physician. Domenica Reed nurse practitioner acting as scribe for signing physician.
[2018-09-08] MEDS: SODIUM CHLORIDE 0.9% 1,000 ML IV SCH ×2 (14:53→22:03)
[2018-09-08] MEDS: SODIUM FERRIC GLUCONAT-SUCROSE 125 MG in SODIUM CHLORIDE 0.9% 100 ML IVPB SCH (16:58)
[2018-09-08] MEDS ORDERED: CYANOCOBALAMIN 1,000 MCG/ML 1 ML VIAL IM ONE (18:05)
--- NOTE | 2018-09-08 18:05 | P.PN ---
Subjective Progress Note Date: 09/08/18 Principal diagnosis: iron deficient anemia In follow-up today patient is denying any acute complaints, she is ambulating to the restroom with a walker and standby assist, moderate shortness of breath with activity, she denies any bleeding, no hematuria, black or bloody stool. She is tolerating oral intake without nausea or vomiting Objective - Vital Signs Vital signs: Vital Signs Temp 98.8 F 09/08/18 16:55 Pulse 67 09/08/18 16:55 Resp 16 09/08/18 16:55 BP 93/51 09/08/18 16:55 Pulse Ox 100 09/08/18 16:55 Intake & Output 09/07/18 09/08/18 09/08/18 18:59 06:59 18:59 Intake Total 1100 1510 810 Balance 1100 1510 810 Intake: Intake, IV Titration 300 300 Amount Sodium Chloride 0.9% 1, 300 000 ml @ 75 mls/hr IV . [id number] ONE Rx#:[id number] Sodium Chloride 0.9% 1, 300 000 ml @ 75 mls/hr IV . [id number] [facility] Rx#:[id number] Oral 800 590 500 Blood Product 0 620 310 Rc As-1 Unit 310 [id number] Rc As-1 Unit 0 310 [id number] Other: Voiding Method Toilet Toilet Toilet # Voids 2 2 1 - Exam Well-developed, well-nourished 78-year-old female, pale, alert and oriented, no acute distress, respirations even and unlabored at rest, radial pulses palpable 2+, no lower extremity swelling, appropriate mood and affect,gross focal or motor or neural deficits - Labs CBC & Chem 7: 09/08/18 09:03 09/08/18 09:03 Labs: Abnormal Lab Results - Last 24 Hours (Table) 09/06/18 09/08/18 09/08/18 Range/Units 23:25 09:03 09:03 RBC 2.00 L (3.80-5.40) m/uL Hgb 5.6 L* (11.4-16.0) gm/dL Hct 18.8 L* (34.0-46.0) % MCHC 29.9 L (31.0-37.0) g/dL RDW 16.8 H (11.5-15.5) % Chloride 112 H (98-107) mmol/L BUN 18 H (7-17) mg/dL Glucose 136 H (74-99) mg/dL Calcium 8.0 L (8.4-10.2) mg/dL Total Protein 4.7 L (6.3-8.2) g/dL Albumin 2.5 L (3.5-5.0) g/dL Crossmatch See Detail Assessment and Plan (1) B12 deficiency anemia Narrative/Plan: patient has not received a B12 recently, we will order a dose Current Visit: No Status: Chronic Priority: Medium Code(s): D51.9 - VITAMIN B12 DEFICIENCY ANEMIA, UNSPECIFIED SNOMED Code(s): 59985908 (2) Iron deficiency anemia Narrative/Plan: Patient hemoglobin did not have an expected response to the unit of blood. 2 more units have been ordered. Patient has been extensively worked up in the past for iron deficiency, suspect AVMs in the gastrointestinal tract. Quite possibly patient may be experiencing an acute bleeding episode. Stool has been ordered for occult. CBC daily. Parenteral iron daily 4, continue as long as patient is inpatient Current Visit: Yes Status: Chronic Priority: Medium Code(s): D50.9 - IRON DEFICIENCY ANEMIA, UNSPECIFIED SNOMED Code(s): 42579661
[2018-09-08] MEDS: traZODone HCL 100 MG TAB PO SCH (21:48)
[2018-09-08] MEDS: ATENOLOL 50 MG TAB PO SCH (22:03)
[2018-09-09] MEDS: HYDROcodone/APAP 5-325MG 1 EACH TAB PO PRN ×3 (05:07→19:13)
[2018-09-09] MEDS: LEVOTHYROXINE 50 MCG TAB PO SCH (05:58)
[2018-09-09 08:15] LABS: Anisocytosis Slight; HCT 20.1 % (34.0-46.0); Hypochromasia Marked; MCH 28.5 pg (25.0-35.0); MCHC 32.4 g/dL (31.0-37.0); Mean Platelet Volume 9.1; Platelet Count 189 k/uL (150-450); Poikilocytosis Marked; RBC 2.29 m/uL (3.80-5.40); RDW 16.7 % (11.5-15.5); WBC 7.1 k/uL (3.8-10.6)
[2018-09-09 08:32] LABS: HGB 6.5 gm/dL (11.4-16.0)
[2018-09-09] MEDS: PANTOPRAZOLE 40 MG TABLET PO SCH (08:51)
[2018-09-09] MEDS: busPIRone HCl 10 MG TAB PO SCH ×2 (08:51→20:49)
[2018-09-09] MEDS: CITALOPRAM HYDROBROMIDE 20 MG TAB PO SCH (08:51)
[2018-09-09] MEDS: SODIUM CHLORIDE 0.9% 1,000 ML IV SCH ×2 (10:21→16:19)
--- NOTE | 2018-09-09 13:03 | P.PN ---
Subjective Progress Note Date: 09/09/18 This is a 78-year-old female one of Dr. Marino's patients, past medical history of hypertension, hypertensive cardiovascular disease, mitral valve prolapse, supraventricular tachycardia, rheumatoid arthritis, GERD, COPD, and recurrent C. diff colitis. 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 diff at [facility]. The patient has had multiple hospitalizations regarding anemia with hemoglobin as low as 4.8 and followed by GI and oncology with plan for transfusions/iron infusions as an outpatient. She has not had any recent recurrence of C. difficile colitis. Her most recent hospitalization was in May which time she was treated for acute anemia secondary to chronic disease and possible GI bleed and she was transfused for a total of 3 units of packed RBCs and received Ferrlecit as well. She also received 1 dose of vitamin B12 and was followed by oncology. Patient complains of shortness of breath that is worse with exertion. No chest pain or palpitations. No lightheadedness and no syncopal episodes. No fever or chills, no cough, no headache no numbness or weakness. Patient denies any black or bloody stools. Patient is complaining of pain in her hips and knees and states she is normally on Percocet but has been out for the past 10 days. She also states that she is was on an ER stretcher which made things worse. Patient states she has been following with Dr. Acuna every month and hemoglobin was up to 12 and then approximately one and half we eks later dropped down to 8. She last saw him 2 weeks ago and has only received 1 dose of Ferrlecit. She denies any iron transfusions for 4 months. Patient presented to [facility] emergency center for evaluation. Patient was afebrile, initial blood pressure 87/43, hemoglobin 6.9, white count 14.6, platelet count 272. Sodium 138, potassium 3.3, chloride 105, CO2 24, BUN 45 and creatinine 0.96, blood sugar 139. PT 1.0. Chest x-ray showed no acute abnormality other than a hiatal hernia. EKG was a sinus rhythm in the 60s without ST elevation. T-wave inversion and V5 V6 and Q waves in 23 and aVF. EKG was unchanged from prior. The patient has been ordered for 1 unit packed RBC transfusion but due to antibodies this is delayed. Oncology is on consult and has ordered iron studies and B12 level. 09/08: Patient is status post transfusion 1 unit packed RBCs and repeat he moglobin this morning is 5.6 and she has been ordered for 2 units of packed RBCs. Potassium is 3.6, chloride 112, sodium 138, BUN 18 and creatinine 0.72. Blood pressure has been on the lower side and fluid bolus of 500 ML's given. Currently blood pressure is 93/54. Patient is complaining of a lightheadedness. She denies any chest pain or shortness of breath. Telemetry has been added. Patient has been afebrile, heart rate 68, blood pressure 88/54, pulse ox 90% on 2 L nasal cannula. 09/09: Patient lost IV access during the night and did not receive a repeat dose of Ferrlecit nor the second unit of packed RBCs ordered for yesterday. We have ordered Accu cath for today and patient will receive these medications today. Also, patient had a large black, tarry bowel movement last night. No nausea or vomiting. A GI consult has been added. She is currently on O2 at 3 L nasal cannula. Patient is complaining of weakness and she is now using a commode chair versus going to the bathroom. She has been afebrile, blood pressure 117/55, pulse ox 97% on 3 L nasal cannula. Heart rate in the 70s-90s. Repeat hemoglobin is 6.5 this morning. Objective - Vital Signs Vital signs: Vital Signs Temp 98.1 F 09/09/18 05:00 Pulse 75 09/09/18 05:00 Resp 20 09/09/18 05:00 BP 104/62 09/09/18 05:00 Pulse Ox 100 09/09/18 05:00 Intake & Output 09/08/18 09/09/18 09/09/18 18:59 06:59 18:59 Intake Total 810 275 Balance 810 275 Intake: Intake, IV Titration 75 Amount Sodium Chloride 0.9% 1, 75 000 ml @ 75 mls/hr IV . [id number] [facility] Rx#:[id number] Oral 500 200 Blood Product 310 Rc As-1 Unit 310 [id number] Other: Voiding Method Toilet Bedside Commode Bedside Commode Diaper Diaper # Voids 1 2 # Bowel Movements 1 - Exam Review of Systems Constitutional: Reports fatigue, Reports weakness, Denies anorexia, Denies chills, Denies fever, Denies weight loss Eyes: denies blurred vision, denies pain Ears, nose, mouth and throat: Denies dysphagia, Denies headache, Denies nasal congestion, Denies nasal discharge, Denies sore throat, Denies vertigo Cardiovascular: Reports decreased exercise tolerance, Reports dyspnea on exertion, Denies chest pain, Denies edema, reports lightheadedness, Denies palpitations, Denies shortness of breath, Denies syncope Respiratory: Denies cough, Denies cough with sputum, Denies dyspnea, Denies excessive sputum, Denies hemoptysis, Denies home oxygen, Denies wheezing Gastrointestinal: Denies abdominal pain, Denies diarrhea, Denies hematemesis, Denies loss of appetite, reports melena, Denies nausea, Denies vomiting Genitourinary: Denies dysuria, Denies hematuria Musculoskeletal: Denies frequent falls, Denies gait dysfunction, Denies muscle weakness, Denies myalgias Integumentary: Denies pruritus, Denies rash, Denies wounds Neurological: Denies change in mentation, Denies change in speech, Denies gait dysfunction, Denies head injury, Denies headaches, Denies numbness, Denies seizures, Denies weakness Psychiatric: Denies anxiety, Denies depression Endocrine: Denies fatigue, Denies weight change General appearance: cooperative, no acute distress, thin, patient is resting comfortably - EENT Eyes: anicteric sclerae, EOMI, normal appearance ENT: hearing grossly normal, normal oropharynx - Neck Neck: no lymphadenopathy - Respiratory Respiratory: bilateral: diminished - Cardiovascular Rhythm: regular Heart sounds: normal: S1, S2 Abnormal Heart Sounds: no systolic murmur, no diastolic murmur, no rub, no S3 Gallop, no S4 Gallop, no click, no other leg Peripheral Edema: bilateral: None - Gastrointestinal General gastrointestinal: no absent bowel sounds, no decreased bowel sounds, no distended, no hepatomegaly, no hyperactive bowel sounds, normal bowel sounds, no organomegaly, no rigid, no scaphoid, soft, no splenomegaly, no tenderness, no umbilical hernia, no ventral hernia - Integumentary Integumentary: pale - Neurologic Neurologic: CNII-XII intact - Musculoskeletal Musculoskeletal: generalized weakness, strength equal bilaterally - Psychiatric Psychiatric: A&O x's 3, appropriate affect, intact judgment & insight - Labs CBC & Chem 7: 09/09/18 06:37 09/08/18 09:03 Labs: Abnormal Lab Results - Last 24 Hours (Table) 09/06/18 09/09/18 Range/Units 23:25 06:37 RBC 2.29 L (3.80-5.40) m/uL Hgb 6.5 L* (11.4-16.0) gm/dL Hct 20.1 L (34.0-46.0) % RDW 16.7 H (11.5-15.5) % Crossmatch See Detail Assessment and Plan Plan: 1. Dyspnea on exertion secondary to anemia. Repeat CBC every 6 hours 2, then daily. Transfuse 2 unit of packed RBCs for total of 3 units. Oncology consult appreciated. Iron studies and B12 ordered. 2. Acute blood loss anemia anemia with history of anemia of chronic disease. GI consult added. Plan to continue current transfusion and Ferrlecit infusion. 3. History of C.Difficile colitis status post fecal transplant at [facility]. Monitor closely. Avoid antibiotics. 4. History of SVT. Stable. Continue atenolol 100 mg at bedtime. 5. Hypertension and hypertensive cardiovascular disease. Continue atenolol. 6. GERD. Continue Protonix 40 mg daily. 7. Rheumatoid arthritis. Stable. 8. Hypothyroidism. Continue levothyroxine 50 MCG daily 9. Generalized anxiety disorder. Continue Xanax 2 mg every 8 hours as needed 10. Recurrent depression. Continue BuSpar 10 mg twice daily, Celexa 40 mg daily. 11. DVT prophylaxis. SCDs and TIMOTEO hose 12. GI prophylaxis. Protonix 40 mg daily. 13. Chronic back pain. [place] 5/325 1 every 6 hours as needed. 14. Hypotension. Status post IV fluid bolus 500 ML's. awake overnight monitor be added. Patient is currently stable. Discharge plan: Most likely return home by Wednesday Impression and plan of care have been directed as dictated by the signing physician. Domenica Reed nurse practitioner acting as scribe for signing physician.
[2018-09-09 15:01] LABS: T4, Free (Free Thyroxine) 1.14 ng/dL (0.78-2.19)
[2018-09-09 15:28] LABS: Reticulocyte % 6.1 % (0.5-2.0)
[2018-09-09] MEDS: SODIUM FERRIC GLUCONAT-SUCROSE 125 MG in SODIUM CHLORIDE 0.9% 100 ML IVPB SCH (16:19)
[2018-09-09] MEDS: CYANOCOBALAMIN 500 MCG TAB PO SCH (16:20)
[2018-09-09 16:42] LABS: Protein, Total 5.2 g/dL (6.2-8.2)
[2018-09-09] MEDS: ATENOLOL 50 MG TAB PO SCH (20:49)
[2018-09-09] MEDS: traZODone HCL 100 MG TAB PO SCH (20:49)
--- NOTE | 2018-09-09 21:39 | P.CONS ---
History of Present Illness - Reason for Consult Consult date: 09/09/18 Anemia, melena Requesting physician: Shirley Weinberg - Chief Complaint Anemia - History of Present Illness Pleasant 78-year-old female with a known history of hypertension, mitral valve prolapse, SVT, rheumatoid arthritis, GERD, COPD and previous episodes of recurrent gastrointestinal colitis requiring fecal transplant at [facility] who presented to the hospital with complaints of weakness. The patient reports increasing shortness of breath on exertion. She has a known history of anemia and undergoes iron supplementation in the outpatient setting. She states that hemoglobin was up to 12 within the past few months. On presentation to the hospital she was found to have a hemoglobin of 6.9 with an MCV of 91.5 which subsequently trended to 5.6 and was found to be 6.5 on repeat draw. The patient does state that she had been taking ibuprofen daily at home prior to presentation for treatment of her rheumatoid arthritis. She has undergone endoscopic evaluation in the past with EGD and colonoscopy in 11/2014 which was significant for a hiatal hernia, Silviano's erosions and colonic diverticulosis. Video capsule endoscopy in 11/2015 was negative. EGD in 01/2017 was significant only for a hiatal hernia. Currently she is denying any abdominal pain and tolerating her diet. She states that bowel movements have been dark, but that the have always been dark since starting iron supplementation. Review of Systems REVIEW OF SYSTEMS: CONSTITUTIONAL: Denies any fevers, chills, weight change but does report fatigue. CARDIOVASCULAR: Denies any chest pain, palpitations high or low blood pressures RESPIRATORY: Denies any hemoptysis or cough, but does report shortness of breath on exertion. GENITOURINARY: No dysuria or hematuria. MUSCULOSKELETAL: No weakness reported. SKIN: Denies any new rashes or lesions, jaundice or pallor. PSYCHIATRIC: Denies any depression or anxiety. NEUROLOGY: Denies headache, denies any new focal deficits. EARS/NOSE/THROAT: No recent hearing change, congestion, nasal discharge or sore throat. EYES: No pain in eyes, discharge or change in vision. GASTROINTESTINAL: As per HPI. Past Medical History Past Medical History: Atrial Fibrillation, Atrial Flutter, GERD/Reflux, Hyperlipidemia, Hypertension, Mitral Valve Prolapse (MVP), Rheumatoid Arthritis (RA), Thyroid Disorder Additional Past Medical History / Comment(s): OTHER HX: 03/06/14, 03/30/14, 07/03/14, 07/29/14 with CDIFF colitis, HYPOTHYROID, MVP, urinary incontinence, PROLAPSED MITRAL VALVE- NO PROBLEMS FOR 30 YRS.anemia -requiring blood transfusion History of Any Multi-Drug Resistant Organisms: C-DIFF Year Discovered:: 2016 MDRO Source:: Stool Past Surgical History: Adenoidectomy, Cholecystectomy, Hysterectomy, Joint Replacement, Orthopedic Surgery, Tonsillectomy Additional Past Surgical History / Comment(s): 02/18/16 total R hip arthroplasty. Other surgical HX: BILATERAL KNEE REPLACEMENT (2003-RIGHT & 2005 - LEFT); LOWER LUMBAR LAMINECTOMYL4-L5 (2007); LEFT HIP REPLACEMENT (2012); RIGHT SHOULDER REPLACEMENT (2008), left total knee arthroplasty revision. Bilateral cataracts with lens implants. FECAL TRASPLANT TX FOR C-DIFF three times.cataracts-lens implants Past Anesthesia/Blood Transfusion Reactions: No Reported Reaction Additional Past Anesthesia/Blood Transfusion Reaction / Comm: blood transfusion in past no reactions Past Psychological History: Anxiety, Depression Additional Psychological History / Comment(s): pt lives in own home w/roommate, SHE IS A . STILL DRIVES, has an electric scooter currently not working so uses rollator. Smoking Status: Current every day smoker Past Alcohol Use History: None Reported Additional Past Alcohol Use History / Comment(s): Patient has smoked since 1954- 5 cig per day and stated she has no intention of quitting No alcohol use or abuse. No street drug use marijuana or medical marijuana use. Past Drug Use History: None Reported - Past Family History Mother Family Medical History: Cancer Additional Family Medical History / Comment(s): Mother at age 60 with history of emphysema and lung cancer. Father Family Medical History: CVA/TIA Additional Family Medical History / Comment(s): Father at age 74 with problems with his larynx. Sister(s) Family Medical History: Unable to Obtain Daughter(s) Family Medical History: COPD, Myocardial Infarction ([place]) Additional Family Medical History / Comment(s): Mother at age 60 yrs of emphysema/lung CA Son(s) Family Medical History: Myocardial Infarction ([place]) Additional Family Medical History / Comment(s): Father at age 74yrs with "CVA of his larynx" Medications and Allergies Home Medications Medication Instructions Recorded Confirmed Type Ipratropium-Albuterol Nebulize 3 ml INHALATION RT-QID 03/23/18 09/06/18 History [Duoneb 0.5 mg-3 mg/3 ml Soln] busPIRone HCl [Buspar] 10 mg PO BID #60 tab 03/28/18 09/06/18 Rx Citalopram Hydrobromide [CeleXA] 40 mg PO DAILY 05/12/18 09/06/18 History Furosemide [Lasix] 40 mg PO DAILY 05/12/18 09/06/18 History ALPRAZolam [Xanax] 2 mg PO Q8H PRN 06/06/18 09/06/18 History Atenolol 100 mg PO HS 06/06/18 09/06/18 History Levothyroxine Sodium [Synthroid] 50 mcg PO DAILY 06/06/18 09/06/18 History traZODone HCL 100 mg PO HS 06/06/18 09/06/18 History Potassium Chloride ER [K-Dur 20] 20 meq PO BID 09/06/18 09/06/18 History Allergies Allergy/AdvReac Type Severity Reaction Status Date / Time adhesive tape Allergy Rash/Hives Verified 09/06/18 23:15 Influenza Virus Vaccines Allergy "MAKES HER Verified 09/06/18 23:15 FEEL SICK" Sulfa (Sulfonamide Allergy Rash/Hives Verified 09/06/18 23:15 Antibiotics) amoxicillin trihydrate AdvReac Diarrhea Verified 09/06/18 23:15 [From Augmentin] ciprofloxacin [From Cipro] AdvReac Unknown Verified 09/06/18 23:15 metronidazole [From Flagyl] AdvReac Unknown Verified 09/06/18 23:15 potassium clavulanate AdvReac Diarrhea Verified 09/06/18 23:15 [From Augmentin] quinidine AdvReac BLOOD CLOTS Verified 09/06/18 23:15 Physical Exam Vitals: Vital Signs Temp Pulse Pulse Resp BP BP Pulse Ox 09/09/18 13:07 98.5 F 76 18 119/66 96 09/09/18 11:35 97.6 F 90 16 117/55 97 09/09/18 11:05 97.2 F L 78 16 89/51 100 09/09/18 10:55 97.0 F L 74 16 95/52 100 09/09/18 05:00 98.1 F 75 20 104/62 100 09/08/18 23:30 73 22 09/08/18 21:00 98.4 F 73 22 101/60 100 09/08/18 16:55 98.8 F 67 16 93/51 100 09/08/18 15:46 16 Intake and Output 09/09/18 09/09/18 09/09/18 06:59 14:59 22:59 Intake Total 200 310 Balance 200 310 Intake: Oral 200 Blood Product 310 Rc As-1 Unit 310 [id number] Other: Voiding Method Bedside Commode Bedside Commode Diaper Diaper # Voids 2 On physical examination, patient appears comfortable in no apparent distress. HEAD: Normocephalic, atraumatic. EYES: No scleral icterus. No conjunctival injection. MOUTH: No lesions, tongue midline. NECK: Trachea midline, no gross abnormalities. CHEST: Clear to auscultation with no wheezing or rhonchi appreciated. HEART: S1-S2 appreciated. ABDOMEN: Soft, obese. Bowel sounds are positive. No organomegaly. No guarding or rigidity. EXTREMITIES: No pedal edema. SKIN: No rashes, no jaundice. NEUROLOGIC: Alert and oriented x3. No focal deficits. Results CBC & Chem 7: 09/09/18 06:37 09/08/18 09:03 Labs: Abnormal Lab Results - Last 24 Hours (Table) 09/06/18 09/08/18 09/09/18 Range/Units 23:25 09:03 06:37 RBC 2.29 L (3.80-5.40) m/uL Hgb 6.5 L* (11.4-16.0) gm/dL Hct 20.1 L (34.0-46.0) % RDW 16.7 H (11.5-15.5) % TSH 5.750 H (0.465-4.680) mIU/L Crossmatch See Detail Chest x-ray: report reviewed (Chest x-ray is significant for cardiomegaly and a large hiatal hernia.) Assessment and Plan (1) Anemia Narrative/Plan: 78-year-old female presenting with symptomatic anemia with hemoglobin found to be 6.9 on presentation MCV of 91.5 and iron studies including iron saturation 87%, iron level CCXCI, and ferritin of 26.1 this and with iron deficiency, although the patient is on home supplementation with iron. The patient has a prior history of GI bleeding from Silviano's erosions found in 11/2014. She does report dark stool but states that this has been present since starting iron supplementation. Acute fall in hemoglobin is concerning for possible GI bleed with consideration for Silviano's erosions given large hiatal hernia and previous findings, peptic ulcer disease in the setting of ibuprofen use, AVM or other etiology. Current Visit: Yes Status: Acute Code(s): D64.9 - ANEMIA, UNSPECIFIED SNOMED Code(s): 927491678 (2) History of Clostridium difficile infection Narrative/Plan: History of Clostridium difficile treated with fecal transplant on 3 occasions at [facility]. Current Visit: Yes Status: Acute Code(s): Z86.19 - PERSONAL HISTORY OF OTHER INFECTIOUS AND PARASITIC DISEASES SNOMED Code(s): 630813568 Plan: Supportive care Continue diet, nothing by mouth after midnight Continue to monitor hemoglobin and hematocrit and transfuse as needed Avoid NSAID use Plan on EGD in the morning for further investigation Continue Protonix daily Thank you for allowing us to participate in the care of the patient we will continue to follow
[2018-09-09] MEDS: ACETAMINOPHEN TAB 325 MG TAB PO PRN (23:56)
[2018-09-09] MEDS: ALPRAZolam 1 MG TAB PO PRN (23:56)
[2018-09-10] MEDS: HYDROcodone/APAP 5-325MG 1 EACH TAB PO PRN ×3 (01:03→20:59)
[2018-09-10] MEDS: LEVOTHYROXINE 50 MCG TAB PO SCH (05:36)
[2018-09-10] MEDS: PANTOPRAZOLE 40 MG TABLET PO SCH (07:45)
[2018-09-10] MEDS: SODIUM FERRIC GLUCONAT-SUCROSE 125 MG in SODIUM CHLORIDE 0.9% 100 ML IVPB SCH (09:06)
[2018-09-10 09:53] LABS: Anisocytosis Slight; HCT 24.7 % (34.0-46.0); HGB 7.7 gm/dL (11.4-16.0); Hypochromasia Marked; MCH 28.1 pg (25.0-35.0); MCHC 31.3 g/dL (31.0-37.0); MCV 89.8 fL (80.0-100.0); Mean Platelet Volume 7.9; Platelet Count 217 k/uL (150-450); Poikilocytosis Marked; RBC 2.75 m/uL (3.80-5.40); RDW 16.3 % (11.5-15.5); WBC 5.6 k/uL (3.8-10.6)
[2018-09-10] MEDS: CYANOCOBALAMIN 500 MCG TAB PO SCH (10:42)
[2018-09-10] MEDS: CITALOPRAM HYDROBROMIDE 20 MG TAB PO SCH (10:42)
[2018-09-10] MEDS: busPIRone HCl 10 MG TAB PO SCH ×2 (10:42→20:59)
[2018-09-10] MEDS: ALPRAZolam 1 MG TAB PO PRN (10:43)
[2018-09-10 12:25] LABS: Immunoglobulin M 32.9 mg/dL (40.0-280.0)
--- NOTE | 2018-09-10 12:48 | P.PN ---
Subjective Progress Note Date: 09/10/18 This is a 78-year-old female one of Dr. Marino's patients, past medical history of hypertension, hypertensive cardiovascular disease, mitral valve prolapse, supraventricular tachycardia, rheumatoid arthritis, GERD, COPD, and recurrent C. diff colitis. 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 The patient has had multiple hospitalizations regarding anemia with hemoglobin as low as 4.8 and followed by GI and oncology with plan for transfusions/iron infusions as an outpatient. She has not had any recent recurrence of C. difficile colitis. Her most recent hospitalization was in May which time she was treated for acute anemia secondary to chronic disease and possible GI bleed and she was transfused for a total of 3 units of packed RBCs and received Ferrlecit as well. She also received 1 dose of vitamin B12 and was followed by oncology. Patient complains of shortness of breath that is worse with exertion. No chest pain or palpitations. No lightheadedness and no syncopal episodes. No fever or chills, no cough, no headache no numbness or weakness. Patient denies any black or bloody stools. Patient is complaining of pain in her hips and knees and states she is normally on Percocet but has been out for the past 10 days. She also states that she is was on an ER stretcher which made things worse. Patient states she has been following with Dr. Acuna every month and hemoglobin was up to 12 and then approximately one and half we eks later dropped down to 8. She last saw him 2 weeks ago and has only received 1 dose of Ferrlecit. She denies any iron transfusions for 4 months. Patient presented to [facility] emergency center for evaluation. Patient was afebrile, initial blood pressure 87/43, hemoglobin 6.9, white count 14.6, platelet count 272. Sodium 138, potassium 3.3, chloride 105, CO2 24, BUN 45 and creatinine 0.96, blood sugar 139. PT 1.0. Chest x-ray showed no acute abnormality other than a hiatal hernia. EKG was a sinus rhythm in the 60s without ST elevation. T-wave inversion and V5 V6 and Q waves in 23 and aVF. EKG was unchanged from prior. The patient has been ordered for 1 unit packed RBC transfusion but due to antibodies this is delayed. Oncology is on consult and has ordered iron studies and B12 level. 09/08: Patient is status post transfusion 1 unit packed RBCs and repeat he moglobin this morning is 5.6 and she has been ordered for 2 units of packed RBCs. Potassium is 3.6, chloride 112, sodium 138, BUN 18 and creatinine 0.72. Blood pressure has been on the lower side and fluid bolus of 500 ML's given. Currently blood pressure is 93/54. Patient is complaining of a lightheadedness. She denies any chest pain or shortness of breath. Telemetry has been added. Patient has been afebrile, heart rate 68, blood pressure 88/54, pulse ox 90% on 2 L nasal cannula. 09/09: Patient lost IV access during the night and did not receive a repeat dose of Ferrlecit nor the second unit of packed RBCs ordered for yesterday. We have ordered Accu cath for today and patient will receive these medications today. Also, patient had a large black, tarry bowel movement last night. No nausea or vomiting. A GI consult has been added. She is currently on O2 at 3 L nasal cannula. Patient is complaining of weakness and she is now using a commode chair versus going to the bathroom. She has been afebrile, blood pressure 117/55, pulse ox 97% on 3 L nasal cannula. Heart rate in the 70s-90s. Repeat hemoglobin is 6.5 this morning. 09/10: The patient has been seen by Dr. Bergman and is scheduled for EGD today with Dr. Mccormack in the afternoon. Repeat hemoglobin is 7.7. She is status post total of 3 units packed RBCs. TSH is 5.750 and normal free T4. Sed rate 69, retaken count 6.1. IgG is low at 613, IgA 124, IgM low at 32.9, free Is high at 3.04 and free lambda normal at 2.31. Immunofixation, methylmalonic acid, protein electrophoresis, vitamin B12 are all pending. Blood pressure remains on the lower side at 97/50 802/67. Heart rate in the 50s, patient's been afebrile. Pulse ox is 99% on 2 L nasal cannula. Objective - Vital Signs Vital signs: Vital Signs Temp 97.4 F L 09/10/18 04:59 Pulse 50 L 09/10/18 08:00 Resp 16 09/10/18 04:59 BP 102/67 09/10/18 04:59 Pulse Ox 99 09/10/18 04:59 Intake & Output 09/09/18 09/10/18 09/10/18 18:59 06:59 18:59 Intake Total 310 590 Balance 310 590 Intake: Oral 590 Blood Product 310 Rc As-1 Unit 310 [id number] Other: Voiding Method Bedside Commode Bedside Commode Diaper Diaper # Voids 2 2 - Exam Review of Systems Constitutional: Reports fatigue, Reports weakness, reports anorexia, Denies chi lls, Denies fever, Denies weight loss, reports generalized pain Eyes: denies blurred vision, denies pain Ears, nose, mouth and throat: Denies dysphagia, Denies headache, Denies nasal congestion, Denies nasal discharge, Denies sore throat, Denies vertigo Cardiovascular: Reports decreased exercise tolerance, Reports dyspnea on exertion, Denies chest pain, Denies edema, reports lightheadedness, Denies palpitations, Denies shortness of breath, Denies syncope Respiratory: Denies cough, Denies cough with sputum, Denies dyspnea, Denies excessive sputum, Denies hemoptysis, Denies home oxygen, Denies wheezing Gastrointestinal: Denies abdominal pain, Denies diarrhea, Denies hematemesis, Denies loss of appetite, reports melena, Denies nausea, Denies vomiting Genitourinary: Denies dysuria, Denies hematuria Musculoskeletal: Denies frequent falls, Denies gait dysfunction, Denies muscle weakness, Denies myalgias Integumentary: Denies pruritus, Denies rash, Denies wounds Neurological: Denies change in mentation, Denies change in speech, Denies gait dysfunction, Denies head injury, Denies headaches, Denies numbness, Denies seizures, Denies weakness Psychiatric: Denies anxiety, Denies depression Endocrine: Denies fatigue, Denies weight change General appearance: cooperative, no acute distress, thin, patient is resting comfortably. Patient is sleeping - EENT Eyes: anicteric sclerae, EOMI, normal appearance ENT: hearing grossly normal, normal oropharynx - Neck Neck: no lymphadenopathy - Respiratory Respiratory: bilateral: diminished - Cardiovascular Rhythm: regular Heart sounds: normal: S1, S2 Abnormal Heart Sounds: no systolic murmur, no diastolic murmur, no rub, no S3 Gallop, no S4 Gallop, no click, no other leg Peripheral Edema: bilateral: None - Gastrointestinal General gastrointestinal: no absent bowel sounds, no decreased bowel sounds, no distended, no hepatomegaly, no hyperactive bowel sounds, normal bowel sounds, no organomegaly, no rigid, no scaphoid, soft, no splenomegaly, no tenderness, no umbilical hernia, no ventral hernia - Integumentary Integumentary: pale - Neurologic Neurologic: CNII-XII intact - Musculoskeletal Musculoskeletal: generalized weakness, strength equal bilaterally - Psychiatric Psychiatric: A&O x's 3, appropriate affect, intact judgment & insight - Labs CBC & Chem 7: 09/10/18 08:35 09/08/18 09:03 Labs: Abnormal Lab Results - Last 24 Hours (Table) 09/06/18 09/08/18 09/08/18 Range/Units 23:25 09:03 09:03 RBC (3.80-5.40) m/uL Hgb (11.4-16.0) gm/dL Hct (34.0-46.0) % RDW (11.5-15.5) % ESR (0-20) mm/hr Retic Count (0.5-2.0) % Total Protein (PEP) 5.2 L (6.2-8.2) g/dL TSH 5.750 H (0.465-4.680) mIU/L Crossmatch See Detail 09/09/18 09/10/18 Range/Units 14:49 08:35 RBC 2.75 L (3.80-5.40) m/uL Hgb 7.7 L (11.4-16.0) gm/dL Hct 24.7 L (34.0-46.0) % RDW 16.3 H (11.5-15.5) % ESR 69 H (0-20) mm/hr Retic Count 6.1 H (0.5-2.0) % Total Protein (PEP) (6.2-8.2) g/dL TSH (0.465-4.680) mIU/L Crossmatch Assessment and Plan Plan: 1. Dyspnea on exertion secondary to anemia. Repeat CBC every 6 hours 2, then daily. Transfuse 2 unit of packed RBCs for total of 3 units. Oncology consult appreciated. Iron studies and B12 ordered. 2. Acute blood loss anemia anemia with history of anemia of chronic disease. GI consult added. Plan to continue current transfusion and Ferrlecit infusion. EGD this afternoon. 3. History of C.Difficile colitis status post fecal transplant at [facility]. Monitor closely. Avoid antibiotics. 4. History of SVT. Stable. Continue atenolol 100 mg at bedtime. 5. Hypertension and hypertensive cardiovascular disease. Continue atenolol. 6. GERD. Continue Protonix 40 mg daily. 7. Rheumatoid arthritis. Stable. 8. Hypothyroidism. Continue levothyroxine 50 MCG daily 9. Generalized anxiety disorder. Continue Xanax 2 mg every 8 hours as needed 10. Recurrent depression. Continue BuSpar 10 mg twice daily, Celexa 40 mg daily. 11. DVT prophylaxis. SCDs and TIMOTEO hose 12. GI prophylaxis. Protonix 40 mg daily. 13. Chronic back pain. [place] 5/325 1 every 6 hours as needed. 14. Hypotension. Status post IV fluid bolus [address] monitor be added. Patient is currently stable. Discharge plan: Most likely return home by Wednesday Impression and plan of care have been directed as dictated by the signing physician. Domenica Reed nurse practitioner acting as scribe for signing physi rosalia.
[2018-09-10] MEDS: SODIUM CHLORIDE 0.9% 1,000 ML IV SCH (14:13)
[2018-09-10] MEDS ORDERED: PROPOFOL 10 MG/ML 20 ML VIAL IV ONE (16:01)
[2018-09-10] MEDS ORDERED: IV FLUID CONTINUATION 600 ML IV ONE (16:01)
--- NOTE | 2018-09-10 16:23 | P.PCN ---
Date of Procedure: 09/10/18 Procedure(s) Performed: BRIEF HISTORY: Patient is a 78-year-old, pleasant, white female with recurrent iron deficiency anemia was a bit the hospital with a hemoglobin of 5.6 trending to his abrupt transition. She denies any GI symptoms. She had an upper endoscopy as well as colonoscopy in November 2014 that revealed hiatal hernia with Silviano erosions. Small bowel capsule endoscopy in 2015 was unremarkable. A repeat upper endoscopy last year and again showed hiatal hernia with Silviano erosions.. PROCEDURE PERFORMED: Esophagogastroduodenoscopy. PREOPERATIVE DIAGNOSIS: Recurrent iron deficiency anemia. IV sedation per anesthesia. PROCEDURE: After informed consent was obtained, the patient was brought into the endoscopy unit. IV sedation was administered by Anesthesia under continuous monitoring. Initially the Olympus GIF-140 video endoscope was inserted into the mouth. Esophagus intubated without any difficulty. It was gradually advanced into the stomach and duodenum and carefully examined. The bulb and the second part of the duodenum appeared normal. The scope at this time was withdrawn to the stomach, adequately insufflated with air, and upon careful examination, mucosa of the antrum, body, appeared normal. The cardia and the fundus appeared normal. The scope was then withdrawn into the esophagus. Moderate size hiatal hernia noted. There were multiple superficial Silviano erosions noted at the diaphragmatic hiatus with no active bleeding. The GE junction was located at 35 cm from the incisors. The esophagus appeared normal. There were no erosions or ulcerations seen and the patient tolerated the procedure well. IMPRESSION: 1. Moderate size hiatal hernia with Silviano erosions but no active bleeding. 2. No evidence of esophagitis or peptic ulcer disease. RECOMMENDATIONS: The findings of this examination were discussed with the patient. Advance diet as tolerated. No plans on any further endoscopy workup.. Continue with iron supplements.
[2018-09-10] MEDS: ATENOLOL 50 MG TAB PO SCH (20:58)
[2018-09-10] MEDS: traZODone HCL 100 MG TAB PO SCH (21:00)
[2018-09-11] MEDS: ALPRAZolam 1 MG TAB PO PRN (00:01)
[2018-09-11] MEDS: ACETAMINOPHEN TAB 325 MG TAB PO PRN ×2 (00:02→20:20)
[2018-09-11] MEDS: SODIUM CHLORIDE 0.9% 1,000 ML IV SCH (05:26)
[2018-09-11] MEDS: LEVOTHYROXINE 50 MCG TAB PO SCH (05:45)
[2018-09-11] MEDS: CYANOCOBALAMIN 500 MCG TAB PO SCH (07:41)
[2018-09-11] MEDS: PANTOPRAZOLE 40 MG TABLET PO SCH (07:41)
[2018-09-11] MEDS: busPIRone HCl 10 MG TAB PO SCH ×2 (07:41→20:20)
[2018-09-11] MEDS: HYDROcodone/APAP 5-325MG 1 EACH TAB PO PRN ×2 (07:42→14:46)
[2018-09-11] MEDS: CITALOPRAM HYDROBROMIDE 20 MG TAB PO SCH (07:42)
[2018-09-11 08:41] LABS: Anisocytosis Slight; HCT 27.4 % (34.0-46.0); HGB 8.7 gm/dL (11.4-16.0); Hypochromasia Marked; MCH 28.7 pg (25.0-35.0); MCHC 31.6 g/dL (31.0-37.0); MCV 90.7 fL (80.0-100.0); Mean Platelet Volume 8.9; Platelet Count 203 k/uL (150-450); Poikilocytosis Marked; RBC 3.02 m/uL (3.80-5.40); RDW 16.5 % (11.5-15.5); WBC 4.9 k/uL (3.8-10.6)
[2018-09-11] MEDS: SODIUM FERRIC GLUCONAT-SUCROSE 125 MG in SODIUM CHLORIDE 0.9% 100 ML IVPB SCH (08:56)
--- NOTE | 2018-09-11 11:53 | PN ---
PROGRESS NOTE Patient is a 78-year-old pleasant white female admitted to hospital with recurrent iron- deficient anemia. She underwent an upper endoscopy yesterday that showed a moderate- sized hiatal hernia with multiple superficial Silviano erosions. The patient is receiving IV iron infusion today. During this hospitalization, she received 3 units of blood transfusion last hemoglobin is 8.7 g/dL. She denies any abdominal pain. No nausea, vomiting. No rectal bleeding or melena. PHYSICAL EXAMINATION: Appears comfortable. Vital signs are stable. Blood pressure 107/58, pulse rate 50, temperature 9I.7. HEENT: Examination unremarkable. Conjunctivae pink. Sclerae anicteric. Oral cavity no lesions. NECK: No jugular venous distention or lymph node enlargement. CHEST: Clear to auscultation. HEART: Regular rate and rhythm. ABDOMEN: Soft. Bowel sounds are positive. No organomegaly. EXTREMITIES: No pedal edema. SKIN: No rashes. NEUROLOGIC: Alert and oriented x3. No focal deficits. LABS: Hemoglobin at the time of admission was 5.6. Today it is 8.2, WBC 4.9, platelets 203. IMPRESSION: Recurrent severe iron deficiency anemia, status post EGD yesterday that showed a moderate-sized hiatal hernia with multiple Silviano erosions. In the past she did have an upper endoscopy/colonoscopy as well as small bowel capsule endoscopy, all in 2014 and 2016 that was unremarkable. Presently receiving IV iron infusions. RECOMMENDATION: 1. Continue with iron infusion. 2. Iron supplements daily. 3. The patient will be discharged home with an outpatient follow up in the office in 2- 3 weeks. Thank you for this consultation. MMODL / IJN: [id number] /
--- NOTE | 2018-09-11 12:26 | P.PN ---
Subjective Progress Note Date: 09/11/18 This is a 78-year-old female one of Dr. Marino's patients, past medical history of hypertension, hypertensive cardiovascular disease, mitral valve prolapse, supraventricular tachycardia, rheumatoid arthritis, GERD, COPD, and recurrent C. diff colitis. 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 The patient has had multiple hospitalizations regarding anemia with hemoglobin as low as 4.8 and followed by GI and oncology with plan for transfusions/iron infusions as an outpatient. She has not had any recent recurrence of C. difficile colitis. Her most recent hospitalization was in May which time she was treated for acute anemia secondary to chronic disease and possible GI bleed and she was transfused for a total of 3 units of packed RBCs and received Ferrlecit as well. She also received 1 dose of vitamin B12 and was followed by oncology. Patient complains of shortness of breath that is worse with exertion. No chest pain or palpitations. No lightheadedness and no syncopal episodes. No fever or chills, no cough, no headache no numbness or weakness. Patient denies any black or bloody stools. Patient is complaining of pain in her hips and knees and states she is normally on Percocet but has been out for the past 10 days. She also states that she is was on an ER stretcher which made things worse. Patient states she has been following with Dr. Acuna every month and hemoglobin was up to 12 and then approximately one and half we eks later dropped down to 8. She last saw him 2 weeks ago and has only received 1 dose of Ferrlecit. She denies any iron transfusions for 4 months. Patient presented to [facility] emergency center for evaluation. Patient was afebrile, initial blood pressure 87/43, hemoglobin 6.9, white count 14.6, platelet count 272. Sodium 138, potassium 3.3, chloride 105, CO2 24, BUN 45 and creatinine 0.96, blood sugar 139. PT 1.0. Chest x-ray showed no acute abnormality other than a hiatal hernia. EKG was a sinus rhythm in the 60s without ST elevation. T-wave inversion and V5 V6 and Q waves in 23 and aVF. EKG was unchanged from prior. The patient has been ordered for 1 unit packed RBC transfusion but due to antibodies this is delayed. Oncology is on consult and has ordered iron studies and B12 level. 09/08: Patient is status post transfusion 1 unit packed RBCs and repeat he moglobin this morning is 5.6 and she has been ordered for 2 units of packed RBCs. Potassium is 3.6, chloride 112, sodium 138, BUN 18 and creatinine 0.72. Blood pressure has been on the lower side and fluid bolus of 500 ML's given. Currently blood pressure is 93/54. Patient is complaining of a lightheadedness. She denies any chest pain or shortness of breath. Telemetry has been added. Patient has been afebrile, heart rate 68, blood pressure 88/54, pulse ox 90% on 2 L nasal cannula. 09/09: Patient lost IV access during the night and did not receive a repeat dose of Ferrlecit nor the second unit of packed RBCs ordered for yesterday. We have ordered Accu cath for today and patient will receive these medications today. Also, patient had a large black, tarry bowel movement last night. No nausea or vomiting. A GI consult has been added. She is currently on O2 at 3 L nasal cannula. Patient is complaining of weakness and she is now using a commode chair versus going to the bathroom. She has been afebrile, blood pressure 117/55, pulse ox 97% on 3 L nasal cannula. Heart rate in the 70s-90s. Repeat hemoglobin is 6.5 this morning. 09/10: The patient has been seen by Dr. Bergman and is scheduled for EGD today with Dr. Mccormack in the afternoon. Repeat hemoglobin is 7.7. She is status post total of 3 units packed RBCs. TSH is 5.750 and normal free T4. Sed rate 69, retaken count 6.1. IgG is low at 613, IgA 124, IgM low at 32.9, free Is high at 3.04 and free lambda normal at 2.31. Immunofixation, methylmalonic acid, protein electrophoresis, vitamin B12 are all pending. Blood pressure remains on the lower side at 97/50 802/67. Heart rate in the 50s, patient's been afebrile. Pulse ox is 99% on 2 L nasal cannula. 09/11: Patient underwent EGD yesterday with Dr. Mccormack finding multiple Silviano erosions and moderate sized hiatal hernia. Recommendations to continue iron in fusions, iron supplementation daily and follow-up in the office in 2-3 weeks. Patient has been cleared for discharge home. Repeat hemoglobin is 8.7. She has had no rectal bleeding. Blood pressure 106/58 and pulse 53, afebrile. Patient is on oxygen pulse ox 100% on 3 L and this to be weaned off today. Patient does have shortness of breath with ambulated to the bathroom and we will check a amb ulating pulse ox Plan is for patient to start ambulating today increased activity and an PT and OT and anticipate discharge home tomorrow. Objective - Vital Signs Vital signs: Vital Signs Temp 98.5 F 09/11/18 05:00 Pulse 50 L 09/11/18 05:00 Resp 18 09/11/18 05:00 BP 107/58 09/11/18 05:00 Pulse Ox 100 09/11/18 05:00 Intake & Output 09/10/18 09/11/18 09/11/18 18:59 06:59 18:59 Intake Total 850 1290 Balance 850 1290 Intake: IV 100 Intake, IV Titration 750 450 Amount Sodium Chloride 0.9% 1, 650 450 000 ml @ 75 mls/hr IV . [id number] [facility] Rx#:[id number] Sodium Ferric Gluconat- 100 Sucrose 125 mg In Sodium Chloride 0.9% 100 ml @ 100 mls/hr IVPB DAILY [facility] Rx#:[id number] Oral 0 840 Other: Voiding Method Bedside Commode Bedside Commode Toilet Diaper Diaper # Voids 4 3 # Bowel Movements 0 - Exam Review of Systems Constitutional: Reports fatigue, Reports weakness, reports anorexia, Denies chills, Denies fever, Denies weight loss, reports generalized pain Eyes: denies blurred vision, denies pain Ears, nose, mouth and throat: Denies dysphagia, Denies headache, Denies nasal congestion, Denies nasal discharge, Denies sore throat, Denies vertigo Cardiovascular: Reports decreased exercise tolerance, Reports dyspnea on exertion, Denies chest pain, Denies edema, reports lightheadedness, Denies palpitations, Denies shortness of breath, Denies syncope Respiratory: Denies cough, Denies cough with sputum, Denies dyspnea, Denies excessive sputum, Denies hemoptysis, Denies home oxygen, Denies wheezing Gastrointestinal: Denies abdominal pain, Denies diarrhea, Denies hematemesis, De nies loss of appetite, denies melena, Denies nausea, Denies vomiting Genitourinary: Denies dysuria, Denies hematuria Musculoskeletal: Denies frequent falls, Denies gait dysfunction, Denies muscle weakness, Denies myalgias Integumentary: Denies pruritus, Denies rash, Denies wounds Neurological: Denies change in mentation, Denies change in speech, Denies gait dysfunction, Denies head injury, Denies headaches, Denies numbness, Denies seizures, Denies weakness Psychiatric: Denies anxiety, Denies depression Endocrine: Denies fatigue, Denies weight change General appearance: cooperative, no acute distress, thin, patient is resting comfortably. - EENT Eyes: anicteric sclerae, EOMI, normal appearance ENT: hearing grossly normal, normal oropharynx - Neck Neck: no lymphadenopathy - Respiratory Respiratory: bilateral: diminished - Cardiovascular Rhythm: regular Heart sounds: normal: S1, S2 Abnormal Heart Sounds: no systolic murmur, no diastolic murmur, no rub, no S3 Gallop, no S4 Gallop, no click, no other leg Peripheral Edema: bilateral: None - Gastrointestinal General gastrointestinal: no absent bowel sounds, no decreased bowel sounds, no distended, no hepatomegaly, no hyperactive bowel sounds, normal bowel sounds, no organomegaly, no rigid, no scaphoid, soft, no splenomegaly, no tenderness, no umbilical hernia, no ventral hernia - Integumentary Integumentary: pale - Neurologic Neurologic: CNII-XII intact - Musculoskeletal Musculoskeletal: generalized weakness, strength equal bilaterally - Psychiatric Psychiatric: A&O x's 3, appropriate affect, intact judgment & insight - Labs CBC & Chem 7: 09/11/18 07:10 09/08/18 09:03 Labs: Abnormal Lab Results - Last 24 Hours (Table) 09/08/18 09/08/18 09/11/18 Range/Units 09:03 09:03 07:10 RBC 3.02 L (3.80-5.40) m/uL Hgb 8.7 L (11.4-16.0) gm/dL Hct 27.4 L (34.0-46.0) % RDW 16.5 H (11.5-15.5) % IgG 613.0 L (700.0-1600.0) mg/dL IgM 32.9 L (40.0-280.0) mg/dL Free [place] LC, Quant 3.04 H (0.33-1.94) mg/dL Assessment and Plan Plan: 1. Dyspnea on exertion secondary to anemia. Status post transfusion of 3 units. Oncology consult appreciated. 2. Acute blood loss anemia anemia with history of anemia of chronic disease. GI consult appreciated. EGD as above. 3. History of C.Difficile colitis status post fecal transplant at [facility]. Monitor closely. Avoid antibiotics. 4. History of SVT. Stable. Continue atenolol 100 mg at bedtime. 5. Hypertension and hypertensive cardiovascular disease. Continue atenolol. 6. GERD. Continue Protonix 40 mg daily. 7. Rheumatoid arthritis. Stable. 8. Hypothyroidism. Continue levothyroxine 50 MCG daily 9. Generalized anxiety disorder. Continue Xanax 2 mg every 8 hours as needed 10. Recurrent depression. Continue BuSpar 10 mg twice daily, Celexa 40 mg daily. 11. DVT prophylaxis. SCDs and TIMOTEO hose 12. GI prophylaxis. Protonix 40 mg daily. 13. Chronic back pain. [place] 5/325 1 every 6 hours as needed. 14. Hypotension. Status post IV fluid bolus 500 ML's. quality assurance monitor be added. Patient is currently stable. Discharge plan: Most likely return home by Wednesday. Increase ambulation today, PT and OT. Patient is set up with [facility]. Impression and plan of care have been directed as dictated by the signing physician. Domenica Reed nurse practitioner acting as scribe for signing physician.
[2018-09-11] MEDS: traZODone HCL 100 MG TAB PO SCH (20:20)
[2018-09-11] MEDS: ATENOLOL 50 MG TAB PO SCH (20:20)
[2018-09-11] MEDS ORDERED: IPRATROPIUM-ALBUTEROL 3 ML NEB INHALATION STA (20:30)
[2018-09-11] MEDS ORDERED: IPRATROPIUM-ALBUTEROL 3 ML NEB INHALATION PRN (20:30)
[2018-09-11] MEDS ORDERED: FUROSEMIDE 10 MG/ML 2 ML VIAL IV ONE (20:30)
[2018-09-11 20:33] VITALS: RESP 18
[2018-09-11] MEDS: methylPREDNISolone SOD SUCCI 40 MG/ML 1 ML VIAL IV SCH (20:46)
--- NOTE | 2018-09-11 21:00 | XR ---
EXAMINATION TYPE: XR chest 1V portable DATE OF EXAM: 09/11/2018 COMPARISON: 09/07/2018 HISTORY: Shortness of breath TECHNIQUE: Single frontal view of the chest is obtained. FINDINGS: There is new right basilar patchy airspace disease and interstitial prominence that is min imally exaggerated from the prior. Cardiomediastinal silhouette is enlarged. There is a large hiatal hernia/partial intrathoracic stomach. Diffuse osseous demineralization and degenerative changes of th e left shoulder with right humeral arthroplasty. IMPRESSION: Basilar airspace disease and mild interstitial pulmonary edema. Consolidation could represent pneumon ia or confluent pulmonary edema.
[2018-09-11 21:02] LABS: Glucose,Whole Blood 165 mg/dL (75-99)
[2018-09-11] MEDS: INSULIN ASPART (NovoLOG) 100 UNIT/ML VIAL SQ SCH (21:28)
[2018-09-12] MEDS: HYDROcodone/APAP 5-325MG 1 EACH TAB PO PRN ×4 (00:15→22:20)
[2018-09-12] MEDS: ALPRAZolam 1 MG TAB PO PRN (00:16)
[2018-09-12] MEDS: LEVOTHYROXINE 50 MCG TAB PO SCH (06:06)
[2018-09-12 06:50] LABS: Glucose,Whole Blood 205 mg/dL (75-99)
[2018-09-12] MEDS: INSULIN ASPART (NovoLOG) 100 UNIT/ML VIAL SQ SCH ×4 (08:01→22:21)
[2018-09-12] MEDS: PANTOPRAZOLE 40 MG TABLET PO SCH (08:02)
[2018-09-12] MEDS: methylPREDNISolone SOD SUCCI 40 MG/ML 1 ML VIAL IV SCH ×2 (08:02→15:49)
[2018-09-12] MEDS: busPIRone HCl 10 MG TAB PO SCH ×2 (08:03→22:20)
[2018-09-12] MEDS: CYANOCOBALAMIN 500 MCG TAB PO SCH (08:04)
[2018-09-12] MEDS: CITALOPRAM HYDROBROMIDE 20 MG TAB PO SCH (08:06)
[2018-09-12] MEDS: IPRATROPIUM-ALBUTEROL 3 ML NEB INHALATION SCH ×4 (08:41→19:30)
[2018-09-12] MEDS ORDERED: FUROSEMIDE 10 MG/ML 2 ML VIAL IV SCH (09:00)
[2018-09-12 09:14] LABS: Anisocytosis Slight; HCT 29.6 % (34.0-46.0); Hypochromasia Marked; MCH 28.2 pg (25.0-35.0); MCHC 30.3 g/dL (31.0-37.0); MCV 92.9 fL (80.0-100.0); Mean Platelet Volume 7.5; Platelet Count 328 k/uL (150-450); Poikilocytosis Marked; RBC 3.18 m/uL (3.80-5.40); RDW 16.6 % (11.5-15.5); WBC 5.6 k/uL (3.8-10.6)
[2018-09-12] MEDS ORDERED: FUROSEMIDE 10 MG/ML 2 ML VIAL IV ONE (10:47)
[2018-09-12] MEDS ORDERED: ALPRAZolam 1 MG TAB PO PRN ×2 (10:49→10:53)
[2018-09-12 11:15] LABS: Glucose,Whole Blood 251 mg/dL (75-99)
[2018-09-12] MEDS ORDERED: INSULIN ASPART (NovoLOG) 100 UNIT/ML VIAL SQ ONE (12:23)
--- NOTE | 2018-09-12 15:22 | P.PN ---
Subjective Progress Note Date: 09/12/18 This is a 78-year-old female one of Dr. Marino's patients, past medical history of hypertension, hypertensive cardiovascular disease, mitral valve prolapse, supraventricular tachycardia, rheumatoid arthritis, GERD, COPD, and recurrent C. diff colitis. 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 The patient has had multiple hospitalizations regarding anemia with hemoglobin as low as 4.8 and followed by GI and oncology with plan for transfusions/iron infusions as an outpatient. She has not had any recent recurrence of C. difficile colitis. Her most recent hospitalization was in May which time she was treated for acute anemia secondary to chronic disease and possible GI bleed and she was transfused for a total of 3 units of packed RBCs and received Ferrlecit as well. She also received 1 dose of vitamin B12 and was followed by oncology. Patient complains of shortness of breath that is worse with exertion. No chest pain or palpitations. No lightheadedness and no syncopal episodes. No fever or chills, no cough, no headache no numbness or weakness. Patient denies any black or bloody stools. Patient is complaining of pain in her hips and knees and states she is normally on Percocet but has been out for the past 10 days. She also states that she is was on an ER stretcher which made things worse. Patient states she has been following with Dr. Acuna every month and hemoglobin was up to 12 and then approximately one and half we eks later dropped down to 8. She last saw him 2 weeks ago and has only received 1 dose of Ferrlecit. She denies any iron transfusions for 4 months. Patient presented to [facility] emergency center for evaluation. Patient was afebrile, initial blood pressure 87/43, hemoglobin 6.9, white count 14.6, platelet count 272. Sodium 138, potassium 3.3, chloride 105, CO2 24, BUN 45 and creatinine 0.96, blood sugar 139. PT 1.0. Chest x-ray showed no acute abnormality other than a hiatal hernia. EKG was a sinus rhythm in the 60s without ST elevation. T-wave inversion and V5 V6 and Q waves in 23 and aVF. EKG was unchanged from prior. The patient has been ordered for 1 unit packed RBC transfusion but due to antibodies this is delayed. Oncology is on consult and has ordered iron studies and B12 level. 09/08: Patient is status post transfusion 1 unit packed RBCs and repeat he moglobin this morning is 5.6 and she has been ordered for 2 units of packed RBCs. Potassium is 3.6, chloride 112, sodium 138, BUN 18 and creatinine 0.72. Blood pressure has been on the lower side and fluid bolus of 500 ML's given. Currently blood pressure is 93/54. Patient is complaining of a lightheadedness. She denies any chest pain or shortness of breath. Telemetry has been added. Patient has been afebrile, heart rate 68, blood pressure 88/54, pulse ox 90% on 2 L nasal cannula. 09/09: Patient lost IV access during the night and did not receive a repeat dose of Ferrlecit nor the second unit of packed RBCs ordered for yesterday. We have ordered Accu cath for today and patient will receive these medications today. Also, patient had a large black, tarry bowel movement last night. No nausea or vomiting. A GI consult has been added. She is currently on O2 at 3 L nasal cannula. Patient is complaining of weakness and she is now using a commode chair versus going to the bathroom. She has been afebrile, blood pressure 117/55, pulse ox 97% on 3 L nasal cannula. Heart rate in the 70s-90s. Repeat hemoglobin is 6.5 this morning. 09/10: The patient has been seen by Dr. Bergman and is scheduled for EGD today with Dr. Mccormack in the afternoon. Repeat hemoglobin is 7.7. She is status post total of 3 units packed RBCs. TSH is 5.750 and normal free T4. Sed rate 69, retaken count 6.1. IgG is low at 613, IgA 124, IgM low at 32.9, free Is high at 3.04 and free lambda normal at 2.31. Immunofixation, methylmalonic acid, protein electrophoresis, vitamin B12 are all pending. Blood pressure remains on the lower side at 97/50 802/67. Heart rate in the 50s, patient's been afebrile. Pulse ox is 99% on 2 L nasal cannula. 09/11: Patient underwent EGD yesterday with Dr. Mccormack finding multiple Silviano erosions and moderate sized hiatal hernia. Recommendations to continue iron in fusions, iron supplementation daily and follow-up in the office in 2-3 weeks. Patient has been cleared for discharge home. Repeat hemoglobin is 8.7. She has had no rectal bleeding. Blood pressure 106/58 and pulse 53, afebrile. Patient is on oxygen pulse ox 100% on 3 L and this to be weaned off today. Patient does have shortness of breath with ambulated to the bathroom and we will check a amb ulating pulse ox Plan is for patient to start ambulating today increased activity and an PT and OT and anticipate discharge home tomorrow. 09/12: Patient developed increasing shortness of breath last evening and she underwent a chest x-ray that showed basilar airspace disease and mild intersti tial pulmonary edema. Consolidation could represent pneumonia or confluent pulmonary edema. Patient was started on IV Lasix and IV Solu-Medrol. Lasix subsequently increased to 40 mg IV daily. We will plan to decrease Xanax 1 mg at bedtime only. Oncology has started the patient on vitamin B12. Repeat hemoglobin is 9. Blood sugars are running in the 200s secondary to steroids. Pulse ox is 98% on 2 L, patient afebrile, heart rate 68, blood pressure 113/58. Patient has worked with physical therapy with plan for home care or subacute rehab. supply chain logistics manager will follow up. Anticipate possible discharge tomorrow. Objective - Vital Signs Vital signs: Vital Signs Temp 98.0 F 09/12/18 05:00 Pulse 66 09/12/18 08:59 Resp 18 09/12/18 05:00 BP 147/66 09/12/18 05:00 Pulse Ox 100 09/12/18 05:00 Intake & Output 09/11/18 09/12/18 09/12/18 18:59 06:59 18:59 Intake Total 1580 850 Balance 1580 850 Weight 78.5 kg Intake: Intake, IV Titration 100 Amount Sodium Ferric Gluconat- 100 Sucrose 125 mg In Sodium Chloride 0.9% 100 ml @ 100 mls/hr IVPB DAILY [facility] Rx#:[id number] Oral 1480 850 Other: Voiding Method Toilet Bedside Commode Diaper Incontinent # Voids 3 1 # Bowel Movements 0 - Exam Review of Systems Constitutional: Reports fatigue, Reports weakness, reports anorexia, Denies chills, Denies fever, Denies weight loss, reports generalized pain Eyes: denies blurred vision, denies pain Ears, nose, mouth and throat: Denies dysphagia, Denies headache, Denies nasal congestion, Denies nasal discharge, Denies sore throat, Denies vertigo Cardiovascular: Reports decreased exercise tolerance, Reports dyspnea on exertion, Denies chest pain, Denies edema, reports lightheadedness, Denies palpitations, Denies shortness of breath, Denies syncope Respiratory: Denies cough, Denies cough with sputum, reports dyspnea, Denies excessive sputum, Denies hemoptysis, Denies home oxygen, Denies wheezing Gastrointestinal: Denies abdominal pain, Denies diarrhea, Denies hematemesis, Denies loss of appetite, denies melena, Denies nausea, Denies vomiting Genitourinary: Denies dysuria, Denies hematuria Musculoskeletal: Denies frequent falls, Denies gait dysfunction, Denies muscle weakness, Denies myalgias Integumentary: Denies pruritus, Denies rash, Denies wounds Neurological: Denies change in mentation, Denies change in speech, Denies gait dysfunction, Denies head injury, Denies headaches, Denies numbness, Denies seizures, Denies weakness Psychiatric: Denies anxiety, Denies depression Endocrine: Denies fatigue, Denies weight change General appearance: cooperative, no acute distress, thin, patient is resting comfortably. - EENT Eyes: anicteric sclerae, EOMI, normal appearance ENT: hearing grossly normal, normal oropharynx - Neck Neck: no lymphadenopathy - Respiratory Respiratory: bilateral: diminished - Cardiovascular Rhythm: regular Heart sounds: normal: S1, S2 Abnormal Heart Sounds: no systolic murmur, no diastolic murmur, no rub, no S3 Gallop, no S4 Gallop, no click, no other leg Peripheral Edema: bilateral: None - Gastrointestinal General gastrointestinal: no absent bowel sounds, no decreased bowel sounds, no distended, no hepatomegaly, no hyperactive bowel sounds, normal bowel sounds, no organomegaly, no rigid, no scaphoid, soft, no splenomegaly, no tenderness, no umbilical hernia, no ventral hernia - Integumentary Integumentary: pale - Neurologic Neurologic: CNII-XII intact - Musculoskeletal Musculoskeletal: generalized weakness, strength equal bilaterally - Psychiatric Psychiatric: A&O x's 3, appropriate affect, intact judgment & insight - Labs CBC & Chem 7: 09/12/18 08:16 09/08/18 09:03 Labs: Abnormal Lab Results - Last 24 Hours (Table) 09/11/18 09/12/18 09/12/18 Range/Units 21:00 06:48 08:16 RBC 3.18 L (3.80-5.40) m/uL Hgb 9.0 L (11.4-16.0) gm/dL Hct 29.6 L (34.0-46.0) % MCHC 30.3 L (31.0-37.0) g/dL RDW 16.6 H (11.5-15.5) % POC Glucose (mg/dL) 165 H 205 H (75-99) mg/dL Assessment and Plan Plan: 1. Dyspnea on exertion secondary to anemia. Status post transfusion of 3 unit s. Oncology consult appreciated. 2. Acute blood loss anemia anemia with history of anemia of chronic disease. GI consult appreciated. EGD as above. 3. History of C.Difficile colitis status post fecal transplant at [facility]. Monitor closely. Avoid antibiotics. 4. History of SVT. Stable. Continue atenolol 100 mg at bedtime. 5. Hypertension and hypertensive cardiovascular disease. Continue atenolol. 6. GERD. Continue Protonix 40 mg daily. 7. Rheumatoid arthritis. Stable. 8. Hypothyroidism. Continue levothyroxine 50 MCG daily 9. Generalized anxiety disorder. Continue Xanax 2 mg every 8 hours as needed 10. Recurrent depression. Continue BuSpar 10 mg twice daily, Celexa 40 mg daily. 11. DVT prophylaxis. SCDs and TIMOTEO hose 12. GI prophylaxis. Protonix 40 mg daily. 13. Chronic back pain. [place] 5/325 1 every 6 hours as needed. 14. Hypotension. Status post IV fluid bolus 500 ML's. bus driver/monitor be added. Patient is currently stable. 15. Acute on chronic systolic heart failure. Lasix 40 mg IV daily. Recheck electrolytes and renal function tomorrow. Discharge plan: Most likely return home or subacute rehab tomorrow. PT is recommending home with homecare or subacute rehab. Patient is set up with [facility]. Impression and plan of care have been directed as dictated by the signing physician. Domenica Reed nurse practitioner acting as scribe for signing physician.
[2018-09-12 16:58] LABS: Glucose,Whole Blood 201 mg/dL (75-99)
[2018-09-12 20:15] LABS: Glucose,Whole Blood 233 mg/dL (75-99)
[2018-09-12 20:40] VITALS: TEMP 97.7
[2018-09-12] MEDS: ATENOLOL 50 MG TAB PO SCH (22:20)
[2018-09-12] MEDS: traZODone HCL 100 MG TAB PO SCH (22:21)
[2018-09-13] MEDS: methylPREDNISolone SOD SUCCI 40 MG/ML 1 ML VIAL IV SCH ×2 (00:14→07:51)
[2018-09-13 04:42] VITALS: BP 131/76
[2018-09-13] MEDS: LEVOTHYROXINE 50 MCG TAB PO SCH (06:23)
[2018-09-13] MEDS: HYDROcodone/APAP 5-325MG 1 EACH TAB PO PRN (06:30)
[2018-09-13 06:52] LABS: Glucose,Whole Blood 151 mg/dL (75-99)
[2018-09-13] MEDS: IPRATROPIUM-ALBUTEROL 3 ML NEB INHALATION SCH ×2 (07:22→11:14)
[2018-09-13] MEDS: INSULIN ASPART (NovoLOG) 100 UNIT/ML VIAL SQ SCH ×2 (07:50→12:49)
[2018-09-13] MEDS: busPIRone HCl 10 MG TAB PO SCH (07:51)
[2018-09-13] MEDS: PANTOPRAZOLE 40 MG TABLET PO SCH (07:51)
[2018-09-13] MEDS: CYANOCOBALAMIN 500 MCG TAB PO SCH (07:52)
[2018-09-13] MEDS: CITALOPRAM HYDROBROMIDE 20 MG TAB PO SCH (07:52)
[2018-09-13 08:39] LABS: Anisocytosis Slight; HCT 28.3 % (34.0-46.0); HGB 8.6 gm/dL (11.4-16.0); Hypochromasia Marked; MCH 27.6 pg (25.0-35.0); MCHC 30.2 g/dL (31.0-37.0); MCV 91.3 fL (80.0-100.0); Mean Platelet Volume 6.9; Platelet Count 387 k/uL (150-450); Poikilocytosis Moderate; RDW 16.3 % (11.5-15.5); WBC 10.7 k/uL (3.8-10.6)
[2018-09-13 08:47] LABS: African American GFR (CKD) >90 (>60 ml/min/1.73 sqM); Anion Gap 6 mmol/L; Blood Urea Nitrogen 12 mg/dL (7-17); Calcium 8.9 mg/dL (8.4-10.2); Carbon Dioxide 23 mmol/L (22-30); Chloride 110 mmol/L (98-107); Glucose 132 mg/dL (74-99); Potassium 4.1 mmol/L (3.5-5.1); Sodium 139 mmol/L (137-145)
[2018-09-13] MEDS ORDERED: FUROSEMIDE 10 MG/ML 4 ML VIAL IV SCH (09:00)
[2018-09-13] MEDS ORDERED: guaiFENesin SYRUP 100MG/5ML 200 MG/10 ML CUP PO PRN (10:21)
--- NOTE | 2018-09-13 10:47 | P.DS ---
Providers Date of admission: 09/07/18 01:14 Expected date of discharge: 09/13/18 Attending physician: Shirley Weinberg Consults: 09/07/18 01:13 Consult Physician Urgent Consulting Provider: Eddie Acuna Consult Reason/Comments: Anemia Do you want consulting provider notified?: Yes [place] [facility] [place]: This is a 78-year-old female one of Dr. Marino's patients, past medical history of hypertension, hypertensive cardiovascular disease, mitral valve prolapse, supraventricular tachycardia, rheumatoid arthritis, GERD, COPD, and recurrent C. diff colitis. 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 diff at [facility] 3. The patient has had multiple hospitalizations regarding anemia with hemoglobin as low as 4.8 and followed by GI and oncology with plan for transfusions/iron infusions as an outpatient. She has not had any recent recurrence of C. difficile colitis. Her most recent hospitalization was in May which time she was treated for acute anemia secondary to chronic disease and possible GI bleed and she was transfused for a total of 3 units of packed RBCs and received Ferrlecit as well. She also received 1 dose of vitamin B12 and was followed by oncology. Patient complains of shortness of breath that is worse with exertion. No chest pain or palpitations. No lightheadedness and no syncopal episodes. No fever or chills, no cough, no headache no numbness or weakness. Patient denies any black or bloody stools. Patient is complaining of pain in her hips and knees and states she is normally on Percocet but has been out for the past 10 days. She also states that she is was on an ER stretcher which made things worse. Patient states she has been following with Dr. Acuna every month and hemoglobin was up to 12 and then approximately one and half weeks later dropped down to 8. She last saw him 2 weeks ago and has only received 1 dose of Ferrlecit. She denies any iron transfusions for 4 months. Patient presented to [facility] emergency center for evaluation. Patient was afebrile, initial blood pressure 87/43, hemoglobin 6.9, white count 14.6, platelet count 272. Sodium 138, potassium 3.3, chloride 105, CO2 24, BUN 45 and creatinine 0.96, blood sugar 139. PT 1.0. Chest x-ray showed no acute abnormality other than a hiatal hernia. EKG was a sinus rhythm in the 60s without ST elevation. T-wave inversion and V5 V6 and Q waves in 23 and aVF. EKG was unchanged from prior. The patient has been ordered for 1 unit packed RBC transfusion but due to antibodies this is delayed. Oncology is on consult and has ordered iron studies and B12 level. 09/08: Patient is status post transfusion 1 unit packed RBCs and repeat hemoglobin this morning is 5.6 and she has been ordered for 2 units of packed RBCs. Potassium is 3.6, chloride 112, sodium 138, BUN 18 and creatinine 0.72. Blood pressure has been on the lower side and fluid bolus of 500 ML's given. Currently blood pressure is 93/54. Patient is complaining of a lightheadedness. She denies any chest pain or shortness of breath. Telemetry has been added. Patient has been afebrile, heart rate 68, blood pressure 88/54, pulse ox 90% on 2 L nasal cannula. 09/09: Patient lost IV access during the night and did not receive a repeat dose of Ferrlecit nor the second unit of packed RBCs ordered for yesterday. We have ordered Accu cath for today and patient will receive these medications today. Also, patient had a large black, tarry bowel movement last night. No nausea or vomiting. A GI consult has been added. She is currently on O2 at 3 L nasal cannula. Patient is complaining of weakness and she is now using a commode chair versus going to the bathroom. She has been afebrile, blood pressure 11 7/55, pulse ox 97% on 3 L nasal cannula. Heart rate in the 70s-90s. Repeat hemoglobin is 6.5 this morning. 09/10: The patient has been seen by Dr. Bergman and is scheduled for EGD today with Dr. Mccormack in the afternoon. Repeat hemoglobin is 7.7. She is status post total of 3 units packed RBCs. TSH is 5.750 and normal free T4. Sed rate 69, retaken count 6.1. IgG is low at 613, IgA 124, IgM low at 32.9, free Is high at 3.04 and free lambda normal at 2.31. Immunofixation, methylmalonic acid, protein electrophoresis, vitamin B12 are all pending. Blood pressure remains on the lower side at 97/50 802/67. Heart rate in the 50s, patient's been afebrile. Pulse ox is 99% on 2 L nasal cannula. 09/11: Patient underwent EGD yesterday with Dr. Mccormack finding multiple Silviano erosions and moderate sized hiatal hernia. Recommendations to continue iron infusions, iron supplementation daily and follow-up in the office in 2-3 weeks. Patient has been cleared for discharge home. Repeat hemoglobin is 8.7. She has had no rectal bleeding. Blood pressure 106/58 and pulse 53, afebrile. Patient is on oxygen pulse ox 100% on 3 L and this to be weaned off today. Patient does have shortness of breath with ambulated to the bathroom and we will check a ambulating pulse ox Plan is for patient to start ambulating today increased activity and an infant PT and OT and anticipate discharge home tomorrow. 09/12: Patient developed increasing shortness of breath last evening and she underwent a chest x-ray that showed basilar airspace disease and mild interstitial pulmonary edema. Consolidation could represent pneumonia or confluent pulmonary edema. Patient was started on IV Lasix and IV Solu-Medrol. Lasix subsequently increased to 40 mg IV daily. We will plan to decrease Xanax 1 mg at bedtime only. Oncology has started the patient on vitamin B12. Repeat hemoglobin is 9. Blood sugars are running in the 200s secondary to steroids. Pulse ox is 98% on 2 L, patient afebrile, heart rate 68, blood pressure 113/58. Patient has worked with physical therapy with plan for home care or subacute rehab. transition manager will follow up. Anticipate possible discharge tomorrow. 09/13: Hemoglobin today is 8.6. Patient ambulated well in the hallway without oxygen maintaining a pulse ox of 94%. We will transition her to her home dose of oral Lasix and provide prednisone taper for home. Patient continues to have some slight wheezing. She will be discharged home today in stable condition. Discharge diagnoses: 1. Dyspnea on exertion secondary to anemia. Status post transfusion of 3 units. 2. Acute blood loss anemia anemia with history of anemia of chronic disease. 3. History of C.Difficile colitis status post fecal transplant at [facility]. 4. History of SVT. Stable. 5. Hypertension and hypertensive cardiovascular disease. 6. GERD. 7. Rheumatoid arthritis. Stable. 8. Hypothyroidism. 9. Generalized anxiety disorder. 10. Recurrent depression. 11. Chronic back pain. 12. Hypotension. Status post IV fluid bolus 500 ML's. 13. Acute on chronic systolic heart failure. Discharge plan: home with [facility]NA. Impression and plan of care have been directed as dictated by the signing physician. Domenica Reed nurse practitioner acting as scribe for signing physician. Patient Condition at Discharge: Good Plan - Discharge Summary Discharge Rx Participant: No New Discharge Prescriptions: New predniSONE 0 mg PO DIRECTED #30 tab guaiFENesin SYRUP 100MG/5ML [Robitussin] 200 mg PO TID PRN cup PRN Reason: Cough Cyanocobalamin [Vitamin B-12] 1,000 mcg PO DAILY tab Continue Ipratropium-Albuterol Nebulize [Duoneb 0.5 mg-3 mg/3 ml Soln] 3 ml INHALATION RT-QID busPIRone HCl [Buspar] 10 mg PO BID #60 tab Citalopram Hydrobromide [CeleXA] 40 mg PO DAILY Furosemide [Lasix] 40 mg PO DAILY traZODone HCL 100 mg PO HS Levothyroxine Sodium [Synthroid] 50 mcg PO DAILY Atenolol 100 mg PO HS ALPRAZolam [Xanax] 2 mg PO Q8H PRN PRN Reason: Anxiety Potassium Chloride ER [K-Dur 20] 20 meq PO BID Discharge Medication List Ipratropium-Albuterol Nebulize [Duoneb 0.5 mg-3 mg/3 ml Soln] 3 ml INHALATION RT-QID 03/23/18 [History] busPIRone HCl [Buspar] 10 mg PO BID #60 tab 03/28/18 [Rx] Citalopram Hydrobromide [CeleXA] 40 mg PO DAILY 05/12/18 [History] Furosemide [Lasix] 40 mg PO DAILY 05/12/18 [History] ALPRAZolam [Xanax] 2 mg PO Q8H PRN 06/06/18 [History] Atenolol 100 mg PO HS 06/06/18 [History] Levothyroxine Sodium [Synthroid] 50 mcg PO DAILY 06/06/18 [History] traZODone HCL 100 mg PO HS 06/06/18 [History] Potassium Chloride ER [K-Dur 20] 20 meq PO BID 09/06/18 [History] Cyanocobalamin [Vitamin B-12] 1,000 mcg PO DAILY tab 09/13/18 [Rx] guaiFENesin SYRUP 100MG/5ML [Robitussin] 200 mg PO TID PRN cup 09/13/18 [Rx] predniSONE 0 mg PO DIRECTED #30 tab 09/13/18 [Rx] Follow up Appointment(s)/Referral(s): Eddie Acuna MD [STAFF PHYSICIAN] - 1 Week Sameera Mccormack MD [STAFF PHYSICIAN] - 10/31/18 12:15 pm Franklyn Marino DO [Primary Care Provider] - 1 Week [facility] Visiting Nurse, [NON-STAFF] - 1 Week Discharge Disposition: HOME WITH HOME HEALTH SERVICES
[2018-09-13 11:16] LABS: Glucose,Whole Blood 153 mg/dL (75-99)
[2018-09-13 11:27] VITALS: PULSE 76
[2018-09-13] MEDS ORDERED: SODIUM FERRIC GLUCONAT-SUCROSE 125 MG in SODIUM CHLORIDE 0.9% 100 ML IVPB ONE (12:00)
[2018-09-13 16:00] LABS: Albumin 2.67 g/dL (3.80-4.90)
--- NOTE | 2018-09-13 16:11 | P.PN ---
Subjective Progress Note Date: 09/13/18 Principal diagnosis: iron deficient anemia In follow-up today patient is feeling better status post 3 units of packed red blood cells and parenteral iron infusions. She is going to get one more dose of iron today. She had an EGD on 09/06 showing Silviano erosions, no acute bleeding. Patient has been taking oral B12 daily. Hemoglobin is 8.6 today. She denies difficulty breathing, chest pain, palpitations, weakness is stable, appetite is fair, she is in no new or unusual pain. Objective - Vital Signs Vital signs: Vital Signs Temp 97.7 F 09/13/18 03:57 Pulse 76 09/13/18 11:26 Resp 18 09/13/18 08:40 BP 131/76 09/13/18 03:57 Pulse Ox 95 09/13/18 10:20 Intake & Output 09/12/18 09/13/18 09/13/18 18:59 06:59 18:59 Intake Total 590 Balance 590 Weight 76.5 kg 78 kg Intake: Oral 590 Other: Voiding Method Bedside Commode Toilet Diaper Bedside Commode Incontinent Diaper Incontinent # Voids 1 2 # Bowel Movements 1 - Constitutional General appearance: Present: cooperative, no acute distress, thin - EENT Eyes: Present: anicteric sclerae, EOMI, normal appearance ENT: Present: hearing grossly normal - Respiratory Details: respirations even and unlabored - Cardiovascular Heart sounds: normal: S1, S2 - Peripheral edema leg Peripheral Edema: bilateral: None - Gastrointestinal General gastrointestinal: Present: normal bowel sounds, soft - Integumentary Integumentary: Present: pale - Neurologic Neurologic: Present: CNII-XII intact - Musculoskeletal Musculoskeletal: Present: generalized weakness, strength equal bilaterally - Psychiatric Psychiatric: Present: A&O x's 3, appropriate affect, intact judgment & insight - Labs CBC & Chem 7: 09/13/18 08:19 09/13/18 08:19 Labs: Abnormal Lab Results - Last 24 Hours (Table) 09/08/18 09/12/18 09/12/18 Range/Units 09:03 16:56 20:14 WBC (3.8-10.6) k/uL RBC (3.80-5.40) m/uL Hgb (11.4-16.0) gm/dL Hct (34.0-46.0) % MCHC (31.0-37.0) g/dL RDW (11.5-15.5) % Chloride (98-107) mmol/L Glucose (74-99) mg/dL POC Glucose (mg/dL) 201 H 233 H (75-99) mg/dL Albumin (PEP) 2.67 L (3.80-4.90) g/dL Sbqnr-[id number]-Rdzrokyzv 0.62 H (0.10-0.40) g/dL Beta Globulins 0.55 L (0.60-1.30) g/dL Gamma Globulins 0.60 L (0.70-1.50) g/dL 09/13/18 09/13/18 09/13/18 Range/Units 06:51 08:19 08:19 WBC 10.7 H (3.8-10.6) k/uL RBC 3.10 L (3.80-5.40) m/uL Hgb 8.6 L (11.4-16.0) gm/dL Hct 28.3 L (34.0-46.0) % MCHC 30.2 L (31.0-37.0) g/dL RDW 16.3 H (11.5-15.5) % Chloride 110 H (98-107) mmol/L Glucose 132 H (74-99) mg/dL POC Glucose (mg/dL) 151 H (75-99) mg/dL Albumin (PEP) (3.80-4.90) g/dL Nhupl-0-Kgdrbqtlf (0.10-0.40) g/dL Beta Globulins (0.60-1.30) g/dL Gamma Globulins (0.70-1.50) g/dL 09/13/18 Range/Units 11:15 WBC (3.8-10.6) k/uL RBC (3.80-5.40) m/uL Hgb (11.4-16.0) gm/dL Hct (34.0-46.0) % MCHC (31.0-37.0) g/dL RDW (11.5-15.5) % Chloride (98-107) mmol/L Glucose (74-99) mg/dL POC Glucose (mg/dL) 153 H (75-99) mg/dL Albumin (PEP) (3.80-4.90) g/dL Fealo-2-Nqleevyps (0.10-0.40) g/dL Beta Globulins (0.60-1.30) g/dL Gamma Globulins (0.70-1.50) g/dL Assessment and Plan (1) Iron deficiency anemia Narrative/Plan: Patient has been supplemented with 3-4 parenteral iron doses, one more dose today before discharge. Patient asked about continuing oral iron but, unfor tunately she is likely not absorbing it and the dose is not high enough to keep up with her degree of deficiency. Patient also states dark looking stools while taking iron which can be confusing. If she does have an acute bleed, which is what is suspected when she has episodes of severe anemia, would prefer she be alert to it so she can seek medical attention. She verbalized understanding. F/U Q 2 weeks is planned. Pt aware and understands plan Status: Chronic Priority: Medium Code(s): D50.9 - IRON DEFICIENCY ANEMIA, UNSPECIFIED SNOMED Code(s): 69470328 (2) B12 deficiency anemia Narrative/Plan: Patient received 1 dose of parenteral B12, she has been taking B12 orally daily. Patient was encouraged to continue taking OTC B12 supplementation at home. Status: Chronic Priority: Medium Code(s): D51.9 - VITAMIN B12 DEFICIENCY ANEMIA, UNSPECIFIED SNOMED Code(s): 27561338
--- NOTE | 2018-09-15 08:43 | CDI ---
ADocumentation Clarification Form Date: 09/15/18 From: Hawa Medina Phone: If you have a question regarding this query, please contact Antonia Zapata at [phone] between 8am and 5pm. Admit Date: 09/07/2018 1:14:00 AM Patient Name: Janey Trejo Visit Number: [id number] Discharge Date: 09/13/2018 2:40:00 PM ATTENTION: The Clinical Documentation Specialists (CDI) and [facility] Coding Staff appreciate your assistance in clarifying documentation. Please respond to the clarification below the line at the bottom and electronically sign. The CDI & [facility] Coding staff will review the response and follow-up if needed. Please note: Queries are made part of the Legal Health Record. If you have any questions, please contact the author of this message via ITS. Dr. Shirley Weinberg The patient presented with acute blood loss anemia. EGD was performed and Silviano erosion were present. History/Risk Factors: Hiatal hernia, acute blood loss anemia. Patient has a history of previous hospitalization for transfusion due to anemia of chronic disease and possible GI bleed. Clinical Indicators: Blood loss anemia. No abdominal pain. Lab findings: Hgb 6.9, Hct 23.2, WBC 14.6 EGD findings: Moderate size hiatal hernia with Silviano erosions but no active bleeding. Vital Signs: T. 99.0, P. 71, R. 18, BP 87.43 Treatment: PO Protonix Consults: Dr. Mccormack documented recurrent severe iron deficiency anemia, status post EGD yesterday that showed a moderate sized hiatal hernia with multiple Silviano erosions. In your professional opinion, can you please clarify the acuity of the Silviano erosions? Acute Chronic Other, please specify Unable to determine Acute MTDD
== END 2018-09-13 14:40 | disposition home health service (06) | DRG 811 ==
LOC: EC 22:51 → 4MS4W 09-07 01:14 → 3NMEDONC 09-07 08:12
PROVIDERS: ADMIT Internal Medicine; ATTEND Internal Medicine
PROC: 30233N1 Transfusion of Nonautologous Red Blood Cells into Peripheral Vein, Percutaneous Approach (ICD-10-PCS; 2018-09-07)
PROC: 05HF33Z Insertion of Infusion Device into Left Cephalic Vein, Percutaneous Approach (ICD-10-PCS; 2018-09-09)
PROC: 0DJ08ZZ Inspection of Upper Intestinal Tract, Via Natural or Artificial Opening Endoscopic (ICD-10-PCS; principal; 2018-09-10 13:30)
DX: D62 Acute posthemorrhagic anemia (principal); I50.23 Acute on chronic systolic (congestive) heart failure; K25.3 Acute gastric ulcer without hemorrhage or perforation; F33.9 Major depressive disorder, recurrent, unspecified; I48.92 Unspecified atrial flutter; D51.9 Vitamin B12 deficiency anemia, unspecified; D63.8 Anemia in other chronic diseases classified elsewhere; D72.829 Elevated white blood cell count, unspecified; I95.9 Hypotension, unspecified; I11.0 Hypertensive heart disease with heart failure; J44.9 Chronic obstructive pulmonary disease, unspecified; I34.1 Nonrheumatic mitral (valve) prolapse; I48.91 Unspecified atrial fibrillation; M06.9 Rheumatoid arthritis, unspecified; E03.9 Hypothyroidism, unspecified; E78.5 Hyperlipidemia, unspecified; F17.210 Nicotine dependence, cigarettes, uncomplicated; F41.1 Generalized anxiety disorder; G89.29 Other chronic pain; K21.9 Gastro-esophageal reflux disease without esophagitis; K44.9 Diaphragmatic hernia without obstruction or gangrene; K57.30 Diverticulosis of large intestine without perforation or abscess without bleeding; M16.0 Bilateral primary osteoarthritis of hip; T38.0X5A Adverse effect of glucocorticoids and synthetic analogues, initial encounter; R73.9 Hyperglycemia, unspecified; J30.2 Other seasonal allergic rhinitis; R32 Unspecified urinary incontinence; M54.9 Dorsalgia, unspecified; M17.0 Bilateral primary osteoarthritis of knee; Z79.890 Hormone replacement therapy; Z79.899 Other long term (current) drug therapy; Z88.1 Allergy status to other antibiotic agents; Z88.0 Allergy status to penicillin; Z88.2 Allergy status to sulfonamides; Z88.7 Allergy status to serum and vaccine; Z88.8 Allergy status to other drugs, medicaments and biological substances; Z96.653 Presence of artificial knee joint, bilateral; Z96.611 Presence of right artificial shoulder joint; Z96.643 Presence of artificial hip joint, bilateral; Z90.710 Acquired absence of both cervix and uterus; Z90.49 Acquired absence of other specified parts of digestive tract; Z85.828 Personal history of other malignant neoplasm of skin; Z86.19 Personal history of other infectious and parasitic diseases; Z87.11 Personal history of peptic ulcer disease; Z98.42 Cataract extraction status, left eye; Z98.41 Cataract extraction status, right eye; Z96.1 Presence of intraocular lens; Z82.5 Family history of asthma and other chronic lower respiratory diseases; Z82.49 Family history of ischemic heart disease and other diseases of the circulatory system; Z82.3 Family history of stroke; Z80.1 Family history of malignant neoplasm of trachea, bronchus and lung
CPT/HCPCS: 36410; 36415; 43235; 71045; 71046; 76937; 80048; 80053; 81001; 82607; 82728; 82784; 83540; 83550; 83615; 83883; 83921; 84165; 84439; 84443; 85025; 85027; 85045; 85610; 85652; 85730; 86334; 86850; 86870; 86880; 86900; 86901; 86902; 86920; 93005; 94640; 94760; 96360; 96361; 96374; 99285

== ENCOUNTER 2018-11-09 15:21 | Emergency (ER) | payer MEDICARE ==
[2018-11-09 15:27] VITALS: RESP 16; TEMP 97.7
[2018-11-09] MEDS ORDERED: SODIUM CHLORIDE 0.9% 1,000 ML IV STA (15:49)
--- NOTE | 2018-11-09 16:20 | ED ---
General Adult HPI - General Source: patient, RN notes reviewed Mode of arrival: wheelchair Limitations: no limitations <Alex Serrano - Last Filed: 11/09/18 16:19> <Hawa Deleon - Last Filed: 11/09/18 20:06> <Santosh Hines - Last Filed: 11/09/18 22:45> - General Chief complaint: Nausea/Vomiting/Diarrhea Stated complaint: c-diff Time Seen by Provider: 11/09/18 15:48 - History of Present Illness Initial comments: 78-year-old female presents emergency Department with chief complaint of diarrhea. Patient states that she's had extreme diarrhea for last 2 weeks to the point where she feels weak and rundown. She states that she's had C. diff twice in the past and states that this feels very similar. She states that she can't even hold her stool because of so urgent and watery. Patient states that she's also having urinary frequency and dysuria. She reports no known fever or chills she states she has mild abdominal cramping denies any recent antibiotic use denies chest pain, short breath, headache. She states she does feel lightheaded at times. Patient saw PCP who sent her to the emergency room for admission. (lAex Serrano) - Related Data Home Medications Medication Instructions Recorded Confirmed Citalopram Hydrobromide [CeleXA] 40 mg PO DAILY 05/12/18 11/09/18 Furosemide [Lasix] 40 mg PO DAILY 05/12/18 11/09/18 ALPRAZolam [Xanax] 2 mg PO Q8H PRN 06/06/18 11/09/18 Atenolol 100 mg PO HS 06/06/18 11/09/18 Levothyroxine Sodium [Synthroid] 50 mcg PO DAILY 06/06/18 11/09/18 Potassium Chloride ER [K-Dur 20] 20 meq PO BID 09/06/18 11/09/18 Famotidine [Pepcid] 40 mg PO BID 11/09/18 11/09/18 Zolpidem [Ambien] 10 mg PO HS 11/09/18 11/09/18 oxyCODONE-APAP 5-325MG [Percocet 1 tab PO TID 11/09/18 11/09/18 5-325 mg] traZODone HCL [Desyrel] 200 mg PO HS 11/09/18 11/09/18 Previous Rx's Medication Instructions Recorded busPIRone HCl [Buspar] 10 mg PO BID #60 tab 03/28/18 Allergies Allergy/AdvReac Type Severity Reaction Status Date / Time adhesive tape Allergy Rash/Hives Verified 11/09/18 16:11 Influenza Virus Vaccines Allergy "MAKES HER Verified 11/09/18 16:11 FEEL SICK" Sulfa (Sulfonamide Allergy Rash/Hives Verified 11/09/18 16:11 Antibiotics) amoxicillin trihydrate AdvReac Diarrhea Verified 11/09/18 16:11 [From Augmentin] ciprofloxacin [From Cipro] AdvReac Unknown Verified 11/09/18 16:11 metronidazole [From Flagyl] AdvReac Unknown Verified 11/09/18 16:11 potassium clavulanate AdvReac Diarrhea Verified 11/09/18 16:11 [From Augmentin] quinidine AdvReac BLOOD CLOTS Verified 11/09/18 16:11 Review of Systems ROS Other: All systems not noted in ROS Statement are negative. <Alex Serrano - Last Filed: 11/09/18 16:19> ROS Other: All systems not noted in ROS Statement are negative. <Hawa Deleon - Last Filed: 11/09/18 20:06> ROS Other: All systems not noted in ROS Statement are negative. <Santosh Hines - Last Filed: 11/09/18 22:45> ROS Statement: Those systems with pertinent positive or pertinent negative responses have been documented in the HPI. Past Medical History Past Medical History: Atrial Fibrillation, Atrial Flutter, GERD/Reflux, Hyperlipidemia, Hypertension, Mitral Valve Prolapse (MVP), Rheumatoid Arthritis (RA), Thyroid Disorder Additional Past Medical History / Comment(s): OTHER HX: 03/06/14, 03/30/14, 07/03/14, 07/29/14 with CDIFF colitis, HYPOTHYROID, MVP, urinary incontinence, PROLAPSED MITRAL VALVE- NO PROBLEMS FOR 30 YRS.anemia -requiring blood transfusion History of Any Multi-Drug Resistant Organisms: C-DIFF Date of last positivie culture/infection: 2015 MDRO Source:: Stool Past Surgical History: Adenoidectomy, Cholecystectomy, Hysterectomy, Joint Replacement, Orthopedic Surgery, Tonsillectomy Additional Past Surgical History / Comment(s): 02/18/16 total R hip arthroplasty. Other surgical HX: BILATERAL KNEE REPLACEMENT (2004-RIGHT & 2006 - LEFT); LOWER LUMBAR LAMINECTOMYL4-L5 (2007); LEFT HIP REPLACEMENT (2012); RIGHT SHOULDER REPLACEMENT (2008), left total knee arthroplasty revision. Bilateral cataracts with lens implants. FECAL TRASPLANT TX FOR C-DIFF three times.cataracts-lens implants Past Anesthesia/Blood Transfusion Reactions: No Reported Reaction Additional Past Anesthesia/Blood Transfusion Reaction / Comment(s): blood transfusion in past no reactions Past Psychological History: Anxiety, Depression Smoking Status: Current every day smoker Past Alcohol Use History: None Reported Past Drug Use History: None Reported - Past Family History Mother Family Medical History: Cancer Additional Family Medical History / Comment(s): Mother at age 60 with history of emphysema and lung cancer. Father Family Medical History: CVA/TIA Additional Family Medical History / Comment(s): Father at age 74 with problems with his larynx. Sister(s) Family Medical History: Unable to Obtain Daughter(s) Family Medical History: COPD, Myocardial Infarction ([place]) Additional Family Medical History / Comment(s): Mother at age 60 yrs of emphysema/lung CA Son(s) Family Medical History: Myocardial Infarction ([place]) Additional Family Medical History / Comment(s): Father at age 74yrs with "CVA of his larynx" <Alex Serrano - Last Filed: 11/09/18 16:19> General Exam Limitations: no limitations General appearance: alert, in no apparent distress Head exam: Present: atraumatic, normocephalic, normal inspection Eye exam: Present: normal appearance, PERRL, EOMI. Absent: scleral icterus, conjunctival injection, periorbital swelling ENT exam: Present: normal exam, normal oropharynx, mucous membranes moist Respiratory exam: Present: normal lung sounds bilaterally. Absent: respiratory distress, wheezes, rales, rhonchi, stridor Cardiovascular Exam: Present: regular rate, normal rhythm, normal heart sounds. Absent: systolic murmur, diastolic murmur, rubs, gallop, clicks GI/Abdominal exam: Present: soft, tenderness (Minimal), normal bowel sounds. Absent: distended, guarding, rebound, rigid Back exam: Absent: CVA tenderness (R), CVA tenderness (L) Neurological exam: Present: alert, oriented X3, CN II-XII intact Skin exam: Present: warm, dry, intact, normal color. Absent: rash <Alex Serrano - Last Filed: 11/09/18 16:19> Course Vital Signs 11/09/18 11/09/18 15:24 19:23 Temperature 97.7 F Pulse Rate 50 L 73 Respiratory 16 16 Rate Blood Pressure 131/76 107/52 O2 Sat by Pulse 99 99 Oximetry Medical Decision Making - Lab Data Result diagrams: 11/09/18 16:23 11/09/18 15:49 <Hawa Deleon - Last Filed: 11/09/18 20:06> - Lab Data Result diagrams: 11/09/18 16:23 11/09/18 15:49 <Santosh Hines - Last Filed: 11/09/18 22:45> - Medical Decision Making I saw this patient in conjunction with the physician staff physical therapy assistant. I performed ind ependent history and physical exam. Agree with case management. I discussed with the patient possibility of admission for symptom management. Discussed risk of observation status and the patient states she would like to go home rather than risk not having full insurance coverage of the stay. Discussed appropriate follow-up and further care. Discussed return parameters. The patient is also provided collection kit and prescription to have Clostridium difficile testing. (Santosh Hines) - Lab Data Lab Results 11/09/18 11/09/18 11/09/18 Range/Units 15:49 16:23 16:39 WBC 6.4 (3.8-10.6) k/uL RBC 3.85 (3.80-5.40) m/uL Hgb 10.4 L (11.4-16.0) gm/dL Hct 33.6 L (34.0-46.0) % MCV 87.3 (80.0-100.0) fL MCH 27.0 (25.0-35.0) pg MCHC 31.0 (31.0-37.0) g/dL RDW 15.7 H (11.5-15.5) % Plt Count 330 (150-450) k/uL Neutrophils % 77 % Lymphocytes % 14 % Monocytes % 6 % Eosinophils % 2 % Basophils % 0 % Neutrophils # 4.9 (1.3-7.7) k/uL Lymphocytes # 0.9 L (1.0-4.8) k/uL Monocytes # 0.4 (0-1.0) k/uL Eosinophils # 0.1 (0-0.7) k/uL Basophils # 0.0 (0-0.2) k/uL Hypochromasia Slight Sodium 139 (137-145) mmol/L Potassium 3.7 (3.5-5.1) mmol/L Chloride 106 (98-107) mmol/L Carbon Dioxide 22 (22-30) mmol/L Anion Gap 11 mmol/L BUN 9 (7-17) mg/dL Creatinine 0.71 (0.52-1.04) mg/dL Est GFR (CKD-EPI)AfAm >90 (>60 ml/min/1.73 sqM) Est GFR (CKD-EPI)NonAf 83 (>60 ml/min/1.73 sqM) Glucose 102 H (74-99) mg/dL Calcium 9.1 (8.4-10.2) mg/dL Total Bilirubin 0.2 (0.2-1.3) mg/dL AST 23 (14-36) U/L ALT 9 (9-52) U/L Alkaline Phosphatase 71 (38-126) U/L Total Protein 6.8 (6.3-8.2) g/dL Albumin 3.9 (3.5-5.0) g/dL Amylase 43 (30-110) U/L Lipase 60 (23-300) U/L Urine Color Colorless Urine Appearance Clear (Clear) Urine pH 5.5 (5.0-8.0) Ur Specific Omro 1.006 (1.001-1.035) Urine Protein Negative (Negative) Urine Glucose (UA) Negative (Negative) Urine Ketones Negative (Negative) Urine Blood Negative (Negative) Urine Nitrite Negative (Negative) Urine Bilirubin Negative (Negative) Urine Urobilinogen <2.0 (<2.0) mg/dL Ur Leukocyte Esterase Small H (Negative) Urine RBC 1 (0-5) /hpf Urine WBC 12 H (0-5) /hpf Ur Squamous Epith Cells <1 (0-4) /hpf Urine Bacteria Many H (None) /hpf Hyaline Casts 6 H (0-2) /lpf Urine Mucus Rare H (None) /hpf Disposition <Dedoe,Alex M - Last Filed: 11/09/18 16:19> <Hawa Deleon - Last Filed: 11/09/18 20:06> Is patient prescribed a controlled substance at d/c from ED?: No <Santosh Hines - Last Filed: 11/09/18 22:45> Clinical Impression: Diarrhea Disposition: HOME SELF-CARE Condition: Fair Instructions (If sedation given, give patient instructions): Acute Diarrhea (ED) Referrals: Franklyn Marino DO [Primary Care Provider] - 1-2 days
[2018-11-09 16:29] LABS: Basophils % (A) 0 %; Eosinophils # (A) 0.1 k/uL (0-0.7); Eosinophils % (A) 2 %; HCT 33.6 % (34.0-46.0); HGB 10.4 gm/dL (11.4-16.0); Hypochromasia Slight; Lymphocytes # (A) 0.9 k/uL (1.0-4.8); Lymphocytes % (A) 14 %; MCV 87.3 fL (80.0-100.0); Mean Platelet Volume 6.5; Monocytes # (A) 0.4 k/uL (0-1.0); Monocytes % (A) 6 %; Neutrophils # (A) 4.9 k/uL (1.3-7.7); Neutrophils % (A) 77 %; Platelet Count 330 k/uL (150-450); RBC 3.85 m/uL (3.80-5.40); RDW 15.7 % (11.5-15.5); WBC 6.4 k/uL (3.8-10.6)
[2018-11-09 16:37] LABS: ALT 9 U/L (9-52); AST 23 U/L (14-36); African American GFR (CKD) >90 (>60 ml/min/1.73 sqM); Albumin 3.9 g/dL (3.5-5.0); Alkaline Phosphatase 71 U/L (38-126); Amylase 43 U/L (30-110); Anion Gap 11 mmol/L; Blood Urea Nitrogen 9 mg/dL (7-17); Calcium 9.1 mg/dL (8.4-10.2); Carbon Dioxide 22 mmol/L (22-30); Chloride 106 mmol/L (98-107); Glucose 102 mg/dL (74-99); Non-African American GFR(CKD) 83 (>60 ml/min/1.73 sqM); Potassium 3.7 mmol/L (3.5-5.1); Sodium 139 mmol/L (137-145); Total Bilirubin 0.2 mg/dL (0.2-1.3); Total Protein 6.8 g/dL (6.3-8.2)
[2018-11-09 17:08] LABS: Appearance,Urine Clear (Clear); Bacteria,Urine Many /hpf; Bilirubin,Urine Negative (Negative); Blood,Urine Negative (Negative); Color,Urine Colorless; Glucose,Urine (UA) Negative (Negative); Hyaline Casts,Urine 6 /lpf (0-2); Ketones,Urine Negative (Negative); Leukocyte Esterase,Urine Small (Negative); Mucus,Urine Rare /hpf; Nitrite,Urine Negative (Negative); PH, Urine 5.5 (5.0-8.0); Protein,Urine Negative (Negative); RBC,Urine 1 /hpf (0-5); Specific Gravity,Urine 1.006 (1.001-1.035); Squamous Epithelial Cell,Urine <1 /hpf (0-4); Urobilinogen,Urine <2.0 mg/dL (<2.0); WBC,Urine 12 /hpf (0-5)
[2018-11-09 22:44] VITALS: BP 122/64; PULSE 66
== END 2018-11-09 22:44 | disposition home or self-care (01) ==
LOC: EC 15:21
DX: R19.7 Diarrhea, unspecified (principal); R53.1 Weakness; R35.0 Frequency of micturition; R30.0 Dysuria; R25.2 Cramp and spasm; R42 Dizziness and giddiness; K21.9 Gastro-esophageal reflux disease without esophagitis; I10 Essential (primary) hypertension; M06.9 Rheumatoid arthritis, unspecified; E03.9 Hypothyroidism, unspecified; F32.9 Major depressive disorder, single episode, unspecified; F41.9 Anxiety disorder, unspecified; F17.200 Nicotine dependence, unspecified, uncomplicated; Z88.0 Allergy status to penicillin; Z88.1 Allergy status to other antibiotic agents; Z88.2 Allergy status to sulfonamides; Z88.7 Allergy status to serum and vaccine; Z91.048 Other nonmedicinal substance allergy status; Z79.890 Hormone replacement therapy; Z79.891 Long term (current) use of opiate analgesic; Z79.899 Other long term (current) drug therapy; Z86.2 Personal history of diseases of the blood and blood-forming organs and certain disorders involving the immune mechanism; Z90.49 Acquired absence of other specified parts of digestive tract; Z98.890 Other specified postprocedural states; Z86.19 Personal history of other infectious and parasitic diseases; Z96.653 Presence of artificial knee joint, bilateral; Z96.643 Presence of artificial hip joint, bilateral
CPT/HCPCS: 36415; 80053; 81001; 82150; 83690; 85025; 96360; 99284

== ENCOUNTER → 2018-12-16 | Outpatient (CLI) | payer MEDICARE ==
--- NOTE | 2018-12-17 11:48 | CT ---
EXAMINATION TYPE: CT abdomen pelvis w con DATE OF EXAM: 12/16/2018 COMPARISON: 10/28/2017 INDICATION: Diarrhea, abnormal weight loss, 20 lbs over 8-10 weeks DLP: 1245.60 mGycm, Automated exposure control for dose reduction was used. CONTRAST: 100 mL of Isovue 300. Study performed with Oral Contrast TECHNIQUE: Axial images were obtained from above the diaphragm to the pubic rami in the axial plane a t 5 mm thick sections. Reconstructed images are reviewed on the computer in the coronal plane. FINDINGS: Limited CT sections are obtained the lung bases. The lung bases are clear. Large hiatal hernia is p resent. This appears stable. Note is made of coronary artery calcification. CT ABDOMEN: Liver: Normal Spleen: Normal Pancreas: Atrophic Adrenal glands: The adrenal glands are normal. Gallbladder: Surgically absent Kidneys: No masses are evident. No hydronephrosis is present. No cysts are present. Delayed images were obtained through the kidneys, which remain unremarkable. Aorta: Vascular calcification is within the aorta. Inferior vena cava: Normal. CT PELVIS: Loops of bowel within the abdomen and pelvis are normal. There are loops of bowel which are incom pletely distended or lack oral contrast limiting their evaluation. Appendix: Not visualized Urinary bladder: Scattered by beam hardening artifact from bilateral hip prostheses. Genitourinary structures: Uterus is not identified. Adnexal regions are clear. No free fluid is withi n the pelvis. Osseous structures: Bilateral hip prostheses are present. Extensive surgical changes are within the l umbar spine. No suspicious lytic or sclerotic lesions are identified. IMPRESSIONS: 1. 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 2. No suspicious intra-abdominal or pelvic changes
== END | disposition home or self-care (01) ==
LOC: RADCTMAIN 15:50
PROVIDERS: ATTEND Family Medicine
DX: R19.7 Diarrhea, unspecified (principal); R63.4 Abnormal weight loss
CPT/HCPCS: 82565; 84520; 74177; 36415; Q9967

== ENCOUNTER 2019-06-29 05:21 | Inpatient (IN) | payer MEDICARE ==
[2019-06-29] MEDS ORDERED: SODIUM CHLORIDE 0.9% 500 ML 500 ML IV STA (05:24)
[2019-06-29] MEDS ORDERED: ACETAMINOPHEN TAB 500 MG TAB PO STA (05:33)
--- NOTE | 2019-06-29 05:53 | ED ---
General Adult HPI - General Chief complaint: Shortness of Breath Stated complaint: Fever/SOB Time Seen by Provider: 06/29/19 05:24 Source: patient, EMS Mode of arrival: EMS - History of Present Illness Initial comments: Dictation was produced using Fio dictation software. please excuse any grammatical, word or spelling errors. Chief Complaint: 78-year-old female with past medical history of rheumatoid arthritis, thyroid disease and multiple orthopedic surgeries presents with cough and fever. 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 3 days ago she began feeling ill. Patient states she's been fever chills and cough. Patient states her cough is productive of sputum. She states that whenever she takes deep breath she feels a specific heaviness to her entire chest. She denies that her symptoms are painful. Denies any lower shoulder symptoms. She does not take any blood thinners. No history of blood clots. She denies any history of COPD or asthma. No recent travel. She lives at home. She does however have multiple visitors at her house on a regular basis. She denies any one that comes to her house has shown any signs of illness. The ROS documented in this emergency department record has been reviewed and confirmed by me. Those systems with pertinent positive or negative responses have been documented in the HPI. All other systems are other negative and/or noncontributory. PHYSICAL EXAM: General Impression: Alert and oriented x3, not in acute distress HEENT: Normocephalic atraumatic, extra-ocular movements intact, pupils equal and reactive to light bilaterally, dry mucous members, mild erythema to the posterior pharynx. Cardiovascular: Heart regular rate and rhythm, S1&S2 audible, no murmurs, rubs or gallops Chest: Mild audible wheezing Abdomen: Bowel sounds present, abdomen soft, non-tender, non-distended, no organomegaly Musculoskeletal: Pulses present and equal in all extremities, no peripheral edema Motor: no focal deficits noted Neurological: CN II-XII grossly intact, no focal motor or sensory deficits noted Skin: Intact with no visualized rashes Psych: Normal affect and mood ED course: 78-year-old female clinical presentation of URI type symptoms. Patient is a temperature of 101.7, 91% on room air, rest of vital signs within acceptable limits. Patient coughing at bedside. Laboratory evaluation obtained. CBC shows no clue leukocytosis. Hemoglobin stable at 11.0. Coag panel unremarkable. Metabolic panel shows sodium of 132. Potassium 3.2, magnesium 1.5. Influenza A test is positive. Negative for group A strep. Chest x-ray is unremarkable. Patient reevaluated bedside so showing some signs of labored breathing. Furthermore, concerning patient's age and comorbidities is concerned that patient may develop worsening respiratory failure. Patient treated with breathing treatments per she is given 1 dose of Decadron. She'll be admitted. Discussed patient case with Dr. Mullins who is willing to accept patient's care. EKG interpretation: Ventricular rate 60, normal sinus rhythm,. Interval to 8, QRS 92, QTc 514. No TN prolongation, no QTC prolongation, no ST or T-wave changes noted. EKG compared to 09/07/2018 showing no changes. Overall, this EKG is unremarkable - Related Data Home Medications Medication Instructions Recorded Confirmed Citalopram Hydrobromide [CeleXA] 40 mg PO DAILY 05/12/18 11/09/18 Furosemide [Lasix] 40 mg PO DAILY 05/12/18 11/09/18 ALPRAZolam [Xanax] 2 mg PO Q8H PRN 06/06/18 11/09/18 Atenolol 100 mg PO HS 06/06/18 11/09/18 Levothyroxine Sodium [Synthroid] 50 mcg PO DAILY 06/06/18 11/09/18 Potassium Chloride ER [K-Dur 20] 20 meq PO BID 09/06/18 11/09/18 Famotidine [Pepcid] 40 mg PO BID 11/09/18 11/09/18 Zolpidem [Ambien] 10 mg PO HS 11/09/18 11/09/18 oxyCODONE-APAP 5-325MG [Percocet 1 tab PO TID 11/09/18 11/09/18 5-325 mg] traZODone HCL [Desyrel] 200 mg PO HS 11/09/18 11/09/18 Previous Rx's Medication Instructions Recorded busPIRone HCl [Buspar] 10 mg PO BID #60 tab 03/28/18 Allergies Allergy/AdvReac Type Severity Reaction Status Date / Time adhesive tape Allergy Rash/Hives Verified 06/29/19 05:30 Influenza Virus Vaccines Allergy "MAKES HER Verified 06/29/19 05:30 FEEL SICK" Sulfa (Sulfonamide Allergy Rash/Hives Verified 06/29/19 05:30 Antibiotics) amoxicillin trihydrate AdvReac Diarrhea Verified 06/29/19 05:30 [From Augmentin] ciprofloxacin [From Cipro] AdvReac Unknown Verified 06/29/19 05:30 metronidazole [From Flagyl] AdvReac Unknown Verified 06/29/19 05:30 potassium clavulanate AdvReac Diarrhea Verified 06/29/19 05:30 [From Augmentin] quinidine AdvReac BLOOD CLOTS Verified 06/29/19 05:30 Review of Systems ROS Statement: Those systems with pertinent positive or pertinent negative responses have been documented in the HPI. ROS Other: All systems not noted in ROS Statement are negative. Past Medical History Past Medical History: Atrial Fibrillation, Atrial Flutter, GERD/Reflux, Hyperlipidemia, Hypertension, Mitral Valve Prolapse (MVP), Rheumatoid Arthritis (RA), Thyroid Disorder Additional Past Medical History / Comment(s): OTHER HX: 03/06/14, 03/30/14, 07/03/14, 07/29/14 with CDIFF colitis, HYPOTHYROID, MVP, urinary incontinence, PRO LAPSED MITRAL VALVE- NO PROBLEMS FOR 30 YRS.anemia -requiring blood transfusion History of Any Multi-Drug Resistant Organisms: C-DIFF Date of last positivie culture/infection: 2015 MDRO Source:: Stool Past Surgical History: Adenoidectomy, Cholecystectomy, Hysterectomy, Joint Replacement, Orthopedic Surgery, Tonsillectomy Additional Past Surgical History / Comment(s): 02/18/16 total R hip arthroplasty. Other surgical HX: BILATERAL KNEE REPLACEMENT (2003-RIGHT & 2005 - LEFT); LOWER LUMBAR LAMINECTOMYL4-L5 (2007); LEFT HIP REPLACEMENT (2012); RIGHT SHOULDER REPLACEMENT (2008), left total knee arthroplasty revision. Bilateral cataracts with lens implants. FECAL TRASPLANT TX FOR C-DIFF three times.cataracts-lens implants Past Anesthesia/Blood Transfusion Reactions: No Reported Reaction Additional Past Anesthesia/Blood Transfusion Reaction / Comment(s): blood transfusion in past no reactions Past Psychological History: Anxiety, Depression Smoking Status: Current every day smoker Past Alcohol Use History: None Reported Past Drug Use History: None Reported - Past Family History Mother Family Medical History: Cancer Additional Family Medical History / Comment(s): Mother at age 60 with history of emphysema and lung cancer. Father Family Medical History: CVA/TIA Additional Family Medical History / Comment(s): Father at age 74 with problems with his larynx. Sister(s) Family Medical History: Unable to Obtain Daughter(s) Family Medical History: COPD, Myocardial Infarction ([place]) Additional Family Medical History / Comment(s): Mother at age 60 yrs of emphysema/lung CA Son(s) Family Medical History: Myocardial Infarction ([place]) Additional Family Medical History / Comment(s): Father at age 74yrs with "CVA of his larynx" Course Vital Signs 06/29/19 06/29/19 06/29/19 05:24 05:41 06:36 Temperature 101.7 F H 100.1 F H Pulse Rate 63 61 Respiratory 22 18 Rate Blood Pressure 133/58 126/68 O2 Sat by Pulse 91 L 95 96 Oximetry Medical Decision Making - Lab Data Result diagrams: 06/29/19 06:00 06/29/19 06:00 Lab Results 06/29/19 06/29/19 06/29/19 Range/Units 05:45 05:45 06:00 WBC 6.2 (3.8-10.6) k/uL RBC 3.84 (3.80-5.40) m/uL Hgb 11.0 L (11.4-16.0) gm/dL Hct 34.5 (34.0-46.0) % MCV 89.9 D (80.0-100.0) fL MCH 28.6 (25.0-35.0) pg MCHC 31.8 (31.0-37.0) g/dL RDW 13.7 (11.5-15.5) % Plt Count 204 (150-450) k/uL Neutrophils % 83 % Lymphocytes % 7 % Monocytes % 8 % Eosinophils % 1 % Basophils % 0 % Neutrophils # 5.1 (1.3-7.7) k/uL Lymphocytes # 0.4 L (1.0-4.8) k/uL Monocytes # 0.5 (0-1.0) k/uL Eosinophils # 0.0 (0-0.7) k/uL Basophils # 0.0 (0-0.2) k/uL PT (9.0-12.0) sec INR (<1.2) APTT (22.0-30.0) sec Sodium (137-145) mmol/L Potassium (3.5-5.1) mmol/L Chloride (98-107) mmol/L Carbon Dioxide (22-30) mmol/L Anion Gap mmol/L BUN (7-17) mg/dL Creatinine (0.52-1.04) mg/dL Est GFR (CKD-EPI)AfAm (>60 ml/min/1.73 sqM) Est GFR (CKD-EPI)NonAf (>60 ml/min/1.73 sqM) Glucose (74-99) mg/dL Plasma Lactic Acid Gianluca (0.7-2.0) mmol/L Calcium (8.4-10.2) mg/dL Magnesium (1.6-2.3) mg/dL Total Bilirubin (0.2-1.3) mg/dL AST (14-36) U/L ALT (4-34) U/L Alkaline Phosphatase (38-126) U/L C-Reactive Protein (<10.0) mg/L Total Protein (6.3-8.2) g/dL Albumin (3.5-5.0) g/dL Influenza Type A RNA Detected H (Not Detectd) Influenza Type B (PCR) Not Detected (Not Detectd) Group A Strep Rapid Negative (Negative) 06/29/19 06/29/19 06/29/19 Range/Units 06:00 06:00 06:00 WBC (3.8-10.6) k/uL RBC (3.80-5.40) m/uL Hgb (11.4-16.0) gm/dL Hct (34.0-46.0) % MCV (80.0-100.0) fL MCH (25.0-35.0) pg MCHC (31.0-37.0) g/dL RDW (11.5-15.5) % Plt Count (150-450) k/uL Neutrophils % % Lymphocytes % % Monocytes % % Eosinophils % % Basophils % % Neutrophils # (1.3-7.7) k/uL Lymphocytes # (1.0-4.8) k/uL Monocytes # (0-1.0) k/uL Eosinophils # (0-0.7) k/uL Basophils # (0-0.2) k/uL PT 10.8 (9.0-12.0) sec INR 1.1 (<1.2) APTT 24.9 (22.0-30.0) sec Sodium 132 L (137-145) mmol/L Potassium 3.2 L (3.5-5.1) mmol/L Chloride 99 (98-107) mmol/L Carbon Dioxide 24 (22-30) mmol/L Anion Gap 9 mmol/L BUN 8 (7-17) mg/dL Creatinine 0.63 (0.52-1.04) mg/dL Est GFR (CKD-EPI)AfAm >90 (>60 ml/min/1.73 sqM) Est GFR (CKD-EPI)NonAf 87 (>60 ml/min/1.73 sqM) Glucose 139 H (74-99) mg/dL Plasma Lactic Acid Gianluca 1.1 (0.7-2.0) mmol/L Calcium 8.6 (8.4-10.2) mg/dL Magnesium 1.5 L (1.6-2.3) mg/dL Total Bilirubin 0.2 (0.2-1.3) mg/dL AST 24 (14-36) U/L ALT 9 (4-34) U/L Alkaline Phosphatase 92 (38-126) U/L C-Reactive Protein 35.6 H (<10.0) mg/L Total Protein 6.5 (6.3-8.2) g/dL Albumin 3.8 (3.5-5.0) g/dL Influenza Type A RNA (Not Detectd) Influenza Type B (PCR) (Not Detectd) Group A Strep Rapid (Negative) Disposition Clinical Impression: Influenza, Respiratory failure Disposition: ADMITTED IP TO THIS HOSP Condition: Fair Referrals: Franklyn Marino DO [Primary Care Provider] - 1-2 days Decision Time: 06:45
[2019-06-29] MEDS ORDERED: OSELTAMIVIR 75 MG CAP PO STA (06:17)
[2019-06-29] MEDS ORDERED: ALBUTEROL NEBULIZED 2.5 MG/3 ML INHALATION STA (06:18)
[2019-06-29] MEDS ORDERED: DEXAMETHASONE SOD PHOSPHATE 10 MG/ML 1 ML VIAL IV STA (06:19)
[2019-06-29 06:20] LABS: Basophils % (A) 0 %; Eosinophils % (A) 1 %; HCT 34.5 % (34.0-46.0); Lymphocytes # (A) 0.4 k/uL (1.0-4.8); Lymphocytes % (A) 7 %; MCH 28.6 pg (25.0-35.0); MCHC 31.8 g/dL (31.0-37.0); Mean Platelet Volume 7.7; Monocytes # (A) 0.5 k/uL (0-1.0); Monocytes % (A) 8 %; Neutrophils # (A) 5.1 k/uL (1.3-7.7); Neutrophils % (A) 83 %; Platelet Count 204 k/uL (150-450); RBC 3.84 m/uL (3.80-5.40); RDW 13.7 % (11.5-15.5); WBC 6.2 k/uL (3.8-10.6)
--- NOTE | 2019-06-29 06:25 | XR ---
EXAMINATION TYPE: XR chest 1V portable DATE OF EXAM: 06/29/2019 COMPARISON: Chest x-ray September 11, 2018. HISTORY: Shortness of breath, cough, and fever. TECHNIQUE: Single frontal view of the chest is obtained. FINDINGS: There is chronic parenchymal changes bilaterally without suspicious new focal air space op acity, pleural effusion, or pneumothorax seen. The cardiac silhouette size remains enlarged. The o sseous structures remain demineralized. Underlying levoconvex scoliosis centered near the thoracolumb ar junction is present. IMPRESSION: Chronic changes and cardiomegaly without suspicious acute pulmonary process currently.
[2019-06-29 06:26] LABS: ALT 9 U/L (4-34); AST 24 U/L (14-36); African American GFR (CKD) >90 (>60 ml/min/1.73 sqM); Albumin 3.8 g/dL (3.5-5.0); Alkaline Phosphatase 92 U/L (38-126); Anion Gap 9 mmol/L; Blood Urea Nitrogen 8 mg/dL (7-17); C Reactive Protein 35.6 mg/L (<10.0); Calcium 8.6 mg/dL (8.4-10.2); Carbon Dioxide 24 mmol/L (22-30); Chloride 99 mmol/L (98-107); Glucose 139 mg/dL (74-99); MCV 89.9 fL (80.0-100.0); Magnesium 1.5 mg/dL (1.6-2.3); Non-African American GFR(CKD) 87 (>60 ml/min/1.73 sqM); Potassium 3.2 mmol/L (3.5-5.1); Sodium 132 mmol/L (137-145); Total Bilirubin 0.2 mg/dL (0.2-1.3); Total Protein 6.5 g/dL (6.3-8.2)
[2019-06-29 06:32] LABS: INR 1.1 (<1.2); Partial Thromboplastin Time 24.9 sec (22.0-30.0); Prothrombin Time 10.8 sec (9.0-12.0)
[2019-06-29] MEDS ORDERED: POTASSIUM CHLORIDE ER 20 MEQ TAB.ER PO STA (06:39)
[2019-06-29] MEDS ORDERED: MAGNESIUM OXIDE 400 MG TAB PO STA (06:39)
[2019-06-29] MEDS ORDERED: DICYCLOMINE 10 MG CAP PO PRN (08:26)
[2019-06-29] MEDS ORDERED: ALPRAZolam 1 MG TAB PO PRN (08:26)
[2019-06-29] MEDS: CITALOPRAM HYDROBROMIDE 20 MG TAB PO SCH (10:36)
[2019-06-29] MEDS: LEVOTHYROXINE 50 MCG TAB PO SCH (10:36)
[2019-06-29] MEDS: OXYBUTYNIN CHLORIDE 5 MG TAB PO SCH (10:36)
[2019-06-29] MEDS: FERROUS SULFATE 325 MG TAB PO SCH (10:36)
[2019-06-29 12:29] LABS: Glucose,Whole Blood 215 mg/dL (75-99)
[2019-06-29] MEDS: methylPREDNISolone SOD SUCCI 125 MG/2 ML VIAL IV SCH ×2 (12:52→17:33)
[2019-06-29] MEDS: INSULIN ASPART (NovoLOG) 100 UNIT/ML VIAL SQ SCH ×3 (12:52→21:29)
--- NOTE | 2019-06-29 15:00 | P.HPIM ---
History of Present Illness H&P Date: 06/29/19 This is a 78-year-old female patient of Dr. Marino with past medical history of hypertension, hypertensive cardiovascular disease, mitral valve prolapse, supraventricular tachycardia, rheumatoid arthritis, GERD, COPD, and recurrent C. diff colitis. 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 diff at [facility]. The patient has had multiple hospitalizations regarding anemia with hemoglobin as low as 4.8 and followed by GI and oncology with plan for transfusions/iron infusions as an outpatient. Her most recent hospitalization was in August 2018 which time she was treated for acute anemia secondary to acute blood loss and chronic disease and possible GI bleed and she was transfused for a total of 3 units of packed RBCs. She underwent EGD at that time that showed multiple Silviano erosions without bleeding. She has not had any recent recurrence of C. difficile colitis. Patient complains of feeling ill for the past 3 days with fever, chills and cough with productive sputum. She has some heaviness in her chest when she takes a deep breath. No history of COPD or asthma. Patient presented to [facility] emergency center for evaluation. Temperature 101.7, heart rate 63, respiratory rate 22, blood pressure 133/58, pulse ox 91% on room air. WBC 6.2, hemoglobin 11, platelet count 204. Sodium 132, potassium 3.2, chloride 99, CO2 24, BUN 8 and creatinine 0.63, blood sugar 139. Influenza A positive. Group A strep rapid negative. Chest x-ray shows chronic changes and cardiomegaly without suspicious acute pulmonary process. Patient admitted to the [facility] floor. Review of Systems Constitutional: Reports chills, Reports fatigue, Reports fever, Reports lethargy, Reports malaise, Reports poor appetite, Reports weakness, Denies weight loss Eyes: denies blurred vision, denies pain Ears, nose, mouth and throat: Denies dysphagia, Denies headache, Denies nasal congestion, Denies nasal discharge, Denies sore throat, Denies vertigo Cardiovascular: Reports dyspnea on exertion, Reports shortness of breath, Denies chest pain, Denies decreased exercise tolerance, Denies edema, Denies leg edema, Denies lightheadedness, Denies syncope Respiratory: Reports cough, Reports cough with sputum, Reports dyspnea, Reports respiratory infections, Reports wheezing, Denies excessive sputum, Denies hemoptysis, Denies home oxygen, Denies sleep apnea Gastrointestinal: Reports loss of appetite, Denies abdominal pain, Denies diarrhea, Denies nausea, Denies vomiting Genitourinary: Denies dysuria, Denies hematuria, Denies urgency, Denies urinary frequency Menstruation: Reports postmenopausal Musculoskeletal: Reports muscle cramps, Denies frequent falls, Denies gait dysfunction, Denies muscle weakness, Denies myalgias Integumentary: Denies pruritus, Denies rash, Denies wounds Neurological: Denies change in mentation, Denies change in speech, Denies num bness, Denies weakness Psychiatric: Denies anxiety, Denies depression Endocrine: Denies fatigue, Denies weight change Past Medical History Past Medical History: Atrial Fibrillation, Atrial Flutter, GERD/Reflux, Hyperlipidemia, Hypertension, Mitral Valve Prolapse (MVP), Rheumatoid Arthritis (RA), Thyroid Disorder Additional Past Medical History / Comment(s): OTHER HX: 03/06/14, 03/30/14, 07/03/14, 07/29/14 with CDIFF colitis, HYPOTHYROID, MVP, urinary incontinence, PROLAPSED MITRAL VALVE- NO PROBLEMS FOR 30 YRS.anemia -requiring blood transfusion History of Any Multi-Drug Resistant Organisms: C-DIFF Date of last positivie culture/infection: 2015 MDRO Source:: Stool Past Surgical History: Adenoidectomy, Cholecystectomy, Hysterectomy, Joint Replacement, Orthopedic Surgery, Tonsillectomy Additional Past Surgical History / Comment(s): 02/18/16 total R hip arthroplasty. Other surgical HX: BILATERAL KNEE REPLACEMENT (2003-RIGHT & 2005 - LEFT); LOWER LUMBAR LAMINECTOMYL4-L5 (2007); LEFT HIP REPLACEMENT (2012); RIGHT SHOULDER REPLACEMENT (2008), left total knee arthroplasty revision. Bilateral cataracts with lens implants. FECAL TRASPLANT TX FOR C-DIFF three times.cataracts-lens implants Past Anesthesia/Blood Transfusion Reactions: No Reported Reaction Additional Past Anesthesia/Blood Transfusion Reaction / Comment(s): blood transfusion in past no reactions Past Psychological History: Anxiety, Depression Smoking Status: Current every day smoker Past Alcohol Use History: None Reported Additional Past Alcohol Use History / Comment(s): Patient has smoked since 1954- 5 cig per day and stated she has no intention of quitting No alcohol use or abuse. No street drug use no marijuana use. Past Drug Use History: None Reported - Past Family History Mother Family Medical History: Cancer Additional Family Medical History / Comment(s): Mother at age 60 with history of emphysema and lung cancer. Father Family Medical History: CVA/TIA Additional Family Medical History / Comment(s): Father at age 74 with problems with his larynx. Sister(s) Family Medical History: Unable to Obtain Daughter(s) Family Medical History: COPD, Myocardial Infarction ([place]) Additional Family Medical History / Comment(s): Mother at age 60 yrs of emphysema/lung CA Son(s) Family Medical History: Myocardial Infarction ([place]) Additional Family Medical History / Comment(s): Father at age 74yrs with "CVA of his larynx" Medications and Allergies Home Medications Medication Instructions Recorded Confirmed Type Citalopram Hydrobromide [CeleXA] 40 mg PO DAILY 05/12/18 06/29/19 History Furosemide [Lasix] 40 mg PO DAILY 05/12/18 06/29/19 History ALPRAZolam [Xanax] 2 mg PO Q8H PRN 06/06/18 06/29/19 History Atenolol 100 mg PO HS 06/06/18 06/29/19 History Levothyroxine Sodium [Synthroid] 50 mcg PO DAILY 06/06/18 06/29/19 History traZODone HCL [Desyrel] 200 mg PO HS 11/09/18 06/29/19 History Dicyclomine [Bentyl] 10 mg PO TID PRN 06/29/19 06/29/19 History Ferrous Sulfate [Feosol] 325 mg PO DAILY 06/29/19 06/29/19 History Oxybutynin Chloride [Ditropan] 5 mg PO DAILY 06/29/19 06/29/19 History Potassium Gluconate 99 mg PO DAILY 06/29/19 06/29/19 History oxyCODONE-APAP 10-325MG [Percocet 1 tab PO Q8HR 06/29/19 06/29/19 History 10-325 mg] Allergies Allergy/AdvReac Type Severity Reaction Status Date / Time adhesive tape Allergy Rash/Hives Verified 06/29/19 07:22 Influenza Virus Vaccines Allergy "MAKES HER Verified 06/29/19 07:22 FEEL SICK" Sulfa (Sulfonamide Allergy Rash/Hives Verified 06/29/19 07:22 Antibiotics) amoxicillin trihydrate AdvReac Diarrhea Verified 06/29/19 07:22 [From Augmentin] ciprofloxacin [From Cipro] AdvReac Unknown Verified 06/29/19 07:22 metronidazole [From Flagyl] AdvReac Unknown Verified 06/29/19 07:22 potassium clavulanate AdvReac Diarrhea Verified 06/29/19 07:22 [From Augmentin] quinidine AdvReac BLOOD CLOTS Verified 06/29/19 07:22 Physical Exam Vitals: Vital Signs Temp Pulse Resp BP Pulse Ox 06/29/19 07:06 68 06/29/19 06:58 63 06/29/19 06:36 100.1 F H 61 18 126/68 96 06/29/19 05:41 95 06/29/19 05:24 101.7 F H 63 22 133/58 91 L Intake and Output 06/28/19 06/29/19 06/29/19 22:59 06:59 14:59 Other: Weight 81.647 kg General appearance: average body habitus, mild acute distress secondary to cough - EENT Eyes: anicteric sclerae, EOMI, PERRLA, no ptosis, no scleral icterus, normal appearance ENT: hearing grossly normal, NA/AT, normal oropharynx, no thrush Ears: bilateral: bulging - Neck Neck: no lymphadenopathy, normal ROM, no rigidity, no stridor, no thyromegaly Carotids: bilateral: upstroke normal Thyroid: bilateral: normal size - Respiratory Respiratory: bilateral: diminished, diffuse wheezing negative: dullness, rales, rhonchi, wheezing, prolonged expiration, prolonged inspiration - Cardiovascular Rhythm: regular Heart sounds: normal: S1, S2 Abnormal Heart Sounds: systolic murmur, no S3 Gallop - Gastrointestinal General gastrointestinal: normal bowel sounds, soft, no splenomegaly, no tenderness, no umbilical hernia - Integumentary Integumentary: normal, normal turgor - Neurologic Neurologic: CNII-XII intact - Musculoskeletal Musculoskeletal: generalized weakness, strength equal bilaterally - Psychiatric Psychiatric: A&O x's 3, appropriate affect, intact judgment & insight Results CBC & Chem 7: 06/29/19 06:00 06/29/19 06:00 Labs: Abnormal Lab Results - Last 24 Hours (Table) 06/29/19 06/29/19 06/29/19 Range/Units 05:45 06:00 06:00 Hgb 11.0 L (11.4-16.0) gm/dL Lymphocytes # 0.4 L (1.0-4.8) k/uL Sodium 132 L (137-145) mmol/L Potassium 3.2 L (3.5-5.1) mmol/L Glucose 139 H (74-99) mg/dL Magnesium 1.5 L (1.6-2.3) mg/dL C-Reactive Protein 35.6 H (<10.0) mg/L Influenza Type A RNA Detected H (Not Detectd) Thrombosis Risk Factor Assmnt - DVT/VTE Prophylaxis DVT/VTE Prophylaxis: Pharmacologic Prophylaxis ordered Assessment and Plan Plan: 1. Sepsis secondary to Influenza A. Patient will be continued on Tamiflu 75 mg every 12 hours to complete 10 doses, continue DuoNeb treatments every 4 hours as needed, start Solu-Medrol 60 mg IV every 6 hours. 2. Anemia of chronic disease. No signs of bleeding. 3. History of C.Difficile colitis status post fecal transplant at [facility]. Monitor closely. Avoid antibiotics. 4. History of SVT. Stable. Continue atenolol 100 mg at bedtime. 5. Hypertension and hypertensive cardiovascular disease. Continue atenolol. 6. GERD. Continue Protonix 40 mg daily. 7. Rheumatoid arthritis. Stable. 8. Hypothyroidism. Continue levothyroxine 50 MCG daily 9. Generalized anxiety disorder. Continue Xanax 2 mg every 8 hours as needed 10. Recurrent depression. Continue Celexa 40 mg daily. 11. DVT prophylaxis. Heparin subcu. 12. GI prophylaxis. Protonix 40 mg daily. 13. Chronic back pain. Percocet 10 one every 8 hours as needed. Patient will be admitted to the hospital for a minimum of 2 night stay. Discharge plan: Most likely return home Impression and plan of care have been directed as dictated by the signing physician. Domenica Reed nurse practitioner acting as scribe for signing physician.
[2019-06-29 17:15] LABS: Glucose,Whole Blood 157 mg/dL (75-99)
[2019-06-29] MEDS: oxyCODONE-APAP 10-325MG 1 EACH TAB PO SCH (17:33)
[2019-06-29 20:58] LABS: Glucose,Whole Blood 132 mg/dL (75-99)
[2019-06-29] MEDS: traZODone HCL 100 MG TAB PO SCH (21:29)
[2019-06-29] MEDS: OSELTAMIVIR 75 MG CAP PO SCH (21:29)
[2019-06-29] MEDS: ATENOLOL 50 MG TAB PO SCH (21:29)
[2019-06-30] MEDS: methylPREDNISolone SOD SUCCI 125 MG/2 ML VIAL IV SCH ×2 (00:21→06:07)
[2019-06-30] MEDS: oxyCODONE-APAP 10-325MG 1 EACH TAB PO SCH ×4 (00:22→23:15)
[2019-06-30] MEDS: LEVOTHYROXINE 50 MCG TAB PO SCH (06:07)
[2019-06-30 07:15] LABS: Glucose,Whole Blood 159 mg/dL (75-99)
[2019-06-30] MEDS: CITALOPRAM HYDROBROMIDE 20 MG TAB PO SCH (08:13)
[2019-06-30] MEDS: OSELTAMIVIR 75 MG CAP PO SCH ×2 (08:13→20:03)
[2019-06-30] MEDS: INSULIN ASPART (NovoLOG) 100 UNIT/ML VIAL SQ SCH ×4 (08:13→20:11)
[2019-06-30] MEDS: OXYBUTYNIN CHLORIDE 5 MG TAB PO SCH (08:13)
[2019-06-30] MEDS: PANTOPRAZOLE 40 MG TABLET PO SCH (08:13)
[2019-06-30] MEDS: FERROUS SULFATE 325 MG TAB PO SCH (08:13)
[2019-06-30] MEDS ORDERED: ZOLPIDEM 5 MG TAB PO PRN (10:06)
[2019-06-30 11:03] VITALS: BMI 29.0
[2019-06-30] MEDS: IPRATROPIUM-ALBUTEROL 3 ML NEB INHALATION PRN ×3 (11:13→19:28)
[2019-06-30 11:43] LABS: Glucose,Whole Blood 175 mg/dL (75-99)
--- NOTE | 2019-06-30 13:17 | P.PN ---
Subjective Progress Note Date: 06/30/19 This is a 78-year-old female patient of Dr. Marino with past medical history of hypertension, hypertensive cardiovascular disease, mitral valve prolapse, supraventricular tachycardia, rheumatoid arthritis, GERD, COPD, and recurrent C. diff colitis. 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 diff at [facility]. The patient has had multiple hospitalizations regarding anemia with hemoglobin as low as 4.8 and followed by GI and oncology with plan for transfusions/iron infusions as an outpatient. Her most recent hospitalization was in August 2018 which time she was treated for acute anemia secondary to acute blood loss and chronic disease and possible GI bleed and she was transfused for a total of 3 units of packed RBCs. She underwent EGD at that time that showed multiple Silviano erosions without bleeding. She has not had any recent recurrence of C. difficile colitis. Patient complains of feeling ill for the past 3 days with fever, chills and cough with productive sputum. She has some heaviness in her chest when she takes a deep breath. No history of COPD or asthma. Patient presented to [facility] emergency center for evaluation. Temperature 101.7, heart rate 63, respiratory rate 22, blood pressure 133/58, pulse ox 91% on room air. WBC 6.2, hemoglobin 11, platelet count 204. Sodium 132, potassium 3.2, chloride 99, CO2 24, BUN 8 and creatinine 0.63, blood sugar 139. Influenza A positive. Group A strep rapid negative. Chest x-ray shows chronic changes and cardiomegaly without suspicious acute pulmonary process. [facility] 06[facility]29: Patient states that her breathing is okay today but she is feeling ex tremely weak. She complains of her stomach growling loudly, no nausea or vomiting. No abdominal pain. She states she did not sleep last night. She is requesting Ambien in addition to Xanax. She states she normally takes Ambien at home. Patient has been afebrile, heart rate 62, blood pressure 105/61, pulse ox 97% on 2 L nasal cannula. Capillary blood glucose running between 159 and 175. Solu-Medrol will be decreased to 40 mg every 8 hours. Patient states that she will not be able to leave the hospital until Wednesday she does not have anyone available at home. Objective - Vital Signs Vital signs: Vital Signs Temp 97.7 F 06/30/19 04:05 Pulse 52 L 06/30/19 04:05 Resp 16 06/30/19 04:05 BP 142/77 06/30/19 04:05 Pulse Ox 97 06/30/19 04:05 Intake & Output 06/29/19 06/30/19 06/30/19 18:59 06:59 18:59 Weight 81.647 kg Other: Voiding Method Toilet # Voids 2 2 - Exam Review of Systems Constitutional: Denies chills, Reports fatigue, denies fever, Reports lethargy, Reports malaise, Reports poor appetite, Reports weakness, Denies weight loss Eyes: denies blurred vision, denies pain Ears, nose, mouth and throat: Denies dysphagia, Denies headache, Denies nasal congestion, Denies nasal discharge, Denies sore throat, Denies vertigo Cardiovascular: Reports dyspnea on exertion, Reports shortness of breath, Denies chest pain, Denies decreased exercise tolerance, Denies edema, Denies leg edema, Denies lightheadedness, Denies syncope Respiratory: Reports cough, Reports cough with sputum, Reports dyspnea, Reports respiratory infections, Reports wheezing, Denies excessive sputum, Denies hemoptysis, Denies home oxygen, Denies sleep apnea Gastrointestinal: Reports loss of appetite, Denies abdominal pain, Denies diarrhea, Denies nausea, Denies vomiting Genitourinary: Denies dysuria, Denies hematuria, Denies urgency, Denies urinary frequency Menstruation: Reports postmenopausal Musculoskeletal: Reports muscle cramps, Denies frequent falls, Denies gait dysfunction, Denies muscle weakness, Denies myalgias Integumentary: Denies pruritus, Denies rash, Denies wounds Neurological: Denies change in mentation, Denies change in speech, Denies numbness, Denies weakness Psychiatric: Denies anxiety, Denies depression Endocrine: Denies fatigue, Denies weight change Physical examination General appearance: average body habitus, no acute distress - EENT Eyes: anicteric sclerae, EOMI, PERRLA, no ptosis, no scleral icterus, normal appearance ENT: hearing grossly normal, NA/AT, normal oropharynx, no thrush Ears: bilateral: bulging - Neck Neck: no lymphadenopathy, normal ROM, no rigidity, no stridor, no thyromegaly Carotids: bilateral: upstroke normal Thyroid: bilateral: normal size - Respiratory Respiratory: bilateral: diminished, diffuse wheezing negative: dullness, rales, rhonchi, wheezing, prolonged expiration, prolonged inspiration - Cardiovascular Rhythm: regular Heart sounds: normal: S1, S2 Abnormal Heart Sounds: systolic murmur, no S3 Gallop - Gastrointestinal General gastrointestinal: normal bowel sounds, soft, no splenomegaly, no tenderness, no umbilical hernia - Integumentary Integumentary: normal, normal turgor - Neurologic Neurologic: CNII-XII intact - Musculoskeletal Musculoskeletal: generalized weakness, strength equal bilaterally - Psychiatric Psychiatric: A&O x's 3, appropriate affect, intact judgment & insight - Labs CBC & Chem 7: 06/29/19 06:00 06/29/19 06:00 Labs: Abnormal Lab Results - Last 24 Hours (Table) 06/29/19 06/29/19 06/29/19 Range/Units 12:13 16:50 20:57 POC Glucose (mg/dL) 215 H 157 H 132 H (75-99) mg/dL 06/30/19 Range/Units 07:13 POC Glucose (mg/dL) 159 H (75-99) mg/dL Microbiology - Last 24 Hours (Table) 06/29/19 05:45 Group A Strep Throat Culture - Preliminary Throat Assessment and Plan Plan: 1. Sepsis secondary to Influenza A. Patient will be continued on Tamiflu 75 mg every 12 hours to complete 10 doses, continue DuoNeb treatments every 4 hours as needed, start Solu-Medrol decreased to 40 mg IV every 8 hours. 2. Anemia of chronic disease. No signs of bleeding. 3. History of C.Difficile colitis status post fecal transplant at [facility]. Monitor closely. Avoid antibiotics. 4. History of SVT. Stable. Continue atenolol 100 mg at bedtime. 5. Hypertension and hypertensive cardiovascular disease. Continue atenolol. 6. GERD. Continue Protonix 40 mg daily. 7. Rheumatoid arthritis. Stable. 8. Hypothyroidism. Continue levothyroxine 50 MCG daily 9. Generalized anxiety disorder. Continue Xanax 2 mg every 8 hours as needed 10. Recurrent depression. Continue Celexa 40 mg daily. 11. DVT prophylaxis. Heparin subcu. 12. GI prophylaxis. Protonix 40 mg daily. 13. Chronic back pain. Percocet 10 one every 8 hours as needed. Discharge plan: Most likely return home with nephew most likely on Wednesday Impression and plan of care have been directed as dictated by the signing physician. Domenica Reed nurse practitioner acting as scribe for signing physician.
[2019-06-30 16:54] LABS: Glucose,Whole Blood 215 mg/dL (75-99)
[2019-06-30] MEDS: methylPREDNISolone SOD SUCCI 40 MG/ML 1 ML VIAL IV SCH ×2 (18:28→23:16)
[2019-06-30] MEDS: ATENOLOL 50 MG TAB PO SCH (20:03)
[2019-06-30] MEDS: traZODone HCL 100 MG TAB PO SCH (20:03)
[2019-06-30 20:11] LABS: Glucose,Whole Blood 162 mg/dL (75-99)
[2019-07-01] MEDS: LEVOTHYROXINE 50 MCG TAB PO SCH (06:07)
[2019-07-01 07:01] LABS: Glucose,Whole Blood 137 mg/dL (75-99)
[2019-07-01] MEDS: methylPREDNISolone SOD SUCCI 40 MG/ML 1 ML VIAL IV SCH ×3 (08:21→22:46)
[2019-07-01] MEDS: INSULIN ASPART (NovoLOG) 100 UNIT/ML VIAL SQ SCH ×4 (08:21→19:56)
[2019-07-01] MEDS: OSELTAMIVIR 75 MG CAP PO SCH ×2 (08:22→19:56)
[2019-07-01] MEDS: OXYBUTYNIN CHLORIDE 5 MG TAB PO SCH (08:22)
[2019-07-01] MEDS: FERROUS SULFATE 325 MG TAB PO SCH (08:22)
[2019-07-01] MEDS: oxyCODONE-APAP 10-325MG 1 EACH TAB PO SCH ×3 (08:22→22:44)
[2019-07-01] MEDS: CITALOPRAM HYDROBROMIDE 20 MG TAB PO SCH (08:22)
[2019-07-01] MEDS: PANTOPRAZOLE 40 MG TABLET PO SCH (08:22)
--- NOTE | 2019-07-01 10:42 | P.PN ---
Subjective Progress Note Date: 07/01/19 Principal diagnosis: Sepsis, influenza, COPD, anemia, C. diff, SVT, hypertension, generalized anxiety and panic attack, severe chronic depression. This is a 78-year-old female patient of Dr. Marino with past medical history of hypertension, hypertensive cardiovascular disease, mitral valve prolapse, supraventricular tachycardia, rheumatoid arthritis, GERD, COPD, and recurrent C. diff colitis. 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 diff at [facility] 3. The patient has had multiple hospitalizations regarding anemia with hemoglobin as low as 4.8 and followed by GI and oncology with plan for transfusions/iron infusions as an outpatient. Her most recent hospitalization was in August 2018 which time she was treated for acute anemia secondary to acute blood loss and chronic disease and possible GI bleed and she was transfused for a total of 3 units of packed RBCs. She underwent EGD at that time that showed multiple Silviano erosions without bleeding. She has not had any recent recurrence of C. difficile colitis. Patient complains of feeling ill for the past 3 days with fever, chills and cough with productive sputum. She has some heaviness in her chest when she takes a deep breath. No history of COPD or asthma. Patient presented to [facility] emergency center for evaluation. Temperature 101.7, heart rate 63, respiratory rate 22, blood pressure 133/58, pulse ox 91% on room air. WBC 6.2, hemoglobin 11, platelet count 204. Sodium 132, potassium 3.2, chloride 99, CO2 24, BUN 8 and creatinine 0.63, blood sugar 139. Influenza A positive. Group A strep rapid negative. Chest x-ray shows chronic changes and cardiomegaly without suspicious acute pulmonary process. Patient admitted to the [facility] floor. 06/29: Patient states that her breathing is okay today but she is feeling extremely weak. She complains of her stomach growling loudly, no nausea or vomiting. No abdominal pain. She states she did not sleep last night. She is requesting Ambien in addition to Xanax. She states she normally takes Ambien at home. Patient has been afebrile, heart rate 62, blood pressure 105/61, pulse ox 97% on 2 L nasal cannula. Capillary blood glucose running between 159 and 175. Solu-Medrol will be decreased to 40 mg every 8 hours. Patient states that she will not be able to leave the hospital until Wednesday she does not have anyone available at home. 06/30: Patient still very weak and tired but doing well no fever or chills, hypoxia is much better, patient still treated for influenza and COPD with sign ificant improvement on her symptoms continue current management in if she stable by Wednesday will continue the rest of her ROM influenza course of treatment as an outpatient. Objective - Vital Signs Vital signs: Vital Signs Temp 97.8 F 07/01/19 05:37 Pulse 47 L 07/01/19 05:37 Resp 19 07/01/19 05:37 BP 131/69 07/01/19 05:37 Pulse Ox 98 07/01/19 05:37 Intake & Output 06/30/19 07/01/19 07/01/19 18:59 06:59 18:59 Weight 81.647 kg Other: Voiding Method Toilet # Voids 1 1 # Bowel Movements 0 0 - Exam - Exam Review of Systems Constitutional: Denies chills, Reports fatigue, denies fever, Reports lethargy, Reports malaise, Reports poor appetite, Reports weakness, Denies weight loss Eyes: denies blurred vision, denies pain Ears, nose, mouth and throat: Denies dysphagia, Denies headache, Denies nasal congestion, Denies nasal discharge, Denies sore throat, Denies vertigo Cardiovascular: Reports dyspnea on exertion, Reports shortness of breath, Denies chest pain, Denies decreased exercise tolerance, Denies edema, Denies leg edema, Denies lightheadedness, Denies syncope Respiratory: Reports cough, Reports cough with sputum, Reports dyspnea, Reports respiratory infections, Reports wheezing, Denies excessive sputum, Denies hemoptysis, Denies home oxygen, Denies sleep apnea Gastrointestinal: Reports loss of appetite, Denies abdominal pain, Denies d iarrhea, Denies nausea, Denies vomiting Genitourinary: Denies dysuria, Denies hematuria, Denies urgency, Denies urinary frequency Menstruation: Reports postmenopausal Musculoskeletal: Reports muscle cramps, Denies frequent falls, Denies gait dysfunction, Denies muscle weakness, Denies myalgias Integumentary: Denies pruritus, Denies rash, Denies wounds Neurological: Denies change in mentation, Denies change in speech, Denies numbness, Denies weakness Psychiatric: Denies anxiety, Denies depression Endocrine: Denies fatigue, Denies weight change Physical examination: General Appearance: Alert, cooperative, no distress, appears stated age. Neck HEENT: Supple, no lymphadenopathy, no thyroid enlargement, no carotid bruits. Lungs: Decreased breath sound bilaterally fine rhonchi positive mild crackles in the bases has mild expiratory wheezes. Chest Wall: Decrease expansion with deep inspiration no tenderness and no deformity was found on exam, no costochondral pain or discomfort. Heart: Regular rate and rhythm, S1, S2 normal, no murmur, rub or gallop. Back: Symmetric, no curvature, ROM normal, no CVA tenderness. Abdomen: Soft, non-tender, bowel sounds active all four quadrants, no masses, no organomegaly. Extremities: Extremities normal, atraumatic, no cyanosis or edema. Pulses: 2+ and symmetric. Skin: Skin color, texture, tugor normal, no rashes or lesions. Neurologic: Alert oriented x3 cranial nerves II through XII intact, no motor deficit, no abnormal balance or gait. - Labs CBC & Chem 7: 06/29/19 06:00 06/29/19 06:00 Labs: Abnormal Lab Results - Last 24 Hours (Table) 06/30/19 06/30/19 06/30/19 Range/Units 11:42 16:52 20:05 POC Glucose (mg/dL) 175 H 215 H 162 H (75-99) mg/dL 07/01/19 Range/Units 06:59 POC Glucose (mg/dL) 137 H (75-99) mg/dL Microbiology - Last 24 Hours (Table) 06/29/19 05:45 Group A Strep Throat Culture - Final Throat Assessment and Plan Plan: 1 sepsis: Secondary to severe bronchitis/pneumonia along with influenza continue current treatment management. 2 influenza a: Continue patient on Tamiflu to complete total of 5 days. 3 acute respiratory failure with chronic respiratory failure as well: Secondary to COPD and recurrent bronchitis continue patient on Solu-Medrol along with DuoNeb and Pulmicort. 4 chronic history of C. diff colitis: Post multiple treatment, post fecal transplant at [facility] has been monitor closely and try to avoid antibiotic as much as possible. 5 advance history of COPD: Patient is on DuoNeb, O2 and Pulmicort still seen pulmonary regular basis. 6 hypothyroidism: Remain on levothyroxine 50 g daily. 7 advance rheumatoid arthritis: Stable on current management in managed by Dr. 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 8 recurrent arrhythmia with tachycardia and SVT: Has been on atenolol 100 mg at bedtime. 9 chronic depression: Has been on Celexa 40 mg daily. 10 chronic lower back pain: Has been on Percocet 10 mg 3 times a day. 11 chronic anxiety and panic attack has been on alprazolam and benzodiazepine. 12 chronic iron deficiency anemia: Patient is still doing iron infusion if her hemoglobin is below 11 GERD/GI prophylaxis: Remain on pantoprazole. Discharge planning: Most likely back home with family on Wednesday or Wednesday.
[2019-07-01 12:32] LABS: HCT 34.1 % (34.0-46.0); HGB 10.5 gm/dL (11.4-16.0); Hypochromasia Moderate; MCH 28.4 pg (25.0-35.0); MCHC 30.7 g/dL (31.0-37.0); MCV 92.4 fL (80.0-100.0); Mean Platelet Volume 7.8; Platelet Count 220 k/uL (150-450); RBC 3.68 m/uL (3.80-5.40); RDW 13.6 % (11.5-15.5); WBC 11.6 k/uL (3.8-10.6)
[2019-07-01 12:34] LABS: Glucose,Whole Blood 200 mg/dL (75-99)
[2019-07-01 12:43] LABS: African American GFR (CKD) >90 (>60 ml/min/1.73 sqM); Anion Gap 7 mmol/L; Blood Urea Nitrogen 18 mg/dL (7-17); Calcium 9.1 mg/dL (8.4-10.2); Carbon Dioxide 25 mmol/L (22-30); Chloride 102 mmol/L (98-107); Glucose 103 mg/dL (74-99); Non-African American GFR(CKD) 88 (>60 ml/min/1.73 sqM); Potassium 4.3 mmol/L (3.5-5.1); Sodium 134 mmol/L (137-145)
[2019-07-01] MEDS: IPRATROPIUM-ALBUTEROL 3 ML NEB INHALATION PRN ×2 (13:27→16:31)
[2019-07-01 17:06] LABS: Glucose,Whole Blood 127 mg/dL (75-99)
[2019-07-01 19:48] LABS: Glucose,Whole Blood 242 mg/dL (75-99)
[2019-07-01] MEDS: traZODone HCL 100 MG TAB PO SCH (19:56)
[2019-07-01] MEDS: ATENOLOL 50 MG TAB PO SCH (19:56)
[2019-07-01] MEDS ORDERED: ZOLPIDEM 5 MG TAB PO PRN (20:16)
[2019-07-01] MEDS: MELATONIN 5 MG TABLET PO SCH (22:43)
[2019-07-02] MEDS: LEVOTHYROXINE 50 MCG TAB PO SCH (06:19)
[2019-07-02 07:24] LABS: Glucose,Whole Blood 147 mg/dL (75-99)
[2019-07-02] MEDS: methylPREDNISolone SOD SUCCI 40 MG/ML 1 ML VIAL IV SCH ×2 (07:45→16:27)
[2019-07-02] MEDS: oxyCODONE-APAP 10-325MG 1 EACH TAB PO SCH ×2 (07:46→16:27)
[2019-07-02] MEDS: OSELTAMIVIR 75 MG CAP PO SCH ×2 (07:46→19:41)
[2019-07-02] MEDS: CITALOPRAM HYDROBROMIDE 20 MG TAB PO SCH (07:46)
[2019-07-02] MEDS: FERROUS SULFATE 325 MG TAB PO SCH (07:47)
[2019-07-02] MEDS: OXYBUTYNIN CHLORIDE 5 MG TAB PO SCH (07:47)
[2019-07-02] MEDS: PANTOPRAZOLE 40 MG TABLET PO SCH (07:47)
[2019-07-02] MEDS: INSULIN ASPART (NovoLOG) 100 UNIT/ML VIAL SQ SCH ×4 (08:23→22:00)
--- NOTE | 2019-07-02 11:24 | P.PN ---
Subjective Progress Note Date: 07/02/19 Principal diagnosis: Sepsis, influenza, COPD, anemia, C. diff, SVT, hypertension, generalized anxiety and panic attack, severe chronic depression. This is a 78-year-old female patient of Dr. Marino with past medical history of hypertension, hypertensive cardiovascular disease, mitral valve prolapse, supraventricular tachycardia, rheumatoid arthritis, GERD, COPD, and recurrent C. diff colitis. 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 diff at [facility]. The patient has had multiple hospitalizations regarding anemia with hemoglobin as low as 4.8 and followed by GI and oncology with plan for transfusions/iron infusions as an outpatient. Her most recent hospitalization was in August 2018 which time she was treated for acute anemia secondary to acute blood loss and chronic disease and possible GI bleed and she was transfused for a total of 3 units of packed RBCs. She underwent EGD at that time that showed multiple Silviano erosions without bleeding. She has not had any recent recurrence of C. difficile colitis. Patient complains of feeling ill for the past 3 days with fever, chills and cough with productive sputum. She has some heaviness in her chest when she takes a deep breath. No history of COPD or asthma. Patient presented to [facility] emergency center for evaluation. Temperature 101.7, heart rate 63, respiratory rate 22, blood pressure 133/58, pulse ox 91% on room air. WBC 6.2, hemoglobin 11, platelet count 204. Sodium 132, potassium 3.2, chloride 99, CO2 24, BUN 8 and creatinine 0.63, blood sugar 139. Influenza A positive. Group A strep rapid negative. Chest x-ray shows chronic changes and cardiomegaly without suspicious acute pulmonary process. Patient admitted to the [facility] floor. 06/29: Patient states that her breathing is okay today but she is feeling extremely weak. She complains of her stomach growling loudly, no nausea or vomiting. No abdominal pain. She states she did not sleep last night. She is requesting Ambien in addition to Xanax. She states she normally takes Ambien at home. Patient has been afebrile, heart rate 62, blood pressure 105/61, pulse ox 97% on 2 L nasal cannula. Capillary blood glucose running between 159 and 175. Solu-Medrol will be decreased to 40 mg every 8 hours. Patient states that she will not be able to leave the hospital until Wednesday she does not have anyone available at home. 06/30: Patient still very weak and tired but doing well no fever or chills, hypoxia is much better, patient still treated for influenza and COPD with sign ificant improvement on her symptoms continue current management in if she stable by Wednesday will continue the rest of her ROM influenza course of treatment as an outpatient. 07/01: Patient is doing much better today decrease hypoxia, decreased cough and congestion, COPD is under well control, no diarrhea this point with no recurrent of C. diff. Patient will continue her Tamiflu continue updraft treatment and if she stable tomorrow might be able to send her home to complete the rest of her course as an outpatient. Objective - Vital Signs Vital signs: Vital Signs Temp 97.1 F L 07/02/19 05:09 Pulse 58 L 07/02/19 05:09 Resp 18 07/02/19 05:09 BP 136/81 07/02/19 05:09 Pulse Ox 97 07/02/19 05:09 Intake & Output 07/01/19 07/02/19 07/02/19 18:59 06:59 18:59 Other: Voiding Method Toilet Toilet Toilet # Voids 2 1 # Bowel Movements 0 0 - Exam - Exam Review of Systems Constitutional: Denies chills, Reports fatigue, denies fever, Reports lethargy, Reports malaise, Reports poor appetite, Reports weakness, Denies weight loss Eyes: denies blurred vision, denies pain Ears, nose, mouth and throat: Denies dysphagia, Denies headache, Denies nasal congestion, Denies nasal discharge, Denies sore throat, Denies vertigo Cardiovascular: Reports dyspnea on exertion, Reports shortness of breath, Denies chest pain, Denies decreased exercise tolerance, Denies edema, Denies leg edema, Denies lightheadedness, Denies syncope Respiratory: Reports cough, Reports cough with sputum, Reports dyspnea, Reports respiratory infections, Reports wheezing, Denies excessive sputum, Denies hemoptysis, Denies home oxygen, Denies sleep apnea Gastrointestinal: Reports loss of appetite, Denies abdominal pain, Denies diarrhea, Denies nausea, Denies vomiting Genitourinary: Denies dysuria, Denies hematuria, Denies urgency, Denies urinary frequency Menstruation: Reports postmenopausal Musculoskeletal: Reports muscle cramps, Denies frequent falls, Denies gait dysfunction, Denies muscle weakness, Denies myalgias Integumentary: Denies pruritus, Denies rash, Denies wounds Neurological: Denies change in mentation, Denies change in speech, Denies numbness, Denies weakness Psychiatric: Denies anxiety, Denies depression Endocrine: Denies fatigue, Denies weight change Physical examination: General Appearance: Alert, cooperative, no distress, appears stated age. Neck HEENT: Supple, no lymphadenopathy, no thyroid enlargement, no carotid bruits. Lungs: Decreased breath sound bilaterally fine rhonchi positive mild crackles in the bases has mild expiratory wheezes. Chest Wall: Decrease expansion with deep inspiration no tenderness and no deformity was found on exam, no costochondral pain or discomfort. Heart: Regular rate and rhythm, S1, S2 normal, no murmur, rub or gallop. Back: Symmetric, no curvature, ROM normal, no CVA tenderness. Abdomen: Soft, non-tender, bowel sounds active all four quadrants, no masses, no organomegaly. Extremities: Extremities normal, atraumatic, no cyanosis or edema. Pulses: 2+ and symmetric. Skin: Skin color, texture, tugor normal, no rashes or lesions. Neurologic: Alert oriented x3 cranial nerves II through XII intact, no motor deficit, no abnormal balance or gait. - Labs CBC & Chem 7: 07/01/19 11:49 07/01/19 11:49 Labs: Abnormal Lab Results - Last 24 Hours (Table) 07/01/19 07/01/19 07/01/19 Range/Units 11:49 11:49 12:32 WBC 11.6 H (3.8-10.6) k/uL RBC 3.68 L (3.80-5.40) m/uL Hgb 10.5 L (11.4-16.0) gm/dL MCHC 30.7 L (31.0-37.0) g/dL Sodium 134 L (137-145) mmol/L BUN 18 H (7-17) mg/dL Glucose 103 H (74-99) mg/dL POC Glucose (mg/dL) 200 H (75-99) mg/dL 07/01/19 07/01/19 07/02/19 Range/Units 17:04 19:34 06:57 WBC (3.8-10.6) k/uL RBC (3.80-5.40) m/uL Hgb (11.4-16.0) gm/dL MCHC (31.0-37.0) g/dL Sodium (137-145) mmol/L BUN (7-17) mg/dL Glucose (74-99) mg/dL POC Glucose (mg/dL) 127 H 242 H 147 H (75-99) mg/dL Microbiology - Last 24 Hours (Table) 06/29/19 05:45 Group A Strep Throat Culture - Final Throat Assessment and Plan Plan: 1 sepsis: Secondary to severe bronchitis/pneumonia along with influenza continue current treatment management. 2 influenza a: Continue patient on Tamiflu to complete total of 5 days. 3 acute respiratory failure with chronic respiratory failure as well: Secondary to COPD and recurrent bronchitis continue patient on Solu-Medrol along with DuoNeb and Pulmicort. With switch Solu-Medrol to oral prednisone early tomorrow morning. 4 chronic history of C. diff colitis: Post multiple treatment, post fecal transplant at [facility] has been monitor closely and try to avoid antibiotic as much as possible. 5 advance history of COPD: Patient is on DuoNeb, O2 and Pulmicort still seen pulmonary regular basis. 6 hypothyroidism: Remain on levothyroxine 50 g daily. 7 advance rheumatoid arthritis: Stable on current management in managed by Dr. 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 8 recurrent arrhythmia with tachycardia and SVT: Has been on atenolol 100 mg at bedtime. 9 chronic depression: Has been on Celexa 40 mg daily. 10 chronic lower back pain: Has been on Percocet 10 mg 3 times a day. 11 chronic anxiety and panic attack has been on alprazolam and benzodiazepine. 12 chronic iron deficiency anemia: Patient is still doing iron infusion if her hemoglobin is below 11 GERD/GI prophylaxis: Remain on pantoprazole. Discharge planning: Most likely back home with family on Wednesday or Wednesday.
[2019-07-02 12:11] LABS: Glucose,Whole Blood 119 mg/dL (75-99)
[2019-07-02] MEDS: IPRATROPIUM-ALBUTEROL 3 ML NEB INHALATION PRN ×2 (16:16→20:40)
[2019-07-02 17:25] LABS: Glucose,Whole Blood 116 mg/dL (75-99)
[2019-07-02] MEDS: traZODone HCL 100 MG TAB PO SCH (19:40)
[2019-07-02] MEDS: ATENOLOL 50 MG TAB PO SCH (19:40)
[2019-07-02] MEDS: MELATONIN 5 MG TABLET PO SCH (19:40)
[2019-07-02 20:34] LABS: Glucose,Whole Blood 242 mg/dL (75-99)
[2019-07-03] MEDS: oxyCODONE-APAP 10-325MG 1 EACH TAB PO SCH ×2 (00:24→07:27)
[2019-07-03] MEDS: LEVOTHYROXINE 50 MCG TAB PO SCH (05:09)
[2019-07-03 07:14] LABS: Glucose,Whole Blood 134 mg/dL (75-99)
[2019-07-03] MEDS: IPRATROPIUM-ALBUTEROL 3 ML NEB INHALATION PRN ×2 (07:26→11:20)
[2019-07-03] MEDS: OSELTAMIVIR 75 MG CAP PO SCH ×2 (07:26→16:05)
[2019-07-03] MEDS: PANTOPRAZOLE 40 MG TABLET PO SCH (07:26)
[2019-07-03] MEDS: FERROUS SULFATE 325 MG TAB PO SCH (07:26)
[2019-07-03] MEDS: CITALOPRAM HYDROBROMIDE 20 MG TAB PO SCH (07:27)
[2019-07-03] MEDS: OXYBUTYNIN CHLORIDE 5 MG TAB PO SCH (07:27)
[2019-07-03] MEDS: methylPREDNISolone SOD SUCCI 40 MG/ML 1 ML VIAL IV SCH ×2 (07:27)
[2019-07-03] MEDS: INSULIN ASPART (NovoLOG) 100 UNIT/ML VIAL SQ SCH ×2 (07:28→12:18)
[2019-07-03 08:10] LABS: Basophils % (A) 0 %; Eosinophils % (A) 0 %; HCT 35.9 % (34.0-46.0); Hypochromasia Moderate; Lymphocytes # (A) 0.6 k/uL (1.0-4.8); Lymphocytes % (A) 5 %; MCH 28.3 pg (25.0-35.0); MCHC 30.7 g/dL (31.0-37.0); MCV 92.4 fL (80.0-100.0); Mean Platelet Volume 7.4; Monocytes # (A) 0.5 k/uL (0-1.0); Monocytes % (A) 4 %; Neutrophils # (A) 11.4 k/uL (1.3-7.7); Neutrophils % (A) 90 %; Platelet Count 234 k/uL (150-450); RBC 3.88 m/uL (3.80-5.40); RDW 13.6 % (11.5-15.5); WBC 12.7 k/uL (3.8-10.6)
[2019-07-03 08:21] LABS: ALT 31 U/L (4-34); AST 34 U/L (14-36); African American GFR (CKD) >90 (>60 ml/min/1.73 sqM); Albumin 3.4 g/dL (3.5-5.0); Alkaline Phosphatase 64 U/L (38-126); Anion Gap 8 mmol/L; Blood Urea Nitrogen 23 mg/dL (7-17); Calcium 8.7 mg/dL (8.4-10.2); Carbon Dioxide 26 mmol/L (22-30); Chloride 103 mmol/L (98-107); Glucose 119 mg/dL (74-99); Non-African American GFR(CKD) 83 (>60 ml/min/1.73 sqM); Potassium 4.1 mmol/L (3.5-5.1); Sodium 137 mmol/L (137-145); Total Bilirubin 0.2 mg/dL (0.2-1.3); Total Protein 6.1 g/dL (6.3-8.2)
[2019-07-03 12:15] LABS: Glucose,Whole Blood 133 mg/dL (75-99)
--- NOTE | 2019-07-03 14:02 | P.DS ---
Providers Date of admission: 07/01/19 08:10 Expected date of discharge: 07/03/19 Attending physician: Delmis Mullins MD Primary care physician: Franklyn Marino [facility] Course: This is a 78-year-old female patient of Dr. Marino with past medical history of hypertension, hypertensive cardiovascular disease, mitral valve prolapse, supraventricular tachycardia, rheumatoid arthritis, GERD, COPD, and recurrent C. diff colitis. 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 diff at [facility] 3. The patient has had multiple hospitalizations regarding anemia with hemoglobin as low as 4.8 and followed by GI and oncology with plan for transfusions/iron infusions as an outpatient. Her most recent hospitalization was in August 2018 which time she was treated for acute anemia secondary to acute blood loss and chronic disease and possible GI bleed and she was transfused for a total of 3 units of packed RBCs. She underwent EGD at that time that showed multiple Silviano erosions without bleeding. She has not had any recent recurrence of C. difficile colitis. Patient complains of feeling ill for the past 3 days with fever, chills and cough with productive sputum. She has some heaviness in her chest when she takes a deep breath. No history of COPD or asthma. Patient presented to [facility] emergency center for evaluation. Temperature 101.7, heart rate 63, respiratory rate 22, blood pre ssure 133/58, pulse ox 91% on room air. WBC 6.2, hemoglobin 11, platelet count 204. Sodium 132, potassium 3.2, chloride 99, CO2 24, BUN 8 and creatinine 0.63, blood sugar 139. Influenza A positive. Group A strep rapid negative. Chest x- ray shows chronic changes and cardiomegaly without suspicious acute pulmonary process. Patient admitted to the Med[facility] floor. 06/29: Patient states that her breathing is okay today but she is feeling extremely weak. She complains of her stomach growling loudly, no nausea or vomiting. No abdominal pain. She states she did not sleep last night. She is requesting Ambien in addition to Xanax. She states she normally takes Ambien at home. Patient has been afebrile, heart rate 62, blood pressure 105/61, pulse ox 97% on 2 L nasal cannula. Capillary blood glucose running between 159 and 175. Solu-Medrol will be decreased to 40 mg every 8 hours. Patient states that she will not be able to leave the hospital until Wednesday she does not have anyone adan ilable at home. 06/30: Patient still very weak and tired but doing well no fever or chills, hypoxia is much better, patient still treated for influenza and COPD with significant improvement on her symptoms continue current management in if she stable by Wednesday will continue the rest of her ROM influenza course of treatment as an outpatient. 07/01: Patient is doing much better today decrease hypoxia, decreased cough and congestion, COPD is under well control, no diarrhea this point with no recurrent of C. diff. Patient will continue her Tamiflu continue updraft treatment and if she stable tomorrow might be able to send her home to complete the rest of her course as an outpatient. 07/02: Patient has been afebrile, heart rate 54, blood pressure 164/78, pulse ox 97% on 2 L nasal cannula. Patient denies any new complaints but complains of continued dry cough and heaviness in her chest. She is reluctant to go home today but has been encouraged to go home as there is no treatment that cannot be done at home. Patient is due for her last Tamiflu dose tonight and we will have this given at 4 PM and patient can leave following that. Patient will be sent home on a tapering dose of prednisone. Patient will be discharged home today in stable condition. Discharge diagnoses: 1. Sepsis secondary to Influenza A. 2. Anemia of chronic disease. 3. History of C.Difficile colitis status post fecal transplant at [facility]. 4. History of SVT. 5. Hypertension and hypertensive cardiovascular disease. 6. GERD. 7. Rheumatoid arthritis. Stable. 8. Hypothyroidism. 9. Generalized anxiety disorder. 10. Recurrent depression. 11. Chronic back pain. Discharge plan: home with family Impression and plan of care have been directed as dictated by the signing physician. Domenica Reed nurse practitioner acting as scribe for signing physician. Patient Condition at Discharge: Good Plan - Discharge Summary Discharge Rx Participant: No New Discharge Prescriptions: New predniSONE 0 mg PO DIRECTED #30 tab Continue Citalopram Hydrobromide [CeleXA] 40 mg PO DAILY Furosemide [Lasix] 40 mg PO DAILY Levothyroxine Sodium [Synthroid] 50 mcg PO DAILY Atenolol 100 mg PO HS ALPRAZolam [Xanax] 2 mg PO Q8H PRN PRN Reason: Anxiety traZODone HCL [Desyrel] 200 mg PO HS Ferrous Sulfate [Iron (65 MG Elemental)] 325 mg PO DAILY oxyCODONE-APAP 10-325MG [Percocet 10-325 mg] 1 tab PO Q8HR Potassium Gluconate 99 mg PO DAILY Oxybutynin Chloride [Ditropan] 5 mg PO DAILY Dicyclomine [Bentyl] 10 mg PO TID PRN PRN Reason: stomach cramping Discharge Medication List Citalopram Hydrobromide [CeleXA] 40 mg PO DAILY 05/12/18 [History] Furosemide [Lasix] 40 mg PO DAILY 05/12/18 [History] ALPRAZolam [Xanax] 2 mg PO Q8H PRN 06/06/18 [History] Atenolol 100 mg PO HS 06/06/18 [History] Levothyroxine Sodium [Synthroid] 50 mcg PO DAILY 06/06/18 [History] traZODone HCL [Desyrel] 200 mg PO HS 11/09/18 [History] Dicyclomine [Bentyl] 10 mg PO TID PRN 06/29/19 [History] Ferrous Sulfate [Iron (65 MG Elemental)] 325 mg PO DAILY 06/29/19 [History] Oxybutynin Chloride [Ditropan] 5 mg PO DAILY 06/29/19 [History] Potassium Gluconate 99 mg PO DAILY 06/29/19 [History] oxyCODONE-APAP 10-325MG [Percocet 10-325 mg] 1 tab PO Q8HR 06/29/19 [History] predniSONE 0 mg PO DIRECTED #30 tab 07/03/19 [Rx] Follow up Appointment(s)/Referral(s): Franklyn Marino DO [Primary Care Provider] - 1 Week (office to call you with appt. time and date.) Patient Instructions/Handouts: Influenza (DC), Pneumonia (DC) Activity/Diet/Wound Care/Special Instructions: NO smoking, cessation information given and reviewed. Activity as tolerated, up with walker, fall precautions Regular diet Discharge Disposition: HOME SELF-CARE
[2019-07-03 14:17] VITALS: BP 103/57; PULSE 65; RESP 18; TEMP 98
== END 2019-07-03 16:07 | disposition home or self-care (01) | DRG 871 ==
LOC: EC 05:21 → 6NMEDSUR 06:42 → OBSVTOIN 07-01 08:10
PROVIDERS: ADMIT Internal Medicine; ATTEND Internal Medicine
DX: A41.89 Other specified sepsis (principal); J96.20 Acute and chronic respiratory failure, unspecified whether with hypoxia or hypercapnia; F33.9 Major depressive disorder, recurrent, unspecified; D63.8 Anemia in other chronic diseases classified elsewhere; K21.9 Gastro-esophageal reflux disease without esophagitis; J10.1 Influenza due to other identified influenza virus with other respiratory manifestations; E78.5 Hyperlipidemia, unspecified; E03.9 Hypothyroidism, unspecified; F17.210 Nicotine dependence, cigarettes, uncomplicated; Z96.1 Presence of intraocular lens; Z96.643 Presence of artificial hip joint, bilateral; Z96.653 Presence of artificial knee joint, bilateral; Z96.611 Presence of right artificial shoulder joint; M06.9 Rheumatoid arthritis, unspecified; G89.29 Other chronic pain; I11.9 Hypertensive heart disease without heart failure; F41.1 Generalized anxiety disorder; F41.0 Panic disorder [episodic paroxysmal anxiety]; J44.9 Chronic obstructive pulmonary disease, unspecified; I34.1 Nonrheumatic mitral (valve) prolapse; I48.91 Unspecified atrial fibrillation; Z86.19 Personal history of other infectious and parasitic diseases; Z98.42 Cataract extraction status, left eye; Z98.41 Cataract extraction status, right eye; Z90.49 Acquired absence of other specified parts of digestive tract; Z90.89 Acquired absence of other organs; Z98.890 Other specified postprocedural states; Z82.5 Family history of asthma and other chronic lower respiratory diseases; Z82.49 Family history of ischemic heart disease and other diseases of the circulatory system; Z82.3 Family history of stroke; Z79.899 Other long term (current) drug therapy; Z79.890 Hormone replacement therapy; Z88.1 Allergy status to other antibiotic agents; Z88.0 Allergy status to penicillin; Z88.2 Allergy status to sulfonamides; Z88.8 Allergy status to other drugs, medicaments and biological substances; Z91.09 Other allergy status, other than to drugs and biological substances; Z80.1 Family history of malignant neoplasm of trachea, bronchus and lung; Z90.710 Acquired absence of both cervix and uterus
CPT/HCPCS: 36415; 71045; 80048; 80053; 83605; 83735; 83880; 84145; 84484; 85025; 85027; 85610; 85730; 86140; 87081; 87430; 87502; 93005; 94640; 96361; 96374; 99285

== ENCOUNTER 2019-10-08 14:33 | Observation (INO) | payer MEDICARE ==
[2019-10-08] MEDS ORDERED: PANTOPRAZOLE 40 MG/10 ML VIAL IVP STA (15:04)
[2019-10-08] MEDS ORDERED: SODIUM CHLORIDE 0.9% 1,000 ML IV STA (15:04)
--- NOTE | 2019-10-08 15:08 | ED ---
General Adult HPI - General Chief complaint: GI Bleed Stated complaint: rectal bleeding Time Seen by Provider: 10/08/19 14:40 Source: patient, RN notes reviewed Mode of arrival: wheelchair Limitations: no limitations - History of Present Illness Initial comments: Patient is a pleasant 79-year-old female presenting to the emergency department with concerns for diarrhea and rectal bleeding. Onset of symptoms was several days ago. Symptoms have progressively worsened. Patient has diarrhea a proximal he 5 day's per day with blood associated. Patient also feels she has hemorrhoid. Patient does have occasional nausea and spits up some. Patient has mild discomfort of her abdomen. No recent antibiotic use. - Related Data Home Medications Medication Instructions Recorded Confirmed Citalopram Hydrobromide [CeleXA] 40 mg PO DAILY 05/12/18 10/08/19 Furosemide [Lasix] 40 mg PO DAILY 05/12/18 10/08/19 ALPRAZolam [Xanax] 2 mg PO Q8H PRN 06/06/18 10/08/19 Levothyroxine Sodium [Synthroid] 50 mcg PO DAILY 06/06/18 10/08/19 traZODone HCL [Desyrel] 200 mg PO HS 11/09/18 10/08/19 Ferrous Sulfate [Iron (65 MG 325 mg PO DAILY 06/29/19 10/08/19 Elemental)] oxyCODONE-APAP 10-325MG [Percocet 1 tab PO Q8HR 06/29/19 10/08/19 10-325 mg] Atenolol [Tenormin] 50 mg PO BID 10/08/19 10/08/19 Esomeprazole Magnesium [NexIUM] 20 mg PO DAILY 10/08/19 10/08/19 Melatonin 7.5mg 7.5 mg PO HS 10/08/19 10/08/19 Allergies Allergy/AdvReac Type Severity Reaction Status Date / Time adhesive tape Allergy Rash/Hives Verified 10/08/19 17:05 Influenza Virus Vaccines Allergy "MAKES HER Verified 10/08/19 17:05 FEEL SICK" Sulfa (Sulfonamide Allergy Rash/Hives Verified 10/08/19 17:05 Antibiotics) amoxicillin trihydrate AdvReac Diarrhea Verified 10/08/19 17:05 [From Augmentin] ciprofloxacin [From Cipro] AdvReac Unknown Verified 10/08/19 17:05 metronidazole [From Flagyl] AdvReac Unknown Verified 10/08/19 17:05 potassium clavulanate AdvReac Diarrhea Verified 10/08/19 17:05 [From Augmentin] quinidine AdvReac BLOOD CLOTS Verified 10/08/19 17:05 Review of Systems ROS Statement: Those systems with pertinent positive or pertinent negative responses have been documented in the HPI. ROS Other: All systems not noted in ROS Statement are negative. Constitutional: Denies: fever Eyes: Denies: eye pain ENT: Denies: ear pain Respiratory: Denies: cough Cardiovascular: Denies: chest pain Endocrine: Reports: fatigue Gastrointestinal: Reports: as per HPI, diarrhea, hematochezia Genitourinary: Denies: dysuria Musculoskeletal: Denies: back pain Skin: Denies: rash Past Medical History Past Medical History: Atrial Fibrillation, Atrial Flutter, GERD/Reflux, Hyperlipidemia, Hypertension, Mitral Valve Prolapse (MVP), Rheumatoid Arthritis (RA), Thyroid Disorder Additional Past Medical History / Comment(s): OTHER HX: 03/06/14, 03/30/14, 07/03/14, 07/29/14 with CDIFF colitis, HYPOTHYROID, MVP, urinary incontinence, PROLAPSED MITRAL VALVE- NO PROBLEMS FOR 30 YRS.anemia -requiring blood transfusion History of Any Multi-Drug Resistant Organisms: C-DIFF Date of last positivie culture/infection: 2015 MDRO Source:: Stool Past Surgical History: Adenoidectomy, Cholecystectomy, Hysterectomy, Joint Replacement, Orthopedic Surgery, Tonsillectomy Additional Past Surgical History / Comment(s): 02/18/16 total R hip arthroplasty. Other surgical HX: BILATERAL KNEE REPLACEMENT (2003-RIGHT & 2005 - LEFT); LOWER LUMBAR LAMINECTOMYL4-L5 (2007); LEFT HIP REPLACEMENT (2012); RIGHT SHOULDER REPLACEMENT (2008), left total knee arthroplasty revision. Bilateral cataracts with lens implants. FECAL TRASPLANT TX FOR C-DIFF three times.cataracts-lens implants Past Anesthesia/Blood Transfusion Reactions: No Reported Reaction Additional Past Anesthesia/Blood Transfusion Reaction / Comment(s): blood transfusion in past no reactions Past Psychological History: Anxiety, Depression Smoking Status: Current every day smoker Past Alcohol Use History: None Reported Past Drug Use History: None Reported - Past Family History Mother Family Medical History: Cancer Additional Family Medical History / Comment(s): Mother at age 60 with history of emphysema and lung cancer. Father Family Medical History: CVA/TIA Additional Family Medical History / Comment(s): Father at age 74 with problems with his larynx. Sister(s) Family Medical History: Unable to Obtain Daughter(s) Family Medical History: COPD, Myocardial Infarction ([place]) Additional Family Medical History / Comment(s): Mother at age 60 yrs of emphysema/lung CA Son(s) Family Medical History: Myocardial Infarction ([place]) Additional Family Medical History / Comment(s): Father at age 74yrs with "CVA of his larynx" General Exam Limitations: no limitations General appearance: alert, in no apparent distress Head exam: Present: normocephalic Eye exam: Present: normal appearance ENT exam: Present: normal oropharynx Neck exam: Present: normal inspection Respiratory exam: Present: normal lung sounds bilaterally Cardiovascular Exam: Present: regular rate, normal rhythm GI/Abdominal exam: Present: soft. Absent: distended, tenderness Rectal exam: Present: bloody stool, hemorrhoids (Hemorrhoid at the 3 o'clock position, moderate) Extremities exam: Present: normal inspection Neurological exam: Present: alert Psychiatric exam: Present: normal affect, normal mood Skin exam: Present: normal color Course Vital Signs 10/08/19 10/08/19 10/08/19 14:37 15:59 17:06 Temperature 99.1 F 98.2 F 98.8 F Pulse Rate 59 L 50 L 48 L Respiratory 20 17 18 Rate Blood Pressure 128/69 132/66 118/73 O2 Sat by Pulse 97 97 98 Oximetry - Reevaluation(s) Reevaluation #1: 10/08/19 15:48 Patient reevaluated. Patient and family updated. Angel Patel has been paged for admission. Medical Decision Making - Medical Decision Making Case was discussed with Dr. Zaman, who will admit - Lab Data Result diagrams: 10/08/19 15:08 10/08/19 15:08 Lab Results 10/08/19 10/08/19 10/08/19 Range/Units 15:08 15:08 15:08 WBC 5.9 (3.8-10.6) k/uL RBC 4.56 (3.80-5.40) m/uL Hgb 13.4 (11.4-16.0) gm/dL Hct 40.5 (34.0-46.0) % MCV 88.9 (80.0-100.0) fL MCH 29.4 (25.0-35.0) pg MCHC 33.1 (31.0-37.0) g/dL RDW 16.6 H (11.5-15.5) % Plt Count 282 (150-450) k/uL Neutrophils % 78 % Lymphocytes % 14 % Monocytes % 5 % Eosinophils % 1 % Basophils % 0 % Neutrophils # 4.6 (1.3-7.7) k/uL Lymphocytes # 0.8 L (1.0-4.8) k/uL Monocytes # 0.3 (0-1.0) k/uL Eosinophils # 0.1 (0-0.7) k/uL Basophils # 0.0 (0-0.2) k/uL Hypochromasia Slight Anisocytosis Slight PT 10.1 (9.0-12.0) sec INR 1.0 (<1.2) APTT 22.3 (22.0-30.0) sec Sodium (137-145) mmol/L Potassium (3.5-5.1) mmol/L Chloride (98-107) mmol/L Carbon Dioxide (22-30) mmol/L Anion Gap mmol/L BUN (7-17) mg/dL Creatinine (0.52-1.04) mg/dL Est GFR (CKD-EPI)AfAm (>60 ml/min/1.73 sqM) Est GFR (CKD-EPI)NonAf (>60 ml/min/1.73 sqM) Glucose (74-99) mg/dL Calcium (8.4-10.2) mg/dL Total Bilirubin (0.2-1.3) mg/dL AST (14-36) U/L ALT (4-34) U/L Alkaline Phosphatase (38-126) U/L Total Protein (6.3-8.2) g/dL Albumin (3.5-5.0) g/dL Stool Occult Blood Positive H (Negative) 10/08/19 Range/Units 15:08 WBC (3.8-10.6) k/uL RBC (3.80-5.40) m/uL Hgb (11.4-16.0) gm/dL Hct (34.0-46.0) % MCV (80.0-100.0) fL MCH (25.0-35.0) pg MCHC (31.0-37.0) g/dL RDW (11.5-15.5) % Plt Count (150-450) k/uL Neutrophils % % Lymphocytes % % Monocytes % % Eosinophils % % Basophils % % Neutrophils # (1.3-7.7) k/uL Lymphocytes # (1.0-4.8) k/uL Monocytes # (0-1.0) k/uL Eosinophils # (0-0.7) k/uL Basophils # (0-0.2) k/uL Hypochromasia Anisocytosis PT (9.0-12.0) sec INR (<1.2) APTT (22.0-30.0) sec Sodium 139 (137-145) mmol/L Potassium 3.8 (3.5-5.1) mmol/L Chloride 106 (98-107) mmol/L Carbon Dioxide 24 (22-30) mmol/L Anion Gap 9 mmol/L BUN 10 (7-17) mg/dL Creatinine 0.65 (0.52-1.04) mg/dL Est GFR (CKD-EPI)AfAm >90 (>60 ml/min/1.73 sqM) Est GFR (CKD-EPI)NonAf 86 (>60 ml/min/1.73 sqM) Glucose 114 H (74-99) mg/dL Calcium 9.1 (8.4-10.2) mg/dL Total Bilirubin 0.3 (0.2-1.3) mg/dL AST 22 (14-36) U/L ALT 10 (4-34) U/L Alkaline Phosphatase 80 (38-126) U/L Total Protein 7.0 (6.3-8.2) g/dL Albumin 4.2 (3.5-5.0) g/dL Stool Occult Blood (Negative) Disposition Clinical Impression: GI bleeding Disposition: ADMITTED IP TO THIS HOSP Is patient prescribed a controlled substance at d/c from ED?: No Decision Time: 16:47
[2019-10-08 15:28] LABS: Anisocytosis Slight; Basophils % (A) 0 %; Eosinophils # (A) 0.1 k/uL (0-0.7); Eosinophils % (A) 1 %; HCT 40.5 % (34.0-46.0); HGB 13.4 gm/dL (11.4-16.0); Hypochromasia Slight; Lymphocytes # (A) 0.8 k/uL (1.0-4.8); Lymphocytes % (A) 14 %; MCH 29.4 pg (25.0-35.0); MCHC 33.1 g/dL (31.0-37.0); MCV 88.9 fL (80.0-100.0); Mean Platelet Volume 7.2; Monocytes # (A) 0.3 k/uL (0-1.0); Monocytes % (A) 5 %; Neutrophils # (A) 4.6 k/uL (1.3-7.7); Neutrophils % (A) 78 %; Platelet Count 282 k/uL (150-450); RBC 4.56 m/uL (3.80-5.40); RDW 16.6 % (11.5-15.5); WBC 5.9 k/uL (3.8-10.6)
[2019-10-08 15:30] LABS: ALT 10 U/L (4-34); AST 22 U/L (14-36); African American GFR (CKD) >90 (>60 ml/min/1.73 sqM); Albumin 4.2 g/dL (3.5-5.0); Alkaline Phosphatase 80 U/L (38-126); Anion Gap 9 mmol/L; Blood Urea Nitrogen 10 mg/dL (7-17); Calcium 9.1 mg/dL (8.4-10.2); Carbon Dioxide 24 mmol/L (22-30); Chloride 106 mmol/L (98-107); Glucose 114 mg/dL (74-99); Non-African American GFR(CKD) 86 (>60 ml/min/1.73 sqM); Potassium 3.8 mmol/L (3.5-5.1); Sodium 139 mmol/L (137-145); Total Bilirubin 0.3 mg/dL (0.2-1.3)
[2019-10-08 15:49] LABS: Partial Thromboplastin Time 22.3 sec (22.0-30.0); Prothrombin Time 10.1 sec (9.0-12.0)
[2019-10-08] MEDS ORDERED: NALOXONE 0.4 MG/ML 1 ML VIAL IV PRN (16:47)
[2019-10-08] MEDS: oxyCODONE-APAP 10-325MG 1 EACH TAB PO SCH ×2 (18:05→23:57)
[2019-10-08] MEDS: SODIUM CHLORIDE 0.9% 1,000 ML IV SCH (18:06)
[2019-10-08] MEDS: ATENOLOL 50 MG TAB PO SCH (20:25)
[2019-10-08] MEDS: traZODone HCL 100 MG TAB PO SCH (20:25)
[2019-10-08] MEDS: MELATONIN 5 MG TABLET PO SCH (20:26)
--- NOTE | 2019-10-09 03:09 | HP ---
HISTORY AND PHYSICAL This is a 79-year-old white female who came in the ER with diarrhea and rectal bleeding over several days, progressively worsened diarrhea 5 times per day with blood associated with it, feels she has a hemorrhoid. Occasional nausea. Discomfort of the abdomen. No recent antibiotic use. HOME MEDICINES: 1. Citalopram 40 daily. 2. Lasix 40 daily. 3. Xanax 2 mg q.8. 4. Synthroid 50 mcg daily. 5. Desyrel 200 daily. 6. Iron sulfate 325 daily. 7. Percocet 10 q.8. 8. Tenormin 50 b.i.d. 9. Nexium 20 daily. 10.Melatonin 7.5 daily. ALLERGIES: SULFA, INSULINS, ADHESIVE TAPE, AUGMENTIN, CIPRO, FLAGYL, QUINIDINE. REVIEW OF SYSTEMS: Fourteen-point review of systems negative except for mentioned in HPI. 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 FAMILY HISTORY: Mother cancer of the lung and emphysema. Father had CVA, TIA. Sister negative. Daughter COPD, myocardial infarction. PHYSICAL EXAMINATION: VITAL SIGNS: Temperature 99.1, pulse is 50s to 60s, respiratory rates 16 to 18, blood pressure 118 to 128 over 60s to 70s, O2 is 97% to 98% on room air. HEENT: Pupils equal, round, reactive. NECK: Supple. No mass. RESPIRATORY: Clear. CARDIOVASCULAR: S1, S2. GI: Soft. EXTREMITIES: No cyanosis, clubbing, edema. NEUROLOGIC: Cranial nerves are intact. PSYCH: Fair mood and affect. LABS: Labs were reviewed. ASSESSMENT: 1. Gastrointestinal bleeding, unclear etiology. 2. History of lumbar laminectomy. 3. Clostridium difficile colitis. 4. Nicotine addiction. 5. Hypothyroidism. 6. Hypertension. 7. Gastroesophageal reflux disease. She is admitted. Will check serial CBCs. Follow up with GI consult for possible scopes. MMODL / IJN: [id number] /
[2019-10-09] MEDS: ALPRAZolam 1 MG TAB PO PRN ×2 (03:31→20:28)
[2019-10-09] MEDS: SODIUM CHLORIDE 0.9% 1,000 ML IV SCH ×3 (04:15→23:35)
[2019-10-09] MEDS: LEVOTHYROXINE 50 MCG TAB PO SCH (06:43)
[2019-10-09 07:46] LABS: Anisocytosis Slight; Basophils % (A) 1 %; Eosinophils # (A) 0.1 k/uL (0-0.7); Eosinophils % (A) 3 %; HCT 36.2 % (34.0-46.0); HGB 11.9 gm/dL (11.4-16.0); Hypochromasia Slight; Lymphocytes # (A) 1.1 k/uL (1.0-4.8); Lymphocytes % (A) 26 %; MCH 29.3 pg (25.0-35.0); MCHC 32.8 g/dL (31.0-37.0); MCV 89.4 fL (80.0-100.0); Monocytes # (A) 0.3 k/uL (0-1.0); Monocytes % (A) 7 %; Neutrophils # (A) 2.6 k/uL (1.3-7.7); Neutrophils % (A) 62 %; Platelet Count 215 k/uL (150-450); RBC 4.05 m/uL (3.80-5.40); RDW 16.6 % (11.5-15.5); WBC 4.1 k/uL (3.8-10.6)
[2019-10-09 08:02] LABS: African American GFR (CKD) >90 (>60 ml/min/1.73 sqM); Anion Gap 6 mmol/L; Blood Urea Nitrogen 8 mg/dL (7-17); Calcium 8.2 mg/dL (8.4-10.2); Carbon Dioxide 26 mmol/L (22-30); Chloride 108 mmol/L (98-107); Glucose 83 mg/dL (74-99); Non-African American GFR(CKD) 84 (>60 ml/min/1.73 sqM); Potassium 3.3 mmol/L (3.5-5.1); Sodium 140 mmol/L (137-145)
[2019-10-09] MEDS: oxyCODONE-APAP 10-325MG 1 EACH TAB PO SCH ×3 (08:50→23:33)
[2019-10-09] MEDS: CITALOPRAM HYDROBROMIDE 20 MG TAB PO SCH (08:51)
[2019-10-09] MEDS: FUROSEMIDE 40 MG TAB PO SCH (08:51)
[2019-10-09] MEDS: NICOTINE 14MG/24HR PATCH TRANSDERM SCH (08:51)
[2019-10-09] MEDS: FERROUS SULFATE 325 MG TAB PO SCH (08:51)
[2019-10-09] MEDS: ATENOLOL 50 MG TAB PO SCH ×2 (08:51→20:28)
[2019-10-09] MEDS ORDERED: PANTOPRAZOLE 40 MG/10 ML VIAL IV SCH (09:00)
[2019-10-09] MEDS ORDERED: Potassium Replacement Protocol 1 EACH MISC MISCELLANE PRN (11:14)
[2019-10-09] MEDS: POTASSIUM CHLORIDE ER 20 MEQ TAB.ER PO SCH ×2 (11:52→12:43)
[2019-10-09] MEDS: HYDROCORTISONE SUPPOSITORY 25 MG SUPP RECTAL SCH ×2 (12:39→20:28)
[2019-10-09] MEDS: LOPERAMIDE 2 MG CAP PO SCH ×3 (12:39→23:34)
[2019-10-09] MEDS: PANTOPRAZOLE 40 MG/10 ML VIAL IV SCH (20:27)
[2019-10-09] MEDS: traZODone HCL 100 MG TAB PO SCH (20:28)
[2019-10-09] MEDS: MELATONIN 5 MG TABLET PO SCH (20:28)
--- NOTE | 2019-10-09 22:45 | PN ---
PROGRESS NOTE This patient came in with a GI bleed. Hemoglobin went from 13.4 down to 11.9 today. Potassium is down to 3.3, sodium 140. Thyroid is 4.150. She has stool Hemoccult positive, coronavirus negative. Wait for GI recommendation for possible endoscopy or scope prior to going home. Will check CBC again in the morning. Unclear why there are consults done. GI consult, which was ordered a few days ago, as well as surgical consult. Please see further orders. MMODL / IJN: [id number] /
[2019-10-10] MEDS: LEVOTHYROXINE 50 MCG TAB PO SCH (05:45)
--- NOTE | 2019-10-10 06:34 | P.CONS ---
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 The patient reports problems with diarrhea over the past several months. She reports frequent episodes of loose watery bowel movements. She has subsequently developed painless bright red blood per rectum. The patient has an extensive history of endoscopic evaluation in the past. She has undergone endoscopic evaluation in the past with EGD and colonoscopy in 11/2014 which was significant for a hiatal hernia, Silviano's erosions and colonic diverticulosis. Video capsule endoscopy in 11/2015 was negative. EGD in 01/2017 was significant only for a hiatal hernia and repeat EGD in 2018 for anemia significant for a moderate size hiatal hernia with Silviano's erosions. She is currently denying any abdominal pain but does report soreness and pain in the rectum associated with her hemorrhoids. On presentation WBC 4.1, hemoglobin 11.9, platelet count 215,000 with an INR of 1, total bilirubin 0.3, alkaline phosphatase 80, AST 27 and ALT 10. Occult testing of stool was positive for blood. Per the patient's history she has required fecal transplant at [facility] past for recurrent diarrhea. Review of Systems REVIEW OF SYSTEMS: CONSTITUTIONAL: Denies any fevers, chills, weight change or fatigue. CARDIOVASCULAR: Denies any chest pain, palpitations high or low blood pressures RESPIRATORY: Denies any shortness of breath, hemoptysis but does report cough with sputum production. GENITOURINARY: No dysuria or hematuria, but she does report incontinence of urine. MUSCULOSKELETAL: No weakness reported. SKIN: Denies any new rashes or lesions, jaundice or pallor. PSYCHIATRIC: Denies any depression or anxiety. NEUROLOGY: Denies headache, denies any new focal deficits. EARS/NOSE/THROAT: No recent hearing change, congestion, nasal discharge or sore throat. EYES: No pain in eyes, discharge or change in vision. GASTROINTESTINAL: As per HPI. Past Medical History Past Medical History: Atrial Fibrillation, Atrial Flutter, GERD/Reflux, Hyperlipidemia, Hypertension, Mitral Valve Prolapse (MVP), Rheumatoid Arthritis (RA), Thyroid Disorder Additional Past Medical History / Comment(s): OTHER HX: 03/06/14, 03/30/14, 07/03/14, 07/29/14 with CDIFF colitis, HYPOTHYROID, MVP, urinary incontinence, PROLAPSED MITRAL VALVE- NO PROBLEMS FOR 30 YRS.anemia -requiring blood transfusion History of Any Multi-Drug Resistant Organisms: C-DIFF Year Discovered:: 2016 MDRO Source:: Stool Past Surgical History: Adenoidectomy, Cholecystectomy, Hysterectomy, Joint Re placement, Orthopedic Surgery, Tonsillectomy Additional Past Surgical History / Comment(s): 02/18/16 total R hip arthroplasty. Other surgical HX: BILATERAL KNEE REPLACEMENT (2003-RIGHT & 2005 - LEFT); LOWER LUMBAR LAMINECTOMYL4-L5 (2007); LEFT HIP REPLACEMENT (2012); RIGHT SHOULDER REPLACEMENT (2008), left total knee arthroplasty revision. Bilateral cataracts with lens implants. FECAL TRASPLANT TX FOR C-DIFF three times.cataracts-lens implants Past Anesthesia/Blood Transfusion Reactions: No Reported Reaction Additional Past Anesthesia/Blood Transfusion Reaction / Comm: blood transfusion in past no reactions Past Psychological History: Anxiety, Depression Smoking Status: Current every day smoker Past Alcohol Use History: None Reported Past Drug Use History: None Reported - Past Family History Mother Family Medical History: Cancer Additional Family Medical History / Comment(s): Mother at age 60 with history of emphysema and lung cancer. Father Family Medical History: CVA/TIA Additional Family Medical History / Comment(s): Father at age 74 with problems with his larynx. Sister(s) Family Medical History: Unable to Obtain Daughter(s) Family Medical History: COPD, Myocardial Infarction ([place]) Additional Family Medical History / Comment(s): Mother at age 60 yrs of emphysema/lung CA Son(s) Family Medical History: Myocardial Infarction ([place]) Additional Family Medical History / Comment(s): Father at age 74yrs with "CVA of his larynx" Medications and Allergies Home Medications Medication Instructions Recorded Confirmed Type Citalopram Hydrobromide [CeleXA] 40 mg PO DAILY 05/12/18 10/08/19 History Furosemide [Lasix] 40 mg PO DAILY 05/12/18 10/08/19 History ALPRAZolam [Xanax] 2 mg PO Q8H PRN 06/06/18 10/08/19 History Levothyroxine Sodium [Synthroid] 50 mcg PO DAILY 06/06/18 10/08/19 History traZODone HCL [Desyrel] 200 mg PO HS 11/09/18 10/08/19 History Ferrous Sulfate [Iron (65 MG 325 mg PO DAILY 06/29/19 10/08/19 History Elemental)] oxyCODONE-APAP 10-325MG [Percocet 1 tab PO Q8HR 06/29/19 10/08/19 History 10-325 mg] Atenolol [Tenormin] 50 mg PO BID 10/08/19 10/08/19 History Esomeprazole Magnesium [NexIUM] 20 mg PO DAILY 10/08/19 10/08/19 History Melatonin 7.5mg 7.5 mg PO HS 10/08/19 10/08/19 History Allergies Allergy/AdvReac Type Severity Reaction Status Date / Time adhesive tape Allergy Rash/Hives Verified 10/08/19 17:05 Influenza Virus Vaccines Allergy "MAKES HER Verified 10/08/19 17:05 FEEL SICK" Sulfa (Sulfonamide Allergy Rash/Hives Verified 10/08/19 17:05 Antibiotics) amoxicillin trihydrate AdvReac Diarrhea Verified 10/08/19 17:05 [From Augmentin] ciprofloxacin [From Cipro] AdvReac Unknown Verified 10/08/19 17:05 metronidazole [From Flagyl] AdvReac Unknown Verified 10/08/19 17:05 potassium clavulanate AdvReac Diarrhea Verified 10/08/19 17:05 [From Augmentin] quinidine AdvReac BLOOD CLOTS Verified 10/08/19 17:05 Physical Exam Vitals: Vital Signs Temp Pulse Pulse Resp BP BP Pulse Ox 10/09/19 07:48 97.4 F L 56 L 16 123/59 97 10/09/19 04:00 97.8 F 46 L 18 117/65 96 10/09/19 00:00 97.7 F 49 L 18 121/66 95 10/08/19 20:00 98.0 F 55 L 18 121/59 93 L 10/08/19 17:40 52 L 16 10/08/19 17:18 97.9 F 52 L 16 121/55 95 10/08/19 17:06 98.8 F 48 L 18 118/73 98 10/08/19 15:59 98.2 F 50 L 17 132/66 97 10/08/19 14:37 99.1 F 59 L 20 128/69 97 Intake and Output 10/08/19 10/09/19 10/09/19 22:59 06:59 14:59 Intake Total 2196 Balance 2196 Intake: Intake, IV Titration 1200 Amount Sodium Chloride 0.9% 1, 1200 000 ml @ 100 mls/hr IV . Q10H [facility] Rx#:[id number] Oral 996 Other: Voiding Method Diaper Diaper Diaper Incontinent Incontinent Incontinent # Voids 3 2 Weight 86.183 kg On physical examination, patient appears comfortable in no apparent distress. HEAD: Normocephalic, atraumatic. EYES: No scleral icterus. No conjunctival injection. MOUTH: No lesions, tongue midline. NECK: Trachea midline, no gross abnormalities. CHEST: Decreased air entry in all lung mattson. HEART: S1-S2 appreciated. ABDOMEN: Soft, thin and mildly tender to palpation. Bowel sounds are positive. N o organomegaly. No guarding or rigidity. EXTREMITIES: No pedal edema. SKIN: No rashes, no jaundice. NEUROLOGIC: Alert and oriented. Results CBC & Chem 7: 10/09/19 07:22 10/09/19 07:22 Labs: Abnormal Lab Results - Last 24 Hours (Table) 10/08/19 10/08/19 10/08/19 Range/Units 15:08 15:08 15:08 RDW 16.6 H (11.5-15.5) % Lymphocytes # 0.8 L (1.0-4.8) k/uL Potassium (3.5-5.1) mmol/L Chloride (98-107) mmol/L Glucose 114 H (74-99) mg/dL Calcium (8.4-10.2) mg/dL Stool Occult Blood Positive H (Negative) 10/09/19 10/09/19 Range/Units 07:22 07:22 RDW 16.6 H (11.5-15.5) % Lymphocytes # (1.0-4.8) k/uL Potassium 3.3 L (3.5-5.1) mmol/L Chloride 108 H (98-107) mmol/L Glucose (74-99) mg/dL Calcium 8.2 L (8.4-10.2) mg/dL Stool Occult Blood (Negative) Assessment and Plan (1) Diarrhea Narrative/Plan: 71-year-old female with multiple medical comorbidities including prior history of C. diff colitis requiring fecal matter without a transplant at [facility] as well as a history of iron deficiency anemia with findings of Silviano's erosions on prior endoscopic evaluation with last EGD in 2018 and last colonoscopy in 2014 who presented with complaints of diarrhea over the past several months consisting of loose watery stools. She denies any exposures prio r to developing the symptoms. She has been having bright red blood per rectum with associated soreness in the perirectal region which she associates with hemorrhoidal disease. Hemoglobin 11.9 on presentation which is improved from patient's prior admissions for iron deficiency anemia. Unclear etiology, extensive stool studies ordered with need to rule out recurrent Clostridium difficile infection. Current Visit: No Status: Acute Code(s): R19.7 - DIARRHEA, UNSPECIFIED SNOMED Code(s): 27804134 (2) Rectal hemorrhage Current Visit: Yes Status: Acute Code(s): K62.5 - HEMORRHAGE OF ANUS AND RE CTUM SNOMED Code(s): 41801726 (3) History of Clostridium difficile colitis Current Visit: No Status: Acute Code(s): Z86.19 - PERSONAL HISTORY OF OTHER INFECTIOUS AND PARASITIC DISEASES SNOMED Code(s): 235880396 (4) Status post fecal microbiota transplant Current Visit: No Status: Acute Code(s): OCS6913 - SNOMED Code(s): 41 7088866 Plan: Supportive care Okay for clear liquid diet Stool studies ordered, PCR for Clostridium difficile ordered in the setting of prior history of C. diff requiring fecal microbiology transplant Okay for antidiarrheals at this time, would recommend holding if stool testing is positive Local hemorrhoidal care discussed with the patient extensively and Anusol twice a day ordered Surgical service consult dated due to patient's concerns over rectal bleeding and hemorrhoids and If diarrhea persists and testing for C. diff is positive patient may require referral to tertiary center for fecal transplant Thank you for allowing us to this patient in the care of the patient we will continue to follow
[2019-10-10 08:15] LABS: African American GFR (CKD) >90 (>60 ml/min/1.73 sqM); Anion Gap 4 mmol/L; Blood Urea Nitrogen 7 mg/dL (7-17); Calcium 8.1 mg/dL (8.4-10.2); Carbon Dioxide 27 mmol/L (22-30); Chloride 109 mmol/L (98-107); Glucose 95 mg/dL (74-99); Non-African American GFR(CKD) 85 (>60 ml/min/1.73 sqM); Potassium 3.7 mmol/L (3.5-5.1); Sodium 140 mmol/L (137-145)
[2019-10-10 08:18] LABS: Anisocytosis Slight; Basophils % (A) 1 %; Eosinophils # (A) 0.1 k/uL (0-0.7); Eosinophils % (A) 2 %; HCT 38.6 % (34.0-46.0); HGB 12.2 gm/dL (11.4-16.0); Hypochromasia Slight; Lymphocytes % (A) 21 %; MCH 28.4 pg (25.0-35.0); MCHC 31.6 g/dL (31.0-37.0); MCV 89.8 fL (80.0-100.0); Mean Platelet Volume 6.9; Monocytes # (A) 0.3 k/uL (0-1.0); Monocytes % (A) 8 %; Neutrophils # (A) 3.1 k/uL (1.3-7.7); Neutrophils % (A) 67 %; Platelet Count 201 k/uL (150-450); RDW 16.9 % (11.5-15.5); WBC 4.6 k/uL (3.8-10.6)
[2019-10-10] MEDS: HYDROCORTISONE SUPPOSITORY 25 MG SUPP RECTAL SCH ×2 (08:27→21:13)
[2019-10-10] MEDS: LOPERAMIDE 2 MG CAP PO SCH ×4 (08:27→21:13)
[2019-10-10] MEDS: ATENOLOL 50 MG TAB PO SCH (08:27)
[2019-10-10] MEDS: FUROSEMIDE 40 MG TAB PO SCH (08:27)
[2019-10-10] MEDS: CITALOPRAM HYDROBROMIDE 20 MG TAB PO SCH (08:27)
[2019-10-10] MEDS: PANTOPRAZOLE 40 MG/10 ML VIAL IV SCH ×2 (08:27→21:12)
[2019-10-10] MEDS: FERROUS SULFATE 325 MG TAB PO SCH (08:27)
[2019-10-10] MEDS: SODIUM CHLORIDE 0.9% 1,000 ML IV SCH ×2 (08:28→15:51)
[2019-10-10] MEDS: oxyCODONE-APAP 10-325MG 1 EACH TAB PO SCH ×3 (08:28→23:58)
[2019-10-10] MEDS: NICOTINE 14MG/24HR PATCH TRANSDERM SCH (08:32)
--- NOTE | 2019-10-10 11:24 | P.GSCN ---
History of Present Illness Consult date: 10/10/19 Reason for Consult: Hemorrhoids History of present illness: This a 79-year-old female with chronic history of hemorrhoids. Patient had some minor hemorrhoidal bleeding. She's also complains of pain and burning and itching with hemorrhoids. Past Medical History Past Medical History: Atrial Fibrillation, Atrial Flutter, GERD/Reflux, Hyperlipidemia, Hypertension, Mitral Valve Prolapse (MVP), Rheumatoid Arthritis (RA), Thyroid Disorder Additional Past Medical History / Comment(s): OTHER HX: 03/06/14, 03/30/14, 07/03/14, 07/29/14 with CDIFF colitis, HYPOTHYROID, MVP, urinary incontinence, PROLAPSED MITRAL VALVE- NO PROBLEMS FOR 30 YRS.anemia -requiring blood transfusion History of Any Multi-Drug Resistant Organisms: C-DIFF Year Discovered:: 2016 MDRO Source:: Stool Past Surgical History: Adenoidectomy, Cholecystectomy, Hysterectomy, Joint Replacement, Orthopedic Surgery, Tonsillectomy Additional Past Surgical History / Comment(s): 02/18/16 total R hip arthroplasty. Other surgical HX: BILATERAL KNEE REPLACEMENT (2003-RIGHT & 2005 - LEFT); LOWER LUMBAR LAMINECTOMYL4-L5 (2007); LEFT HIP REPLACEMENT (2012); RIGHT SHOULDER REPLACEMENT (2008), left total knee arthroplasty revision. Bilateral cataracts with lens implants. FECAL TRASPLANT TX FOR C-DIFF three times.cataracts-lens implants Past Anesthesia/Blood Transfusion Reactions: No Reported Reaction Additional Past Anesthesia/Blood Transfusion Reaction / Comm: blood transfusion in past no reactions Past Psychological History: Anxiety, Depression Smoking Status: Current every day smoker Past Alcohol Use History: None Reported Past Drug Use History: None Reported - Past Family History Mother Family Medical History: Cancer Additional Family Medical History / Comment(s): Mother at age 60 with history of emphysema and lung cancer. Father Family Medical History: CVA/TIA Additional Family Medical History / Comment(s): Father at age 74 with problems with his larynx. Sister(s) Family Medical History: Unable to Obtain Daughter(s) Family Medical History: COPD, Myocardial Infarction ([place]) Additional Family Medical History / Comment(s): Mother at age 60 yrs of emphysema/lung CA Son(s) Family Medical History: Myocardial Infarction ([place]) Additional Family Medical History / Comment(s): Father at age 74yrs with "CVA of his larynx" Medications and Allergies Home Medications Medication Instructions Recorded Confirmed Type Citalopram Hydrobromide [CeleXA] 40 mg PO DAILY 05/12/18 10/08/19 History Furosemide [Lasix] 40 mg PO DAILY 05/12/18 10/08/19 History ALPRAZolam [Xanax] 2 mg PO Q8H PRN 06/06/18 10/08/19 History Levothyroxine Sodium [Synthroid] 50 mcg PO DAILY 06/06/18 10/08/19 History traZODone HCL [Desyrel] 200 mg PO HS 11/09/18 10/08/19 History Ferrous Sulfate [Iron (65 MG 325 mg PO DAILY 06/29/19 10/08/19 History Elemental)] oxyCODONE-APAP 10-325MG [Percocet 1 tab PO Q8HR 06/29/19 10/08/19 History 10-325 mg] Atenolol [Tenormin] 50 mg PO BID 10/08/19 10/08/19 History Esomeprazole Magnesium [NexIUM] 20 mg PO DAILY 10/08/19 10/08/19 History Melatonin 7.5mg 7.5 mg PO HS 10/08/19 10/08/19 History Allergies Allergy/AdvReac Type Severity Reaction Status Date / Time adhesive tape Allergy Rash/Hives Verified 10/08/19 17:05 Influenza Virus Vaccines Allergy "MAKES HER Verified 10/08/19 17:05 FEEL SICK" Sulfa (Sulfonamide Allergy Rash/Hives Verified 10/08/19 17:05 Antibiotics) amoxicillin trihydrate AdvReac Diarrhea Verified 10/08/19 17:05 [From Augmentin] ciprofloxacin [From Cipro] AdvReac Unknown Verified 10/08/19 17:05 metronidazole [From Flagyl] AdvReac Unknown Verified 10/08/19 17:05 potassium clavulanate AdvReac Diarrhea Verified 10/08/19 17:05 [From Augmentin] quinidine AdvReac BLOOD CLOTS Verified 10/08/19 17:05 Surgical - Exam Vital Signs Temp Pulse Resp BP Pulse Ox 99.1 F 59 L 20 128/69 97 10/08/19 14:37 10/08/19 14:37 10/08/19 14:37 10/08/19 14:37 10/08/19 14:37 - General well developed, well nourished, no distress - Eyes PERRL - ENT normal pinna - Neck no masses - Respiratory normal expansion - Cardiovascular Rhythm: regular - Abdomen Abdomen: soft, non tender - Rectum Internal and external hemorrhoids Results - Labs 10/10/19 07:39 10/10/19 07:39 Abnormal Lab Results - Last 24 Hours (Table) 10/10/19 10/10/19 Range/Units 07:39 07:39 RDW 16.9 H (11.5-15.5) % Chloride 109 H (98-107) mmol/L Calcium 8.1 L (8.4-10.2) mg/dL Diabetes panel 10/10/19 Range/Units 07:39 Sodium 140 (137-145) mmol/L Potassium 3.7 (3.5-5.1) mmol/L Chloride 109 H (98-107) mmol/L Carbon Dioxide 27 (22-30) mmol/L BUN 7 (7-17) mg/dL Creatinine 0.67 (0.52-1.04) mg/dL Glucose 95 (74-99) mg/dL Calcium 8.1 L (8.4-10.2) mg/dL Calcium panel 10/10/19 Range/Units 07:39 Calcium 8.1 L (8.4-10.2) mg/dL Pituitary panel 10/10/19 Range/Units 07:39 Sodium 140 (137-145) mmol/L Potassium 3.7 (3.5-5.1) mmol/L Chloride 109 H (98-107) mmol/L Carbon Dioxide 27 (22-30) mmol/L BUN 7 (7-17) mg/dL Creatinine 0.67 (0.52-1.04) mg/dL Glucose 95 (74-99) mg/dL Calcium 8.1 L (8.4-10.2) mg/dL Adrenal panel 10/10/19 Range/Units 07:39 Sodium 140 (137-145) mmol/L Potassium 3.7 (3.5-5.1) mmol/L Chloride 109 H (98-107) mmol/L Carbon Dioxide 27 (22-30) mmol/L BUN 7 (7-17) mg/dL Creatinine 0.67 (0.52-1.04) mg/dL Glucose 95 (74-99) mg/dL Calcium 8.1 L (8.4-10.2) mg/dL Assessment and Plan Assessment: Chronic history of hemorrhoids. Patient will follow-up in the office in outpatient. We will plan for outpatient colonoscopy and hemorrhoidectomy
--- NOTE | 2019-10-10 13:46 | P.CRDCN ---
History of Present Illness History of present illness: HISTORY OF PRESENTING ILLNESS This is a pleasant 79-year-old female past medical history significant for valvular heart disease, nonischemic cardiomyopathy, chronic systolic heart failure, COPD, dyslipidemia, hypertension and history of SVT in the past. She used to follow in the office with Dr. Almendarez but has not followed recently. We have been asked to see in consultation for bradycardia. She presented to the hospital with symptoms of diarrhea and blood in the stool. She was found to have hemorrhoids. She has been seen in consultation by GI and surgery and plan is for outpatient colonoscopy and hemorrhoidectomy. Since being in the hospital and on telemetry her heart rates have been running in the 40-50 range. She is seen and examined sitting up in bed eating lunch percent at the bedside. She states her heart rates always run on the low side. She complains of feeling frequently fatigued and listless. She does get dizzy sometimes with activity. EKG to be completed. After data reviewed, WBC 4.6, hemoglobin 12.2, platelets 201, sodium 140, potassium 3.7, creatinine 0.67, TSH 4.15, stool for occult blood is positive. Current daily cardiac medications include atenolol 50 mg twice a day and Lasix 40 mg daily. Most recent echocardiogram obtained in 2018 revealed impaired LV systolic function with ejection fraction 40-45%, aortic stenosis with a mean gradient of 22 mmHg, mild MR and mild TR. At that time the patient was being treated for an acute exacerbation of heart failure and cardiac catheterization was recommended and hemodynamically stable, however the patient never came to the office for follow-up. REVIEW OF SYSTEMS At the time of my exam: CONSTITUTIONAL: Denies fever or chills. CARDIOVASCULAR: Denies chest pain, shortness of breath, orthopnea, PND or palpitations. RESPIRATORY: Denies cough. GASTROINTESTINAL: Denies abdominal pain, diarrhea, constipation, nausea or vomiting. MUSCULOSKELETAL: Denies myalgias. NEUROLOGIC: Denies numbness, tingling or weakness. ENDOCRINE: Complains of fatigue. Denies weight change, polydipsia or polyurina. GENITOURINARY: Denies burning, hematuria or urgency with micturation. HEMATOLOGIC: Denies history of anemia or bleeding. PHYSICAL EXAMINATION Blood pressure 108/53 heart rate 455 afebrile and maintaining oxygen saturation on room air. CONSTITUTIONAL: No apparent distress. HEENT: Head is normocephalic. Pupils are equal, round. Sclerae anicteric. Mucous membranes of the mouth are moist. No JVD. No carotid bruit. CHEST EXAMINATION: Lungs are clear to auscultation. No chest wall tenderness is noted on palpation or with deep breathing. HEART EXAMINATION: Regular rate and rhythm. S1, S2 heard. Systolic ejection murmur at the base, no gallops or rub. ABDOMEN: Soft, nontender. Positive bowel sounds. EXTREMITIES: 2+ peripheral pulses, no lower extremity edema and no calf tenderness. NEUROLOGIC EXAMINATION: Patient is awake, alert and oriented x3. ASSESSMENT Sinus bradycardia Cardiomyopathy Chronic systolic heart failure, clinically euvolemic Hypertension Dyslipidemia COPD PLAN Last dose of atenolol was last night at 2027. Decrease atenolol to 25 mg daily and hold for systolic blood pressure less than 100 or heart rate less than 55. Check magnesium level. Obtain 2-D echocardiogram and Doppler study to assess cardiac structure and function. Ongoing telemetry monitoring for another 24 hours. Further recommendations to follow based on clinical course. Thank you kindly for this consultation. Nurse Practitioner note has been reviewed, I agree with a documented findings and plan of care. Patient was seen and examined. Past Medical History Past Medical History: Atrial Fibrillation, Atrial Flutter, GERD/Reflux, Hyperlipidemia, Hypertension, Mitral Valve Prolapse (MVP), Rheumatoid Arthritis (RA), Thyroid Disorder Additional Past Medical History / Comment(s): OTHER HX: 03/06/14, 03/30/14, 07/03/14, 07/29/14 with CDIFF colitis, HYPOTHYROID, MVP, urinary incontinence, PROLAPSED MITRAL VALVE- NO PROBLEMS FOR 30 YRS.anemia -requiring blood transfusion History of Any Multi-Drug Resistant Organisms: C-DIFF Date of last positivie culture/infection: 2015 MDRO Source:: Stool Past Surgical History: Adenoidectomy, Cholecystectomy, Hysterectomy, Joint Replacement, Orthopedic Surgery, Tonsillectomy Additional Past Surgical History / Comment(s): 02/18/16 total R hip arthroplast y. Other surgical HX: BILATERAL KNEE REPLACEMENT (2003-RIGHT & 2005 - LEFT); LOWER LUMBAR LAMINECTOMYL4-L5 (2007); LEFT HIP REPLACEMENT (2012); RIGHT SHOULDER REPLACEMENT (2008), left total knee arthroplasty revision. Bilateral cataracts with lens implants. FECAL TRASPLANT TX FOR C-DIFF three times.cataracts-lens implants Past Anesthesia/Blood Transfusion Reactions: No Reported Reaction Additional Past Anesthesia/Blood Transfusion Reaction / Comment(s): blood transfusion in past no reactions Past Psychological History: Anxiety, Depression Smoking Status: Current every day smoker Past Alcohol Use History: None Reported Past Drug Use History: None Reported - Past Family History Mother Family Medical History: Cancer Additional Family Medical History / Comment(s): Mother at age 60 with history of emphysema and lung cancer. Father Family Medical History: CVA/TIA Additional Family Medical History / Comment(s): Father at age 74 with problems with his larynx. Sister(s) Family Medical History: Unable to Obtain Daughter(s) Family Medical History: COPD, Myocardial Infarction (MT) Additional Family Medical History / Comment(s): Mother at age 60 yrs of emphysema/lung CA Son(s) Family Medical History: Myocardial Infarction (MT) Additional Family Medical History / Comment(s): Father at age 74yrs with "CVA of his larynx" Medications and Allergies Home Medications Medication Instructions Recorded Confirmed Type Citalopram Hydrobromide [CeleXA] 40 mg PO DAILY 05/12/18 10/08/19 History Furosemide [Lasix] 40 mg PO DAILY 05/12/18 10/08/19 History ALPRAZolam [Xanax] 2 mg PO Q8H PRN 06/06/18 10/08/19 History Levothyroxine Sodium [Synthroid] 50 mcg PO DAILY 06/06/18 10/08/19 History traZODone HCL [Desyrel] 200 mg PO HS 11/09/18 10/08/19 History Ferrous Sulfate [Iron (65 MG 325 mg PO DAILY 06/29/19 10/08/19 History Elemental)] oxyCODONE-APAP 10-325MG [Percocet 1 tab PO Q8HR 06/29/19 10/08/19 History 10-325 mg] Atenolol [Tenormin] 50 mg PO BID 10/08/19 10/08/19 History Esomeprazole Magnesium [NexIUM] 20 mg PO DAILY 10/08/19 10/08/19 History Melatonin 7.5mg 7.5 mg PO HS 10/08/19 10/08/19 History Allergies Allergy/AdvReac Type Severity Reaction Status Date / Time adhesive tape Allergy Rash/Hives Verified 10/08/19 17:05 Influenza Virus Vaccines Allergy "MAKES HER Verified 10/08/19 17:05 FEEL SICK" Sulfa (Sulfonamide Allergy Rash/Hives Verified 10/08/19 17:05 Antibiotics) amoxicillin trihydrate AdvReac Diarrhea Verified 10/08/19 17:05 [From Augmentin] ciprofloxacin [From Cipro] AdvReac Unknown Verified 10/08/19 17:05 metronidazole [From Flagyl] AdvReac Unknown Verified 10/08/19 17:05 potassium clavulanate AdvReac Diarrhea Verified 10/08/19 17:05 [From Augmentin] quinidine AdvReac BLOOD CLOTS Verified 10/08/19 17:05 Physical Exam Vitals: Vital Signs Temp Pulse Resp BP Pulse Ox 10/10/19 08:00 97.6 F 45 L 16 108/53 10/09/19 23:00 97.5 F L 44 L 18 104/59 96 10/09/19 19:59 97.9 F 47 L 20 128/76 94 L 10/09/19 16:00 18 10/09/19 15:00 97.7 F 46 L 18 119/69 95 Intake and Output 10/09/19 10/10/19 10/10/19 22:59 06:59 14:59 Intake Total 236 100 Output Total 0 0 Balance 236 100 Intake: Oral 236 100 Output: Stool 0 0 Other: Voiding Method Diaper Diaper Diaper Incontinent Incontinent Incontinent # Voids 1 2 Results 10/10/19 07:39 10/10/19 07:39 CBC 10/10/19 Range/Units 07:39 WBC 4.6 (3.8-10.6) k/uL RBC 4.30 (3.80-5.40) m/uL Hgb 12.2 (11.4-16.0) gm/dL Hct 38.6 (34.0-46.0) % Plt Count 201 (150-450) k/uL Comprehensive Metabolic Panel 10/10/19 Range/Units 07:39 Sodium 140 (137-145) mmol/L Potassium 3.7 (3.5-5.1) mmol/L Chloride 109 H (98-107) mmol/L Carbon Dioxide 27 (22-30) mmol/L BUN 7 (7-17) mg/dL Creatinine 0.67 (0.52-1.04) mg/dL Glucose 95 (74-99) mg/dL Calcium 8.1 L (8.4-10.2) mg/dL Current Medications Generic Name Dose Route Start Last Admin Trade Name Freq PRN Reason Stop Dose Admin Alprazolam 2 mg 10/08/19 17:50 10/09/19 20:28 Xanax PO 2 mg Q8H PRN Administration Anxiety Atenolol 50 mg 10/08/19 21:00 10/10/19 08:27 Tenormin PO Not Given BID KACY Citalopram Hydrobromide 40 mg 10/09/19 09:00 10/10/19 08:27 Celexa PO 40 mg DAILY KACY Administration Ferrous Sulfate 325 mg 10/09/19 09:00 10/10/19 08:27 Feosol PO 325 mg DAILY KACY Administration Furosemide 40 mg 10/09/19 09:00 10/10/19 08:27 Lasix PO 40 mg DAILY KACY Administration Hydrocortisone Acetate 25 mg 10/09/19 11:30 10/10/19 08:27 Anusol-Hc RECTAL 25 mg BID KACY Administration Sodium Chloride 1,000 mls @ 100 mls/hr 10/08/19 17:00 10/10/19 08:28 Saline 0.9% IV 100 mls/hr .Q10H KACY Administration Levothyroxine Sodium 50 mcg 10/09/19 06:30 10/10/19 05:45 Synthroid PO 50 mcg DAILY@0630 KACY Administration Loperamide HCl 2 mg 10/09/19 13:00 10/10/19 12:34 Imodium PO Not Given QID KACY Melatonin 7.5 mg 10/08/19 21:00 10/09/19 20:28 Melatonin PO 7.5 mg HS KACY Administration Miscellaneous Information 1 each 10/09/19 11:14 Potassium Per Protocol MISCELLANE DAILY PRN Per Protocol Protocol Naloxone HCl 0.2 mg 10/08/19 16:47 Narcan IV Q2M PRN Opioid Reversal Nicotine 1 patch 10/09/19 09:00 10/10/19 08:32 Habitrol 14mg/24hr Patch TRANSDERM Not Given DAILY KACY Oxycodone/Acetaminophen 1 each 10/08/19 18:00 10/10/19 08:28 Percocet 10-325 PO 1 each Q8HR KACY Administration Pantoprazole Sodium 40 mg 10/09/19 21:00 10/10/19 08:27 Protonix IV 40 mg BID KACY Administration Trazodone HCl 200 mg 10/08/19 21:00 10/09/19 20:28 Desyrel PO 200 mg HS KACY Administration Intake and Output 10/09/19 10/10/19 10/10/19 22:59 06:59 14:59 Intake Total 236 100 Output Total 0 0 Balance 236 100 Intake: Oral 236 100 Output: Stool 0 0 Other: Voiding Method Diaper Diaper Diaper Incontinent Incontinent Incontinent # Voids 1 2 10/10/19 07:39 10/10/19 07:39
[2019-10-10] MEDS: traZODone HCL 100 MG TAB PO SCH (21:12)
[2019-10-10] MEDS: ALPRAZolam 1 MG TAB PO PRN (21:12)
[2019-10-10] MEDS: MELATONIN 5 MG TABLET PO SCH (21:12)
--- NOTE | 2019-10-10 22:11 | PN ---
PROGRESS NOTE This is a 79-year-old white female who is going to have EGD and colonoscopy tomorrow or possibly as an outpatient for hemorrhoid surgery. She developed an eye infection, for which ophthalmologic drops are going to be done. Cardiology saw the patient for bradycardia. Stool for occult blood is positive. ASSESSMENT: 1. Sinus bradycardia. 2. Cardiomyopathy. 3. Systolic congestive heart failure. 4. Gastrointestinal bleed. 5. External hemorrhoids. 6. Hypertension. 7. Dyslipidemia. 8. Chronic obstructive pulmonary disease. Decrease atenolol to 25 daily. Check magnesium level. Check hemoglobin. Possible colonoscopy as an outpatient. Please see further orders. MMODL / IJN: [id number] /
[2019-10-10] MEDS: NEOMY-BACIT-POLYMX-HC OPHTH OINT 3.5 GM TUBE BOTH EYES SCH (23:58)
--- NOTE | 2019-10-11 01:50 | P.PN ---
Subjective Progress Note Date: 10/10/19 Principal diagnosis: Diarrhea, blood per rectum Patient seen lying in bed reporting only 1 bowel movement today. No complaints of blood per rectum at this time. Tolerating diet. Objective - Vital Signs Vital signs: Vital Signs Temp 97.6 F 10/10/19 08:00 Pulse 45 L 10/10/19 08:00 Resp 16 10/10/19 08:00 BP 108/53 10/10/19 08:00 Pulse Ox 96 10/09/19 23:00 Intake & Output 10/09/19 10/10/19 10/10/19 18:59 06:59 18:59 Intake Total 5112 520 Output Total 1 0 Balance 5111 520 Intake: Intake, IV Titration 2300 Amount Sodium Chloride 0.9% 1, 2300 000 ml @ 100 mls/hr IV . Q10H KACY Rx#:[id number] Oral 2812 520 Output: Stool 1 0 Other: Voiding Method Diaper Diaper Diaper Incontinent Incontinent Incontinent # Voids 4 2 - Exam On physical examination, patient appears comfortable in no apparent distress. HEAD: Normocephalic, atraumatic. EYES: No scleral icterus. No conjunctival injection. MOUTH: No lesions, tongue midline. NECK: Trachea midline, no gross abnormalities. ABDOMEN: Soft, nontender. Bowel sounds are positive. No organomegaly. No guarding or rigidity. EXTREMITIES: No pedal edema. SKIN: No rashes, no jaundice. NEUROLOGIC: Alert and oriented x3. No focal deficits. - Labs CBC & Chem 7: 10/10/19 07:39 10/10/19 07:39 Labs: Abnormal Lab Results - Last 24 Hours (Table) 10/10/19 10/10/19 Range/Units 07:39 07:39 RDW 16.9 H (11.5-15.5) % Chloride 109 H (98-107) mmol/L Calcium 8.1 L (8.4-10.2) mg/dL Assessment and Plan (1) Diarrhea Narrative/Plan: 79-year-old female with multiple medical comorbidities including prior history of C. diff colitis requiring fecal matter without a transplant at [facility] as well as a history of iron deficiency anemia with findings of Silviano's erosions on prior endoscopic evaluation with last EGD in 2019 and last colonoscopy in 2014 who presented with complaints of diarrhea over the past several months consisting of loose watery stools. She denies any exposures prior to developing the symptoms. She has been having bright red blood per rectum with associated soreness in the perirectal region which she associates with hemorrhoidal disease. Hemoglobin 11.9 on presentation which is improved from patient's prior admissions for iron deficiency anemia. Unclear etiology, extensive stool studies ordered with testing for Clostridium difficile negative. Current Visit: No Status: Acute Code(s): R19.7 - DIARRHEA, UNSPECIFIED SNOMED Code(s): 66699813 (2) Rectal hemorrhage Current Visit: Yes Status: Acute Code(s): K62.5 - HEMORRHAGE OF ANUS AND RECTUM SNOMED Code(s): 67740323 (3) History of Clostridium difficile colitis Current Visit: No Status: Acute Code(s): Z86.19 - PERSONAL HISTORY OF OTHER INFECTIOUS AND PARASITIC DISEASES SNOMED Code(s): 939064925 (4) Status post fecal microbiota transplant Current Visit: No Status: Acute Code(s): KUZ4840 - SNOMED Code(s): 789027271 Plan: Supportive care Okay for diet as tolerated Stool studies ordered, testing for C. diff colitis was negative Okay for antidiarrheals at this time Local hemorrhoidal care discussed with the patient extensively and Anusol twice a day ordered Surgical service consult dated due to patient's concerns over rectal bleeding and hemorrhoids and plan is for hemorrhoidectomy in the outpatient setting Okay for discharge when otherwise medically stable Thank you for allowing us to this patient in the care of the patient, the GI service will stand by, please call us back with any questions or concerns
[2019-10-11] MEDS: NEOMY-BACIT-POLYMX-HC OPHTH OINT 3.5 GM TUBE BOTH EYES SCH ×5 (04:35→20:28)
[2019-10-11] MEDS: SODIUM CHLORIDE 0.9% 1,000 ML IV SCH ×2 (04:43→20:26)
[2019-10-11] MEDS: LEVOTHYROXINE 50 MCG TAB PO SCH (06:27)
[2019-10-11] MEDS: oxyCODONE-APAP 10-325MG 1 EACH TAB PO SCH ×2 (08:31→16:31)
[2019-10-11] MEDS: CITALOPRAM HYDROBROMIDE 20 MG TAB PO SCH (08:31)
[2019-10-11] MEDS: PANTOPRAZOLE 40 MG/10 ML VIAL IV SCH ×2 (08:31→22:12)
[2019-10-11] MEDS: LOPERAMIDE 2 MG CAP PO SCH ×4 (08:31→23:24)
[2019-10-11] MEDS: FUROSEMIDE 40 MG TAB PO SCH (08:31)
[2019-10-11] MEDS: FERROUS SULFATE 325 MG TAB PO SCH (08:31)
[2019-10-11] MEDS: NICOTINE 14MG/24HR PATCH TRANSDERM SCH (08:32)
[2019-10-11] MEDS: HYDROCORTISONE SUPPOSITORY 25 MG SUPP RECTAL SCH ×2 (08:32→22:13)
[2019-10-11] MEDS ORDERED: ATENOLOL 25 MG TAB PO SCH (09:00)
[2019-10-11] MEDS ORDERED: ATENOLOL 50 MG TAB PO SCH (09:00)
--- NOTE | 2019-10-11 09:05 | P.PN ---
Progress Note - Text Progress Note Date: 10/11/19 The patient remained stable. Her hemoglobin was stable. She denies any rectal bleeding. Patient will follow up as an outpatient for rAnoscopy and hemorrhoidectomy.air
[2019-10-11] MEDS ORDERED: BISACODYL 5 MG TABLET.DR PO STA (09:46)
--- NOTE | 2019-10-11 14:10 | P.PN ---
Subjective HISTORY OF PRESENTING ILLNESS This is a pleasant 79-year-old female past medical history significant for valvular heart disease, nonischemic cardiomyopathy, chronic systolic heart failure, COPD, dyslipidemia, hypertension and history of SVT in the past. She used to follow in the office with Dr. Almendarez but has not followed recently. S he is seen and examined laying flat resting comfortably in bed in no acute distress. She has no chest pain, shortness of breath, dizziness or palpitations. Blood pressure 110/63 heart rate 57 afebrile and maintaining oxygen saturation on room air. Echocardiogram has been obtained and will be reviewed. Plan for colonoscopy tomorrow with Dr. Bergman. Telemetry tracings reviewed, frequent PVC's noted with short run of non-sustained VT this afternoon at noontime and short episode of tachycardia around 0821 this morning. PHYSICAL EXAMINATION CONSTITUTIONAL: No apparent distress. HEENT: Head is normocephalic. Pupils are equal, round. Sclerae anicteric. Mucous membranes of the mouth are moist. No JVD. No carotid bruit. CHEST EXAMINATION: Lungs are clear to auscultation. No chest wall tenderness is noted on palpation or with deep breathing. HEART EXAMINATION: Regular rate and rhythm. S1, S2 heard. Systolic ejection murmur at the base, no gallops or rub. EXTREMITIES: 2+ peripheral pulses, no lower extremity edema and no calf tenderness. ASSESSMENT Sinus bradycardia Cardiomyopathy Chronic systolic heart failure, clinically euvolemic Hypertension Dyslipidemia COPD PLAN Continue atenolol 25 mg BID. Ongoing medical management and evaluation with colonoscopy tomorrow. Nurse Practitioner note has been reviewed, I agree with a documented findings and plan of care. Patient was seen and examined. Objective - Vital Signs Vital signs: Vital Signs Temp 97.5 F L 10/11/19 04:33 Pulse 54 L 10/11/19 04:33 Resp 15 10/11/19 04:33 BP 114/55 10/11/19 04:33 Pulse Ox 97 10/11/19 04:33 Intake & Output 10/10/19 10/11/19 10/11/19 18:59 06:59 18:59 Intake Total 750 240 Output Total 0 Balance 750 240 Intake: Oral 750 240 Output: Stool 0 Other: Voiding Method Diaper Incontinent # Voids 1 # Bowel Movements 2 - Labs CBC & Chem 7: 10/10/19 07:39 10/10/19 07:39 Labs: Abnormal Lab Results - Last 24 Hours (Table) 10/10/19 10/10/19 10/10/19 Range/Units 07:39 07:39 10:55 RDW 16.9 H (11.5-15.5) % Chloride 109 H (98-107) mmol/L Calcium 8.1 L (8.4-10.2) mg/dL Stool Lactoferrin POSITIVE H (NEGATIVE) Microbiology - Last 24 Hours (Table) 10/10/19 10:55 Stool Culture - Preliminary Stool
[2019-10-11] MEDS ORDERED: PEG 3350-NA SULF,BICARB,CL/KCL 4,000 ML BOTTLE PO ONE (17:00)
--- NOTE | 2019-10-11 21:48 | P.PN ---
Subjective Progress Note Date: 10/11/19 Principal diagnosis: Diarrhea, blood per rectum Patient seen lying in bed reporting that she is tolerating a diet. No abdominal pain. Continues to have loose stool. Objective - Vital Signs Vital signs: Vital Signs Temp 97.7 F 10/11/19 08:15 Pulse 57 L 10/11/19 08:15 Resp 14 10/11/19 08:15 BP 110/63 10/11/19 08:15 Pulse Ox 96 10/11/19 08:15 Intake & Output 10/10/19 10/11/19 10/11/19 18:59 06:59 18:59 Intake Total 750 360 Output Total 0 Balance 750 360 Intake: Oral 750 360 Output: Stool 0 Other: Voiding Method Diaper Incontinent # Voids 1 1 # Bowel Movements 2 - Exam On physical examination, patient appears comfortable in no apparent distress. HEAD: Normocephalic, atraumatic. EYES: No scleral icterus. No conjunctival injection. MOUTH: No lesions, tongue midline. NECK: Trachea midline, no gross abnormalities. ABDOMEN: Soft, nontender. Bowel sounds are positive. No organomegaly. No guarding or rigidity. EXTREMITIES: No pedal edema. SKIN: No rashes, no jaundice. NEUROLOGIC: Alert and oriented x3. No focal deficits. - Labs CBC & Chem 7: 10/10/19 07:39 10/10/19 07:39 Labs: Abnormal Lab Results - Last 24 Hours (Table) 10/10/19 Range/Units 10:55 Stool Lactoferrin POSITIVE H (NEGATIVE) Microbiology - Last 24 Hours (Table) 10/10/19 10:55 Stool Culture - Preliminary Stool Assessment and Plan (1) Diarrhea Narrative/Plan: 79-year-old female with multiple medical comorbidities including prior history of C. diff colitis requiring fecal matter without a transplant at [facility] as well as a history of iron deficiency anemia with findings of Silviano's erosions on prior endoscopic evaluation with last EGD in 2019 and last colonoscopy in 2015 who presented with complaints of diarrhea over the past several months consisting of loose watery stools. She denies any exposures prior to developing the symptoms. She has been having bright red blood per rectum with associated soreness in the perirectal region which she associates with hemorrhoidal disease. Hemoglobin 11.9 on presentation which is improved from patient's prior admissions for iron deficiency anemia. Unclear etiology, extensive stool studies ordered with testing for Clostridium difficile negative. Current Visit: No Status: Acute Code(s): R19.7 - DIARRHEA, UNSPECIFIED SNOMED Code(s): 36801291 (2) Rectal hemorrhage Current Visit: Yes Status: Acute Code(s): K62.5 - HEMORRHAGE OF ANUS AND RECTUM SNOMED Code(s): 52904814 (3) History of Clostridium difficile colitis Current Visit: No Status: Acute Code(s): Z86.19 - PERSONAL HISTORY OF OTHER INFECTIOUS AND PARASITIC DISEASES SNOMED Code(s): 781208450 (4) Status post fecal microbiota transplant Current Visit: No Status: Acute Code(s): GMK5474 - SNOMED Code(s): 217318244 Plan: Supportive care Okay for clear liquid diet Stool studies ordered, testing for C. diff colitis was negative Okay for antidiarrheals at this time Local hemorrhoidal care discussed with the patient extensively and Anusol twice a day ordered Surgical service consult dated due to patient's concerns over rectal bleeding and hemorrhoids and plan is for hemorrhoidectomy in the outpatient setting Nothing by mouth after midnight Plan for colonoscopy tomorrow Thank for allowing us to to participate in the care of the patient
[2019-10-11] MEDS: ATENOLOL 25 MG TAB PO SCH (22:11)
[2019-10-11] MEDS: MELATONIN 5 MG TABLET PO SCH (22:12)
[2019-10-11] MEDS: traZODone HCL 100 MG TAB PO SCH (22:12)
[2019-10-12] MEDS: oxyCODONE-APAP 10-325MG 1 EACH TAB PO SCH ×3 (00:13→17:23)
[2019-10-12] MEDS: ALPRAZolam 1 MG TAB PO PRN (00:17)
[2019-10-12] MEDS: NEOMY-BACIT-POLYMX-HC OPHTH OINT 3.5 GM TUBE BOTH EYES SCH ×5 (00:18→12:41)
[2019-10-12] MEDS: SODIUM CHLORIDE 0.9% 1,000 ML IV SCH ×2 (01:15→11:45)
[2019-10-12] MEDS: LEVOTHYROXINE 50 MCG TAB PO SCH (07:02)
[2019-10-12 08:37] VITALS: TEMP 97.7
--- NOTE | 2019-10-12 10:42 | P.PN ---
Progress Note - Text Progress Note Date: 10/12/19 Patient remained stable. She is undergoing colonoscopy Dr. Beebe today. She is known history of hemorrhoids. On exam her lesser stable. Abdomen soft. Patient will be scheduled for and hemorrhoidectomy in the outpatient setting.
--- NOTE | 2019-10-12 11:31 | ECHOF ---
Referral Reason:bradycardia, fatigue MEASUREMENTS -------- HEIGHT: 167.6 cm WEIGHT: 86.2 kg BP: 108/53 RVIDd: 3.6 cm (< 3.3) IVSd: 1.3 cm (0.6 - 1.1) LVIDd: 4.0 cm (3.9 - 5.3) LVPWd: 1.2 cm (0.6 - 1.1) IVSs: 1.7 cm LVIDs: 2.2 cm LVPWs: 1.4 cm LA Diam: 2.6 cm (2.7 - 3.8) LAESV Index (A-L): 37.57 ml/m Ao Diam: 3.3 cm (2.0 - 3.7) AV Cusp: 1.7 cm (1.5 - 2.6) MV EXCURSION: 16.312 mm (> 18.000) MV EF SLOPE: 25 mm/s (70 - 150) EPSS: 0.2 cm MV E Jem: 1.36 m/s MV DecT: 414 ms MV A Jem: 1.27 m/s MV E/A Ratio: 1.07 AV maxP.82 mmHg AV meanP.15 mmHg RAP: 5.00 mmHg RVSP: 29.15 mmHg FINDINGS -------- Resting bradycardia (HR<60bpm). This was a technically adequate study. The left ventricular size is normal. There is mild concentric left ventricular hypertrophy. Overa ll left ventricular systolic function is normal with, an EF between 60 - 65 %. The right ventricle is mildly enlarged. LA is moderately dilated 34-39 ml/m2 The right atrium is normal in size. Interatrial and interventricular septum intact. There is moderate aortic valve sclerosis. There is moderate aortic stenosis present. Peak/mean gr adient across the Aortic Valve is 41.82mmHg / 24.15mmHg. Mild mitral annular calcification present. Mild mitral regurgitation is present. Mild tricuspid regurgitation present. There is mild pulmonary hypertension. The right ventricular systolic pressure, as measured by Doppler, is 29.15mmHg. The pulmonic valve was not well visualized. The aortic root size is normal. Normal inferior vena cava with normal inspiratory collapse consistent with estimated right atrial pre ssure of 5 mmHg. There is no pericardial effusion. CONCLUSIONS -------- 1. Resting bradycardia (HR<60bpm). 2. This was a technically adequate study. 3. The left ventricular size is normal. 4. There is mild concentric left ventricular hypertrophy. 5. Overall left ventricular systolic function is normal with, an EF between 60 - 65 %. 6. The right ventricle is mildly enlarged. 7. LA is moderately dilated 34-39 ml/m2 8. The right atrium is normal in size. 9. Interatrial and interventricular septum intact. 10. There is moderate aortic valve sclerosis. 11. There is moderate aortic stenosis present. 12. Peak/mean gradient across the Aortic Valve is 41.82mmHg / 24.15mmHg. 13. Mild mitral annular calcification present. 14. Mild mitral regurgitation is present. 15. Mild tricuspid regurgitation present. 16. There is mild pulmonary hypertension. 17. The right ventricular systolic pressure, as measured by Doppler, is 29.15mmHg. 18. The pulmonic valve was not well visualized. 19. The aortic root size is normal. 20. Normal inferior vena cava with normal inspiratory collapse consistent with estimated right atrial pressure of 5 mmHg. 21. There is no pericardial effusion. PAID SEARCH MANAGER: Leslie Cortes RDCS
[2019-10-12] MEDS: NICOTINE 14MG/24HR PATCH TRANSDERM SCH (11:42)
[2019-10-12] MEDS: HYDROCORTISONE SUPPOSITORY 25 MG SUPP RECTAL SCH (11:42)
[2019-10-12] MEDS: PANTOPRAZOLE 40 MG/10 ML VIAL IV SCH (11:42)
[2019-10-12] MEDS: LOPERAMIDE 2 MG CAP PO SCH ×3 (11:42→17:23)
[2019-10-12] MEDS: FERROUS SULFATE 325 MG TAB PO SCH (11:43)
[2019-10-12] MEDS: CITALOPRAM HYDROBROMIDE 20 MG TAB PO SCH (11:43)
[2019-10-12] MEDS: FUROSEMIDE 40 MG TAB PO SCH (11:43)
[2019-10-12] MEDS: ATENOLOL 25 MG TAB PO SCH (11:43)
--- NOTE | 2019-10-12 11:50 | PN ---
PROGRESS NOTE DATE OF SERVICE: 10/11/2019 This is a white female with GI bleed. EGD and colonoscopy to be done tomorrow prior to being discharge due to positive blood stool lactoferrin suspicious for inflammatory bowel disease. Cardiovascular S1, S2. Lungs clear. GI is soft. Hematology negative Homans. ASSESSMENT: 1. Gastrointestinal bleed. 2. External hemorrhoids. 3. Rheumatoid arthritis. 4. Severe degenerative disc disease. Scope tomorrow. Monitor hemoglobin and possible discharge home tomorrow. MMODL / IJN: [id number] /
--- NOTE | 2019-10-12 11:52 | P.PN ---
Subjective HISTORY OF PRESENTING ILLNESS This is a pleasant 79-year-old female past medical history significant for valvular heart disease, nonischemic cardiomyopathy, chronic systolic heart failure, COPD, dyslipidemia, hypertension and history of SVT in the past. She used to follow in the office with Dr. Almendarez but has not followed recently. She is seen and examined resting comfortably sleeping in bed in no acute distress. She has no symptoms of chest pain, shortness of breath, dizziness or palpitations. She is scheduled to undergo EGD colonoscopy today with Dr. Bergman. Blood pressure 112/64 heart rate 49 afebrile maintaining oxygen saturation on nasal cannula. Echocardiogram obtained reveals preserved LV systolic function with ejection fraction 60-65%, moderately dilated left atrium, moderate aortic valve sclerosis with moderate stenosis and a mean gradient 24 mmHg, mild MR, mild TR and mild pulmonary hypertension with an RVSP of 29 mmHg. Telemetry tracings indicate ongoing sinus bradycardia through the night. Currently maintained on atenolol 25 mg twice a day and Lasix 40 mg daily. PHYSICAL EXAMINATION CONSTITUTIONAL: No apparent distress. HEENT: Head is normocephalic. Pupils are equal, round. Sclerae anicteric. Mucous membranes of the mouth are moist. No JVD. No carotid bruit. CHEST EXAMINATION: Lungs are clear to auscultation. No chest wall tenderness is noted on palpation or with deep breathing. HEART EXAMINATION: Regular rate and rhythm. S1, S2 heard. Systolic ejection murmur at the base, no gallops or rub. EXTREMITIES: 2+ peripheral pulses, no lower extremity edema and no calf tenderness. ASSESSMENT Sinus bradycardia Cardiomyopathy Chronic systolic heart failure, clinically euvolemic. Ejection fraction has improved. Aortic stenosis, moderate Hypertension Dyslipidemia COPD PLAN Decrease atenolol to 25 mg daily in the morning. Ongoing evaluation and treatment of gastrointestinal abnormalities. We will continue to follow as needed, please follow in the office with Dr. Chavez in 2 weeks upon discharge. Nurse Practitioner note has been reviewed, I agree with a documented findings and plan of care. Patient was seen and examined. Objective - Vital Signs Vital signs: Vital Signs Temp 97.7 F 10/12/19 08:36 Pulse 49 L 10/12/19 08:36 Resp 14 10/12/19 04:54 BP 112/64 10/12/19 08:36 Pulse Ox 94 L 10/12/19 08:36 Intake & Output 10/11/19 10/12/19 10/12/19 18:59 06:59 18:59 Intake Total 360 Balance 360 Intake: Oral 360 Other: # Voids 1 # Bowel Movements 5 - Labs CBC & Chem 7: 10/10/19 07:39 10/10/19 07:39
--- NOTE | 2019-10-12 12:17 | P.DS ---
Providers Date of admission: 10/08/19 16:49 Expected date of discharge: 10/12/19 Attending physician: Angel Stewart Consults: 10/10/19 08:58 Consult Physician Routine Consulting Provider: Al Myers Consult Reason/Comments: painful/bleeding hemorrhoids Do you want consulting provider notified?: Yes 10/10/19 11:52 Consult Physician Routine Consulting Provider: Pino Chavez Consult Reason/Comments: bradycardia Do you want consulting provider notified?: Yes 10/11/19 09:59 Consult Physician Routine Consulting Provider: Anthony Bergman Consult Reason/Comments: rectal bleed/colonoscopy Do you want consulting provider notified?: Already Contacted Primary care physician: [facility] Course: Final Diagnoses: Acute GI bleed Possible inflammatory bowel disease, stool culture positive for lactoferrin Status post fecal transplant History of C. difficile colitis External hemorrhoids, outpatient hemorrhoidectomy pending Sinus bradycardia, beta mike decreased Cardiomyopathy, nonischemic Aortic stenosis, moderate Chronic systolic heart failure Hypertension Dyslipidemia COPD Rheumatoid arthritis Severe degenerative disc disease Hospital course this is a 79-year-old female admitted with multiple medical issues including GI bleed evaluated by GI and patient is scheduled for colonoscopy today. Positive stool culture with lactoferrin suspicious for inflammatory bowel disease. Repeat enemas administer this morning as patient not clear, colonoscopies and scheduled for later today. Patient will be discharged home today in a stable condition with guarded prognosis pending colonoscopy, final DC recommendations and clearance from GI. The impression and plan of care has been dictated as directed. : I performed a history and examination of this patient, discussed the same with the dictator. I agree with the dictator's note ,documented as a scribe. Any additional findings or plans will be noted. Patient Condition at Discharge: Stable Plan - Discharge Summary Discharge Rx Participant: No New Discharge Prescriptions: New Jflgi-Dhjrp-Dlodjz-Hc Ophth [Cortisporin Ophth Oint] 1 applic BOTH EYES Q4HR gm Nicotine 14Mg/24Hr Patch [Habitrol] 1 patch TRANSDERM DAILY #30 patch Atenolol [Tenormin] 25 mg PO DAILY #30 tab Pantoprazole Sodium [Protonix] 40 mg PO DAILY #30 tablet. Continue Citalopram Hydrobromide [CeleXA] 40 mg PO DAILY Furosemide [Lasix] 40 mg PO DAILY Levothyroxine Sodium [Synthroid] 50 mcg PO DAILY ALPRAZolam [Xanax] 2 mg PO Q8H PRN PRN Reason: Anxiety traZODone HCL [Desyrel] 200 mg PO HS Ferrous Sulfate [Iron (65 MG Elemental)] 325 mg PO DAILY oxyCODONE-APAP 10-325MG [Percocet 10-325 mg] 1 tab PO Q8HR Esomeprazole Magnesium [NexIUM] 20 mg PO DAILY Melatonin 7.5mg 7.5 mg PO HS Discontinued Atenolol [Tenormin] 50 mg PO BID Discharge Medication List Citalopram Hydrobromide [CeleXA] 40 mg PO DAILY 05/12/18 [History] Furosemide [Lasix] 40 mg PO DAILY 05/12/18 [History] ALPRAZolam [Xanax] 2 mg PO Q8H PRN 06/06/18 [History] Levothyroxine Sodium [Synthroid] 50 mcg PO DAILY 06/06/18 [History] traZODone HCL [Desyrel] 200 mg PO HS 11/09/18 [History] Ferrous Sulfate [Iron (65 MG Elemental)] 325 mg PO DAILY 06/29/19 [History] oxyCODONE-APAP 10-325MG [Percocet 10-325 mg] 1 tab PO Q8HR 06/29/19 [History] Esomeprazole Magnesium [NexIUM] 20 mg PO DAILY 10/08/19 [History] Melatonin 7.5mg 7.5 mg PO HS 10/08/19 [History] Atenolol [Tenormin] 25 mg PO DAILY #30 tab 10/12/19 [Rx] Xbefj-Ilsxn-Ljhjgx-Hc Ophth [Cortisporin Ophth Oint] 1 applic BOTH EYES Q4HR gm 10/12/19 [Rx] Nicotine 14Mg/24Hr Patch [Habitrol] 1 patch TRANSDERM DAILY #30 patch 10/12/19 [Rx] Pantoprazole Sodium [Protonix] 40 mg PO DAILY #30 tablet. 10/12/19 [Rx] Follow up Appointment(s)/Referral(s): Pino Chavez MD [STAFF PHYSICIAN] - 2 Weeks Angel Stewart MD [Primary Care Provider] - 10/11/19 10:30 Al Jon MD [STAFF PHYSICIAN] - 10/17/19 3:30 pm Ambulatory/Diagnostic Orders: Complete Blood Count w/diff [LAB.AMB] Time Frame: 3 Days, Location: None Selected Patient Instructions/Handouts: Hemorrhoids (DC), Rectal Bleeding (DC)
[2019-10-12] MEDS ORDERED: PROPOFOL 10 MG/ML 20 ML VIAL IV ONE (13:40)
[2019-10-12] MEDS ORDERED: ePHEDrine SULFATE/0.9% NACL/PF 50 MG/5 ML SYRINGE IV ONE (13:40)
[2019-10-12] MEDS ORDERED: LIDOCAINE 1% INJ 10MG/ML (20 ML MDV) ONE (13:40)
[2019-10-12] MEDS ORDERED: SODIUM CHLORIDE 0.9% 1,000 ML IV ONE ×2 (13:42)
--- NOTE | 2019-10-12 14:55 | P.PCN ---
Date of Procedure: 10/12/19 Description of Procedure: BRIEF HISTORY: 79-year-old female with multiple medical comorbidities including prior history of C. diff colitis requiring fecal matter without a transplant at [facility] as well as a history of iron deficiency anemia with findings of Silviano's erosions on prior endoscopic evaluation with last EGD in 2018 and last colonoscopy in 2014 who presented with complaints of diarrhea over the past several months consisting of loose watery stools. She denies any exposures prior to developing the symptoms. She has been having bright red blood per rectum with associated soreness in the perirectal region which she associates with hemorrhoidal disease. Hemoglobin 11.9 on presentation which is improved from patient's prior admissions for iron deficiency anemia. Unclear etiology, extensive stool studies ordered with testing for Clostridium difficile negative. PROCEDURE PERFORMED: Colonoscopy with polypectomy and biopsy. PREOPERATIVE DIAGNOSIS: Blood per rectum, altered bowel function, diarrhea. ESTIMATED BLOOD LOSS: Minimal. IV sedation per Anesthesia. PROCEDURE: After informed consent was obtained, the patient, was brought into the endoscopy unit. IV sedation was administered by Anesthesia under continuous monitoring. Digital rectal examination was normal, with large external hemorrhoids on inspection. Initially the Olympus CF-190 flexible video colonoscope was then inserted in the rectum, gradually advanced into the cecum without any dif ficulty. Careful examination was performed as the scope was gradually being withdrawn. Ileocecal valve and the appendiceal orifice were visualized and appeared normal. Prep was fair with a large amount of liquid stool throughout the colon with some solid components. Mucosa of the cecum, ascending colon, transverse colon, descending colon, sigmoid colon, and rectum which was visualized and appeared normal, however complete visualization of the mucosa was limited by fair prep. Multiple small mouth diverticula in the sigmoid colon. The patient had a fixed tortuous colon. Diminutive 3 mm polyps removed from the transverse colon and ascending colon with cold forcep polypectomy. Biopsies taken of the right and left colon in the setting of diarrhea. Retroflexion was performed in the rectum and no lesions were seen, internal hemorrhoids noted. The patient tolerated the procedure well. IMPRESSION: 2 diminutive polyps removed from the transverse colon and ascending colon with cold forceps. Fixed tortuous colon. Sigmoid diverticulosis. Internal and external hemorrhoids. Fair prep. RECOMMENDATIONS: Findings of this examination were discussed with the patient. Okay for diet. Continue local hemorrhoidal care. Patient is to follow up with surgical service after discharge with plan for hemorrhoidectomy. Await pathology from biopsies and polypectomy. Okay for antidiarrheal medicine as needed. Okay for discharge when medically stable, the GI service will stand by.
[2019-10-12 17:48] VITALS: BP 110/70; PULSE 54; RESP 18
[2019-10-13] MEDS ORDERED: ATENOLOL 25 MG TAB PO SCH (09:00)
== END 2019-10-12 19:10 | disposition home or self-care (01) ==
LOC: EC 14:33 → 1SOBS 16:49
PROVIDERS: ADMIT Family Medicine; ATTEND Family Medicine
DX: K62.5 Hemorrhage of anus and rectum (principal); K64.8 Other hemorrhoids; D12.2 Benign neoplasm of ascending colon; D12.3 Benign neoplasm of transverse colon; K64.4 Residual hemorrhoidal skin tags; K57.30 Diverticulosis of large intestine without perforation or abscess without bleeding; Z94.89 Other transplanted organ and tissue status; Z03.818 Encounter for observation for suspected exposure to other biological agents ruled out; R19.7 Diarrhea, unspecified; I48.91 Unspecified atrial fibrillation; I48.92 Unspecified atrial flutter; I47.1 Supraventricular tachycardia; I08.0 Rheumatic disorders of both mitral and aortic valves; I42.8 Other cardiomyopathies; I11.0 Hypertensive heart disease with heart failure; I50.22 Chronic systolic (congestive) heart failure; I49.3 Ventricular premature depolarization; E03.9 Hypothyroidism, unspecified; K21.9 Gastro-esophageal reflux disease without esophagitis; D50.9 Iron deficiency anemia, unspecified; K44.9 Diaphragmatic hernia without obstruction or gangrene; R32 Unspecified urinary incontinence; Z16.24 Resistance to multiple antibiotics; M06.9 Rheumatoid arthritis, unspecified; E78.5 Hyperlipidemia, unspecified; F41.9 Anxiety disorder, unspecified; F32.9 Major depressive disorder, single episode, unspecified; F17.200 Nicotine dependence, unspecified, uncomplicated; Q43.8 Other specified congenital malformations of intestine; Z79.890 Hormone replacement therapy; Z79.899 Other long term (current) drug therapy; Z79.891 Long term (current) use of opiate analgesic; Z88.1 Allergy status to other antibiotic agents; Z88.3 Allergy status to other anti-infective agents; Z88.0 Allergy status to penicillin; Z88.2 Allergy status to sulfonamides; Z88.7 Allergy status to serum and vaccine; Z91.048 Other nonmedicinal substance allergy status; Z88.8 Allergy status to other drugs, medicaments and biological substances; Z90.710 Acquired absence of both cervix and uterus; Z90.49 Acquired absence of other specified parts of digestive tract; Z96.643 Presence of artificial hip joint, bilateral; Z96.653 Presence of artificial knee joint, bilateral; Z87.19 Personal history of other diseases of the digestive system; Z86.19 Personal history of other infectious and parasitic diseases; Z96.611 Presence of right artificial shoulder joint; Z98.42 Cataract extraction status, left eye; Z98.41 Cataract extraction status, right eye; Z96.1 Presence of intraocular lens; Z82.5 Family history of asthma and other chronic lower respiratory diseases; Z80.1 Family history of malignant neoplasm of trachea, bronchus and lung; Z82.49 Family history of ischemic heart disease and other diseases of the circulatory system; Z82.3 Family history of stroke
CPT/HCPCS: 93005; 96361 ×4; 96376 ×4; 96374; 99285; 36415; 93306; 88305; 80053; 80048 ×2; 84443; 83735; 85025 ×3; 85610; 85730; 82272; 87324; 87045; 83630; 87046; 45380; G0378 ×5; U0003; S4990; J2001; J2704; C9113 ×5

== ENCOUNTER 2019-10-15 15:51 | Observation (INO) | payer MEDICARE ==
--- NOTE | 2019-10-15 15:53 | ED ---
GI Bleed HPI - General Stated complaint: GI Bleed Time Seen by Provider: 10/15/19 15:52 - History of Present Illness Initial comments: Patient is a 79-year-old female past medical history of A. fib, hypertension, hyperlipidemia presents emergency room with reported rectal bleed. Patient was recently hospitalized for similar complaint. She had a colonoscopy performed which demonstrated internal and external hemorrhoids. She was discharged home and told to follow-up with Gen. surgery for hemorrhoidectomy. Patient states that since she has been home her bleeding has continued. States is bright red in color. She will have 3 teaspoons with every bowel movement. States he continues to bleed and she is not having a bowel movement. She's not currently on any blood thinners. Due to the persistence of the bleed it has made her extremely lightheaded and weak at home. She also admits to abdominal cramping with persistent diarrhea. Has a history of C. diff with fecal transplant. Denies any recent antibiotic use. Denies any melenic stools. No nausea or vomiting. Denies any fevers or chills. There are no other alleviating, precipitating or modifying factors - Related Data Home Medications Medication Instructions Recorded Confirmed Citalopram Hydrobromide [CeleXA] 40 mg PO DAILY 05/12/18 10/15/19 Furosemide [Lasix] 40 mg PO DAILY 05/12/18 10/15/19 ALPRAZolam [Xanax] 2 mg PO Q8H PRN 06/06/18 10/15/19 Levothyroxine Sodium [Synthroid] 50 mcg PO DAILY 06/06/18 10/15/19 traZODone HCL [Desyrel] 200 mg PO HS 11/09/18 10/15/19 Ferrous Sulfate [Iron (65 MG 325 mg PO DAILY 06/29/19 10/15/19 Elemental)] oxyCODONE-APAP 10-325MG [Percocet 1 tab PO Q8HR 06/29/19 10/15/19 10-325 mg] Melatonin 7.5mg 7.5 mg PO HS 10/08/19 10/15/19 Esomeprazole Magnesium [NexIUM 20 mg PO DAILY 10/15/19 10/15/19 24Hr] Previous Rx's Medication Instructions Recorded Atenolol [Tenormin] 25 mg PO DAILY #30 tab 10/12/19 Loperamide [Imodium] 2 mg PO QID PRN #0 cap 10/19/19 Allergies Allergy/AdvReac Type Severity Reaction Status Date / Time adhesive tape Allergy Rash/Hives Verified 10/15/19 18:05 Influenza Virus Vaccines Allergy "MAKES HER Verified 10/15/19 18:05 FEEL SICK" Sulfa (Sulfonamide Allergy Rash/Hives Verified 10/15/19 18:05 Antibiotics) amoxicillin trihydrate AdvReac Diarrhea Verified 10/15/19 18:05 [From Augmentin] ciprofloxacin [From Cipro] AdvReac Unknown Verified 10/15/19 18:05 metronidazole [From Flagyl] AdvReac Unknown Verified 10/15/19 18:05 potassium clavulanate AdvReac Diarrhea Verified 10/15/19 18:05 [From Augmentin] quinidine AdvReac BLOOD CLOTS Verified 10/15/19 18:05 Review of Systems ROS Statement: Those systems with pertinent positive or pertinent negative responses have been documented in the HPI. ROS Other: All systems not noted in ROS Statement are negative. Past Medical History Past Medical History: Atrial Fibrillation, Atrial Flutter, GERD/Reflux, Hyperlipidemia, Hypertension, Mitral Valve Prolapse (MVP), Rheumatoid Arthritis (RA), Thyroid Disorder Additional Past Medical History / Comment(s): OTHER HX: 03/06/14, 03/30/14, 07/03/14, 07/29/14 with CDIFF colitis, HYPOTHYROID, MVP, urinary incontinence, PROLAPSED MITRAL VALVE- NO PROBLEMS FOR 30 YRS.anemia -requiring blood transfusion History of Any Multi-Drug Resistant Organisms: C-DIFF Date of last positivie culture/infection: 2015 MDRO Source:: Stool Past Surgical History: Adenoidectomy, Cholecystectomy, Hysterectomy, Joint Replacement, Orthopedic Surgery, Tonsillectomy Additional Past Surgical History / Comment(s): 02/18/16 total R hip arthroplasty. Other surgical HX: BILATERAL KNEE REPLACEMENT (2003-RIGHT & 2005 - LEFT); LOWER LUMBAR LAMINECTOMYL4-L5 (2007); LEFT HIP REPLACEMENT (2012); RIGHT SHOULDER REPLACEMENT (2008), left total knee arthroplasty revision. Bilateral cataracts with lens implants. FECAL TRASPLANT TX FOR C-DIFF three times.cataracts-lens implants Past Anesthesia/Blood Transfusion Reactions: No Reported Reaction Additional Past Anesthesia/Blood Transfusion Reaction / Comment(s): blood transfusion in past no reactions Past Psychological History: Anxiety, Depression Smoking Status: Current every day smoker Past Alcohol Use History: None Reported Past Drug Use History: None Reported - Past Family History Mother Family Medical History: Cancer Additional Family Medical History / Comment(s): Mother at age 60 with history of emphysema and lung cancer. Father Family Medical History: CVA/TIA Additional Family Medical History / Comment(s): Father at age 74 with problems with his larynx. Sister(s) Family Medical History: Unable to Obtain Daughter(s) Family Medical History: COPD, Myocardial Infarction (AR) Additional Family Medical History / Comment(s): Mother at age 60 yrs of emphysema/lung CA Son(s) Family Medical History: Myocardial Infarction (AR) Additional Family Medical History / Comment(s): Father at age 74yrs with "CVA of his larynx" General Exam General appearance: alert, in no apparent distress Head exam: Present: atraumatic, normocephalic, normal inspection Eye exam: Present: normal appearance, PERRL, EOMI. Absent: scleral icterus, conjunctival injection, periorbital swelling ENT exam: Present: normal exam, mucous membranes moist Neck exam: Present: normal inspection. Absent: tenderness, meningismus, lymphadenopathy Respiratory exam: Present: normal lung sounds bilaterally. Absent: respiratory distress, wheezes, rales, rhonchi, stridor Cardiovascular Exam: Present: regular rate, normal rhythm, normal heart sounds. Absent: systolic murmur, diastolic murmur, rubs, gallop, clicks GI/Abdominal exam: Present: soft, normal bowel sounds. Absent: distended, tenderness, guarding, rebound, rigid Rectal exam: Present: normal rectal tone, hemorrhoids (external, one appears thrombosed) Extremities exam: Present: normal inspection, full ROM, normal capillary refill. Absent: tenderness, pedal edema, joint swelling, calf tenderness Back exam: Present: normal inspection Neurological exam: Present: alert, oriented X3, CN II-XII intact Psychiatric exam: Present: normal affect, normal mood Skin exam: Present: warm, dry, intact, normal color. Absent: rash Course Vital Signs 10/15/19 10/15/19 16:36 18:39 Temperature 98.1 F Pulse Rate 62 62 Respiratory 18 18 Rate Blood Pressure 117/65 153/80 O2 Sat by Pulse 95 96 Oximetry Medical Decision Making - Medical Decision Making Upon arrival the patient is placed into room 3. A thorough history and physical exam was performed. Rectal exam was performed which demonstrates a thrombosed hemorrhoid. Multiple small hemorrhoids present. There is a small amount of br ight red blood however no significant bleeding. No melanic stools. Peripheral IV was established. Laboratory studies were conducted. The patient is requesting something for pain and therefore I did give her a Percocet. Laboratory studies were conducted and reveal a potassium of 2.9 and a magnesium of 1.6. I did replace the patient fluctuates. I did discuss the case with Dr. Gautam who accepted admission. I will consult GI. Patient is awaiting a bed on the floor - Lab Data Result diagrams: 10/19/19 06:43 10/19/19 06:43 Lab Results 10/15/19 10/15/19 10/15/19 Range/Units 16:50 16:50 16:50 WBC 6.3 (3.8-10.6) k/uL RBC 4.83 (3.80-5.40) m/uL Hgb 13.4 (11.4-16.0) gm/dL Hct 42.3 (34.0-46.0) % MCV 87.4 (80.0-100.0) fL MCH 27.8 (25.0-35.0) pg MCHC 31.8 (31.0-37.0) g/dL RDW 16.4 H (11.5-15.5) % Plt Count 226 (150-450) k/uL Neutrophils % 77 % Lymphocytes % 14 % Monocytes % 6 % Eosinophils % 2 % Basophils % 0 % Neutrophils # 4.9 (1.3-7.7) k/uL Lymphocytes # 0.9 L (1.0-4.8) k/uL Monocytes # 0.4 (0-1.0) k/uL Eosinophils # 0.1 (0-0.7) k/uL Basophils # 0.0 (0-0.2) k/uL Anisocytosis Slight PT 10.2 (9.0-12.0) sec INR 1.0 (<1.2) APTT 21.4 L (22.0-30.0) sec Sodium 139 (137-145) mmol/L Potassium 2.9 L (3.5-5.1) mmol/L Chloride 105 (98-107) mmol/L Carbon Dioxide 26 (22-30) mmol/L Anion Gap 8 mmol/L BUN 8 (7-17) mg/dL Creatinine 0.52 (0.52-1.04) mg/dL Est GFR (CKD-EPI)AfAm >90 (>60 ml/min/1.73 sqM) Est GFR (CKD-EPI)NonAf >90 (>60 ml/min/1.73 sqM) Glucose 148 H (74-99) mg/dL Plasma Lactic Acid Gianluca (0.7-2.0) mmol/L Calcium 9.0 (8.4-10.2) mg/dL Magnesium 1.6 (1.6-2.3) mg/dL Total Bilirubin 0.3 (0.2-1.3) mg/dL AST 28 (14-36) U/L ALT 12 (4-34) U/L Alkaline Phosphatase 72 (38-126) U/L Troponin I (0.000-0.034) ng/mL Total Protein 6.4 (6.3-8.2) g/dL Albumin 3.8 (3.5-5.0) g/dL Stool Occult Blood (Negative) Blood Type Blood Type Recheck Bld Type Recheck Status Antibody Screen Antibody Identification Direct Antiglob Test Spec Expiration Date 10/15/19 10/15/19 10/15/19 Range/Units 16:50 16:50 16:52 WBC (3.8-10.6) k/uL RBC (3.80-5.40) m/uL Hgb (11.4-16.0) gm/dL Hct (34.0-46.0) % MCV (80.0-100.0) fL MCH (25.0-35.0) pg MCHC (31.0-37.0) g/dL RDW (11.5-15.5) % Plt Count (150-450) k/uL Neutrophils % % Lymphocytes % % Monocytes % % Eosinophils % % Basophils % % Neutrophils # (1.3-7.7) k/uL Lymphocytes # (1.0-4.8) k/uL Monocytes # (0-1.0) k/uL Eosinophils # (0-0.7) k/uL Basophils # (0-0.2) k/uL Anisocytosis PT (9.0-12.0) sec INR (<1.2) APTT (22.0-30.0) sec Sodium (137-145) mmol/L Potassium (3.5-5.1) mmol/L Chloride (98-107) mmol/L Carbon Dioxide (22-30) mmol/L Anion Gap mmol/L BUN (7-17) mg/dL Creatinine (0.52-1.04) mg/dL Est GFR (CKD-EPI)AfAm (>60 ml/min/1.73 sqM) Est GFR (CKD-EPI)NonAf (>60 ml/min/1.73 sqM) Glucose (74-99) mg/dL Plasma Lactic Acid Gianluca 1.4 (0.7-2.0) mmol/L Calcium (8.4-10.2) mg/dL Magnesium (1.6-2.3) mg/dL Total Bilirubin (0.2-1.3) mg/dL AST (14-36) U/L ALT (4-34) U/L Alkaline Phosphatase (38-126) U/L Troponin I <0.012 (0.000-0.034) ng/mL Total Protein (6.3-8.2) g/dL Albumin (3.5-5.0) g/dL Stool Occult Blood (Negative) Blood Type A Positive Blood Type Recheck A Pos Bld Type Recheck Status No Antibody Screen POSITIVE Antibody Identification Anti-Little c Direct Antiglob Test Negative Spec Expiration Date 10/18/2019 - 235110/15/19 Range/Units 17:29 WBC (3.8-10.6) k/uL RBC (3.80-5.40) m/uL Hgb (11.4-16.0) gm/dL Hct (34.0-46.0) % MCV (80.0-100.0) fL MCH (25.0-35.0) pg MCHC (31.0-37.0) g/dL RDW (11.5-15.5) % Plt Count (150-450) k/uL Neutrophils % % Lymphocytes % % Monocytes % % Eosinophils % % Basophils % % Neutrophils # (1.3-7.7) k/uL Lymphocytes # (1.0-4.8) k/uL Monocytes # (0-1.0) k/uL Eosinophils # (0-0.7) k/uL Basophils # (0-0.2) k/uL Anisocytosis PT (9.0-12.0) sec INR (<1.2) APTT (22.0-30.0) sec Sodium (137-145) mmol/L Potassium (3.5-5.1) mmol/L Chloride (98-107) mmol/L Carbon Dioxide (22-30) mmol/L Anion Gap mmol/L BUN (7-17) mg/dL Creatinine (0.52-1.04) mg/dL Est GFR (CKD-EPI)AfAm (>60 ml/min/1.73 sqM) Est GFR (CKD-EPI)NonAf (>60 ml/min/1.73 sqM) Glucose (74-99) mg/dL Plasma Lactic Acid Gianluca (0.7-2.0) mmol/L Calcium (8.4-10.2) mg/dL Magnesium (1.6-2.3) mg/dL Total Bilirubin (0.2-1.3) mg/dL AST (14-36) U/L ALT (4-34) U/L Alkaline Phosphatase (38-126) U/L Troponin I (0.000-0.034) ng/mL Total Protein (6.3-8.2) g/dL Albumin (3.5-5.0) g/dL Stool Occult Blood Positive H (Negative) Blood Type Blood Type Recheck Bld Type Recheck Status Antibody Screen Antibody Identification Direct Antiglob Test Spec Expiration Date - EKG Data EKG Comments: EKG demonstrates a normal sinus rhythm with a ventricular rate of 63. KS interval 206. QRS 90. QTC of 45. No acute ST segment elevations or depressions concerning for ischemic changes Disposition Clinical Impression: Hematochezia, External hemorrhoids, Diarrhea, Hypokalemia, Hypomagnesemia Disposition: ADMITTED IP TO THIS [facility] Condition: Stable Is patient prescribed a controlled substance at d/c from ED?: No Decision to Admit Reason: Admit from EC Decision Date: 10/15/19 Decision Time: 17:46
[2019-10-15 17:03] LABS: Anisocytosis Slight; Basophils % (A) 0 %; Eosinophils # (A) 0.1 k/uL (0-0.7); Eosinophils % (A) 2 %; HCT 42.3 % (34.0-46.0); HGB 13.4 gm/dL (11.4-16.0); Lymphocytes # (A) 0.9 k/uL (1.0-4.8); Lymphocytes % (A) 14 %; MCH 27.8 pg (25.0-35.0); MCHC 31.8 g/dL (31.0-37.0); MCV 87.4 fL (80.0-100.0); Mean Platelet Volume 7.2; Monocytes # (A) 0.4 k/uL (0-1.0); Monocytes % (A) 6 %; Neutrophils # (A) 4.9 k/uL (1.3-7.7); Neutrophils % (A) 77 %; Platelet Count 226 k/uL (150-450); RBC 4.83 m/uL (3.80-5.40); RDW 16.4 % (11.5-15.5); WBC 6.3 k/uL (3.8-10.6)
[2019-10-15 17:12] LABS: ALT 12 U/L (4-34); AST 28 U/L (14-36); African American GFR (CKD) >90 (>60 ml/min/1.73 sqM); Albumin 3.8 g/dL (3.5-5.0); Alkaline Phosphatase 72 U/L (38-126); Anion Gap 8 mmol/L; Blood Urea Nitrogen 8 mg/dL (7-17); Carbon Dioxide 26 mmol/L (22-30); Chloride 105 mmol/L (98-107); Glucose 148 mg/dL (74-99); Magnesium 1.6 mg/dL (1.6-2.3); Non-African American GFR(CKD) >90 (>60 ml/min/1.73 sqM); Potassium 2.9 mmol/L (3.5-5.1); Sodium 139 mmol/L (137-145); Total Bilirubin 0.3 mg/dL (0.2-1.3); Total Protein 6.4 g/dL (6.3-8.2)
[2019-10-15 17:22] LABS: Prothrombin Time 10.2 sec (9.0-12.0)
[2019-10-15 17:25] LABS: Partial Thromboplastin Time 21.4 sec (22.0-30.0)
[2019-10-15] MEDS ORDERED: POTASSIUM CHLORIDE 20 MEQ in WATER FOR INJECTION 1 100ML.BAG IVPB STA (17:26)
[2019-10-15] MEDS ORDERED: oxyCODONE-APAP 10-325MG 1 EACH TAB PO STA (17:36)
[2019-10-15] MEDS ORDERED: NALOXONE 0.4 MG/ML 1 ML VIAL IV PRN (17:47)
[2019-10-15] MEDS: MAGNESIUM SULFATE-D5W PMX 1 GM in DEXTROSE/WATER 1 100ML.BAG IVPB SCH ×2 (19:09→21:38)
[2019-10-15] MEDS: traZODone HCL 100 MG TAB PO SCH (21:39)
[2019-10-15] MEDS ORDERED: Potassium Replacement Protocol 1 EACH MISC MISCELLANE PRN (23:24)
[2019-10-16] MEDS ORDERED: oxyCODONE-APAP 10-325MG 1 EACH TAB PO SCH
[2019-10-16] MEDS: ALPRAZolam 1 MG TAB PO PRN ×2 (00:05→22:15)
[2019-10-16] MEDS: POTASSIUM CHLORIDE ER 20 MEQ TAB.ER PO SCH ×5 (00:05→09:17)
[2019-10-16] MEDS: oxyCODONE-APAP 10-325MG 1 EACH TAB PO SCH ×3 (02:29→17:53)
[2019-10-16 04:05] LABS: Anisocytosis Slight; Basophils % (A) 1 %; Eosinophils # (A) 0.1 k/uL (0-0.7); Eosinophils % (A) 3 %; HCT 36.7 % (34.0-46.0); HGB 12.2 gm/dL (11.4-16.0); Lymphocytes # (A) 1.2 k/uL (1.0-4.8); Lymphocytes % (A) 26 %; MCH 29.2 pg (25.0-35.0); MCHC 33.3 g/dL (31.0-37.0); MCV 87.6 fL (80.0-100.0); Monocytes # (A) 0.3 k/uL (0-1.0); Monocytes % (A) 8 %; Neutrophils # (A) 2.7 k/uL (1.3-7.7); Neutrophils % (A) 61 %; Platelet Count 199 k/uL (150-450); RBC 4.19 m/uL (3.80-5.40); RDW 16.4 % (11.5-15.5); WBC 4.4 k/uL (3.8-10.6)
[2019-10-16 04:17] LABS: ALT 10 U/L (4-34); AST 21 U/L (14-36); African American GFR (CKD) >90 (>60 ml/min/1.73 sqM); Albumin 3.2 g/dL (3.5-5.0); Alkaline Phosphatase 66 U/L (38-126); Anion Gap 6 mmol/L; Blood Urea Nitrogen 7 mg/dL (7-17); Calcium 8.7 mg/dL (8.4-10.2); Carbon Dioxide 25 mmol/L (22-30); Chloride 106 mmol/L (98-107); Glucose 79 mg/dL (74-99); Magnesium 2.1 mg/dL (1.6-2.3); Non-African American GFR(CKD) >90 (>60 ml/min/1.73 sqM); Potassium 3.4 mmol/L (3.5-5.1); Sodium 137 mmol/L (137-145); Total Bilirubin 0.2 mg/dL (0.2-1.3); Total Protein 5.5 g/dL (6.3-8.2)
--- NOTE | 2019-10-16 05:15 | HP ---
HISTORY AND PHYSICAL A 79-year-old white female with history of atrial fibrillation, hypertension, dyslipidemia, came in with intermittent rectal bleeding. She recently had a colonoscopy done, which showed internal and external hemorrhoids. Discharged home. Follow up with General Surgery, hemorrhoidectomy, her bleeding has continued since she has been home. Three with every bowel movement. Apparently, the toilet paper is full of blood. She does not take any blood thinners due to extreme lightheadedness, dizziness, weakness, and continued bleeding, persistent diarrhea, abdominal pain and cramping, history of C difficile, she was brought into hospital with GI consultation. HOME MEDICATIONS: 1. Celexa 40 daily. 2. Lasix 40 daily. 3. Xanax 2 mg q.8 hours. 4. Synthroid 50 mcg daily. 5. Desyrel 200 at night. 6. Iron sulfate 325 daily. 7. Percocet 10/325 q.8 hours. 8. Melatonin 7.5 daily. 9. Nexium 40 daily. ALLERGIES: ADHESIVE TAPE, INFLUENZA, SULFA, AUGMENTIN, CIPRO, FLAGYL, POTASSIUM, QUINIDINE. REVIEW OF SYSTEMS: Otherwise 14-point review of systems negative except for mentioned in HPI. PAST MEDICAL HISTORY: Atrial fibrillation, atrial flutter, GERD, dyslipidemia, hypertension, mitral valve prolapse, rheumatoid arthritis, hypothyroidism, history of C difficile colitis, adenoidectomy, cholecystectomy, hysterectomy. MMODL / IJN: [id number] /
--- NOTE | 2019-10-16 05:21 | HP ---
HISTORY AND PHYSICAL CONTINUATION OF HISTORY AND PHYSICAL: FAMILY HISTORY: Father CVA, TIA. Sister negative. Daughter myocardial infarction, COPD. Son myocardial infarction. Mother cancer. PHYSICAL EXAMINATION: Temperature 98.1, pulse 62, respiratory 16 to 18, blood pressure 117/65, O2 saturation 95%. CARDIOVASCULAR: S1, S2. LUNGS: Clear. GI: Soft. HEMATOLOGY: Negative Homans. PSYCH: Fair mood and affect, appears anxious. ASSESSMENT: 1. She has a small amount of bright red blood from the rectum and thrombosed hemorrhoid. Multiple small hemorrhoids. Pain control. Surgical consult will be done. 2. Severe hypokalemia due to diarrhea. 3. Hypomagnesemia. 4. Hypokalemia. 5. Diarrhea. Continue current treatment. Potassium and magnesium supplementation. Wait for GI consultation. EKG shows sinus rhythm, no ischemia. Please see further orders. MMODL / IJN: [id number] /
[2019-10-16] MEDS ORDERED: Potassium Replacement Protocol 1 EACH MISC MISCELLANE PRN (06:05)
[2019-10-16] MEDS: LEVOTHYROXINE 50 MCG TAB PO SCH (06:29)
[2019-10-16] MEDS: NICOTINE 14MG/24HR PATCH TRANSDERM SCH ×2 (07:33→07:41)
[2019-10-16] MEDS: PANTOPRAZOLE 40 MG TABLET PO SCH (07:34)
[2019-10-16] MEDS: ATENOLOL 25 MG TAB PO SCH (07:34)
[2019-10-16] MEDS: CITALOPRAM HYDROBROMIDE 20 MG TAB PO SCH (07:34)
[2019-10-16] MEDS: FUROSEMIDE 40 MG TAB PO SCH (07:34)
[2019-10-16] MEDS: FERROUS SULFATE 325 MG TAB PO SCH (07:34)
[2019-10-16] MEDS ORDERED: NON FORMULARY DRUG (Esomeprazole Magnesium [Nexium] 20 MG) PO SCH (09:00)
--- NOTE | 2019-10-16 13:36 | P.GSCN ---
History of Present Illness Consult date: 10/16/19 Reason for Consult: Hemorrhoids History of present illness: This a 71-year-old female who had a recent hospital admission for lower GI bleed and hemorrhoids. The patient underwent recent colonoscopy by the GI service. She noted to have interventional hemorrhoids. She is she is scheduled to see me in the office next week to set up her hemorrhoidectomy surgery. Patient was readmitted for some rectal bleeding. Her hemoglobin is stable. Past Medical History Past Medical History: Atrial Fibrillation, Atrial Flutter, GERD/Reflux, Hypertension, Mitral Valve Prolapse (MVP), Rheumatoid Arthritis (RA) Additional Past Medical History / Comment(s): OTHER HX: 03/06/14, 03/30/14, 07/03/14, 07/29/14 with CDIFF colitis, MVP, urinary incontinence, PROLAPSED MITRAL VALVE- NO PROBLEMS FOR 30 YRS.anemia -requiring blood transfusion History of Any Multi-Drug Resistant Organisms: C-DIFF Year Discovered:: 2016 MDRO Source:: Stool Past Surgical History: Adenoidectomy, Cholecystectomy, Hysterectomy, Joint Replacement, Orthopedic Surgery, Tonsillectomy Additional Past Surgical History / Comment(s): 02/18/16 total R hip arthroplasty. Other surgical HX: BILATERAL KNEE REPLACEMENT (2003-RIGHT & 2005 - LEFT); LOWER LUMBAR LAMINECTOMYL4-L5 (2007); LEFT HIP REPLACEMENT (2012); RIGHT SHOULDER REPLACEMENT (2008), left total knee arthroplasty revision. Bila teral cataracts with lens implants. FECAL TRASPLANT TX FOR C-DIFF three times.cataracts-lens implants Past Anesthesia/Blood Transfusion Reactions: No Reported Reaction Additional Past Anesthesia/Blood Transfusion Reaction / Comm: blood transfusion in past no reactions Past Psychological History: Anxiety, Depression Additional Psychological History / Comment(s): Pt resides in her own home. Her nephew who is very ill stays with pt. She uses a walker to ambulate. She has a nebulizer, She is able to drive. Smoking Status: Current every day smoker Past Alcohol Use History: None Reported Additional Past Alcohol Use History / Comment(s): Patient has smoked since 1953- 5 cig per day.No alcohol use or abuse. No street drug use no marijuana use. Past Drug Use History: None Reported - Past Family History Mother Family Medical History: Cancer Additional Family Medical History / Comment(s): Mother at age 60 with history of emphysema and lung cancer. Father Family Medical History: CVA/TIA Additional Family Medical History / Comment(s): Father at age 74 with problems with his larynx. Sister(s) Family Medical History: Unable to Obtain Daughter(s) Family Medical History: COPD, Myocardial Infarction (HI) Additional Family Medical History / Comment(s): Mother at age 60 yrs of emphysema/lung CA Son(s) Family Medical History: Myocardial Infarction (HI) Additional Family Medical History / Comment(s): Father at age 74yrs with "CVA of his larynx" Medications and Allergies Home Medications Medication Instructions Recorded Confirmed Type Citalopram Hydrobromide [CeleXA] 40 mg PO DAILY 05/12/18 10/15/19 History Furosemide [Lasix] 40 mg PO DAILY 05/12/18 10/15/19 History ALPRAZolam [Xanax] 2 mg PO Q8H PRN 06/06/18 10/15/19 History Levothyroxine Sodium [Synthroid] 50 mcg PO DAILY 06/06/18 10/15/19 History traZODone HCL [Desyrel] 200 mg PO HS 11/09/18 10/15/19 History Ferrous Sulfate [Iron (65 MG 325 mg PO DAILY 06/29/19 10/15/19 History Elemental)] oxyCODONE-APAP 10-325MG [Percocet 1 tab PO Q8HR 06/29/19 10/15/19 History 10-325 mg] Melatonin 7.5mg 7.5 mg PO HS 10/08/19 10/15/19 History Atenolol [Tenormin] 25 mg PO DAILY #30 tab 10/12/19 10/15/19 Rx Esomeprazole Magnesium [NexIUM 20 mg PO DAILY 10/15/19 10/15/19 History 24Hr] Allergies Allergy/AdvReac Type Severity Reaction Status Date / Time adhesive tape Allergy Rash/Hives Verified 10/15/19 18:05 Influenza Virus Vaccines Allergy "MAKES HER Verified 10/15/19 18:05 FEEL SICK" Sulfa (Sulfonamide Allergy Rash/Hives Verified 10/15/19 18:05 Antibiotics) amoxicillin trihydrate AdvReac Diarrhea Verified 10/15/19 18:05 [From Augmentin] ciprofloxacin [From Cipro] AdvReac Unknown Verified 10/15/19 18:05 metronidazole [From Flagyl] AdvReac Unknown Verified 10/15/19 18:05 potassium clavulanate AdvReac Diarrhea Verified 10/15/19 18:05 [From Augmentin] quinidine AdvReac BLOOD CLOTS Verified 10/15/19 18:05 Surgical - Exam Vital Signs Temp Pulse Resp BP Pulse Ox 98.1 F 62 18 117/65 95 10/15/19 16:36 10/15/19 16:36 10/15/19 16:36 10/15/19 16:36 10/15/19 16:36 - General well developed, no distress - Eyes PERRL - ENT normal pinna - Neck no masses - Respiratory normal expansion - Cardiovascular Rhythm: regular - Abdomen Abdomen: soft, non tender - Rectum Internal and external hemorrhoids Results - Labs 10/16/19 03:51 10/16/19 03:51 Abnormal Lab Results - Last 24 Hours (Table) 10/15/19 10/15/19 10/15/19 Range/Units 16:50 16:50 16:50 RDW 16.4 H (11.5-15.5) % Lymphocytes # 0.9 L (1.0-4.8) k/uL APTT 21.4 L (22.0-30.0) sec Potassium 2.9 L (3.5-5.1) mmol/L Glucose 148 H (74-99) mg/dL Total Protein (6.3-8.2) g/dL Albumin (3.5-5.0) g/dL Stool Occult Blood (Negative) 10/15/19 10/15/19 10/16/19 Range/Units 17:29 21:49 03:51 RDW 16.4 H (11.5-15.5) % Lymphocytes # (1.0-4.8) k/uL APTT (22.0-30.0) sec Potassium 2.9 L (3.5-5.1) mmol/L Glucose (74-99) mg/dL Total Protein (6.3-8.2) g/dL Albumin (3.5-5.0) g/dL Stool Occult Blood Positive H (Negative) 10/16/19 Range/Units 03:51 RDW (11.5-15.5) % Lymphocytes # (1.0-4.8) k/uL APTT (22.0-30.0) sec Potassium 3.4 L (3.5-5.1) mmol/L Glucose (74-99) mg/dL Total Protein 5.5 L (6.3-8.2) g/dL Albumin 3.2 L (3.5-5.0) g/dL Stool Occult Blood (Negative) Diabetes panel 10/15/19 10/15/19 10/16/19 Range/Units 16:50 21:49 03:51 Sodium 139 137 (137-145) mmol/L Potassium 2.9 L 2.9 L 3.4 L (3.5-5.1) mmol/L Chloride 105 106 (98-107) mmol/L Carbon Dioxide 26 25 (22-30) mmol/L BUN 8 7 (7-17) mg/dL Creatinine 0.52 0.53 (0.52-1.04) mg/dL Glucose 148 H 79 (74-99) mg/dL Calcium 9.0 8.7 (8.4-10.2) mg/dL AST 28 21 (14-36) U/L ALT 12 10 (4-34) U/L Alkaline Phosphatase 72 66 (38-126) U/L Total Protein 6.4 5.5 L (6.3-8.2) g/dL Albumin 3.8 3.2 L (3.5-5.0) g/dL Calcium panel 10/15/19 10/16/19 Range/Units 16:50 03:51 Calcium 9.0 8.7 (8.4-10.2) mg/dL Albumin 3.8 3.2 L (3.5-5.0) g/dL Pituitary panel 10/15/19 10/15/19 10/16/19 Range/Units 16:50 21:49 03:51 Sodium 139 137 (137-145) mmol/L Potassium 2.9 L 2.9 L 3.4 L (3.5-5.1) mmol/L Chloride 105 106 (98-107) mmol/L Carbon Dioxide 26 25 (22-30) mmol/L BUN 8 7 (7-17) mg/dL Creatinine 0.52 0.53 (0.52-1.04) mg/dL Glucose 148 H 79 (74-99) mg/dL Calcium 9.0 8.7 (8.4-10.2) mg/dL Adrenal panel 10/15/19 10/15/19 10/16/19 Range/Units 16:50 21:49 03:51 Sodium 139 137 (137-145) mmol/L Potassium 2.9 L 2.9 L 3.4 L (3.5-5.1) mmol/L Chloride 105 106 (98-107) mmol/L Carbon Dioxide 26 25 (22-30) mmol/L BUN 8 7 (7-17) mg/dL Creatinine 0.52 0.53 (0.52-1.04) mg/dL Glucose 148 H 79 (74-99) mg/dL Calcium 9.0 8.7 (8.4-10.2) mg/dL Total Bilirubin 0.3 0.2 (0.2-1.3) mg/dL AST 28 21 (14-36) U/L ALT 12 10 (4-34) U/L Alkaline Phosphatase 72 66 (38-126) U/L Total Protein 6.4 5.5 L (6.3-8.2) g/dL Albumin 3.8 3.2 L (3.5-5.0) g/dL Assessment and Plan Assessment: Chronic internal and external hemorrhoids. Patient's rectal bleeding is minimal. Patient will increase her fiber and water intake. She'll be scheduled for outpatient hemorrhoidectomy.
[2019-10-16 15:19] LABS: Hemoglobin A1C 4.9 % (4.0-6.0)
[2019-10-16] MEDS: CHOLESTYRAMINE (WITH SUGAR) 4 GM PACKET PO SCH (17:54)
[2019-10-16] MEDS: LOPERAMIDE 2 MG CAP PO PRN (17:57)
[2019-10-16 18:08] LABS: T4, Free (Free Thyroxine) 1.12 ng/dL (0.78-2.19)
[2019-10-16] MEDS: traZODone HCL 100 MG TAB PO SCH (20:00)
--- NOTE | 2019-10-16 22:02 | CONS ---
CONSULTATION DATE OF DICTATION: 10/16/2019 REASON FOR CONSULTATION: Rectal bleeding and diarrhea. HISTORY OF PRESENT ILLNESS: The patient is a 79-year-old pleasant white female who was just discharged from the hospital a week ago, at which time she was admitted to the hospital with rectal bleeding and diarrhea. She underwent a colonoscopy by Dr. Bergman that showed internal hemorrhoids, and random biopsies were done from the colon to rule out any colitis. Pathology is still pending. However, the patient came back to the hospital because she started having worsening rectal bleeding. She was bleeding at least 3 or 4 times daily with large amount of bright red blood per rectum. She became extremely dizzy, called EMS and subsequently was brought to the emergency room. Hemoglobin was 12.2 g/dL. She denies any abdominal pain. She was scheduled to see Dr. Myers on an outpatient basis for management of internal hemorrhoids. PAST MEDICAL HISTORY: Her past medical history is significant for atrial fibrillation, GERD, hypothyroidism, hypertension, hyperlipidemia, rheumatoid arthritis. MEDICATIONS: Medications at home include Lasix, Celexa, Xanax, Synthroid, Desyrel, iron, melatonin, Nexium, Percocet. ALLERGIES: FLU VACCINE, SULFA ANTIBIOTICS, AUGMENTIN, CIPRO, FLAGYL, QUINIDINE. PAST SURGICAL HISTORY: Cholecystectomy, tonsillectomy, left and right total hip arthroplasty. FAMILY HISTORY: Mother had emphysema and lung cancer. Father at age 74 with laryngeal problems. Daughter had coronary artery disease. REVIEW OF SYSTEMS: CARDIOPULMONARY: No chest pain or shortness of breath. GENITOURINARY: No dysuria or hematuria. MUSCULOSKELETAL: Unremarkable. SKIN: Unremarkable. ENDOCRINE: Unremarkable. PSYCHIATRIC: Unremarkable. NEUROLOGY: Unremarkable. ENT/VISION: Unremarkable. CONSTITUTIONAL: No recent weight loss. No fever, chills, night sweats. PHYSICAL EXAMINATION: Appears comfortable. No apparent distress. Vital signs are stable. Blood pressure 91/48, pulse rate 54, temperature 97.6. HEENT examination unremarkable. Conjunctivae pink. Sclerae anicteric. Oral cavity no lesions. NECK: No JVD or lymph node enlargement. CHEST: Clear to auscultation. HEART: Regular rate and rhythm. ABDOMEN: Soft. Bowel sounds are positive. No organomegaly. EXTREMITIES: No pedal edema. SKIN: No rashes. NEUROLOGIC: Alert and oriented x3. No focal deficits. LABS: Hemoglobin 12.2, WBC normal. Platelets are normal. Basic metabolic panel within normal limits. Stool occult blood was positive. IMPRESSION: 1. Severe rectal bleeding related to internal hemorrhoids, status post colonoscopy by Dr. Bergman a week ago that showed internal and external hemorrhoids. 2. Chronic diarrhea. Colonoscopy was unremarkable. No evidence of active colitis noted. Biopsies were done to rule out colitis which are still pending. RECOMMENDATIONS: 1. Obtain surgical consultation for possible hemorrhoidectomy either as an inpatient or on an outpatient basis. 2. In the meantime, continue Imodium as needed for the diarrhea. 3. Monitor CBC on a daily basis. 4. Will follow with you closely. Thank you for this consultation. MMODL / IJN: [id number] /
--- NOTE | 2019-10-16 23:08 | PN ---
PROGRESS NOTE This patient is a 79-year-old white female who remains with some GI bleeding. She was scheduled for outpatient hemorrhoidectomy. Hemoglobin is stable, but she had an 8-beat run of ventricular tachycardia tonight. Magnesium, potassium are normal. She had some bradycardia into the 40s, for which Cardiology has been consulted. We are going to get an echo and get Cardiology consulted to see the patient tomorrow. Thyroids are normal at this time. Await recommendations and cardiology recommendations for bradycardia prior to discharge home. MMODL / IJN: [id number] /
[2019-10-17] MEDS: oxyCODONE-APAP 10-325MG 1 EACH TAB PO SCH ×3 (01:50→17:50)
[2019-10-17 05:23] VITALS: RESP 18
[2019-10-17] MEDS: ALPRAZolam 1 MG TAB PO PRN ×2 (06:11→22:29)
[2019-10-17] MEDS: LEVOTHYROXINE 50 MCG TAB PO SCH (06:11)
[2019-10-17 07:12] LABS: Anisocytosis Slight; Basophils % (A) 1 %; Eosinophils # (A) 0.1 k/uL (0-0.7); Eosinophils % (A) 3 %; HCT 36.1 % (34.0-46.0); HGB 11.8 gm/dL (11.4-16.0); Hypochromasia Slight; Lymphocytes # (A) 1.1 k/uL (1.0-4.8); Lymphocytes % (A) 26 %; MCH 29.5 pg (25.0-35.0); MCHC 32.8 g/dL (31.0-37.0); MCV 89.8 fL (80.0-100.0); Mean Platelet Volume 7.3; Monocytes # (A) 0.3 k/uL (0-1.0); Monocytes % (A) 8 %; Neutrophils # (A) 2.6 k/uL (1.3-7.7); Neutrophils % (A) 62 %; Platelet Count 196 k/uL (150-450); RBC 4.02 m/uL (3.80-5.40); RDW 16.3 % (11.5-15.5); WBC 4.2 k/uL (3.8-10.6)
[2019-10-17 07:29] LABS: ALT 10 U/L (4-34); AST 23 U/L (14-36); African American GFR (CKD) >90 (>60 ml/min/1.73 sqM); Albumin 3.1 g/dL (3.5-5.0); Alkaline Phosphatase 63 U/L (38-126); Anion Gap 5 mmol/L; Blood Urea Nitrogen 11 mg/dL (7-17); Calcium 8.5 mg/dL (8.4-10.2); Carbon Dioxide 24 mmol/L (22-30); Chloride 108 mmol/L (98-107); Glucose 94 mg/dL (74-99); Non-African American GFR(CKD) 78 (>60 ml/min/1.73 sqM); Potassium 3.9 mmol/L (3.5-5.1); Sodium 137 mmol/L (137-145); Total Bilirubin 0.3 mg/dL (0.2-1.3); Total Protein 5.4 g/dL (6.3-8.2)
[2019-10-17] MEDS ORDERED: POTASSIUM CHLORIDE ER 20 MEQ TAB.ER PO SCH (08:00)
[2019-10-17] MEDS: PANTOPRAZOLE 40 MG TABLET PO SCH (08:15)
[2019-10-17] MEDS: FUROSEMIDE 40 MG TAB PO SCH (08:15)
[2019-10-17] MEDS: CITALOPRAM HYDROBROMIDE 20 MG TAB PO SCH (08:15)
[2019-10-17] MEDS: FERROUS SULFATE 325 MG TAB PO SCH (08:15)
[2019-10-17] MEDS: ATENOLOL 25 MG TAB PO SCH (08:15)
[2019-10-17] MEDS: CHOLESTYRAMINE (WITH SUGAR) 4 GM PACKET PO SCH ×2 (08:16→17:31)
[2019-10-17] MEDS: LOPERAMIDE 2 MG CAP PO PRN (08:19)
[2019-10-17] MEDS ORDERED: Magnesium Replacement Protocol 1 EACH MISC MISCELLANE PRN (08:34)
[2019-10-17] MEDS: MAGNESIUM SULFATE-D5W PMX 1 GM in DEXTROSE/WATER 1 100ML.BAG IVPB SCH ×2 (09:01→10:06)
--- NOTE | 2019-10-17 11:26 | P.PN ---
Progress Note - Text Progress Note Date: 10/17/19 Patient still has continued minimal bleeding from her hemorrhoids. Patient be scheduled for hemorrhoidectomy tomorrow.
--- NOTE | 2019-10-17 13:06 | P.CRDCN ---
History of Present Illness History of present illness: HISTORY OF PRESENTING ILLNESS This is a pleasant 79-year-old female past medical history significant for valvular heart disease, nonischemic cardiomyopathy, chronic systolic heart failure, COPD, dyslipidemia, hypertension and history of SVT in the past. She used to follow in the office with Dr. Almendarez but has not followed recently. We have been asked to see in consultation for non-sustained ventricular tachycardia. d eating lunch percent at the bedside. She states her heart rates always run on the low side. She complains of feeling frequently fatigued and listless. She does get dizzy sometimes with activity. EKG to be completed. After data reviewed, WBC 4.6, hemoglobin 12.2, platelets 201, sodium 140, potassium 3.7, creatinine 0.67, TSH 4.15, stool for occult blood is positive. Current daily cardiac medications include atenolol 50 mg twice a day and Lasix 40 mg daily. Most recent echocardiogram obtained in 2018 revealed impaired LV systolic function with ejection fraction 40-45%, aortic stenosis with a mean gradient of 22 mmHg, mild MR and mild TR. At that time the patient was being treated for an acute exacerbation of heart failure and cardiac catheterization was recommended and hemodynamically stable, however the patient never came to the office for follow-up. REVIEW OF SYSTEMS At the time of my exam: CONSTITUTIONAL: Denies fever or chills. CARDIOVASCULAR: Denies chest pain, shortness of breath, orthopnea, PND or palpitations. RESPIRATORY: Denies cough. GASTROINTESTINAL: Denies abdominal pain, diarrhea, constipation, nausea or vomiting. MUSCULOSKELETAL: Denies myalgias. NEUROLOGIC: Denies numbness, tingling or weakness. ENDOCRINE: Complains of fatigue. Denies weight change, polydipsia or polyurina. GENITOURINARY: Denies burning, hematuria or urgency with micturation. HEMATOLOGIC: Denies history of anemia or bleeding. PHYSICAL EXAMINATION Blood pressure 105/60 heart rate 55 afebrile and maintaining oxygen saturation on room air. CONSTITUTIONAL: No apparent distress. HEENT: Head is normocephalic. Pupils are equal, round. Sclerae anicteric. Mucous membranes of the mouth are moist. No JVD. No carotid bruit. CHEST EXAMINATION: Lungs are clear to auscultation. No chest wall tenderness is noted on palpation or with deep breathing. HEART EXAMINATION: Regular rate and rhythm. S1, S2 heard. Systolic ejection murmur at the base, no gallops or rub. ABDOMEN: Soft, nontender. Positive bowel sounds. EXTREMITIES: 2+ peripheral pulses, no lower extremity edema and no calf tenderness. NEUROLOGIC EXAMINATION: Patient is awake, alert and oriented x3. ASSESSMENT Non-sustained ventricular tachycardia in the setting of significant hypokalemia Hypokalemia Hemorrhoids Hypertension Dyslipidemia COPD PLAN Potassium has been corrected, likely the cause for the non-sustained VT. Continue current medical regimen. No further cardiac work-up needed at this time. Thank you kindly for this consultation. Nurse Practitioner note has been reviewed, I agree with a documented findings and plan of care. Patient was seen and examined. Past Medical History Past Medical History: Atrial Fibrillation, Atrial Flutter, GERD/Reflux, Hypertension, Mitral Valve Prolapse (MVP), Rheumatoid Arthritis (RA) Additional Past Medical History / Comment(s): OTHER HX: 03/06/14, 03/30/14, 07/03/14, 07/29/14 with CDIFF colitis, MVP, urinary incontinence, PROLAPSED MITRAL VALVE- NO PROBLEMS FOR 30 YRS.anemia -requiring blood transfusion History of Any Multi-Drug Resistant Organisms: C-DIFF Date of last positivie culture/infection: 2015 MDRO Source:: Stool Past Surgical History: Adenoidectomy, Cholecystectomy, Hysterectomy, Joint Replacement, Orthopedic Surgery, Tonsillectomy Additional Past Surgical History / Comment(s): 02/18/16 total R hip arthroplasty . Other surgical HX: BILATERAL KNEE REPLACEMENT (2003-RIGHT & 2005 - LEFT); LOWER LUMBAR LAMINECTOMYL4-L5 (2007); LEFT HIP REPLACEMENT (2012); RIGHT SHOULDER REPLACEMENT (2008), left total knee arthroplasty revision. Bilateral cataracts with lens implants. FECAL TRASPLANT TX FOR C-DIFF three t imes.cataracts-lens implants Past Anesthesia/Blood Transfusion Reactions: No Reported Reaction Additional Past Anesthesia/Blood Transfusion Reaction / Comment(s): blood transfusion in past no reactions Past Psychological History: Anxiety, Depression Additional Psychological History / Comment(s): Pt resides in her own home. Her nephew who is very ill stays with pt. She uses a walker to ambulate. She has a nebulizer, She is able to drive. Smoking Status: Current every day smoker Past Alcohol Use History: None Reported Additional Past Alcohol Use History / Comment(s): Patient has smoked since 1953- 5 cig per day.No alcohol use or abuse. No street drug use no marijuana use. Past Drug Use History: None Reported - Past Family History Mother Family Medical History: Cancer Additional Family Medical History / Comment(s): Mother at age 60 with history of emphysema and lung cancer. Father Family Medical History: CVA/TIA Additional Family Medical History / Comment(s): Father at age 74 with problems with his larynx. Sister(s) Family Medical History: Unable to Obtain Daughter(s) Family Medical History: COPD, Myocardial Infarction (MD) Additional Family Medical History / Comment(s): Mother at age 60 yrs of emphysema/lung CA Son(s) Family Medical History: Myocardial Infarction (MD) Additional Family Medical History / Comment(s): Father at age 74yrs with "CVA of his larynx" Medications and Allergies Home Medications Medication Instructions Recorded Confirmed Type Citalopram Hydrobromide [CeleXA] 40 mg PO DAILY 05/12/18 10/15/19 History Furosemide [Lasix] 40 mg PO DAILY 05/12/18 10/15/19 History ALPRAZolam [Xanax] 2 mg PO Q8H PRN 06/06/18 10/15/19 History Levothyroxine Sodium [Synthroid] 50 mcg PO DAILY 06/06/18 10/15/19 History traZODone HCL [Desyrel] 200 mg PO HS 11/09/18 10/15/19 History Ferrous Sulfate [Iron (65 MG 325 mg PO DAILY 06/29/19 10/15/19 History Elemental)] oxyCODONE-APAP 10-325MG [Percocet 1 tab PO Q8HR 06/29/19 10/15/19 History 10-325 mg] Melatonin 7.5mg 7.5 mg PO HS 10/08/19 10/15/19 History Atenolol [Tenormin] 25 mg PO DAILY #30 tab 10/12/19 10/15/19 Rx Esomeprazole Magnesium [NexIUM 20 mg PO DAILY 10/15/19 10/15/19 History 24Hr] Allergies Allergy/AdvReac Type Severity Reaction Status Date / Time adhesive tape Allergy Rash/Hives Verified 10/15/19 18:05 Influenza Virus Vaccines Allergy "MAKES HER Verified 10/15/19 18:05 FEEL SICK" Sulfa (Sulfonamide Allergy Rash/Hives Verified 10/15/19 18:05 Antibiotics) amoxicillin trihydrate AdvReac Diarrhea Verified 10/15/19 18:05 [From Augmentin] ciprofloxacin [From Cipro] AdvReac Unknown Verified 10/15/19 18:05 metronidazole [From Flagyl] AdvReac Unknown Verified 10/15/19 18:05 potassium clavulanate AdvReac Diarrhea Verified 10/15/19 18:05 [From Augmentin] quinidine AdvReac BLOOD CLOTS Verified 10/15/19 18:05 Physical Exam Vitals: Vital Signs Temp Pulse Resp BP Pulse Ox 10/17/19 05:00 98.1 F 55 L 18 105/60 95 10/16/19 20:18 97.3 F L 59 L 20 94/55 96 10/16/19 11:30 97.6 F 54 L 14 91/48 97 Intake and Output 10/16/19 10/17/19 10/17/19 22:59 06:59 14:59 Other: Voiding Method Toilet Toilet Diaper # Voids 2 2 Results 10/17/19 06:24 10/17/19 06:24 Cardiac Enzymes 10/17/19 Range/Units 06:24 AST 23 (14-36) U/L CBC 10/17/19 Range/Units 06:24 WBC 4.2 (3.8-10.6) k/uL RBC 4.02 (3.80-5.40) m/uL Hgb 11.8 (11.4-16.0) gm/dL Hct 36.1 (34.0-46.0) % Plt Count 196 (150-450) k/uL Comprehensive Metabolic Panel 10/16/19 10/17/19 Range/Units 13:13 06:24 Sodium 137 (137-145) mmol/L Potassium 4.1 3.9 (3.5-5.1) mmol/L Chloride 108 H (98-107) mmol/L Carbon Dioxide 24 (22-30) mmol/L BUN 11 (7-17) mg/dL Creatinine 0.74 (0.52-1.04) mg/dL Glucose 94 (74-99) mg/dL Calcium 8.5 (8.4-10.2) mg/dL AST 23 (14-36) U/L ALT 10 (4-34) U/L Alkaline Phosphatase 63 (38-126) U/L Total Protein 5.4 L (6.3-8.2) g/dL Albumin 3.1 L (3.5-5.0) g/dL Current Medications Generic Name Dose Route Start Last Admin Trade Name Freq PRN Reason Stop Dose Admin Alprazolam 2 mg 10/15/19 17:49 10/17/19 06:11 Xanax PO 2 mg Q8H PRN Administration Anxiety Atenolol 25 mg 10/16/19 09:00 10/17/19 08:15 Tenormin PO 25 mg DAILY KACY Administration Cholestyramine Resin 4 gm 10/16/19 18:00 10/17/19 08:16 Questran PO Not Given BID@1000,1800 KACY Citalopram Hydrobromide 40 mg 10/16/19 09:00 10/17/19 08:15 Celexa PO 40 mg DAILY KACY Administration Ferrous Sulfate 325 mg 10/16/19 09:00 10/17/19 08:15 Feosol PO 325 mg DAILY KACY Administration Furosemide 40 mg 10/16/19 09:00 10/17/19 08:15 Lasix PO 40 mg DAILY KACY Administration Magnesium Sulfate/Dextrose 1 100 mls @ 100 mls/hr 10/17/19 09:00 10/17/19 10:06 gm/ IV Solution IVPB 10/17/19 10:59 100 mls/hr Q1H KACY Administration Levothyroxine Sodium 50 mcg 10/16/19 06:30 10/17/19 06:11 Synthroid PO 50 mcg DAILY@0630 KACY Administration Loperamide HCl 2 mg 10/16/19 17:30 10/17/19 08:19 Imodium PO 2 mg QID PRN Administration Diarrhea Miscellaneous Information 1 each 10/15/19 23:24 Potassium Per Protocol MISCELLANE DAILY PRN Per Protocol Protocol Miscellaneous Information 1 each 10/16/19 06:05 Potassium Per Protocol MISCELLANE DAILY PRN Per Protocol Protocol Miscellaneous Information 1 each 10/17/19 08:34 Magnesium Per Protocol MISCELLANE DAILY PRN Per Protocol Protocol Naloxone HCl 0.2 mg 10/15/19 17:47 Narcan IV Q2M PRN Opioid Reversal Oxycodone/Acetaminophen 1 each 10/16/19 02:00 10/17/19 09:03 Percocet 10-325 PO 1 each Q8H KACY Administration Pantoprazole Sodium 40 mg 10/16/19 07:30 10/17/19 08:15 Protonix PO 40 mg [id number] KACY Administration Trazodone HCl 200 mg 10/15/19 21:00 10/16/19 20:00 Desyrel PO 200 mg HS KACY Administration Intake and Output 10/16/19 10/17/19 10/17/19 22:59 06:59 14:59 Other: Voiding Method Toilet Toilet Diaper # Voids 2 2 10/17/19 06:24 10/17/19 06:24
--- NOTE | 2019-10-17 16:14 | PN ---
PROGRESS NOTE DATE OF DICTATION: 10/17/2019 Patient is a 79-year-old pleasant white female admitted to the hospital with severe rectal bleeding. She had a colonoscopy by Dr. Bergman a week ago that showed internal and external hemorrhoids. The patient has been having bleeding 3-[address] Myers was consulted and she is scheduled for hemorrhoidectomy tomorrow. She denies any new symptoms today. She had 2 bloody bowel movements this morning. PHYSICAL EXAMINATION: Appears comfortable. No apparent distress. Vital signs are stable. Blood pressure is 110/61, temperature 97.7, and pulse rate 58. HEENT examination unremarkable. Conjunctivae pink. Sclerae anicteric. Oral cavity no lesions. NECK: No JVD or lymph node enlargement. CHEST: Clear to auscultation. HEART: Regular rate and rhythm. ABDOMEN: Soft. Bowel sounds are positive. No organomegaly. EXTREMITIES: No pedal edema. NEUROLOGIC: Alert and oriented x3. No focal deficits. LABS: Hemoglobin 11.8, WBC 4.2. IMPRESSION: Rectal bleeding secondary to internal hemorrhoids, status post colonoscopy a week ago by Dr. Bergman. RECOMMENDATIONS: 1. Agree with surgical hemorrhoidectomy. 2. Monitor CBC daily. 3. Continue Imodium as needed for the chronic diarrhea. 4. Will follow with you closely. Thank you for this consultation. MMODL / IJN: [id number] /
[2019-10-17] MEDS: traZODone HCL 100 MG TAB PO SCH (21:36)
--- NOTE | 2019-10-17 23:26 | PN ---
PROGRESS NOTE GI doctor saw the patient today. Severe rectal bleeding. Colonoscopy showed internal and external hemorrhoids. She apparently is going to have a hemorrhoidectomy tomorrow. Blood pressure 110/61, temperature 97.7, pulse 55. Cardiology cleared her for surgery. Lungs are clear. HEART: S1, S2. Abdomen is soft. ASSESSMENT: 1. Rectal bleeding secondary to internal hemorrhoids, status post colonoscopy. 2. Bradycardia, resolving. Monitor CBC. Imodium as needed for chronic diarrhea. Follow up on current treatment. Hemorrhoidectomy in the morning. MMODL / IJN: [id number] /
[2019-10-18] MEDS: oxyCODONE-APAP 10-325MG 1 EACH TAB PO SCH ×3 (02:13→15:55)
[2019-10-18] MEDS: LEVOTHYROXINE 50 MCG TAB PO SCH (06:32)
[2019-10-18] MEDS: ATENOLOL 25 MG TAB PO SCH (07:34)
[2019-10-18] MEDS ORDERED: NA PHOS,M-B/NA PHOS,DI-BA 133 ML ENEMA RECTAL ONE (09:15)
[2019-10-18] MEDS ORDERED: NA PHOS,M-B/NA PHOS,DI-BA 133 ML ENEMA RECTAL STA (12:00)
[2019-10-18] MEDS ORDERED: HEPARIN SODIUM,PORCINE 5,000 UNIT/ML 1 ML VIAL ONE (12:55)
[2019-10-18] MEDS: CHOLESTYRAMINE (WITH SUGAR) 4 GM PACKET PO SCH ×2 (12:55→15:52)
[2019-10-18] MEDS ORDERED: IV FLUID CONTINUATION 1,000 ML IV ONE (12:59)
[2019-10-18] MEDS ORDERED: ONDANSETRON 4 MG/2 ML VIAL IVP ONE (13:04)
[2019-10-18] MEDS ORDERED: diphenhydrAMINE 50 MG/ML 1 ML VIAL ONE (13:28)
[2019-10-18] MEDS ORDERED: fentaNYL (PF) 50 MCG/ML 2 ML AMP ONE (13:28)
[2019-10-18] MEDS ORDERED: MIDAZOLAM 2 MG/2 ML VIAL ONE (13:28)
[2019-10-18] MEDS ORDERED: PROPOFOL 10 MG/ML 20 ML VIAL IV ONE (13:28)
[2019-10-18] MEDS ORDERED: SODIUM CHLORIDE 0.9% 50 ML with ceFAZolin 1,000 MG IV ONE ×2 (13:50)
[2019-10-18] MEDS ORDERED: BUPIVACAIN-EPI 0.25%-1:200,000 30 ML VIAL SQ ONE (13:56)
--- NOTE | 2019-10-18 14:08 | P.OP ---
Date of Procedure: 10/18/19 Preoperative Diagnosis: Internal and external hemorrhoids Postoperative Diagnosis: Internal and external hemorrhoids Procedure(s) Performed: Hemorrhoidectomy Anesthesia: MAC Surgeon: Al Myers Estimated Blood Loss (ml): 5 Pathology: other (Hemorrhoids) Condition: stable Disposition: PACU Description of Procedure: The patient's placed on the operative table in prone position. She received IV sedation. Her anus was prepped and draped usual fashion. Patient had hemorrhoi ds located in the left lateral position and the right posterior position the anal retractors placed anus. The left lateral hemorrhoidectomy was performed first. Allis clamps is grasped the hemorrhoid column and using Harmonic scissors the hemorrhoid was excised. The Bovie hemostasis. Next the right posterior hemorrhoid column was grasped with Allis clamp and removed in identical fashion. There is no bleeding seen. Patient top she will was sent to recovery in stable condition.
[2019-10-18] MEDS: CITALOPRAM HYDROBROMIDE 20 MG TAB PO SCH (15:51)
[2019-10-18] MEDS: FUROSEMIDE 40 MG TAB PO SCH (15:51)
[2019-10-18] MEDS: FERROUS SULFATE 325 MG TAB PO SCH (15:51)
[2019-10-18] MEDS: PANTOPRAZOLE 40 MG TABLET PO SCH (15:55)
[2019-10-18] MEDS: traZODone HCL 100 MG TAB PO SCH (21:00)
--- NOTE | 2019-10-19 00:14 | PN ---
PROGRESS NOTE A 79-year-old white female with internal and external hemorrhoids for surgery. Hemorrhoidectomy was performed today. The patient is stable postop. CARDIOVASCULAR: S1, S2. LUNGS: Clear. GI: Soft. HEMATOLOGY: Negative Homans. Hemoglobin is 11.8 down from 12.2. Will check CBC and chem panel in the morning. Possible discharge if patient is doing better tomorrow. MMODL / IJN: [id number] /
[2019-10-19] MEDS: oxyCODONE-APAP 10-325MG 1 EACH TAB PO SCH ×2 (02:00→10:12)
[2019-10-19] MEDS: MAGNESIUM SULFATE-D5W PMX 1 GM in DEXTROSE/WATER 1 100ML.BAG IVPB SCH (05:11)
[2019-10-19 05:36] LABS: ALT 11 U/L (4-34); AST 26 U/L (14-36); African American GFR (CKD) >90 (>60 ml/min/1.73 sqM); Albumin 3.3 g/dL (3.5-5.0); Alkaline Phosphatase 68 U/L (38-126); Anion Gap 8 mmol/L; Blood Urea Nitrogen 14 mg/dL (7-17); Calcium 8.8 mg/dL (8.4-10.2); Carbon Dioxide 21 mmol/L (22-30); Chloride 107 mmol/L (98-107); Glucose 105 mg/dL (74-99); Non-African American GFR(CKD) 81 (>60 ml/min/1.73 sqM); Potassium 4.2 mmol/L (3.5-5.1); Sodium 136 mmol/L (137-145); Total Bilirubin 0.2 mg/dL (0.2-1.3); Total Protein 5.7 g/dL (6.3-8.2)
[2019-10-19] MEDS: LEVOTHYROXINE 50 MCG TAB PO SCH (05:38)
[2019-10-19 07:35] LABS: Anisocytosis Slight; Basophils % (A) 1 %; Eosinophils # (A) 0.1 k/uL (0-0.7); Eosinophils % (A) 3 %; HCT 35.7 % (34.0-46.0); HGB 11.8 gm/dL (11.4-16.0); Hypochromasia Slight; Lymphocytes % (A) 21 %; MCH 29.5 pg (25.0-35.0); MCHC 32.9 g/dL (31.0-37.0); MCV 89.6 fL (80.0-100.0); Mean Platelet Volume 7.4; Monocytes # (A) 0.3 k/uL (0-1.0); Monocytes % (A) 6 %; Neutrophils # (A) 3.2 k/uL (1.3-7.7); Neutrophils % (A) 68 %; Platelet Count 185 k/uL (150-450); RBC 3.99 m/uL (3.80-5.40); RDW 16.1 % (11.5-15.5); WBC 4.6 k/uL (3.8-10.6)
[2019-10-19 08:05] LABS: ALT 10 U/L (4-34); AST 23 U/L (14-36); African American GFR (CKD) >90 (>60 ml/min/1.73 sqM); Albumin 3.1 g/dL (3.5-5.0); Alkaline Phosphatase 69 U/L (38-126); Anion Gap 6 mmol/L; Blood Urea Nitrogen 12 mg/dL (7-17); Calcium 8.4 mg/dL (8.4-10.2); Carbon Dioxide 27 mmol/L (22-30); Chloride 105 mmol/L (98-107); Glucose 85 mg/dL (74-99); Magnesium 1.7 mg/dL (1.6-2.3); Non-African American GFR(CKD) 83 (>60 ml/min/1.73 sqM); Potassium 4.6 mmol/L (3.5-5.1); Sodium 138 mmol/L (137-145); Total Bilirubin 0.3 mg/dL (0.2-1.3); Total Protein 5.4 g/dL (6.3-8.2)
[2019-10-19] MEDS: FUROSEMIDE 40 MG TAB PO SCH (08:43)
[2019-10-19] MEDS: CITALOPRAM HYDROBROMIDE 20 MG TAB PO SCH (08:43)
[2019-10-19] MEDS: FERROUS SULFATE 325 MG TAB PO SCH (08:43)
[2019-10-19] MEDS: CHOLESTYRAMINE (WITH SUGAR) 4 GM PACKET PO SCH ×2 (08:44→08:55)
[2019-10-19] MEDS: ATENOLOL 25 MG TAB PO SCH (08:44)
[2019-10-19] MEDS: PANTOPRAZOLE 40 MG TABLET PO SCH (08:44)
[2019-10-19] MEDS: LOPERAMIDE 2 MG CAP PO PRN (08:50)
--- NOTE | 2019-10-19 16:46 | P.DS ---
Providers Date of admission: 10/15/19 17:47 Expected date of discharge: 10/19/19 Attending physician: Angel Stewart Consults: 10/16/19 11:34 Consult Physician Routine Consulting Provider: Al Myers Consult Reason/Comments: bleeding hemorrhoids Do you want consulting provider notified?: Yes 10/16/19 17:20 Consult Physician Urgent Consulting Provider: Nuzhat Bryant Consult Reason/Comments: remote telemetry-run of 9 & HR in the 40's today Do you want consulting provider notified?: Yes [facility] Hospital Course: Final Diagnoses: Acute lower GI bleed, secondary to Internal and external hemorrhoids, recent colonoscopy, Status post hemorrhoidectomy Hypokalemia Nonsustained V. tach secondary to the above Bradycardia, resolved Chronic diarrhea COPD, stable Hypertension Dyslipidemia Hospital course: This a 79-year-old female with recent colonoscopy, admitted with significant rectal bleeding secondary to internal and external hemorrhoids and multiple other medical issues. Evaluated by cardiology, GI and surgery. Underwent hemorrhoidectomy. Tolerated procedure well. Patient will be discharged home in a stable condition with guarded prognosis, once Cleared by all consults for discharge. The impression and plan of care has been dictated as directed. : I performed a history and examination of this patient, discussed the same with the dictator. I agree with the dictator's note ,documented as a scribe. Any additional findings or plans will be noted. Patient Condition at Discharge: Stable Plan - Discharge Summary Discharge Rx Participant: No New Discharge Prescriptions: New Loperamide [Imodium] 2 mg PO QID PRN #0 cap PRN Reason: Diarrhea Continue Citalopram Hydrobromide [CeleXA] 40 mg PO DAILY Furosemide [Lasix] 40 mg PO DAILY Levothyroxine Sodium [Synthroid] 50 mcg PO DAILY ALPRAZolam [Xanax] 2 mg PO Q8H PRN PRN Reason: Anxiety traZODone HCL [Desyrel] 200 mg PO HS Ferrous Sulfate [Iron (65 MG Elemental)] 325 mg PO DAILY oxyCODONE-APAP 10-325MG [Percocet 10-325 mg] 1 tab PO Q8HR Melatonin 7.5mg 7.5 mg PO HS Atenolol [Tenormin] 25 mg PO DAILY #30 tab Esomeprazole Magnesium [NexIUM 24Hr] 20 mg PO DAILY Discharge Medication List Citalopram Hydrobromide [CeleXA] 40 mg PO DAILY 05/12/18 [History] Furosemide [Lasix] 40 mg PO DAILY 05/12/18 [History] ALPRAZolam [Xanax] 2 mg PO Q8H PRN 06/06/18 [History] Levothyroxine Sodium [Synthroid] 50 mcg PO DAILY 06/06/18 [History] traZODone HCL [Desyrel] 200 mg PO HS 11/09/18 [History] Ferrous Sulfate [Iron (65 MG Elemental)] 325 mg PO DAILY 06/29/19 [History] oxyCODONE-APAP 10-325MG [Percocet 10-325 mg] 1 tab PO Q8HR 06/29/19 [History] Melatonin 7.5mg 7.5 mg PO HS 10/08/19 [History] Atenolol [Tenormin] 25 mg PO DAILY #30 tab 10/12/19 [Rx] Esomeprazole Magnesium [NexIUM 24Hr] 20 mg PO DAILY 10/15/19 [History] Loperamide [Imodium] 2 mg PO QID PRN #0 cap 10/19/19 [Rx] Follow up Appointment(s)/Referral(s): Angel Stewart MD [Primary Care Provider] - 10/27/19 9:00 am Al Myers MD [STAFF PHYSICIAN] - 10/26/19 2:40 pm Patient Instructions/Handouts: Hemorrhoids (DC) Activity/Diet/Wound Care/Special Instructions: .. Patient declining [facility] pt activity limited until seen by Dr. rogers as tolerated Discharge Disposition: HOME SELF-CARE
[2019-10-20 07:36] VITALS: BP 100/50; PULSE 55; TEMP 98.1
== END 2019-10-19 15:08 | disposition home or self-care (01) ==
LOC: EC 15:51 → 5NMEDONC 17:47
PROVIDERS: ADMIT Family Medicine; ATTEND Family Medicine
DX: K64.4 Residual hemorrhoidal skin tags (principal); K64.8 Other hemorrhoids; E03.9 Hypothyroidism, unspecified; E78.5 Hyperlipidemia, unspecified; E83.42 Hypomagnesemia; E87.6 Hypokalemia; F17.200 Nicotine dependence, unspecified, uncomplicated; I08.0 Rheumatic disorders of both mitral and aortic valves; I11.0 Hypertensive heart disease with heart failure; I42.8 Other cardiomyopathies; I47.2 Ventricular tachycardia; I48.91 Unspecified atrial fibrillation; I50.22 Chronic systolic (congestive) heart failure; J44.9 Chronic obstructive pulmonary disease, unspecified; K52.9 Noninfective gastroenteritis and colitis, unspecified; K64.5 Perianal venous thrombosis; M06.9 Rheumatoid arthritis, unspecified; Z79.890 Hormone replacement therapy; Z79.899 Other long term (current) drug therapy; Z11.59 Encounter for screening for other viral diseases; Z80.1 Family history of malignant neoplasm of trachea, bronchus and lung; Z82.3 Family history of stroke; Z82.49 Family history of ischemic heart disease and other diseases of the circulatory system; Z82.5 Family history of asthma and other chronic lower respiratory diseases; Z86.19 Personal history of other infectious and parasitic diseases; Z90.710 Acquired absence of both cervix and uterus; Z98.42 Cataract extraction status, left eye; Z98.41 Cataract extraction status, right eye; Z96.1 Presence of intraocular lens; Z96.611 Presence of right artificial shoulder joint; Z96.643 Presence of artificial hip joint, bilateral; Z96.653 Presence of artificial knee joint, bilateral; Z88.1 Allergy status to other antibiotic agents; Z88.2 Allergy status to sulfonamides; Z88.8 Allergy status to other drugs, medicaments and biological substances
CPT/HCPCS: 96366; 96367; 96365; 99285; 36415; 93005; 86900; 86901; 84439; 88305; 86902; 80053 ×5; 83605; 83735 ×5; 84132 ×2; 84443; 84484; 85025 ×4; 85610; 85730; 86850; 86870; 86880; 82272; 88342; 88341; 83036; 46260; G0378 ×5; U0003; J2250; J1200; J1644; J3480; J2405; J0690; J3010; J3475 ×2; J2704

== ENCOUNTER → 2019-11-10 | Outpatient (CLI) | payer MEDICARE ==
--- NOTE | 2019-11-11 14:26 | PE ---
EXAMINATION TYPE: PET CT fusion skull to thigh DATE OF EXAM: 11/10/2019 COMPARISON: CT abdomen pelvis 12/16/2018 Prior PET/CT: None HISTORY: Melanoma TECHNIQUE: Following the intravenous administration of 12.81 mCi of F-18 FDG, whole body images are performed from the skull vertex to the bilateral feet. Images are reviewed on the computer in the cor onal, axial, and sagittal planes. Reconstructed rotating images are created on independent workstati on and reviewed on the computer. A localization and attenuation correction CT is performed in conju nction with the PET scan. DLP: 610.26 mGycm SCAN: Initial Blood glucose: 113 mg/dL Average Mediastinum SUV: 1.68 Average Liver SUV: 2.63 FINDINGS: Brain: Radiotracer distribution appears normal through the calvarium. MRI is more sensitive for melan mina metastasis. NECK: No suspicious uptake THORAX: No suspicious uptake ABDOMEN: No suspicious uptake PELVIS: Beam hardening artifact from bilateral hip prostheses as well as intense uptake within the ur inary bladder limits evaluation of the pelvis. However, there is some asymmetric radiotracer within t he left posterior lateral region adjacent to the urinary bladder. This has an SUV value of 6.05. This may be the patient's reported rectal melanoma Lower extremities: There is increased radiotracer accumulation along the medial aspect of the right f oot with an SUV value of 2.5. Small soft tissue metastatic lesion should be considered. This appears to be lateral to the medial cuneiform. There is soft tissue uptake near the sesamoid of the first met atarsophalangeal joint space. This has an SUV value of 2.35. Injury and. Metastasis should be conside red. There is increased uptake in the suprapatellar joint space of the left knee. This could be inflammato ry in nature with an SUV value 1.9. OSSEOUS STRUCTURES: Findings within the right foot are discussed above. No suspicious uptake within o sseous structures is otherwise identified. LOCALIZATION CT: There is a hiatal hernia or organomegaly hernia with displacement of the stomach int o the posterior thorax. COMPARISON: Significant interval change is not identified. IMPRESSION: 1. Patient's primary rectal melanoma not clearly identified. There is some radiotracer adjacent to th e urinary bladder in the region of the rectosigmoid junction which potentially could be the patient's primary. 2. Uptake within the soft tissues of the right foot adjacent to the medial cuneiform and at the first metatarsophalangeal joint sesamoid right foot. Metastasis and injury could be considered.
== END | disposition home or self-care (01) ==
LOC: RADPETMAIN 12:55
PROVIDERS: ATTEND Family Medicine
DX: C43.59 Malignant melanoma of other part of trunk (principal); M79.89 Other specified soft tissue disorders
CPT/HCPCS: 78815; A9552

== ENCOUNTER 2020-01-15 18:07 | Observation (INO) | payer MEDICARE ==
[2020-01-15] MEDS ORDERED: MORPHINE SULFATE 4 MG/ML SYRINGE IV STA (18:22)
[2020-01-15] MEDS ORDERED: SODIUM CHLORIDE 0.9% 500 ML 500 ML IV STA (18:22)
[2020-01-15] MEDS ORDERED: SODIUM CHLORIDE 0.9% 1,000 ML IV STA (18:22)
[2020-01-15 18:59] LABS: Basophils % (A) 1 %; Eosinophils # (A) 0.1 k/uL (0-0.7); Eosinophils % (A) 2 %; HCT 44.1 % (34.0-46.0); HGB 14.8 gm/dL (11.4-16.0); Lymphocytes # (A) 1.2 k/uL (1.0-4.8); Lymphocytes % (A) 19 %; MCH 30.1 pg (25.0-35.0); MCHC 33.5 g/dL (31.0-37.0); MCV 89.7 fL (80.0-100.0); Monocytes # (A) 0.4 k/uL (0-1.0); Monocytes % (A) 7 %; Neutrophils # (A) 4.5 k/uL (1.3-7.7); Neutrophils % (A) 71 %; Platelet Count 248 k/uL (150-450); RBC 4.91 m/uL (3.80-5.40); RDW 13.4 % (11.5-15.5); WBC 6.3 k/uL (3.8-10.6)
[2020-01-15 19:07] LABS: ALT 11 U/L (4-34); AST 29 U/L (14-36); African American GFR (CKD) >90 (>60 ml/min/1.73 sqM); Albumin 4.3 g/dL (3.5-5.0); Alkaline Phosphatase 105 U/L (38-126); Amylase 45 U/L (30-110); Anion Gap 9 mmol/L; Blood Urea Nitrogen 9 mg/dL (7-17); Carbon Dioxide 27 mmol/L (22-30); Chloride 104 mmol/L (98-107); Glucose 98 mg/dL (74-99); Non-African American GFR(CKD) 85 (>60 ml/min/1.73 sqM); Potassium 2.9 mmol/L (3.5-5.1); Sodium 140 mmol/L (137-145); Total Bilirubin 0.5 mg/dL (0.2-1.3); Total Protein 7.1 g/dL (6.3-8.2)
--- NOTE | 2020-01-15 19:09 | ED ---
General Adult HPI - General Chief complaint: Abdominal Pain Stated complaint: Abd Pain Time Seen by Provider: 01/15/20 18:11 Source: patient, EMS, RN notes reviewed, old records reviewed Mode of arrival: EMS Limitations: no limitations - History of Present Illness Initial comments: 79-year-old female presenting for evaluation of diarrhea, lower abdominal pain. Patient has history of recurrent C. diff. She states she's had diarrhea which is explosive and has resulted in incontinence on several occasions. She also complains of bilateral lower abdominal pain. She had recent history of rectal cancer status post resection. She was sent in from her primary care physician with concern for dehydration given the degree of diarrhea that the patient has had. No vomiting. - Related Data Home Medications Medication Instructions Recorded Confirmed Citalopram Hydrobromide [CeleXA] 40 mg PO DAILY 05/12/18 10/15/19 Furosemide [Lasix] 40 mg PO DAILY 05/12/18 10/15/19 ALPRAZolam [Xanax] 2 mg PO Q8H PRN 06/06/18 10/15/19 Levothyroxine Sodium [Synthroid] 50 mcg PO DAILY 06/06/18 10/15/19 traZODone HCL [Desyrel] 200 mg PO HS 11/09/18 10/15/19 Ferrous Sulfate [Iron (65 MG 325 mg PO DAILY 06/29/19 10/15/19 Elemental)] oxyCODONE-APAP 10-325MG [Percocet 1 tab PO Q8HR 06/29/19 10/15/19 10-325 mg] Melatonin 7.5mg 7.5 mg PO HS 10/08/19 10/15/19 Esomeprazole Magnesium [NexIUM 20 mg PO DAILY 10/15/19 10/15/19 24Hr] Previous Rx's Medication Instructions Recorded atenoloL [Tenormin] 25 mg PO DAILY #30 tab 10/12/19 Loperamide [Imodium] 2 mg PO QID PRN #0 cap 10/19/19 Allergies Allergy/AdvReac Type Severity Reaction Status Date / Time adhesive tape Allergy Rash/Hives Verified 10/15/19 18:05 Influenza Virus Vaccines Allergy "MAKES HER Verified 10/15/19 18:05 FEEL SICK" Sulfa (Sulfonamide Allergy Rash/Hives Verified 10/15/19 18:05 Antibiotics) amoxicillin trihydrate AdvReac Diarrhea Verified 10/15/19 18:05 [From Augmentin] ciprofloxacin [From Cipro] AdvReac Unknown Verified 10/15/19 18:05 metronidazole [From Flagyl] AdvReac Unknown Verified 10/15/19 18:05 potassium clavulanate AdvReac Diarrhea Verified 10/15/19 18:05 [From Augmentin] quinidine AdvReac BLOOD CLOTS Verified 10/15/19 18:05 Review of Systems ROS Statement: Those systems with pertinent positive or pertinent negative responses have been documented in the HPI. ROS Other: All systems not noted in ROS Statement are negative. Past Medical History Past Medical History: Atrial Fibrillation, Atrial Flutter, GERD/Reflux, Hyperlipidemia, Hypertension, Mitral Valve Prolapse (MVP), Rheumatoid Arthritis (RA), Thyroid Disorder Additional Past Medical History / Comment(s): OTHER HX: 03/06/14, 03/30/14, 07/03/14, 07/29/14 with CDIFF colitis, HYPOTHYROID, MVP, urinary incontinence, PROLAPSED MITRAL VALVE- NO PROBLEMS FOR 30 YRS.anemia -requiring blood transfusion History of Any Multi-Drug Resistant Organisms: C-DIFF Date of last positivie culture/infection: 2015 MDRO Source:: Stool Past Surgical History: Adenoidectomy, Cholecystectomy, Hysterectomy, Joint Replacement, Orthopedic Surgery, Tonsillectomy Additional Past Surgical History / Comment(s): 02/18/16 total R hip arthroplasty. Other surgical HX: BILATERAL KNEE REPLACEMENT (2003-RIGHT & 2005 - LEFT); LOWER LUMBAR LAMINECTOMYL4-L5 (2007); LEFT HIP REPLACEMENT (2012); RIGHT SHOULDER REPLACEMENT (2008), left total knee arthroplasty revision. Bilateral cataracts with lens implants. FECAL TRASPLANT TX FOR C-DIFF three times.cataracts-lens implants Past Anesthesia/Blood Transfusion Reactions: No Reported Reaction Additional Past Anesthesia/Blood Transfusion Reaction / Comment(s): blood transfusion in past no reactions Past Psychological History: Anxiety, Depression Smoking Status: Current every day smoker Past Alcohol Use History: None Reported Past Drug Use History: None Reported - Past Family History Mother Family Medical History: Cancer Additional Family Medical History / Comment(s): Mother at age 60 with history of emphysema and lung cancer. Father Family Medical History: CVA/TIA Additional Family Medical History / Comment(s): Father at age 74 with problems with his larynx. Sister(s) Family Medical History: Unable to Obtain Daughter(s) Family Medical History: COPD, Myocardial Infarction (SD) Additional Family Medical History / Comment(s): Mother at age 60 yrs of emphysema/lung CA Son(s) Family Medical History: Myocardial Infarction (SD) Additional Family Medical History / Comment(s): Father at age 74yrs with "CVA of his larynx" General Exam Limitations: no limitations General appearance: alert, in no apparent distress Head exam: Present: atraumatic, normocephalic Eye exam: Present: normal appearance, PERRL ENT exam: Present: mucous membranes dry Neck exam: Present: normal inspection. Absent: tenderness, meningismus Respiratory exam: Present: normal lung sounds bilaterally. Absent: respiratory distress Cardiovascular Exam: Present: regular rate, normal rhythm GI/Abdominal exam: Present: soft, tenderness (Lower abdominal tenderness, bilaterally, no rebound or guarding). Absent: distended, guarding Rectal exam: Present: normal inspection, other (Mild erythema and irritation). Absent: black stool, bloody stool, hemorrhoids Extremities exam: Present: normal inspection, normal capillary refill. Absent: pedal edema Neurological exam: Present: alert, oriented X3, CN II-XII intact. Absent: motor sensory deficit Psychiatric exam: Present: normal affect, normal mood Skin exam: Present: warm, dry, intact. Absent: cyanosis, diaphoretic Course Vital Signs 01/15/20 18:10 Temperature 99.3 F Pulse Rate 66 Respiratory 20 Rate Blood Pressure 144/83 O2 Sat by Pulse 96 Oximetry Medical Decision Making - Medical Decision Making 79-year-old female presenting from primary care office with dehydration, lower abdominal pain, diarrhea. Workup is initiated, shows normal CBC, CMP significant for hypokalemia with potassium 2.9 likely secondary to diarrhea. Patient has some focal lower abdominal tenderness, CT is performed, negative for acute abdominal pathology. Urinalysis is unremarkable. Stool studies have been ordered but patient is unable to provide stool sample while in the emergency department. She does have a previous history of C. diff. She will be kept in observation for IV hydration, and symptom control. Case discussed with Dr. Snell who will admit. - Lab Data Result diagrams: 01/15/20 18:49 10/05/20 18:49 Lab Results 01/15/20 01/15/20 01/15/20 Range/Units 18:49 18:49 18:49 WBC 6.3 (3.8-10.6) k/uL RBC 4.91 (3.80-5.40) m/uL Hgb 14.8 (11.4-16.0) gm/dL Hct 44.1 (34.0-46.0) % MCV 89.7 (80.0-100.0) fL MCH 30.1 (25.0-35.0) pg MCHC 33.5 (31.0-37.0) g/dL RDW 13.4 (11.5-15.5) % Plt Count 248 (150-450) k/uL Neutrophils % 71 % Lymphocytes % 19 % Monocytes % 7 % Eosinophils % 2 % Basophils % 1 % Neutrophils # 4.5 (1.3-7.7) k/uL Lymphocytes # 1.2 (1.0-4.8) k/uL Monocytes # 0.4 (0-1.0) k/uL Eosinophils # 0.1 (0-0.7) k/uL Basophils # 0.0 (0-0.2) k/uL PT 10.3 (9.0-12.0) sec INR 1.0 (<1.2) APTT 22.5 (22.0-30.0) sec Sodium 140 (137-145) mmol/L Potassium 2.9 L (3.5-5.1) mmol/L Chloride 104 (98-107) mmol/L Carbon Dioxide 27 (22-30) mmol/L Anion Gap 9 mmol/L BUN 9 (7-17) mg/dL Creatinine 0.67 (0.52-1.04) mg/dL Est GFR (CKD-EPI)AfAm >90 (>60 ml/min/1.73 sqM) Est GFR (CKD-EPI)NonAf 85 (>60 ml/min/1.73 sqM) Glucose 98 (74-99) mg/dL Plasma Lactic Acid Gianluca (0.7-2.0) mmol/L Calcium 9.0 (8.4-10.2) mg/dL Total Bilirubin 0.5 (0.2-1.3) mg/dL AST 29 (14-36) U/L ALT 11 (4-34) U/L Alkaline Phosphatase 105 (38-126) U/L Total Protein 7.1 (6.3-8.2) g/dL Albumin 4.3 (3.5-5.0) g/dL Amylase 45 (30-110) U/L Lipase 63 (23-300) U/L Urine Color Urine Appearance (Clear) Urine pH (5.0-8.0) Ur Specific [place] (1.001-1.035) Urine Protein (Negative) Urine Glucose (UA) (Negative) Urine Ketones (Negative) Urine Blood (Negative) Urine Nitrite (Negative) Urine Bilirubin (Negative) Urine Urobilinogen (<2.0) mg/dL Ur Leukocyte Esterase (Negative) Urine RBC (0-5) /hpf Urine WBC (0-5) /hpf Ur Squamous Epith Cells (0-4) /hpf Urine Bacteria (None) /hpf Urine Mucus (None) /hpf 01/15/20 01/15/20 Range/Units 18:49 Unknown WBC (3.8-10.6) k/uL RBC (3.80-5.40) m/uL Hgb (11.4-16.0) gm/dL Hct (34.0-46.0) % MCV (80.0-100.0) fL MCH (25.0-35.0) pg MCHC (31.0-37.0) g/dL RDW (11.5-15.5) % Plt Count (150-450) k/uL Neutrophils % % Lymphocytes % % Monocytes % % Eosinophils % % Basophils % % Neutrophils # (1.3-7.7) k/uL Lymphocytes # (1.0-4.8) k/uL Monocytes # (0-1.0) k/uL Eosinophils # (0-0.7) k/uL Basophils # (0-0.2) k/uL PT (9.0-12.0) sec INR (<1.2) APTT (22.0-30.0) sec Sodium (137-145) mmol/L Potassium (3.5-5.1) mmol/L Chloride (98-107) mmol/L Carbon Dioxide (22-30) mmol/L Anion Gap mmol/L BUN (7-17) mg/dL Creatinine (0.52-1.04) mg/dL Est GFR (CKD-EPI)AfAm (>60 ml/min/1.73 sqM) Est GFR (CKD-EPI)NonAf (>60 ml/min/1.73 sqM) Glucose (74-99) mg/dL Plasma Lactic Acid Gianluca 1.2 (0.7-2.0) mmol/L Calcium (8.4-10.2) mg/dL Total Bilirubin (0.2-1.3) mg/dL AST (14-36) U/L ALT (4-34) U/L Alkaline Phosphatase (38-126) U/L Total Protein (6.3-8.2) g/dL Albumin (3.5-5.0) g/dL Amylase (30-110) U/L Lipase (23-300) U/L Urine Color Colorless Urine Appearance Clear (Clear) Urine pH 6.0 (5.0-8.0) Ur Specific [place] 1.006 (1.001-1.035) Urine Protein Negative (Negative) Urine Glucose (UA) Negative (Negative) Urine Ketones Negative (Negative) Urine Blood Negative (Negative) Urine Nitrite Negative (Negative) Urine Bilirubin Negative (Negative) Urine Urobilinogen <2.0 (<2.0) mg/dL Ur Leukocyte Esterase Moderate H (Negative) Urine RBC <1 (0-5) /hpf Urine WBC 14 H (0-5) /hpf Ur Squamous Epith Cells <1 (0-4) /hpf Urine Bacteria Few H (None) /hpf Urine Mucus Rare H (None) /hpf Disposition Clinical Impression: Diarrhea, Abdominal pain, Weakness, Dehydration Disposition: ADMITTED IP TO THIS [facility] Condition: Stable Is patient prescribed a controlled substance at d/c from ED?: No Referrals: Franklyn Marino DO [Primary Care Provider] - 1-2 days Decision to Admit Reason: Admit from EC Decision Date: 01/15/20 Decision Time: 20:50
[2020-01-15 19:14] LABS: Partial Thromboplastin Time 22.5 sec (22.0-30.0); Prothrombin Time 10.3 sec (9.0-12.0)
[2020-01-15] MEDS ORDERED: POTASSIUM CHLORIDE ER 20 MEQ TAB.ER PO STA (19:55)
--- NOTE | 2020-01-15 20:10 | CT ---
EXAMINATION TYPE: CT abdomen pelvis w con DATE OF EXAM: 01/15/2020 COMPARISON: Prior PET/CT 11/10/2019 HISTORY: abdominal pain, diarrhea, hx of c-diff CT DLP: 1751.2 mGycm Automated exposure control for dose reduction was used. TECHNIQUE: Helical acquisition of images from the lung bases through the pelvis have been completed. CONTRAST: Performed without Oral Contrast and with IV Contrast, patient injected with 100 mL of Isovue 300. FINDINGS: Paraesophageal hernia, partial intrathoracic stomach is present. There is motion present. LUNG BASES: No significant abnormality is appreciated. AORTA: No significant abnormality is appreciated. LIVER/GB: Patient is post cholecystectomy. Liver shows no mass. Low-attenuation within the liver may be due to hepatic steatosis. PANCREAS: No significant abnormality is seen. SPLEEN: No significant abnormality is seen. ADRENALS: No significant abnormality is seen. KIDNEYS: No significant abnormality is seen. REPRODUCTIVE ORGANS: Not seen BOWEL: No significant abnormality is seen. No evident appendicitis. FREE AIR: No Free Air visible. ASCITES: None visible. PELVIC ADENOPATHY: None visualized. RETROPERITONEAL ADENOPATHY: There are some retroperitoneal nodes present just not clearly enlarged s imilar to prior exam. URINARY BLADDER: No significant abnormality is seen. OSSEOUS STRUCTURES: Postop changes in the lumbosacral spine status post fusion, streak artifact. Kevin ateral hip prostheses are also present.. IMPRESSION: 1. POSTOP CHANGES. ADDITIONAL FINDINGS ABOVE.
[2020-01-15 20:15] LABS: Appearance,Urine Clear (Clear); Bacteria,Urine Few /hpf; Bilirubin,Urine Negative (Negative); Blood,Urine Negative (Negative); Color,Urine Colorless; Glucose,Urine (UA) Negative (Negative); Ketones,Urine Negative (Negative); Leukocyte Esterase,Urine Moderate (Negative); Mucus,Urine Rare /hpf; Nitrite,Urine Negative (Negative); Protein,Urine Negative (Negative); RBC,Urine <1 /hpf (0-5); Specific Gravity,Urine 1.006 (1.001-1.035); Squamous Epithelial Cell,Urine <1 /hpf (0-4); Urobilinogen,Urine <2.0 mg/dL (<2.0); WBC,Urine 14 /hpf (0-5)
[2020-01-15] MEDS ORDERED: MORPHINE SULFATE 4 MG/ML SYRINGE IV PRN (20:46)
[2020-01-15] MEDS ORDERED: NALOXONE 0.4 MG/ML 1 ML VIAL IV PRN (20:46)
[2020-01-15] MEDS ORDERED: ACETAMINOPHEN TAB 325 MG TAB PO PRN (20:46)
[2020-01-15] MEDS ORDERED: ONDANSETRON 4 MG/2 ML VIAL IVP PRN (20:46)
[2020-01-15] MEDS ORDERED: traZODone HCL 100 MG TAB PO SCH (23:45)
[2020-01-16] MEDS: ALPRAZolam 1 MG TAB PO PRN ×2 (00:12→11:52)
[2020-01-16] MEDS: oxyCODONE-APAP 10-325MG 1 EACH TAB PO SCH ×2 (00:13→07:31)
[2020-01-16] MEDS ORDERED: LEVOTHYROXINE 50 MCG TAB PO SCH (06:30)
[2020-01-16 07:30] VITALS: PULSE 82; RESP 16
[2020-01-16] MEDS ORDERED: PANTOPRAZOLE 40 MG TABLET PO SCH (07:30)
[2020-01-16 07:38] LABS: Basophils % (A) 1 %; Eosinophils # (A) 0.1 k/uL (0-0.7); Eosinophils % (A) 2 %; HCT 41.2 % (34.0-46.0); HGB 13.5 gm/dL (11.4-16.0); Lymphocytes # (A) 1.3 k/uL (1.0-4.8); Lymphocytes % (A) 29 %; MCH 30.5 pg (25.0-35.0); MCHC 32.6 g/dL (31.0-37.0); MCV 93.4 fL (80.0-100.0); Mean Platelet Volume 7.1; Monocytes # (A) 0.4 k/uL (0-1.0); Monocytes % (A) 9 %; Neutrophils # (A) 2.5 k/uL (1.3-7.7); Neutrophils % (A) 58 %; Platelet Count 192 k/uL (150-450); RBC 4.42 m/uL (3.80-5.40); RDW 13.7 % (11.5-15.5); WBC 4.4 k/uL (3.8-10.6)
[2020-01-16 07:55] LABS: ALT 9 U/L (4-34); AST 28 U/L (14-36); African American GFR (CKD) >90 (>60 ml/min/1.73 sqM); Albumin 3.4 g/dL (3.5-5.0); Alkaline Phosphatase 75 U/L (38-126); Anion Gap 9 mmol/L; Blood Urea Nitrogen 10 mg/dL (7-17); Calcium 8.5 mg/dL (8.4-10.2); Carbon Dioxide 23 mmol/L (22-30); Chloride 108 mmol/L (98-107); Glucose 77 mg/dL (74-99); Non-African American GFR(CKD) 81 (>60 ml/min/1.73 sqM); Potassium 3.7 mmol/L (3.5-5.1); Sodium 140 mmol/L (137-145); Total Bilirubin 0.5 mg/dL (0.2-1.3); Total Protein 6.1 g/dL (6.3-8.2)
[2020-01-16] MEDS ORDERED: MIRTAZAPINE 15 MG TAB PO SCH (09:00)
[2020-01-16] MEDS ORDERED: FERROUS SULFATE 325 MG TAB PO SCH (09:00)
[2020-01-16] MEDS ORDERED: NYSTATIN 100,000 UNIT/GM POWD 15 GM TOPICAL SCH (09:00)
[2020-01-16] MEDS ORDERED: atenoloL 25 MG TAB PO SCH (09:00)
[2020-01-16] MEDS ORDERED: CITALOPRAM HYDROBROMIDE 20 MG TAB PO SCH (09:00)
[2020-01-16] MEDS ORDERED: FUROSEMIDE 40 MG TAB PO SCH (09:00)
--- NOTE | 2020-01-16 10:30 | P.HPIM ---
History of Present Illness H&P Date: 01/16/20 Chief Complaint: Abdominal pain HISTORY AND PHYSICAL AND DISCHARGE SUMMARY: HISTORY OF PRESENT ILLNESS This is a 79-year-old female patient of Dr. Marino with past medical history of hypertension, hypertensive cardiovascular disease, mitral valve prolapse, supraventricular tachycardia, rheumatoid arthritis, GERD, COPD, and recurrent C. diff colitis. 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 diff at [facility] 3. The patient has had multiple hospitalizations regarding anemia with hemoglobin as low as 4.8 and followed by GI and oncology with plan for transfusions/iron infusions as an outpatient. August 2018 which time she was treated for acute anemia secondary to acute blood loss and chronic dise ase and possible GI bleed and she was transfused for a total of 3 units of packed RBCs. She underwent EGD at that time that showed multiple Silviano erosions without bleeding. She has not had any recent recurrence of C. difficile colitis. Patient was hospitalized in October of this year at which time she underwent hemorrhoid surgery with Dr. Myers. 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 Patient was subsequently seen by Dr. Whitaker [facility] and she was last here about 1-1/2 weeks ago. She is scheduled for endoscopy every 6 month for one year. Of time. No plan for chemotherapy. Patient gives history that she has had diarrhea without blood. She was seen by Dr. Marino yesterday afternoon and he center in the hospital for further evaluation. Patient was found to have a temperature 99.3, heart rate 66, blood pressure 144/83, pulse ox 96% on room air. CBC was normal. Electrolytes normal except for potassium 2.9. Urinalysis showed moderate leukoesterase, wbc's 14, bacteria few. Culture is in progress. Patient was placed on the observation unit and consult with Dr. Myers was requested. Patient states the diarrhea has resolved. C. difficile toxin and stool studies were unable to be obtained. She has been on ceftriaxone for UTI. Patient has b ee seen by general surgery and cleared for discharge. Patient will be discharged home in stable condition. REVIEW OF SYSTEMS Constitutional: No fever, no chills, no night sweats. No weight change. No weakness, fatigue or lethargy. No daytime sleepiness. EENT: No headache. No blurred vision or double vision, no loss of vision. No loss of Hearing, no ringing in the ears, no dizziness. No nasal drainage or congestion. No epistaxis. No sore throat. Lungs: No shortness of breath, cough, no sputum production. No wheezing. Cardiovascular: No chest pain, no lower extremity edema. No palpitations. No paroxysmal nocturnal dyspnea. No orthopnea. No lightheadedness or dizziness. No syncopal episodes. Abdominal: No abdominal pain. No nausea, vomiting. Reports diarrhea-resolved. No constipation. No bloody or tarry stools. No loss of appetite. Genitourinary: No dysuria, increased frequency, urgency. No urinary retention. Musculoskeletal: No myalgias. No muscle weakness, no gait dysfunction, no frequent falls. No back pain. No neck pain. Integumentary: No wounds, no lesions. No rash or pruritus. No unusual bruising. No change in hair or nails. Neurologic: No aphasia. No facial droop. No change in mentation. No head injury. No headache. No paralysis. No paresthesia. Psychiatric: No depression. No anxiety. No mood swings. Endocrine: No abnormal blood sugars. No weight change. No excessive sweating or thirst. No cold intolerance. SOCIAL HISTORY Patient was a smoker of 6 cigarettes per day for 68 years and currently is come back to one cigarette per day. No alcohol use or abuse. No street drug use, marijuana use. She lives in her own home and has a woman from [employer] [place] [address] every week for housekeeping. She also has a man renting a room. FAMILY HISTORY Mother at age 60 with history of emphysema and lung cancer. Father at age 74 with problems with his larynx. Patient has one adopted sister but no biological sisters. Patient has 2 sons and one is biological inhalers adopted who from myocardial infarction. Patient has 3 sons and one of them is adopted and has from myocardial infarctions well. PHYSICAL EXAMINATION Gen: This is a 79-year-old female. She is resting in bed and appears to be comfortable and in no acute distress. HEENT: Head is atraumatic, normocephalic. Pupils equal, round. Sclerae is anicteric. NECK: Supple. No JVD. No lymphadenopathy. No thyromegaly. LUNGS: Clear to auscultation. No wheezes or rhonchi. No intercostal retractions. HEART: Regular rate and rhythm. Systolic ejection murmur 2/6 at the left sternal border. ABDOMEN: Soft. Bowel sounds are present. No masses. No tenderness. EXTREMITIES: No pedal edema. No calf tenderness. NEUROLOGICAL: Patient is awake, alert and oriented x3. Cranial nerves 2 through 12 are grossly intact. ASSESSMENT AND PLAN 1. Diarrhea, resolved. Unable to obtain stool specimens. 2. UTI. Patient will be on a short course of ceftriaxone/Ceftin. 3. History of melanoma rectum under the care of [facility]. 4. Anemia of chronic disease. No signs of bleeding. 5. History of C.Difficile colitis status post fecal transplant at [facility]. Monitor closely. 5 6. History of SVT. Stable. Continue atenolol 25 mg daily. 5. Hypertension and hypertensive cardiovascular disease. Continue atenolol. 6. GERD. Continue Protonix 40 mg daily. 7. Rheumatoid arthritis. Stable. 8. Hypothyroidism. Continue levothyroxine 50 MCG daily 9. Generalized anxiety disorder. Continue Xanax 0.5 mg every 8 hours as needed 10. Recurrent depression. Continue Celexa 40 mg daily. 11. DVT prophylaxis. Early ambulation 12. GI prophylaxis. Protonix 40 mg daily. 13. Chronic back pain. Percocet 10 one every 8 hours as needed. Patient placed on the observation unit. Discharge plan: home Discharge Medication List Citalopram Hydrobromide [CeleXA] 40 mg PO DAILY 05/12/18 [History] Furosemide [Lasix] 40 mg PO DAILY 05/12/18 [History] ALPRAZolam [Xanax] 2 mg PO Q8H PRN 06/06/18 [History] Levothyroxine Sodium [Synthroid] 50 mcg PO DAILY 06/06/18 [History] traZODone HCL [Desyrel] 200 mg PO HS 11/09/18 [History] Ferrous Sulfate [Iron (65 MG Elemental)] 325 mg PO DAILY 06/29/19 [History] oxyCODONE-APAP 10-325MG [Percocet 10-325 mg] 1 tab PO Q8HR 06/29/19 [History] atenoloL [Tenormin] 25 mg PO DAILY #30 tab 10/12/19 [Rx] Esomeprazole Magnesium [NexIUM 24Hr] 20 mg PO DAILY 10/15/19 [History] Ibuprofen [Advil] 200 mg PO Q8HR PRN 01/15/20 [History] Mirtazapine 7.5 mg PO DAILY 01/15/20 [History] Cefuroxime [Ceftin] 250 mg PO BID 3 Days #6 tab 01/16/20 [Rx] Nystatin 100,000 Unit/gm Powd [Mycostatin Powder] 1 applic TOPICAL TID #15 g 01/16/20 [Rx] Impression and plan of care have been directed as dictated by the signing physician. Domenica Reed nurse practitioner acting as scribe for signing physician. Past Medical History Past Medical History: Atrial Fibrillation, Atrial Flutter, GERD/Reflux, Hyperlipidemia, Hypertension, Mitral Valve Prolapse (MVP), Rheumatoid Arthritis (RA), Thyroid Disorder Additional Past Medical History / Comment(s): OTHER HX: 03/06/14, 03/30/14, 07/03/14, 07/29/14 with CDIFF colitis, HYPOTHYROID, MVP, urinary incontinence, PROLAPSED MITRAL VALVE- NO PROBLEMS FOR 30 YRS.anemia -requiring blood transfusion History of Any Multi-Drug Resistant Organisms: C-DIFF Date of last positivie culture/infection: 2015 MDRO Source:: Stool Past Surgical History: Adenoidectomy, Cholecystectomy, Hysterectomy, Joint Replacement, Orthopedic Surgery, Tonsillectomy Additional Past Surgical History / Comment(s): 02/18/16 total R hip arthroplasty. Other surgical HX: BILATERAL KNEE REPLACEMENT (2003-RIGHT & 2005 - LEFT); LOWER LUMBAR LAMINECTOMYL4-L5 (2007); LEFT HIP REPLACEMENT (2012); RIGHT SHOULDER REPLACEMENT (2008), left total knee arthroplasty revision. Bilateral cataracts with lens implants. FECAL TRASPLANT TX FOR C-DIFF three times.cataracts-lens implants hemmoroid removed Past Anesthesia/Blood Transfusion Reactions: No Reported Reaction Additional Past Anesthesia/Blood Transfusion Reaction / Comment(s): blood transfusion in past no reactions Past Psychological History: Anxiety, Depression Additional Psychological History / Comment(s): Pt resides in her own home. Her nephew who is very ill stays with pt. She uses a walker to ambulate. She has a nebulizer, She is able to drive. Smoking Status: Current every day smoker Past Alcohol Use History: None Reported Additional Past Alcohol Use History / Comment(s): Patient has smoked since 1954- 5 cig per day.No alcohol use or abuse. No street drug use no marijuana use. Past Drug Use History: None Reported - Past Family History Mother Family Medical History: Cancer Additional Family Medical History / Comment(s): Mother at age 60 with history of emphysema and lung cancer. Father Family Medical History: CVA/TIA Additional Family Medical History / Comment(s): Father at age 74 with problems with his larynx. Sister(s) Family Medical History: Unable to Obtain Daughter(s) Family Medical History: COPD, Myocardial Infarction ([place]) Additional Family Medical History / Comment(s): Mother at age 60 yrs of emphysema/lung CA Son(s) Family Medical History: Myocardial Infarction ([place]) Additional Family Medical History / Comment(s): Father at age 74yrs with "CVA of his larynx" Medications and Allergies Home Medications Medication Instructions Recorded Confirmed Type Citalopram Hydrobromide [CeleXA] 40 mg PO DAILY 05/12/18 01/15/20 History Furosemide [Lasix] 40 mg PO DAILY 05/12/18 01/15/20 History ALPRAZolam [Xanax] 2 mg PO Q8H PRN 06/06/18 01/15/20 History Levothyroxine Sodium [Synthroid] 50 mcg PO DAILY 06/06/18 01/15/20 History traZODone HCL [Desyrel] 200 mg PO HS 11/09/18 01/15/20 History Ferrous Sulfate [Iron (65 MG 325 mg PO DAILY 06/29/19 01/15/20 History Elemental)] oxyCODONE-APAP 10-325MG [Percocet 1 tab PO Q8HR 06/29/19 01/15/20 History 10-325 mg] atenoloL [Tenormin] 25 mg PO DAILY #30 tab 10/12/19 01/15/20 Rx Esomeprazole Magnesium [NexIUM 20 mg PO DAILY 10/15/19 01/15/20 History 24Hr] Ibuprofen [Advil] 200 mg PO Q8HR PRN 01/15/20 01/15/20 History Mirtazapine 7.5 mg PO DAILY 01/15/20 01/15/20 History Cefuroxime [Ceftin] 250 mg PO BID 3 Days #6 tab 01/16/20 Rx Nystatin 100,000 Unit/gm Powd 1 applic TOPICAL TID #15 g 01/16/20 Rx [Mycostatin Powder] Allergies Allergy/AdvReac Type Severity Reaction Status Date / Time adhesive tape Allergy Rash/Hives Verified 01/15/20 21:10 Influenza Virus Vaccines Allergy "MAKES HER Verified 01/15/20 21:10 FEEL SICK" Sulfa (Sulfonamide Allergy Rash/Hives Verified 01/15/20 21:10 Antibiotics) amoxicillin trihydrate AdvReac Diarrhea Verified 01/15/20 21:10 [From Augmentin] ciprofloxacin [From Cipro] AdvReac Unknown Verified 01/15/20 21:10 metronidazole [From Flagyl] AdvReac Unknown Verified 01/15/20 21:10 potassium clavulanate AdvReac Diarrhea Verified 01/15/20 21:10 [From Augmentin] quinidine AdvReac BLOOD CLOTS Verified 01/15/20 21:10 Physical Exam Vitals: Vital Signs Temp Pulse Pulse Resp BP BP Pulse Ox 01/16/20 03:00 98 F 67 15 123/76 96 01/15/20 21:44 98.3 F 70 16 107/56 97 01/15/20 21:00 78 18 121/81 96 01/15/20 18:10 99.3 F 66 20 144/83 96 Intake and Output 01/15/20 01/16/20 01/16/20 22:59 06:59 14:59 Other: # Voids 1 Weight 87.09 kg Results CBC & Chem 7: 01/16/20 07:06 01/16/20 07:06 Labs: Abnormal Lab Results - Last 24 Hours (Table) 01/15/20 01/15/20 Range/Units 18:49 Unknown Potassium 2.9 L (3.5-5.1) mmol/L Ur Leukocyte Esterase Moderate H (Negative) Urine WBC 14 H (0-5) /hpf Urine Bacteria Few H (None) /hpf Urine Mucus Rare H (None) /hpf Microbiology - Last 24 Hours (Table) 01/15/20 Unknown Urine Culture - Preliminary Urine,Voided Thrombosis Risk Factor Assmnt - Choose All That Apply Any of the Below Risk Factors Present?: Yes Each Factor Represents 1 point: Obesity (BMI >25) Other Risk Factors: Yes Each Risk Factor Represents 2 Points: Age 61-74 years Other congenital or acquired thrombophilia - If yes, enter type in comment: No Thrombosis Risk Factor Assessment Total Risk Factor Score: 3 Thrombosis Risk Factor Assessment Level: Moderate Risk
--- NOTE | 2020-01-16 13:26 | P.GSCN ---
History of Present Illness Consult date: 01/16/20 History of present illness: CHIEF COMPLAINT: CHIEF COMPLAINT: HISTORY OF PRESENT ILLNESS: This is a 79-year-old female with a known past medical history of recurrent C. diff colitis and requiring fecal transplant. She also has a history of melanoma of the anus, hypertension, hypertensive cardiovascular disease, mitral valve prolapse, supraventricular tachycardia, r heumatoid arthritis, GERD and COPD. she also has a surgical history of cholecystectomy and hysterectomy. Patient presents to the emergency room with complaints of lower abdominal pain and diarrhea. Patient had a computed tomography scan of the abdomen and pelvis which was unremarkable. At this time her diarrhea has resolved nursing staff was unable to collect stool specimens. Patient denies any fever, chills or sweats. Denies any nausea or vomiting. She is currently tolerating regular diet. Medicine has started her on antibiotics for UTI. PAST MEDICAL HISTORY: See list. PAST SURGICAL HISTORY: See list. MEDICATIONS: See list. ALLERGIES: See list. SOCIAL HISTORY: No illicit drug use. REVIEW OF SYSTEMS: CONSTITUTIONAL: Denies fever or chills. HEENT: Denies blurred vision, vision changes, or eye pain. Denies hemoptysis CARDIOVASCULAR: Denies chest pain or pressure. RESPIRATORY: No shortness of breath. GASTROINTESTINAL: See HPI for pertinent findings HEMATOLOGIC: Denies bleeding disorders. GENITOURINARY: Denies any blood in urine or increased urinary frequency. SKIN: Denies pruitis. Denies rash. PHYSICAL EXAM: VITAL SIGNS: Reviewed GENERAL: Well-developed in no acute distress. HEENT: No sclera icterus. Extraocular movements grossly intact. Moist buccal m ucosa. Head is atraumatic, normocephalic. No nasal drainage. ABDOMEN: Soft. Nondistended. Nontender with palpation NEUROLOGIC: Alert and oriented. Cranial nerves II through XII grossly intact. LABORATORY DATA: WBC 4.4 hemoglobin 13.5 potassium 3.7 AST 28 ALT 9 lipase 63 IMAGING: Computed tomography scan of abdomen and pelvis postop changes. ASSESSMENT: 1. Abdominal pain with diarrhea now resolved 2. History of melanoma of the anus 3. History of recurrent C. diff colitis requiring fecal transplant at [facility] 4. UTI medicine his place patient on antibiotics PLAN: -No surgical intervention planned -Continue regular diet Thank you for this consultation Physician Director Of Child Welfare Services note has been reviewed by physician. Signing provider agrees with the documented findings, assessment, and plan of care. Past Medical History Past Medical History: Atrial Fibrillation, Atrial Flutter, GERD/Reflux, Hyperlipidemia, Hypertension, Mitral Valve Prolapse (MVP), Rheumatoid Arthritis (RA), Thyroid Disorder Additional Past Medical History / Comment(s): OTHER HX: 03/06/14, 03/30/14, 07/03/14, 07/29/14 with CDIFF colitis, HYPOTHYROID, MVP, urinary incontinence, PROLAPSED MITRAL VALVE- NO PROBLEMS FOR 30 YRS.anemia -requiring blood transfusion History of Any Multi-Drug Resistant Organisms: C-DIFF Year Discovered:: 2016 MDRO Source:: Stool Past Surgical History: Adenoidectomy, Cholecystectomy, Hysterectomy, Joint Replacement, Orthopedic Surgery, Tonsillectomy Additional Past Surgical History / Comment(s): 02/18/16 total R hip arthroplasty. Other surgical HX: BILATERAL KNEE REPLACEMENT (2003-RIGHT & 2005 - LEFT); LOWER LUMBAR LAMINECTOMYL4-L5 (2007); LEFT HIP REPLACEMENT (2012); RIGHT SHOULDER REPLACEMENT (2008), left total knee arthroplasty revision. Bilateral cataracts with lens implants. FECAL TRASPLANT TX FOR C-DIFF three times.cataracts-lens implants hemmoroid removed Past Anesthesia/Blood Transfusion Reactions: No Reported Reaction Additional Past Anesthesia/Blood Transfusion Reaction / Comm: blood transfusion in past no reactions Past Psychological History: Anxiety, Depression Additional Psychological History / Comment(s): Pt resides in her own home. Her nephew who is very ill stays with pt. She uses a walker to ambulate. She has a nebulizer, She is able to drive. Smoking Status: Current every day smoker Past Alcohol Use History: None Reported Additional Past Alcohol Use History / Comment(s): Patient has smoked since 1954- 5 cig per day.No alcohol use or abuse. No street drug use no marijuana use. Past Drug Use History: None Reported - Past Family History Mother Family Medical History: Cancer Additional Family Medical History / Comment(s): Mother at age 60 with h istory of emphysema and lung cancer. Father Family Medical History: CVA/TIA Additional Family Medical History / Comment(s): Father at age 74 with problems with his larynx. Sister(s) Family Medical History: Unable to Obtain Daughter(s) Family Medical History: COPD, Myocardial Infarction ([place]) Additional Family Medical History / Comment(s): Mother at age 60 yrs of emphysema/lung CA Son(s) Family Medical History: Myocardial Infarction ([place]) Additional Family Medical History / Comment(s): Father at age 74yrs with "CVA of his larynx" Medications and Allergies Home Medications Medication Instructions Recorded Confirmed Type Citalopram Hydrobromide [CeleXA] 40 mg PO DAILY 05/12/18 01/15/20 History Furosemide [Lasix] 40 mg PO DAILY 05/12/18 01/15/20 History ALPRAZolam [Xanax] 2 mg PO Q8H PRN 06/06/18 01/15/20 History Levothyroxine Sodium [Synthroid] 50 mcg PO DAILY 06/06/18 01/15/20 History traZODone HCL [Desyrel] 200 mg PO HS 11/09/18 01/15/20 History Ferrous Sulfate [Iron (65 MG 325 mg PO DAILY 06/29/19 01/15/20 History Elemental)] oxyCODONE-APAP 10-325MG [Percocet 1 tab PO Q8HR 06/29/19 01/15/20 History 10-325 mg] atenoloL [Tenormin] 25 mg PO DAILY #30 tab 10/12/19 01/15/20 Rx Esomeprazole Magnesium [NexIUM 20 mg PO DAILY 10/15/19 01/15/20 History 24Hr] Ibuprofen [Advil] 200 mg PO Q8HR PRN 01/15/20 01/15/20 History Mirtazapine 7.5 mg PO DAILY 01/15/20 01/15/20 History Allergies Allergy/AdvReac Type Severity Reaction Status Date / Time adhesive tape Allergy Rash/Hives Verified 01/15/20 21:10 Influenza Virus Vaccines Allergy "MAKES HER Verified 01/15/20 21:10 FEEL SICK" Sulfa (Sulfonamide Allergy Rash/Hives Verified 01/15/20 21:10 Antibiotics) amoxicillin trihydrate AdvReac Diarrhea Verified 01/15/20 21:10 [From Augmentin] ciprofloxacin [From Cipro] AdvReac Unknown Verified 01/15/20 21:10 metronidazole [From Flagyl] AdvReac Unknown Verified 01/15/20 21:10 potassium clavulanate AdvReac Diarrhea Verified 01/15/20 21:10 [From Augmentin] quinidine AdvReac BLOOD CLOTS Verified 01/15/20 21:10 Surgical - Exam Vital Signs Temp Pulse Resp BP Pulse Ox 99.3 F 66 20 144/83 96 01/15/20 18:10 01/15/20 18:10 01/15/20 18:10 01/15/20 18:10 01/15/20 18:10 Results - Labs 01/16/20 07:06 01/16/20 07:06 Abnormal Lab Results - Last 24 Hours (Table) 01/15/20 01/15/20 01/16/20 Range/Units 18:49 Unknown 07:06 Potassium 2.9 L (3.5-5.1) mmol/L Chloride 108 H (98-107) mmol/L Total Protein 6.1 L (6.3-8.2) g/dL Albumin 3.4 L (3.5-5.0) g/dL Ur Leukocyte Esterase Moderate H (Negative) Urine WBC 14 H (0-5) /hpf Urine Bacteria Few H (None) /hpf Urine Mucus Rare H (None) /hpf Microbiology - Last 24 Hours (Table) 01/15/20 Unknown Urine Culture - Preliminary Urine,Voided Diabetes panel 01/15/20 01/16/20 Range/Units 18:49 07:06 Sodium 140 140 (137-145) mmol/L Potassium 2.9 L 3.7 (3.5-5.1) mmol/L Chloride 104 108 H (98-107) mmol/L Carbon Dioxide 27 23 (22-30) mmol/L BUN 9 10 (7-17) mg/dL Creatinine 0.67 0.72 (0.52-1.04) mg/dL Glucose 98 77 (74-99) mg/dL Calcium 9.0 8.5 (8.4-10.2) mg/dL AST 29 28 (14-36) U/L ALT 11 9 (4-34) U/L Alkaline Phosphatase 105 75 (38-126) U/L Total Protein 7.1 6.1 L (6.3-8.2) g/dL Albumin 4.3 3.4 L (3.5-5.0) g/dL Calcium panel 01/15/20 01/16/20 Range/Units 18:49 07:06 Calcium 9.0 8.5 (8.4-10.2) mg/dL Albumin 4.3 3.4 L (3.5-5.0) g/dL Pituitary panel 01/15/20 01/16/20 Range/Units 18:49 07:06 Sodium 140 140 (137-145) mmol/L Potassium 2.9 L 3.7 (3.5-5.1) mmol/L Chloride 104 108 H (98-107) mmol/L Carbon Dioxide 27 23 (22-30) mmol/L BUN 9 10 (7-17) mg/dL Creatinine 0.67 0.72 (0.52-1.04) mg/dL Glucose 98 77 (74-99) mg/dL Calcium 9.0 8.5 (8.4-10.2) mg/dL Adrenal panel 01/15/20 01/16/20 Range/Units 18:49 07:06 Sodium 140 140 (137-145) mmol/L Potassium 2.9 L 3.7 (3.5-5.1) mmol/L Chloride 104 108 H (98-107) mmol/L Carbon Dioxide 27 23 (22-30) mmol/L BUN 9 10 (7-17) mg/dL Creatinine 0.67 0.72 (0.52-1.04) mg/dL Glucose 98 77 (74-99) mg/dL Calcium 9.0 8.5 (8.4-10.2) mg/dL Total Bilirubin 0.5 0.5 (0.2-1.3) mg/dL AST 29 28 (14-36) U/L ALT 11 9 (4-34) U/L Alkaline Phosphatase 105 75 (38-126) U/L Total Protein 7.1 6.1 L (6.3-8.2) g/dL Albumin 4.3 3.4 L (3.5-5.0) g/dL
[2020-01-16 15:02] VITALS: BP 132/84; TEMP 98.2
[2020-01-16] MEDS ORDERED: traZODone HCL 100 MG TAB PO SCH (21:00)
== END 2020-01-16 18:41 | disposition home or self-care (01) ==
LOC: EC 18:07 → SUPCPDRO 18:07 → 1SOBS 20:48
PROVIDERS: ADMIT Internal Medicine Geriatric Medicine; ATTEND Internal Medicine Geriatric Medicine
DX: R19.7 Diarrhea, unspecified (principal); R10.31 Right lower quadrant pain; R10.32 Left lower quadrant pain; R53.1 Weakness; R15.9 Full incontinence of feces; N39.0 Urinary tract infection, site not specified; E86.0 Dehydration; E87.6 Hypokalemia; R10.819 Abdominal tenderness, unspecified site; D63.8 Anemia in other chronic diseases classified elsewhere; I47.1 Supraventricular tachycardia; I11.9 Hypertensive heart disease without heart failure; K21.9 Gastro-esophageal reflux disease without esophagitis; M06.9 Rheumatoid arthritis, unspecified; E03.9 Hypothyroidism, unspecified; F41.1 Generalized anxiety disorder; F33.9 Major depressive disorder, recurrent, unspecified; G89.29 Other chronic pain; M54.9 Dorsalgia, unspecified; I48.91 Unspecified atrial fibrillation; E78.5 Hyperlipidemia, unspecified; I34.1 Nonrheumatic mitral (valve) prolapse; R32 Unspecified urinary incontinence; J44.9 Chronic obstructive pulmonary disease, unspecified; E66.9 Obesity, unspecified; F17.210 Nicotine dependence, cigarettes, uncomplicated; Z92.89 Personal history of other medical treatment; Z86.19 Personal history of other infectious and parasitic diseases; Z85.048 Personal history of other malignant neoplasm of rectum, rectosigmoid junction, and anus; Z90.49 Acquired absence of other specified parts of digestive tract; Z79.899 Other long term (current) drug therapy; Z79.890 Hormone replacement therapy; Z79.891 Long term (current) use of opiate analgesic; Z79.1 Long term (current) use of non-steroidal anti-inflammatories (NSAID); Z91.09 Other allergy status, other than to drugs and biological substances; Z88.7 Allergy status to serum and vaccine; Z88.2 Allergy status to sulfonamides; Z88.0 Allergy status to penicillin; Z88.1 Allergy status to other antibiotic agents; Z88.8 Allergy status to other drugs, medicaments and biological substances; Z86.79 Personal history of other diseases of the circulatory system; Z90.89 Acquired absence of other organs; Z90.710 Acquired absence of both cervix and uterus; Z98.890 Other specified postprocedural states; Z96.653 Presence of artificial knee joint, bilateral; Z96.643 Presence of artificial hip joint, bilateral; Z96.611 Presence of right artificial shoulder joint; Z98.41 Cataract extraction status, right eye; Z98.42 Cataract extraction status, left eye; Z96.1 Presence of intraocular lens; Z87.19 Personal history of other diseases of the digestive system; Z68.31 Body mass index [BMI] 31.0-31.9, adult; Z80.1 Family history of malignant neoplasm of trachea, bronchus and lung; Z82.5 Family history of asthma and other chronic lower respiratory diseases; Z82.3 Family history of stroke; Z82.49 Family history of ischemic heart disease and other diseases of the circulatory system
CPT/HCPCS: 96365; 96361; 96375; 99285; 36415; 80053 ×2; 82150; 83605; 83690; 85025 ×2; 85610; 85730; 81001; 87086; 87077; 87186; 74177; G0378 ×2; J2270; J0696; Q9967

== ENCOUNTER 2020-03-04 13:38 | Emergency (ER) | payer MEDICARE ==
[2020-03-04] MEDS ORDERED: ACETAMINOPHEN TAB 500 MG TAB PO STA (13:46)
[2020-03-04] MEDS ORDERED: KETOROLAC 15 MG/ML 1 ML VIAL IM STA (13:46)
[2020-03-04] MEDS ORDERED: predniSONE 50 MG TAB PO STA (13:46)
[2020-03-04 13:49] VITALS: RESP 18
--- NOTE | 2020-03-04 13:54 | ED ---
General Adult HPI - General Stated complaint: Nerve Pain Time Seen by Provider: 03/04/20 13:38 Source: patient, RN notes reviewed, old records reviewed - History of Present Illness Initial comments: This is a 79-year-old female who presents emergency Department complaining that her sciatica is acting up. Patient states it started yesterday and the pain is from her lower left back down her buttocks and into the posterior aspect of her thigh. Patient denies any numbness or any weakness but it hurts to move her leg at all. Patient states his to the point where it's making it very difficult to walk. It was unaware that she had a fever but EMS took a temperature and had a low-grade fever. Patient denies any dysuria hematuria urinary frequency. Patient denies any abdominal pain patient denies nausea vomiting diarrhea. Patient denies any chest pain patient has a developing shortness of breath or cough. - Related Data Home Medications Medication Instructions Recorded Confirmed Citalopram Hydrobromide [CeleXA] 40 mg PO DAILY 05/12/18 01/15/20 Furosemide [Lasix] 40 mg PO DAILY 05/12/18 01/15/20 ALPRAZolam [Xanax] 2 mg PO Q8H PRN 06/06/18 01/15/20 Levothyroxine Sodium [Synthroid] 50 mcg PO DAILY 06/06/18 01/15/20 traZODone HCL [Desyrel] 200 mg PO HS 11/09/18 01/15/20 Ferrous Sulfate [Iron (65 MG 325 mg PO DAILY 06/29/19 01/15/20 Elemental)] oxyCODONE-APAP 10-325MG [Percocet 1 tab PO Q8HR 06/29/19 01/15/20 10-325 mg] Esomeprazole Magnesium [NexIUM 20 mg PO DAILY 10/15/19 01/15/20 24Hr] Ibuprofen [Advil] 200 mg PO Q8HR PRN 01/15/20 01/15/20 Mirtazapine 7.5 mg PO DAILY 01/15/20 01/15/20 Previous Rx's Medication Instructions Recorded atenoloL [Tenormin] 25 mg PO DAILY #30 tab 10/12/19 Cefuroxime [Ceftin] 250 mg PO BID 3 Days #6 tab 01/16/20 Nystatin 100,000 Unit/gm Powd 1 applic TOPICAL TID #15 g 01/16/20 [Mycostatin Powder] Cephalexin [Keflex] 500 mg PO Q6HR #28 cap 03/04/20 predniSONE [Deltasone] 40 mg PO DAILY #8 tab 03/04/20 Allergies Allergy/AdvReac Type Severity Reaction Status Date / Time adhesive tape Allergy Rash/Hives Verified 03/04/20 13:48 Influenza Virus Vaccines Allergy "MAKES HER Verified 03/04/20 13:48 FEEL SICK" Sulfa (Sulfonamide Allergy Rash/Hives Verified 03/04/20 13:48 Antibiotics) amoxicillin trihydrate AdvReac Diarrhea Verified 03/04/20 13:48 [From Augmentin] ciprofloxacin [From Cipro] AdvReac Unknown Verified 03/04/20 13:48 metronidazole [From Flagyl] AdvReac Unknown Verified 03/04/20 13:48 potassium clavulanate AdvReac Diarrhea Verified 03/04/20 13:48 [From Augmentin] quinidine AdvReac BLOOD CLOTS Verified 03/04/20 13:48 Review of Systems ROS Statement: Those systems with pertinent positive or pertinent negative responses have been documented in the HPI. ROS Other: All systems not noted in ROS Statement are negative. Past Medical History Past Medical History: Atrial Fibrillation, Atrial Flutter, GERD/Reflux, Hyperlipidemia, Hypertension, Mitral Valve Prolapse (MVP), Rheumatoid Arthritis (RA), Thyroid Disorder Additional Past Medical History / Comment(s): OTHER HX: 03/06/14, 03/30/14, 07/03/14, 07/29/14 with CDIFF colitis, HYPOTHYROID, MVP, urinary incontinence, PROLAPSED MITRAL VALVE- NO PROBLEMS FOR 30 YRS.anemia -requiring blood transfusion History of Any Multi-Drug Resistant Organisms: C-DIFF Date of last positivie culture/infection: 2015 MDRO Source:: Stool Past Surgical History: Adenoidectomy, Cholecystectomy, Hysterectomy, Joint Replacement, Orthopedic Surgery, Tonsillectomy Additional Past Surgical History / Comment(s): 02/18/16 total R hip arthroplasty. Other surgical HX: BILATERAL KNEE REPLACEMENT (2003-RIGHT & 2005 - LEFT); LOWER LUMBAR LAMINECTOMYL4-L5 (2007); LEFT HIP REPLACEMENT (2012); RIGHT SHOULDER REPLACEMENT (2008), left total knee arthroplasty revision. Bilateral cataracts with lens implants. FECAL TRASPLANT TX FOR C-DIFF three times.cataracts-lens implants hemmoroid removed Past Anesthesia/Blood Transfusion Reactions: No Reported Reaction Additional Past Anesthesia/Blood Transfusion Reaction / Comment(s): blood transfusion in past no reactions Past Psychological History: Anxiety, Depression Additional Psychological History / Comment(s): Pt resides in her own home. Her nephew who is very ill stays with pt. She uses a walker to ambulate. She has a nebulizer, She is able to drive. Smoking Status: Current every day smoker Past Alcohol Use History: None Reported Additional Past Alcohol Use History / Comment(s): Patient has smoked since 1953- 5 cig per day.No alcohol use or abuse. No street drug use no marijuana use. Past Drug Use History: None Reported - Past Family History Mother Family Medical History: Cancer Additional Family Medical History / Comment(s): Mother at age 60 with history of emphysema and lung cancer. Father Family Medical History: CVA/TIA Additional Family Medical History / Comment(s): Father at age 74 with problems with his larynx. Sister(s) Family Medical History: Unable to Obtain Daughter(s) Family Medical History: COPD, Myocardial Infarction ([place]) Additional Family Medical History / Comment(s): Mother at age 60 yrs of emphysema/lung CA Son(s) Family Medical History: Myocardial Infarction ([place]) Additional Family Medical History / Comment(s): Father at age 74yrs with "CVA of his larynx" General Exam - General Exam Comments Initial Comments: GENERAL: Patient is well-developed and well-nourished. Patient is nontoxic and well- hydrated and is in mild distress. ENT: Neck is soft and supple. No significant lymphadenopathy is noted. Oropharynx is clear. Moist mucous membranes. Neck has full range of motion without eliciting any pain. EYES: The sclera were anicteric and conjunctiva were pink and moist. Extraocular movements were intact and pupils were equal round and reactive to light. Eyelids were unremarkable. PULMONARY: Unlabored respirations. Good breath sounds bilaterally. No audible rales rhonchi or wheezing was noted. CARDIOVASCULAR: There is a regular rate and rhythm without any murmurs gallops or rubs. ABDOMEN: Soft and nontender with normal bowel sounds. SKIN: Skin is clear with no lesions or rashes and otherwise unremarkable. NEUROLOGIC: Patient is alert and oriented x3. Cranial nerves II through XII are grossly in tact. Motor and sensory are also intact. Normal speech, volume and content. Symmetrical smile. MUSCULOSKELETAL: Normal extremities with adequate strength and full range of motion. LYMPHATICS: No significant lymphadenopathy is noted PSYCHIATRIC: Normal psychiatric evaluation. Course Vital Signs 03/04/20 13:44 Temperature 99.2 F Pulse Rate 79 Respiratory 18 Rate Blood Pressure 115/53 O2 Sat by Pulse 96 Oximetry Medical Decision Making - Medical Decision Making Patient's chest x-ray showed no acute abnormality. Patient's x-ray of the lumbar spine showed no acute abnormality. Patient had a urinary tract infectious I gave her 1 g of Rocephin emergency part. Patient received prednisone and Toradol as well as Tylenol and after that she was able to ambulate with much less pain. Patient was comfortable going home at this time. - Lab Data Lab Results 03/04/20 Range/Units 14:59 Urine Color Light Yellow Urine Appearance Cloudy H (Clear) Urine pH 6.5 (5.0-8.0) Ur Specific [place] 1.019 (1.001-1.035) Urine Protein Trace H (Negative) Urine Glucose (UA) Negative (Negative) Urine Ketones 1+ H (Negative) Urine Blood Large H (Negative) Urine Nitrite Negative (Negative) Urine Bilirubin Negative (Negative) Urine Urobilinogen <2.0 (<2.0) mg/dL Ur Leukocyte Esterase Large H (Negative) Urine RBC 5 (0-5) /hpf Urine WBC 134 H (0-5) /hpf Ur Squamous Epith Cells 9 H (0-4) /hpf Amorphous Sediment Rare H (None) /hpf Urine Bacteria Many H (None) /hpf Urine Mucus Rare H (None) /hpf Disposition Clinical Impression: Urinary tract infection, Sciatica Disposition: HOME SELF-CARE Condition: Good Prescriptions: predniSONE [Deltasone] 40 mg PO DAILY #8 tab Cephalexin [Keflex] 500 mg PO Q6HR #28 cap Is patient prescribed a controlled substance at d/c from ED?: No Referrals: Franklyn Marino DO [Primary Care Provider] - 1-2 days Time of Disposition: 16:58
[2020-03-04] MEDS ORDERED: LIDOCAINE 5% PATCH TOPICAL STA (13:55)
[2020-03-04 15:11] LABS: Amorphous Sediment,Urine Rare /hpf; Appearance,Urine Cloudy (Clear); Bacteria,Urine Many /hpf; Bilirubin,Urine Negative (Negative); Blood,Urine Large (Negative); Color,Urine Light Yellow; Glucose,Urine (UA) Negative (Negative); Ketones,Urine 1+ (Negative); Leukocyte Esterase,Urine Large (Negative); Mucus,Urine Rare /hpf; Nitrite,Urine Negative (Negative); PH, Urine 6.5 (5.0-8.0); Protein,Urine Trace (Negative); RBC,Urine 5 /hpf (0-5); Specific Gravity,Urine 1.019 (1.001-1.035); Squamous Epithelial Cell,Urine 9 /hpf (0-4); Urobilinogen,Urine <2.0 mg/dL (<2.0); WBC,Urine 134 /hpf (0-5)
--- NOTE | 2020-03-04 15:52 | XR ---
EXAMINATION TYPE: XR chest 2V DATE OF EXAM: 03/04/2020 CLINICAL HISTORY: Difficulty breathing . History of melanoma. TECHNIQUE: Frontal and lateral view of the chest. COMPARISON: 06/29/2019 chest radiograph FINDINGS: Redemonstrated large hiatal hernia. The cardiac silhouette is again prominent. Pulmonary v asculature is normal. There is no focal air space opacity, pleural effusion, or pneumothorax seen. No displaced osseous fracture. Right shoulder arthroplasty incompletely visualized. IMPRESSION: No acute cardiopulmonary process.
--- NOTE | 2020-03-04 15:56 | XR ---
EXAMINATION TYPE: XR lumbosacral spine min 4V DATE OF EXAM: 03/04/2020 CLINICAL HISTORY: Back pain radiating down leg, previous laminectomy TECHNIQUE: Frontal, lateral, and oblique images of the lumbar spine are obtained. COMPARISON: 05/22/2011 lumbar radiograph FINDINGS: There is redemonstrated dextrocurvature of the lumbar spine and L2-S1 superior bilateral p osterior rods and transpedicular screws with interbody spacer devices, and laminectomy changes. There is significantly decreased osseous mineralization. Unchanged endplate sclerosis of L1 anteriorly laura pilar 2011. L1-L2 vacuum disc phenomenon. Osteophytosis. Vertebral body heights are normal. IMPRESSION: 1. Postsurgical changes from L2 through S1 with no evidence of hardware fracture. 2. Vertebral body heights are normal. 3. Decreased osseous mineralization. If there is concern for acute fracture, CT may be of benefit.
[2020-03-04] MEDS ORDERED: cefTRIAXone 1,000 MG VIAL (IM USE) IM STA (16:10)
[2020-03-04 17:27] VITALS: BP 124/82; PULSE 72; TEMP 98
[2020-03-05] MEDS ORDERED: LIDOCAINE 5% PATCH TOPICAL SCH (09:00)
== END 2020-03-04 17:27 | disposition home or self-care (01) ==
LOC: EC 13:38
DX: M54.30 Sciatica, unspecified side (principal); N39.0 Urinary tract infection, site not specified; F41.9 Anxiety disorder, unspecified; F32.9 Major depressive disorder, single episode, unspecified; F17.200 Nicotine dependence, unspecified, uncomplicated; I10 Essential (primary) hypertension; E03.9 Hypothyroidism, unspecified; Z79.890 Hormone replacement therapy; Z79.899 Other long term (current) drug therapy; Z98.42 Cataract extraction status, left eye; Z98.41 Cataract extraction status, right eye; Z96.1 Presence of intraocular lens; Z96.643 Presence of artificial hip joint, bilateral; Z96.653 Presence of artificial knee joint, bilateral; Z96.611 Presence of right artificial shoulder joint; Z88.1 Allergy status to other antibiotic agents; Z88.2 Allergy status to sulfonamides; Z88.7 Allergy status to serum and vaccine; Z88.8 Allergy status to other drugs, medicaments and biological substances; Z91.048 Other nonmedicinal substance allergy status
CPT/HCPCS: 81001; 87086; 72110; 71046; 99284; 96372 ×2; J0696; J1885; J7512

== ENCOUNTER → 2020-05-23 | Outpatient (CLI) | payer MEDICARE ==
--- NOTE | 2020-05-23 19:08 | MR ---
EXAMINATION TYPE: MR brain wo/w con DATE OF EXAM: 05/23/2020 COMPARISON: CT brain 10/01/2015 HISTORY: Hx of cancer, weakness TECHNIQUE: Multiplanar, multisequence images of the brain and brainstem is performed without and with IV contras t, utilizing 7.5 mL intravenous Gadavist . FINDINGS: Diffusion weighted images demonstrate no evidence of a recent infarct or other diffusion ab normality. There is no extra-axial fluid collection. Periventricular and subcortical, pericallosal c onfluent and scattered hyperintensities are present on inversion recovery T2-weighted sequences. The ventricular system and cisternal spaces are normal in size and appearance. The brain volume is age a ppropriate, there is age-related atrophy. Midline structures demonstrate normal morphology. The craniocervical junction appears within normal limits. Post contrast images demonstrate no abnormal enhancement. The dural venous sinuses appear pa tent. The visualized sinuses are clear and the globes are intact. IMPRESSION: Age-related changes of atrophy and chronic small vessel ischemia.
== END | disposition home or self-care (01) ==
LOC: RADMRIMAIN 12:55
PROVIDERS: ATTEND Family Medicine
DX: G31.1 Senile degeneration of brain, not elsewhere classified (principal); I67.82 Cerebral ischemia; C21.1 Malignant neoplasm of anal canal; Z88.1 Allergy status to other antibiotic agents; Z88.2 Allergy status to sulfonamides; Z88.8 Allergy status to other drugs, medicaments and biological substances
CPT/HCPCS: 70553; A9585; 36415; 71260; 74177; 80053

== ENCOUNTER → 2020-05-23 | Outpatient (CLI) | payer MEDICARE ==
[2020-05-23 14:17] LABS: Albumin 4.2 g/dL (3.5-5.0); Calcium 9.4 mg/dL (8.4-10.2); Potassium 4.6 mmol/L (3.5-5.1); Total Bilirubin 0.3 mg/dL (0.2-1.3)
--- NOTE | 2020-05-23 15:06 | CT ---
EXAMINATION TYPE: CT ChestAbdPelvis w con DATE OF EXAM: 05/23/2020 COMPARISON: 01/15/2020 HISTORY: Malignant neoplasm of anal canal. CT DLP: 1112.1 mGycm CONTRAST: CT scan of the chest, abdomen and pelvis is performed with Oral Contrast and with IV Contrast, patien t injected with 100 mL of Isovue M300. CT Chest: LUNGS: The lungs are clear and free of infiltrate or atelectasis. No pulmonary nodule or mass is det ected. No pleural effusion or CT evidence of interstitial lung disease. MEDIASTINUM: Thoracic aorta is of normal caliber. The heart is not enlarged. No evidence for media stinal mass or adenopathy. HILAR STRUCTURES: No evidence for mass. No hilar adenopathy is appreciated. OTHER: Large fixed hiatal hernia. CONTRAST CT ABDOMEN AND PELVIS FINDINGS: LIVER/GB: Cholecystectomy, place. No space occupying hepatic lesion. Biliary tree is of normal calibe r. PANCREAS: No inflammation. No distinct mass. SPLEEN: No splenic enlargement. No lesion seen. ADRENALS: No nodule. No thickening. KIDNEYS/BLADDER: No hydronephrosis. No nephrolithiasis. No distinct renal mass. BOWEL: Normal appendix. Normal bowel caliber. No inflammation. GENITAL ORGANS: No gross abnormality. LYMPH NODES: No greater than 1cm abdominal or pelvic lymph nodes are appreciated. AORTA: No significant abnormality. OSSEOUS STRUCTURES: Bilateral hip prostheses with extensive streak artifact seen. Postsurgical change s of lumbar laminectomy. OTHER: No significant additional abnormality is seen. IMPRESSION: 1. No evidence for recurrent or residual disease. No evidence for metastatic disease.
== END | disposition home or self-care (01) ==
LOC: RADCTMAIN 13:09
PROVIDERS: ATTEND Family Medicine
DX: C21.1 Malignant neoplasm of anal canal (principal)
CPT/HCPCS: 80053; 71260; 74177; 36415; Q9967 ×2

== ENCOUNTER 2020-07-17 11:27 | Observation (INO) | payer MEDICARE ==
--- NOTE | 2020-07-17 12:54 | ED ---
Chest Pain HPI - General Chief Complaint: Chest Pain Stated Complaint: chest pain Time Seen by Provider: 07/17/20 12:37 Source: EMS Mode of arrival: EMS Limitations: no limitations - History of Present Illness Initial Comments: 80-year-old female with past history of A. fib, hypertension, mitral valve prolapse presents emergency room with reported chest pain. Reportedly located over the left side of her chest which radiates through to her back. States the pain is intermittent and sharp. Worse with movement and deep breath. Patient denies any previous cardiac or pulmonary history. She is a smoker however denies history of COPD. States she recently got home from a train ride from [place]. She is on the tray for total 5 days. Denies history of DVT or PE. No lower trauma swelling. Does admit to associated shortness of breath. No cough, fevers or chills. No sick contacts with similar symptoms. Reports last stress testing was normal. Denies ripping or tearing sensation. No other alleviating, precipitating or modifying factors - Related Data Home Medications Medication Instructions Recorded Confirmed Citalopram Hydrobromide [CeleXA] 40 mg PO DAILY 05/12/18 07/17/20 ALPRAZolam [Xanax] 2 mg PO Q8H PRN 06/06/18 07/17/20 Levothyroxine Sodium [Synthroid] 50 mcg PO DAILY 06/06/18 07/17/20 traZODone HCL [Desyrel] 200 mg PO HS 11/09/18 07/17/20 oxyCODONE-APAP 10-325MG [Percocet 1 tab PO BID 06/29/19 07/17/20 10-325 mg] Potassium Chloride ER [K-Dur 20] 20 meq PO BID 07/17/20 07/17/20 atenoloL [Tenormin] 25 mg PO HS 07/17/20 07/17/20 Previous Rx's Medication Instructions Recorded methylPREDNISolone Dose Pack 4 mg PO DIRECTED #21 package 07/18/20 [Medrol Dose Pack] Allergies Allergy/AdvReac Type Severity Reaction Status Date / Time adhesive tape Allergy Rash/Hives Verified 07/17/20 16:14 Influenza Virus Vaccines Allergy "MAKES HER Verified 07/17/20 16:14 FEEL SICK" Sulfa (Sulfonamide Allergy Rash/Hives Verified 07/17/20 16:14 Antibiotics) amoxicillin trihydrate AdvReac Diarrhea Verified 07/17/20 16:14 [From Augmentin] ciprofloxacin [From Cipro] AdvReac Unknown Verified 07/17/20 16:14 metronidazole [From Flagyl] AdvReac Unknown Verified 07/17/20 16:14 potassium clavulanate AdvReac Diarrhea Verified 07/17/20 16:14 [From Augmentin] quinidine AdvReac BLOOD CLOTS Verified 07/17/20 16:14 Review of Systems ROS Statement: Those systems with pertinent positive or pertinent negative responses have been documented in the HPI. ROS Other: All systems not noted in ROS Statement are negative. EKG Findings - EKG Comments: EKG Findings:: EKG demonstrates sinus rhythm at rate of 65. SC interval 226. QRS 78. QTC 445. J-point elevation in the inferior and lateral leads. Mild ST depression 1 and aVL. Past Medical History Past Medical History: Atrial Fibrillation, Atrial Flutter, GERD/Reflux, Hyperlipidemia, Hypertension, Mitral Valve Prolapse (MVP), Rheumatoid Arthritis (RA), Thyroid Disorder Additional Past Medical History / Comment(s): OTHER HX: 03/06/14, 03/30/14, 07/03/14, 07/29/14 with CDIFF colitis, HYPOTHYROID, MVP, urinary incontinence, PROLAPSED MITRAL VALVE- NO PROBLEMS FOR 30 YRS.anemia -requiring blood transfusion History of Any Multi-Drug Resistant Organisms: C-DIFF Date of last positivie culture/infection: 2015 MDRO Source:: Stool Past Surgical History: Adenoidectomy, Cholecystectomy, Hysterectomy, Joint Replacement, Orthopedic Surgery, Tonsillectomy Additional Past Surgical History / Comment(s): 02/18/16 total R hip arthroplasty. Other surgical HX: BILATERAL KNEE REPLACEMENT (2003-RIGHT & 2005 - LEFT); LOWER LUMBAR LAMINECTOMYL4-L5 (2007); LEFT HIP REPLACEMENT (2012); RIGHT SHOULDER REPLACEMENT (2008), left total knee arthroplasty revision. Bilateral cataracts with lens implants. FECAL TRASPLANT TX FOR C-DIFF three times.cataracts-lens implants hemmoroid removed Past Anesthesia/Blood Transfusion Reactions: No Reported Reaction Additional Past Anesthesia/Blood Transfusion Reaction / Comment(s): blood transfusion in past no reactions Past Psychological History: Anxiety, Depression Smoking Status: Current every day smoker Past Alcohol Use History: None Reported Past Drug Use History: None Reported - Past Family History Mother Family Medical History: Cancer Additional Family Medical History / Comment(s): Mother at age 60 with history of emphysema and lung cancer. Father Family Medical History: CVA/TIA Additional Family Medical History / Comment(s): Father at age 74 with problems with his larynx. Sister(s) Family Medical History: Unable to Obtain Daughter(s) Family Medical History: COPD, Myocardial Infarction ([place]) Additional Family Medical History / Comment(s): Mother at age 60 yrs of emphysema/lung CA Son(s) Family Medical History: Myocardial Infarction ([place]) Additional Family Medical History / Comment(s): Father at age 74yrs with "CVA of his larynx" General Exam Limitations: no limitations General appearance: alert, in no apparent distress Head exam: Present: atraumatic, normocephalic, normal inspection Eye exam: Present: normal appearance, PERRL, EOMI. Absent: scleral icterus, conjunctival injection, periorbital swelling ENT exam: Present: normal exam, mucous membranes moist Neck exam: Present: normal inspection. Absent: tenderness, meningismus, lymphadenopathy Respiratory exam: Present: normal lung sounds bilaterally. Absent: respiratory distress, wheezes, rales, rhonchi, stridor Cardiovascular Exam: Present: regular rate, normal rhythm, normal heart sounds. Absent: systolic murmur, diastolic murmur, rubs, gallop, clicks GI/Abdominal exam: Present: soft, normal bowel sounds. Absent: distended, tenderness, guarding, rebound, rigid Extremities exam: Present: normal inspection, full ROM, normal capillary refill. Absent: tenderness, pedal edema, joint swelling, calf tenderness Back exam: Present: normal inspection Neurological exam: Present: alert, oriented X3, CN II-XII intact Psychiatric exam: Present: normal affect, normal mood Skin exam: Present: warm, dry, intact, normal color. Absent: rash Course Vital Signs 07/17/20 07/17/20 07/17/20 11:30 14:22 16:56 Temperature 98.0 F Pulse Rate 64 66 65 Respiratory 16 16 16 Rate Blood Pressure 116/62 119/61 128/76 O2 Sat by Pulse 98 98 100 Oximetry 07/17/20 07/17/20 07/17/20 18:41 20:56 21:45 Temperature 98.7 F Pulse Rate 65 65 64 Respiratory 16 20 18 Rate Blood Pressure 97/54 109/63 98/55 O2 Sat by Pulse 100 99 98 Oximetry 07/17/20 07/18/20 07/18/20 22:45 00:00 03:15 Temperature 98.1 F 97.9 F Pulse Rate 60 55 L 57 L Respiratory 20 20 20 Rate Blood Pressure 98/61 91/56 99/59 O2 Sat by Pulse 96 98 95 Oximetry 07/18/20 07/18/20 07/18/20 05:57 08:57 12:11 Temperature 98.0 F 98.2 F 98.8 F Pulse Rate 59 L 60 58 L Respiratory 20 18 18 Rate Blood Pressure 88/57 100/74 89/53 O2 Sat by Pulse 95 98 97 Oximetry 07/18/20 13:50 Temperature 98.6 F Pulse Rate 62 Respiratory 18 Rate Blood Pressure 89/54 O2 Sat by Pulse 100 Oximetry Chest Pain MDM - MDM Upon arrival patient is placed into room 18. Thorough history and physical exam was performed. IV is established. Laboratory studies were conducted patient for chest x-ray. Laboratory studies reviewed and d-dimer is 5.1. Patient is sent for a CT of her chest which fails to demonstrate a PE. There are numerous pulmonary nodules suspicious for metastatic disease. These results are discussed with the patient. I also spoke with Dr. Dr. Snell. Patient will be admitted for serial troponins, cardiology evaluation and pulmonology evaluation. Patient was given aspirin and nitro without improvement in her chest pain. Patient is currently awaiting a bed on the floor. Disposition Clinical Impression: Chest pain, Lung nodules Disposition: ADMITTED IP TO THIS HOSP Condition: Good Is patient prescribed a controlled substance at d/c from ED?: No Decision to Admit Reason: Admit from EC Decision Date: 07/17/20 Decision Time: 16:57
[2020-07-17 13:10] LABS: Basophils % (A) 0 %; Eosinophils # (A) 0.1 k/uL (0-0.7); Eosinophils % (A) 2 %; Hypochromasia Marked; Lymphocytes # (A) 0.5 k/uL (1.0-4.8); Lymphocytes % (A) 9 %; MCH 29.5 pg (25.0-35.0); MCHC 32.2 g/dL (31.0-37.0); MCV 91.4 fL (80.0-100.0); Mean Platelet Volume 7.3; Monocytes # (A) 0.3 k/uL (0-1.0); Monocytes % (A) 5 %; Neutrophils # (A) 5.2 k/uL (1.3-7.7); Neutrophils % (A) 84 %; Platelet Count 332 k/uL (150-450); Poikilocytosis Slight; RBC 3.06 m/uL (3.80-5.40); WBC 6.2 k/uL (3.8-10.6)
[2020-07-17 13:16] LABS: Albumin 3.5 g/dL (3.5-5.0); Calcium 9.2 mg/dL (8.4-10.2); Magnesium 1.7 mg/dL (1.6-2.3); Potassium 4.5 mmol/L (3.5-5.1); Total Bilirubin 0.3 mg/dL (0.2-1.3); Total Protein 5.9 g/dL (6.3-8.2)
[2020-07-17 13:37] LABS: INR 0.9 (<1.2)
[2020-07-17 13:39] LABS: D-Dimer 5.1 mg/L FEU (<0.60); Partial Thromboplastin Time 19.1 sec (22.0-30.0)
--- NOTE | 2020-07-17 14:19 | XR ---
EXAMINATION TYPE: XR chest 2V DATE OF EXAM: 07/17/2020 COMPARISON: 03/04/2020 TECHNIQUE: PA and lateral views submitted. HISTORY: Shortness of breath and chest pain FINDINGS: The lungs are clear and there is no pneumothorax, pleural effusion, or focal pneumonia. Diffuse inte rstitial pattern. Heart is enlarged. There is a large hiatal hernia. Biapical pleural thickening. Art hropathy of the shoulders with diffuse osteopenia. Degenerative changes of the spine. Mild wedge defo rmities lower thoracic spine. Postsurgical change involving the lumbar spine. IMPRESSION: 1. COPD with large hiatal hernia. Correlate for chronic interstitial lung disease otherwise consider interstitial pneumonitis..
--- NOTE | 2020-07-17 15:52 | CT ---
EXAMINATION TYPE: CT chest angio for PE DATE OF EXAM: 07/17/2020 COMPARISON: 05/23/2020 HISTORY: high d dimer CT DLP: 368.4 mGycm CONTRAST: CT chest with contrast and 3D reconstruction with MIP imaging is performed with IV Contrast, patient injected with 100 mL of Isovue 370. Contrast-enhanced CT of the chest was performed through the course of the pulmonary arteries with shelia g and mediastinal window settings submitted. 3D reconstruction with MIP imaging was also performed. PULMONARY ARTERIES: The pulmonary arteries and their major tributaries are patent. I do not see zaid dence for sizable filling defect to suggest pulmonary embolic process. LUNGS: The lungs are clear and free of infiltrate. There are multiple new small pulmonary nodules fletcher ntified within both lung mattson the largest within the left lower lobe measures 8 mm and the largest within the right upper lobe measures 8.5 mm. Suspect metastatic disease. Small left effusion and righ t basilar compressive atelectasis. No pleural effusion. MEDIASTINUM: Ectasia of the thoracic aorta. The heart is enlarged. Large fixed hiatal hernia. No evid ence for mediastinal mass. No mediastinal lymph nodes greater than 1cm. HILAR STRUCTURES: No evidence for mass. No hilar lymph nodes greater than 1 cm. UPPER ABDOMEN: No significant abnormality is seen. IMPRESSION: 1. No evidence for Pulmonary embolism at this time. 2. Multiple new small pulmonary nodules suspicious for metastatic disease.
[2020-07-17] MEDS ORDERED: ASPIRIN 81 MG PO STA (16:54)
[2020-07-17] MEDS ORDERED: NITROGLYCERIN SL TABS 0.4 MG TAB SUBLINGUAL STA (16:55)
[2020-07-17] MEDS ORDERED: NALOXONE 0.4 MG/ML 1 ML VIAL IV PRN (16:57)
[2020-07-17] MEDS: HYDROmorphone 0.5 MG/0.5 ML SYRINGE IVP PRN (17:46)
[2020-07-17] MEDS ORDERED: ALPRAZolam 0.5 MG TAB PO PRN (20:55)
[2020-07-17] MEDS ORDERED: atenoloL 25 MG TAB PO SCH (21:00)
--- NOTE | 2020-07-17 21:14 | P.HPIM ---
History of Present Illness H&P Date: 07/17/20 Chief Complaint: Chest pain, suspicion for pulmonary embolism, recurrent angina, multiple vilma HISTORY OF PRESENT ILLNESS: 80-year-old female one of Dr. Marino patient with past medical history of A. fib, recurrent C. diff with chronic diarrhea, CVA, GERD, hypertension, chronic lower back pain and history of perforated bowel post resection in the past. Patient had long-standing history of C. diff along with chronic iron deficiency anemia with multiple episode of GI bleed and multiple EGD and colonoscopy. 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 Ended up coming to demurs department her laboratory value shows her hemoglobin to be 9.0) Baseline normal white blood cell and platelet. Her d-dimer was 5.10 and with normal kidney function patient ended up going for CT of the lung came back consistent with multiple nodular in the lung tissue decent size highly suspicious for malignancy or metastasis. Covid was negative for the time no sign of pulmonary embolism patient will be admitted to the hospital with see cardiology CK with troponin 3 will be done also will have pulmonary seen patient to clarify those nodular compared to the loss CAT scan she had before. REVIEW OF SYSTEMS: Constitutional: No fever, no chills, no night sweats. No weight change. No weakness, fatigue or lethargy. No daytime sleepiness. EENT: No headache. No blurred vision or double vision, no loss of vision. No loss of Hearing, no ringing in the ears, no dizziness. No nasal drainage or congestion. No epistaxis. No sore throat. Lungs: Mild shortness of breath, no cough, no sputum production. No wheezing. Cardiovascular: Positive chest pain, no lower extremity edema. No palpitations. No paroxysmal nocturnal dyspnea. No orthopnea. No lightheadedness or dizzines s. No syncopal episodes. Abdominal: No abdominal pain. No nausea, vomiting. No diarrhea. No cons tipation. No bloody or tarry stools.. No loss of appetite. Genitourinary: No dysuria, increased frequency, urgency. No urinary retention. Musculoskeletal: No myalgias. No muscle weakness, no gait dysfunction, no frequent falls. No back pain. No neck pain. Integumentary: No wounds, no lesions. No rash or pruritus. No unusual bruising. No change in hair or nails. Neurologic: No aphasia. No facial droop. No change in mentation. No head injury. No headache. No paralysis. No paresthesia. Psychiatric: No depression. No anxiety. No mood swings. Endocrine: No abnormal blood sugars. No weight change. No excessive sweating or thirst. No cold intolerance. 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 FAMILY HISTORY: Her mother dying at age 60 from lung cancer and emphysema, father dying at age 74 from larynx cancer, patient had sibling with history of CAD, 3 children one of them adopted diet age 60 from CAD Physical examination: Gen: This is a 80-year-old female laying in bed looks concern does not look in any respiratory distress at the time and is not showing any sign of pain either. HEENT: Head is atraumatic, normocephalic. Pupils equal, round. Sclerae is anicteric. NECK: Supple. No JVD. No lymphadenopathy. No thyromegaly. LUNGS: Clear to auscultation. No wheezes or rhonchi. No intercostal retractions. HEART: Regular rate and rhythm. No murmur. ABDOMEN: Soft. Bowel sounds are present. No masses. No tenderness. EXTREMITIES: No pedal edema. No calf tenderness. NEUROLOGICAL: Patient is awake, alert and oriented x3. Cranial nerves 2 through 12 are grossly intact. Assessment and plan: 1. Atypical chest pain: First troponin was negative, her PE workup came back negative this time the patient is known to have history of cardiac disease admit patient to the Hospital CK troponin 3 we'll consult cardiology repeat echocardiogram this time 2. COPD: Resume patient's inhaler rescue nebulizer on an as-needed basis continue oxygen to keep pulse ox above 90 percentile 3. A. fib with RVR: Patient could not tolerate anticoagulation with recurrent GI bleed and anemia she still on atenolol pulse rates under control 4. Hypothyroidism: Continue levothyroxine 50 g daily 5. Chronic IBS and colitis with perforated bowel post multiple surgery patient is doing better lately and since the diarrhea and C. diff has been gone seeing much better. 6. Chronic depression: Remain on Celexa 40 mg a day along with trazodone 7. Chronic kidney disease: Stage II has been stable continue hydration 8. Mild fluid overload continue diuretics if needed. 9 multiple lung nodular: Not clear etiology but suspicious for malignancy we'll consult pulmonary based on the result either to watch the number over time 10. GI prophylaxis: Continue Pepcid or switch patient to pantoprazole. 11. COVID-19 testing. Were negative Patient will be admitted to the hospital for a minimum of 2 night stay. Past Medical History Past Medical History: Atrial Fibrillation, Atrial Flutter, GERD/Reflux, Hyperlipidemia, Hypertension, Mitral Valve Prolapse (MVP), Rheumatoid Arthritis (RA), Thyroid Disorder Additional Past Medical History / Comment(s): OTHER HX: 03/06/14, 03/30/14, 07/03/14, 07/29/14 with CDIFF colitis, HYPOTHYROID, MVP, urinary incontinence, PROLAPSED MITRAL VALVE- NO PROBLEMS FOR 30 YRS.anemia -requiring blood transfusion History of Any Multi-Drug Resistant Organisms: C-DIFF Date of last positivie culture/infection: 2015 MDRO Source:: Stool Past Surgical History: Adenoidectomy, Cholecystectomy, Hysterectomy, Joint Replacement, Orthopedic Surgery, Tonsillectomy Additional Past Surgical History / Comment(s): 02/18/16 total R hip arthroplasty. Other surgical HX: BILATERAL KNEE REPLACEMENT (2003-RIGHT & 2006 - LEFT); LOWER LUMBAR LAMINECTOMYL4-L5 (2007); LEFT HIP REPLACEMENT (2012); RIGHT SHOULDER REPLACEMENT (2008), left total knee arthroplasty revision. Bilateral cataracts with lens implants. FECAL TRASPLANT TX FOR C-DIFF three times.cataracts-lens implants hemmoroid removed Past Anesthesia/Blood Transfusion Reactions: No Reported Reaction Additional Past Anesthesia/Blood Transfusion Reaction / Comment(s): blood transfusion in past no reactions Past Psychological History: Anxiety, Depression Smoking Status: Current every day smoker Past Alcohol Use History: None Reported Past Drug Use History: None Reported - Past Family History Mother Family Medical History: Cancer Additional Family Medical History / Comment(s): Mother at age 60 with history of emphysema and lung cancer. Father Family Medical History: CVA/TIA Additional Family Medical History / Comment(s): Father at age 74 with problems with his larynx. Sister(s) Family Medical History: Unable to Obtain Daughter(s) Family Medical History: COPD, Myocardial Infarction ([place]) Additional Family Medical History / Comment(s): Mother at age 60 yrs of emphysema/lung CA Son(s) Family Medical History: Myocardial Infarction ([place]) Additional Family Medical History / Comment(s): Father at age 74yrs with "CVA of his larynx" Medications and Allergies Home Medications Medication Instructions Recorded Confirmed Type Citalopram Hydrobromide [CeleXA] 40 mg PO DAILY 05/12/18 07/17/20 History ALPRAZolam [Xanax] 2 mg PO Q8H PRN 06/06/18 07/17/20 History Levothyroxine Sodium [Synthroid] 50 mcg PO DAILY 06/06/18 07/17/20 History traZODone HCL [Desyrel] 200 mg PO HS 11/09/18 07/17/20 History oxyCODONE-APAP 10-325MG [Percocet 1 tab PO BID 06/29/19 07/17/20 History 10-325 mg] Potassium Chloride ER [K-Dur 20] 20 meq PO BID 07/17/20 07/17/20 History atenoloL [Tenormin] 25 mg PO HS 07/17/20 07/17/20 History Allergies Allergy/AdvReac Type Severity Reaction Status Date / Time adhesive tape Allergy Rash/Hives Verified 07/17/20 16:14 Influenza Virus Vaccines Allergy "MAKES HER Verified 07/17/20 16:14 FEEL SICK" Sulfa (Sulfonamide Allergy Rash/Hives Verified 07/17/20 16:14 Antibiotics) amoxicillin trihydrate AdvReac Diarrhea Verified 07/17/20 16:14 [From Augmentin] ciprofloxacin [From Cipro] AdvReac Unknown Verified 07/17/20 16:14 metronidazole [From Flagyl] AdvReac Unknown Verified 07/17/20 16:14 potassium clavulanate AdvReac Diarrhea Verified 07/17/20 16:14 [From Augmentin] quinidine AdvReac BLOOD CLOTS Verified 07/17/20 16:14 Physical Exam Vitals: Vital Signs Temp Pulse Resp BP Pulse Ox 07/17/20 18:41 65 16 97/54 100 07/17/20 16:56 65 16 128/76 100 04/07/21 14:22 66 16 119/61 98 07/17/20 11:30 98.0 F 64 16 116/62 98 Intake and Output 07/17/20 07/17/20 07/17/20 06:59 14:59 22:59 Other: Weight 77.111 kg Results CBC & Chem 7: 07/17/20 11:39 07/17/20 11:39 Labs: Abnormal Lab Results - Last 24 Hours (Table) 07/17/20 07/17/20 07/17/20 Range/Units 11:39 11:39 11:39 RBC 3.06 L (3.80-5.40) m/uL Hgb 9.0 L (11.4-16.0) gm/dL Hct 28.0 L (34.0-46.0) % RDW 16.0 H (11.5-15.5) % Lymphocytes # 0.5 L (1.0-4.8) k/uL APTT 19.1 L (22.0-30.0) sec D-Dimer 5.10 H (<0.60) mg/L FEU Chloride 111 H (98-107) mmol/L Carbon Dioxide 20 L (22-30) mmol/L Alkaline Phosphatase 132 H (38-126) U/L Total Protein 5.9 L (6.3-8.2) g/dL
[2020-07-17] MEDS: traZODone HCL 100 MG TAB PO SCH (21:40)
[2020-07-17] MEDS: oxyCODONE-APAP 10-325MG 1 EACH TAB PO SCH (21:41)
[2020-07-17] MEDS: POTASSIUM CHLORIDE ER 20 MEQ TAB.ER PO SCH (21:42)
[2020-07-18] MEDS: HYDROmorphone 0.5 MG/0.5 ML SYRINGE IVP PRN ×3 (03:09→11:18)
[2020-07-18] MEDS ORDERED: LEVOTHYROXINE 50 MCG TAB PO SCH (06:30)
[2020-07-18 09:00] VITALS: RESP 18
[2020-07-18] MEDS: oxyCODONE-APAP 10-325MG 1 EACH TAB PO SCH (09:00)
[2020-07-18] MEDS ORDERED: CITALOPRAM HYDROBROMIDE 20 MG TAB PO SCH (09:00)
[2020-07-18] MEDS: traZODone HCL 100 MG TAB PO SCH (09:01)
[2020-07-18] MEDS: POTASSIUM CHLORIDE ER 20 MEQ TAB.ER PO SCH (09:01)
[2020-07-18] MEDS ORDERED: methylPREDNISolone SOD SUCCI 40 MG/ML 1 ML VIAL IV SCH (09:30)
[2020-07-18 09:38] LABS: Basophils # (A) 0.03 X 10*3/uL (0.00-0.10); Basophils % (A) 0.5 %; Eosinophils # (A) 0.12 X 10*3/uL (0.04-0.35); Eosinophils % (A) 2.1 %; HCT 26.1 % (37.2-46.3); HGB 7.4 g/dL (12.0-15.0); Lymphocytes # (A) 0.81 X 10*3/uL (0.90-5.00); Lymphocytes % (A) 14.4 %; MCH 27.8 pg (27.0-32.0); MCHC 28.4 g/dL (32.0-37.0); MCV 98.1 fL (80.0-97.0); Mean Platelet Volume 9.5 fL (9.5-12.2); Monocytes # (A) 0.48 X 10*3/uL (0.20-1.00); Monocytes % (A) 8.5 %; Neutrophils # (A) 4.16 X 10*3/uL (1.80-7.70); Neutrophils % (A) 73.8 %; Platelet Count 238 X 10*3/uL (140-440); RBC 2.66 X 10*6/uL (4.10-5.20); RDW 15.9 % (11.5-14.5); WBC 5.64 X 10*3/uL (4.50-10.00)
--- NOTE | 2020-07-18 10:09 | P.DS ---
Providers Date of admission: 07/17/20 17:17 Expected date of discharge: 07/18/20 Attending physician: Angel Snell Consults: 07/17/20 16:58 Consult Physician Urgent Consulting Provider: Bernabe Sanchez Consult Reason/Comments: acute chest pain, multiple lung nodules, possible metastatic disease Do you want consulting provider notified?: Yes Consult Physician Urgent Consulting Provider: [facility] Consult Reason/Comments: acute chest pain, possible acs Do you want consulting provider notified?: Yes Primary care physician: Franklyn Marino [facility] Course: HISTORY OF PRESENT ILLNESS: 80-year-old female one of Dr. Marino patient with past medical history of A. fib, recurrent C. diff with chronic diarrhea, CVA, GERD, hypertension, chronic lower back pain and history of perforated bowel post resection in the past. Patient had long-standing history of C. diff along with chronic iron deficiency anemia with multiple episode of GI bleed and multiple EGD and colonoscopy. Patient presented to the emergency department at 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 Ended up coming to demurs department her laboratory value shows her hemoglobin to be 9.0) Baseline normal white blood cell and platelet. Her d-dimer was 5.10 and with normal kidney function patient ended up going for CT of the lung came back consistent with multiple nodular in the lung tissue decent size highly suspicious for malignancy or metastasis. Covid was negative for the time no sign of pulmonary embolism patient will be admitted to the hospital with see cardiology CK with troponin 3 will be done also will have pulmonary seen patient to clarify those nodular compared to the loss CAT scan she had before. 07/18: She has been afebrile, heart rate in the 50s and 60s, blood pressure 100/74, pulse ox 90% on room air. Troponins have been negative on 3 draws. Patient has been seen by pulmonary medicine and placed on Solu-Medrol 40 mg IV every 8 hours Avapro calcitonin added. Patient is also been seen by cardiology. Echocardiogram is ordered and report is pending at the time of discharge. Patient is complaining of midsternal chest pain that goes under her left breast around to her shoulder area. This area is tender to touch. She states she is moving to [place] but encouraged to follow up with Dr. Acuna prior to her move. Her hemoglobin today is 7.4 and she'll be given 1 dose of Ferrlecit. Patient will be discharged home today in stable condition. Assessment and plan: 1. Atypical chest pain, costochondritis. 2. COPD 3. A. fib with RVR paroxysmal atrial fibrillation 4. Hypothyroidism 5. 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 Chronic depression 7. Chronic kidney disease: Stage II 8. multiple lung nodular: Not clear etiology but suspicious for malignancy Discharge plan: Home Impression and plan of care have been directed as dictated by the signing physician. Domenica Reed nurse practitioner acting as scribe for signing physician. Patient Condition at Discharge: Good Plan - Discharge Summary Discharge Rx Participant: No New Discharge Prescriptions: New methylPREDNISolone Dose Pack [Medrol Dose Pack] 4 mg PO DIRECTED #21 package Continue Citalopram Hydrobromide [CeleXA] 40 mg PO DAILY Levothyroxine Sodium [Synthroid] 50 mcg PO DAILY ALPRAZolam [Xanax] 2 mg PO Q8H PRN PRN Reason: Anxiety traZODone HCL [Desyrel] 200 mg PO HS oxyCODONE-APAP 10-325MG [Percocet 10-325 mg] 1 tab PO BID Potassium Chloride ER [K-Dur 20] 20 meq PO BID atenoloL [Tenormin] 25 mg PO HS Discharge Medication List Citalopram Hydrobromide [CeleXA] 40 mg PO DAILY 05/12/18 [History] ALPRAZolam [Xanax] 2 mg PO Q8H PRN 06/06/18 [History] Levothyroxine Sodium [Synthroid] 50 mcg PO DAILY 06/06/18 [History] traZODone HCL [Desyrel] 200 mg PO HS 11/09/18 [History] oxyCODONE-APAP 10-325MG [Percocet 10-325 mg] 1 tab PO BID 06/29/19 [History] Potassium Chloride ER [K-Dur 20] 20 meq PO BID 07/17/20 [History] atenoloL [Tenormin] 25 mg PO HS 07/17/20 [History] methylPREDNISolone Dose Pack [Medrol Dose Pack] 4 mg PO DIRECTED #21 package 07/18/20 [Rx] Follow up Appointment(s)/Referral(s): [facility] [Provider Group] - 2 Weeks Eddie Acuna MD [STAFF PHYSICIAN] - 1 Week Bernabe Sanchez DO [Doctor of Osteopathic Medicine] - 1 Week Franklyn Marino DO [Primary Care Provider] - 1 Week Discharge Disposition: HOME SELF-CARE
[2020-07-18] MEDS ORDERED: SODIUM FERRIC GLUCONAT-SUCROSE 125 MG in SODIUM CHLORIDE 0.9% 100 ML IVPB ONE (10:45)
--- NOTE | 2020-07-18 11:05 | P.CRDCN ---
History of Present Illness Consult date: 07/18/20 History of present illness: HISTORY OF PRESENT ILLNESS: This is a 80-year-old female with a past medical history significant for atrial fibrillation, hypertension, hyperlipidemia, valvular heart disease, anxiety, and depression. We have been asked to see the patient in consultation for chest pain. Patient examined at the bedside in the emergency room. Patient states she has been having chest discomfort for the past 10 days. She states the pain is intermittent. She states the pain goes into her left collarbone. She reports the pain as a dull sensation. She states she does not have any pain when she is resting but states the pain is brought on with movement. At the time of examination, the patient denies any discomfort. EKG reveals sinus rhythm with first-degree AV block. Left axis deviation. Chest xray COPD with large hiatal hernia. Correlate for chronic interstitial lung disease otherwise consider interstitial pneumonitis. Chest CT: Negative for pulmonary embolism. Multiple new small pulmonary nodules suspicious for metastatic disease. Laboratory data: WBC 5.64. Hemoglobin 7.4. Platelet count 238. D-dimer 5.10. Sodium 138. Potassium 4.5. BUN 14. Creatinine 0.87. Troponin negative 3. BNP 537. Current home cardiac medications include atenolol 25 mg daily Most recent echocardiogram obtained in September 2019 revealing ejection fraction 60- 65%, moderate aortic stenosis, mild mitral regurgitation, and mild tricuspid regurgitation. REVIEW OF SYSTEMS: At the time of my exam: CONSTITUTIONAL: Denies fever or chills. HEENT: Denies blurred vision, vision changes, or eye pain. Denies hemoptysis CARDIOVASCULAR: Denies chest pain. Denies orthopnea. Denies PND. Denies palpitations RESPIRATORY: Denies shortness of breath. GASTROINTESTINAL: Denies abdominal pain. Denies nausea or vomiting. HEMATOLOGIC: Denies bleeding disorders. GENITOURINARY: Denies any blood in urine. SKIN: Denies pruitis. Denies rash. PHYSICAL EXAM: VITAL SIGNS: Reviewed. GENERAL: Well-developed in no acute distress. HEENT: Head is normocephalic. Pupils are equal, round. Sclerae anicteric. Mucous membranes of the mouth are moist. Neck supple. No JVD or thyromegaly LUNGS: Respirations even and unlabored. Lungs diminished bilaterally. HEART: Regular rate and rhythm. S1 and S2 heard. Systolic murmur noted. ABDOMEN: Soft. Nondistended. Nontender. EXTREMITIES: Normal range of motion. No clubbing or cyanosis. Peripheral pulses intact. No lower extremity edema NEUROLOGIC: Awake and alert. Oriented x 3. ASSESSMENT: Intermittent chest pain 10 days Paroxysmal atrial fibrillation, not on anticoagulation due to history of GI bleeding New pulmonary nodules per CT Valvular heart disease COPD Hypertension PLAN: An acute coronary event has been ruled out Resume home cardiac medications Obtain 2D echo to assess cardiac structure and function Await pulmonary evaluation If no significant abnormalities noted on echocardiogram, the patient may be discharged home from a cardiac standpoint. Nurse practitioner note has been reviewed by physician. Signing provider agrees with the documented findings, assessment, and plan of care. Past Medical History Past Medical History: Atrial Fibrillation, Atrial Flutter, Cancer, COPD, GERD/Reflux, Hyperlipidemia, Hypertension, Mitral Valve Prolapse (MVP), Pneumonia, Rheumatoid Arthritis (RA), Supraventricular Tachycardia (SVT), Thyroid Disorder, Vascular Disorder Additional Past Medical History / Comment(s): Possible past GI bleed, multiple esophageal erosions, melanoma of the rectum, skin cancer with removals, anemia with transfusions, MVP/regurgitation, recurrent CDiff/colitis, chronic back pain, DDD, seasonal allergies, UTI, hypothyroid, varicosities, urinary stress incontinence, UTIs, chronic lower leg edema History of Any Multi-Drug Resistant Organisms: C-DIFF Date of last positivie culture/infection: 2015 MDRO Source:: Stool Past Surgical History: Adenoidectomy, Back Surgery, Cholecystectomy, Hysterectomy, Joint Replacement, Orthopedic Surgery, Tonsillectomy Additional Past Surgical History / Comment(s): Hemorrhoidectomy, EGDs, colonoscopies every 6 months, skin cancer removals, fecal transplants x3, bilateral total hip arthroplasties, bilateral total knee arthroplasties with L knee revision, lumbar laminectomy x2, total r shoulder. Past Anesthesia/Blood Transfusion Reactions: No Reported Reaction Additional Past Anesthesia/Blood Transfusion Reaction / Comment(s): blood transfusion in past no reactions Smoking Status: Current every day smoker - Past Family History Mother Family Medical History: Cancer Additional Family Medical History / Comment(s): Mother at age 60 with history of emphysema and lung cancer. Father Family Medical History: CVA/TIA Additional Family Medical History / Comment(s): Father at age 74 with p collinlems with his larynx. Sister(s) Family Medical History: Unable to Obtain Daughter(s) Family Medical History: COPD, Myocardial Infarction ([place]) Additional Family Medical History / Comment(s): Mother at age 60 yrs of emphysema/lung CA Son(s) Family Medical History: Myocardial Infarction ([place]) Additional Family Medical History / Comment(s): Father at age 74yrs with "CVA of his larynx" Medications and Allergies Home Medications Medication Instructions Recorded Confirmed Type Citalopram Hydrobromide [CeleXA] 40 mg PO DAILY 05/12/18 07/17/20 History ALPRAZolam [Xanax] 2 mg PO Q8H PRN 06/06/18 07/17/20 History Levothyroxine Sodium [Synthroid] 50 mcg PO DAILY 06/06/18 07/17/20 History traZODone HCL [Desyrel] 200 mg PO HS 11/09/18 07/17/20 History oxyCODONE-APAP 10-325MG [Percocet 1 tab PO BID 06/29/19 07/17/20 History 10-325 mg] Potassium Chloride ER [K-Dur 20] 20 meq PO BID 07/17/20 07/17/20 History atenoloL [Tenormin] 25 mg PO HS 07/17/20 07/17/20 History methylPREDNISolone Dose Pack 4 mg PO DIRECTED #21 package 07/18/20 Rx [Medrol Dose Pack] Allergies Allergy/AdvReac Type Severity Reaction Status Date / Time adhesive tape Allergy Rash/Hives Verified 07/17/20 16:14 Influenza Virus Vaccines Allergy "MAKES HER Verified 07/17/20 16:14 FEEL SICK" Sulfa (Sulfonamide Allergy Rash/Hives Verified 07/17/20 16:14 Antibiotics) amoxicillin trihydrate AdvReac Diarrhea Verified 07/17/20 16:14 [From Augmentin] ciprofloxacin [From Cipro] AdvReac Unknown Verified 07/17/20 16:14 metronidazole [From Flagyl] AdvReac Unknown Verified 07/17/20 16:14 potassium clavulanate AdvReac Diarrhea Verified 07/17/20 16:14 [From Augmentin] quinidine AdvReac BLOOD CLOTS Verified 07/17/20 16:14 Physical Exam Vitals: Vital Signs Temp Pulse Resp BP Pulse Ox 07/18/20 08:57 98.2 F 60 18 100/74 98 07/18/20 05:57 98.0 F 59 L 20 88/57 95 07/18/20 03:15 97.9 F 57 L 20 99/59 95 07/18/20 00:00 98.1 F 55 L 20 91/56 98 07/17/20 22:45 60 20 98/61 96 07/17/20 21:45 64 18 98/55 98 07/17/20 20:56 98.7 F 65 20 109/63 99 07/17/20 18:41 65 16 97/54 100 07/17/20 16:56 65 16 128/76 100 07/17/20 14:22 66 16 119/61 98 07/17/20 11:30 98.0 F 64 16 116/62 98 Intake and Output 07/17/20 07/18/20 07/18/20 22:59 06:59 14:59 Other: Weight 77.111 kg Results 07/18/20 05:25 07/17/20 11:39 Cardiac Enzymes 07/17/20 07/17/20 07/17/20 Range/Units 11:39 11:39 17:17 AST 25 (14-36) U/L Troponin I <0.012 <0.012 (0.000-0.034) ng/mL 07/17/20 Range/Units 20:47 AST (14-36) U/L Troponin I <0.012 (0.000-0.034) ng/mL Coagulation 07/17/20 Range/Units 11:39 PT 10.0 (9.0-12.0) sec APTT 19.1 L (22.0-30.0) sec CBC 07/17/20 07/18/20 Range/Units 11:39 05:25 WBC 6.2 5.64 (3.8-10.6) k/uL RBC 3.06 L 2.66 L (3.80-5.40) m/uL Hgb 9.0 L 7.4 L (11.4-16.0) gm/dL Hct 28.0 L 26.1 L (34.0-46.0) % Plt Count 332 238 (150-450) k/uL Comprehensive Metabolic Panel 07/17/20 Range/Units 11:39 Sodium 138 (137-145) mmol/L Potassium 4.5 (3.5-5.1) mmol/L Chloride 111 H (98-107) mmol/L Carbon Dioxide 20 L (22-30) mmol/L BUN 14 (7-17) mg/dL Creatinine 0.87 (0.52-1.04) mg/dL Glucose 99 (74-99) mg/dL Calcium 9.2 (8.4-10.2) mg/dL AST 25 (14-36) U/L ALT 10 (4-34) U/L Alkaline Phosphatase 132 H (38-126) U/L Total Protein 5.9 L (6.3-8.2) g/dL Albumin 3.5 (3.5-5.0) g/dL Current Medications Generic Name Dose Route Start Last Admin Trade Name Freq PRN Reason Stop Dose Admin Alprazolam 0.5 mg 07/17/20 20:55 07/18/20 03:09 Alprazolam 0.5 Mg Tab PO 0.5 mg Q8H PRN Administration Anxiety Atenolol 25 mg 07/17/20 21:00 07/17/20 21:41 Atenolol 25 Mg Tab PO 25 mg HS KACY Administration Citalopram Hydrobromide 40 mg 07/18/20 09:00 07/18/20 09:00 Citalopram Hydrobromide 20 Mg Tab PO 40 mg DAILY KACY Administration Hydromorphone HCl 0.5 mg 07/17/20 17:40 07/18/20 07:19 Hydromorphone 0.5 Mg/0.5 Ml Syringe IVP 0.5 mg Q4HR PRN Administration Pain Ferric Sodium Gluconate 125 mg 110 mls @ 100 mls/hr 07/18/20 10:45 / Sodium Chloride IVPB 07/18/20 11:50 ONCE ONE Levothyroxine Sodium 50 mcg 07/18/20 06:30 07/18/20 06:55 Levothyroxine 50 Mcg Tab PO 50 mcg DAILY@0630 KACY Administration Methylprednisolone Sodium Succinate 40 mg 07/18/20 09:30 Methylprednisolone Sod Succi 40 Mg/Ml 1 Ml Vial IV Q8H KACY Naloxone HCl 0.2 mg 07/17/20 16:57 Naloxone 0.4 Mg/Ml 1 Ml Vial IV Q2M PRN Opioid Reversal Oxycodone/Acetaminophen 1 each 07/17/20 21:00 07/18/20 09:00 Oxycodone-Apap 10-325mg 1 Each Tab PO 1 each BID KACY Administration Potassium Chloride 20 meq 07/17/20 21:00 07/18/20 09:01 Potassium Chloride Er 20 Meq Tab.Er PO 20 meq BID KACY Administration Trazodone HCl 200 mg 07/17/20 21:00 07/18/20 09:01 Trazodone Hcl 100 Mg Tab PO 200 mg HS KACY Administration Intake and Output 07/17/20 07/18/20 07/18/20 22:59 06:59 14:59 Other: Weight 77.111 kg Patient Weight 07/19/20 06:59 Weight 77.111 kg 07/18/20 05:25 07/17/20 11:39
--- NOTE | 2020-07-18 12:21 | P.CNPUL ---
History of Present Illness Consult date: 07/18/20 Reason for consult: chest pain, pleural effusion, abnormal CXR/CT Chief complaint: Pleuritic left chest discomfort History of present illness: This is a 80-year-old white female patient past medical history atrial fibril lation, mitral valve prolapse, rheumatoid arthritis, hypothyroidism, current smoker, she smokes 5 cigarettes a day, smoking history since the age of 13, underlying history of COPD not on home oxygen, chronic back pain, anxiety, depression, chronic anemia for which the patient follows with Dr. Acuna. Patient presented to the emergency department on 07/17/2020 complaints of sharp pain in her left lower chest area under the left breast going across the left lateral chest to the back, which is exacerbated by deep breathing and coughing, and moving. Denies any fever and chills, she recently returned from [place] by train, denies any shortness of breath or coughing, no hemoptysis. No previous history of DVT or PE. No swelling in her lower extremities, no calf pain or redness. EKG showed normal sinus rhythm with first-degree AV block evidence of inferior infarct of undetermined age, and anteroseptal infarct of undetermined age. Chest x-ray showed COPD with large hiatal hernia, and chronic interstitial lung disease. Admission labs showed elevated d-dimer 5.10, by CTA chest showed no evidence of pulmonary embolism, the lungs were clear and free of infiltrate, and there were multiple new small pulmonary nodules within both lung mattson with the largest one within the left lower lobe measuring 8 mm in largest within the right upper lobe measuring 8.5 mm, was a consideration for metastatic disease. There was small left pleural effusion and right basilar compressive atelectasis. Patient reports a history of melanoma of the anus which was surgically resected, and patient follows with melanoma specialist from the [facility] and recently saw Dr. Whitaker in follow-up 2 months ago and was told that everything was clear. Patient's troponins were negative 3, proBNP was 537, white blood count is 5.64, hemoglobin is 7.4, and patient gets iron transfusions and a regular basis, no evidence of bleeding, platelet count 238, sodium is 138, potassium is 4.5, BUN is 14, creatinine is 0.87, she underwent cardiac evaluation, her recent echocardiogram in September 2019 showed preserved ejection fraction of 60-65%, moderate aortic stenosis, mild mitral regurgitation and mild tricuspid regurgitation. At the same of my evaluation patient is resting comfortably in bed, looks nontoxic, no cough, no fever no chills, no swelling in lower extremities, lung sounds reveal bilateral crackles at bilateral lower bases, patient looks very comfortable, no cervical or supraclavicular lymp hadenopathy, no voice hoarseness. Still complaining of left lower chest discomfort with moving around. She was given some oral pain medications, we will add IV steroids for pleuritic chest wall discomfort Review of Systems All systems: negative Constitutional: Denies chills, Denies fever Eyes: denies blurred vision, denies pain Ears, nose, mouth and throat: Denies headache, Denies sore throat Cardiovascular: Reports chest pain, Denies shortness of breath Respiratory: Denies cough Gastrointestinal: Denies abdominal pain, Denies diarrhea, Denies nausea, Denies vomiting Genitourinary: Denies dysuria, Denies hematuria Musculoskeletal: Denies myalgias Integumentary: Denies pruritus, Denies rash Neurological: Denies numbness, Denies weakness Psychiatric: Denies anxiety, Denies depression Endocrine: Denies fatigue, Denies weight change Past Medical History Past Medical History: Atrial Fibrillation, Atrial Flutter, Cancer, COPD, GERD/Reflux, Hyperlipidemia, Hypertension, Mitral Valve Prolapse (MVP), Pneumonia, Rheumatoid Arthritis (RA), Supraventricular Tachycardia (SVT), Thyroid Disorder, Vascular Disorder Additional Past Medical History / Comment(s): Possible past GI bleed, multiple esophageal erosions, melanoma of the rectum, skin cancer with removals, anemia with transfusions, MVP/regurgitation, recurrent CDiff/colitis, chronic back pain, DDD, seasonal allergies, UTI, hypothyroid, varicosities, urinary stress incontinence, UTIs, chronic lower leg edema History of Any Multi-Drug Resistant Organisms: C-DIFF Date of last positivie culture/infection: 2015 MDRO Source:: Stool Past Surgical History: Adenoidectomy, Back Surgery, Cholecystectomy, Hysterectomy, Joint Replacement, Orthopedic Surgery, Tonsillectomy Additional Past Surgical History / Comment(s): Hemorrhoidectomy, EGDs, colonoscopies every 6 months, skin cancer removals, fecal transplants x3, bilateral total hip arthroplasties, bilateral total knee arthroplasties with L knee revision, lumbar laminectomy x2, total r shoulder. Past Anesthesia/Blood Transfusion Reactions: No Reported Reaction Additional Past Anesthesia/Blood Transfusion Reaction / Comment(s): blood transfusion in past no reactions Smoking Status: Current every day smoker - Past Family History Mother Family Medical History: Cancer Additional Family Medical History / Comment(s): Mother at age 60 with history of emphysema and lung cancer. Father Family Medical History: CVA/TIA Additional Family Medical History / Comment(s): Father at age 74 with problems with his larynx. Sister(s) Family Medical History: Unable to Obtain Daughter(s) Family Medical History: COPD, Myocardial Infarction ([place]) Additional Family Medical History / Comment(s): Mother at age 60 yrs of emphysema/lung CA Son(s) Family Medical History: Myocardial Infarction ([place]) Additional Family Medical History / Comment(s): Father at age 74yrs with "CVA of his larynx" Medications and Allergies Home Medications Medication Instructions Recorded Confirmed Type Citalopram Hydrobromide [CeleXA] 40 mg PO DAILY 05/12/18 07/17/20 History ALPRAZolam [Xanax] 2 mg PO Q8H PRN 06/06/18 07/17/20 History Levothyroxine Sodium [Synthroid] 50 mcg PO DAILY 06/06/18 07/17/20 History traZODone HCL [Desyrel] 200 mg PO HS 11/09/18 07/17/20 History oxyCODONE-APAP 10-325MG [Percocet 1 tab PO BID 06/29/19 07/17/20 History 10-325 mg] Potassium Chloride ER [K-Dur 20] 20 meq PO BID 07/17/20 07/17/20 History atenoloL [Tenormin] 25 mg PO HS 07/17/20 07/17/20 History methylPREDNISolone Dose Pack 4 mg PO DIRECTED #21 package 07/18/20 Rx [Medrol Dose Pack] Allergies Allergy/AdvReac Type Severity Reaction Status Date / Time adhesive tape Allergy Rash/Hives Verified 07/17/20 16:14 Influenza Virus Vaccines Allergy "MAKES HER Verified 07/17/20 16:14 FEEL SICK" Sulfa (Sulfonamide Allergy Rash/Hives Verified 07/17/20 16:14 Antibiotics) amoxicillin trihydrate AdvReac Diarrhea Verified 07/17/20 16:14 [From Augmentin] ciprofloxacin [From Cipro] AdvReac Unknown Verified 07/17/20 16:14 metronidazole [From Flagyl] AdvReac Unknown Verified 07/17/20 16:14 potassium clavulanate AdvReac Diarrhea Verified 07/17/20 16:14 [From Augmentin] quinidine AdvReac BLOOD CLOTS Verified 07/17/20 16:14 Physical Exam Vitals: Vital Signs Temp Pulse Resp BP Pulse Ox 07/18/20 08:57 98.2 F 60 18 100/74 98 07/18/20 05:57 98.0 F 59 L 20 88/57 95 07/18/20 03:15 97.9 F 57 L 20 99/59 95 07/18/20 00:00 98.1 F 55 L 20 91/56 98 07/17/20 22:45 60 20 98/61 96 07/17/20 21:45 64 18 98/55 98 07/17/20 20:56 98.7 F 65 20 109/63 99 07/17/20 18:41 65 16 97/54 100 07/17/20 16:56 65 16 128/76 100 07/17/20 14:22 66 16 119/61 98 Intake and Output 07/17/20 07/18/20 07/18/20 22:59 06:59 14:59 Other: Weight 77.111 kg GENERAL EXAM: Alert, very pleasant, 80-year-old white female, on room air comfortable in no apparent distress. HEAD: Normocephalic/atraumatic. EYES: Normal reaction of pupils, equal size. Conjunctiva pink, sclera white. NOSE: Clear with pink turbinates. THROAT: No erythema or exudates. NECK: No masses, no JVD, no thyroid enlargement, no adenopathy. CHEST: No chest wall deformity. Symmetrical expansion. LUNGS: Equal air entry with crackles at bilateral bases CVS: Regular rate and rhythm, normal S1 and S2, no gallops, positive systolic murmurs throughout precordium ABDOMEN: Soft, nontender. No hepatosplenomegaly, normal bowel sounds, no guarding or rigidity. EXTREMITIES: No clubbing, no edema, no cyanosis, 2+ pulses and upper and lower extremities. MUSCULOSKELETAL: Muscle strength and tone normal. SPINE: No scoliosis or deformity SKIN: No rashes CENTRAL NERVOUS SYSTEM: Alert and oriented -3. No focal deficits, tone is normal in all 4 extremities. PSYCHIATRIC: Alert and oriented -3. Appropriate affect. Intact judgment and insight. Results - Laboratory Findings CBC and BMP: 07/18/20 05:25 07/17/20 11:39 PT/INR, D-dimer PT 10.0 sec (9.0-12.0) 07/17/20 11:39 INR 0.9 (<1.2) 07/17/20 11:39 D-Dimer 5.10 mg/L FEU (<0.60) H 07/17/20 11:39 Abnormal lab findings: Abnormal Labs 07/17/20 07/17/20 07/17/20 11:39 11:39 11:39 RBC 3.06 L Hgb 9.0 L Hct 28.0 L MCV MCHC RDW 16.0 H Lymphocytes # 0.5 L APTT 19.1 L D-Dimer 5.10 H Chloride 111 H Carbon Dioxide 20 L Alkaline Phosphatase 132 H Total Protein 5.9 L 07/18/20 05:25 RBC 2.66 L Hgb 7.4 L Hct 26.1 L MCV 98.1 H MCHC 28.4 L RDW 15.9 H Lymphocytes # 0.81 L APTT D-Dimer Chloride Carbon Dioxide Alkaline Phosphatase Total Protein - Diagnostic Findings Chest x-ray: report reviewed, image reviewed CT scan - chest: report reviewed, image reviewed Additional studies: EKG reviewed Assessment and Plan Plan: Assessment: #1. Left chest discomfort under the left breast wrapping around to the back, seems to be pleuritic in nature. COVID 19 PCR was negative, no acute infiltrates present on CTA chest, no evidence of PE, there was a small left plural effusion. No recent history of illness or trauma to the chest no fever or chills #2. New multiple pulmonary nodules, with the largest one measuring 8.5 mm, with a suspicion for metastatic disease, need outpatient follow-up with a PET scan #3. History of COPD not on oxygen on a regular basis #4. Chronic anemia, iron deficiency #5. History of A. fib, with valvular heart disease, not on anticoagulation on the regular basis related to history of anemia, currently in sinus mechanism #6. Hypothyroidism #7. History of rectal melanoma with surgical resection and patient follows with the melanoma specialist from the [facility] #8. Chronic smoker, smokes cigarettes on a daily basis #9. Chronic kidney disease, as a for #10. Depression Plan: We'll start the patient on IV Solu-Medrol, we'll send the pro-calcitonin level, doubt underlying pulmonary infection, CTA chest has been noted showing multiple new small pulmonary nodules the possibility of metastasis. In view of underlying history of rectal melanoma recommend outpatient PET scan, patient needs an outpatient follow-up with Dr. Sanchez in the office, patient states she is moving to [place] within 1 week, and we recommended that she gets established with a order management specialist and obtain some outpatient PET scan for at least a follow-up CT of the chest for surveillance of the pulmonary nodules. I performed a history & physical examination of the patient and discussed their management with my nurse practitioner, Shannan Vazquez. I reviewed the nurse practitioner's note and agree with the documented findings and plan of care. Lung sounds are positive for crackles in [place] bases. The findings and the impression was discussed with the patient. I attest to the documentation by the nurse practitioner. Time with Patient: Greater than 30
[2020-07-18 13:52] VITALS: BP 89/54; PULSE 62; TEMP 98.6
[2020-07-18 21:08] LABS: African American GFR (CKD) 95.5 (60.0-200.0); Anion Gap 7.9 mmol/L (4.00-12.00); BUN/Creat Ratio 17.14 Ratio (12.00-20.00); Calcium 8.5 mg/dL (8.7-10.3); Carbon Dioxide 21.1 mmol/L (21.6-31.8); Non-African American GFR(CKD) 82.4 (60.0-200.0); Potassium 4.2 mmol/L (3.5-5.5)
--- NOTE | 2020-07-19 10:58 | ECHOF ---
Referral Reason: MEASUREMENTS -------- HEIGHT: 167.6 cm WEIGHT: 77.1 kg BP: RVIDd: 3.5 cm (< 3.3) IVSd: 0.9 cm (0.6 - 1.1) LVIDd: 3.1 cm (3.9 - 5.3) LVPWd: 1.0 cm (0.6 - 1.1) IVSs: 1.5 cm LVIDs: 2.2 cm LVPWs: 1.4 cm Ao Diam: 2.7 cm (2.0 - 3.7) AV Cusp: 1.1 cm (1.5 - 2.6) LA Diam: 2.5 cm (2.7 - 3.8) MV EXCURSION: 13.883 mm (> 18.000) MV EF SLOPE: 32 mm/s (70 - 150) EPSS: 0.2 cm MV E Jem: 1.05 m/s MV DecT: 306 ms MV A Jem: 1.33 m/s MV E/A Ratio: 0.79 AV maxP.81 mmHg AV meanP.73 mmHg RAP: 5.00 mmHg RVSP: 44.85 mmHg FINDINGS -------- This was a technically difficult study with suboptimal views. The left ventricular size is normal. Left ventricular wall thickness is normal. Overall left vent ricular systolic function is normal with, an EF between 55 - 60 %. The right ventricle is mildly enlarged. The left atrial size is normal. The right atrial size is normal. Aortic valve is trileaflet and is moderately thickened. There is moderate aortic stenosis present. Peak/mean gradient across the Aortic Valve is 40.81mmHg / 20.73mmHg. The mitral valve is normal. The mitral valve leaflets are mildly thickened. Moderate mitral annul ar calcification present. Mild mitral regurgitation is present. The peak and mean MV gradients a re 10.17mmHg 3.53mmHg as measured by doppler. Moderate mitral stenosis. The tricuspid valve appears structurally normal. Mild tricuspid regurgitation present. There is m ild pulmonary hypertension. The right ventricular systolic pressure, as measured by Doppler, is 44. 85mmHg. There is no pulmonic regurgitation present. The aortic root size is normal. Normal inferior vena cava with normal inspiratory collapse consistent with estimated right atrial pre ssure of 5 mmHg. There is no pericardial effusion. CONCLUSIONS -------- 1. The left ventricular size is normal. 2. Left ventricular wall thickness is normal. 3. Overall left ventricular systolic function is normal with, an EF between 55 - 60 %. 4. The right ventricle is mildly enlarged. 5. Aortic valve is trileaflet and is moderately thickened. 6. There is moderate aortic stenosis present. 7. Peak/mean gradient across the Aortic Valve is 40.81mmHg / 20.73mmHg. 8. The mitral valve leaflets are mildly thickened. 9. Moderate mitral annular calcification present. 10. Mild mitral regurgitation is present. 11. The peak and mean MV gradients are 10.17mmHg 3.53mmHg as measured by doppler. 12. Moderate mitral stenosis. 13. Mild tricuspid regurgitation present. 14. There is mild pulmonary hypertension. 15. The right ventricular systolic pressure, as measured by Doppler, is 44.85mmHg. 16. There is no pericardial effusion. EMBEDDED CASE MANAGER: Veronica Urrutia RDCS
== END 2020-07-18 16:09 | disposition home or self-care (01) ==
LOC: EC 11:27 → 6NMEDSUR 17:17
PROVIDERS: ADMIT Internal Medicine Geriatric Medicine; ATTEND Internal Medicine Geriatric Medicine
DX: R07.89 Other chest pain (principal); M94.0 Chondrocostal junction syndrome [Tietze]; R91.8 Other nonspecific abnormal finding of lung field; I12.9 Hypertensive chronic kidney disease with stage 1 through stage 4 chronic kidney disease, or unspecified chronic kidney disease; N18.2 Chronic kidney disease, stage 2 (mild); I48.0 Paroxysmal atrial fibrillation; F17.210 Nicotine dependence, cigarettes, uncomplicated; E78.5 Hyperlipidemia, unspecified; M06.9 Rheumatoid arthritis, unspecified; I48.92 Unspecified atrial flutter; K21.9 Gastro-esophageal reflux disease without esophagitis; E03.9 Hypothyroidism, unspecified; F32.9 Major depressive disorder, single episode, unspecified; F41.9 Anxiety disorder, unspecified; K44.9 Diaphragmatic hernia without obstruction or gangrene; J44.9 Chronic obstructive pulmonary disease, unspecified; I08.3 Combined rheumatic disorders of mitral, aortic and tricuspid valves; I47.1 Supraventricular tachycardia; J98.11 Atelectasis; J90 Pleural effusion, not elsewhere classified; D50.9 Iron deficiency anemia, unspecified; Z20.822 Contact with and (suspected) exposure to COVID-19; K58.9 Irritable bowel syndrome, unspecified; E87.70 Fluid overload, unspecified; G89.29 Other chronic pain; M54.5 Low back pain; I44.0 Atrioventricular block, first degree; N39.3 Stress incontinence (female) (male); I83.90 Asymptomatic varicose veins of unspecified lower extremity; Z79.890 Hormone replacement therapy; Z79.899 Other long term (current) drug therapy; Z88.1 Allergy status to other antibiotic agents; Z88.3 Allergy status to other anti-infective agents; Z88.2 Allergy status to sulfonamides; Z88.7 Allergy status to serum and vaccine; Z88.8 Allergy status to other drugs, medicaments and biological substances; Z91.048 Other nonmedicinal substance allergy status; Z16.24 Resistance to multiple antibiotics; Z90.49 Acquired absence of other specified parts of digestive tract; Z96.611 Presence of right artificial shoulder joint; Z96.643 Presence of artificial hip joint, bilateral; Z96.653 Presence of artificial knee joint, bilateral; Z90.710 Acquired absence of both cervix and uterus; Z98.42 Cataract extraction status, left eye; Z98.41 Cataract extraction status, right eye; Z96.1 Presence of intraocular lens; Z86.19 Personal history of other infectious and parasitic diseases; Z87.19 Personal history of other diseases of the digestive system; Z86.73 Personal history of transient ischemic attack (TIA), and cerebral infarction without residual deficits; Z87.440 Personal history of urinary (tract) infections; Z87.01 Personal history of pneumonia (recurrent); Z85.820 Personal history of malignant melanoma of skin; I25.2 Old myocardial infarction; Z80.1 Family history of malignant neoplasm of trachea, bronchus and lung; Z82.5 Family history of asthma and other chronic lower respiratory diseases; Z82.49 Family history of ischemic heart disease and other diseases of the circulatory system; Z82.3 Family history of stroke; Z80.2 Family history of malignant neoplasm of other respiratory and intrathoracic organs
CPT/HCPCS: 96376; 96365; 96375 ×2; 99285; 36415; 93005; 85379; 83880; 80053; 80048; 83735; 84484; 85025 ×2; 85610; 85730; 84145; 87635; 71046; 71275; G0378 ×2; C8929; J2920; J2916; J1170 ×2; Q9950; Q9967; 93306

== ENCOUNTER 2020-07-22 12:38 | Emergency (ER) | payer MEDICARE ==
[2020-07-22 12:55] VITALS: RESP 18
[2020-07-22] MEDS ORDERED: ASPIRIN 81 MG PO STA (13:12)
[2020-07-22] MEDS ORDERED: MORPHINE SULFATE 4 MG/ML SYRINGE IV STA (13:12)
[2020-07-22] MEDS ORDERED: SODIUM CHLORIDE 0.9% 1,000 ML IV STA (13:12)
--- NOTE | 2020-07-22 13:15 | ED ---
General Adult HPI - General Chief complaint: Extremity Problem,Nontraumatic Stated complaint: chest pain Time Seen by Provider: 07/22/20 12:40 Source: patient, RN notes reviewed, old records reviewed Limitations: no limitations - History of Present Illness Initial comments: Patient is a pleasant 80-year-old female sitting to the emergency Department with complaints of chest discomfort. Onset of symptoms has been around 1 month. Patient was in the hospital several days ago. Patient has continued symptoms. No better or worse. Discomfort increases with deep breaths and position changes. Discomfort is left chest but does radiate towards the back and right chest. Patient was recently in the hospital and had testing done including computed tomography scan and echo. Patient states she has a known history of murmur. Patient denies fevers. No dyspnea. No nausea or diaphoresis. - Related Data Home Medications Medication Instructions Recorded Confirmed Citalopram Hydrobromide [CeleXA] 40 mg PO DAILY 05/12/18 07/22/20 ALPRAZolam [Xanax] 2 mg PO Q8H PRN 06/06/18 07/22/20 Levothyroxine Sodium [Synthroid] 50 mcg PO DAILY 06/06/18 07/22/20 traZODone HCL [Desyrel] 200 mg PO HS 11/09/18 07/22/20 oxyCODONE-APAP 10-325MG [Percocet 1 tab PO BID 06/29/19 07/22/20 10-325 mg] Potassium Chloride ER [K-Dur 20] 20 meq PO BID 07/17/20 07/22/20 atenoloL [Tenormin] 25 mg PO HS 07/17/20 07/22/20 Previous Rx's Medication Instructions Recorded methylPREDNISolone Dose Pack 4 mg PO DIRECTED #21 package 07/18/20 [Medrol Dose Pack] Ibuprofen [Motrin] 600 mg PO Q8HR PRN #12 tab 07/22/20 Allergies Allergy/AdvReac Type Severity Reaction Status Date / Time adhesive tape Allergy Rash/Hives Verified 07/22/20 14:23 Influenza Virus Vaccines Allergy "MAKES HER Verified 07/22/20 14:23 FEEL SICK" Sulfa (Sulfonamide Allergy Rash/Hives Verified 07/22/20 14:23 Antibiotics) amoxicillin trihydrate AdvReac Diarrhea Verified 07/22/20 14:23 [From Augmentin] ciprofloxacin [From Cipro] AdvReac Unknown Verified 07/22/20 14:23 metronidazole [From Flagyl] AdvReac Unknown Verified 07/22/20 14:23 potassium clavulanate AdvReac Diarrhea Verified 07/22/20 14:23 [From Augmentin] quinidine AdvReac BLOOD CLOTS Verified 07/22/20 14:23 Review of Systems ROS Statement: Those systems with pertinent positive or pertinent negative responses have been documented in the HPI. ROS Other: All systems not noted in ROS Statement are negative. Constitutional: Denies: fever Eyes: Denies: eye pain ENT: Denies: ear pain Respiratory: Denies: cough, dyspnea Cardiovascular: Reports: as per HPI Endocrine: Denies: fatigue Gastrointestinal: Denies: abdominal pain Genitourinary: Denies: dysuria Musculoskeletal: Denies: arthralgia Skin: Denies: rash Neurological: Denies: weakness Past Medical History Past Medical History: Atrial Fibrillation, Atrial Flutter, GERD/Reflux, Hyperlipidemia, Hypertension, Mitral Valve Prolapse (MVP), Rheumatoid Arthritis (RA), Thyroid Disorder Additional Past Medical History / Comment(s): OTHER HX: 03/06/14, 03/30/14, 07/03/14, 07/29/14 with CDIFF colitis, HYPOTHYROID, MVP, urinary incontinence, PROLAPSED MITRAL VALVE- NO PROBLEMS FOR 30 YRS.anemia -requiring blood transfusion History of Any Multi-Drug Resistant Organisms: C-DIFF Date of last positivie culture/infection: 2015 MDRO Source:: Stool Past Surgical History: Adenoidectomy, Cholecystectomy, Hysterectomy, Joint Replacement, Orthopedic Surgery, Tonsillectomy Additional Past Surgical History / Comment(s): 02/18/16 total R hip arthroplasty. Other surgical HX: BILATERAL KNEE REPLACEMENT (2003-RIGHT & 2005 - LEFT); LOWER LUMBAR LAMINECTOMYL4-L5 (2007); LEFT HIP REPLACEMENT (2012); RIGHT SHOULDER REPLACEMENT (2008), left total knee arthroplasty revision. Bilateral cataracts with lens implants. FECAL TRASPLANT TX FOR C-DIFF three times.cataracts-lens implants hemmoroid removed Past Anesthesia/Blood Transfusion Reactions: No Reported Reaction Additional Past Anesthesia/Blood Transfusion Reaction / Comment(s): blood transfusion in past no reactions Past Psychological History: Anxiety, Depression Smoking Status: Current every day smoker Past Alcohol Use History: None Reported Past Drug Use History: None Reported - Past Family History Mother Family Medical History: Cancer Additional Family Medical History / Comment(s): Mother at age 60 with history of emphysema and lung cancer. Father Family Medical History: CVA/TIA Additional Family Medical History / Comment(s): Father at age 74 with probl ems with his larynx. Sister(s) Family Medical History: Unable to Obtain Daughter(s) Family Medical History: COPD, Myocardial Infarction ([place]) Additional Family Medical History / Comment(s): Mother at age 60 yrs of emphysema/lung CA Son(s) Family Medical History: Myocardial Infarction ([place]) Additional Family Medical History / Comment(s): Father at age 74yrs with "CVA of his larynx" General Exam Limitations: no limitations General appearance: alert, in no apparent distress Head exam: Present: normocephalic Eye exam: Present: normal appearance Neck exam: Present: normal inspection Respiratory exam: Present: normal lung sounds bilaterally Cardiovascular Exam: Present: regular rate, normal rhythm, systolic murmur Expanded Peripheral pulses: 2+: Radial (R), Radial (L), Dorsalis Pedis (R), Dorsalis Pedis (L) GI/Abdominal exam: Present: soft. Absent: tenderness Extremities exam: Present: normal inspection. Absent: pedal edema, calf tenderness Neurological exam: Present: alert Psychiatric exam: Present: normal affect, normal mood Skin exam: Present: normal color Course Vital Signs 07/22/20 07/22/20 12:50 13:24 Temperature 97.8 F Pulse Rate 108 H 105 H Respiratory 18 18 Rate Blood Pressure 123/76 114/66 O2 Sat by Pulse 97 98 Oximetry EKG Findings - EKG Comments: EKG Findings:: Sinus tachycardia with 103 rate. OH 110, for screening AV block. QRS 86. QT 346. QTc 453. Left axis. Inferior Q waves. Septal Q waves. No acute ST change. Medical Decision Making - Medical Decision Making Patient reevaluated and symptom-free following morphine. Patient updated on results. Patient feels comfortable with discharge at this time. Patient does have negative troponin with recent cardiology evaluation and symptoms. The one month. Patient also had recent negative computed tomography scan for pulmonary embolism. There is concern for metastasis and this was advised to be worked up as an outpatient. Case was also discussed with Dr. Pittman who agrees with patient being stable for discharge and follow-up. - Lab Data Result diagrams: 07/22/20 13:00 07/22/20 13:14 Lab Results 07/22/20 07/22/20 07/22/20 Range/Units 13:00 13:14 13:14 WBC 6.2 (3.8-10.6) k/uL RBC 3.11 L (3.80-5.40) m/uL Hgb 8.8 L (11.4-16.0) gm/dL Hct 29.3 L (34.0-46.0) % MCV 94.1 (80.0-100.0) fL MCH 28.2 (25.0-35.0) pg MCHC 30.0 L (31.0-37.0) g/dL RDW 17.2 H (11.5-15.5) % Plt Count 347 (150-450) k/uL MPV 6.8 Neutrophils % 80 % Lymphocytes % 12 % Monocytes % 6 % Eosinophils % 1 % Basophils % 0 % Neutrophils # 4.9 (1.3-7.7) k/uL Lymphocytes # 0.7 L (1.0-4.8) k/uL Monocytes # 0.4 (0-1.0) k/uL Eosinophils # 0.1 (0-0.7) k/uL Basophils # 0.0 (0-0.2) k/uL Hypochromasia Marked Poikilocytosis Slight Anisocytosis Slight PT 10.3 (9.0-12.0) sec INR 1.0 (<1.2) APTT 20.6 L (22.0-30.0) sec Sodium 138 (137-145) mmol/L Potassium 4.0 (3.5-5.1) mmol/L Chloride 108 H (98-107) mmol/L Carbon Dioxide 24 (22-30) mmol/L Anion Gap 6 mmol/L BUN 16 (7-17) mg/dL Creatinine 0.65 (0.52-1.04) mg/dL Est GFR (CKD-EPI)AfAm >90 (>60 ml/min/1.73 sqM) Est GFR (CKD-EPI)NonAf 85 (>60 ml/min/1.73 sqM) Glucose 104 H (74-99) mg/dL Calcium 9.0 (8.4-10.2) mg/dL Magnesium 1.7 (1.6-2.3) mg/dL Total Bilirubin 0.3 (0.2-1.3) mg/dL AST 29 (14-36) U/L ALT 15 (4-34) U/L Alkaline Phosphatase 134 H (38-126) U/L Troponin I (0.000-0.034) ng/mL Total Protein 5.5 L (6.3-8.2) g/dL Albumin 3.2 L (3.5-5.0) g/dL Amylase 45 (30-110) U/L Lipase 83 (23-300) U/L 07/22/20 Range/Units 13:14 WBC (3.8-10.6) k/uL RBC (3.80-5.40) m/uL Hgb (11.4-16.0) gm/dL Hct (34.0-46.0) % MCV (80.0-100.0) fL MCH (25.0-35.0) pg MCHC (31.0-37.0) g/dL RDW (11.5-15.5) % Plt Count (150-450) k/uL MPV Neutrophils % % Lymphocytes % % Monocytes % % Eosinophils % % Basophils % % Neutrophils # (1.3-7.7) k/uL Lymphocytes # (1.0-4.8) k/uL Monocytes # (0-1.0) k/uL Eosinophils # (0-0.7) k/uL Basophils # (0-0.2) k/uL Hypochromasia Poikilocytosis Anisocytosis PT (9.0-12.0) sec INR (<1.2) APTT (22.0-30.0) sec Sodium (137-145) mmol/L Potassium (3.5-5.1) mmol/L Chloride (98-107) mmol/L Carbon Dioxide (22-30) mmol/L Anion Gap mmol/L BUN (7-17) mg/dL Creatinine (0.52-1.04) mg/dL Est GFR (CKD-EPI)AfAm (>60 ml/min/1.73 sqM) Est GFR (CKD-EPI)NonAf (>60 ml/min/1.73 sqM) Glucose (74-99) mg/dL Calcium (8.4-10.2) mg/dL Magnesium (1.6-2.3) mg/dL Total Bilirubin (0.2-1.3) mg/dL AST (14-36) U/L ALT (4-34) U/L Alkaline Phosphatase (38-126) U/L Troponin I 0.014 (0.000-0.034) ng/mL Total Protein (6.3-8.2) g/dL Albumin (3.5-5.0) g/dL Amylase (30-110) U/L Lipase (23-300) U/L - Radiology Data Radiology results: image reviewed (Chest x-ray shows chronic changes without acute abnormality) Disposition Clinical Impression: Chest wall pain Disposition: HOME SELF-CARE Condition: Stable Instructions (If sedation given, give patient instructions): Chest Wall Pain (ED) Additional Instructions: Please do follow-up with your primary care physician in the next day or 2 for recheck. Return for difficulty in breathing, increased pain, change or worsening symptoms or any other concerns. He will need further evaluation done as was previously advised. Anti-inflammatory prescription has been sent to your pharmacy Prescriptions: Ibuprofen [Motrin] 600 mg PO Q8HR PRN #12 tab PRN Reason: Pain Is patient prescribed a controlled substance at d/c from ED?: No Referrals: Franklyn Marino DO [Primary Care Provider] - 1-2 days Time of Disposition: 14:53
[2020-07-22 13:35] LABS: Anisocytosis Slight; Basophils % (A) 0 %; Eosinophils # (A) 0.1 k/uL (0-0.7); Eosinophils % (A) 1 %; HCT 29.3 % (34.0-46.0); HGB 8.8 gm/dL (11.4-16.0); Hypochromasia Marked; Lymphocytes # (A) 0.7 k/uL (1.0-4.8); Lymphocytes % (A) 12 %; MCH 28.2 pg (25.0-35.0); MCV 94.1 fL (80.0-100.0); Mean Platelet Volume 6.8; Monocytes # (A) 0.4 k/uL (0-1.0); Monocytes % (A) 6 %; Neutrophils # (A) 4.9 k/uL (1.3-7.7); Neutrophils % (A) 80 %; Platelet Count 347 k/uL (150-450); Poikilocytosis Slight; RBC 3.11 m/uL (3.80-5.40); RDW 17.2 % (11.5-15.5); WBC 6.2 k/uL (3.8-10.6)
[2020-07-22 13:42] LABS: ALT 15 U/L (4-34); AST 29 U/L (14-36); African American GFR (CKD) >90 (>60 ml/min/1.73 sqM); Albumin 3.2 g/dL (3.5-5.0); Alkaline Phosphatase 134 U/L (38-126); Amylase 45 U/L (30-110); Anion Gap 6 mmol/L; Blood Urea Nitrogen 16 mg/dL (7-17); Carbon Dioxide 24 mmol/L (22-30); Chloride 108 mmol/L (98-107); Glucose 104 mg/dL (74-99); Lipase 83 U/L (23-300); Magnesium 1.7 mg/dL (1.6-2.3); Non-African American GFR(CKD) 85 (>60 ml/min/1.73 sqM); Sodium 138 mmol/L (137-145); Total Bilirubin 0.3 mg/dL (0.2-1.3); Total Protein 5.5 g/dL (6.3-8.2)
[2020-07-22 13:46] LABS: Prothrombin Time 10.3 sec (9.0-12.0)
[2020-07-22 13:51] LABS: Partial Thromboplastin Time 20.6 sec (22.0-30.0)
--- NOTE | 2020-07-22 14:38 | XR ---
EXAMINATION TYPE: XR chest 2V DATE OF EXAM: 07/22/2020 COMPARISON: Chest x-ray July 17, 2020 HISTORY: History of atrial fibrillation with chest pain. TECHNIQUE: Frontal and lateral views of the chest are obtained. FINDINGS: There is chronic parenchymal change without suspicious new air space opacity, pleural effu yesi, or pneumothorax seen. The cardiac silhouette size is mildly enlarged with retrocardiac opacity reflecting known moderate to large size hiatal hernia. The osseous structures remain demineralized . Exaggerated kyphosis is present. There is metallic hardware from right shoulder surgery partially i xin. IMPRESSION: Chronic changes and mild cardiomegaly without acute pulmonary process.
[2020-07-22] MEDS ORDERED: ACET/COD 300 MG/30 MG STARTER PACK 6 TAB BTL PO STA (14:51)
[2020-07-22 15:20] VITALS: BP 117/68; PULSE 79; TEMP 97.3
== END 2020-07-22 15:20 | disposition home or self-care (01) ==
LOC: EC 12:38
DX: R07.89 Other chest pain (principal); I48.91 Unspecified atrial fibrillation; I48.92 Unspecified atrial flutter; K21.9 Gastro-esophageal reflux disease without esophagitis; I10 Essential (primary) hypertension; E78.5 Hyperlipidemia, unspecified; E03.9 Hypothyroidism, unspecified; F41.9 Anxiety disorder, unspecified; F32.9 Major depressive disorder, single episode, unspecified; F17.200 Nicotine dependence, unspecified, uncomplicated; Z79.890 Hormone replacement therapy; Z79.899 Other long term (current) drug therapy; Z91.048 Other nonmedicinal substance allergy status; Z88.7 Allergy status to serum and vaccine; Z88.2 Allergy status to sulfonamides; Z88.0 Allergy status to penicillin; Z88.1 Allergy status to other antibiotic agents; Z88.8 Allergy status to other drugs, medicaments and biological substances; Z96.653 Presence of artificial knee joint, bilateral; Z96.643 Presence of artificial hip joint, bilateral; Z96.611 Presence of right artificial shoulder joint
CPT/HCPCS: 36415; 93005; 80053; 82150; 83690; 83735; 84484; 85025; 85610; 85730; 71046; 99285; 96374; 96361 ×2; J2270

== ENCOUNTER 2020-07-25 15:04 | Inpatient (IN) | payer MEDICARE ==
[2020-07-25] MEDS ORDERED: KETOROLAC 15 MG/ML 1 ML VIAL IVP STA (15:26)
[2020-07-25] MEDS ORDERED: MORPHINE SULFATE 2 MG/ML SYRINGE IVP STA (15:26)
--- NOTE | 2020-07-25 15:52 | ED ---
General Adult HPI - General Chief complaint: Recheck/Abnormal Lab/Rx Stated complaint: Chest Pain Time Seen by Provider: 07/25/20 15:05 Source: patient, EMS, RN notes reviewed, old records reviewed Mode of arrival: EMS Limitations: no limitations - History of Present Illness Initial comments: This is a 80-year-old female presents emergency Department complaining of pleuritic chest pain. Patient states been ongoing for 5 weeks. Patient states she was diagnosed with pulmonary nodules but she's been unable to get them worked up and she is moving August 13 to in total be difficult to have them worked up there. Patient states she cannot bear the pain any longer and her primary medical care doctor sent her in. Patient denies any difficulty al athing. Patient denies any cough patient denies any fever chills per patient denies any abdominal pain patient denies nausea vomiting diarrhea. - Related Data Home Medications Medication Instructions Recorded Confirmed Citalopram Hydrobromide [CeleXA] 40 mg PO DAILY 05/12/18 07/25/20 ALPRAZolam [Xanax] 2 mg PO Q8H PRN 06/06/18 07/25/20 Levothyroxine Sodium [Synthroid] 50 mcg PO DAILY 06/06/18 07/25/20 traZODone HCL [Desyrel] 200 mg PO HS 11/09/18 07/25/20 oxyCODONE-APAP 10-325MG [Percocet 1 tab PO BID 06/29/19 07/25/20 10-325 mg] Potassium Chloride ER [K-Dur 20] 20 meq PO BID 07/17/20 07/25/20 atenoloL [Tenormin] 25 mg PO HS 07/17/20 07/25/20 Previous Rx's Medication Instructions Recorded Ibuprofen [Motrin] 600 mg PO Q8HR PRN #12 tab 07/22/20 Allergies Allergy/AdvReac Type Severity Reaction Status Date / Time adhesive tape Allergy Rash/Hives Verified 07/25/20 15:55 Influenza Virus Vaccines Allergy "MAKES HER Verified 07/25/20 15:55 FEEL SICK" Sulfa (Sulfonamide Allergy Rash/Hives Verified 07/25/20 15:55 Antibiotics) amoxicillin trihydrate AdvReac Diarrhea Verified 07/25/20 15:55 [From Augmentin] ciprofloxacin [From Cipro] AdvReac Unknown Verified 07/25/20 15:55 metronidazole [From Flagyl] AdvReac Unknown Verified 07/25/20 15:55 potassium clavulanate AdvReac Diarrhea Verified 07/25/20 15:55 [From Augmentin] quinidine AdvReac BLOOD CLOTS Verified 07/25/20 15:55 Review of Systems ROS Statement: Those systems with pertinent positive or pertinent negative responses have been documented in the HPI. ROS Other: All systems not noted in ROS Statement are negative. Past Medical History Past Medical History: Atrial Fibrillation, Atrial Flutter, GERD/Reflux, Hyperlipidemia, Hypertension, Mitral Valve Prolapse (MVP), Rheumatoid Arthritis (RA), Thyroid Disorder Additional Past Medical History / Comment(s): OTHER HX: 03/06/14, 03/30/14, 07/03/14, 07/29/14 with CDIFF colitis, HYPOTHYROID, MVP, urinary incontinence, PROLAPSED MITRAL VALVE- NO PROBLEMS FOR 30 YRS.anemia -requiring blood transfusion History of Any Multi-Drug Resistant Organisms: C-DIFF Date of last positivie culture/infection: 2015 MDRO Source:: Stool Past Surgical History: Adenoidectomy, Cholecystectomy, Hysterectomy, Joint Replacement, Orthopedic Surgery, Tonsillectomy Additional Past Surgical History / Comment(s): 02/18/16 total R hip arthroplasty. Other surgical HX: BILATERAL KNEE REPLACEMENT (2003-RIGHT & 2005 - LEFT); LOWER LUMBAR LAMINECTOMYL4-L5 (2007); LEFT HIP REPLACEMENT (2012); RIGHT SHOULDER REPLACEMENT (2008), left total knee arthroplasty revision. Bilateral cataracts with lens implants. FECAL TRASPLANT TX FOR C-DIFF three times.cataracts-lens implants hemmoroid removed Past Anesthesia/Blood Transfusion Reactions: No Reported Reaction Additional Past Anesthesia/Blood Transfusion Reaction / Comment(s): blood transfusion in past no reactions Past Psychological History: Anxiety, Depression Smoking Status: Current every day smoker Past Alcohol Use History: None Reported Past Drug Use History: None Reported - Past Family History Mother Family Medical History: Cancer Additional Family Medical History / Comment(s): Mother at age 60 with history of emphysema and lung cancer. Father Family Medical History: CVA/TIA Additional Family Medical History / Comment(s): Father at age 74 with problems with his larynx. Sister(s) Family Medical History: Unable to Obtain Daughter(s) Family Medical History: COPD, Myocardial Infarction ([place]) Additional Family Medical History / Comment(s): Mother at age 60 yrs of emphysema/lung CA Son(s) Family Medical History: Myocardial Infarction ([place]) Additional Family Medical History / Comment(s): Father at age 74yrs with "CVA of his larynx" General Exam - General Exam Comments Initial Comments: GENERAL: Patient is well-developed and well-nourished. Patient is nontoxic and well- hydrated and is in mild distress. ENT: Neck is soft and supple. No significant lymphadenopathy is noted. Oropharynx is clear. Moist mucous membranes. Neck has full range of motion without eliciting any pain. EYES: The sclera were anicteric and conjunctiva were pink and moist. Extraocular movements were intact and pupils were equal round and reactive to light. Eyelids were unremarkable. PULMONARY: Unlabored respirations. Good breath sounds bilaterally. No audible rales rhonchi or wheezing was noted. CARDIOVASCULAR: There is a regular rate and rhythm without any murmurs gallops or rubs. ABDOMEN: Soft and nontender with normal bowel sounds. No palpable organomegaly was noted. There is no palpable pulsatile mass. SKIN: Skin is clear with no lesions or rashes and otherwise unremarkable. NEUROLOGIC: Patient is alert and oriented x3. Cranial nerves II through XII are grossly intact. Motor and sensory are also intact. Normal speech, volume and content. Symmetrical smile. MUSCULOSKELETAL: Normal extremities with adequate strength and full range of motion. No lower extremity swelling or edema. No calf tenderness. LYMPHATICS: No significant lymphadenopathy is noted PSYCHIATRIC: Normal psychiatric evaluation. Limitations: no limitations Course Vital Signs 07/25/20 07/25/20 15:07 17:10 Temperature 99.0 F Pulse Rate 102 H 84 Respiratory 16 17 Rate Blood Pressure 100/72 94/60 O2 Sat by Pulse 99 97 Oximetry Medical Decision Making - Medical Decision Making EKG shows normal sinus rhythm at 99 bpm [place] interval is 208 QRSs 84 QT interval 362 QTC is 464. Patient's EKG shows no ST segment elevation or depression. Chest x-ray shows no acute abnormality. 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 I spoke with Dr. Pittman she agreed to admit the patient admitted the patient I wrote admitting orders. After the patient was admitted on the floor Dr. Stewart called us stated that this was his patient and he wanted the patient switched to an admission to him so I did that and I let Dr. Pittman know that the patient was no longer under her service. - Lab Data Result diagrams: 07/25/20 15:53 07/25/20 15:53 Lab Results 07/25/20 07/25/20 07/25/20 Range/Units 15:53 15:53 15:53 WBC 10.2 (3.8-10.6) k/uL RBC 3.07 L (3.80-5.40) m/uL Hgb 9.0 L (11.4-16.0) gm/dL Hct 27.6 L (34.0-46.0) % MCV 89.8 (80.0-100.0) fL MCH 29.4 (25.0-35.0) pg MCHC 32.7 (31.0-37.0) g/dL RDW 15.8 H (11.5-15.5) % Plt Count 369 (150-450) k/uL MPV 7.0 Neutrophils % 88 % Lymphocytes % 4 % Monocytes % 5 % Eosinophils % 2 % Basophils % 0 % Neutrophils # 9.0 H (1.3-7.7) k/uL Lymphocytes # 0.4 L (1.0-4.8) k/uL Monocytes # 0.5 (0-1.0) k/uL Eosinophils # 0.2 (0-0.7) k/uL Basophils # 0.0 (0-0.2) k/uL Hypochromasia Marked Poikilocytosis Slight PT 10.1 (9.0-12.0) sec INR 0.9 (<1.2) APTT 20.0 L (22.0-30.0) sec Sodium 135 L (137-145) mmol/L Potassium 4.3 (3.5-5.1) mmol/L Chloride 107 (98-107) mmol/L Carbon Dioxide 22 (22-30) mmol/L Anion Gap 6 mmol/L BUN 17 (7-17) mg/dL Creatinine 0.65 (0.52-1.04) mg/dL Est GFR (CKD-EPI)AfAm >90 (>60 ml/min/1.73 sqM) Est GFR (CKD-EPI)NonAf 85 (>60 ml/min/1.73 sqM) Glucose 96 (74-99) mg/dL Calcium 9.1 (8.4-10.2) mg/dL Magnesium 1.7 (1.6-2.3) mg/dL Total Bilirubin 0.3 (0.2-1.3) mg/dL AST 42 H (14-36) U/L ALT 21 (4-34) U/L Alkaline Phosphatase 145 H (38-126) U/L Troponin I (0.000-0.034) ng/mL Total Protein 5.7 L (6.3-8.2) g/dL Albumin 3.3 L (3.5-5.0) g/dL Coronavirus (PCR) (Not Detectd) 07/25/20 07/25/20 Range/Units 15:53 15:53 WBC (3.8-10.6) k/uL RBC (3.80-5.40) m/uL Hgb (11.4-16.0) gm/dL Hct (34.0-46.0) % MCV (80.0-100.0) fL MCH (25.0-35.0) pg MCHC (31.0-37.0) g/dL RDW (11.5-15.5) % Plt Count (150-450) k/uL MPV Neutrophils % % Lymphocytes % % Monocytes % % Eosinophils % % Basophils % % Neutrophils # (1.3-7.7) k/uL Lymphocytes # (1.0-4.8) k/uL Monocytes # (0-1.0) k/uL Eosinophils # (0-0.7) k/uL Basophils # (0-0.2) k/uL Hypochromasia Poikilocytosis PT (9.0-12.0) sec INR (<1.2) APTT (22.0-30.0) sec Sodium (137-145) mmol/L Potassium (3.5-5.1) mmol/L Chloride (98-107) mmol/L Carbon Dioxide (22-30) mmol/L Anion Gap mmol/L BUN (7-17) mg/dL Creatinine (0.52-1.04) mg/dL Est GFR (CKD-EPI)AfAm (>60 ml/min/1.73 sqM) Est GFR (CKD-EPI)NonAf (>60 ml/min/1.73 sqM) Glucose (74-99) mg/dL Calcium (8.4-10.2) mg/dL Magnesium (1.6-2.3) mg/dL Total Bilirubin (0.2-1.3) mg/dL AST (14-36) U/L ALT (4-34) U/L Alkaline Phosphatase (38-126) U/L Troponin I <0.012 (0.000-0.034) ng/mL Total Protein (6.3-8.2) g/dL Albumin (3.5-5.0) g/dL Coronavirus (PCR) Not Detected (Not Detectd) Disposition Clinical Impression: Pleuritic chest pain, Lung nodules Disposition: ADMITTED IP TO THIS [facility] Time of Disposition: 18:18
[2020-07-25 16:13] LABS: Basophils % (A) 0 %; Eosinophils # (A) 0.2 k/uL (0-0.7); Eosinophils % (A) 2 %; HCT 27.6 % (34.0-46.0); Hypochromasia Marked; Lymphocytes # (A) 0.4 k/uL (1.0-4.8); Lymphocytes % (A) 4 %; MCH 29.4 pg (25.0-35.0); MCHC 32.7 g/dL (31.0-37.0); MCV 89.8 fL (80.0-100.0); Monocytes # (A) 0.5 k/uL (0-1.0); Monocytes % (A) 5 %; Neutrophils % (A) 88 %; Platelet Count 369 k/uL (150-450); Poikilocytosis Slight; RBC 3.07 m/uL (3.80-5.40); RDW 15.8 % (11.5-15.5); WBC 10.2 k/uL (3.8-10.6)
[2020-07-25 16:25] LABS: ALT 21 U/L (4-34); AST 42 U/L (14-36); African American GFR (CKD) >90 (>60 ml/min/1.73 sqM); Albumin 3.3 g/dL (3.5-5.0); Alkaline Phosphatase 145 U/L (38-126); Anion Gap 6 mmol/L; Blood Urea Nitrogen 17 mg/dL (7-17); Calcium 9.1 mg/dL (8.4-10.2); Carbon Dioxide 22 mmol/L (22-30); Chloride 107 mmol/L (98-107); Glucose 96 mg/dL (74-99); Magnesium 1.7 mg/dL (1.6-2.3); Non-African American GFR(CKD) 85 (>60 ml/min/1.73 sqM); Potassium 4.3 mmol/L (3.5-5.1); Sodium 135 mmol/L (137-145); Total Bilirubin 0.3 mg/dL (0.2-1.3); Total Protein 5.7 g/dL (6.3-8.2)
--- NOTE | 2020-07-25 16:44 | XR ---
EXAMINATION TYPE: XR chest 2V DATE OF EXAM: 07/25/2020 COMPARISON: Chest x-ray 3 days ago and older studies. HISTORY: Chest pain and body aches. TECHNIQUE: Frontal and lateral views of the chest are obtained. FINDINGS: There is chronic parenchymal changes bilaterally without suspicious new focal air space op acity, pleural effusion, or pneumothorax seen. The cardiac silhouette size is stable and mildly enla rged. Retrocardiac opacity consistent with moderate size hiatal hernia is redemonstrated The osseous structures are demineralized. Surgical changes right shoulder level redemonstrated. IMPRESSION: Chronic changes and mild cardiomegaly without acute pulmonary process. No significant ch cassia from prior.
[2020-07-25 16:59] LABS: INR 0.9 (<1.2); Prothrombin Time 10.1 sec (9.0-12.0)
[2020-07-25] MEDS ORDERED: SODIUM CHLORIDE 0.9% 1,000 ML IV ONE (18:19)
[2020-07-25] MEDS ORDERED: RX INFO: IV CONTRAST WAS GIVEN 1 EACH MISC MISCELLANE PRN (20:50)
[2020-07-25] MEDS: ALPRAZolam 1 MG TAB PO PRN (22:51)
--- NOTE | 2020-07-25 23:10 | CT ---
EXAMINATION TYPE: CT chest w con DATE OF EXAM: 07/25/2020 COMPARISON: 07/17/2020 HISTORY: Lung nodule, plerurtic pain CT DLP: 456.2 mGycm Automated exposure control for dose reduction was used. CONTRAST: Performed with IV Contrast, patient injected with 100 mL of Isovue 300. Images obtained from the thoracic inlet to the diaphragm with IV contrast. FINDINGS: There is some mild pleural thickening at the right posterior lung apex adjacent to the major fissure. There is very low density 9 mm nodule in the lateral right upper lobe. There is small left pleural e ffusion. There is 1.5 cm focus of pleural thickening in the posterior aspect of the right lower lobe. There are multiple scattered small nodular densities in the lower lung mattson. These have low attenu ation and measure up to 6 mm. The heart size is fairly normal. There is large hiatal hernia. There is no mediastinal adenopathy. There are no hilar masses. There is some osteopenia. There is anterior we dging of multiple thoracic vertebra up to 25%. There is a mild thoracic kyphosis. IMPRESSION: Right upper lobe low-density nodule not changed compared to recent exam. Pleural thickening as above. Pleural thickening unchanged. There is small left pleural effusion uncha nged. Multiple tiny lower lobe pulmonary nodules unchanged. Thoracic compression fractures not changed. Overall I do not have a high suspicion of malignancy.
[2020-07-25] MEDS: atenoloL 25 MG TAB PO SCH (23:12)
[2020-07-25] MEDS: traZODone HCL 100 MG TAB PO SCH (23:13)
[2020-07-26] MEDS: KETOROLAC 15 MG/ML 1 ML VIAL IVP SCH ×4 (02:16→17:15)
[2020-07-26] MEDS: LEVOTHYROXINE 50 MCG TAB PO SCH (05:19)
[2020-07-26] MEDS: CITALOPRAM HYDROBROMIDE 20 MG TAB PO SCH (08:50)
[2020-07-26] MEDS: POTASSIUM CHLORIDE ER 20 MEQ TAB.ER PO SCH ×2 (08:51→20:48)
--- NOTE | 2020-07-26 10:29 | P.CONS ---
History of Present Illness - Reason for Consult Consult date: 07/26/20 pulmonary Nodules Requesting physician: Alex Serrano - Chief Complaint chest pain - History of Present Illness Oncologic and Hematologic History: Ms Trejo is a Pleasant white female, initially seen in consult at [facility] on 03/16/18. She has a long-standing history of iron def anemia, that was diagnosed initially in 2012. She has had extensive workup including EGD and colonoscopy in 2014, and then EGD again in 2016. These were overall negative. The patient had been on oral iron supplementation, with somewhat irregular use due to constipation. During that episode in 2016 she had inquired about 6-8 units of packed red blood cells. The patient was admitted this time, with increasing shortness of breath and progressive weakness. She was found to have a hemoglobin of 5.2 with further drop to 4.4. She was treated with multiple blood transfusions, with iron studies again suggestive of iron deficiency. Though MMA was normal, B12 had shown a significant drop compared to 2017. The patient was discharged with a plan for IV iron supplementation as an outpatient. During that admission, she also had a capsule endoscopy that was negative The patient was unable to keep appointments in the office, due to difficulties with transportation and weakness. She was admitted to the hospital again on 05/11/18 with hemoglobin in the 5 range and was discharged after transfusion. She, unfortunately, again missed appointment due to transportation issues and was ultimately seen for her first office visit on 06/06/18. 06/22/18-Pt here for f/u after hospitalization admitted 06/07/18 for Hgb around 5, she received 3 units of PRBCs as well as 3-4 doses of parenteral iron, home care is doing labs, her Hgb was 9.6 yesterday. Pt has c/o chronic fatigue, she thinks she may be mildly depressed, no suicidial ideation, denies F,N,V, diarrhea, constipation or pain, no other c/o/, questions or concerns. as above. W/U for PNH was negative. ASA was stopped at her visit in 05/31. Her Hgb was improved to 13 in 07/29. 11/02/18: Diarrhea with incontinence last 4 days (5-6 times a day), Rectum pain, urine incontininence, As above. Her iron studies showed sat > 20% though ferritin was in the low end of normal. interestingly hemoglobin has remained from 8 into the 10 range during this time CT of the abdomen and pelvis in 12/29 showed a large portion of the stomach herniated into the thorax. No other abnormality was noted He most recent Iv iron was in -03/30. She continued on PO iron 1 /d Telemedicine Visit 07/19/19: ( Audio Visual) the patient reported a hospital admission in late 06/29, for 4 days, for p neumonia. She was treated with antibiotics and completed a course post discharge. However since then, she has generally been weaker overall, with decreased appetite and motivation. She continues to have shortness of breath on exertion though this is improved from hospitalization. She denied any fevers/chills/nausea/vomiting/obvious bleeding. Bowel movements are regular. Joint issues are persistent and stable. She is mostly using a walker for ambulation. A intrathecal pain pump implantation was performed in 05/01. Review of systems otherwise as per HPI and negative out of 10. as above. The patient again required IV iron in 07/30 as hemoglobin had dropped into the 8 range, along with drop in iron stores. the patient was admitted to the hospital in early 10/29 because of bleeding per rectum. She had a colonoscopy with polyps removed that were benign. She was noted to have external hemorrhoids that were felt to be the bleeding. She underwent hemorrhoid excision on 10/18/19. Pathology however showed malignant melanoma extending to the deep margins at least 8 mm in thickness. PET scan that was negative. She was referred to the [facility]. Surgical oncology. She was seen by them and also by dermatology. She had an MRI of the brain that was negative. On exam she was found to have no residual disease. After careful evaluation, it was decided to follow her with patient with regular skin exams and imaging Last Visit - telemedicine 07/16/20: She denied any fevers/chills/nausea/vomiting/obvious bleeding. she complains of some increased weakness and fatigue, but denied any chest pain or dizziness. She still performing her ADLs. Bowel movements are regular, with intermittent diarrhea. she does seem to have some bowel hyperactivity after eating. Joint issues are persistent and stable. She is mostly using a walker for ambulation. A intrathecal pain pump implantation was performed in 05/01. Review of systems otherwise as per HPI and negative out of 10. Review of Systems All systems: negative Constitutional: Reports as per HPI Past Medical History Past Medical History: Atrial Fibrillation, Atrial Flutter, GERD/Reflux, Hyperlipidemia, Mitral Valve Prolapse (MVP), Rheumatoid Arthritis (RA), Thyroid Disorder Additional Past Medical History / Comment(s): OTHER HX: 03/06/14, 03/30/14, 07/03/14, 07/29/14 with CDIFF colitis, HYPOTHYROID, MVP, urinary incontinence, PROLAPSED MITRAL VALVE- NO PROBLEMS FOR 30 YRS.anemia -requiring blood transfusion hypotension History of Any Multi-Drug Resistant Organisms: C-DIFF Year Discovered:: 2016 MDRO Source:: Stool Past Surgical History: Adenoidectomy, Cholecystectomy, Hysterectomy, Joint Replacement, Orthopedic Surgery, Tonsillectomy Additional Past Surgical History / Comment(s): 02/18/16 total R hip arthroplasty. Other surgical HX: BILATERAL KNEE REPLACEMENT (2003-RIGHT & 2005 - LEFT); LOWER LUMBAR LAMINECTOMYL4-L5 (2007); LEFT HIP REPLACEMENT (2012); RIGHT SHOULDER REPLACEMENT (2008), left total knee arthroplasty revision. Bilateral cataracts with lens implants. FECAL TRASPLANT TX FOR C-DIFF three times.cataracts-lens implants hemmoroid removed Past Anesthesia/Blood Transfusion Reactions: No Reported Reaction Additional Past Anesthesia/Blood Transfusion Reaction / Comm: blood transfusion in past no reactions Past Psychological History: Anxiety, Depression Additional Psychological History / Comment(s): Pt resides in her own home. Her nephew who is very ill stays with pt. She uses a walker to ambulate. She has a nebulizer, She is able to drive. Smoking Status: Current every day smoker Past Alcohol Use History: None Reported Additional Past Alcohol Use History / Comment(s): Patient has smoked since 1954- 5 cig per day. No alcohol use or abuse. Past Drug Use History: None Reported - Past Family History Mother Family Medical History: Cancer Additional Family Medical History / Comment(s): Mother at age 60 with his tory of emphysema and lung cancer. Father Family Medical History: CVA/TIA Additional Family Medical History / Comment(s): Father at age 74 with problems with his larynx. Sister(s) Family Medical History: Unable to Obtain Daughter(s) Family Medical History: COPD, Myocardial Infarction (SC) Additional Family Medical History / Comment(s): Mother at age 60 yrs of emphysema/lung CA Son(s) Family Medical History: Myocardial Infarction (SC) Additional Family Medical History / Comment(s): Father at age 74yrs with "CVA of his larynx" Medications and Allergies Home Medications Medication Instructions Recorded Confirmed Type Citalopram Hydrobromide [CeleXA] 40 mg PO DAILY 05/12/18 07/25/20 History ALPRAZolam [Xanax] 2 mg PO Q8H PRN 06/06/18 07/25/20 History Levothyroxine Sodium [Synthroid] 50 mcg PO DAILY 06/06/18 07/25/20 History traZODone HCL [Desyrel] 200 mg PO HS 11/09/18 07/25/20 History oxyCODONE-APAP 10-325MG [Percocet 1 tab PO BID 06/29/19 07/25/20 History 10-325 mg] Potassium Chloride ER [K-Dur 20] 20 meq PO BID 07/17/20 07/25/20 History atenoloL [Tenormin] 25 mg PO HS 07/17/20 07/25/20 History Ibuprofen [Motrin] 600 mg PO Q8HR PRN #12 tab 07/22/20 07/25/20 Rx Allergies Allergy/AdvReac Type Severity Reaction Status Date / Time adhesive tape Allergy Rash/Hives Verified 07/25/20 15:55 Influenza Virus Vaccines Allergy "MAKES HER Verified 07/25/20 15:55 FEEL SICK" latex Allergy Rash/Hives Verified 07/26/20 03:30 Sulfa (Sulfonamide Allergy Rash/Hives Verified 07/25/20 15:55 Antibiotics) amoxicillin trihydrate AdvReac Diarrhea Verified 07/25/20 15:55 [From Augmentin] ciprofloxacin [From Cipro] AdvReac Unknown Verified 07/25/20 15:55 metronidazole [From Flagyl] AdvReac Unknown Verified 07/25/20 15:55 potassium clavulanate AdvReac Diarrhea Verified 07/25/20 15:55 [From Augmentin] quinidine AdvReac BLOOD CLOTS Verified 07/25/20 15:55 Physical Exam Vitals: Vital Signs Temp Pulse Pulse Resp BP BP Pulse Ox 07/26/20 08:46 98.1 F 66 16 112/62 97 07/26/20 02:13 98 F 65 13 91/62 95 07/25/20 20:00 97.8 F 78 12 91/59 97 07/25/20 17:10 84 17 94/60 97 07/25/20 15:07 99.0 F 102 H 16 100/72 99 Intake and Output 07/25/20 07/26/20 07/26/20 22:59 06:59 14:59 Intake Total 800 1950 Balance 800 1950 Intake: Intake, IV Titration 150 750 Amount Sodium Chloride 0.9% 1, 150 750 000 ml @ 75 mls/hr IV . [id number] ONE Rx#:[id number] Oral 650 1200 Other: # Voids 2 Weight 76.657 kg - Constitutional General appearance: cooperative, no acute distress - EENT Eyes: EOMI, PERRLA ENT: hard of hearing, NA/AT, normal oropharynx - Neck Neck: normal ROM - Respiratory Respiratory: left: rhonchi, bilateral: diminished (no increased effort) - Cardiovascular Rhythm: irregularly irregular - Gastrointestinal General gastrointestinal: soft, tenderness - Integumentary Integumentary: pale - Neurologic Neurologic: CNII-XII intact - Musculoskeletal Musculoskeletal: generalized weakness - Psychiatric Psychiatric: A&O x's 3, appropriate affect, intact judgment & insight Results CBC & Chem 7: 07/26/20 10:46 07/26/20 10:46 Labs: Abnormal Lab Results - Last 24 Hours (Table) 07/25/20 07/25/20 07/25/20 Range/Units 15:53 15:53 15:53 RBC 3.07 L (3.80-5.40) m/uL Hgb 9.0 L (11.4-16.0) gm/dL Hct 27.6 L (34.0-46.0) % RDW 15.8 H (11.5-15.5) % Neutrophils # 9.0 H (1.3-7.7) k/uL Lymphocytes # 0.4 L (1.0-4.8) k/uL APTT 20.0 L (22.0-30.0) sec Sodium 135 L (137-145) mmol/L AST 42 H (14-36) U/L Alkaline Phosphatase 145 H (38-126) U/L Total Protein 5.7 L (6.3-8.2) g/dL Albumin 3.3 L (3.5-5.0) g/dL Chest x-ray: report reviewed CT scan - chest: report reviewed Assessment and Plan (1) Normocytic anemia Current Visit: Yes Status: Acute Code(s): D64.9 - ANEMIA, UNSPECIFIED SNOMED Code(s): 939784914 (2) Malignant melanoma of rectum Current Visit: Yes Status: Acute Code(s): C20 - MALIGNANT NEOPLASM OF RECTUM SNOMED Code(s): 126334333 (3) Lung nodules Current Visit: Yes Status: Acute Code(s): R91.8 - OTHER NONSPECIFIC ABNORMAL FINDING OF LUNG FIELD SNOMED Code(s): 805864917 Plan: Assessment and Recommendations: Newly Identified subcentimeter pulmonary nodules (numerous): - With known history of melanoma consideration of a metastatic process must be considered - Agree with outpatient PET scan for further evaluation as CT scan unable to determine etiology and size limits ability to undergo biopsy at this time - Ultimately a tissue biopsy will be needed, imaging of abdomen and pelvis is recommended for further staging and evaluation of other potential areas amicable to biopsy - Abdominal Ultrasound today Normocytic Anemia: Chronic - Limit NSAIDS with known GI blood loss and pathologies - Supportive care with other measures preferred - Recheck Iron studies and replace if indicated Melanoma of the Rectal Skin: - Diagnosed in 2019, surgical resection, limited disease no residual disease - Continues to follow at [facility] for surveillance and last CT 05/2020 RANDI Multiple liver Lesions: - With newly found pulmonary nodules and new hypoechoic liver lesions Right up to 2.5cm, Left approx 1.5 per ultrasound - Will ask IR to obtain tissue biopsy of right liver lesion Physician Attest: I have completed the full history and physical and agree with above dictation, dictated as a ascribe.
[2020-07-26 11:36] LABS: ALT 18 U/L (4-34); AST 31 U/L (14-36); African American GFR (CKD) >90 (>60 ml/min/1.73 sqM); Albumin 2.8 g/dL (3.5-5.0); Alkaline Phosphatase 113 U/L (38-126); Anion Gap 5 mmol/L; Blood Urea Nitrogen 18 mg/dL (7-17); Calcium 8.7 mg/dL (8.4-10.2); Carbon Dioxide 25 mmol/L (22-30); Chloride 107 mmol/L (98-107); Glucose 93 mg/dL (74-99); Non-African American GFR(CKD) 81 (>60 ml/min/1.73 sqM); Potassium 4.7 mmol/L (3.5-5.1); Sodium 137 mmol/L (137-145); Total Bilirubin 0.3 mg/dL (0.2-1.3)
[2020-07-26 11:39] LABS: Basophils % (A) 0 %; Eosinophils # (A) 0.1 k/uL (0-0.7); Eosinophils % (A) 1 %; HCT 24.7 % (34.0-46.0); HGB 7.8 gm/dL (11.4-16.0); Hypochromasia Marked; Lymphocytes # (A) 0.7 k/uL (1.0-4.8); Lymphocytes % (A) 10 %; MCH 28.8 pg (25.0-35.0); MCHC 31.4 g/dL (31.0-37.0); MCV 91.7 fL (80.0-100.0); Mean Platelet Volume 7.2; Monocytes # (A) 0.5 k/uL (0-1.0); Monocytes % (A) 7 %; Neutrophils # (A) 5.4 k/uL (1.3-7.7); Neutrophils % (A) 81 %; Platelet Count 335 k/uL (150-450); Poikilocytosis Slight; RDW 15.8 % (11.5-15.5); WBC 6.7 k/uL (3.8-10.6)
[2020-07-26 12:16] LABS: Reticulocyte % 5.9 % (0.5-2.0)
--- NOTE | 2020-07-26 16:41 | US ---
EXAMINATION TYPE: US abdomen complete DATE OF EXAM: 07/26/2020 COMPARISON: 05/23/2020 CLINICAL HISTORY: 80-year-old female liver hx of melanoma, new pulm nodules. GB removed. TECHNIQUE: Multiple sonographic images of the abdomen are obtained. FINDINGS: EXAM MEASUREMENTS: Liver Length: 17.1 cm CBD: 0.4 cm Spleen: 11.4 cm Right Kidney: 9.5 x 4.3 x 3.8 cm Left Kidney: 9.1 x 3.8 x 4.7 cm Truck Hopper notes:limited due to bowel gas and patients pain Pancreas: Suboptimal visualization of the pancreatic tail due to shadowing from bowel gas. Visualize d pancreatic body shows no gross abnormality. Liver: Multiple hypoechoic lesions seen throughout liver appear new. Largest on right = 2.5 x 2.1 x 2.1 cm. Largest on left = 1.3 x 1.3 x 1.0 cm. Gallbladder: Surgically absent Evidence for sonographic Hernandez's sign: No CBD: wnl Spleen: wnl Right Kidney: No hydronephrosis, limited visualization due to bowel gas Left Kidney: No hydronephrosis, limited visualization due to bowel gas Upper IVC: wnl Abd Aorta: limited visualization of proximal portion of Aorta IMPRESSION: There appear to be new hepatic lesions, possible metastases measuring up to 2.5 cm in the right lobe and 1.3 cm in the left lobe. Limited exam due to bowel gas and patient's pain.
[2020-07-26 20:32] LABS: Folate, Serum 9.3 ng/mL
[2020-07-26] MEDS: traZODone HCL 100 MG TAB PO SCH (20:48)
[2020-07-26] MEDS: MORPHINE SULFATE 2 MG/ML SYRINGE IVP PRN (20:49)
[2020-07-26] MEDS: atenoloL 25 MG TAB PO SCH (20:50)
[2020-07-26 21:05] LABS: % Iron Saturation 6.07 (12.00-45.00); Iron 13 ug/dL (50-170); Total Iron Binding Capacity 214 ug/dL (228-460)
[2020-07-26] MEDS: ALPRAZolam 1 MG TAB PO PRN (22:24)
[2020-07-27] MEDS: KETOROLAC 15 MG/ML 1 ML VIAL IVP SCH ×5 (03:33→22:57)
[2020-07-27] MEDS: MORPHINE SULFATE 2 MG/ML SYRINGE IVP PRN (04:55)
[2020-07-27] MEDS: LEVOTHYROXINE 50 MCG TAB PO SCH (06:07)
[2020-07-27] MEDS: CITALOPRAM HYDROBROMIDE 20 MG TAB PO SCH (11:10)
[2020-07-27] MEDS: POTASSIUM CHLORIDE ER 20 MEQ TAB.ER PO SCH ×2 (11:11→21:59)
[2020-07-27 14:02] LABS: Basophils % (A) 1 %; Eosinophils # (A) 0.2 k/uL (0-0.7); Eosinophils % (A) 2 %; HCT 29.6 % (34.0-46.0); HGB 8.5 gm/dL (11.4-16.0); Hypochromasia Marked; Lymphocytes # (A) 0.8 k/uL (1.0-4.8); Lymphocytes % (A) 12 %; MCH 27.2 pg (25.0-35.0); MCHC 28.9 g/dL (31.0-37.0); MCV 94.2 fL (80.0-100.0); Mean Platelet Volume 7.9; Monocytes # (A) 0.3 k/uL (0-1.0); Monocytes % (A) 5 %; Neutrophils # (A) 5.3 k/uL (1.3-7.7); Neutrophils % (A) 79 %; Platelet Count 310 k/uL (150-450); Poikilocytosis Slight; RBC 3.14 m/uL (3.80-5.40); RDW 15.6 % (11.5-15.5); WBC 6.7 k/uL (3.8-10.6)
--- NOTE | 2020-07-27 17:29 | HP ---
HISTORY AND PHYSICAL DATE OF SERVICE: 07/25/2020 HISTORY OF PRESENT ILLNESS: 80-year-old white female came in with pleuritic-type chest pain beginning in the upper abdomen, left chest wall. She has history of iron deficiency anemia from unclear etiology in the past. Possibly B12 deficiency in the past. She comes in. She is worried about having some kind of cancer. Hemoglobin on admission was 9.6. She has chest pain. She is worried about pleuritic chest pain. She had a hemorrhoid excision 10/18/2019, which showed malignant melanoma of the rectum 8 mm thickness. PET scan at the time was negative. Ultrasound on this admission shows liver lesions. MRI of the brain at that time was negative. PAST MEDICAL HISTORY: Atrial fibrillation, atrial flutter, hypertension, mitral valve prolapse, rheumatoid arthritis, hypothyroidism, urinary incontinence. PAST SURGICAL HISTORY: Adenoidectomy, cholecystectomy, hysterectomy, joint replacement, orthopedic surgery, tonsillectomy, total right hip arthroscopy, bilateral knee replacement, lower lumbar laminectomy, right shoulder replacement, history of anxiety, depression. No alcohol abuse. FAMILY HISTORY: Mother with cancer, COPD. Father CVA/ TIA. Daughter, myocardial infarction, son myocardial infarction. MEDICATIONS: Home medicines Xanax, Celexa, Synthroid, Desyrel, Percocet, potassium chloride, Tenormin, Motrin. ALLERGIES: INFLUENZA, BEES, SULFA, AMOXICILLIN, FLAGYL, AUGMENTIN, QUINIDINE. PHYSICAL EXAMINATION: Vital signs: Temp 98.1, respiratory 16-18, pulse 60s to 70s. Blood pressure 90s to 112. CARDIOVASCULAR S1-S2. LUNGS decreased breath sounds. MUSCULOSKELETAL: Chest palpation right upper quadrant and left upper quadrant and over the chest wall in the lower thoracic ribs. GI soft. CARDIOVASCULAR irregular regular rhythm. MUSCULOSKELETAL generalized weakness 3 to 4/5 to all 4 extremities. PSYCH: Alert and oriented x3. NEUROLOGIC: Cranial nerves are intact. LABORATORY DATA: Hemoglobin 7.8, white count 6.7, BUN 18, creatinine 0.72. CT of the chest shows pulmonary nodules. ASSESSMENT: 1. Normocytic anemia. 2. Atypical chest pain. Get Cardiology, Pulmonary to see. 3. Malignant melanoma of the cecum. 4. Lung nodules. 5. Liver nodules. 6. Melanoma of the rectum. 7. Multiple liver lesions. Prognosis is guarded. She will need biopsies of these. MMODL / IJN: [id number] /
[2020-07-27] MEDS: oxyCODONE-APAP 10-325MG 1 EACH TAB PO PRN ×2 (17:35→22:01)
--- NOTE | 2020-07-27 17:37 | PN ---
PROGRESS NOTE 80-year-old white female who is complaining of pleuritic-type chest pain. Steroids have been ordered. IV Solu-Medrol 40 q.8h. Temp 97.8, pulse 63, respiratory 16-18, O2 98% on room air. CARDIOVASCULAR S1, S2. LUNGS scattered wheeze x4. HEMATOLOGY: Negative Homans. PSYCH: Fair mood and affect. ASSESSMENT: 1. Chronic obstructive pulmonary disease exacerbation. 2. Pulmonary nodules. 3. Liver lesions. She will have to get intensive radiology to biopsy these prior to going home and then she is going to go to [facility] in [place]. Prognosis guarded. MMODL / IJN: [id number] /
--- NOTE | 2020-07-27 17:54 | PN ---
PROGRESS NOTE ADDENDUM: 80-year-old white female who is a patient of Dr. Angel Stewart as well as Dr. Eliel Machuca. The family called me and wanted me to admit her 3 days ago, which I did and I have been seeing her since. I have been seeing her over the last 2 years. She is not a patient of Dr. Marino who is on the computer apparently. Anyway, family asked me to take care of her and the which I am doing. She is scheduled to get needle biopsies of the liver. She is getting pain medicine. She will be made full admit. Discussed case with the home health care case manager from [place] number, made full admit. MMODL / IJN: [id number] /
[2020-07-27] MEDS: methylPREDNISolone SOD SUCCI 40 MG/ML 1 ML VIAL IV SCH ×2 (21:50→22:57)
[2020-07-27] MEDS: atenoloL 25 MG TAB PO SCH (21:54)
[2020-07-27] MEDS: traZODone HCL 100 MG TAB PO SCH (21:59)
[2020-07-27] MEDS: ALPRAZolam 1 MG TAB PO PRN (22:01)
[2020-07-28] MEDS: KETOROLAC 15 MG/ML 1 ML VIAL IVP SCH ×3 (04:04→13:37)
[2020-07-28] MEDS: LEVOTHYROXINE 50 MCG TAB PO SCH (04:53)
[2020-07-28] MEDS: oxyCODONE-APAP 10-325MG 1 EACH TAB PO PRN ×4 (04:53→23:26)
[2020-07-28] MEDS: methylPREDNISolone SOD SUCCI 40 MG/ML 1 ML VIAL IV SCH (08:43)
[2020-07-28] MEDS: CITALOPRAM HYDROBROMIDE 20 MG TAB PO SCH (09:34)
[2020-07-28] MEDS: POTASSIUM CHLORIDE ER 20 MEQ TAB.ER PO SCH ×2 (09:34→20:29)
[2020-07-28] MEDS: predniSONE 20 MG TAB PO SCH (10:16)
[2020-07-28] MEDS: atenoloL 25 MG TAB PO SCH (20:29)
[2020-07-28] MEDS: traZODone HCL 100 MG TAB PO SCH (20:29)
[2020-07-28] MEDS: ALPRAZolam 1 MG TAB PO PRN (21:40)
[2020-07-29 04:36] LABS: Basophils % (A) 0 %; Eosinophils # (A) 0.1 k/uL (0-0.7); Eosinophils % (A) 1 %; HCT 20.5 % (34.0-46.0); Hypochromasia Marked; Lymphocytes # (A) 0.8 k/uL (1.0-4.8); Lymphocytes % (A) 10 %; MCH 27.1 pg (25.0-35.0); MCHC 29.2 g/dL (31.0-37.0); MCV 92.7 fL (80.0-100.0); Mean Platelet Volume 6.9; Monocytes # (A) 0.5 k/uL (0-1.0); Monocytes % (A) 5 %; Neutrophils # (A) 7.1 k/uL (1.3-7.7); Neutrophils % (A) 83 %; Platelet Count 367 k/uL (150-450); Poikilocytosis Slight; RBC 2.22 m/uL (3.80-5.40); RDW 15.6 % (11.5-15.5); WBC 8.6 k/uL (3.8-10.6)
[2020-07-29 04:50] LABS: ALT 14 U/L (4-34); AST 25 U/L (14-36); African American GFR (CKD) >90 (>60 ml/min/1.73 sqM); Albumin 2.6 g/dL (3.5-5.0); Alkaline Phosphatase 96 U/L (38-126); Anion Gap 5 mmol/L; Blood Urea Nitrogen 38 mg/dL (7-17); Calcium 8.4 mg/dL (8.4-10.2); Carbon Dioxide 23 mmol/L (22-30); Chloride 105 mmol/L (98-107); Glucose 120 mg/dL (74-99); Non-African American GFR(CKD) 84 (>60 ml/min/1.73 sqM); Sodium 133 mmol/L (137-145); Total Bilirubin 0.2 mg/dL (0.2-1.3); Total Protein 4.7 g/dL (6.3-8.2)
[2020-07-29] MEDS: LEVOTHYROXINE 50 MCG TAB PO SCH (06:07)
[2020-07-29] MEDS: oxyCODONE-APAP 10-325MG 1 EACH TAB PO PRN ×3 (07:29→21:42)
[2020-07-29] MEDS: HYDROmorphone 0.5 MG/0.5 ML SYRINGE IM PRN ×2 (10:15→16:13)
[2020-07-29] MEDS: CITALOPRAM HYDROBROMIDE 20 MG TAB PO SCH (10:15)
[2020-07-29] MEDS: POTASSIUM CHLORIDE ER 20 MEQ TAB.ER PO SCH ×2 (10:15→21:41)
[2020-07-29] MEDS: predniSONE 20 MG TAB PO SCH (10:15)
--- NOTE | 2020-07-29 11:23 | P.PN ---
Subjective Progress Note Date: 07/29/20 Principal diagnosis: Concern for metastatic Cancer Hemoblobin 6 today, transfusion support ordered, Iron levels decreased and replacement also ordered Objective - Vital Signs Vital signs: Vital Signs Temp 97.2 F L 07/29/20 07:30 Pulse 96 07/29/20 07:30 Resp 18 07/29/20 07:30 BP 89/50 07/29/20 07:30 Pulse Ox 97 07/29/20 07:30 Intake & Output 07/28/20 07/29/20 07/29/20 18:59 06:59 18:59 Intake Total 240 Balance 240 Intake: Oral 240 Other: Voiding Method Toilet Toilet # Voids 2 2 # Bowel Movements 1 - Exam - Constitutional General appearance: cooperative, no acute distress - EENT Eyes: EOMI, PERRLA ENT: hard of hearing, NA/AT, normal oropharynx - Neck Neck: normal ROM - Respiratory Respiratory: left: rhonchi, bilateral: diminished (no increased effort) - Cardiovascular Rhythm: irregularly irregular - Gastrointestinal General gastrointestinal: soft, tenderness - Integumentary Integumentary: pale - Neurologic Neurologic: CNII-XII intact - Musculoskeletal Musculoskeletal: generalized weakness - Psychiatric Psychiatric: A&O x's 3, appropriate affect, intact judgment & insight - Labs CBC & Chem 7: 07/29/20 04:08 07/29/20 04:08 Labs: Abnormal Lab Results - Last 24 Hours (Table) 07/29/20 07/29/20 07/29/20 Range/Units 04:08 04:08 06:03 RBC 2.22 L (3.80-5.40) m/uL Hgb 6.0 L* D (11.4-16.0) gm/dL Hct 20.5 L (34.0-46.0) % MCHC 29.2 L (31.0-37.0) g/dL RDW 15.6 H (11.5-15.5) % Lymphocytes # 0.8 L (1.0-4.8) k/uL Sodium 133 L (137-145) mmol/L BUN 38 H (7-17) mg/dL Glucose 120 H (74-99) mg/dL Total Protein 4.7 L (6.3-8.2) g/dL Albumin 2.6 L (3.5-5.0) g/dL Crossmatch See Detail Assessment and Plan (1) Normocytic anemia Current Visit: Yes Status: Acute Code(s): D64.9 - ANEMIA, UNSPECIFIED SNOMED Code(s): 471028129 (2) Malignant melanoma of rectum Current Visit: Yes Status: Acute Code(s): C20 - MALIGNANT NEOPLASM OF RECTUM SNOMED Code(s): 701805601 (3) Lung nodules Current Visit: Yes Status: Acute Code(s): R91.8 - OTHER NONSPECIFIC ABNORMAL FINDING OF LUNG FIELD SNOMED Code(s): 906715354 Plan: Assessment and Recommendations: Newly Identified subcentimeter pulmonary nodules (numerous): - With known history of melanoma consideration of a metastatic process must be considered - Agree with outpatient PET scan for further evaluation as CT scan unable to determine etiology and size limits ability to undergo biopsy at this time - Ultimately a tissue biopsy will be needed, imaging of abdomen and pelvis is recommended for further staging and evaluation of other potential areas amicable to biopsy - Abdominal Ultrasound today Normocytic Anemia: Acute Chronic - Hemoglobin 6 today, Transfuse PRBC - DC - NSAIDS with known GI blood loss and pathologies - Supportive care with other measures preferred - Recheck Iron studies evidence of Iron deficiency component - Parental Iron ordered Melanoma of the Rectal Skin: - Diagnosed in 2019, surgical resection, limited disease no residual disease - Continues to follow at [facility] for surveillance and last CT 05/2020 RANDI Multiple liver Lesions: - With newly found pulmonary nodules and new hypoechoic liver lesions Right up to 2.5cm, Left approx 1.5 per ultrasound IR to obtain tissue biopsy of right liver lesion -plan Wednesday Physician Attest: I have completed the full history and physical and agree with above dictation, dictated as a ascribe.
--- NOTE | 2020-07-29 13:39 | PN ---
PROGRESS NOTE She is admitted for concern for metastatic cancer. Hemoglobin is low at 6 today. Transfusion support ordered. Iron levels decreased and ordered iron replacements. Blood pressure 89/50, O2 of 97, respiratory 16 to 18, pulse 96, temperature 97.2. CARDIOVASCULAR: S1, S2. LUNGS: Are decreased breath sounds. GI: Soft, nontender. HEMATOLOGY: Negative Homans. As mentioned, hemoglobin 6.01, RBC 2.22, hematocrit 20. ASSESSMENT: 1. Newly identified subcentimeter pulmonary nodule with melanoma metastatic process must be considered. outpatient PET scan, tissue biopsy of the liver hopefully will be done today. 2. Normocytic anemia, severe anemia today, transfuse. 3. Melanoma of the rectal . 4. Multiple liver lesions, tissue biopsy plan is for Wednesday. Prognosis extremely guarded. Transfuse blood today. Prognosis guarded. MMODL / IJN: [id number] /
--- NOTE | 2020-07-29 18:42 | CONS ---
CONSULTATION DATE OF DICTATION: 07/29/2020 REASON FOR CONSULTATION: Severe symptomatic anemia. HISTORY OF PRESENT ILLNESS: The patient is a 80-year-old pleasant white female with history of iron deficiency anemia for almost 7 years' duration, has had multiple EGDs and colonoscopies in the past, and workup has been negative. She was diagnosed with rectal melanoma in October of 2019, at which time she had a colonoscopy by Dr. Bergman and was noted to have some large internal hemorrhoids. Subsequently she underwent excision of the internal hemorrhoids by Dr. Myers. The pathology revealed malignant melanoma. She subsequent was seen at [facility] and she follows with Dr. Acuna with a conservative approach. She was admitted to the hospital because of pleuritic chest pain that started about 5 weeks ago. Pain is mostly in the lower sternal area, worse with movement. No abdominal pain. No nausea, no vomiting. No rectal bleeding, but she has been having dark-colored stool since she has been on iron supplements. At the time of admission to the hospital, hemoglobin was 6 g/dL, and she is currently scheduled to receive 2 units of PRBC transfusion. She also had ultrasound of the abdomen done 2 days ago that showed new lesions in the liver measuring 2.5 and 1.5 cm in size, and she is scheduled for a liver biopsy tomorrow. PAST MEDICAL HISTORY: Significant for hypertension, recurrent iron deficiency anemia, anxiety, depression, malignant melanoma diagnosed in October of 2019. MEDICATIONS: Medications at home include iron sulfate, Desyrel, oxycodone, Tenormin, K-Dur, Synthroid Motrin, Celexa and Xanax. ALLERGIES: SULFA, INFLUENZA VIRUS VACCINE, AUGMENTIN, CIPRO, METRONIDAZOLE AND QUINIDINE. SOCIAL HISTORY: No smoking. No alcohol use. FAMILY HISTORY: Unremarkable. REVIEW OF SYSTEMS: CARDIOPULMONARY: No chest pain or shortness of breath. GENITOURINARY: No dysuria or hematuria. MUSCULOSKELETAL: Severe pleuritic chest pain. SKIN: Unremarkable. NEUROLOGY: Unremarkable. PSYCHIATRIC: Unremarkable. CONSTITUTIONAL: Weight loss of 10 pounds. No fever, chills, night sweats. PAST SURGICAL HISTORY: Multiple EGDs, colonoscopies, history of tonsillectomy, adenoidectomy, cholecystectomy, hysterectomy, right total hip arthroplasty. FAMILY HISTORY: Father with CVA and daughter had coronary artery disease. PHYSICAL EXAMINATION: She appears comfortable. No apparent distress. Vital signs are stable. Blood pressure 89/50, pulse rate 96, temperature 97.2. HEENT examination unremarkable. Conjunctivae pale. Sclerae anicteric. Oral cavity no lesions. NECK: No JVD or lymph node enlargement. CHEST: Clear to auscultation. HEART: Regular rate and rhythm. ABDOMEN: Soft. It was non-tender, non-distended. Bowel sounds are positive. No organomegaly. EXTREMITIES: No pedal edema. NEUROLOGIC: Alert and oriented x3. No focal deficits. LABS: WBC 8.6, hemoglobin 6, platelets 367. BUN 38, creatinine 0.67. Iron saturation is 6%. Serum ferritin is 74. IMPRESSION: 1. Recurrent iron deficiency anemia. Clinically no evidence of active bleeding. Patient was investigated extensively with multiple EGDs and colonoscopies in the past. Last colonoscopy was done by Dr. Bergman in October of 2019 that showed large internal hemorrhoids that were excised by Dr. Myers, and biopsy revealed malignant melanoma. 2. Malignant melanoma diagnosed October of 2019, status post excision, currently being treated conservatively. 3. New liver lesions noted on ultrasound of the abdomen, for which she is scheduled for liver biopsy tomorrow. 4. Pulmonary nodules. Rule out metastatic process. RECOMMENDATIONS: 1. Agree with PRBC transfusion. 2. Agree with ultrasound-guided liver biopsy. 3. Monitor CBC closely. 4. No plans for any endoscopic intervention at the present time. Thank you for this consultation. MMODL / IJN: [id number] /
[2020-07-29] MEDS: traZODone HCL 100 MG TAB PO SCH (21:42)
[2020-07-29] MEDS: atenoloL 25 MG TAB PO SCH (21:42)
[2020-07-29] MEDS: ALPRAZolam 1 MG TAB PO PRN (21:46)
[2020-07-30] MEDS: HYDROmorphone 0.5 MG/0.5 ML SYRINGE IM PRN ×4 (04:44→21:32)
[2020-07-30] MEDS: LEVOTHYROXINE 50 MCG TAB PO SCH (05:37)
[2020-07-30] MEDS: SODIUM FERRIC GLUCONAT-SUCROSE 125 MG in SODIUM CHLORIDE 0.9% 100 ML IVPB SCH (08:27)
[2020-07-30] MEDS: POTASSIUM CHLORIDE ER 20 MEQ TAB.ER PO SCH ×2 (09:00→21:33)
[2020-07-30 09:02] LABS: ALT 13 U/L (4-34); AST 27 U/L (14-36); African American GFR (CKD) >90 (>60 ml/min/1.73 sqM); Albumin 2.7 g/dL (3.5-5.0); Alkaline Phosphatase 89 U/L (38-126); Anion Gap 4 mmol/L; Blood Urea Nitrogen 27 mg/dL (7-17); Calcium 8.9 mg/dL (8.4-10.2); Carbon Dioxide 21 mmol/L (22-30); Chloride 108 mmol/L (98-107); Glucose 77 mg/dL (74-99); Non-African American GFR(CKD) 83 (>60 ml/min/1.73 sqM); Potassium 4.7 mmol/L (3.5-5.1); Prothrombin Time 10.7 sec (9.0-12.0); Sodium 133 mmol/L (137-145); Total Bilirubin 0.4 mg/dL (0.2-1.3); Total Protein 4.9 g/dL (6.3-8.2)
[2020-07-30 09:04] LABS: Basophils % (A) 0 %; Eosinophils % (A) 0 %; HCT 23.1 % (34.0-46.0); HGB 7.1 gm/dL (11.4-16.0); Hypochromasia Marked; Lymphocytes # (A) 0.9 k/uL (1.0-4.8); Lymphocytes % (A) 9 %; MCH 28.6 pg (25.0-35.0); MCHC 30.8 g/dL (31.0-37.0); MCV 92.7 fL (80.0-100.0); Mean Platelet Volume 7.2; Monocytes # (A) 0.7 k/uL (0-1.0); Monocytes % (A) 7 %; Neutrophils # (A) 8.5 k/uL (1.3-7.7); Neutrophils % (A) 83 %; Platelet Count 351 k/uL (150-450); Poikilocytosis Moderate; RDW 15.6 % (11.5-15.5); WBC 10.2 k/uL (3.8-10.6)
[2020-07-30 13:14] LABS: Anisocytosis (M) Present; Hypersegmented Neutrophils Present; Mixed Population RBC Present; Polychromasia Present
--- NOTE | 2020-07-30 13:23 | PN ---
PROGRESS NOTE Janey Trejo is supposed to get a liver biopsy today of possible metastatic lesions in her liver. She had a blood transfusion last night. Her hemoglobin only went up to 7.1. We are probably going to have to transfuse to give her another unit of blood. She has no signs of active bleeding. Hopefully, she will be able to have the liver biopsy today. Midline access has been given. Await for radiology to do the liver biopsy. Possibly give her another unit of blood. Depending on Hematology recommendations. Prognosis extremely guarded. MMODL / IJN: [id number] /
[2020-07-30] MEDS ORDERED: HYDROmorphone 0.5 MG/0.5 ML SYRINGE IVP STA (15:42)
[2020-07-30] MEDS: predniSONE 20 MG TAB PO SCH (16:12)
[2020-07-30] MEDS: CITALOPRAM HYDROBROMIDE 20 MG TAB PO SCH (16:12)
--- NOTE | 2020-07-30 16:12 | US ---
EXAMINATION TYPE: US biopsy liver DATE OF EXAM: 07/30/2020 HISTORY: Liver masses. FINDINGS: Maximal barrier technique was utilized. Hand hygiene achieved with soap and water and alco hol-based hand rub. The skin overlying a suitable path to the patient's mass in the left lobe of live r was localized with ultrasound and the overlying skin prepped and draped. Ultrasound was utilized w ith sterile technique. Lidocaine was used for local anesthesia. A skin melisa was made with a scalpel . An 18-gauge needle was advanced under direct ultrasound guidance and core specimen obtained of the mass. Single pass was made. Specimen submitted in formalin to Pathology. Following the procedure, hemostasis achieved and the patient is discharged in stable condition without complication. IMPRESSION:STATUS POST ULTRASOUND GUIDED CORE BIOPSY OF left lobe liver MASS, PATHOLOGY IS PENDING . THIS PROCEDURE IS PERFORMED BY THE UNDERSIGNED.
--- NOTE | 2020-07-30 16:18 | P.PN ---
Subjective Progress Note Date: 07/30/20 Principal diagnosis: Anemia, new liver lesions The patient was seen and examined lying in bed. She denies any abdominal pain, nausea, or vomiting. She has left chest pain with moving. She denies any loose bowels, [place], or rectal bleeding. Patient is scheduled for liver biopsy today. She is status post 1 unit of PRBC transfusion. Objective - Vital Signs Vital signs: Vital Signs Temp 96.1 F L 07/30/20 07:45 Pulse 62 07/30/20 07:49 Resp 16 07/30/20 07:49 BP 97/51 07/30/20 07:45 Pulse Ox 98 07/30/20 07:45 Intake & Output 07/29/20 07/30/20 07/30/20 18:59 06:59 18:59 Intake Total 0 310 Output Total 750 Balance 0 -440 Intake: Blood Product 0 310 Rc As-1 Unit 0 310 [id number] Output: Urine 750 Other: Voiding Method Bedside Commode Bedside Commode Bedside Commode # Voids 2 1 - Exam General appearance: The patient is alert, oriented, appears in no acute di stress. HET: Head is normocephalic and atraumatic. Conjunctiva pink. Sclera anicteric. Neck: Supple without lymphadenopathy. Abdomen: Soft, nontender, nondistended with bowel sounds. No guarding or rigidity. Extremities: Normal skin color and turgor. No pedal edema Skin: No rashes, no jaundice Neurological: No focal deficits. Alert and oriented 3. - Labs CBC & Chem 7: 07/30/20 08:14 07/30/20 08:14 Labs: Abnormal Lab Results - Last 24 Hours (Table) 07/29/20 07/30/20 07/30/20 Range/Units 06:03 08:14 08:14 RBC 2.50 L (3.80-5.40) m/uL Hgb 7.1 L (11.4-16.0) gm/dL Hct 23.1 L (34.0-46.0) % MCHC 30.8 L (31.0-37.0) g/dL RDW 15.6 H (11.5-15.5) % Sodium 133 L (137-145) mmol/L Chloride 108 H (98-107) mmol/L Carbon Dioxide 21 L (22-30) mmol/L BUN 27 H (7-17) mg/dL Total Protein 4.9 L (6.3-8.2) g/dL Albumin 2.7 L (3.5-5.0) g/dL Crossmatch See Detail Assessment and Plan (1) Iron deficiency anemia Narrative/Plan: A 80-year-old female with recurrent iron deficiency anemia. Clinically no evidence of active bleeding. Patient was investigated extensively with multiple EGDs and colonoscopies in the past. Has colonoscopy was done by Dr. Grey in October 2019 that showed large internal hemorrhoids that were excised by Dr. Anderson and biopsies revealed malignant melanoma. Current Visit: No Status: Chronic Priority: Medium Code(s): D50.9 - IRON DEFICIENCY ANEMIA, UNSPECIFIED SNOMED Code(s): 60322590 (2) Liver lesion Narrative/Plan: Liver lesions noted on ultrasound of the abdomen for which patient is scheduled for liver biopsy. Oncology is following closely Current Visit: Yes Status: Acute Code(s): K76.9 - LIVER DISEASE, UNSPECIFIED SNOMED Code(s): 942696302 (3) Malignant melanoma Narrative/Plan: Malignant melanoma diagnosed in October 2019 status post excision currently being treated conservatively follows with specialists at [facility]. Current Visit: Yes Status: Acute Code(s): C43.9 - MALIGNANT MELANOMA OF SKIN, UNSPECIFIED SNOMED Code(s): 088364552 (4) Pulmonary nodules Narrative/Plan: Multiple pulmonary nodules as seen on CT, rule out metastatic process. Patient again is being followed closely by oncology. Current Visit: Yes Status: Acute Code(s): R91.8 - OTHER NONSPECIFIC ABNORMAL FINDING OF LUNG FIELD SNOMED Code(s): 891748198 Plan: 1. Patient is status post 1 unit of PRBC transfusion 2. Agree with liver biopsy 3. Symptomatic and supportive care 4. Continue to follow with recommendations from oncology 5. No plans for any endoscopic intervention at the present time 6. Monitor CBC closely Thank you for this consultation, we will sign off at this time Dr. Bergman I agree with the dictator's note, documented as a scribe by Flakita Corado.
[2020-07-30] MEDS: oxyCODONE-APAP 10-325MG 1 EACH TAB PO PRN (18:10)
--- NOTE | 2020-07-30 18:43 | P.PN ---
Subjective Progress Note Date: 07/30/20 Principal diagnosis: Concern for metastatic Cancer Plan is for biopsy of liver today, transfused PRBC 07/29/20. Objective - Vital Signs Vital signs: Vital Signs Temp 98.7 F 07/30/20 14:46 Pulse 66 07/30/20 17:45 Resp 16 07/30/20 17:45 BP 99/52 07/30/20 17:45 Pulse Ox 98 07/30/20 17:45 Intake & Output 07/29/20 07/30/20 07/30/20 18:59 06:59 18:59 Intake Total 0 310 0 Output Total 750 700 Balance 0 -440 -700 Intake: Oral 0 Blood Product 0 310 Rc As-1 Unit 0 310 [id number] Output: Urine 750 700 Other: Voiding Method Bedside Commode Bedside Commode Bedside Commode # Voids 2 1 - Exam - Constitutional General appearance: cooperative, no acute distress - EENT Eyes: EOMI, PERRLA ENT: hard of hearing, NA/AT, normal oropharynx - Neck Neck: normal ROM - Respiratory Respiratory: left: rhonchi, bilateral: diminished (no increased effort) - Cardiovascular Rhythm: irregularly irregular - Gastrointestinal General gastrointestinal: soft, tenderness - Integumentary Integumentary: pale - Neurologic Neurologic: CNII-XII intact - Musculoskeletal Musculoskeletal: generalized weakness - Psychiatric Psychiatric: A&O x's 3, appropriate affect, intact judgment & insight - Labs CBC & Chem 7: 07/31/20 07:28 07/31/20 07:28 Labs: Abnormal Lab Results - Last 24 Hours (Table) 07/29/20 07/30/20 07/30/20 Range/Units 06:03 08:14 08:14 RBC 2.50 L (3.80-5.40) m/uL Hgb 7.1 L (11.4-16.0) gm/dL Hct 23.1 L (34.0-46.0) % MCHC 30.8 L (31.0-37.0) g/dL RDW 15.6 H (11.5-15.5) % Neutrophils # 8.5 H (1.3-7.7) k/uL Lymphocytes # 0.9 L (1.0-4.8) k/uL Sodium 133 L (137-145) mmol/L Chloride 108 H (98-107) mmol/L Carbon Dioxide 21 L (22-30) mmol/L BUN 27 H (7-17) mg/dL Total Protein 4.9 L (6.3-8.2) g/dL Albumin 2.7 L (3.5-5.0) g/dL Crossmatch See Detail Assessment and Plan (1) Normocytic anemia Current Visit: Yes Status: Acute Code(s): D64.9 - ANEMIA, UNSPECIFIED SNOMED Code(s): 159296893 (2) Malignant melanoma of rectum Current Visit: Yes Status: Acute Code(s): C20 - MALIGNANT NEOPLASM OF RECTUM SNOMED Code(s): 914003337 (3) Lung nodules Current Visit: Yes Status: Acute Code(s): R91.8 - OTHER NONSPECIFIC ABNORMAL FINDING OF LUNG FIELD SNOMED Code(s): 550753768 Plan: Assessment and Recommendations: Newly Identified subcentimeter pulmonary nodules (numerous): - With known history of melanoma consideration of a metastatic process must be considered - Agree with outpatient PET scan for further evaluation as CT scan unable to determine etiology and size limits ability to undergo biopsy at this time - Ultimately a tissue biopsy will be needed, imaging of abdomen and pelvis is recommended for further staging and evaluation of other potential areas amicable to biopsy - Abdominal Ultrasound today Normocytic Anemia: Acute Chronic - Hemoglobin 7.1 today, Transfuse PRBC - DC - NSAIDS with known GI blood loss and pathologies - Supportive care with other measures preferred - Recheck Iron studies evidence of Iron deficiency component - Parental Iron ordered and day 1 of 3 given. Melanoma of the Rectal Skin: - Diagnosed in 2019, surgical resection, limited disease no residual disease - Continues to follow at [facility] for surveillance and last CT 05/2020 RANDI Multiple liver Lesions: - With newly found pulmonary nodules and new hypoechoic liver lesions Right up to 2.5cm, Left approx 1.5 per ultrasound IR to obtain tissue biopsy of right liver lesion - this afternoon Plan: - Await pathology from Liver - MOnitor Hemoglobin closely post biopsy - Patient planning to go out of state, if she happens to remain in town will follow-up in office otherwise will pursue treatment options at her designation, if assistance is needed in coordinating oncology team we are happy to assist with transfer of records. She was made aware of this today. Will adjust pain medication to long acting and breakthrough in anticipation of discharge
[2020-07-30] MEDS: ALPRAZolam 1 MG TAB PO PRN (21:33)
[2020-07-30] MEDS: atenoloL 25 MG TAB PO SCH (21:33)
[2020-07-30] MEDS: traZODone HCL 100 MG TAB PO SCH (21:33)
[2020-07-30 22:39] LABS: LD Isoenzymes 1 17 % (19-38); LD Isoenzymes 2 33 % (30-43); LD Isoenzymes 3 27 % (16-26); LD Isoenzymes 4 13 % (3-12); LD Isoenzymes 5 10 % (3-14); Lactacte Dehydrogenase(LD) ISO 243 U/L (120-250)
[2020-07-31] MEDS: oxyCODONE-APAP 10-325MG 1 EACH TAB PO PRN ×3 (04:18→20:25)
[2020-07-31 08:13] LABS: Anisocytosis Slight; Basophils % (A) 0 %; Eosinophils % (A) 0 %; Hypochromasia Marked; Lymphocytes # (A) 0.9 k/uL (1.0-4.8); Lymphocytes % (A) 8 %; MCH 27.5 pg (25.0-35.0); MCHC 29.6 g/dL (31.0-37.0); MCV 92.8 fL (80.0-100.0); Mean Platelet Volume 7.1; Monocytes # (A) 0.6 k/uL (0-1.0); Monocytes % (A) 5 %; Neutrophils # (A) 9.4 k/uL (1.3-7.7); Neutrophils % (A) 86 %; Platelet Count 354 k/uL (150-450); Poikilocytosis Moderate; RBC 2.91 m/uL (3.80-5.40); RDW 16.1 % (11.5-15.5)
[2020-07-31 08:24] LABS: Albumin 2.6 g/dL (3.5-5.0); Calcium 8.7 mg/dL (8.4-10.2); Potassium 4.7 mmol/L (3.5-5.1); Total Bilirubin 0.4 mg/dL (0.2-1.3); Total Protein 4.8 g/dL (6.3-8.2)
[2020-07-31] MEDS: POTASSIUM CHLORIDE ER 20 MEQ TAB.ER PO SCH ×2 (09:10→20:25)
[2020-07-31] MEDS: CITALOPRAM HYDROBROMIDE 20 MG TAB PO SCH (09:10)
[2020-07-31] MEDS: predniSONE 20 MG TAB PO SCH (09:11)
[2020-07-31] MEDS: LEVOTHYROXINE 50 MCG TAB PO SCH (09:11)
[2020-07-31] MEDS: SODIUM FERRIC GLUCONAT-SUCROSE 125 MG in SODIUM CHLORIDE 0.9% 100 ML IVPB SCH (09:37)
--- NOTE | 2020-07-31 19:17 | P.PN ---
Subjective Progress Note Date: 07/31/20 Principal diagnosis: Concern for metastatic Cancer Hemoglobin 8 today, Added Fentanyl 25 mcg for long acting coverage in anticipation of discharge, bowel regimen also added. She is in good spirits today during follow-up. They are planning for [place] on August 13. Objective - Vital Signs Vital signs: Vital Signs Temp 98 F 07/31/20 09:22 Pulse 56 L 07/31/20 09:22 Resp 18 07/31/20 09:22 BP 110/56 07/31/20 09:22 Pulse Ox 95 07/31/20 09:22 Intake & Output 07/30/20 07/31/20 07/31/20 18:59 06:59 18:59 Intake Total 0 770 Output Total 700 Balance -700 770 Intake: Oral 0 150 Blood Product 620 Rc As-1 Unit 310 [id number] Output: Urine 700 Other: Voiding Method Bedside Commode # Voids 1 - Exam - Constitutional General appearance: cooperative, no acute distress - EENT Eyes: EOMI, PERRLA ENT: hard of hearing, NA/AT, normal oropharynx - Neck Neck: normal ROM - Respiratory Respiratory: left: rhonchi, bilateral: diminished (no increased effort) - Cardiovascular Rhythm: irregularly irregular - Gastrointestinal General gastrointestinal: soft, tenderness - Integumentary Integumentary: pale - Neurologic Neurologic: CNII-XII intact - Musculoskeletal Musculoskeletal: generalized weakness - Psychiatric Psychiatric: A&O x's 3, appropriate affect, intact judgment & insight - Labs CBC & Chem 7: 07/31/20 07:28 07/31/20 07:28 Labs: Abnormal Lab Results - Last 24 Hours (Table) 07/26/20 07/29/20 07/30/20 Range/Units 10:46 06:03 08:14 WBC (3.8-10.6) k/uL RBC (3.80-5.40) m/uL Hgb (11.4-16.0) gm/dL Hct (34.0-46.0) % MCHC (31.0-37.0) g/dL RDW (11.5-15.5) % Neutrophils # 8.5 H (1.3-7.7) k/uL Lymphocytes # 0.9 L (1.0-4.8) k/uL Sodium (137-145) mmol/L BUN (7-17) mg/dL LD 1 17 L (19-38) % LD 3 27 H (16-26) % LD 4 13 H (3-12) % Total Protein (6.3-8.2) g/dL Albumin (3.5-5.0) g/dL Crossmatch See Detail 07/31/20 07/31/20 Range/Units 07:28 07:28 WBC 11.0 H (3.8-10.6) k/uL RBC 2.91 L (3.80-5.40) m/uL Hgb 8.0 L (11.4-16.0) gm/dL Hct 27.0 L (34.0-46.0) % MCHC 29.6 L (31.0-37.0) g/dL RDW 16.1 H (11.5-15.5) % Neutrophils # 9.4 H (1.3-7.7) k/uL Lymphocytes # 0.9 L (1.0-4.8) k/uL Sodium 134 L (137-145) mmol/L BUN 19 H (7-17) mg/dL LD 1 (19-38) % LD 3 (16-26) % LD 4 (3-12) % Total Protein 4.8 L (6.3-8.2) g/dL Albumin 2.6 L (3.5-5.0) g/dL Crossmatch Assessment and Plan (1) Normocytic anemia Current Visit: Yes Status: Acute Code(s): D64.9 - ANEMIA, UNSPECIFIED SNOMED Code(s): 341138293 (2) Malignant melanoma of rectum Current Visit: Yes Status: Acute Code(s): C20 - MALIGNANT NEOPLASM OF RECTUM SNOMED Code(s): 979672454 (3) Lung nodules Current Visit: Yes Status: Acute Code(s): R91.8 - OTHER NONSPECIFIC ABNORMAL FINDING OF LUNG FIELD SNOMED Code(s): 633129756 Plan: Assessment and Recommendations: Newly Identified subcentimeter pulmonary nodules (numerous): - With known history of melanoma consideration of a metastatic process must be considered - Status Post BIopsy of Liver 07/30, await path Normocytic Anemia: Acute Chronic - Hemoglobin improved to 8 today - DC - NSAIDS with known GI blood loss and pathologies - Parental Iron ordered and day 2 of 3 given. Melanoma of the Rectal Skin: - Diagnosed in 2019, surgical resection, limited disease no residual disease - Continues to follow at [facility] for surveillance and last CT 05/2020 RANDI Multiple liver Lesions: - With newly found pulmonary nodules and new hypoechoic liver lesions Right up to 2.5cm, Left approx 1.5 per ultrasound - Status post Liver biopsy 07/30, await path Neoplastic related pain: - Add a long acting and breakthrough in anticipation of discharge. Senna-s for narcotic induced constipation Plan: - Await Pathology - Long acting and breakthrough (Fentanyl and Oxycodone) - 3/3 iron parental - Follow-up with oncology after discharge
[2020-07-31] MEDS: SENNOSIDES-DOCUSATE SODIUM 1 EACH TAB PO SCH (20:25)
[2020-07-31] MEDS: traZODone HCL 100 MG TAB PO SCH (20:25)
[2020-07-31] MEDS: ALPRAZolam 1 MG TAB PO PRN (21:25)
[2020-07-31] MEDS: atenoloL 25 MG TAB PO SCH (21:25)
[2020-08-01] MEDS: LEVOTHYROXINE 50 MCG TAB PO SCH (06:08)
[2020-08-01] MEDS: CITALOPRAM HYDROBROMIDE 20 MG TAB PO SCH (09:29)
[2020-08-01] MEDS: SENNOSIDES-DOCUSATE SODIUM 1 EACH TAB PO SCH ×2 (09:30→21:06)
[2020-08-01] MEDS: POTASSIUM CHLORIDE ER 20 MEQ TAB.ER PO SCH ×2 (09:30→21:06)
[2020-08-01] MEDS: oxyCODONE-APAP 10-325MG 1 EACH TAB PO PRN ×3 (09:33→21:06)
[2020-08-01] MEDS: predniSONE 20 MG TAB PO SCH (09:33)
[2020-08-01] MEDS: SODIUM FERRIC GLUCONAT-SUCROSE 125 MG in SODIUM CHLORIDE 0.9% 100 ML IVPB SCH (11:46)
--- NOTE | 2020-08-01 12:04 | PN ---
PROGRESS NOTE DATE OF SERVICE: 07/31/2020 A 80-year-old white female, status post liver biopsy for probable metastatic cancer. She is also status post 2 units of blood for severe anemia. She has history of longstanding anemia. She most likely has metastatic cancer to the liver. Waiting for biopsy results. Pain was due to severe pain. Pain Clinic ordered Duragesic patch 25, which was started. She says it is helping her pain. CARDIOVASCULAR: S1, S2. LUNGS: Clear. GI: Some tenderness to palpation across the epigastric. HEMATOLOGY: Negative Homans. ASSESSMENT: 1. Severe anemia. 2. Metastatic cancer to the liver of unclear etiology, probably history of malignant melanoma of the rectum, which could be the source. Await for biopsy report. The patient will be possibly discharged home soon if hemoglobin stabilizes and follow up as an outpatient for the biopsy. MMODL / IJN: [id number] /
[2020-08-01] MEDS ORDERED: TEMAZEPAM 15 MG CAP PO PRN (13:08)
[2020-08-01 14:30] VITALS: BMI 27.2
--- NOTE | 2020-08-01 14:38 | PN ---
PROGRESS NOTE DATE OF SERVICE: 08/01/2020 I am covering for Dr. Stewart. HISTORY OF PRESENT ILLNESS: This is a 80-year-old woman who was admitted with complaints of pleuritic chest pain, also found to have multiple pulmonary nodules. The patient underwent ultrasound guided liver biopsy of the left lower lobe mass. The biopsy reports are pending at this time. Patient is complaining of some chest pain and upper abdominal pain at this time. There is no history of fever, rigors or chills. PAST MEDICAL HISTORY: Reviewed. REVIEW OF SYSTEMS: CARDIOVASCULAR: No angina. RESPIRATORY: As mentioned earlier. GI: As mentioned earlier. : No dysuria. NERVOUS SYSTEM: No numbness or weakness. CURRENT MEDICATIONS: Reviewed include Xanax, Tenormin, Celexa, Duragesic patch, Synthroid, Percocet, K-Dur, prednisone, Senokot, Desyrel. Doses reviewed. PHYSICAL EXAMINATION: GENERAL: Patient is alert and oriented times three. VITAL SIGNS: Pulse 51, blood pressure 91/50, respirations 13, temperature 97.5, pulse ox 94% on room air HEENT: Conjunctivae normal. Oral mucosa moist. NECK: No jugular venous distention. No carotid bruits. No lymph node enlargement. RESPIRATORY: Breath sounds diminished at the bases. A few scattered rhonchi. HEART: S1 and S2, muffled. ABDOMEN: Soft, distended. Liver palpable. EXTREMITIES: No edema, no swelling. NERVOUS: No focal deficits. LABS: WBC 11, hemoglobin is 8, sodium 134. ASSESSMENT: 1. Multiple pulmonary lung nodules and possible metastatic malignancy. 2. Status post liver biopsy. 3. Severe anemia. 4. History of malignant melanoma of the rectum. 5. Anemia, multifactorial, status post blood transfusion. 6. Increased WBC. 7. Hyponatremia. 8. History atrial fibrillation and flutter. 9. Gastroesophageal reflux disease. 10.Hyperlipidemia. 11.History of mitral valve prolapse. 12.History rheumatoid arthritis. 13.History of hypothyroidism. 14.History of Clostridium difficile colitis. 15.History of adenoidectomy. 16.History of cholecystectomy. 17.History of anxiety, depression. RECOMMENDATIONS AND DISCUSSION: In this 80-year-old woman who presented with multiple complex medical issues, at this time I recommend to continue current medications, management and symptomatic treatment. Otherwise, I would recommend repeat labs. Guarded prognosis because of multiple complex medical issues. Further recommendations to follow. MMODL / IJN: [id number] /
[2020-08-01] MEDS: PANTOPRAZOLE 40 MG TABLET PO SCH (15:38)
--- NOTE | 2020-08-01 20:27 | P.PN ---
Subjective Progress Note Date: 08/01/20 Principal diagnosis: Concern for metastatic Cancer NO major changes overnight, Hemoglobin 8 today Objective - Vital Signs Vital signs: Vital Signs Temp 97.5 F L 08/01/20 12:49 Pulse 51 L 08/01/20 12:49 Resp 13 08/01/20 12:49 BP 99/59 08/01/20 12:49 Pulse Ox 94 L 08/01/20 12:49 Intake & Output 08/01/20 08/01/20 08/02/20 06:59 18:59 06:59 Intake Total 590 Output Total 175 Balance 590 -175 Weight 76.657 kg Intake: Oral 590 Output: Urine 175 Other: Voiding Method Bedside Commode # Voids 3 1 # Bowel Movements 1 - Exam - Constitutional General appearance: cooperative, no acute distress - EENT Eyes: EOMI, PERRLA ENT: hard of hearing, NA/AT, normal oropharynx - Neck Neck: normal ROM - Respiratory Respiratory: left: rhonchi, bilateral: diminished (no increased effort) - Cardiovascular Rhythm: irregularly irregular - Gastrointestinal General gastrointestinal: soft, tenderness - Integumentary Integumentary: pale - Neurologic Neurologic: CNII-XII intact - Musculoskeletal Musculoskeletal: generalized weakness - Psychiatric Psychiatric: A&O x's 3, appropriate affect, intact judgment & insight - Labs CBC & Chem 7: 07/31/20 07:28 07/31/20 07:28 Assessment and Plan (1) Normocytic anemia Current Visit: Yes Status: Acute Code(s): D64.9 - ANEMIA, UNSPECIFIED SNOMED Code(s): 155136331 (2) Malignant melanoma of rectum Current Visit: Yes Status: Acute Code(s): C20 - MALIGNANT NEOPLASM OF RECTUM SNOMED Code(s): 095422095 (3) Lung nodules Current Visit: Yes Status: Acute Code(s): R91.8 - OTHER NONSPECIFIC ABNORMAL FINDING OF LUNG FIELD SNOMED Code(s): 208265763 Plan: Assessment and Recommendations: Newly Identified subcentimeter pulmonary nodules (numerous): - With known history of melanoma consideration of a metastatic process must be considered - Status Post BIopsy of Liver 07/30, await path Normocytic Anemia: Acute Chronic - Hemoglobin improved to 8 today - DC - NSAIDS with known GI blood loss and pathologies - Parental Iron ordered and day 2 of 3 given. Melanoma of the Rectal Skin: - Diagnosed in 2019, surgical resection, limited disease no residual disease - Continues to follow at [facility] for surveillance and last CT 05/2020 RANDI Multiple liver Lesions: - With newly found pulmonary nodules and new hypoechoic liver lesions Right up to 2.5cm, Left approx 1.5 per ultrasound - Status post Liver biopsy 07/30, await path Neoplastic related pain: - Add a long acting and breakthrough in anticipation of discharge. Senna-s for narcotic induced constipation Plan: - Await Pathology - Long acting and breakthrough (Fentanyl and Oxycodone) - 06/12 iron parental - Follow-up with oncology after discharge in [place]. Will provide prescriptions for her pain medications for 30 days to allow her time to establish new physician in [place] early in August Physician Attest: I have completed the full history and physical and agree with above dictation, dictated as a ascribe.
[2020-08-01] MEDS: atenoloL 25 MG TAB PO SCH (21:05)
[2020-08-01] MEDS: ALPRAZolam 1 MG TAB PO PRN (21:05)
[2020-08-01] MEDS: traZODone HCL 100 MG TAB PO SCH (22:43)
[2020-08-02] MEDS: oxyCODONE-APAP 10-325MG 1 EACH TAB PO PRN ×2 (04:46→10:47)
[2020-08-02] MEDS: LEVOTHYROXINE 50 MCG TAB PO SCH (04:47)
[2020-08-02 05:40] LABS: Anisocytosis Slight; HCT 29.4 % (34.0-46.0); HGB 8.8 gm/dL (11.4-16.0); Hypochromasia Marked; MCH 27.7 pg (25.0-35.0); MCV 92.4 fL (80.0-100.0); Mean Platelet Volume 7.6; Platelet Count 305 k/uL (150-450); Poikilocytosis Moderate; RBC 3.18 m/uL (3.80-5.40); RDW 18.6 % (11.5-15.5); WBC 14.6 k/uL (3.8-10.6)
[2020-08-02 06:19] LABS: Lymphocytes # (M) 0.88 k/uL (1.0-4.8); Monocytes # (M) 0.73 k/uL (0-1.0); Neutrophils # (M) 13.14 k/uL (1.3-7.7); Neutrophils % (M) 90 %; Nucleated Red Blood Cells 0 /100 WBC (0-0); Total Cells Counted 200
[2020-08-02 06:23] LABS: Polychromasia Present
[2020-08-02 06:24] LABS: Mixed Population RBC Present
[2020-08-02 08:05] VITALS: PULSE 56
[2020-08-02] MEDS: CITALOPRAM HYDROBROMIDE 20 MG TAB PO SCH (08:32)
[2020-08-02] MEDS: SENNOSIDES-DOCUSATE SODIUM 1 EACH TAB PO SCH (08:33)
[2020-08-02] MEDS: POTASSIUM CHLORIDE ER 20 MEQ TAB.ER PO SCH (08:33)
[2020-08-02] MEDS: PANTOPRAZOLE 40 MG TABLET PO SCH (08:33)
[2020-08-02] MEDS: predniSONE 20 MG TAB PO SCH (08:33)
--- NOTE | 2020-08-02 11:50 | P.PN ---
Subjective Progress Note Date: 08/02/20 Principal diagnosis: Concern for metastatic Cancer Fentanyl and percocet and bowel regimen scripts given to patient, she has signed "lets get talking" and narcotic agreement. Objective - Vital Signs Vital signs: Vital Signs Temp 97.4 F L 08/02/20 08:02 Pulse 56 L 08/02/20 08:02 Resp 16 08/02/20 08:02 BP 123/74 08/02/20 08:02 Pulse Ox 97 08/02/20 08:02 Intake & Output 08/01/20 08/02/20 08/02/20 18:59 06:59 18:59 Intake Total 290 Output Total 175 Balance -175 290 Weight 76.657 kg Intake: Oral 290 Output: Urine 175 Other: Voiding Method Bedside Commode # Voids 1 0 # Bowel Movements 1 - Exam - Constitutional General appearance: cooperative, no acute distress - EENT Eyes: EOMI, PERRLA ENT: hard of hearing, NA/AT, normal oropharynx - Neck Neck: normal ROM - Respiratory Respiratory: left: rhonchi, bilateral: diminished (no increased effort) - Cardiovascular Rhythm: irregularly irregular - Gastrointestinal General gastrointestinal: soft, tenderness - Integumentary Integumentary: pale - Neurologic Neurologic: CNII-XII intact - Musculoskeletal Musculoskeletal: generalized weakness - Psychiatric Psychiatric: A&O x's 3, appropriate affect, intact judgment & insight - Labs CBC & Chem 7: 08/02/20 04:49 07/31/20 07:28 Labs: Abnormal Lab Results - Last 24 Hours (Table) 08/02/20 Range/Units 04:49 WBC 14.6 H (3.8-10.6) k/uL RBC 3.18 L (3.80-5.40) m/uL Hgb 8.8 L (11.4-16.0) gm/dL Hct 29.4 L (34.0-46.0) % MCHC 30.0 L (31.0-37.0) g/dL RDW 18.6 H (11.5-15.5) % Neutrophils # (Manual) 13.14 H (1.3-7.7) k/uL Lymphocytes # (Manual) 0.88 L (1.0-4.8) k/uL Assessment and Plan (1) Normocytic anemia Status: Acute Code(s): D64.9 - ANEMIA, UNSPECIFIED SNOMED Code(s): 176224748 (2) Malignant melanoma of rectum Status: Acute Code(s): C20 - MALIGNANT NEOPLASM OF RECTUM SNOMED Code(s): 035986821 (3) Lung nodules Status: Acute Code(s): R91.8 - OTHER NONSPECIFIC ABNORMAL FINDING OF LUNG FIELD SNOMED Code(s): 806482370 Plan: Assessment and Recommendations: Newly Identified subcentimeter pulmonary nodules (numerous): - With known history of melanoma consideration of a metastatic process must be considered - Status Post BIopsy of Liver 07/30, await path Normocytic Anemia: Acute Chronic - Hemoglobin improved to 8 today - DC - NSAIDS with known GI blood loss and pathologies - Parental Iron ordered and day 2 of 3 given. Melanoma of the Rectal Skin: - Diagnosed in 2019, surgical resection, limited disease no residual disease - Continues to follow at [facility] for surveillance and last CT 05/2020 RANDI Multiple liver Lesions: - With newly found pulmonary nodules and new hypoechoic liver lesions Right up to 2.5cm, Left approx 1.5 per ultrasound - Status post Liver biopsy 07/30, await path Neoplastic related pain: - Add a long acting and breakthrough in anticipation of discharge. Senna-s for narcotic induced constipation Plan: - Await Pathology - Long acting and breakthrough (Fentanyl and Oxycodone) - 3/3 iron parental - Follow-up with oncology after discharge in [place]. Will provide prescriptions for her pain medications for 30 days to allow her time to establish new physician in [place] early in August Physician Attest: I have completed the full history and physical and agree with above dictation, dictated as a ascribe.
[2020-08-02 12:53] VITALS: BP 110/68; RESP 14; TEMP 97.8
--- NOTE | 2020-08-02 16:45 | P.DS ---
Providers Date of admission: 07/27/20 22:39 Expected date of discharge: 08/02/20 Attending physician: Angel Stewart Consults: 07/25/20 18:19 Consult Physician Urgent Consulting Provider: Mariela Shelton Consult Reason/Comments: Lung nodules Do you want consulting provider notified?: Yes Primary care physician: Franklyn Josiah B. Thomas Hospital Course: Final diagnosis Multiple pulmonary lung nodules and possible metastatic malignancy Status post liver biopsy Severe anemia History of malignant melanoma of the rectum anemia, multifactorial, status post blood transfusions Increased white blood count Hyponatremia History of atrial fibrillation and flutter Gastroesophageal reflux disease Hyperlipidemia history of mitral valve prolapse history of rheumatoid arthritis history of hypothyroidism history of clostridium difficile colitis History of adenoidectomy history of cholecystectomy history of anxiety, depression Discharge disposition Patient is being discharged in a stable condition with guarded prognosis to home. Patient will continue with home care as needed. Patient will follow-up with Dr. Hammonds in the outpatient setting upon discharge. Patient will also follow-up with oncology in the outpatient setting as discussed in [place] as she is moving there next week. Prescription provided for repeat labs to monitor hemoglobin in the outpatient setting. Total time taken is greater than 35 minutes. Hospital course Patient is a 80-year-old female who was recently admitted with complaints of pleuritic chest pain also found to have multiple pulmonary nodules and was being closely monitored. Oncology following and patient underwent a liver biopsy and awaiting pathology. Patient will be following with oncology in [place] she is moving there next week. Patient's hemoglobin was low and received 2 units of PRBCs and current hemoglobin today is 8.8. Prescription from provided for repeat labs to monitor hemoglobin in the outpatient setting. Pain management per oncology. Currently no reports of chest pain, shortness of breath, or palpitations. Patient is afebrile. No reports of nausea or vomiting and patient is tolerating diet. Patient will be discharged home today. Guarded prognosis. On exam vital signs are stable. Cardio S1, S2 are muffled. Respiratory system shows diminished breath sounds at the bases with no wheezing or rhonchi noted. Abdomen is soft and nontender. Nervous system shows no focal deficits. Please refer to medication reconciliation sheet for a list of medications. Patient Condition at Discharge: Stable Plan - Discharge Summary Discharge Rx Participant: No New Discharge Prescriptions: New predniSONE 10 mg PO DIRECTED #30 tab ALPRAZolam [Xanax] 2 mg PO Q8H PRN #12 tab PRN Reason: Anxiety Pantoprazole [Protonix] 40 mg PO AC-BRKFST 30 Days #30 tablet.[address] Wallace-Docusate Sodium [Senokot-S] 1 each PO BID 30 Days #60 tab Continue oxyCODONE-APAP 10-325MG [Percocet 10-325 mg] 1 tab PO BID Citalopram Hydrobromide [CeleXA] 40 mg PO DAILY 30 Days #30 tab atenoloL [Tenormin] 25 mg PO HS 30 Days #30 tab traZODone HCL [Desyrel] 200 mg PO HS 30 Days #60 tab Ferrous Sulfate [Iron] 1 tab PO BID 30 Days #60 tab Potassium Chloride ER [K-Dur 20] 20 meq PO BID 30 Days #60 tab Levothyroxine Sodium [Synthroid] 50 mcg PO DAILY 30 Days #30 tab Discontinued ALPRAZolam [Xanax] 2 mg PO Q8H PRN PRN Reason: Anxiety Ibuprofen [Motrin] 600 mg PO Q8HR PRN #12 tab PRN Reason: Pain Discharge Medication List oxyCODONE-APAP 10-325MG [Percocet 10-325 mg] 1 tab PO BID 06/29/19 [History] ALPRAZolam [Xanax] 2 mg PO Q8H PRN #12 tab 08/02/20 [Rx] Citalopram Hydrobromide [CeleXA] 40 mg PO DAILY 30 Days #30 tab 08/02/20 [Rx] Ferrous Sulfate [Iron] 1 tab PO BID 30 Days #60 tab 08/02/20 [Rx] Levothyroxine Sodium [Synthroid] 50 mcg PO DAILY 30 Days #30 tab 08/02/20 [Rx] Pantoprazole [Protonix] 40 mg PO AC-BRKFST 30 Days #30 tablet. 08/02/20 [Rx] Potassium Chloride ER [K-Dur 20] 20 meq PO BID 30 Days #60 tab 08/02/20 [Rx] Sennosides-Docusate Sodium [Senokot-S] 1 each PO BID 30 Days #60 tab 08/02/20 [Rx] atenoloL [Tenormin] 25 mg PO HS 30 Days #30 tab 08/02/20 [Rx] predniSONE 10 mg PO DIRECTED #30 tab 08/02/20 [Rx] traZODone HCL [Desyrel] 200 mg PO HS 30 Days #60 tab 08/02/20 [Rx] Follow up Appointment(s)/Referral(s): Angel Stewart MD [STAFF PHYSICIAN] - 1 Week (The office is closed pleae call and make follow up appointment.) [facility] Visiting Nurse, [NON-STAFF] - As Needed Ambulatory/Diagnostic Orders: Complete Blood Count w/diff [LAB.AMB] Time Frame: 3 Days, Location: None Selected Activity/Diet/Wound Care/Special Instructions: Activity Limited until follow-up Follow-up with primary care provider upon discharge Follow-up with oncology as discussed in [place] Continue current diet Discharge Disposition: HOME WITH HOME HEALTH SERVICES
== END 2020-08-02 16:39 | disposition home health service (06) | DRG 181 ==
LOC: EC 15:04 → 1SOBS 18:19 → OBSVTOIN 07-27 22:39 → 5NMEDONC 07-31 21:16
PROVIDERS: ADMIT Family Medicine; ATTEND Family Medicine
PROC: 30233N1 Transfusion of Nonautologous Red Blood Cells into Peripheral Vein, Percutaneous Approach (ICD-10-PCS; principal; 2020-07-29 09:30)
PROC: 0FB23ZX Excision of Left Lobe Liver, Percutaneous Approach, Diagnostic (ICD-10-PCS; 2020-07-30)
PROC: 05HC33Z Insertion of Infusion Device into Left Basilic Vein, Percutaneous Approach (ICD-10-PCS; 2020-07-30)
DX: C78.00 Secondary malignant neoplasm of unspecified lung (principal); C78.7 Secondary malignant neoplasm of liver and intrahepatic bile duct; E87.1 Hypo-osmolality and hyponatremia; J44.1 Chronic obstructive pulmonary disease with (acute) exacerbation; D63.0 Anemia in neoplastic disease; D72.829 Elevated white blood cell count, unspecified; K21.9 Gastro-esophageal reflux disease without esophagitis; M06.9 Rheumatoid arthritis, unspecified; E03.9 Hypothyroidism, unspecified; F41.9 Anxiety disorder, unspecified; F32.9 Major depressive disorder, single episode, unspecified; D50.9 Iron deficiency anemia, unspecified; I10 Essential (primary) hypertension; I48.91 Unspecified atrial fibrillation; I34.1 Nonrheumatic mitral (valve) prolapse; Z96.643 Presence of artificial hip joint, bilateral; Z96.653 Presence of artificial knee joint, bilateral; Z96.611 Presence of right artificial shoulder joint; Z96.1 Presence of intraocular lens; G89.3 Neoplasm related pain (acute) (chronic); Z20.822 Contact with and (suspected) exposure to COVID-19; E78.5 Hyperlipidemia, unspecified; F17.200 Nicotine dependence, unspecified, uncomplicated; Z90.89 Acquired absence of other organs; Z90.49 Acquired absence of other specified parts of digestive tract; Z85.048 Personal history of other malignant neoplasm of rectum, rectosigmoid junction, and anus; Z79.890 Hormone replacement therapy; Z79.899 Other long term (current) drug therapy; Z88.1 Allergy status to other antibiotic agents; Z88.0 Allergy status to penicillin; Z88.2 Allergy status to sulfonamides; Z88.7 Allergy status to serum and vaccine; Z88.8 Allergy status to other drugs, medicaments and biological substances; Z91.048 Other nonmedicinal substance allergy status; Z86.19 Personal history of other infectious and parasitic diseases; Z90.710 Acquired absence of both cervix and uterus; Z98.890 Other specified postprocedural states; Z98.42 Cataract extraction status, left eye; Z98.41 Cataract extraction status, right eye; Z94.89 Other transplanted organ and tissue status; Z80.1 Family history of malignant neoplasm of trachea, bronchus and lung; Z82.3 Family history of stroke; Z83.6 Family history of other diseases of the respiratory system; Z82.49 Family history of ischemic heart disease and other diseases of the circulatory system
CPT/HCPCS: 36410; 36415; 47000; 71046; 71260; 76700; 76937; 76942; 80053; 82607; 82728; 82746; 83540; 83550; 83625; 83735; 84484; 85025; 85045; 85610; 85730; 86850; 86900; 86901; 86920; 87635; 88307; 88341; 88342; 93005; 96374; 96375; 99285

== ENCOUNTER 2020-08-03 07:34 | Emergency (ER) | payer MEDICARE ==
[2020-08-03] MEDS ORDERED: ASPIRIN 81 MG PO STA (07:45)
[2020-08-03] MEDS ORDERED: HYDROmorphone 0.5 MG/0.5 ML SYRINGE IVP STA (07:45)
--- NOTE | 2020-08-03 07:47 | ED ---
General Adult HPI - General Chief complaint: Chest Pain Stated complaint: chest pain Time Seen by Provider: 08/03/20 07:36 Source: patient, EMS, RN notes reviewed, old records reviewed Mode of arrival: EMS Limitations: no limitations - History of Present Illness Initial comments: Patient is a pleasant 80-year-old female presenting to the emergency Department with complaints of chest discomfort. Symptoms have been present for over a month now. Patient states she was recently in the hospital and diagnosed with pleurisy. Discomfort increases with deep breaths and movements. Discomfort is steady and moderate to severe. Patient states when last the hospital she did receive blood transfusion. Chart review reveals patient did have recent liver biopsy with concerning results. - Related Data Home Medications Medication Instructions Recorded Confirmed oxyCODONE-APAP 10-325MG [Percocet 1 tab PO BID 06/29/19 08/03/20 10-325 mg] Ferrous Sulfate [Iron] 325 mg PO BID 08/03/20 08/03/20 Sennosides-Docusate Sodium 1 tab PO BID 08/03/20 08/03/20 [Senokot-S] predniSONE See Taper PO DAILY 08/03/20 08/03/20 Previous Rx's Medication Instructions Recorded ALPRAZolam [Xanax] 2 mg PO Q8H PRN #12 tab 08/02/20 Citalopram Hydrobromide [CeleXA] 40 mg PO DAILY 30 Days #30 tab 08/02/20 Levothyroxine Sodium [Synthroid] 50 mcg PO DAILY 30 Days #30 tab 08/02/20 Pantoprazole [Protonix] 40 mg PO AC-BRKFST 30 Days #30 08/02/20 tablet Potassium Chloride ER [K-Dur 20] 20 meq PO BID 30 Days #60 tab 08/02/20 atenoloL [Tenormin] 25 mg PO HS 30 Days #30 tab 08/02/20 traZODone HCL [Desyrel] 200 mg PO HS 30 Days #60 tab 08/02/20 Allergies Allergy/AdvReac Type Severity Reaction Status Date / Time adhesive tape Allergy Rash/Hives Verified 08/03/20 08:41 Influenza Virus Vaccines Allergy "MAKES HER Verified 08/03/20 08:41 FEEL SICK" latex Allergy Rash/Hives Verified 08/03/20 08:41 Sulfa (Sulfonamide Allergy Rash/Hives Verified 08/03/20 08:41 Antibiotics) amoxicillin trihydrate AdvReac Diarrhea Verified 08/03/20 08:41 [From Augmentin] ciprofloxacin [From Cipro] AdvReac Unknown Verified 08/03/20 08:41 metronidazole [From Flagyl] AdvReac Unknown Verified 08/03/20 08:41 potassium clavulanate AdvReac Diarrhea Verified 08/03/20 08:41 [From Augmentin] quinidine AdvReac BLOOD CLOTS Verified 08/03/20 08:41 Review of Systems ROS Statement: Those systems with pertinent positive or pertinent negative responses have been documented in the HPI. ROS Other: All systems not noted in ROS Statement are negative. Constitutional: Denies: fever Eyes: Denies: eye pain ENT: Denies: ear pain Respiratory: Denies: cough, dyspnea Cardiovascular: Reports: as per HPI, chest pain Endocrine: Denies: fatigue Gastrointestinal: Denies: abdominal pain Genitourinary: Denies: dysuria Musculoskeletal: Denies: back pain Skin: Denies: rash Neurological: Denies: weakness Past Medical History Past Medical History: Atrial Fibrillation, Atrial Flutter, GERD/Reflux, Hyperlipidemia, Mitral Valve Prolapse (MVP), Rheumatoid Arthritis (RA), Thyroid Disorder Additional Past Medical History / Comment(s): OTHER HX: 03/06/14, 03/30/14, 07/03/14, 07/29/14 with CDIFF colitis, HYPOTHYROID, MVP, urinary incontinence, PROLAPSED MITRAL VALVE- NO PROBLEMS FOR 30 YRS.anemia -requiring blood transfusion hypotension History of Any Multi-Drug Resistant Organisms: C-DIFF Date of last positivie culture/infection: 2015 MDRO Source:: Stool Past Surgical History: Adenoidectomy, Cholecystectomy, Hysterectomy, Joint Replacement, Orthopedic Surgery, Tonsillectomy Additional Past Surgical History / Comment(s): 02/18/16 total R hip arthroplasty. Other surgical HX: BILATERAL KNEE REPLACEMENT (2003-RIGHT & 2005 - LEFT); LOWER LUMBAR LAMINECTOMYL4-L5 (2007); LEFT HIP REPLACEMENT (2012); RIGHT SHOULDER REPLACEMENT (2008), left total knee arthroplasty revision. Bilateral cataracts with lens implants. FECAL TRASPLANT TX FOR C-DIFF three times.cataracts-lens implants hemmoroid removed Past Anesthesia/Blood Transfusion Reactions: No Reported Reaction Additional Past Anesthesia/Blood Transfusion Reaction / Comment(s): blood tra nsfusion in past no reactions Past Psychological History: Anxiety, Depression Smoking Status: Current every day smoker Past Alcohol Use History: None Reported Past Drug Use History: None Reported - Past Family History Mother Family Medical History: Cancer Additional Family Medical History / Comment(s): Mother at age 60 with history of emphysema and lung cancer. Father Family Medical History: CVA/TIA Additional Family Medical History / Comment(s): Father at age 74 with problems with his larynx. Sister(s) Family Medical History: Unable to Obtain Daughter(s) Family Medical History: COPD, Myocardial Infarction ([place]) Additional Family Medical History / Comment(s): Mother at age 60 yrs of emphysema/lung CA Son(s) Family Medical History: Myocardial Infarction ([place]) Additional Family Medical History / Comment(s): Father at age 74yrs with "CVA of his larynx" General Exam Limitations: no limitations General appearance: alert, in no apparent distress Head exam: Present: normocephalic Eye exam: Present: normal appearance Neck exam: Present: normal inspection Respiratory exam: Present: normal lung sounds bilaterally, chest wall tenderness Cardiovascular Exam: Present: regular rate, normal rhythm Expanded Peripheral pulses: 2+: Radial (R), Radial (L), Dorsalis Pedis (R), Dorsalis Pedis (L) GI/Abdominal exam: Present: soft. Absent: tenderness Extremities exam: Present: normal inspection. Absent: pedal edema, calf tenderness Neurological exam: Present: alert Psychiatric exam: Present: normal affect, normal mood Skin exam: Present: normal color Course Vital Signs 08/03/20 07:39 Temperature 98.7 F Pulse Rate 55 L Respiratory 16 Rate Blood Pressure 124/68 O2 Sat by Pulse 96 Oximetry EKG Findings - EKG Comments: EKG Findings:: Sinus bradycardia with a rate of 59. For screening AV block with SD of 220. QRS 76. QT 428. QTC 423. Left axis. Inferior Q waves. Septal Q waves. No acute ST change. Medical Decision Making - Medical Decision Making Patient reevaluated and resting comfortably in bed. Discomfort is tolerable at this time. Case was discussed with practitioner Anai who does recommend increasing fentanyl patch and will follow-up with patient on Wednesday. Case also discussed with Dr. Murillo who is in agreement with plan. Patient is planning to move to [place] on August 13 and start with an oncologist there. Patient updated on results and need for follow-up. - Lab Data Result diagrams: 08/03/20 07:45 08/03/20 07:45 Lab Results 08/03/20 08/03/20 08/03/20 Range/Units 07:45 07:45 07:45 WBC 11.7 H (3.8-10.6) k/uL RBC 3.29 L (3.80-5.40) m/uL Hgb 9.4 L (11.4-16.0) gm/dL Hct 30.4 L (34.0-46.0) % MCV 92.4 (80.0-100.0) fL MCH 28.4 (25.0-35.0) pg MCHC 30.8 L (31.0-37.0) g/dL RDW 19.7 H (11.5-15.5) % Plt Count 366 (150-450) k/uL MPV 7.2 Neutrophils % 90 % Lymphocytes % 4 % Monocytes % 5 % Eosinophils % 0 % Basophils % 0 % Neutrophils # 10.5 H (1.3-7.7) k/uL Lymphocytes # 0.5 L (1.0-4.8) k/uL Monocytes # 0.6 (0-1.0) k/uL Eosinophils # 0.0 (0-0.7) k/uL Basophils # 0.0 (0-0.2) k/uL Hypochromasia Marked Poikilocytosis Slight Anisocytosis Slight Macrocytosis Slight PT 10.2 (9.0-12.0) sec INR 0.9 (<1.2) APTT 19.8 L (22.0-30.0) sec Sodium 131 L (137-145) mmol/L Potassium 4.5 (3.5-5.1) mmol/L Chloride 103 (98-107) mmol/L Carbon Dioxide 25 (22-30) mmol/L Anion Gap 3 mmol/L BUN 20 H (7-17) mg/dL Creatinine 1.01 (0.52-1.04) mg/dL Est GFR (CKD-EPI)AfAm 61 (>60 ml/min/1.73 sqM) Est GFR (CKD-EPI)NonAf 53 (>60 ml/min/1.73 sqM) Glucose 116 H (74-99) mg/dL Calcium 8.9 (8.4-10.2) mg/dL Magnesium 1.9 (1.6-2.3) mg/dL Total Bilirubin 0.3 (0.2-1.3) mg/dL AST 37 H (14-36) U/L ALT 32 (4-34) U/L Alkaline Phosphatase 136 H (38-126) U/L Troponin I (0.000-0.034) ng/mL Total Protein 5.4 L (6.3-8.2) g/dL Albumin 3.1 L (3.5-5.0) g/dL 08/03/20 Range/Units 07:45 WBC (3.8-10.6) k/uL RBC (3.80-5.40) m/uL Hgb (11.4-16.0) gm/dL Hct (34.0-46.0) % MCV (80.0-100.0) fL MCH (25.0-35.0) pg MCHC (31.0-37.0) g/dL RDW (11.5-15.5) % Plt Count (150-450) k/uL MPV Neutrophils % % Lymphocytes % % Monocytes % % Eosinophils % % Basophils % % Neutrophils # (1.3-7.7) k/uL Lymphocytes # (1.0-4.8) k/uL Monocytes # (0-1.0) k/uL Eosinophils # (0-0.7) k/uL Basophils # (0-0.2) k/uL Hypochromasia Poikilocytosis Anisocytosis Macrocytosis PT (9.0-12.0) sec INR (<1.2) APTT (22.0-30.0) sec Sodium (137-145) mmol/L Potassium (3.5-5.1) mmol/L Chloride (98-107) mmol/L Carbon Dioxide (22-30) mmol/L Anion Gap mmol/L BUN (7-17) mg/dL Creatinine (0.52-1.04) mg/dL Est GFR (CKD-EPI)AfAm (>60 ml/min/1.73 sqM) Est GFR (CKD-EPI)NonAf (>60 ml/min/1.73 sqM) Glucose (74-99) mg/dL Calcium (8.4-10.2) mg/dL Magnesium (1.6-2.3) mg/dL Total Bilirubin (0.2-1.3) mg/dL AST (14-36) U/L ALT (4-34) U/L Alkaline Phosphatase (38-126) U/L Troponin I <0.012 (0.000-0.034) ng/mL Total Protein (6.3-8.2) g/dL Albumin (3.5-5.0) g/dL - Radiology Data Radiology results: image reviewed (X-ray shows pulmonary nodules) Disposition Clinical Impression: Pleuritic chest pain Disposition: HOME SELF-CARE Condition: Stable Instructions (If sedation given, give patient instructions): Chest Wall Pain (ED) Additional Instructions: Please follow-up with Dr. Acuna or prabhu Ospina Wednesday as well as Dr. Stewart to arrange future plans. Return for uncontrolled pain, worsening symptoms or other concerns. Is patient prescribed a controlled substance at d/c from ED?: No Referrals: Angel Stewart MD [Primary Care Provider] - 1-2 days Eddie Acuna MD [STAFF PHYSICIAN] - 1-2 days Time of Disposition: 09:19
[2020-08-03 08:16] LABS: Anisocytosis Slight; Basophils % (A) 0 %; Eosinophils % (A) 0 %; HCT 30.4 % (34.0-46.0); HGB 9.4 gm/dL (11.4-16.0); Hypochromasia Marked; Lymphocytes # (A) 0.5 k/uL (1.0-4.8); Lymphocytes % (A) 4 %; MCH 28.4 pg (25.0-35.0); MCHC 30.8 g/dL (31.0-37.0); MCV 92.4 fL (80.0-100.0); Macrocytosis Slight; Mean Platelet Volume 7.2; Monocytes # (A) 0.6 k/uL (0-1.0); Monocytes % (A) 5 %; Neutrophils # (A) 10.5 k/uL (1.3-7.7); Neutrophils % (A) 90 %; Platelet Count 366 k/uL (150-450); Poikilocytosis Slight; RBC 3.29 m/uL (3.80-5.40); RDW 19.7 % (11.5-15.5); WBC 11.7 k/uL (3.8-10.6)
[2020-08-03 08:24] LABS: Albumin 3.1 g/dL (3.5-5.0); Calcium 8.9 mg/dL (8.4-10.2); Magnesium 1.9 mg/dL (1.6-2.3); Potassium 4.5 mmol/L (3.5-5.1); Total Bilirubin 0.3 mg/dL (0.2-1.3); Total Protein 5.4 g/dL (6.3-8.2)
[2020-08-03 08:25] LABS: INR 0.9 (<1.2); Prothrombin Time 10.2 sec (9.0-12.0)
--- NOTE | 2020-08-03 08:40 | XR ---
EXAMINATION TYPE: XR chest 2V DATE OF EXAM: 08/03/2020 COMPARISON: Chest x-ray and CT chest 07/25/2020 and 07/17/2020, 05/23/2020 HISTORY: Chest pain TECHNIQUE: Frontal and lateral views of the chest are obtained. FINDINGS: There is no focal air space opacity, pleural effusion, or pneumothorax seen. The cardiac silhouette size is within normal limits. There are prominent lung volume suggesting underlying COPD. Retrocardiac density with central lucency is consistent with hiatal hernia and partial intrathoracic stomach. Postop changes are noted to the right shoulder. The osseous structures are intact. There are lung nodule seen on prior CT which are not identified with certainty on plain film IMPRESSION: No evident pneumonia. Pulmonary nodules not as well seen on plain film, findings consiste nt with metastatic disease
[2020-08-03 08:48] LABS: Partial Thromboplastin Time 19.8 sec (22.0-30.0)
[2020-08-03 10:20] VITALS: BP 114/67; PULSE 57; RESP 20; TEMP 98.4
== END 2020-08-03 10:23 | disposition home or self-care (01) ==
LOC: EC 07:34
DX: R07.81 Pleurodynia (principal); E78.5 Hyperlipidemia, unspecified; K21.9 Gastro-esophageal reflux disease without esophagitis; M06.9 Rheumatoid arthritis, unspecified; I48.91 Unspecified atrial fibrillation; I34.1 Nonrheumatic mitral (valve) prolapse; E03.9 Hypothyroidism, unspecified; F41.9 Anxiety disorder, unspecified; F32.9 Major depressive disorder, single episode, unspecified; F17.200 Nicotine dependence, unspecified, uncomplicated; Z79.899 Other long term (current) drug therapy; Z79.890 Hormone replacement therapy; Z79.52 Long term (current) use of systemic steroids
CPT/HCPCS: 36415; 93005; 80053; 83735; 84484; 85025; 85610; 85730; 71046; 99285; 96374; J1170

== ENCOUNTER 2020-08-06 07:01 | Inpatient (IN) | payer MEDICARE ==
--- NOTE | 2020-08-06 07:23 | ED ---
SOB HPI - General Chief Complaint: Shortness of Breath Stated Complaint: SOB Time Seen by Provider: 08/06/20 07:01 Source: patient, EMS, RN notes reviewed Mode of arrival: EMS Limitations: no limitations - History of Present Illness Initial Comments: This is a 79-year-old female with a history of COPD chronic kidney disease atrial fibrillation depression who presents today by EMS with complaints of shortness of breath exertional dyspnea. She also states she can't live by herself anymore that she has no help at home. She has difficulty with activit ies of daily living. MD Complaint: shortness of breath, anxiety - Related Data Home Medications Medication Instructions Recorded Confirmed oxyCODONE-APAP 10-325MG [Percocet 1 tab PO BID 06/29/19 08/06/20 10-325 mg] Ferrous Sulfate [Iron] 325 mg PO BID 08/03/20 08/06/20 Sennosides-Docusate Sodium 1 tab PO BID 08/03/20 08/06/20 [Senokot-S] predniSONE See Taper PO DAILY 08/03/20 08/06/20 Previous Rx's Medication Instructions Recorded ALPRAZolam [Xanax] 2 mg PO Q8H PRN #12 tab 08/02/20 Citalopram Hydrobromide [CeleXA] 40 mg PO DAILY 30 Days #30 tab 08/02/20 Levothyroxine Sodium [Synthroid] 50 mcg PO DAILY 30 Days #30 tab 08/02/20 Pantoprazole [Protonix] 40 mg PO AC-BRKFST 30 Days #30 08/02/20 tablet. Potassium Chloride ER [K-Dur 20] 20 meq PO BID 30 Days #60 tab 08/02/20 atenoloL [Tenormin] 25 mg PO HS 30 Days #30 tab 08/02/20 traZODone HCL [Desyrel] 200 mg PO HS 30 Days #60 tab 08/02/20 Allergies Allergy/AdvReac Type Severity Reaction Status Date / Time adhesive tape Allergy Rash/Hives Verified 08/06/20 13:21 Influenza Virus Vaccines Allergy "MAKES HER Verified 08/06/20 13:21 FEEL SICK" latex Allergy Rash/Hives Verified 08/06/20 13:21 Sulfa (Sulfonamide Allergy Rash/Hives Verified 08/06/20 13:21 Antibiotics) amoxicillin trihydrate AdvReac Diarrhea Verified 08/06/20 13:21 [From Augmentin] ciprofloxacin [From Cipro] AdvReac Unknown Verified 08/06/20 13:21 metronidazole [From Flagyl] AdvReac Unknown Verified 08/06/20 13:21 potassium clavulanate AdvReac Diarrhea Verified 08/06/20 13:21 [From Augmentin] quinidine AdvReac BLOOD CLOTS Verified 08/06/20 13:21 Review of Systems ROS Statement: Those systems with pertinent positive or pertinent negative responses have been documented in the HPI. ROS Other: All systems not noted in ROS Statement are negative. Past Medical History Past Medical History: Atrial Fibrillation, Atrial Flutter, GERD/Reflux, Hyperlipidemia, Mitral Valve Prolapse (MVP), Rheumatoid Arthritis (RA), Thyroid Disorder Additional Past Medical History / Comment(s): OTHER HX: 03/06/14, 03/30/14, 07/03/14, 07/29/14 with CDIFF colitis, HYPOTHYROID, MVP, urinary incontinence, PROLAPSED MITRAL VALVE- NO PROBLEMS FOR 30 YRS.anemia -requiring blood transfusion hypotension History of Any Multi-Drug Resistant Organisms: C-DIFF Date of last positivie culture/infection: 2015 MDRO Source:: Stool Past Surgical History: Adenoidectomy, Cholecystectomy, Hysterectomy, Joint Replacement, Orthopedic Surgery, Tonsillectomy Additional Past Surgical History / Comment(s): 02/18/16 total R hip arthroplasty . Other surgical HX: BILATERAL KNEE REPLACEMENT (2003-RIGHT & 2005 - LEFT); LOWER LUMBAR LAMINECTOMYL4-L5 (2007); LEFT HIP REPLACEMENT (2012); RIGHT SHOULDER REPLACEMENT (2008), left total knee arthroplasty revision. Bilateral cataracts with lens implants. FECAL TRASPLANT TX FOR C-DIFF three t imes.cataracts-lens implants hemmoroid removed Past Anesthesia/Blood Transfusion Reactions: No Reported Reaction Additional Past Anesthesia/Blood Transfusion Reaction / Comment(s): blood transfusion in past no reactions Past Psychological History: Anxiety, Depression Smoking Status: Current every day smoker Past Alcohol Use History: None Reported Past Drug Use History: None Reported - Past Family History Mother Family Medical History: Cancer Additional Family Medical History / Comment(s): Mother at age 60 with history of emphysema and lung cancer. Father Family Medical History: CVA/TIA Additional Family Medical History / Comment(s): Father at age 74 with problems with his larynx. Sister(s) Family Medical History: Unable to Obtain Daughter(s) Family Medical History: COPD, Myocardial Infarction ([place]) Additional Family Medical History / Comment(s): Mother at age 60 yrs of emphysema/lung CA Son(s) Family Medical History: Myocardial Infarction ([place]) Additional Family Medical History / Comment(s): Father at age 74yrs with "CVA of his larynx" General Exam - General Exam Comments Initial Comments: This is a 80-year-old female was awake alert oriented 3. Anxious Limitations: no limitations General appearance: alert, anxious Head exam: Present: atraumatic, normocephalic, normal inspection Eye exam: Present: normal appearance, PERRL, EOMI. Absent: scleral icterus, conjunctival injection, periorbital swelling ENT exam: Present: mucous membranes dry Neck exam: Present: normal inspection. Absent: tenderness, meningismus, lymphadenopathy Respiratory exam: Present: decreased breath sounds. Absent: respiratory distress, wheezes, rales, rhonchi, stridor Cardiovascular Exam: Present: regular rate, normal rhythm, normal heart sounds. Absent: systolic murmur, diastolic murmur, rubs, gallop, clicks GI/Abdominal exam: Present: soft, normal bowel sounds. Absent: distended, tenderness, guarding, rebound, rigid Extremities exam: Present: normal inspection, full ROM, normal capillary refill. Absent: tenderness, pedal edema, joint swelling, calf tenderness Back exam: Present: normal inspection Neurological exam: Present: alert, oriented X3, CN II-XII intact Psychiatric exam: Present: normal affect, normal mood Skin exam: Present: warm, dry, intact, normal color. Absent: rash Course Vital Signs 08/06/20 08/06/20 07:04 08:59 Temperature 98.2 F Pulse Rate 77 72 Respiratory 20 18 Rate Blood Pressure 129/79 117/72 O2 Sat by Pulse 96 95 Oximetry Medical Decision Making - Medical Decision Making The patient will be admitted as per dr. Stewart - Lab Data Result diagrams: 08/06/20 08:55 08/06/20 08:07 Lab Results 08/06/20 08/06/20 08/06/20 Range/Units 08:07 08:07 08:07 WBC (3.8-10.6) k/uL RBC (3.80-5.40) m/uL Hgb (11.4-16.0) gm/dL Hct (34.0-46.0) % MCV (80.0-100.0) fL MCH (25.0-35.0) pg MCHC (31.0-37.0) g/dL RDW (11.5-15.5) % Plt Count (150-450) k/uL MPV Neutrophils % % Lymphocytes % % Monocytes % % Eosinophils % % Basophils % % Neutrophils # (1.3-7.7) k/uL Lymphocytes # (1.0-4.8) k/uL Monocytes # (0-1.0) k/uL Eosinophils # (0-0.7) k/uL Basophils # (0-0.2) k/uL Hypochromasia Poikilocytosis Anisocytosis Macrocytosis PT 10.3 (9.0-12.0) sec INR 1.0 (<1.2) APTT 20.1 L (22.0-30.0) sec Sodium 133 L (137-145) mmol/L Potassium 3.8 (3.5-5.1) mmol/L Chloride 100 (98-107) mmol/L Carbon Dioxide 29 (22-30) mmol/L Anion Gap 4 mmol/L BUN 17 (7-17) mg/dL Creatinine 0.70 (0.52-1.04) mg/dL Est GFR (CKD-EPI)AfAm >90 (>60 ml/min/1.73 sqM) Est GFR (CKD-EPI)NonAf 83 (>60 ml/min/1.73 sqM) Glucose 95 (74-99) mg/dL Lactic Ac Sepsis Rflx Plasma Lactic Acid Gianluca 2.4 H* (0.7-2.0) mmol/L Calcium 8.8 (8.4-10.2) mg/dL Magnesium 1.8 (1.6-2.3) mg/dL Total Bilirubin 0.4 (0.2-1.3) mg/dL AST 31 (14-36) U/L ALT 27 (4-34) U/L Alkaline Phosphatase 131 H (38-126) U/L Creatine Kinase 24 L (30-135) U/L Troponin I (0.000-0.034) ng/mL NT-Pro-B Natriuret Pep pg/mL Total Protein 5.5 L (6.3-8.2) g/dL Albumin 3.3 L (3.5-5.0) g/dL Influenza Type A (PCR) (Not Detectd) Influenza Type B (PCR) (Not Detectd) RSV (PCR) (Not Detectd) SARS-CoV-2 (PCR) (Not Detectd) 08/06/20 08/06/20 08/06/20 Range/Units 08:07 08:42 08:55 WBC (3.8-10.6) k/uL RBC (3.80-5.40) m/uL Hgb (11.4-16.0) gm/dL Hct (34.0-46.0) % MCV (80.0-100.0) fL MCH (25.0-35.0) pg MCHC (31.0-37.0) g/dL RDW (11.5-15.5) % Plt Count (150-450) k/uL MPV Neutrophils % % Lymphocytes % % Monocytes % % Eosinophils % % Basophils % % Neutrophils # (1.3-7.7) k/uL Lymphocytes # (1.0-4.8) k/uL Monocytes # (0-1.0) k/uL Eosinophils # (0-0.7) k/uL Basophils # (0-0.2) k/uL Hypochromasia Poikilocytosis Anisocytosis Macrocytosis PT (9.0-12.0) sec INR (<1.2) APTT (22.0-30.0) sec Sodium (137-145) mmol/L Potassium (3.5-5.1) mmol/L Chloride (98-107) mmol/L Carbon Dioxide (22-30) mmol/L Anion Gap mmol/L BUN (7-17) mg/dL Creatinine (0.52-1.04) mg/dL Est GFR (CKD-EPI)AfAm (>60 ml/min/1.73 sqM) Est GFR (CKD-EPI)NonAf (>60 ml/min/1.73 sqM) Glucose (74-99) mg/dL Lactic Ac Sepsis Rflx Y Plasma Lactic Acid Gianluca (0.7-2.0) mmol/L Calcium (8.4-10.2) mg/dL Magnesium (1.6-2.3) mg/dL Total Bilirubin (0.2-1.3) mg/dL AST (14-36) U/L ALT (4-34) U/L Alkaline Phosphatase (38-126) U/L Creatine Kinase (30-135) U/L Troponin I <0.012 (0.000-0.034) ng/mL NT-Pro-B Natriuret Pep 1050 pg/mL Total Protein (6.3-8.2) g/dL Albumin (3.5-5.0) g/dL Influenza Type A (PCR) (Not Detectd) Influenza Type B (PCR) (Not Detectd) RSV (PCR) (Not Detectd) SARS-CoV-2 (PCR) (Not Detectd) 08/06/20 08/06/20 Range/Units 08:55 11:06 WBC 13.4 H (3.8-10.6) k/uL RBC 3.10 L (3.80-5.40) m/uL Hgb 9.2 L (11.4-16.0) gm/dL Hct 29.0 L (34.0-46.0) % MCV 93.5 (80.0-100.0) fL MCH 29.7 (25.0-35.0) pg MCHC 31.8 (31.0-37.0) g/dL RDW 18.7 H (11.5-15.5) % Plt Count 292 (150-450) k/uL MPV 7.1 Neutrophils % 87 % Lymphocytes % 6 % Monocytes % 6 % Eosinophils % 0 % Basophils % 0 % Neutrophils # 11.7 H (1.3-7.7) k/uL Lymphocytes # 0.8 L (1.0-4.8) k/uL Monocytes # 0.8 (0-1.0) k/uL Eosinophils # 0.1 (0-0.7) k/uL Basophils # 0.0 (0-0.2) k/uL Hypochromasia Marked Poikilocytosis Slight Anisocytosis Slight Macrocytosis Slight PT (9.0-12.0) sec INR (<1.2) APTT (22.0-30.0) sec Sodium (137-145) mmol/L Potassium (3.5-5.1) mmol/L Chloride (98-107) mmol/L Carbon Dioxide (22-30) mmol/L Anion Gap mmol/L BUN (7-17) mg/dL Creatinine (0.52-1.04) mg/dL Est GFR (CKD-EPI)AfAm (>60 ml/min/1.73 sqM) Est GFR (CKD-EPI)NonAf (>60 ml/min/1.73 sqM) Glucose (74-99) mg/dL Lactic Ac Sepsis Rflx Plasma Lactic Acid Gianluca (0.7-2.0) mmol/L Calcium (8.4-10.2) mg/dL Magnesium (1.6-2.3) mg/dL Total Bilirubin (0.2-1.3) mg/dL AST (14-36) U/L ALT (4-34) U/L Alkaline Phosphatase (38-126) U/L Creatine Kinase (30-135) U/L Troponin I (0.000-0.034) ng/mL NT-Pro-B Natriuret Pep pg/mL Total Protein (6.3-8.2) g/dL Albumin (3.5-5.0) g/dL Influenza Type A (PCR) Not Detected (Not Detectd) Influenza Type B (PCR) Not Detected (Not Detectd) RSV (PCR) Not Detected (Not Detectd) SARS-CoV-2 (PCR) Not Detected (Not Detectd) - EKG Data -: EKG Interpreted by Pa EKG shows normal: sinus rhythm EKG Comments: Normal sinus rhythm a 68 LA interval 208 QRS duration is 78 QT since QTC 420/446 evidence of old inferior and anteroseptal changes - Radiology Data Radiology results: report reviewed (COPD), image reviewed Disposition Clinical Impression: Acute exacerbation of chronic obstructive pulmonary disease, Failure to thrive syndrome, adult, 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
[2020-08-06] MEDS ORDERED: ALBUTEROL HFA INHALER INHALATION STA (07:35)
[2020-08-06] MEDS ORDERED: SODIUM CHLORIDE 0.9% 500 ML 500 ML IV STA (07:35)
[2020-08-06] MEDS ORDERED: SODIUM CHLORIDE 0.9% 1,000 ML IV STA ×2 (07:35→09:21)
[2020-08-06 08:36] LABS: ALT 27 U/L (4-34); AST 31 U/L (14-36); African American GFR (CKD) >90 (>60 ml/min/1.73 sqM); Albumin 3.3 g/dL (3.5-5.0); Alkaline Phosphatase 131 U/L (38-126); Anion Gap 4 mmol/L; Blood Urea Nitrogen 17 mg/dL (7-17); Calcium 8.8 mg/dL (8.4-10.2); Carbon Dioxide 29 mmol/L (22-30); Chloride 100 mmol/L (98-107); Creatine Kinase 24 U/L (30-135); Glucose 95 mg/dL (74-99); Magnesium 1.8 mg/dL (1.6-2.3); Non-African American GFR(CKD) 83 (>60 ml/min/1.73 sqM); Potassium 3.8 mmol/L (3.5-5.1); Sodium 133 mmol/L (137-145); Total Bilirubin 0.4 mg/dL (0.2-1.3); Total Protein 5.5 g/dL (6.3-8.2)
[2020-08-06 08:42] LABS: Prothrombin Time 10.3 sec (9.0-12.0)
--- NOTE | 2020-08-06 09:22 | XR ---
EXAMINATION TYPE: XR chest 2V DATE OF EXAM: 08/06/2020 COMPARISON: 08/03/2020 TECHNIQUE: PA and lateral views submitted. HISTORY: Difficulty breathing FINDINGS: Large hiatal hernia noted with coarsened interstitial markings. Heart size normal. Postsurgical villareal e right shoulder. Diffuse osteopenia with arthropathy involving bilateral shoulders. No pleural effus ion or pneumothorax. Degenerative changes of the spine. IMPRESSION: 1. COPD with large hiatal hernia. Coarsened interstitium stable. Previous noted pulmonary nodules not as well seen on standard x-ray compared to CAT scan.
[2020-08-06 09:25] LABS: Partial Thromboplastin Time 20.1 sec (22.0-30.0)
[2020-08-06] MEDS ORDERED: KETOROLAC 15 MG/ML 1 ML VIAL IVP STA ×2 (09:38→14:11)
[2020-08-06 09:52] LABS: Anisocytosis Slight; Basophils % (A) 0 %; Eosinophils # (A) 0.1 k/uL (0-0.7); Eosinophils % (A) 0 %; HGB 9.2 gm/dL (11.4-16.0); Hypochromasia Marked; Lymphocytes # (A) 0.8 k/uL (1.0-4.8); Lymphocytes % (A) 6 %; MCH 29.7 pg (25.0-35.0); MCHC 31.8 g/dL (31.0-37.0); MCV 93.5 fL (80.0-100.0); Macrocytosis Slight; Mean Platelet Volume 7.1; Monocytes # (A) 0.8 k/uL (0-1.0); Monocytes % (A) 6 %; Neutrophils # (A) 11.7 k/uL (1.3-7.7); Neutrophils % (A) 87 %; Platelet Count 292 k/uL (150-450); Poikilocytosis Slight; RDW 18.7 % (11.5-15.5); WBC 13.4 k/uL (3.8-10.6)
[2020-08-06] MEDS ORDERED: NALOXONE 0.4 MG/ML 1 ML VIAL IV PRN (15:10)
[2020-08-06 15:43] LABS: Appearance,Urine Cloudy (Clear); Bacteria,Urine Rare /hpf; Bilirubin,Urine Negative (Negative); Blood,Urine Negative (Negative); Color,Urine Yellow; Glucose,Urine (UA) Negative (Negative); Hyaline Casts,Urine 10 /lpf (0-2); Ketones,Urine Negative (Negative); Leukocyte Esterase,Urine Moderate (Negative); Mucus,Urine Many /hpf; Nitrite,Urine Negative (Negative); PH, Urine 5.5 (5.0-8.0); Protein,Urine Trace (Negative); RBC,Urine 1 /hpf (0-5); Specific Gravity,Urine 1.022 (1.001-1.035); Squamous Epithelial Cell,Urine 4 /hpf (0-4); WBC,Urine 20 /hpf (0-5)
[2020-08-06] MEDS ORDERED: IPRATROPIUM-ALBUTEROL 3 ML NEB INHALATION SCH (16:00)
[2020-08-06] MEDS ORDERED: IPRATROPIUM-ALBUTEROL 3 ML NEB INHALATION PRN (19:12)
[2020-08-06] MEDS: SENNOSIDES-DOCUSATE SODIUM 1 EACH TAB PO SCH (20:46)
[2020-08-06] MEDS: SODIUM CHLORIDE 0.9% 1,000 ML IV SCH (20:46)
[2020-08-06] MEDS: POTASSIUM CHLORIDE ER 20 MEQ TAB.ER PO SCH (20:47)
[2020-08-06] MEDS: ALPRAZolam 1 MG TAB PO PRN (20:47)
[2020-08-06] MEDS: FERROUS SULFATE 325 MG TAB PO SCH (20:47)
[2020-08-06] MEDS: traZODone HCL 100 MG TAB PO SCH (20:47)
[2020-08-06] MEDS: atenoloL 25 MG TAB PO SCH (20:48)
[2020-08-06] MEDS: oxyCODONE-APAP 10-325MG 1 EACH TAB PO SCH (20:48)
[2020-08-06] MEDS: IPRATROPIUM-ALBUTEROL 3 ML NEB INHALATION SCH (20:58)
[2020-08-07] MEDS: SODIUM CHLORIDE 0.9% 1,000 ML IV SCH ×3 (06:07→22:49)
--- NOTE | 2020-08-07 08:08 | P.CONS ---
History of Present Illness - Reason for Consult Consult date: 08/07/20 recent progression - Chief Complaint Acute Resp Failure - History of Present Illness Ms Trejo is a Pleasant white female, initially seen in consult at [facility] on 03/16/18. She has a long-standing history of iron def anemia, that was diagnosed initially in 2012. She has had extensive workup including EGD and colonoscopy in 2014, and then EGD again in 2016. These were overall negative. The patient had been on oral iron supplementation, with somewhat irregular use due to constipation. During that episode in 2016 she had inquired about 6-8 units of packed red blood cells. The patient was admitted this time, with increasing shortness of breath and progressive weakness. She was found to have a hemoglobin of 5.2 with further drop to 4.4. She was treated with multiple blood transfusions, with iron studies again suggestive of iron deficiency. Though MMA was normal, B12 had shown a significant drop compared to 2017. The patient was discharged with a plan for IV iron supplementation as an outpatient. During that admission, she also had a capsule endoscopy that was negative The patient was unable to keep appointments in the office, due to difficulties with transportation and weakness. She was admitted to the hospital again on 05/11/18 with hemoglobin in the 5 range and was discharged after transfusion. She, unfortunately, again missed appointment due to transportation issues and was ultimately seen for her first office visit on 06/06/18. 06/22/18-Pt here for f/u after hospitalization admitted 06/07/18 for Hgb around 5, she received 3 units of PRBCs as well as 3-4 doses of parenteral iron, home care is doing labs, her Hgb was 9.6 yesterday. Pt has c/o chronic fatigue, she thinks she may be mildly depressed, no suicidial ideation, denies F,N,V, diarrhea, constipation or pain, no other c/o/, questions or concerns. as above. W/U for PNH was negative. ASA was stopped at her visit in 05/31. Her Hgb was improved to 13 in 07/29. 11/02/18: Diarrhea with incontinence last 4 days (5-6 times a day), Rectum pain, urine incontininence, As above. Her iron studies showed sat > 20% though ferritin was in the low end of normal. interestingly hemoglobin has remained from 8 into the 10 range during this time CT of the abdomen and pelvis in 12/29 showed a large portion of the stomach herniated into the thorax. No other abnormality was noted He most recent Iv iron was in -03/30. She continued on PO iron 1 /d Telemedicine Visit 07/19/19: ( Audio Visual) the patient reported a hospital admission in late 06/29, for 4 days, for pneumonia. She was treated with antibiotics and completed a course post discharge. However since then, she has generally been weaker overall, with decreased appetite and motivation. She continues to have shortness of breath on exertion though this is improved from hospitalization. She denied any fevers/chills/nausea/vomiting/obvious bleeding. Bowel movements are regular. Joint issues are persistent and stable. She is mostly using a walker for ambulation. A intrathecal pain pump implantation was performed in 05/01. Review of systems otherwise as per HPI and negative out of 10. as above. The patient again required IV iron in 07/30 as hemoglobin had dropped into the 8 range, along with drop in iron stores. the patient was admitted to the hospital in early 10/29 because of bleeding per rectum. She had a colonoscopy with polyps removed that were benign. She was noted to have external hemorrhoids that were felt to be the bleeding. She underwent hemorrhoid excision on 10/18/19. Pathology however showed malignant melanoma extending to the deep margins at least 8 mm in thickness. PET scan that was negative. She was referred to the [facility]. Surgical oncology. She was seen by them and also by dermatology. She had an MRI of the brain that was negative. On exam she was found to have no residual disease. After careful evaluation, it was decided to follow her with patient with regular skin exams and imaging Mrs. Trejo has been seen in emergency departmentment 4 or 5 tmes this month. During her last admission she underwent liver biopsy which was positive for recurrent metastatic melanoma. The plan was for her to travel to [place] and to follow-up with her Oncologic care there however she continues to have difficulties at home and represents to hospital with complaints of pain, shortness of breath and difficulties ADL at home. Review of Systems All systems: negative Constitutional: Reports as per HPI Past Medical History Past Medical History: Atrial Fibrillation, Atrial Flutter, GERD/Reflux, Hyperlipidemia, Mitral Valve Prolapse (MVP), Rheumatoid Arthritis (RA), Thyroid Disorder Additional Past Medical History / Comment(s): OTHER HX: 03/06/14, 03/30/14, 07/03/14, 07/29/14 with CDIFF colitis, HYPOTHYROID, MVP, urinary incontinence, PROLAPSED MITRAL VALVE- NO PROBLEMS FOR 30 YRS.anemia -requiring blood transfusion hypotension History of Any Multi-Drug Resistant Organisms: C-DIFF Year Discovered:: 2016 MDRO Source:: Stool Past Surgical History: Adenoidectomy, Cholecystectomy, Hysterectomy, Joint R eplacement, Orthopedic Surgery, Tonsillectomy Additional Past Surgical History / Comment(s): 02/18/16 total R hip arthroplasty. Other surgical HX: BILATERAL KNEE REPLACEMENT (2003-RIGHT & 2005 - LEFT); LOWER LUMBAR LAMINECTOMYL4-L5 (2007); LEFT HIP REPLACEMENT (2012); RIGHT SHOULDER REPLACEMENT (2008), left total knee arthroplasty revision. Bilateral cataracts with lens implants. FECAL TRASPLANT TX FOR C-DIFF three times.cataracts-lens implants hemmoroid removed Past Anesthesia/Blood Transfusion Reactions: No Reported Reaction Additional Past Anesthesia/Blood Transfusion Reaction / Comm: blood transfusion in past no reactions Past Psychological History: Anxiety, Depression Additional Psychological History / Comment(s): Pt resides in her own home. Her nephew who is very ill stays with pt. She uses a walker to ambulate. She has a nebulizer, She is able to drive. Smoking Status: Current every day smoker Past Alcohol Use History: None Reported Additional Past Alcohol Use History / Comment(s): Patient has smoked since 1954- 5 cig per day. No alcohol use or abuse. Past Drug Use History: None Reported - Past Family History Mother Family Medical History: Cancer Additional Family Medical History / Comment(s): Mother at age 60 with history of emphysema and lung cancer. Father Family Medical History: CVA/TIA Additional Family Medical History / Comment(s): Father at age 74 with problems with his larynx. Sister(s) Family Medical History: Unable to Obtain Daughter(s) Family Medical History: COPD, Myocardial Infarction ([place]) Additional Family Medical History / Comment(s): Mother at age 60 yrs of emphysema/lung CA Son(s) Family Medical History: Myocardial Infarction ([place]) Additional Family Medical History / Comment(s): Father at age 74yrs with "CVA of his larynx" Medications and Allergies Home Medications Medication Instructions Recorded Confirmed Type oxyCODONE-APAP 10-325MG [Percocet 1 tab PO BID 06/29/19 08/06/20 History 10-325 mg] ALPRAZolam [Xanax] 2 mg PO Q8H PRN #12 tab 08/02/20 08/06/20 Rx Citalopram Hydrobromide [CeleXA] 40 mg PO DAILY 30 Days #30 tab 08/02/20 08/06/20 Rx Levothyroxine Sodium [Synthroid] 50 mcg PO DAILY 30 Days #30 tab 08/02/20 08/06/20 Rx Pantoprazole [Protonix] 40 mg PO AC-BRKFST 30 Days #30 08/02/20 08/06/20 Rx tablet. Potassium Chloride ER [K-Dur 20] 20 meq PO BID 30 Days #60 tab 08/02/20 08/06/20 Rx atenoloL [Tenormin] 25 mg PO HS 30 Days #30 tab 08/02/20 08/06/20 Rx traZODone HCL [Desyrel] 200 mg PO HS 30 Days #60 tab 08/02/20 08/06/20 Rx Ferrous Sulfate [Iron] 325 mg PO BID 08/03/20 08/06/20 History Sennosides-Docusate Sodium 1 tab PO BID 08/03/20 08/06/20 History [Senokot-S] predniSONE See Taper PO DAILY 08/03/20 08/06/20 History Allergies Allergy/AdvReac Type Severity Reaction Status Date / Time adhesive tape Allergy Rash/Hives Verified 08/06/20 13:21 Influenza Virus Vaccines Allergy "MAKES HER Verified 08/06/20 13:21 FEEL SICK" latex Allergy Rash/Hives Verified 08/06/20 13:21 Sulfa (Sulfonamide Allergy Rash/Hives Verified 08/06/20 13:21 Antibiotics) amoxicillin trihydrate AdvReac Diarrhea Verified 08/06/20 13:21 [From Augmentin] ciprofloxacin [From Cipro] AdvReac Unknown Verified 08/06/20 13:21 metronidazole [From Flagyl] AdvReac Unknown Verified 08/06/20 13:21 potassium clavulanate AdvReac Diarrhea Verified 08/06/20 13:21 [From Augmentin] quinidine AdvReac BLOOD CLOTS Verified 08/06/20 13:21 Physical Exam Vitals: Vital Signs Temp Pulse Pulse Resp BP BP Pulse Ox 08/07/20 07:52 77 17 08/07/20 01:17 98.5 F 77 17 113/61 98 08/06/20 21:11 72 08/06/20 21:01 72 08/06/20 19:31 98.2 F 68 18 105/66 96 08/06/20 18:16 98.2 F 73 16 116/66 96 08/06/20 08:59 72 18 117/72 95 Intake and Output 08/06/20 08/07/20 08/07/20 22:59 06:59 14:59 Other: Voiding Method Bedside Commode Bedside Commode Diaper Diaper # Bowel Movements 4 4 Weight 77.111 kg - Constitutional General appearance: cooperative, no acute distress - EENT Eyes: EOMI, PERRLA ENT: hard of hearing, NA/AT, normal oropharynx - Neck Neck: normal ROM - Respiratory Respiratory: left: rhonchi, bilateral: diminished (no increased effort) - Cardiovascular Rhythm: irregularly irregular - Gastrointestinal General gastrointestinal: soft, tenderness - Integumentary Integumentary: pale - Neurologic Neurologic: CNII-XII intact - Musculoskeletal Musculoskeletal: generalized weakness - Psychiatric Psychiatric: A&O x's 3, appropriate affect, intact judgment & insight Results CBC & Chem 7: 08/06/20 08:55 08/06/20 08:07 Labs: Abnormal Lab Results - Last 24 Hours (Table) 08/06/20 08/06/20 08/06/20 Range/Units 08:07 08:07 08:07 WBC (3.8-10.6) k/uL RBC (3.80-5.40) m/uL Hgb (11.4-16.0) gm/dL Hct (34.0-46.0) % RDW (11.5-15.5) % Neutrophils # (1.3-7.7) k/uL Lymphocytes # (1.0-4.8) k/uL APTT 20.1 L (22.0-30.0) sec Sodium 133 L (137-145) mmol/L Plasma Lactic Acid Gianluca 2.4 H* (0.7-2.0) mmol/L Alkaline Phosphatase 131 H (38-126) U/L Creatine Kinase 24 L (30-135) U/L Total Protein 5.5 L (6.3-8.2) g/dL Albumin 3.3 L (3.5-5.0) g/dL Urine Appearance (Clear) Urine Protein (Negative) Ur Leukocyte Esterase (Negative) Urine WBC (0-5) /hpf Urine Bacteria (None) /hpf Hyaline Casts (0-2) /lpf Urine Mucus (None) /hpf 08/06/20 08/06/20 08/06/20 Range/Units 08:55 15:31 22:46 WBC 13.4 H (3.8-10.6) k/uL RBC 3.10 L (3.80-5.40) m/uL Hgb 9.2 L (11.4-16.0) gm/dL Hct 29.0 L (34.0-46.0) % RDW 18.7 H (11.5-15.5) % Neutrophils # 11.7 H (1.3-7.7) k/uL Lymphocytes # 0.8 L (1.0-4.8) k/uL APTT (22.0-30.0) sec Sodium (137-145) mmol/L Plasma Lactic Acid Gianluca 2.9 H* (0.7-2.0) mmol/L Alkaline Phosphatase (38-126) U/L Creatine Kinase (30-135) U/L Total Protein (6.3-8.2) g/dL Albumin (3.5-5.0) g/dL Urine Appearance Cloudy H (Clear) Urine Protein Trace H (Negative) Ur Leukocyte Esterase Moderate H (Negative) Urine WBC 20 H (0-5) /hpf Urine Bacteria Rare H (None) /hpf Hyaline Casts 10 H (0-2) /lpf Urine Mucus Many H (None) /hpf 08/07/20 Range/Units 03:04 WBC (3.8-10.6) k/uL RBC (3.80-5.40) m/uL Hgb (11.4-16.0) gm/dL Hct (34.0-46.0) % RDW (11.5-15.5) % Neutrophils # (1.3-7.7) k/uL Lymphocytes # (1.0-4.8) k/uL APTT (22.0-30.0) sec Sodium (137-145) mmol/L Plasma Lactic Acid Gianluca 2.4 H* (0.7-2.0) mmol/L Alkaline Phosphatase (38-126) U/L Creatine Kinase (30-135) U/L Total Protein (6.3-8.2) g/dL Albumin (3.5-5.0) g/dL Urine Appearance (Clear) Urine Protein (Negative) Ur Leukocyte Esterase (Negative) Urine WBC (0-5) /hpf Urine Bacteria (None) /hpf Hyaline Casts (0-2) /lpf Urine Mucus (None) /hpf Microbiology - Last 24 Hours (Table) 08/06/20 15:31 Urine Culture - Preliminary Urine,Clean Catch Assessment and Plan Plan: Assessment and Plan (1) Normocytic anemia Current Visit: Yes Status: Acute Code(s): D64.9 - ANEMIA, UNSPECIFIED SNOMED Code(s): 553758932 (2) Malignant melanoma of rectum Current Visit: Yes Status: Acute Code(s): C20 - MALIGNANT NEOPLASM OF RECTUM SNOMED Code(s): 245241771 (3) Lung nodules Current Visit: Yes Status: Acute Code(s): R91.8 - OTHER NONSPECIFIC ABNORMAL FINDING OF LUNG FIELD SNOMED Code(s): 580360088 Plan: Assessment and Recommendations: Newly Identified subcentimeter pulmonary nodules (numerous): - With known history of melanoma consideration of a metastatic process must be considered Normocytic Anemia: Acute Chronic - Hemoglobin improved to 8 today - DC - NSAIDS with known GI blood loss and pathologies - Parental Iron 3/3 at last admission Melanoma of the Rectal Skin: - Diagnosed in 2019, surgical resection, limited disease no residual disease - Continues to follow at [facility] for surveillance and last CT 05/2020 RANDI Multiple liver Lesions: - With newly found pulmonary nodules and new hypoechoic liver lesions Right up to 2.5cm, Left approx 1.5 per ultrasound - Status post Liver biopsy 07/30, consistent with metastatic melanoma Neoplastic related pain: - COntinue long acting and breakthrough in anticipation of discharge. Senna-s for narcotic induced constipation Plan: - CTA for chest pain complaints - Unable to self care at home, plan assistance at discharge - Patient has decided to continue with treatment here and not go to [place], will continue plan for treatment here with Dr. Acuna Physician Attest: I have completed the full history and physical and agree with above dictation, dictated as a ascribe.
[2020-08-07] MEDS: LEVOTHYROXINE 50 MCG TAB PO SCH (08:23)
[2020-08-07] MEDS: predniSONE 10 MG TAB PO SCH (08:23)
[2020-08-07] MEDS: PANTOPRAZOLE 40 MG TABLET PO SCH (08:23)
[2020-08-07] MEDS: POTASSIUM CHLORIDE ER 20 MEQ TAB.ER PO SCH ×2 (08:24→20:36)
[2020-08-07] MEDS: CITALOPRAM HYDROBROMIDE 20 MG TAB PO SCH (08:24)
[2020-08-07] MEDS: FERROUS SULFATE 325 MG TAB PO SCH ×2 (08:24→20:36)
[2020-08-07] MEDS: oxyCODONE-APAP 10-325MG 1 EACH TAB PO SCH (08:24)
[2020-08-07] MEDS: SENNOSIDES-DOCUSATE SODIUM 1 EACH TAB PO SCH ×2 (08:24→20:33)
[2020-08-07] MEDS: IPRATROPIUM-ALBUTEROL 3 ML NEB INHALATION SCH ×3 (13:20→21:25)
--- NOTE | 2020-08-07 15:06 | CT ---
EXAMINATION TYPE: CT angio chest DATE OF EXAM: 08/07/2020 2:45 PM COMPARISON: CT chest 13 days ago HISTORY: Chest pain, hypercoag state, assess PE. History of melanoma. CT DLP: 455.3 mGycm Automated exposure control for dose reduction was used. CONTRAST: CTA scan of the thorax is performed with IV Contrast, patient injected with 100 mL of Isovue 370, pul monary embolism protocol. MIP images are created and reviewed. FINDINGS: LUNGS: Mild biapical pleural/parenchymal scarring is redemonstrated. Streak artifact from right femor al prosthesis makes evaluation suboptimal for subcentimeter nodules along with patient's inability to hold breath. Some scattered subcentimeter nodules are present bilaterally best visualized in the rig ht upper lobe and bilateral bases. Largest 9 x 6 mm posterior right upper lobe nodule image 51 is sta ble. Persistent small to tiny left pleural effusion increased in size from prior with adjacent compre ssive atelectasis. Fairly stable tiny right pleural effusion with medial curvilinear component redemo nstrated is larger in size. There is an enlarging 1.6 x 0.8 cm posterior medial left basilar nodule i mage 92 from prior study. MEDIASTINUM: There is satisfactory enhancement of the pulmonary artery and its branches, there is no CT evidence for pulmonary embolism. Satisfactory enhancement of the aorta. Stable 4.2 cm ascending a ortic aneurysm maximum 61 are no greater than 1 cm hilar or mediastinal lymph nodes. No cardiomegal y or pericardial effusion is seen. Large hiatal hernia with malrotated stomach redemonstrated. Yeung ry artery calcification redemonstrated. OTHER: Osseous structures remain demineralized. Underlying scoliosis is present. Vague areas of scle rosis are nonspecific, for reference suspect subacute fracture through the superior T12 endplate. The re is a suspicious lucent lesion left T11 vertebra identified. IMPRESSION: 1. No CT evidence for acute pulmonary embolism. 2. Scattered small pulmonary nodules greatest in the lower lungs redemonstrated, suspect hematogenous metastatic disease. Suspect osseous lytic metastatic disease with both visualized lesion left T11 ve rtebra. Correlate clinically. 3. Stable 4.2 cm ascending aortic aneurysm.
[2020-08-07] MEDS: oxyCODONE-APAP 10-325MG 1 EACH TAB PO PRN (17:00)
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
[2020-08-07] MEDS: traZODone HCL 100 MG TAB PO SCH (20:36)
[2020-08-07] MEDS: atenoloL 25 MG TAB PO SCH (20:36)
[2020-08-07] MEDS: ALPRAZolam 1 MG TAB PO PRN (20:37)
[2020-08-08] MEDS: SODIUM CHLORIDE 0.9% 1,000 ML IV SCH ×3 (00:57→20:25)
[2020-08-08] MEDS: LEVOTHYROXINE 50 MCG TAB PO SCH (05:32)
[2020-08-08] MEDS: SENNOSIDES-DOCUSATE SODIUM 1 EACH TAB PO SCH ×2 (06:35→20:18)
[2020-08-08] MEDS: IPRATROPIUM-ALBUTEROL 3 ML NEB INHALATION SCH ×4 (07:17→20:23)
[2020-08-08 07:28] LABS: Anisocytosis Slight; Basophils % (A) 0 %; Eosinophils # (A) 0.2 k/uL (0-0.7); Eosinophils % (A) 2 %; HCT 28.5 % (34.0-46.0); Hypochromasia Marked; Lymphocytes # (A) 0.6 k/uL (1.0-4.8); Lymphocytes % (A) 7 %; MCH 30.1 pg (25.0-35.0); MCHC 31.5 g/dL (31.0-37.0); MCV 95.7 fL (80.0-100.0); Macrocytosis Slight; Monocytes # (A) 0.5 k/uL (0-1.0); Monocytes % (A) 6 %; Neutrophils # (A) 6.4 k/uL (1.3-7.7); Neutrophils % (A) 84 %; Platelet Count 215 k/uL (150-450); RBC 2.98 m/uL (3.80-5.40); WBC 7.6 k/uL (3.8-10.6)
[2020-08-08] MEDS: oxyCODONE-APAP 10-325MG 1 EACH TAB PO PRN ×3 (07:37→20:16)
[2020-08-08] MEDS: PANTOPRAZOLE 40 MG TABLET PO SCH (07:38)
[2020-08-08] MEDS: POTASSIUM CHLORIDE ER 20 MEQ TAB.ER PO SCH ×2 (07:38→20:16)
[2020-08-08] MEDS: CITALOPRAM HYDROBROMIDE 20 MG TAB PO SCH (07:38)
[2020-08-08] MEDS: predniSONE 10 MG TAB PO SCH (07:38)
[2020-08-08] MEDS: FERROUS SULFATE 325 MG TAB PO SCH ×2 (07:38→20:16)
[2020-08-08 07:41] LABS: ALT 23 U/L (4-34); AST 32 U/L (14-36); African American GFR (CKD) >90 (>60 ml/min/1.73 sqM); Albumin 2.5 g/dL (3.5-5.0); Albumin/Globulin Ratio 1.2; Alkaline Phosphatase 113 U/L (38-126); Anion Gap 4 mmol/L; Blood Urea Nitrogen 14 mg/dL (7-17); Carbon Dioxide 23 mmol/L (22-30); Chloride 107 mmol/L (98-107); Globulin 2.1 g/dL; Glucose 87 mg/dL (74-99); Non-African American GFR(CKD) 87 (>60 ml/min/1.73 sqM); Potassium 4.3 mmol/L (3.5-5.1); Sodium 134 mmol/L (137-145); Total Bilirubin 0.4 mg/dL (0.2-1.3); Total Protein 4.6 g/dL (6.3-8.2)
--- NOTE | 2020-08-08 12:04 | NM ---
EXAMINATION TYPE: NM bone scan whole body DATE OF EXAM: 08/08/2020 COMPARISON: CT chest 08/07/2020, CT chest 07/25/2020 HISTORY: Metastatic disease Delayed whole-body scanning was performed following the injection of 23.4 mCi Tc 99m MDP. Images acq uired 3 hours post injection. FINDINGS: Lytic bone lesion involving the mid mammogram on the right shows associated radiopharmaceutical uptak e, multiple foci are present within the ribs with increased uptake as well as the distal sternum. Jono e of the rib uptake could be due to underlying fractures although the upper ribs posteriorly shows an expansile appearance at the fifth ribs bilaterally, 6 posterior left rib, posterior right 10th rib, left scapula, inferior right scapula show lytic lesions with associated uptake, the right hemipelvis also shows abnormal uptake. Postop changes are noted within the hips and knees. Scoliotic curvature i s noted to the spine. Lytic lesion involving the left aspect of the 11th thoracic vertebral body, ant erior aspect of the eighth thoracic vertebral body shows uptake. Additional lytic lucencies are prese nt without definitive uptake. IMPRESSION: Consistent with metastatic disease.
--- NOTE | 2020-08-08 19:04 | P.PN ---
Subjective Progress Note Date: 08/08/20 Principal diagnosis: Metastatic Melanoma She is doing ok today, no acute events overnight Objective - Vital Signs Vital signs: Vital Signs Temp 98.5 F 08/08/20 17:45 Pulse 63 08/08/20 17:45 Resp 21 08/08/20 17:45 BP 100/62 08/08/20 17:45 Pulse Ox 95 08/08/20 17:45 Intake & Output 08/08/20 08/08/20 08/09/20 06:59 18:59 06:59 Intake Total 1590 Balance 1590 Intake: Intake, IV Titration 1040 Amount Sodium Chloride 0.9% 1, 1040 000 ml @ 130 mls/hr IV . Q7H42M KACY Rx#:[id number] Oral 550 Other: Voiding Method Bedside Commode Bedside Commode Diaper Diaper # Voids 3 # Bowel Movements 1 - Exam - Constitutional General appearance: cooperative, no acute distress - EENT Eyes: EOMI, PERRLA ENT: hard of hearing, NA/AT, normal oropharynx - Neck Neck: normal ROM - Respiratory Respiratory: left: rhonchi, bilateral: diminished (no increased effort) - Cardiovascular Rhythm: irregularly irregular - Gastrointestinal General gastrointestinal: soft, tenderness - Integumentary Integumentary: pale - Neurologic Neurologic: CNII-XII intact - Musculoskeletal Musculoskeletal: generalized weakness - Psychiatric Psychiatric: A&O x's 3, appropriate affect, intact judgment & insight - Labs CBC & Chem 7: 08/08/20 07:05 08/08/20 07:05 Labs: Abnormal Lab Results - Last 24 Hours (Table) 08/08/20 08/08/20 Range/Units 07:05 07:05 RBC 2.98 L (3.80-5.40) m/uL Hgb 9.0 L (11.4-16.0) gm/dL Hct 28.5 L (34.0-46.0) % RDW 18.0 H (11.5-15.5) % Lymphocytes # 0.6 L (1.0-4.8) k/uL Sodium 134 L (137-145) mmol/L Calcium 8.0 L (8.4-10.2) mg/dL Total Protein 4.6 L (6.3-8.2) g/dL Albumin 2.5 L (3.5-5.0) g/dL Microbiology - Last 24 Hours (Table) 08/06/20 07:49 Blood Culture - Preliminary Blood No Growth after 48 hours 08/06/20 08:02 Blood Culture - Preliminary Blood No Growth after 48 hours 08/06/20 15:31 Urine Culture - Final Urine,Clean Catch Assessment and Plan Plan: Assessment and Plan (1) Normocytic anemia Current Visit: Yes Status: Acute Code(s): D64.9 - ANEMIA, UNSPECIFIED SNOMED Code(s): 226706782 (2) Malignant melanoma of rectum Current Visit: Yes Status: Acute Code(s): C20 - MALIGNANT NEOPLASM OF RECTUM SNOMED Code(s): 609869276 (3) Lung nodules Current Visit: Yes Status: Acute Code(s): R91.8 - OTHER NONSPECIFIC ABNORMAL FINDING OF LUNG FIELD SNOMED Code(s): 342177396 Plan: CTA negative for PE Assessment and Recommendations: Newly Identified subcentimeter pulmonary nodules (numerous): - With known history of melanoma consideration of a metastatic process must be considered Normocytic Anemia: Acute Chronic - Hemoglobin improved to 8 today - DC - NSAIDS with known GI blood loss and pathologies - Parental Iron 3/3 at last admission Melanoma of the Rectal Skin: - Diagnosed in 2019, surgical resection, limited disease no residual disease - Continues to follow at [facility] for surveillance and last CT 05/2020 RANDI Multiple liver Lesions: - With newly found pulmonary nodules and new hypoechoic liver lesions Right up to 2.5cm, Left approx 1.5 per ultrasound - Status post Liver biopsy 07/30, consistent with metastatic melanoma Neoplastic related pain: - COntinue long acting and breakthrough in anticipation of discharge. Senna-s for narcotic induced constipation Plan: - PT/OT - Unable to self care at home, plan assistance at discharge - Patient has decided to continue with treatment here and not go to [place], will continue plan for treatment here with Dr. Acuna
[2020-08-08] MEDS: traZODone HCL 100 MG TAB PO SCH (20:16)
[2020-08-08] MEDS: atenoloL 25 MG TAB PO SCH (20:16)
[2020-08-08] MEDS: ALPRAZolam 1 MG TAB PO PRN (23:45)
[2020-08-09] MEDS: SODIUM CHLORIDE 0.9% 1,000 ML IV SCH ×2 (04:28→14:07)
[2020-08-09] MEDS: LEVOTHYROXINE 50 MCG TAB PO SCH (06:36)
[2020-08-09] MEDS: oxyCODONE-APAP 10-325MG 1 EACH TAB PO PRN ×3 (06:36→22:28)
[2020-08-09] MEDS: IPRATROPIUM-ALBUTEROL 3 ML NEB INHALATION SCH ×4 (07:07→20:25)
[2020-08-09] MEDS: FERROUS SULFATE 325 MG TAB PO SCH ×2 (09:44→20:13)
[2020-08-09] MEDS: SENNOSIDES-DOCUSATE SODIUM 1 EACH TAB PO SCH ×2 (09:44→20:13)
[2020-08-09] MEDS: PANTOPRAZOLE 40 MG TABLET PO SCH (09:44)
[2020-08-09] MEDS: CITALOPRAM HYDROBROMIDE 20 MG TAB PO SCH (09:44)
[2020-08-09] MEDS: POTASSIUM CHLORIDE ER 20 MEQ TAB.ER PO SCH ×2 (09:44→20:13)
[2020-08-09] MEDS: predniSONE 10 MG TAB PO SCH (09:45)
--- NOTE | 2020-08-09 10:19 | PN ---
PROGRESS NOTE DATE OF SERVICE: 08/08/2020 She appears to have metastatic melanoma throughout her bones in her chest into her ribs and her sacrum. Discussed with her the bone scan. She needs to go to a long term. She was not safe to go home to where she normally lives due to family issues. CARDIOVASCULAR: S1, S2. LUNGS: Clear. GI: Soft. HEMATOLOGY: Negative Homans. She is in severe pain. Pain medicines will have to be adjusted. We have to see if Dr. Acuna will treat her for metastatic melanoma throughout her bone. Today she is unable to get back to [place]. She requested to go to a long term, will have to discuss with possible chemo from the long term. ASSESSMENT: 1. Metastatic melanoma of rectum and diffusely looks like metastatic throughout her body. Possible treatment from Dr. Acuna. 2. Chronic pain syndrome. 3. Chronic obstructive pulmonary disease. Medications will have to be adjusted. Chronic obstructive pulmonary disease, treat with updrafts. Prognosis guarded. 4. Depression . Continue current treatment. 5. Anemia. History of chronic anemia, continue on iron pills. Prognosis guarded. MMODL / IJN: [id number] /
[2020-08-09 11:06] LABS: Basophils # (A) 0 X 10*3/uL (0.00-0.10); Basophils % (A) 0 %; Eosinophils # (A) 0.09 X 10*3/uL (0.04-0.35); Eosinophils % (A) 1.2 %; HCT 27.6 % (37.2-46.3); HGB 7.7 g/dL (12.0-15.0); Lymphocytes % (A) 7.7 %; MCH 27.9 pg (27.0-32.0); MCHC 27.9 g/dL (32.0-37.0); Mean Platelet Volume 9.9 fL (9.5-12.2); Monocytes # (A) 0.68 X 10*3/uL (0.20-1.00); Monocytes % (A) 8.7 %; Neutrophils # (A) 6.41 X 10*3/uL (1.80-7.70); Neutrophils % (A) 81.9 %; Platelet Count 213 X 10*3/uL (140-440); RBC 2.76 X 10*6/uL (4.10-5.20); RDW 18.2 % (11.5-14.5); WBC 7.82 X 10*3/uL (4.50-10.00)
[2020-08-09] MEDS ORDERED: KETOROLAC 15 MG/ML 1 ML VIAL IVP SCH (12:00)
[2020-08-09] MEDS ORDERED: ZOLEDRONIC ACID 4 MG in SODIUM CHLORIDE 0.9% 100 ML IV NR (13:45)
[2020-08-09 14:24] LABS: African American GFR (CKD) 100.5 (60.0-200.0); Albumin 2.9 g/dL (3.80-4.90); Albumin/Globulin Ratio 1.81 (1.60-3.17); Anion Gap 9.8 mmol/L (4.00-12.00); BUN/Creat Ratio 16.67 Ratio (12.00-20.00); Carbon Dioxide 20.2 mmol/L (21.6-31.8); Globulin 1.6 g/dL (1.6-3.3); Non-African American GFR(CKD) 86.7 (60.0-200.0); Potassium 4.3 mmol/L (3.5-5.5); Total Bilirubin 0.2 mg/dL (0.3-1.2); Total Protein 4.5 g/dL (6.2-8.2)
[2020-08-09] MEDS: KETOROLAC 15 MG/ML 1 ML VIAL IVP PRN (17:07)
--- NOTE | 2020-08-09 17:24 | P.CONS ---
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 She unfortunately has recently been diagnosed with widespread metastatic disease involving the liver, lung and bone metastasis. We are consult to discuss her chest wall discomfort, which is likely arising from her metastatic disease. The patient's oncologic history began in September 2019 when she developed rectal bleeding. She underwent excision of was thought to be a hemorrhoid and was found to be a mucosal melanoma involving the anus on October 18, 2019. She underwent further workup at the [facility], and no further treatment was recommended based on no evidence of residual disease. She did undergo repea t staging studies on May 23, [address] scan of the chest, abdomen and pelvis and MRI of the brain all of which were negative for metastatic disease. Over the past 7-8 weeks, the patient has developed significant complaints. She reports that she initially developed a dull discomfort along the anterior chest wall which could radiate along the left ribs. This pain has become progr essively worse over the past few weeks. She has been hospitalized several times, and on July 17, 2020 a CTA of the chest was performed secondary to this chest pain. This revealed multiple new subcentimeter pulmonary nodules suspicious for metastatic disease. She subsequently had an abdominal ultrasound performed revealing hypoechoic lesions involving the liver. She underwent an ultrasound-guided biopsy on July 31, 2020 of the liver with pathology showing malignant melanoma. The patient was unfortunately again admitted to the hospital secondary to increased dyspnea and chest wall pain. A bone scan was performed and reveals multiple abnormal foci of uptake involving the bilateral rib cage, thoracic spine and sternum. She states that she had been taking Percocet with only partial benefit. She states the pain is relatively constant and can be up to 8 out of 10 at times. She also has a difficult social situation, and does not feel she can care for herself at home any longer. Review of Systems Constitutional: Denies chills, Denies fever Eyes: bilateral blurred vision (new complaint) Ears, nose, mouth and throat: Denies headache Cardiovascular: Reports chest pain, Reports dyspnea on exertion, Denies lightheadedness Respiratory: Reports pain on inspiration, Denies cough Gastrointestinal: Denies abdominal pain, Denies BRBPR Genitourinary: Denies flank pain Integumentary: Denies rash Neurological: Denies aphasia, Denies ataxia, Denies confusion, Denies convulsions Psychiatric: Reports anxiety, Denies depression Past Medical History Past Medical History: Atrial Fibrillation, Atrial Flutter, GERD/Reflux, Hyperlipidemia, Mitral Valve Prolapse (MVP), Rheumatoid Arthritis (RA), Thyroid Disorder Additional Past Medical History / Comment(s): OTHER HX: 03/06/14, 03/30/14, 07/03/14, 07/29/14 with CDIFF colitis, HYPOTHYROID, MVP, urinary incontinence, PROLAPSED MITRAL VALVE- NO PROBLEMS FOR 30 YRS.anemia -requiring blood transfusion hypotension History of Any Multi-Drug Resistant Organisms: C-DIFF Year Discovered:: 2016 MDRO Source:: Stool Past Surgical History: Adenoidectomy, Cholecystectomy, Hysterectomy, Joint Replacement, Orthopedic Surgery, Tonsillectomy Additional Past Surgical History / Comment(s): 02/18/16 total R hip arthroplasty. Other surgical HX: BILATERAL KNEE REPLACEMENT (2003-RIGHT & 2005 - LEFT); LOWER LUMBAR LAMINECTOMYL4-L5 (2007); LEFT HIP REPLACEMENT (2012); RIGHT SHOULDER REPLACEMENT (2008), left total knee arthroplasty revision. Bilateral cataracts with lens implants. FECAL TRASPLANT TX FOR C-DIFF three times.cataracts-lens implants hemmoroid removed Past Anesthesia/Blood Transfusion Reactions: No Reported Reaction Additional Past Anesthesia/Blood Transfusion Reaction / Comm: blood transfusion in past no reactions Past Psychological History: Anxiety, Depression Additional Psychological History / Comment(s): Pt resides in her own home. Her nephew who is very ill stays with pt. She uses a walker to ambulate. She has a nebulizer, She is able to drive. Smoking Status: Current every day smoker Past Alcohol Use History: None Reported Additional Past Alcohol Use History / Comment(s): Patient has smoked since 1954- 5 cig per day. No alcohol use or abuse. Past Drug Use History: None Reported - Past Family History Mother Family Medical History: Cancer Additional Family Medical History / Comment(s): Mother at age 60 with history of emphysema and lung cancer. Father Family Medical History: CVA/TIA Additional Family Medical History / Comment(s): Father at age 74 with problems with his larynx. Sister(s) Family Medical History: Unable to Obtain Daughter(s) Family Medical History: COPD, Myocardial Infarction (MA) Additional Family Medical History / Comment(s): Mother at age 60 yrs of emphysema/lung CA Son(s) Family Medical History: Myocardial Infarction (MA) Additional Family Medical History / Comment(s): Father at age 74yrs with "CVA of his larynx" Medications and Allergies Home Medications Medication Instructions Recorded Confirmed Type oxyCODONE-APAP 10-325MG [Percocet 1 tab PO BID 06/29/19 08/06/20 History 10-325 mg] ALPRAZolam [Xanax] 2 mg PO Q8H PRN #12 tab 08/02/20 08/06/20 Rx Citalopram Hydrobromide [CeleXA] 40 mg PO DAILY 30 Days #30 tab 08/02/20 08/06/20 Rx Levothyroxine Sodium [Synthroid] 50 mcg PO DAILY 30 Days #30 tab 08/02/20 08/06/20 Rx Pantoprazole [Protonix] 40 mg PO AC-BRKFST 30 Days #30 08/02/20 08/06/20 Rx tablet. Potassium Chloride ER [K-Dur 20] 20 meq PO BID 30 Days #60 tab 08/02/20 08/06/20 Rx atenoloL [Tenormin] 25 mg PO HS 30 Days #30 tab 08/02/20 08/06/20 Rx traZODone HCL [Desyrel] 200 mg PO HS 30 Days #60 tab 08/02/20 08/06/20 Rx Ferrous Sulfate [Iron] 325 mg PO BID 08/03/20 08/06/20 History Sennosides-Docusate Sodium 1 tab PO BID 08/03/20 08/06/20 History [Senokot-S] predniSONE See Taper PO DAILY 08/03/20 08/06/20 History Allergies Allergy/AdvReac Type Severity Reaction Status Date / Time adhesive tape Allergy Rash/Hives Verified 08/06/20 13:21 Influenza Virus Vaccines Allergy "MAKES HER Verified 08/06/20 13:21 FEEL SICK" latex Allergy Rash/Hives Verified 08/06/20 13:21 Sulfa (Sulfonamide Allergy Rash/Hives Verified 08/06/20 13:21 Antibiotics) amoxicillin trihydrate AdvReac Diarrhea Verified 08/06/20 13:21 [From Augmentin] ciprofloxacin [From Cipro] AdvReac Unknown Verified 08/06/20 13:21 metronidazole [From Flagyl] AdvReac Unknown Verified 08/06/20 13:21 potassium clavulanate AdvReac Diarrhea Verified 08/06/20 13:21 [From Augmentin] quinidine AdvReac BLOOD CLOTS Verified 08/06/20 13:21 Physical Exam Vitals: Vital Signs Temp Pulse Pulse Resp BP Pulse Ox 08/09/20 16:02 60 16 08/09/20 15:52 59 L 16 08/09/20 14:00 98.4 F 66 16 95/50 95 08/09/20 11:19 58 L 16 08/09/20 11:09 60 16 08/09/20 08:45 16 08/09/20 08:00 98.1 F 58 L 16 96/59 95 08/09/20 07:17 55 L 16 08/09/20 07:07 52 L 16 95 08/09/20 05:35 98.0 F 61 19 95/51 95 08/09/20 01:21 97.9 F 56 L 18 97/57 96 08/08/20 21:29 98.1 F 62 19 87/50 96 08/08/20 20:36 70 08/08/20 20:26 72 08/08/20 17:45 98.5 F 63 21 100/62 95 Intake and Output 08/09/20 08/09/20 08/09/20 06:59 14:59 22:59 Other: Voiding Method Bedside Commode Diaper # Voids 3 - Constitutional General appearance: no acute distress - EENT Eyes: EOMI, PERRLA ENT: hearing grossly normal - Neck Neck: no lymphadenopathy - Respiratory Respiratory: bilateral: CTA - Cardiovascular Rhythm: regular - Gastrointestinal General gastrointestinal: no distended, soft - Integumentary Integumentary: no calor - Neurologic Neurologic: CNII-XII intact - Musculoskeletal Musculoskeletal: strength equal bilaterally - Psychiatric Psychiatric: A&O x's 3, appropriate affect Results CBC & Chem 7: 08/09/20 06:53 08/09/20 06:53 Labs: Abnormal Lab Results - Last 24 Hours (Table) 08/09/20 08/09/20 Range/Units 06:53 06:53 RBC 2.76 L (4.10-5.20) X 10*6/uL Hgb 7.7 L (12.0-15.0) g/dL Hct 27.6 L (37.2-46.3) % MCV 100.0 H (80.0-97.0) fL MCHC 27.9 L (32.0-37.0) g/dL RDW 18.2 H (11.5-14.5) % Lymphocytes # 0.60 L (0.90-5.00) X 10*3/uL Carbon Dioxide 20.2 L (21.6-31.8) mmol/L Calcium 8.0 L (8.7-10.3) mg/dL Total Bilirubin 0.2 L (0.3-1.2) mg/dL Total Protein 4.5 L (6.2-8.2) g/dL Albumin 2.90 L (3.80-4.90) g/dL Microbiology - Last 24 Hours (Table) 08/06/20 07:49 Blood Culture - Preliminary Blood No Growth after 72 hours 08/06/20 08:02 Blood Culture - Preliminary Blood No Growth after [address] scan - chest: report reviewed, image reviewed Assessment and Plan Assessment: The patient is a 80-year-old female who 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 She unfortunately has recently been diagnosed with widespread metastatic disease involving the liver, lung and bone metastasis. We are consult to discuss her chest wall discomfort, which is likely arising from her metastatic disease. Plan: 1. Bone metastases: As detailed above, the patient has multiple foci of bone metastasis involving the sternum and rib cage. The majority of her pain is along the left anterior chest wall and wraps around to the back. I discussed with the patient that I would recommend a palliative course of radiation to this area. I explained that she would first undergo CT simulation for treatment planning. The patient will undergo CT simulation Wednesday, and we will look to start her radiotherapy shortly after. Please continue to optimize her pain control regimen. I discussed with the patient that a typical course of radiotherapy for this problem would require at the most 5 fractions of treatment. I discussed that it may take some time for the palliative effective radiotherapy to start, and at the patient should work to optimize pain control. 2. Metastatic melanoma: The patient has met with medical oncology, and thir plan is that if she can optimize her pain control and improve her function at rehabilitation; she will likely be a candidate for systemic therapy (such as immunotherapy). The patient understands that radiotherapy is only a focal treatment, and that her disease is currently widespread. The patient did mention some recent blurred vision, and therefore I would recommend she undergo MRI of the brain to rule out involvement. 3. Placement: As detailed above, the patient will need at least a short stay in subacute rehabilitation as she is currently having difficulty caring for herself considering an unstable social situation and her difficulty with pain control. Time with Patient: Greater than 30
--- NOTE | 2020-08-09 19:41 | P.PN ---
Subjective Progress Note Date: 08/09/20 Principal diagnosis: Metastatic Melanoma Pain in area of metastatic disease ribs, Radiation oncology consult for palliaitive radiation. Objective - Vital Signs Vital signs: Vital Signs Temp 98.1 F 08/09/20 08:00 Pulse 58 L 08/09/20 08:00 Resp 16 08/09/20 08:00 BP 96/59 08/09/20 08:00 Pulse Ox 95 08/09/20 08:00 Intake & Output 08/08/20 08/09/20 08/09/20 18:59 06:59 18:59 Intake Total 1590 Balance 1590 Intake: Intake, IV Titration 1040 Amount Sodium Chloride 0.9% 1, 1040 000 ml @ 130 mls/hr IV . Q7H42M [facility] Rx#:[id number] Oral 550 Other: Voiding Method Bedside Commode Bedside Commode Diaper Diaper # Voids 3 3 # Bowel Movements 1 - Exam - Constitutional General appearance: cooperative, no acute distress - EENT Eyes: EOMI, PERRLA ENT: hard of hearing, NA/AT, normal oropharynx - Neck Neck: normal ROM - Respiratory Respiratory: left: rhonchi, bilateral: diminished (no increased effort) - Cardiovascular Rhythm: irregularly irregular - Gastrointestinal General gastrointestinal: soft, tenderness - Integumentary Integumentary: pale - Neurologic Neurologic: CNII-XII intact - Musculoskeletal Musculoskeletal: generalized weakness - Psychiatric Psychiatric: A&O x's 3, appropriate affect, intact judgment & insight - Labs CBC & Chem 7: 08/09/20 06:53 08/09/20 06:53 Labs: Microbiology - Last 24 Hours (Table) 08/06/20 07:49 Blood Culture - Preliminary Blood No Growth after 72 hours 08/06/20 08:02 Blood Culture - Preliminary Blood No Growth after 72 hours Assessment and Plan Plan: Assessment and Plan (1) Normocytic anemia Current Visit: Yes Status: Acute Code(s): D64.9 - ANEMIA, UNSPECIFIED SNO MED Code(s): 165846991 (2) Malignant melanoma of rectum Current Visit: Yes Status: Acute Code(s): C20 - MALIGNANT NEOPLASM OF RECTUM SNOMED Code(s): 612228176 (3) Lung nodules Current Visit: Yes Status: Acute Code(s): R91.8 - OTHER NONSPECIFIC ABNORMAL FINDING OF LUNG FIELD SNOMED Code(s): 082732499 Plan: CTA negative for PE Assessment and Recommendations: Newly Identified subcentimeter pulmonary nodules (numerous): - With known history of melanoma consideration of a metastatic process must be considered Normocytic Anemia: Acute Chronic - Hemoglobin improved to 8 today - DC - NSAIDS with known GI blood loss and pathologies - Parental Iron 3/3 at last admission Melanoma of the Rectal Skin: - Diagnosed in 2019, surgical resection, limited disease no residual disease - Continues to follow at [facility] for surveillance and last CT 05/2020 RANDI Multiple liver Lesions: - With newly found pulmonary nodules and new hypoechoic liver lesions Right up to 2.5cm, Left approx 1.5 per ultrasound - Status post Liver biopsy 07/30, consistent with metastatic melanoma Macrocytic Anemia: - Worsening - Anemia work-up - Likely secondary to progressive disease with bone/bone marrow involvement Neoplastic related pain: - Continue long acting and breakthrough in anticipation of discharge. Senna-s for narcotic induced constipation - Increased fentanyl 50mcg Plan: - PT/OT - Unable to self care at home, plan assistance at discharge - Patient has decided to continue with treatment here and not go to [place], will continue plan for treatment here with Dr. Acuna - Radiation oncology to evaluate palliaitive radiation pain - Bone scan consistent with bone mets - Biphos ordered Physician Attest: I have completed full history and physical developed above impression and plan, agree with dictation, dictated as a scribe
[2020-08-09] MEDS: atenoloL 25 MG TAB PO SCH ×2 (20:13→20:33)
[2020-08-09] MEDS: traZODone HCL 100 MG TAB PO SCH (20:13)
[2020-08-10] MEDS: oxyCODONE-APAP 10-325MG 1 EACH TAB PO PRN ×2 (05:14→19:07)
[2020-08-10] MEDS: LEVOTHYROXINE 50 MCG TAB PO SCH (06:18)
[2020-08-10 08:30] LABS: % Iron Saturation 6.16 (12.00-45.00); Ferritin 107.5 ng/mL (10.0-291.0)
[2020-08-10] MEDS: POTASSIUM CHLORIDE ER 20 MEQ TAB.ER PO SCH ×2 (08:37→19:57)
[2020-08-10] MEDS: predniSONE 10 MG TAB PO SCH (08:37)
[2020-08-10] MEDS: PANTOPRAZOLE 40 MG TABLET PO SCH (08:37)
[2020-08-10] MEDS: FERROUS SULFATE 325 MG TAB PO SCH ×2 (08:37→19:58)
[2020-08-10] MEDS: CITALOPRAM HYDROBROMIDE 20 MG TAB PO SCH (08:37)
[2020-08-10] MEDS: SENNOSIDES-DOCUSATE SODIUM 1 EACH TAB PO SCH ×2 (08:37→19:58)
[2020-08-10] MEDS: KETOROLAC 15 MG/ML 1 ML VIAL IVP PRN (08:52)
[2020-08-10] MEDS ORDERED: bisacodyL 5 MG TABLET.DR PO PRN (08:54)
[2020-08-10] MEDS: IPRATROPIUM-ALBUTEROL 3 ML NEB INHALATION SCH ×4 (09:36→19:32)
[2020-08-10 11:45] LABS: Basophils # (A) 0.01 X 10*3/uL (0.00-0.10); Basophils % (A) 0.1 %; Eosinophils % (A) 1.2 %; HCT 27.1 % (37.2-46.3); HGB 7.8 g/dL (12.0-15.0); Lymphocytes # (A) 0.63 X 10*3/uL (0.90-5.00); Lymphocytes % (A) 7.6 %; MCH 28.4 pg (27.0-32.0); MCHC 28.8 g/dL (32.0-37.0); MCV 98.5 fL (80.0-97.0); Mean Platelet Volume 9.6 fL (9.5-12.2); Monocytes # (A) 0.75 X 10*3/uL (0.20-1.00); Monocytes % (A) 9.1 %; Neutrophils # (A) 6.76 X 10*3/uL (1.80-7.70); Neutrophils % (A) 81.6 %; Platelet Count 238 X 10*3/uL (140-440); RBC 2.75 X 10*6/uL (4.10-5.20); RDW 17.8 % (11.5-14.5); WBC 8.28 X 10*3/uL (4.50-10.00)
[2020-08-10 12:02] LABS: African American GFR (CKD) 100.5 (60.0-200.0); Albumin 2.9 g/dL (3.80-4.90); Albumin/Globulin Ratio 2.42 (1.60-3.17); Anion Gap 7.4 mmol/L (4.00-12.00); Carbon Dioxide 24.6 mmol/L (21.6-31.8); Globulin 1.2 g/dL (1.6-3.3); Magnesium 1.6 mg/dL (1.5-2.4); Non-African American GFR(CKD) 86.7 (60.0-200.0); Potassium 4.6 mmol/L (3.5-5.5); Total Bilirubin 0.2 mg/dL (0.2-1.2); Total Protein 4.1 g/dL (6.2-8.2)
[2020-08-10] MEDS ORDERED: Magnesium Replacement Protocol 1 EACH MISC MISCELLANE PRN (12:37)
--- NOTE | 2020-08-10 12:51 | PN ---
PROGRESS NOTE A 80-year-old white female with metastatic melanoma throughout her body. She is having a lot of chest pain, as she has metastatic into her ribs. She is having a lot of pain. She is asking in increase for the pain medications. Percocet only helps a little bit. We ordered some Dilaudid IV and took her off Duragesic patch because she does not like it. Cardiovascular S1-S2. Lungs clear. GI soft. Hematology negative Homans. She was seen by radiation doctor. She has bone metastases involving the sternum and the rib cage. They recommended a palliative course of radiation to this area. She is going to get a CT simulation Wednesday morning and then do radiotherapy after to optimize her pain relief. She has metastatic melanoma. Hopefully they can find some immunotherapy that she will be a candidate for. Wait for Dr. Acuna's recommendations for this. Prognosis is very guarded. MMODL / IJN: [id number] /
[2020-08-10] MEDS: MAGNESIUM SULFATE-D5W PMX 1 GM in DEXTROSE/WATER 1 100ML.BAG IVPB SCH ×2 (14:02→15:31)
[2020-08-10] MEDS: HYDROmorphone 1 MG/ML 1 ML SYRINGE IVP PRN ×3 (14:02→22:08)
[2020-08-10] MEDS: atenoloL 25 MG TAB PO SCH (19:58)
[2020-08-10] MEDS: traZODone HCL 100 MG TAB PO SCH (19:59)
[2020-08-10] MEDS: ALPRAZolam 1 MG TAB PO PRN (22:08)
[2020-08-11] MEDS: HYDROmorphone 1 MG/ML 1 ML SYRINGE IVP PRN ×5 (03:01→18:11)
[2020-08-11] MEDS: LEVOTHYROXINE 50 MCG TAB PO SCH (05:58)
[2020-08-11] MEDS: SENNOSIDES-DOCUSATE SODIUM 1 EACH TAB PO SCH ×2 (07:41→19:49)
[2020-08-11] MEDS: CITALOPRAM HYDROBROMIDE 20 MG TAB PO SCH (07:41)
[2020-08-11] MEDS: POTASSIUM CHLORIDE ER 20 MEQ TAB.ER PO SCH ×2 (07:41→19:49)
[2020-08-11] MEDS: predniSONE 10 MG TAB PO SCH (07:41)
[2020-08-11] MEDS: FERROUS SULFATE 325 MG TAB PO SCH ×2 (07:41→19:50)
[2020-08-11] MEDS: PANTOPRAZOLE 40 MG TABLET PO SCH (07:41)
[2020-08-11] MEDS: IPRATROPIUM-ALBUTEROL 3 ML NEB INHALATION SCH ×4 (09:25→20:33)
[2020-08-11] MEDS: KETOROLAC 15 MG/ML 1 ML VIAL IVP PRN (13:27)
[2020-08-11] MEDS: atenoloL 25 MG TAB PO SCH (19:47)
[2020-08-11] MEDS: traZODone HCL 100 MG TAB PO SCH (19:50)
[2020-08-11] MEDS: oxyCODONE-APAP 10-325MG 1 EACH TAB PO PRN (19:50)
[2020-08-11] MEDS: ALPRAZolam 1 MG TAB PO PRN (21:09)
[2020-08-12] MEDS: HYDROmorphone 1 MG/ML 1 ML SYRINGE IVP PRN (05:09)
[2020-08-12] MEDS: LEVOTHYROXINE 50 MCG TAB PO SCH (05:09)
[2020-08-12] MEDS: oxyCODONE-APAP 10-325MG 1 EACH TAB PO PRN ×2 (07:55→16:45)
[2020-08-12] MEDS: CITALOPRAM HYDROBROMIDE 20 MG TAB PO SCH (07:56)
[2020-08-12] MEDS: predniSONE 10 MG TAB PO SCH (07:56)
[2020-08-12] MEDS: POTASSIUM CHLORIDE ER 20 MEQ TAB.ER PO SCH ×2 (07:56→19:37)
[2020-08-12] MEDS: SENNOSIDES-DOCUSATE SODIUM 1 EACH TAB PO SCH ×2 (07:56→19:37)
[2020-08-12] MEDS: PANTOPRAZOLE 40 MG TABLET PO SCH (07:56)
[2020-08-12] MEDS: FERROUS SULFATE 325 MG TAB PO SCH ×2 (07:57→19:37)
[2020-08-12] MEDS: IPRATROPIUM-ALBUTEROL 3 ML NEB INHALATION SCH ×4 (08:32→21:26)
[2020-08-12 11:05] LABS: Basophils # (A) 0.01 X 10*3/uL (0.00-0.10); Basophils % (A) 0.1 %; Eosinophils # (A) 0.09 X 10*3/uL (0.04-0.35); Eosinophils % (A) 1.2 %; Lymphocytes # (A) 0.91 X 10*3/uL (0.90-5.00); Lymphocytes % (A) 12.3 %; MCH 28.3 pg (27.0-32.0); MCHC 28.1 g/dL (32.0-37.0); MCV 100.6 fL (80.0-97.0); Mean Platelet Volume 9.5 fL (9.5-12.2); Monocytes # (A) 0.74 X 10*3/uL (0.20-1.00); Neutrophils # (A) 5.55 X 10*3/uL (1.80-7.70); Neutrophils % (A) 75.5 %; Platelet Count 254 X 10*3/uL (140-440); RBC 3.18 X 10*6/uL (4.10-5.20); RDW 17.8 % (11.5-14.5); WBC 7.37 X 10*3/uL (4.50-10.00)
[2020-08-12 11:41] LABS: African American GFR (CKD) 95.5 (60.0-200.0); Albumin 3.1 g/dL (3.80-4.90); Albumin/Globulin Ratio 2.21 (1.60-3.17); Calcium 8.2 mg/dL (8.7-10.3); Globulin 1.4 g/dL (1.6-3.3); Non-African American GFR(CKD) 82.4 (60.0-200.0); Potassium 5.2 mmol/L (3.5-5.5); Total Bilirubin 0.2 mg/dL (0.2-1.2); Total Protein 4.5 g/dL (6.2-8.2)
[2020-08-12] MEDS ORDERED: KETOROLAC 15 MG/ML 1 ML VIAL IVP STA (12:39)
[2020-08-12] MEDS: MELOXICAM 7.5 MG TAB PO SCH (15:18)
[2020-08-12] MEDS ORDERED: MAGNESIUM HYDROXIDE 2,400 MG/10 ML CUP PO PRN (17:44)
--- NOTE | 2020-08-12 17:51 | P.PN ---
Subjective Progress Note Date: 08/12/20 Principal diagnosis: COPD exacerbation, pain secondary to melanoma in follow-up today patient is still complaining of hip pain, consistently rates pain 8 or 9 out of 10, she does report that she had some relief with Toradol. Patient is tolerating oral intake, she has been simulated to begin radiation. She has no other acute complaints at this time Objective - Vital Signs Vital signs: Vital Signs Temp 99.0 F 08/12/20 14:00 Pulse 74 08/12/20 14:00 Resp 18 08/12/20 14:00 BP 108/62 08/12/20 14:00 Pulse Ox 93 L 08/12/20 14:00 Intake & Output 08/11/20 08/12/20 08/12/20 18:59 06:59 18:59 Output Total 1 Balance -1 Output: Urine 1 Other: Voiding Method Bedside Commode Diaper # Voids 2 600 3 - Constitutional General appearance: Present: average body habitus, cooperative, no acute distress - EENT Eyes: Present: anicteric sclerae, EOMI ENT: Present: hearing grossly normal - Respiratory Respiratory: bilateral: CTA, diminished - Cardiovascular Heart sounds: normal: S1, S2 - Gastrointestinal General gastrointestinal: Present: normal bowel sounds, soft - Integumentary Integumentary: Present: pale - Neurologic Neurologic: Present: CNII-XII intact - Musculoskeletal Musculoskeletal: Present: generalized weakness - Psychiatric Psychiatric: Present: A&O x's 3, appropriate affect, intact judgment & insight - Labs CBC & Chem 7: 08/12/20 07:18 08/12/20 07:18 Labs: Abnormal Lab Results - Last 24 Hours (Table) 08/12/20 08/12/20 Range/Units 07:18 07:18 RBC 3.18 L (4.10-5.20) X 10*6/uL Hgb 9.0 L (12.0-15.0) g/dL Hct 32.0 L (37.2-46.3) % MCV 100.6 H (80.0-97.0) fL MCHC 28.1 L (32.0-37.0) g/dL RDW 17.8 H (11.5-14.5) % Immature Gran # 0.07 H (0.00-0.04) X 10*3/uL Calcium 8.2 L (8.7-10.3) mg/dL Alkaline Phosphatase 153 H (41-126) U/L Total Protein 4.5 L (6.2-8.2) g/dL Albumin 3.10 L (3.80-4.90) g/dL Globulin 1.4 L (1.6-3.3) g/dL Microbiology - Last 24 Hours (Table) 08/06/20 07:49 Blood Culture - Final Blood No Growth after 144 hours 08/06/20 08:02 Blood Culture - Final Blood No Growth after 144 hours Assessment and Plan (1) Acute exacerbation of chronic obstructive pulmonary disease Narrative/Plan: Care per Primary team Current Visit: Yes Status: Acute Priority: High Code(s): J44.1 - CHRONIC OBSTRUCTIVE PULMONARY DISEASE W (ACUTE) EXACERBATION SNOMED Code(s): 182212851 (2) Cancer related pain Narrative/Plan: reviewed the case with the RN caring for patient. Also discussed pain with the patient. She states that she did have some relief of pain with use of Toradol. 1 time dose was given for acute pain, daily dose of Mobic ordered for inflammatory pain secondary to bone metastases. Patient is very willing to work with us in getting her pain under control. Radiation will begin for painful bone metastases. Continue fentanyl and Percocet for now. Daily medications for prevention of narcotic induced constipation, when necessary milk of magnesia. Goal is for soft easily passable bowel movement every 1-3 days. Current Visit: Yes Status: Acute Priority: High Code(s): G89.3 - NEOPLASM RELATED PAIN (ACUTE) (CHRONIC) SNOMED Code(s): 63706837038593 (3) Metastatic disease Current Visit: Yes Status: Acute Priority: High Code(s): C79.9 - SECONDARY MALIGNANT NEOPLASM OF UNSPECIFIED SITE SNOMED Code(s): 676618023 (4) Failure to thrive syndrome, adult Narrative/Plan: patient has a lot of social issues including homelessness. Patient is working with son as well as Case Management and [employer] Current Visit: Yes Status: Acute Priority: High Code(s): R62.7 - ADULT FAILURE TO THRIVE SNOMED Code(s): 352495762 (5) Malignant melanoma of rectum Narrative/Plan: Once patient's current condition is stabilized and her social situation is figured out, then we can discuss possibility of systemic treatment Current Visit: No Status: Acute Code(s): C20 - MALIGNANT NEOPLASM OF RECTUM SNOMED Code(s): 290784037 (6) Iron deficiency anemia Narrative/Plan: Iron studies do show a low iron saturation with ferritin at 104. 2 doses of parenteral iron have been ordered Current Visit: Yes Status: Chronic Priority: Medium Code(s): D50.9 - IRON DEFICIENCY ANEMIA, UNSPECIFIED SNOMED Code(s): 57425918
--- NOTE | 2020-08-12 18:05 | PN ---
PROGRESS NOTE This patient's vital signs are stable today. Temperature is 99, pulse 74, respiratory rate 16 to 18, blood pressure 108/62. She is saturating 93% on room air. She was supposed to get hooked up with Dr. Acuna for possible immunotherapy. She is going to get CT angiography for possible placement of radiation for passive radiation to the left chest, ribs. Vital signs appear to be stable. She is giving appropriate answers. Cardiovascular: S1, S2. Abdomen is soft. Integument: Tenderness to palpation of the left anterior ribs. ASSESSMENT: 1. Normocytic anemia. 2. Malignant melanoma of the rectum. 3. Metastatic lung nodules. 4. Multiple pulmonary nodules suspected to be melanoma. Anemia is progressive, likely secondary to progressive disease in the bone marrow. Status post liver biopsy with metastatic melanoma. Continue pain medication. Oncology increased her fentanyl patch; Radiation/Oncology due to alleviate palliative radiation pain. Bone scan consistent with bone metastases. Prognosis extremely guarded. MMODL / IJN: [id number] /
[2020-08-12] MEDS: SODIUM FERRIC GLUCONAT-SUCROSE 125 MG in SODIUM CHLORIDE 0.9% 100 ML IVPB SCH (18:29)
[2020-08-12] MEDS: atenoloL 25 MG TAB PO SCH (19:35)
[2020-08-12] MEDS: traZODone HCL 100 MG TAB PO SCH (19:36)
[2020-08-12] MEDS: ALPRAZolam 1 MG TAB PO PRN (21:38)
[2020-08-13] MEDS: oxyCODONE-APAP 10-325MG 1 EACH TAB PO PRN ×2 (00:20→20:44)
[2020-08-13] MEDS: LEVOTHYROXINE 50 MCG TAB PO SCH (05:01)
[2020-08-13] MEDS: HYDROmorphone 1 MG/ML 1 ML SYRINGE IVP PRN ×3 (05:02→16:08)
[2020-08-13] MEDS: IPRATROPIUM-ALBUTEROL 3 ML NEB INHALATION SCH ×4 (07:59→21:23)
[2020-08-13] MEDS: FERROUS SULFATE 325 MG TAB PO SCH ×2 (08:23→20:45)
[2020-08-13] MEDS: predniSONE 10 MG TAB PO SCH (08:23)
[2020-08-13] MEDS: PANTOPRAZOLE 40 MG TABLET PO SCH (08:23)
[2020-08-13] MEDS: SENNOSIDES-DOCUSATE SODIUM 1 EACH TAB PO SCH ×2 (08:23→20:45)
[2020-08-13] MEDS: POTASSIUM CHLORIDE ER 20 MEQ TAB.ER PO SCH ×2 (08:23→20:44)
[2020-08-13] MEDS: MELOXICAM 7.5 MG TAB PO SCH (08:23)
[2020-08-13] MEDS: CITALOPRAM HYDROBROMIDE 20 MG TAB PO SCH (08:23)
[2020-08-13] MEDS: SODIUM FERRIC GLUCONAT-SUCROSE 125 MG in SODIUM CHLORIDE 0.9% 100 ML IVPB SCH (08:23)
--- NOTE | 2020-08-13 08:37 | P.PN ---
Subjective Progress Note Date: 08/12/20 Principal diagnosis: metastatic melanoma - bone pain The patient was evaluated around 8:30 AM on 08/12/20. The patient unfortunately appear to bit more uncomfortable compared to the previous evaluation on Wednesday, however she did have recent transportation to the department. The pain is still principally within the anterior chest and radiates around the ribs, posteriorly on the left. She states that she still does not have good control of the pain at this time. The only thing that relieves the pain effectively is not moving. Objective - Vital Signs Vital signs: Vital Signs Temp 97.8 F 08/13/20 07:53 Pulse 65 08/13/20 08:08 Resp 16 08/13/20 07:53 BP 106/60 08/13/20 07:53 Pulse Ox 91 L 08/13/20 07:53 Intake & Output 08/12/20 08/13/20 08/13/20 18:59 06:59 18:59 Other: Voiding Method Bedside Commode Diaper # Voids 3 1 - Constitutional General appearance: Present: mild distress - EENT Eyes: Present: EOMI, PERRLA ENT: Present: hearing grossly normal - Neck Neck: Absent: lymphadenopathy - Respiratory Respiratory: bilateral: CTA - Cardiovascular Rhythm: regular - Gastrointestinal General gastrointestinal: Present: soft. Absent: distended - Integumentary Integumentary: Absent: calor, cellulitis - Neurologic Neurologic: Present: CNII-XII intact - Musculoskeletal Musculoskeletal: Present: strength equal bilaterally - Psychiatric Psychiatric: Present: appropriate affect - Labs CBC & Chem 7: 08/12/20 07:18 08/12/20 07:18 Labs: Abnormal Lab Results - Last 24 Hours (Table) 08/12/20 08/12/20 Range/Units 07:18 07:18 RBC 3.18 L (4.10-5.20) X 10*6/uL Hgb 9.0 L (12.0-15.0) g/dL Hct 32.0 L (37.2-46.3) % MCV 100.6 H (80.0-97.0) fL MCHC 28.1 L (32.0-37.0) g/dL RDW 17.8 H (11.5-14.5) % Immature Gran # 0.07 H (0.00-0.04) X 10*3/uL Calcium 8.2 L (8.7-10.3) mg/dL Alkaline Phosphatase 153 H (41-126) U/L Total Protein 4.5 L (6.2-8.2) g/dL Albumin 3.10 L (3.80-4.90) g/dL Globulin 1.4 L (1.6-3.3) g/dL Microbiology - Last 24 Hours (Table) 08/06/20 07:49 Blood Culture - Final Blood No Growth after 144 hours 08/06/20 08:02 Blood Culture - Final Blood No Growth after 144 hours Assessment and Plan Assessment: 80-year-old female with a history of metastatic mucosal melanoma now with wide spread disease involving the lung, liver and progressive bone metastasis. She presents due to intractable pain. Plan: 1. Bone metastases: The patient underwent CT simulation this morning. We will address the disease both within the sternum and ribs, as well as a midthoracic l esion within the spine. I discussed with the patient that we will look to initiate her treatment on 08/13/20, and I again explained that the palliative benefit of radiotherapy can take 1-2 weeks to be fully realized. We will therefore continue to optimize her pain control while she is hospitalized. 2. Metastatic melanoma: Patient may ultimately be a candidate for immunotherapy, but she will need to show clinical improvement in her performance status likely after a stay in [facility]. She also has some social issues that are being worked on. I will also recommend MRI of the brain to rule out invo lvement. Time with Patient: Less than 30
[2020-08-13 09:50] LABS: Basophils # (A) 0.01 X 10*3/uL (0.00-0.10); Basophils % (A) 0.1 %; Eosinophils # (A) 0.06 X 10*3/uL (0.04-0.35); Eosinophils % (A) 0.8 %; HCT 29.6 % (37.2-46.3); HGB 8.5 g/dL (12.0-15.0); Lymphocytes # (A) 0.74 X 10*3/uL (0.90-5.00); Lymphocytes % (A) 10.1 %; MCH 28.4 pg (27.0-32.0); MCHC 28.7 g/dL (32.0-37.0); Mean Platelet Volume 9.2 fL (9.5-12.2); Monocytes # (A) 0.59 X 10*3/uL (0.20-1.00); Neutrophils # (A) 5.91 X 10*3/uL (1.80-7.70); Neutrophils % (A) 80.3 %; Platelet Count 253 X 10*3/uL (140-440); RBC 2.99 X 10*6/uL (4.10-5.20); RDW 17.8 % (11.5-14.5); WBC 7.36 X 10*3/uL (4.50-10.00)
[2020-08-13 10:27] LABS: African American GFR (CKD) 95.5 (60.0-200.0); Albumin 3.1 g/dL (3.80-4.90); Albumin/Globulin Ratio 2.21 (1.60-3.17); Anion Gap 8.8 mmol/L (4.00-12.00); BUN/Creat Ratio 21.43 Ratio (12.00-20.00); Calcium 8.3 mg/dL (8.7-10.3); Carbon Dioxide 27.2 mmol/L (21.6-31.8); Globulin 1.4 g/dL (1.6-3.3); Non-African American GFR(CKD) 82.4 (60.0-200.0); Potassium 5.3 mmol/L (3.5-5.5); Total Bilirubin 0.2 mg/dL (0.2-1.2); Total Protein 4.5 g/dL (6.2-8.2)
[2020-08-13 14:45] VITALS: BMI 27.4
--- NOTE | 2020-08-13 17:54 | PN ---
PROGRESS NOTE SUBJECTIVE: This is the 80-year-old white female who is going to get radiation to her chest today by Dr. Wiley Gusman, Dr. Umm Tate and Dr. Acuna. We are going to figure out what to do with the immunotherapy for metastatic melanoma which is throughout her spine and into her lungs. Pain control has been increased with Duragesic 50 and Percocet 10 q.i.d. Prognosis is guarded. Cardiovascular: S1, S2. Lungs clear. GI is soft. Extremities: Negative Homans. ASSESSMENT: Metastatic melanoma starting in the rectum with positive bone scan and multiple metastases throughout the spine and the ribs which is getting radiation therapy today. Pain control. Possible immunotherapy after radiation is done. Prognosis is guarded. MMODL / IJN: [id number] /
--- NOTE | 2020-08-13 18:33 | P.PN ---
Subjective Progress Note Date: 08/13/20 Principal diagnosis: COPD exacerbation, pain secondary to melanoma metastases to the bone In follow-up today patient is c/o pain, in the sternal and left anterior chest area, wrapping around to the back. We had a long discussion about patient's pain today. She states that she's not having any hip pain, I must have misunderstood her yesterday. She does report that the pain when she came to hospital started in her neck and radiated all across her chest, upper back and shoulders, it is better than on admission. She still rates it 8-9 out of 10, constantly, it does make it difficult for her to use the walker because of the location of the pain. Objective - Vital Signs Vital signs: Vital Signs Temp 98.1 F 08/13/20 14:50 Pulse 69 08/13/20 14:50 Resp 16 08/13/20 14:50 BP 135/77 08/13/20 14:50 Pulse Ox 95 08/13/20 14:50 Intake & Output 08/12/20 08/13/20 08/13/20 18:59 06:59 18:59 Weight 77.111 kg Other: Voiding Method Bedside Commode Diaper # Voids 3 1 - Constitutional General appearance: Present: cooperative, no acute distress, thin - EENT Eyes: Present: anicteric sclerae, EOMI ENT: Present: hearing grossly normal - Respiratory Respiratory: bilateral: CTA - Cardiovascular Rhythm: regular Heart sounds: normal: S1, S2 - Peripheral edema leg Peripheral Edema: bilateral: None - Gastrointestinal General gastrointestinal: Present: normal bowel sounds, soft - Neurologic Neurologic: Present: CNII-XII intact - Musculoskeletal Musculoskeletal: Present: generalized weakness, strength equal bilaterally - Psychiatric Psychiatric: Present: A&O x's 3, appropriate affect, intact judgment & insight - Labs CBC & Chem 7: 08/13/20 06:00 08/13/20 06:00 Labs: Abnormal Lab Results - Last 24 Hours (Table) 08/13/20 08/13/20 Range/Units 06:00 06:00 RBC 2.99 L (4.10-5.20) X 10*6/uL Hgb 8.5 L (12.0-15.0) g/dL Hct 29.6 L (37.2-46.3) % MCV 99.0 H (80.0-97.0) fL MCHC 28.7 L (32.0-37.0) g/dL RDW 17.8 H (11.5-14.5) % MPV 9.2 L (9.5-12.2) fL Immature Gran # 0.05 H (0.00-0.04) X 10*3/uL Lymphocytes # 0.74 L (0.90-5.00) X 10*3/uL BUN/Creatinine Ratio 21.43 H (12.00-20.00) Ratio Glucose 67 L (70-110) mg/dL Calcium 8.3 L (8.7-10.3) mg/dL Alkaline Phosphatase 155 H (41-126) U/L Total Protein 4.5 L (6.2-8.2) g/dL Albumin 3.10 L (3.80-4.90) g/dL Globulin 1.4 L (1.6-3.3) g/dL Assessment and Plan (1) Acute exacerbation of chronic obstructive pulmonary disease Narrative/Plan: Care per Primary team Current Visit: Yes Status: Acute Priority: High Code(s): J44.1 - CHRONIC OBSTRUCTIVE PULMONARY DISEASE W (ACUTE) EXACERBATION SNOMED Code(s): 247325769 (2) Cancer related pain Narrative/Plan: Radiation had started for painful bone metastases. patient is going to need transportation for radiation appointments. I believe social work is involved in her case Continue fentanyl and Percocet. She had reported some relief in pain with the use of IV tramadol, she states the dose that was given to her yesterday did nothing. She was started on daily Mobic yesterday, just a few hours after the tramadol and she states no improvements. We'll try adding Naprosyn 3 times a day. Patient is on a daily Protonix, may have to prescribe twice a day dose. Daily medications for prevention of narcotic induced constipation, when necessa ry milk of magnesia. Goal is for soft easily passable bowel movement every 1-3 days. Current Visit: Yes Status: Acute Priority: High Code(s): G89.3 - NEOPLASM RELATED PAIN (ACUTE) (CHRONIC) SNOMED Code(s): 92255837099416 (3) Metastatic disease Current Visit: Yes Status: Acute Priority: High Code(s): C79.9 - SECONDARY MALIGNANT NEOPLASM OF UNSPECIFIED SITE SNOMED Code(s): 067860297 (4) Failure to thrive syndrome, adult Narrative/Plan: Patient has a lot of social issues including homelessness. 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 Follo w-up on iron studies in 4 weeks. Continue to monitor hemoglobin and transfuse as needed her hemoglobin less than 7. Current Visit: Yes Status: Chronic Priority: Medium Code(s): D50.9 - IRON DEFICIENCY ANEMIA, UNSPECIFIED SNOMED Code(s): 60717622 Plan: Patient and I discussed her CODE STATUS today. She has requested a full code with instructions, she does not want to be intubated.
[2020-08-13] MEDS: traZODone HCL 100 MG TAB PO SCH (20:45)
[2020-08-13] MEDS: atenoloL 25 MG TAB PO SCH (20:45)
[2020-08-13] MEDS: ALPRAZolam 1 MG TAB PO PRN (20:45)
[2020-08-14] MEDS: HYDROmorphone 1 MG/ML 1 ML SYRINGE IVP PRN ×3 (06:07→20:55)
[2020-08-14] MEDS: LEVOTHYROXINE 50 MCG TAB PO SCH (06:08)
[2020-08-14] MEDS: FERROUS SULFATE 325 MG TAB PO SCH ×2 (06:59→20:56)
[2020-08-14] MEDS: SENNOSIDES-DOCUSATE SODIUM 1 EACH TAB PO SCH ×2 (06:59→20:56)
[2020-08-14] MEDS: PANTOPRAZOLE 40 MG TABLET PO SCH (06:59)
[2020-08-14] MEDS: CITALOPRAM HYDROBROMIDE 20 MG TAB PO SCH (06:59)
[2020-08-14] MEDS: POTASSIUM CHLORIDE ER 20 MEQ TAB.ER PO SCH ×2 (06:59→20:56)
[2020-08-14] MEDS: predniSONE 10 MG TAB PO SCH (07:00)
[2020-08-14] MEDS: NAPROXEN 250 MG TAB PO SCH ×3 (07:00→20:57)
[2020-08-14] MEDS: IPRATROPIUM-ALBUTEROL 3 ML NEB INHALATION SCH ×4 (07:22→19:48)
[2020-08-14 10:20] LABS: Basophils # (A) 0.02 X 10*3/uL (0.00-0.10); Basophils % (A) 0.2 %; Eosinophils # (A) 0.15 X 10*3/uL (0.04-0.35); Eosinophils % (A) 1.9 %; HCT 32.5 % (37.2-46.3); HGB 9.1 g/dL (12.0-15.0); Lymphocytes # (A) 0.63 X 10*3/uL (0.90-5.00); Lymphocytes % (A) 7.8 %; MCH 27.7 pg (27.0-32.0); MCV 98.8 fL (80.0-97.0); Mean Platelet Volume 9.4 fL (9.5-12.2); Monocytes # (A) 0.57 X 10*3/uL (0.20-1.00); Monocytes % (A) 7.1 %; Neutrophils # (A) 6.61 X 10*3/uL (1.80-7.70); Neutrophils % (A) 82.3 %; Platelet Count 296 X 10*3/uL (140-440); RBC 3.29 X 10*6/uL (4.10-5.20); RDW 17.9 % (11.5-14.5); WBC 8.04 X 10*3/uL (4.50-10.00)
[2020-08-14 13:21] LABS: African American GFR (CKD) 81.3 (60.0-200.0); Albumin 3.2 g/dL (3.80-4.90); Anion Gap 8.8 mmol/L (4.00-12.00); Calcium 8.5 mg/dL (8.7-10.3); Carbon Dioxide 26.2 mmol/L (21.6-31.8); Globulin 1.6 g/dL (1.6-3.3); Non-African American GFR(CKD) 70.1 (60.0-200.0); Potassium 4.7 mmol/L (3.5-5.5); Total Bilirubin 0.2 mg/dL (0.2-1.2); Total Protein 4.8 g/dL (6.2-8.2)
--- NOTE | 2020-08-14 15:09 | P.PN ---
Subjective Progress Note Date: 08/14/20 Principal diagnosis: COPD exacerbation, pain secondary to melanoma metastases to the bone In follow-up today patient is c/o pain, she reports pain "9.7/10, now 7.3/10". So, improved. She is most concerned about SOB with just trying to stand, very weak. Objective - Vital Signs Vital signs: Vital Signs Temp 97.8 F 08/14/20 14:00 Pulse 69 08/14/20 14:00 Resp 18 08/14/20 14:00 BP 105/58 08/14/20 14:00 Pulse Ox 94 L 08/14/20 14:00 Intake & Output 08/13/20 08/14/20 08/14/20 18:59 06:59 18:59 Weight 77.111 kg Other: Voiding Method Bedside Commode Bedside Commode Diaper Diaper # Voids 5 2 - Constitutional General appearance: Present: cooperative, no acute distress, thin - EENT Eyes: Present: anicteric sclerae, EOMI ENT: Present: hearing grossly normal - Respiratory Respiratory: bilateral: diminished - Cardiovascular Heart sounds: normal: S1, S2 - Peripheral edema foot Peripheral Edema: bilateral: None - Gastrointestinal General gastrointestinal: Present: normal bowel sounds, soft - Neurologic Neurologic: Present: CNII-XII intact - Musculoskeletal Musculoskeletal: Present: generalized weakness - Psychiatric Psychiatric: Present: A&O x's 3, appropriate affect, intact judgment & insight - Labs CBC & Chem 7: 08/14/20 06:12 08/14/20 06:12 Labs: Abnormal Lab Results - Last 24 Hours (Table) 08/14/20 08/14/20 Range/Units 06:12 06:12 RBC 3.29 L (4.10-5.20) X 10*6/uL Hgb 9.1 L (12.0-15.0) g/dL Hct 32.5 L (37.2-46.3) % MCV 98.8 H (80.0-97.0) fL MCHC 28.0 L (32.0-37.0) g/dL RDW 17.9 H (11.5-14.5) % MPV 9.4 L (9.5-12.2) fL Absolute Nucleated RBC 0.02 H (0.00-0.00) X 10*3/uL Immature Gran # 0.06 H (0.00-0.04) X 10*3/uL Lymphocytes # 0.63 L (0.90-5.00) X 10*3/uL NRBC/100 WBC Diff 0.2 H (0.0-0.0) /100 WBCS Calcium 8.5 L (8.7-10.3) mg/dL Alkaline Phosphatase 170 H (41-126) U/L Total Protein 4.8 L (6.2-8.2) g/dL Albumin 3.20 L (3.80-4.90) g/dL Assessment and Plan (1) Acute exacerbation of chronic obstructive pulmonary disease Narrative/Plan: Care per Primary team Current Visit: Yes Status: Acute Priority: High Code(s): J44.1 - CHRONIC OBSTRUCTIVE PULMONARY DISEASE W (ACUTE) EXACERBATION SNOMED Code(s): 750089578 (2) Cancer related pain Narrative/Plan: Radiation started for painful bone metastases. We made minor adjustments in meds-pt states pain is now tolerable. Cont XRT and pain meds as prescribed Confirmed with CM, Soc Work that pt can be transported to XRT from [facility] Current Visit: Yes Status: Acute Priority: High Code(s): G89.3 - NEOPLASM RELATED PAIN (ACUTE) (CHRONIC) SNOMED Code(s): 65223443184874 (3) Metastatic disease Current Visit: Yes Status: Acute Priority: High Code(s): C79.9 - SECONDARY MALIGNANT NEOPLASM OF UNSPECIFIED SITE SNOMED Code(s): 956248214 (4) Failure to thrive syndrome, adult Current Visit: Yes Status: Acute Priority: High Code(s): R62.7 - ADULT FAILURE TO THRIVE SNOMED Code(s): 599309365 (5) Malignant melanoma of rectum Narrative/Plan: Once patient's current condition is stabilized and her social situation is fig ured out, then we can discuss possibility of systemic treatment. She will not be considered for systemic treatment until she has rehabilitated enough to return home Current Visit: Yes Status: Acute Priority: High Code(s): C20 - MALIGNANT NEOPLASM OF RECTUM SNOMED Code(s): 643935683 (6) Iron deficiency anemia Narrative/Plan: Iron studies showed iron deficiency, 2 doses of parenteral iron given. Follow- up on iron studies in 4 weeks. Continue to monitor hemoglobin and transfuse as needed her hemoglobin less than 7. Hgb 9.1 Current Visit: Yes Status: Chronic Priority: Medium Code(s): D50.9 - IRON DEFICIENCY ANEMIA, UNSPECIFIED SNOMED Code(s): 78589688 Plan: Pt agrees with admit to [facility] for rehab. She knows she is weak and can't take care of herself. She knows that no systemic treatment can be done until she is able to go home/be discharged from rehab.
[2020-08-14] MEDS: oxyCODONE-APAP 10-325MG 1 EACH TAB PO PRN (16:43)
--- NOTE | 2020-08-14 19:03 | DS ---
DISCHARGE SUMMARY DISCHARGE MEDICINES: 1. Bisacodyl 10 mg daily p.r.n. 2. Fentanyl patch 50 mcg/hour every 72 hours p.r.n. 3. Naprosyn 500 b.i.d. 4. DuoNeb q.i.d. 5. Milk of Magnesia 2400 mg b.i.d. 6. Percocet 10/325 b.i.d. 7. Xanax 1-2 mg every 8 hours p.r.n. 8. Celexa 40 mg daily. 9. Tenormin 25 daily. 10.Iron sulfate 325 b.i.d. 11.Protonix 40 mg daily. 12.Desyrel 200 mg daily. 13.Potassium chloride 20 mEq b.i.d. 14.Levothyroxine 50 mcg daily. 15.Senokot 1 b.i.d. PROGNOSIS: Guarded. CONDITION: Stable. Diet as tolerated. HOSPITAL COURSE: This is a white female who came with acute COPD exacerbation, atypical chest pain across the chest. CT scan and bone scan showed multiple metastatic lesions in the liver and in the ribs. Biopsy shows malignant melanoma into the liver, for which radiation therapy was done. She will need to continue with cancer-related into the chest with repeat radiology [facility] to transport her back and forth. She has failure to thrive, dehydration, chronic pain syndrome, significant nature of COPD, hypertension, GERD, depression. Follow up [facility] Angel Stewart [facility]. PT/OT. Increase her strength. Nutrition supplements, pain control, radiation chemo. Follow up with Dr. Acuna for possible oncology chemotherapy or immunotherapy in the future as well as radiation therapy, Dr. Wiley Gusman. MMODL / IJN: [id number] /
[2020-08-14] MEDS: atenoloL 25 MG TAB PO SCH (20:56)
[2020-08-14] MEDS: traZODone HCL 100 MG TAB PO SCH (20:56)
[2020-08-14] MEDS: ALPRAZolam 1 MG TAB PO PRN (20:56)
[2020-08-15] MEDS: oxyCODONE-APAP 10-325MG 1 EACH TAB PO PRN ×3 (01:19→15:43)
[2020-08-15] MEDS: LEVOTHYROXINE 50 MCG TAB PO SCH (05:51)
[2020-08-15] MEDS: HYDROmorphone 1 MG/ML 1 ML SYRINGE IVP PRN ×2 (05:51→12:25)
[2020-08-15] MEDS: NAPROXEN 250 MG TAB PO SCH (06:42)
[2020-08-15] MEDS: POTASSIUM CHLORIDE ER 20 MEQ TAB.ER PO SCH (06:43)
[2020-08-15] MEDS: CITALOPRAM HYDROBROMIDE 20 MG TAB PO SCH (06:43)
[2020-08-15] MEDS: SENNOSIDES-DOCUSATE SODIUM 1 EACH TAB PO SCH (06:43)
[2020-08-15] MEDS: predniSONE 10 MG TAB PO SCH (06:43)
[2020-08-15] MEDS: PANTOPRAZOLE 40 MG TABLET PO SCH (06:43)
[2020-08-15] MEDS: FERROUS SULFATE 325 MG TAB PO SCH (06:44)
[2020-08-15 07:26] VITALS: RESP 18
[2020-08-15] MEDS: IPRATROPIUM-ALBUTEROL 3 ML NEB INHALATION SCH ×2 (09:27→12:49)
--- NOTE | 2020-08-15 10:49 | P.PN ---
Subjective Progress Note Date: 08/15/20 Principal diagnosis: COPD exacerbation, pain secondary to melanoma metastases to the bone In follow-up today patient has continuing c/o of pain, sternal and anterior rib area, mostly unchanged but, pt is tolerating. Her biggest problem is no stamina/endurance, she is very SOB with any activity. This was reviewed with her, encouraged to participate in activity-even in bed. Objective - Vital Signs Vital signs: Vital Signs Temp 98.0 F 08/15/20 07:25 Pulse 59 L 08/15/20 07:25 Resp 18 08/15/20 07:25 BP 91/51 08/15/20 07:25 Pulse Ox 94 L 08/15/20 07:25 Intake & Output 08/14/20 08/15/20 08/15/20 18:59 06:59 18:59 Intake Total 750 Output Total 2 Balance 748 Intake: Oral 750 Output: Urine 2 Other: Voiding Method Bedside Commode Bedside Commode Bedside Commode Diaper Diaper Diaper # Voids 3 - Constitutional General appearance: Present: cooperative, no acute distress, thin - EENT Eyes: Present: anicteric sclerae, EOMI ENT: Present: hearing grossly normal - Respiratory Respiratory: bilateral: diminished - Cardiovascular Heart sounds: normal: S1, S2 Abnormal Heart Sounds: Absent: systolic murmur, diastolic murmur, rub, S3 Gallop, S4 Gallop, click, other - Gastrointestinal General gastrointestinal: Present: normal bowel sounds, soft - Psychiatric Psychiatric: Present: A&O x's 3, appropriate affect, intact judgment & insight - Labs CBC & Chem 7: 08/14/20 06:12 08/14/20 06:12 Labs: Abnormal Lab Results - Last 24 Hours (Table) 08/14/20 Range/Units 06:12 Calcium 8.5 L (8.7-10.3) mg/dL Alkaline Phosphatase 170 H (41-126) U/L Total Protein 4.8 L (6.2-8.2) g/dL Albumin 3.20 L (3.80-4.90) g/dL Assessment and Plan (1) Acute exacerbation of chronic obstructive pulmonary disease Narrative/Plan: Care per Primary team. Reviewed with pt that this is the medical condition that is contributing to her very poor activity tolerance. To minimize impact on her PS she is going to have to work very hard at it. Current Visit: Yes Status: Acute Priority: High Code(s): J44.1 - CHRONIC OBSTRUCTIVE PULMONARY DISEASE W (ACUTE) EXACERBATION SNOMED Code(s): 704224018 (2) Cancer related pain Narrative/Plan: Radiation started for painful bone metastases. We made minor adjustments in meds-pt states pain is now tolerable. Cont XRT and pain meds as prescribed Reviewed with pt that we will cont to try and help control her pain but, most likely, she is going to have some degree of chronic pain Confirmed with CM, Soc Work that pt can be transported to XRT from [facility] Current Visit: Yes Status: Acute Priority: High Code(s): G89.3 - NEOPLASM RELATED PAIN (ACUTE) (CHRONIC) SNOMED Code(s): 52348584191462 (3) Metastatic disease Current Visit: Yes Status: Acute Priority: High Code(s): C79.9 - SECONDARY MALIGNANT NEOPLASM OF UNSPECIFIED SITE SNOMED Code(s): 855261621 (4) Failure to thrive syndrome, adult Narrative/Plan: Patient has a lot of social issues including homelessness. Hopefully she can improve her physical condition in [facility]. Maybe she can get some social suppor t and counseling Current Visit: Yes Status: Acute Priority: High Code(s): R62.7 - ADULT FAILURE TO THRIVE SNOMED Code(s): 895708811 (5) Malignant melanoma of rectum Narrative/Plan: Once patient's current condition is stabilized and her social situation is figured out, then we can discuss possibility of systemic treatment. She will not be considered for systemic treatment until she has rehabilitated enough to return home Current Visit: Yes Status: Acute Priority: High Code(s): C20 - MALIGNANT NEOPLASM OF RECTUM SNOMED Code(s): 195898325 (6) Iron deficiency anemia Narrative/Plan: Iron studies showed iron deficiency, 2 doses of parenteral iron given. Follow- up on iron studies in 4 weeks. Current Visit: Yes Status: Chronic Priority: Medium Code(s): D50.9 - IRON DEFICIENCY ANEMIA, UNSPECIFIED SNOMED Code(s): 29211353 Plan: Pt agrees with admit to [facility] for rehab. She knows she is weak and can't take care of herself. Reinforced no systemic treatment can be done until she is able to go home/be discharged from rehab. attests: I have performed H&P, developed impression and plan of care for patient. Discussed with dictator. Agree with dictation, documented as a scribe.
[2020-08-15 14:28] VITALS: BP 130/78; PULSE 61; TEMP 97.9
== END 2020-08-15 16:06 | DRG 543 ==
LOC: EC 07:01 → 4SSUR 15:10
PROVIDERS: ADMIT Family Medicine; ATTEND Family Medicine
PROC: DP0 Radiation Therapy, Musculoskeletal System, Beam Radiation (ICD-10-PCS; principal; 2020-08-13)
PROC: DP0 Radiation Therapy, Musculoskeletal System, Beam Radiation (ICD-10-PCS; 2020-08-13)
PROC: DP0C3ZZ Beam Radiation of Other Bone using Electrons (ICD-10-PCS; 2020-08-13)
DX: C79.51 Secondary malignant neoplasm of bone (principal); C78.7 Secondary malignant neoplasm of liver and intrahepatic bile duct; J44.1 Chronic obstructive pulmonary disease with (acute) exacerbation; I48.92 Unspecified atrial flutter; C78.00 Secondary malignant neoplasm of unspecified lung; C20 Malignant neoplasm of rectum; R62.7 Adult failure to thrive; E86.0 Dehydration; E78.5 Hyperlipidemia, unspecified; I34.1 Nonrheumatic mitral (valve) prolapse; I48.91 Unspecified atrial fibrillation; M06.9 Rheumatoid arthritis, unspecified; E07.9 Disorder of thyroid, unspecified; K21.9 Gastro-esophageal reflux disease without esophagitis; D64.9 Anemia, unspecified; R53.81 Other malaise; F41.9 Anxiety disorder, unspecified; D50.9 Iron deficiency anemia, unspecified; G89.4 Chronic pain syndrome; F32.9 Major depressive disorder, single episode, unspecified; F17.200 Nicotine dependence, unspecified, uncomplicated; Z82.5 Family history of asthma and other chronic lower respiratory diseases; Z80.1 Family history of malignant neoplasm of trachea, bronchus and lung; Z82.3 Family history of stroke; Z82.49 Family history of ischemic heart disease and other diseases of the circulatory system; E03.9 Hypothyroidism, unspecified; G89.3 Neoplasm related pain (acute) (chronic); K59.03 Drug induced constipation; T40.605A Adverse effect of unspecified narcotics, initial encounter; Z85.820 Personal history of malignant melanoma of skin; Z59.0 Homelessness; Z20.822 Contact with and (suspected) exposure to COVID-19; N18.9 Chronic kidney disease, unspecified; I12.9 Hypertensive chronic kidney disease with stage 1 through stage 4 chronic kidney disease, or unspecified chronic kidney disease; Z90.710 Acquired absence of both cervix and uterus; Z96.653 Presence of artificial knee joint, bilateral; Z96.642 Presence of left artificial hip joint; Z96.611 Presence of right artificial shoulder joint; Z79.890 Hormone replacement therapy; K64.4 Residual hemorrhoidal skin tags; Z79.899 Other long term (current) drug therapy; Z96.1 Presence of intraocular lens
CPT/HCPCS: 36410; 36415; 71046; 71275; 76937; 77280; 77290; 77307; 77334; 77336; 77387; 77412; 78306; 80053; 81001; 82550; 82607; 82728; 82746; 83540; 83550; 83605; 83735; 83880; 83921; 84484; 85025; 85610; 85730; 87040; 87086; 87324; 87636; 93005; 94640; 94760; 96361; 96374; 96376; 99285